=== PATIENT | female | born 1940 | race Caucasian/White ===

== ENCOUNTER 2019-07-13 07:47 | Observation (INO) ==
--- NOTE | 2019-06-25 15:17 | Anesthesiology Consultation ---
Date of Service June 25, 2019 Assessment & Plan (1) Encounter for pre-operative examination: Chart Review Chart Review: Pending: Refer to Additional Notes / Consult section (surgeon ordered cardio clearance 06/28/19) and Patient NOT seen in Pre Admission Testing Awaiting surgeon ordered cardio clearance 06/28/19 History Surgery Operation Date: 06/30/19 13:10 Proposed Procedures p Open Repair Ventral Hernia Possible Mesh - Tino Hein MD Height/Weight Height: 5 ft Weight: 70.307 kg Allergies Allergy/AdvReac Type Severity Reaction Status Date / Time celecoxib AdvReac Intermediate GI SYMPTOMS Verified 06/25/19 13:07 hydrocodone AdvReac Unknown STOMACH Verified 06/25/19 13:07 IRRITATION Medications Home Medications Medication Instructions Recorded Confirmed Last Taken atorvastatin 40 mg PO QAM 06/25/19 06/25/19 Unknown carbidopa-levodopa 1 tab PO TID 06/25/19 06/25/19 Unknown clopidogrel 75 mg PO QAM 06/25/19 06/25/19 Unknown levothyroxine 125 mcg PO QAM 06/25/19 06/25/19 Unknown lisinopril 5 mg PO QAM 06/25/19 06/25/19 Unknown metoprolol succinate 25 mg PO QAM 06/25/19 06/25/19 Unknown pantoprazole 40 mg PO QAM 06/25/19 06/25/19 Unknown Past Medical History Medical History (Updated 06/25/19 @ 15:38 by Luisa Motley PA-C) Anxiety CAD (coronary artery disease) 08/2007= PCI of RCA and LCx with FABIOLA; 04/2008= PCI of mid RCA with 2 FABIOLA ; 2008 PCI of pLAD; 2012- FABIOLA to mid RCA GERD (gastroesophageal reflux disease) Hyperlipidemia Hypertension Hypothyroidism Parkinson disease Prediabetes Per records Past Family History Family History (Updated 06/25/19 @ 13:23 by Tatianna Vidales RN) Mother Diabetes Past Surgical History Surgical History (Updated 06/25/19 @ 15:34 by Luisa Motley PA-C) History of ankle surgery LEFT History of arthroplasty of right knee x 2 per records History of cardiac cath 08/2007, 04/2008, 2008, 2012 History of cholecystectomy Per records History of colonoscopy History of herniorrhaphy Per records History of hysterectomy History of thumb surgery Per records- right thumb Hx of angioplasty FOLLOWS [place] Social History Smoking Status: Never smoker Do You Dip or Chew Tobacco: No Hx Alcohol Use: No Hx Substance Use: No substance use type: does not use Testing Laboratory Results 06/24/2019 WBC: 5.44 H/H: 13.2/41.2 PLATELETS: 238 SODIUM: 141 POTASSIUM: 3.9 CHLORIDE: 102 CO2: 26 BUN: 20 CREATININE: 1.1 GLUCOSE: 139 Electrocardiogram Date: 12/29/18 Findings: + NSR @ (68) Chest X-Ray Date: 12/16/18 Findings: + NAD Echocardiogram Date: 05/14/18 EF: 55 to 59% LV Function: normal RWMA: + none Other Findings: + LVH (Concentric/borderline) Left atrium moderately enlarged. Grade 1 diastolic dysfunction. Mild aortic sclerosis is present. Aortic stenosis is absent. Proximal ascending thoracic aorta is mildly enlarged with diameter 4 cm. Stress Test Date: 01/02/15 Type: DSE Resting EF: 55-59% Resting LV Function: normal Resting RWMA: + none Stress ECHO negative for inducible ischemia. Stress EKG response normal. MPHR 99%. Mild MR. Mild AV sclerosis. Grade I diastolic dysfunction. Mild cLVH. Cardiac Catheterization Date: 03/26/13 Mid RCA 90%. FABIOLA to mid RCA successful. (per cardio 03/2019 cardio note- LM had no disease; 70% to D1, mild disease to pLAD, non dominant LCx with existing stent 60% lesion, dominant RCA with 90% lesion- s/p PCI with FABIOLA)
[~2019-07-13 07:47] MED LIST: CEFAZOLIN 2000MG 2,000 MG/15 ML SYR IV SCH; LR 15ML/HR IV SCH
[2019-07-13] MEDS ORDERED: CEFAZOLIN 2000MG 2,000 MG/15 ML SYR IV ONE (09:16)
--- NOTE | 2019-07-13 09:16 | History & Physical Bridge Note ---
Date of Service July 13, 2019 History & Physical Bridge Note I have examined the patient, reviewed the History & Physical and in the interval since the performance of the History & Physical I have noted the following changes of clinical significance: no changes noted
[2019-07-13] MEDS ORDERED: LABETALOL HCL IV 5 MG/ML 20ML IV PRN (09:58)
[2019-07-13] MEDS ORDERED: ATROPINE SULFATE 0.1 MG/ML 10ML SYR IV PRN (09:58)
[2019-07-13] MEDS ORDERED: ONDANSETRON INJ 2 MG/ML 2 ML VIAL IV PRN (09:58)
[2019-07-13] MEDS ORDERED: PROMETHAZINE HCL 6.25 MG in SODIUM CHLORIDE 0.9% 50 ML IV PRN (09:58)
[2019-07-13] MEDS ORDERED: MIDAZOLAM HCL 1 MG/ML 2ML VIAL ONE (10:02)
[2019-07-13] MEDS ORDERED: LIDOCAINE HCL 2% 2 ML VIAL/AMP(20MG/ML) INFIL ONE (10:02)
[2019-07-13] MEDS ORDERED: fentaNYL citrate 100 MCG/2 ML VIAL ONE (10:02)
[2019-07-13] MEDS ORDERED: ONDANSETRON INJ 2 MG/ML 2 ML VIAL ONE (10:02)
[2019-07-13] MEDS ORDERED: NEOSTIGMINE METHYLSULFATE 5 MG/5 ML SYR ONE (10:02)
[2019-07-13] MEDS ORDERED: ePHEDrine sulfate 50 MG/ML AMP ONE (10:02)
[2019-07-13] MEDS ORDERED: GLYCOPYRROLATE 0.2 MG/ML VIAL ONE (10:02)
[2019-07-13] MEDS ORDERED: PHENYLEPHRINE HCL 10 MG/ML VIAL ONE (10:02)
[2019-07-13] MEDS ORDERED: SUCCINYLCHOLINE CHLORIDE 20 MG/ML 10 ML VIAL ONE (10:02)
[2019-07-13] MEDS ORDERED: PROPOFOL IV EMULSION 10 MG/ML 20 ML VIAL IV ONE (10:02)
[2019-07-13] MEDS ORDERED: DEXAMETHASONE SOD INJ 4 MG/ML VIAL ONE (10:02)
[2019-07-13] MEDS ORDERED: BUPIVACAINE 0.5 % 5 MG/1 ML MPF 30ML VIAL ONE (10:29)
[2019-07-13] MEDS ORDERED: BACITRACIN OINT 15 GM TUBE ONE (10:30)
[2019-07-13] MEDS ORDERED: LIDOCAINE HCL 1% 20 ML VIAL ONE (10:30)
[2019-07-13] MEDS ORDERED: HydrALAZINE HCL 20 MG/ML VIAL ONE (11:48)
[2019-07-13] MEDS ORDERED: LARYING-O-JET KIT (LTA) ONE (11:48)
--- NOTE | 2019-07-13 11:56 | Post Operative Brief Note ---
Immediate Post Op Note v1 Date of Surgery July 13, 2019 Pre & Post Diagnosis Operation Date: 07/01/19 09:30 <No data on this case meets the specified criteria> Operation Date: 07/13/19 09:30 Pre-Op Diagnosis: Ventral Hernia without Obstruction or Gangrene Post-Op Diagnosis: Ventral Hernia without Obstruction or Gangrene I identified the patient and participated in the time-out.: Yes Procedure Operation Date: 07/01/19 09:30 <No data on this case meets the specified criteria> Operation Date: 07/13/19 09:30 Actual Procedures p Open Ventral Hernia Repair, lysis of adhesion(Not Applicable) - Tino Hein MD Surgeon Tino Hein MD [employer] Supervisor DIPIKA Claros Estimated Blood Loss 10 Findings Consistent with Post-Op Diagnosis 3 small ventral hernia, size about 1x1cm each Fluids 1000ml Specimens none Anesthesia Type General Complications none Disposition Accompanied Patient To Recovery: Yes Disposition: Recovery Room Overlapping Procedure I was immediately available: during the entire case.
[2019-07-13] MEDS ORDERED: MoRPHine SULFATE 2 MG/ML CARP IV PRN (12:16)
[2019-07-13] MEDS: fentaNYL citrate 100 MCG/2 ML VIAL IV PRN ×4 (12:17→12:32)
--- NOTE | 2019-07-13 12:42 | Anesthesiology Progress Note ---
Date of Service July 13, 2019 Anesthesia Post Procedure Vital Signs Vital Signs: Temp Pulse Pulse Resp BP BP Pulse Ox 07/13/19 12:30 69 16 155/68 H 94 07/13/19 12:20 69 16 147/58 H 99 07/13/19 12:10 36.2 C L 70 18 151/71 H 100 07/13/19 08:23 36.6 C 67 18 179/84 H 96 Pain Intensity Abdomen: Pain Intensity: 6 Transfer of Care Handoff Completed per policy Notes Mental Status: alert / awake / arousable Patient Amnestic to Procedure: Yes Nausea / Vomiting: adequately controlled Pain: adequately controlled Airway Patency, RR, SpO2: stable & adequate BP & HR: stable & adequate Hydration State: stable & adequate Anesthetic Complications: no major complications apparent
[2019-07-13] MEDS ORDERED: CARBIDOPA/LEVODOPA 50/200MG EXT REL TAB PO SCH ×2 (14:00→21:00)
[2019-07-13] MEDS ORDERED: CARBIDOPA/LEVODOPA 25/100MG TAB PO SCH ×3 (14:00→16:00)
--- NOTE | 2019-07-13 14:32 | Hospitalist Consultation ---
Date of Consultation July 13, 2019 Assessment & Plan (1) Status post repair of ventral hernia: -POD#[address] her[address] repair per Dr. Hein -Management as per general surgery (2) CAD (coronary artery disease): -Appears stable, no reports of chest pain -Resume aspirin and Plavix tomorrow per general surgery, continue statin and beta-paul -Plavix has been on hold 4 days preoperatively (3) Parkinson disease: -Continue carbidopa/levodopa, rasagiline (4) Anxiety: -Continue sertraline (5) Hypothyroid: -Continue levothyroxine (6) DVT prophylaxis: -SCDs as per general surgery Thank you for this consultation. We will follow the patient with you during their hospital stay. You can reach a member of the [facility] Hospitalist Team 02/12 via pager @ [phone]. Supervising Physician Co-Signing Physician Notes Attending addendum The patient was seen and examined in medical floor She is a status post repair of ventral hernia with history of significant CAD with multiple stent placement Denies any other symptoms except abdominal discomfort and pain On examination Lying in bed comfortably Hemodynamically stable with blood pressure on the upper side of systolic 172 Chest-clear to auscultate bilaterally Heart-S1-S2, regular Abdomen-not examined Extremities-trace edema bilaterally DENTAL INTERN-alert, awake and oriented x3 Labs before surgery reviewed Has significant CAD with multiple stent placement in the past-remains stable and free of symptoms Status post ventral hernia repair, POD #0; management as per surgery Agree with assessment and plan as outlined above by Mary Sutherland History of Present Illness Reason for Consultation: Postop medical management Requesting Physician: Dr. Hein Attending Physician: Dr. Sutherland History of Present Illness 78-year-old female who is status post ventral hernia repair today by Dr. Hein. Postoperatively, the patient is reporting some nausea however otherwise is doing well. She has not had any vomiting. Pain is well controlled. Denies chest pain shortness of breath. No lightheadedness or dizziness. She has voided since surgery. Allergies Allergy/AdvReac Type Severity Reaction Status Date / Time celecoxib AdvReac Intermediate GI SYMPTOMS Verified 07/13/19 08:20 hydrocodone AdvReac Unknown STOMACH Verified 07/13/19 08:20 IRRITATION Home Medications Home Medications Medication Instructions Recorded Confirmed Type atorvastatin 40 mg PO QAM 06/25/19 07/13/19 History carbidopa-levodopa 1 tab PO PM 06/25/19 07/13/19 History clopidogrel 75 mg PO QAM 06/25/19 07/13/19 History levothyroxine 125 mcg PO QAM 06/25/19 07/13/19 History lisinopril 5 mg PO QAM 06/25/19 07/13/19 History metoprolol succinate 37.5 mg PO QAM 06/25/19 07/13/19 History pantoprazole 40 mg PO QAM 06/25/19 07/13/19 History aspirin 81 mg PO DAILY 07/13/19 07/13/19 History carbidopa-levodopa 1.5 tab PO TID 07/13/19 07/13/19 History multivitamin 1 cap PO DAILY 07/13/19 07/13/19 History rasagiline 1 mg PO DAILY 07/13/19 07/13/19 History sertraline 50 mg PO DAILY 07/13/19 07/13/19 History Patient History Medical History Anxiety CAD (coronary artery disease) Status post August 2007 PCI of both the RCA and LCX with FABIOLA Status post April 2008 PCI of the mid RCA with 2 FABIOLA Status post May 2008 PCI of the proximal LAD Status post March 2013 PCI of the RCA with a FABIOLA GERD (gastroesophageal reflux disease) Hyperlipidemia Hypertension Hypothyroidism Parkinson disease Prediabetes Per records Surgical History History of ankle surgery LEFT History of arthroplasty of right knee x 2 per records History of cardiac cath 08/2007, 04/2008, 2008, 2012 History of cholecystectomy Per records History of colonoscopy History of herniorrhaphy Per records History of hysterectomy History of thumb surgery Per records- right thumb Hx of angioplasty FOLLOWS [place] Family History Mother Diabetes Social History Preferred Language: Albanian Communication Ability: Effective Certified Social Workers In Health Care Required: No Beliefs That Will Affect Care: None Current Living Situation: Spouse Other Information That Helps Us Care for You: No Feels Safe at Home: Yes Safety Concerns: Feels Safe At This Time Smoking Status: Never smoker Do You Dip or Chew Tobacco: No ; Second Hand Exposure: No ; Tobacco Cessation Education Requested by Patient: No Hx Alcohol Use: No Hx Substance Use: No Review of Systems Review of Systems: ROS per HPI, all other systems reviewed and negative Physical Exam Constitutional: WD/WN, vitals as above Eyes: PERRL, conjunctivae normal, anicteric sclerae ENMT: external ear and nose normal, oropharynx normal Respiratory: normal respiratory effort, lungs clear to auscultation Cardiovascular: Rate/Rhythm: regular rate and regular rhythm Vessels: normal peripheral pulses Extremities: no edema Gastrointestinal (Abdomen): Inspection/Auscultation: normal bowel sounds and + abdominal surgical incision (Midline dressing dry and intact) Percussion/Palpation: + abdomen tender (Mild incisional tenderness noted) and abdomen soft; no hepatosplenomegaly Musculoskeletal: no cyanosis or clubbing, extremities motor strength 5/5 Skin: no rashes, warm and dry Neurologic: PERRL, EOMI, accommodation nl, no face palsy, no dysarthria Psychiatric: A+Ox3, euthymic affect Results & Data ([facility]) Vital Signs (Past 12 Hours) Vital Signs Temp Pulse Pulse Resp BP BP Pulse Ox 07/13/19 13:25 72 16 167/81 H 97 07/13/19 13:00 36.5 C 76 18 167/71 H 96 07/13/19 12:45 36.7 C 74 16 170/81 H 96 07/13/19 12:30 69 16 155/68 H 94 07/13/19 12:20 69 16 147/58 H 99 07/13/19 12:10 36.2 C L 70 18 151/71 H 100 07/13/19 08:23 36.6 C 67 18 179/84 H 96
[2019-07-13] MEDS: LACTATED RINGER'S 1,000 ML IV SCH ×2 (15:41→23:07)
[2019-07-13] MEDS: TRAMADOL HCL 50 MG TABLET PO PRN (17:27)
[2019-07-13] MEDS: ONDANSETRON INJ 2 MG/ML 2 ML VIAL IV PRN (17:28)
[2019-07-13] MEDS ORDERED: CLOPIDOGREL BISULFATE 75 MG TAB PO SCH ×2 (18:00)
[2019-07-13] MEDS ORDERED: CEFAZOLIN 1000MG 1,000 MG/7.5 ML SYR IV ONE (18:30)
[2019-07-13] MEDS ORDERED: ATORVASTATIN 40 MG TAB PO SCH (21:00)
--- NOTE | 2019-07-13 23:55 | Operative Report ---
DATE OF OPERATION: 07/13/2019 PREOPERATIVE DIAGNOSIS: Ventral hernia. POSTOPERATIVE DIAGNOSIS: Ventral hernia. OPERATION: Open repair of ventral hernia. SURGEON: Tino Hein MD LEAD DESIGNER: Cyn Cronin PA-C. ANESTHESIA: General. ESTIMATED BLOOD LOSS: About 20 mL. FINDINGS: Small ventral hernia, size about 1 x 1 cm each. COMPLICATIONS: None. INDICATIONS FOR THE PROCEDURE: This is an 78-year-old female who presented with symptomatic ventral hernia. The patient required to do the open repair of ventral hernia, possible with mesh. I did talk to the patient about the benefit, the risk, alternate procedure. I indicated the risks may include but not limited such as bleeding, infection, hernia recurrence, injury to bowel, patient understands. She signed informed consent and I answered all questions. DETAILS OF PROCEDURE: We brought the patient to the OR, put the patient in the supine position. The patient received SCD on bilateral legs to prevent DVT. Also, patient received 2 grams Ancef IV for prophylactic antibiotic. The patient received general anesthesia without difficulty. The abdomen was appropriately draped in routine sterile fashion. After timeout, I made about 8 cm incision on the hernia sac on the left side of the abdomen and the dissection of the subcutaneous layer, found the patient had 3 small hernias. Once we opened the fascia, we completely reduced all 3 hernia, the incision on the fascial layer and based on the 3 hernias are small, about 1 x 1 cm each, I decided to use 0 PDS to close the fascia in continuous running and also based on the patient's age and the chance of hernia recurrence is low, so once we closed the fascia with continuous running with 0 PDS, the abdomen in fascial layer was closed nicely with no tension. Then, I also used #1 Ethibond, closed the fascia, interruptedly. Hemostat is obtained. Then, I closed the subcutaneous layer by using 2-0 Vicryl continuous running, closed skin by using staple. Then, we put the dressing on. The patient tolerated the procedure well. All instrument, needle and sponge count were correct x2 at the end of the case. The patient transferred to recovery room in stable condition and based on the patient's age and also patient had significant nausea and vomiting for the last 2 weeks, we decided to admit the patient to hospital overnight. The patient and patient's family member all agreed to admit to the hospital overnight. I attest to the content of the Intraoperative Record and any orders documented therein. Any exceptions are noted below. DEVENDRA
[2019-07-14] MEDS: ONDANSETRON INJ 2 MG/ML 2 ML VIAL IV PRN (03:36)
[2019-07-14] MEDS: TRAMADOL HCL 50 MG TABLET PO PRN (05:42)
[2019-07-14] MEDS ORDERED: LEVOTHYROXINE SODIUM 125 MCG TABLET PO SCH ×2 (06:30)
[2019-07-14] MEDS ORDERED: CARBIDOPA/LEVODOPA 25/100MG TAB PO SCH (07:30)
[2019-07-14 07:52] LABS: Eosinophils # (auto) 0.02 K/uL (0-0.5); Eosinophils % (auto) 0.2 %; Hematocrit (blood only) 37.3 % (37-47); Hemoglobin 12.1 g/dL (12.0-16.0); Immature Granulocytes # (auto) 0.01 K/uL (0.00-0.02); Immature Granulocytes % (auto) 0.1 %; Lymphocytes # (auto) 1.33 K/uL (1.2-3.4); Lymphocytes % (auto) 14.3 %; Mean Corpuscular Hemoglobin 28.7 pg (25-34); Mean Corpuscular Hgb Conc 32.4 g/dL (32-36); Mean Corpuscular Volume 88.6 fL (80-100); Monocytes # (auto) 1.12 K/uL (0.11-0.59); Monocytes % (auto) 12.1 %; Neutrophils % (auto) 73.3 %; Platelet Count 209 K/uL (130-400); RDW Coefficient of Variation 14.5 % (11.5-14.5); Red Blood Count 4.21 M/uL (4.2-5.4); White Blood Count 9.28 K/uL (4.8-10.8)
[2019-07-14 08:22] LABS: Alanine Aminotransferase < 6 U/L (12-78); Albumin Level 3.1 gm/dl (3.4-5.0); Aspartate Aminotransferase 16 U/L (15-37); BUN Creatinine Ratio 16.5 (10-20); Blood Urea Nitrogen 14 mg/dl (7-18); Calcium 9.3 mg/dl (8.5-10.1); Carbon Dioxide 30 mmol/L (21-32); Chloride 102 mmol/L (98-107); Creatinine Clr Calc Pharmacy 47.4 ml/min; Est GFR (African American) 78.3; Est GFR (Non-African American) 67.6; Glucose 108 mg/dl (70-99); Potassium 3.7 mmol/L (3.5-5.1); Sodium 136 mmol/L (136-145)
[2019-07-14 08:25] LABS: Alkaline Phosphatase 67 U/L (45-117); Bilirubin,Total 1.1 mg/dl (0.2-1); Globulin 3.1 gm/dl (2.5-4.0); Total Protein 6.2 gm/dl (6.4-8.2)
[2019-07-14] MEDS ORDERED: METOPROLOL SUCC 25MG EXT REL TAB PO SCH ×4 (09:00)
[2019-07-14] MEDS ORDERED: NON-FORMULARY PATIENT'S OWN MED PO SCH (09:00)
[2019-07-14] MEDS ORDERED: SERTRALINE HCL 50 MG TABLET PO SCH (09:00)
[2019-07-14] MEDS ORDERED: MULTIVITAMIN TAB PO SCH (09:00)
[2019-07-14] MEDS ORDERED: CLOPIDOGREL BISULFATE 75 MG TAB PO SCH (09:00)
[2019-07-14] MEDS ORDERED: PANTOprazole 40 MG TAB PO SCH ×2 (09:00)
[2019-07-14] MEDS ORDERED: ASPIRIN 81 MG ECTAB PO SCH (09:00)
[2019-07-14] MEDS ORDERED: lisinopriL 5 MG TAB PO SCH ×2 (09:00)
[2019-07-14] MEDS ORDERED: ATORVASTATIN 40 MG TAB PO SCH ×2 (09:00)
--- NOTE | 2019-07-14 09:14 | Hospitalist Progress Note ---
Date of Service July 14, 2019 Assessment & Plan (1) Status post repair of ventral hernia: Ventral Hernia without Obstruction or Gangrene -s/p ventral hernia repair per Dr. Hein on 07/13/2019 -general surgery service discharging the patient on 07/14/2019 -patient advised to follow the general surgery discharge instructions -hospitalist medicine to sign off (2) CAD (coronary artery disease): -no reports of chest pain -Resume aspirin and Plavix, continue statin and beta-paul (3) Parkinson disease: -Continue carbidopa/levodopa, rasagiline (4) Anxiety: -Continue sertraline (5) Hypothyroid: -Continue levothyroxine (6) DVT prophylaxis: -SCDs while inpatient Hospitalist service arranged for primary care doctor appointment Friday July 19, 2019 at 12:45 PM at [facility] Address: [address] [place] [address] [place] [address] Artis Admission and Anticipated Discharge Date Admission Date: July 13, 2019 Subjective Patient seen and examined. well appearing. no acute pain. no vomiting. breathing on room air. no shortness of breath. no chest pain. she is eager to go home today Review of Systems Review of Systems: All systems reviewed & are unremarkable except as noted in HPI & below Physical Exam Constitutional: WD/WN, vitals as above Eyes: PERRL, conjunctivae normal, anicteric sclerae EOM intact bilaterally ENMT: external ear and nose normal, oropharynx normal Neck: trachea midline, no thyromegaly Respiratory: normal respiratory effort, lungs clear to auscultation Cardiovascular: Rate/Rhythm: regular rate and regular rhythm Gastrointestinal (Abdomen): abdomen is soft, there is dressing over the abdomen Musculoskeletal: Head/Neck/Chest: normocephalic and head atraumatic Neurologic: PERRL, EOMI, accommodation nl, no face palsy, no dysarthria CN's II-XI intact bilaterally Psychiatric: A+Ox3, euthymic affect Results & Data ([facility]) Vital Signs (Past 12 Hours) Vital Signs Temp Pulse Pulse Resp BP BP Pulse Ox 07/14/19 06:58 36.8 C 67 16 148/81 H 95 07/14/19 03:53 36.9 C 73 18 134/79 94 03/03/20 23:00 36.7 C 73 16 129/72 95
--- NOTE | 2019-07-14 11:33 | Discharge Summary ---
ADMITTING DIAGNOSIS: Ventral hernia. DISCHARGE DIAGNOSIS: hernia. OPERATION: Open repair of ventral hernia. SURGEON: Tino Hein MD DETAILS OF DISCHARGE SUMMARY: This is an 78-year-old female who had a ventral hernia repair on 07/13/2019. The patient tolerated the procedure well; however, based on the patient's age and also patient had nausea and vomiting for last week. The patient will be required to stay in the hospital overnight after procedure. The patient stayed in the hospital overnight. The patient feels much better. No nausea, no vomiting and no fever and patient tolerates a regular diet. PHYSICAL EXAMINATION: VITAL SIGNS: Temperature is 36.8, respiratory rate is 16, heart rate is 67, blood pressure 148/81, O2 saturation 95% on room air. GENERAL: The patient is alert, awake, oriented x3. HEENT: Within normal limitation. NEUROLOGIC: Intact. NECK: No JVD. CHEST: Bilateral lung sounds clear. HEART: Normal S1, S2. No murmur. ABDOMEN: Soft, no distention. Incision intact. Mild tenderness on the incision site. No redness, no drainage. Bowel sounds positive. EXTREMITIES: No edema. PLAN: The patient wanted to go home. We discharged the patient home today. I gave the patient postop care instruction. The patient understands. The patient can take Tylenol 650 mg p.o. q. 6 hours p.r.n. for pain for 3 days. The patient understands.
== END 2019-07-14 11:00 | disposition home health service (06) ==
LOC: ASU 07:47 → 3N 07:47

== ENCOUNTER 2019-08-14 09:58 | Inpatient (IN) ==
--- NOTE | 2019-08-14 10:25 | Emergency Department Note ---
Impression & Plan Syncope, Elevated troponin, Nausea, Hypertension ED Provider Note NAME: KESHA CALLES AGE: 78 SEX: F : 1940 ARRIVES VIA: Walk-In INFORMANT: Patient ED PROVIDER(S): Serjio Fraire DO CHIEF COMPLAINT: Syncope and nausea HPI: Patient is an 78-year-old female who presents the ER following a syncopal episode that occurred this morning around 1 AM. She notes she was trying to go to the bathroom. She notes she has passed out 2 days ago as well. Yesterday she fell while trying to get a remote. She denies any chest pain or shortness of breath. Patient denies any belly pain but admits to some nausea. Nausea has been present since the surgery. She also admits to some intermittent dry heaving. This has all been present since her hernia repair on July 12. This was performed by Dr. Hein. No other exacerbating or remitting factors. She notes that from the fall yesterday she did hurt her foot. Complains of minimal amount of pain over the mid arch of her right foot. This is persistent and worse with walking. ROS: See above HPI for pertinent positives & negatives. A total of 10 systems reviewed and were otherwise negative. PAST MEDICAL HISTORY:See Below PAST SURGICAL HISTORY:See Below FAMILY HISTORY:See Below SOCIAL HISTORY:See Below HOME MEDICATIONS:See Below ALLERGIES:See Below VITALS:See Below PHYSICAL EXAMINATION: GENERAL: alert, chronically ill appearing, well nourished, no distress, non- toxic HEAD: normal cephalic, atraumatic EYE EXAM: normal conjunctiva, PERRL and EOM's grossly intact OROPHARYNX: no exudate, no erythema, lips, buccal mucosa, and tongue normal and mucous membranes are moist NECK: supple, no nuchal rigidity, no adenopathy, non-tender CHEST: stable to compression anteriorly and posteriorly LUNGS: clear to auscultation. Normal chest wall mechanics HEART: no murmurs, S1 normal and S2 normal ABDOMEN: abdomen soft, non-tender, normo-active bowel sounds, no masses, no rebound or guarding. PELVIS: stable to compression anteriorly and posteriorly BACK: Back is symmetrical on inspection and there is no deformity, no midline tenderness, no CVA tenderness. UPPER EXTREMITIES: full active and passive range of motion of all joints without tenderness to palpation LOWER EXTREMITIES: full active and passive range of motion of all joints without tenderness to palpation with exception of the arch of the right foot. There is bruising dorsal surface of right toe. NEURO EXAM: Normal sensorium, cranial nerves II-XII intact, normal speech, no weakness of arms, no weakness of legs. No drift. [id number] intact. GCS: 15. MEDICAL DECISION MAKING: Patient is an 78-year-old female who presents the ER following a mechanical fall yesterday who had a syncopal episode this morning at 1 AM while she was trying to go to the bathroom. Upon review of her chart recent diagnosis of subdural and subarachnoid hemorrhage was transferred to [facility] [place] in mid July. She notes that since then she has been feeling consistently pretty weak and has been unsteady on her feet. She has been nauseated and had an upset stomach since early July when her hernia repair was performed. IV was established blood work was obtained showed no significant leukocytosis or anemia. BMP with LFTs and adrienne irubin was unremarkable. Troponin was detectable at 0.083. EKG consistent with old. She denied any chest pain or shortness of breath. UA was contaminated with multiple epithelial cells although did have some nitrates. Did hold on treatment and defer to hospitalist as she is asymptomatic. EKG was not significantly changed from previous. Patient was updated at bedside and admitted to the hospitalist for further work-up of her syncopal episodes associated with weakness, ambulatory dysfunction and elevated troponin. Did consider PE although she has no chest pain or shortness of breath. She is not tachycardic or hypoxic. Do favor this is less likely. Triage Nursing notes reviewed. Prior medical records reviewed Vital Signs: reviewed and remarkable for hypertension Differential diagnosis: Differential diagnoses include major intracranial, cervical, spinal, thoracic, abdominal, pelvic and neurologic injury. Fracture, contusion, sprain, strain, laceration, abrasions included as well. ER treatment provided: See below Diagnostics interpreted by me: ECG: Sinus rhythm rate of 65 Left axis T WI in the inferior leads Normal QTC No PVCs Cardiac Monitoring: Sinus rhythm rate of 70 Laboratory studies: As stated above and show below. Imaging studies: Portable AP upright 1 view of the chest shows no focal infiltrate. 2 views of the abdomen shows no obstruction CT of the head and cervical spine showed no acute fractures or bleeds Consultation(s): Discussed with Porfirio De Santiago from [facility] hospitalist team. ED COURSE: Procedures: none Critical Care: None Past Med/Surg History Social History Preferred Language: Nepali Communication Ability: Effective Sizing Sprayer Required: No Beliefs That Will Affect Care: None marital status: Current Living Situation: Spouse Feels Safe at Home: Yes Smoking Status: Never smoker Second Hand Exposure: No ; Hx Alcohol Use: No Hx Substance Use: No Allergies Allergies Allergy/AdvReac Type Severity Reaction Status Date / Time celecoxib AdvReac Intermediate GI SYMPTOMS Verified 07/23/19 12:22 hydrocodone AdvReac Unknown STOMACH Verified 07/23/19 12:22 IRRITATION Home Meds Home Medications Medication Instructions Recorded Confirmed atorvastatin 40 mg PO QAM 06/25/19 08/14/19 carbidopa-levodopa 1 tab PO PM 06/25/19 08/14/19 clopidogrel 75 mg PO QAM 06/25/19 08/14/19 levothyroxine 125 mcg PO QAM 06/25/19 08/14/19 lisinopril 5 mg PO QAM 06/25/19 08/14/19 metoprolol succinate 37.5 mg PO QAM 06/25/19 08/14/19 pantoprazole 40 mg PO QAM 06/25/19 08/14/19 aspirin 81 mg PO DAILY 07/13/19 08/14/19 carbidopa-levodopa 1.5 tab PO TID 07/13/19 08/14/19 multivitamin 1 cap PO DAILY 07/13/19 08/14/19 rasagiline 1 mg PO DAILY 07/13/19 08/14/19 sertraline 50 mg PO DAILY 07/13/19 08/14/19 vitamins A,C,E-mcru-orodjk 0 tab PO DAILY 07/23/19 08/14/19 [PreserVision AREDS] fluconazole 200 mg PO DAILY 08/14/19 08/14/19 ranitidine HCl 150 mg PO DAILY 08/14/19 08/14/19 Results & Data (ED) Vital Signs Vital Signs - 24 hr 08/14/19 10:02 08/14/19 11:19 08/14/19 12:39 Temperature 36.5 C Temperature Source Oral Pulse Rate 71 Pulse Rate [Apical] 72 62 Pulse Rhythm Regular Pulse Rhythm [Apical] Regular Regular Pulse Strength Normal Respiratory Rate 18 18 18 Respiratory Effort / Characteristics Non-Labored Non-Labored Spontaneous Non-Labored Spontaneous Respiratory Depth Normal Normal Normal Respiratory Pattern Regular Regular Regular Blood Pressure 167/84 H Blood Pressure [Left Arm] 190/97 H 197/98 H Blood Pressure Mean 111 Blood Pressure Mean [Left Arm] 128 131 Blood Pressure Position Sitting Pulse Oximetry 99 100 98 Oxygen Delivery Method Room Air Room Air Room Air Sepsis Recent Fever Within 48 Hours No Sepsis Action Taken by Nursing No Action Required 08/14/19 12:47 Temperature Temperature Source Pulse Rate Pulse Rate [Apical] 65 Pulse Rhythm Pulse Rhythm [Apical] Pulse Strength Respiratory Rate 17 Respiratory Effort / Characteristics Respiratory Depth Respiratory Pattern Blood Pressure Blood Pressure [Left Arm] 152/100 H Blood Pressure Mean Blood Pressure Mean [Left Arm] 117 Blood Pressure Position Pulse Oximetry 97 Oxygen Delivery Method Room Air Sepsis Recent Fever Within 48 Hours Sepsis Action Taken by Nursing Laboratory Data Result diagrams: 08/14/19 10:40 08/14/19 10:40 Lab Results 08/14/19 08/14/19 08/14/19 Range/Units 10:40 10:40 11:15 WBC 8.03 (4.8-10.8) K/uL RBC 4.21 (4.2-5.4) M/uL Hgb 12.3 (12.0-16.0) g/dL Hct 37.2 (37-47) % MCV 88.4 (80-100) fL MCH 29.2 (25-34) pg MCHC 33.1 (32-36) g/dL RDW Std Deviation 50.2 H (36.4-46.3) fL RDW Coeff of Ananya 15.5 H (11.5-14.5) % Plt Count 259 (130-400) K/uL MPV 9.5 (7.4-10.4) fL Immature Gran % (Auto) 0.1 % Neut % (Auto) 76.4 % Lymph % (Auto) 13.4 % Ballard % (Auto) 9.7 % Eos % (Auto) 0.4 % Baso % (Auto) 0.0 % Immature Gran # (Auto) 0.01 (0.00-0.02) K/uL Neut # (Auto) 6.13 (1.4-6.5) K/uL Lymph # (Auto) 1.08 L (1.2-3.4) K/uL Ballard # (Auto) 0.78 H (0.11-0.59) K/uL Eos # (Auto) 0.03 (0-0.5) K/uL Baso # (Auto) 0.00 (0-0.2) K/uL Sodium 134 L (136-145) mmol/L Potassium 3.8 (3.5-5.1) mmol/L Chloride 101 (98-107) mmol/L Carbon Dioxide 28 (21-32) mmol/L Anion Gap 6.0 (3-11) BUN 15 (7-18) mg/dl Creatinine 1.06 (0.6-1.2) mg/dl Est Cr Clr Drug Dosing Not Reportable Est GFR ( Amer) 57.4 Est GFR (Non-Af Amer) 49.6 BUN/Creatinine Ratio 13.9 (10-20) Glucose 108 H (70-99) mg/dl Calcium 9.0 (8.5-10.1) mg/dl Magnesium 1.8 (1.8-2.4) mg/dl Total Bilirubin 0.9 (0.2-1) mg/dl AST 22 (15-37) U/L ALT 13 (12-78) U/L Alkaline Phosphatase 86 (45-117) U/L Troponin I 0.083 H* (0-0.045) ng/ml Total Protein 7.1 (6.4-8.2) gm/dl Albumin 3.7 (3.4-5.0) gm/dl Globulin 3.4 (2.5-4.0) gm/dl Albumin/Globulin Ratio 1.1 (0.9-2) TSH 0.320 (0.300-4.500) uIu/ml Urine Color Yellow Urine Appearance Clear (Clear) Urine pH 5.5 (4.5-7.5) Ur Specific [place] 1.008 (1.000-1.030) Urine Protein Negative (Negative) Urine Glucose (UA) Negative (Negative) Urine Ketones Negative (Negative) Urine Blood Negative (Negative) Urine Nitrite Positive A (Negative) Urine Bilirubin Negative (Negative) Urine Urobilinogen Negative (Negative) Ur Leukocyte Esterase 1+ H (Negative) Urine WBC (Auto) 10-30 H (0-5) /hpf Urine RBC (Auto) 0-4 (0-4) /hpf U Hyaline Cast (Auto) 1-5 (0-5) /lpf U Epithel Cells (Auto) >30 H (0-5) /lpf Urine Bacteria (Auto) 4+ H (Negative) Administered Medications Discontinued Medications Sodium Chloride (Nss) 500 mls @ 999 mls/hr IV .Q31M JESUS Stop: 08/14/19 11:00 Last Infusion: 08/14/19 11:29 Dose: 0 mls/hr Documented by: [id number] Admin: 08/14/19 10:41 Dose: 999 mls/hr Documented by: [id number] Lisinopril (Zestril) 5 mg PO NOW ONE Stop: 08/14/19 12:48 Last Admin: 08/14/19 13:03 Dose: 5 mg Documented by: [id number] Metoprolol Succinate (Toprol Xl) 37.5 mg PO NOW STA Stop: 08/14/19 12:48 Last Admin: 08/14/19 13:03 Dose: 37.5 mg Documented by: [id number] Discharge Plan Visit Data Chief Complaint: Nausea Stated Complaint: FALLS, FEELS SICK TO STOMACH ED Provider: Serjio Fraire Discharge Problem: Syncope, Elevated troponin, Nausea, Hypertension Forms Stand Alone Forms: My [facility] Prescriptions Prescriptions: No Action atorvastatin 40 mg Tablet 40 mg PO QAM RF: 0 carbidopa-levodopa 50-200 mg Tablet Extended Release 1 tab PO PM RF: 0 clopidogrel 75 mg Tablet 75 mg PO QAM RF: 0 pantoprazole 40 mg Tablet,Delayed Release (Dr/Ec) 40 mg PO QAM RF: 0 levothyroxine 125 mcg Tablet 125 mcg PO QAM RF: 0 lisinopril 5 mg Tablet 5 mg PO QAM RF: 0 metoprolol succinate 25 mg Tablet Extended Release 24 Hr 37.5 mg PO QAM RF: 0 multivitamin Capsule 1 cap PO DAILY RF: 0 sertraline 50 mg Tablet 50 mg PO DAILY RF: 0 carbidopa-levodopa 25-100 mg Tablet 1.5 tab PO TID RF: 0 rasagiline 1 mg tablet 1 mg PO DAILY RF: 0 aspirin 81 mg Tablet,Delayed Release (Dr/Ec) 81 mg PO DAILY RF: 0 PreserVision AREDS [id number] [id number] Tablet 0 tab PO DAILY RF: 0 fluconazole 100 mg tablet 200 mg PO DAILY RF: 0 ranitidine HCl 150 mg tablet 150 mg PO DAILY RF: 0 Discharge Problem: Syncope Qualifiers: Syncope type: unspecified Qualified Code(s): R55 - Syncope and collapse Hypertension Qualifiers: Hypertension type: unspecified Qualified Code(s): I10 - Essential (primary) hypertension
[2019-08-14] MEDS ORDERED: SODIUM CHLORIDE 0.9% 500 ML IV SCH (10:30)
[2019-08-14 10:47] LABS: Eosinophils # (auto) 0.03 K/uL (0-0.5); Eosinophils % (auto) 0.4 %; Hematocrit (blood only) 37.2 % (37-47); Hemoglobin 12.3 g/dL (12.0-16.0); Immature Granulocytes # (auto) 0.01 K/uL (0.00-0.02); Immature Granulocytes % (auto) 0.1 %; Lymphocytes # (auto) 1.08 K/uL (1.2-3.4); Lymphocytes % (auto) 13.4 %; Mean Corpuscular Hemoglobin 29.2 pg (25-34); Mean Corpuscular Hgb Conc 33.1 g/dL (32-36); Mean Corpuscular Volume 88.4 fL (80-100); Mean Platelet Volume 9.5 fL (7.4-10.4); Monocytes # (auto) 0.78 K/uL (0.11-0.59); Monocytes % (auto) 9.7 %; Neutrophils # (auto) 6.13 K/uL (1.4-6.5); Neutrophils % (auto) 76.4 %; Platelet Count 259 K/uL (130-400); RDW Coefficient of Variation 15.5 % (11.5-14.5); RDW Standard Deviation 50.2 fL (36.4-46.3); Red Blood Count 4.21 M/uL (4.2-5.4); White Blood Count 8.03 K/uL (4.8-10.8)
[2019-08-14 11:04] LABS: Alanine Aminotransferase 13 U/L (12-78); Albumin Level 3.7 gm/dl (3.4-5.0); Aspartate Aminotransferase 22 U/L (15-37); BUN Creatinine Ratio 13.9 (10-20); Blood Urea Nitrogen 15 mg/dl (7-18); Carbon Dioxide 28 mmol/L (21-32); Chloride 101 mmol/L (98-107); Est GFR (African American) 57.4; Est GFR (Non-African American) 49.6; Glucose 108 mg/dl (70-99); Magnesium 1.8 mg/dl (1.8-2.4); Potassium 3.8 mmol/L (3.5-5.1); Sodium 134 mmol/L (136-145)
--- NOTE | 2019-08-14 11:08 | CT Scan Report ---
CT head/brain wo con CLINICAL HISTORY: 78 years-old Female presenting with fall. TECHNIQUE: Multidetector CT imaging of the head was performed without the use of intravenous contrast . IV contrast: None. One or more dose lowering techniques were used consistent with the principles of ALARA (as low as reasonably achievable), including automatic exposure control, mA or kV adjustment t o individual patient size, and/or use of iterative reconstruction. COMPARISON: 07/23/2019. CT DOSE (mGy.cm): The estimated cumulative dose is 943.72 mGy.cm. FINDINGS: Appeals Referee topogram: The patient is edentulous. Proportional ventricular and sulcal prominence, likely age-related parenchymal volume loss. No hemorr sha. Periventricular and subcortical white matter hypoattenuation, nonspecific but likely indicative of chronic small vessel ischemic change. No acute territorial infarct. No mass effect or midline cristofer ft. No extra-axial fluid collection. Chronic changes of the right maxillary sinus. Calvarium intact. IMPRESSION: 1. Chronic small vessel ischemic change. No acute intracranial abnormality. ACT 112: Negative or not required by law. Electronically signed by: Ghulam Santoyo M.D. 08/14/2019 11:07 AM
--- NOTE | 2019-08-14 11:12 | CT Scan Report ---
CT cervical spine wo con CLINICAL HISTORY: 78 years-old Female presenting with fall. TECHNIQUE: Multidetector CT of the cervical spine was performed without the use of intravenous contra st. IV contrast: None. One or more dose lowering techniques were used consistent with the principles of ALARA (as low as reasonably achievable), including automatic exposure control, mA or kV adjustment to individual patient size, and/or use of iterative reconstruction. COMPARISON: 07/23/2019. CT DOSE (mGy.cm): The estimated cumulative dose is 943.72. FINDINGS: Financial Services Counselor topogram: Unremarkable. Normal cervical lordosis. Vertebral bodies maintain normal height and alignment. Intervertebral disc height loss to a moderate degree at C6-7, where there is the greatest degree of degenerative change w ith a disc osteophyte complex. Mild posterior spondylitic spurring. Evaluation of the soft tissues of the spinal does not demonstrate further effacement. Degenerative changes at the atlantodental articu lation. Mild facet arthropathy and uncovertebral hypertrophy result in varying degrees of osseous len ral foraminal narrowing. No acute fracture or subluxation. Visualized portion of the skull base intact. Paraspinal soft tissue s within normal limits. IMPRESSION: 1. No acute osseous injury of the cervical spine. 2. Multilevel degenerative changes. ACT 112: Negative or not required by law. Electronically signed by: Ghulam Santoyo M.D. 08/14/2019 11:11 AM
--- NOTE | 2019-08-14 11:14 | XRay Report ---
XR chest 1V portable CLINICAL HISTORY: 78 years-old Female presenting with weakness. TECHNIQUE: Portable upright AP view of the chest was obtained. COMPARISON: 07/23/2019. FINDINGS: Atherosclerosis of the aortic arch. Cardiac silhouette mildly enlarged. No focal opacity. No large ef fusion or pneumothorax. Degenerative changes of the thoracic spine. Upper abdomen normal. IMPRESSION: 1. Mild cardiomegaly. No other convincing evidence of acute cardiopulmonary disease. ACT 112: Negative or not required by law. Electronically signed by: Ghulam Satnoyo M.D. 08/14/2019 11:13 AM
[2019-08-14 11:25] LABS: Albumin Globulin Ratio 1.1 (0.9-2); Alkaline Phosphatase 86 U/L (45-117); Bilirubin,Total 0.9 mg/dl (0.2-1); Globulin 3.4 gm/dl (2.5-4.0); Total Protein 7.1 gm/dl (6.4-8.2); Troponin I 0.083 ng/ml (0-0.045)
[2019-08-14 11:31] LABS: Appearance Urine Clear (Clear); Bacteria Urine Automated 4+ (Negative); Bilirubin Urine Negative (Negative); Blood Urine Negative (Negative); Color Urine Yellow; Epithelial Cell Urine Auto >30 /lpf (0-5); Glucose Urine UA Negative (Negative); Ketones Urine Negative (Negative); Leukocyte Esterase Urine 1+ (Negative); Nitrite Urine Positive (Negative); Protein Urine Negative (Negative); RBC Urine Automated 0-4 /hpf (0-4); Specific Gravity Urine 1.008 (1.000-1.030); Urobilinogen Urine Negative (Negative); pH Urine 5.5 (4.5-7.5)
--- NOTE | 2019-08-14 12:17 | XRay Report ---
XR abdomen min 2V CLINICAL HISTORY: 78 years-old Female presenting with ? sbo already shot ccxr. TECHNIQUE: Single supine view of the abdomen was obtained. COMPARISON: CT from 07/23/2019 and chest x-ray performed earlier today.. FINDINGS: Mild stool burden throughout normal caliber colon. Nonobstructive bowel gas pattern. No gross pneumop eritoneum. Allowing for bowel gas and stool, no calcifications to suggest nephrolithiasis. Few pelvic phlebolith s. Atherosclerotic calcification. Degenerative changes of the spine. Mild levocurvature of the lumbar spine. Lung bases clear. IMPRESSION: 1. No acute intra-abdominal pathology. ACT 112: Negative or not required by law. Electronically signed by: Ghulam Santoyo M.D. 08/14/2019 12:15 PM
[2019-08-14] MEDS ORDERED: lisinopriL 5 MG TAB PO ONE (12:47)
[2019-08-14] MEDS ORDERED: METOPROLOL SUCC 25MG EXT REL TAB PO STA (12:47)
[2019-08-14] MEDS ORDERED: cefTRIAXone SODIUM 2,000 MG/70 ML BAG IV STA (12:56)
[2019-08-14 13:27] LABS: Estimated Average Glucose 123 mg/dl; Hemoglobin A1C 5.9 % (4.5-5.6)
[2019-08-14 13:37] LABS: D Dimer 3930 ug/L FEU (0-500)
--- NOTE | 2019-08-14 14:01 | History & Physical Report ---
Date of Service August 14, 2019 Assessment & Plan (1) Syncope: Patient reports multiple falls at home for the last 3 to 4 weeks She feels as though she had a mechanical fall and her states that she tripped over something. There is no significant loss of consciousness This time CT scan of the head is negative EKG with no telltale's Echocardiogram is ordered Monitor on telemetry PT/OT (2) Elevated troponin: We will check 2 more sets of cardiac isos EKG in the morning Echocardiogram nonurgently No indication to involve cardiology at this time. (3) Candidiasis of mouth: Patient on fluconazole as an outpatient We will place the patient on nystatin swish and swallow Continue to monitor (4) Nausea: CT abdomen pelvis is negative Antiemetic per Dr. Salinas No vomiting Follow expectantly (5) Parkinson disease: Follows with Dr. Rere Yanes from [facility] Patient is to continue outpatient management Continue levodopa carbidopa while inpatient Fall precaution PT/OT (6) CAD (coronary artery disease): Patient denies any chest pain or tightness Last intervention per patient report is 2012 Continue home meds including lisinopril and metoprolol Monitor on telemetry (7) Hypertension: Hypertensive urgency in the emergency department Patient was given her home medications and systolic pressure dropped down to 152 Continue home meds Follow cardiac work-up Monitor on telemetry (8) Dyslipidemia: Continue atorvastatin (9) Hypothyroid: Patient's TSH was low last month. Currently receiving levothyroxine 125 mcg daily Check a free T4 (10) DVT prophylaxis: Continue aspirin and Plavix for now Check a lower extremity Doppler secondary to asymmetrical edema in the left calf with associated pain with palpation Please refer to Dr. Salinas's addendum for further recommendations. Admission and Anticipated Discharge Date Admission Date: 08/14/2019 Anticipated date of discharge: 08/16/19 History of Present Illness Primary Care Provider: Raisa Martin MD Attending: Dr. Salinas This is an 78-year-old female that lives at home with her . She has a past medical history including Parkinson's disease, coronary artery disease, history of angioplasty, multiple falls, hypothyroidism, dyslipidemia, hypertension, anxiety. The patient states that she has had multiple falls in the last several weeks. This morning she was doing well with no particular ill feelings when she fell forward hyperextending the toes on both feet and falling onto her knees. She s tates that her witnessed the fall. There was no loss of consciousness but patient did feel foggy. She denies any head injury or long bone injury or pain. The patient states that she has also had some nausea and dry heaves but no vomiting. She has had no fever or chills. She denies any shortness of breath. She has no significant cough or sputum production. She is a non- smoker. She has no other acute complaints. The patient did have a open hernia repair at [facility] at the beginning of July with Dr. Hein. Since that time, the patient has reported nausea. She has no dysphasia. She has bowel movements every 1 to 2 days. Her most recent bowel movement was yesterday which was mixed between formed and soft. She denies any blood in her stool. She has no evidence of peptic ulcer disease. She denies any chest pain. She does report some left calf pain and left calf swelling which is unusual for her. She denies any history of deep vein thrombosis. However, she has had superficial vein thrombosis on the left leg in the past. Patient has no history of malignancy. Most recent coronary intervention was in 2012 with PCI with stenting. The patient followed with Haley Garcia PA-C with [facility] cardiology. The patient has never been on warfarin or other anticoagulants but is chronically on Plavix 75 mg p.o. daily. Due to the patient's many falls, she has seen Dr. Martin in the outpatient office. Lisinopril was recently decreased. Patient is unaware of any other acute medication changes. The patient has no interaction with sick contacts as of late. She has no travel. She has had no visitors from endemic areas or with COVID-19 symptoms or positive testing. The patient has never been a smoker. The patient states that she uses a cane when out in public and a walker at home. She self reports multiple falls over the last 4 weeks. Allergies Allergy/AdvReac Type Severity Reaction Status Date / Time celecoxib AdvReac Intermediate GI SYMPTOMS Verified 07/23/19 12:22 hydrocodone AdvReac Unknown STOMACH Verified 07/23/19 12:22 IRRITATION Home Medications Home Medications Medication Instructions Recorded Confirmed Type atorvastatin 40 mg PO QAM 06/25/19 08/14/19 History carbidopa-levodopa 1 tab PO PM 06/25/19 08/14/19 History clopidogrel 75 mg PO QAM 06/25/19 08/14/19 History levothyroxine 125 mcg PO QAM 06/25/19 08/14/19 History lisinopril 5 mg PO QAM 06/25/19 08/14/19 History metoprolol succinate 37.5 mg PO QAM 06/25/19 08/14/19 History pantoprazole 40 mg PO QAM 06/25/19 08/14/19 History aspirin 81 mg PO DAILY 07/13/19 08/14/19 History carbidopa-levodopa 1.5 tab PO TID 07/13/19 08/14/19 History multivitamin 1 cap PO DAILY 07/13/19 08/14/19 History rasagiline 1 mg PO DAILY 07/13/19 08/14/19 History sertraline 50 mg PO DAILY 07/13/19 08/14/19 History vitamins A,C,Z-euwh-lakisu 0 tab PO DAILY 07/23/19 08/14/19 History [PreserVision AREDS] fluconazole 200 mg PO DAILY 08/14/19 08/14/19 History ranitidine HCl 150 mg PO DAILY 08/14/19 08/14/19 History Past Med/Surg History Medical History Anxiety CAD (coronary artery disease) Status post August 2007 PCI of both the RCA and LCX with FABIOLA Status post April 2008 PCI of the mid RCA with 2 FABIOLA Status post May 2008 PCI of the proximal LAD Status post March 2013 PCI of the RCA with a FABIOLA GERD (gastroesophageal reflux disease) Hyperlipidemia Hypertension (Acute) Hypothyroidism Parkinson disease Prediabetes Per records Surgical History History of ankle surgery LEFT History of arthroplasty of right knee x 2 per records History of cardiac cath 08/2007, 04/2008, 2008, 2012 History of cholecystectomy Per records History of colonoscopy History of herniorrhaphy Per records History of hysterectomy History of thumb surgery Per records- right thumb Hx of angioplasty FOLLOWS [place] Family History Mother Diabetes Social History Preferred Language: Malian Communication Ability: Effective Jukebox Routeman Required: No Beliefs That Will Affect Care: None marital status: Current Living Situation: Spouse Feels Safe at Home: Yes Smoking Status: Never smoker Second Hand Exposure: No ; Hx Alcohol Use: No Hx Substance Use: No Review of Systems Review of Systems: All systems reviewed & are unremarkable except as noted in HPI & below Physical Exam Physical Exam: GENERAL : No acute distress. Pleasant. No garbled speech. No shortness of breath with full sentences. EYES: No icterus, gaze conjugate. Pupils are equal NOSE: No evidence of epistaxis MOUTH: No lesions. There is evidence of candidiasis on the tongue and posterior oropharynx. NECK: Supple. No carotid bruits LUNGS: CTA B/L, no wheezes, rales or rhonchi HEART: Regular, rate controlled ABDOMEN: Soft, NT, ND, BS Present. Healing surgical scar with no open areas or induration. EXTREMITIES: Left LE edema, pedal pulses intact and equal bilaterally. There is bruising on the dorsal surface of right and left great toes. There is also some evidence of ecchymosis on the dorsal surface of the right foot. Patient is able to move her toes foot and ankle without difficulty other than a minimal amount of pain. NEURO: A&OX3 Results & Data Results & Data ([facility]) Vital Signs (Past 12 Hours) Vital Signs Temp Pulse Pulse Resp BP BP Pulse Ox 08/14/19 12:47 65 17 152/100 H 97 08/14/19 12:39 62 18 197/98 H 98 08/14/19 11:19 72 18 190/97 H 100 08/14/19 10:02 36.5 C 71 18 167/84 H 99 Laboratory Results 08/14/19 10:40 08/14/19 10:40 Magnesium: 1.[address] head/brain wo con CLINICAL HISTORY: 78 years-old Female presenting with fall. TECHNIQUE: Multidetector CT imaging of the head was performed without the use of intravenous contrast. IV contrast: None. One or more dose lowering techniques were used consistent with the principles of ALARA (as low as reasonably achievable), including automatic exposure control, mA or kV adjustment to individual patient size, and/or use of iterative reconstruction. COMPARISON: 07/23/2019. CT DOSE (mGy.cm): The estimated cumulative dose is 943.72 mGy.cm. FINDINGS: Butcher Assistant topogram: The patient is edentulous. Proportional ventricular and sulcal prominence, likely age-related parenchymal volume loss. No hemorrhage. Periventricular and subcortical white matter hypoattenuation, nonspecific but likely indicative of chronic small vessel ischemic change. No acute territorial infarct. No mass effect or midline shift. No extra-axial fluid collection. Chronic changes of the right maxillary sinus. Calvarium intact. IMPRESSION: 1. Chronic small vessel ischemic change. No acute intracranial abnormality. ACT 112: Negative or not required by law. Electronically signed by: Ghulam Snatoyo M.D. 08/14/2019 11:[address] cervical spine wo con CLINICAL HISTORY: 78 years-old Female presenting with fall. TECHNIQUE: Multidetector CT of the cervical spine was performed without the use of intravenous contrast. IV contrast: None. One or more dose lowering techniques were used consistent with the principles of ALARA (as low as reasonably achievable), including automatic exposure control, mA or kV adjustment to individual patient size, and/or use of iterative reconstruction. COMPARISON: 07/23/2019. CT DOSE (mGy.cm): The estimated cumulative dose is 943.72. FINDINGS: Butcher Assistant topogram: Unremarkable. Normal cervical lordosis. Vertebral bodies maintain normal height and alignment. Intervertebral disc height loss to a moderate degree at C6-7, where there is the greatest degree of degenerative change with a disc osteophyte complex. Mild posterior spondylitic spurring. Evaluation of the soft tissues of the spinal does not demonstrate further effacement. Degenerative changes at the at lantodental articulation. Mild facet arthropathy and uncovertebral hypertrophy result in varying degrees of osseous neural foraminal narrowing. No acute fracture or subluxation. Visualized portion of the skull base intact. Paraspinal soft tissues within normal limits. IMPRESSION: 1. No acute osseous injury of the cervical spine. 2. Multilevel degenerative changes. ACT 112: Negative or not required by law. Electronically signed by: Ghulam Santoyo M.D. 08/14/2019 11:11 AM XR abdomen min 2V CLINICAL HISTORY: 78 years-old Female presenting with ? sbo already shot ccxr. TECHNIQUE: Single supine view of the abdomen was obtained. COMPARISON: CT from 07/23/2019 and chest x-ray performed earlier today.. FINDINGS: Mild stool burden throughout normal caliber colon. Nonobstructive bowel gas pattern. No gross pneumoperitoneum. Allowing for bowel gas and stool, no calcifications to suggest nephrolithiasis. Few pelvic phleboliths. Atherosclerotic calcification. Degenerative changes of the spine. Mild levocurvature of the lumbar spine. Lung bases clear. IMPRESSION: 1. No acute intra-abdominal pathology. ACT 112: Negative or not required by law. Electronically signed by: Ghulam Santoyo M.D. 08/14/2019 12:15 PM Code Status & VTE Plan Code Status Per discussion with the patient, she desires to be a full resuscitation. VTE Prophylaxis Plan VTE Prophylaxis will be ordered: Yes Critical Care Time Critical Care Time: No Prolonged Care Time Prolonged Care Time: No Critical Care Time Critical Care Time: No Supervising Physician Co-Signing Physician Notes Attending addendum: Patient seen and examined, care coordinated with Porfirio de santiago PA-C This is a 78-year-old female with past medical history of Parkinson's disease coronary artery disease, hypertension dyslipidemia Presented to ER with complaint of weakness/syncope, Had symptoms of nausea, poor p.o. intake for past several days, no abdominal pain no diarrhea,no blood in stool Does not have any complaint of shortness of breath/chest pressure, cough no dyspnea on exertion Physical examination: Brief/focus General: Elderly female/pleasant, no apparent distress HEENT: Sclera anicteric, pupils equal reactive to light Lungs: Clear to auscultate Heart: Regular S1-S2 Abdomen: Soft nontender Neuro: No focal deficit Assessment and plan: Syncope: Possible secondary to dehydration/poor p.o. intake, patient reports of feeling dizzy and lightheaded while standing up Ordered for IV fluids, check orthostatic vitals Fall precaution Monitor in medical telemetry Mild elevation of troponin Patient denies of any complaint of shortness of breath, chest discomfort or chest pressure Remote history of coronary artery disease Ordered for serial cardiac markers to be checked Resting echo ordered watch supervisor History of Parkinson's disease: Gait disturbance, patient reports of falling in multiple incidences in the last several months Order for PT OT evaluation Continue Sinemet CODE STATUS: Full code DVT prophylaxis: Subcu heparin Please refer to further documentation by Porfirio de santiago PA-C for discussion of other chronic issues Hedy Salinas MD (1) Syncope Syncope type: unspecified Qualified Code(s): R55 - Syncope and collapse
--- NOTE | 2019-08-14 14:23 | XRay Report ---
XR foot RT min 3V routine CLINICAL HISTORY: 78 years-old Female presenting with r mid foot pain, fall a few days ago with bruis ing over the toes. TECHNIQUE: Frontal, oblique, and lateral views of the right foot were obtained. COMPARISON: None. FINDINGS: Severe osteopenia. This limits evaluation for nondisplaced fracture. An avulsion fracture fragment ve rsus osteophytosis may be present at the inferior pole of the medial malleolus. No other convincing e vidence of fracture. Enthesophyte at the origin of the plantar fascia atherosclerosis. IMPRESSION: Possible avulsion fracture fragments versus osteophytosis at the inferomedial malleolus. If this were to represent a fracture, this is age indeterminate and could be chronic. No evidence of fracture wit hin the foot allowing for the severity of osteopenia. ACT 112: Negative or not required by law. Electronically signed by: Ghulam Santoyo M.D. 08/14/2019 2:22 PM
--- NOTE | 2019-08-14 14:32 | Ultrasound Report ---
US venous doppler LE CLINICAL HISTORY: 78 years-old Female presenting with leg swelling and pain. TECHNIQUE: Real-time grayscale and color and spectral Doppler ultrasound imaging of the veins of the bilateral lower extremities was performed. Compression and augmentation were also utilized. COMPARISON: 03/22/2013. FINDINGS: RIGHT: Common femoral vein: Patent. Greater saphenous vein (superficial): Patent. Deep femoral vein: Patent. Femoral vein: Patent. Popliteal vein: Patent. Calf veins: Patent. LEFT: Common femoral vein: Patent. Greater saphenous vein (superficial): Patent. Deep femoral vein: Patent. Femoral vein: Patent. Popliteal vein: Patent. Calf veins: Patent. Other: None. IMPRESSION: No evidence of deep venous thrombosis. ACT 112: Negative or not required by law. Electronically signed by: Ghulam Santoyo M.D. 08/14/2019 2:31 PM
[2019-08-14] MEDS ORDERED: NITROGLYCERIN SL 0.4 MG/TAB TAB SL PRN (14:47)
[2019-08-14] MEDS ORDERED: ALUMINUM/MAGNESIUM SUSP 30 ML UDC PO PRN (14:47)
[2019-08-14] MEDS ORDERED: SODIUM CHLORIDE 0.9% 1000ML 1,000 ML IV SCH (14:47)
[2019-08-14] MEDS ORDERED: MAGNESIUM HYDROXIDE SUSP 30 ML UDC PO PRN (14:47)
[2019-08-14] MEDS ORDERED: ONDANSETRON INJ 2 MG/ML 2 ML VIAL IV PRN (14:47)
[2019-08-14] MEDS ORDERED: POLYETHYLENE (MIRALAX) 17 GM PACK PO PRN (14:47)
[2019-08-14] MEDS ORDERED: PATIENT'S HEIGHT AND/OR WEIGHT NEEDED SCH (15:15)
[2019-08-14] MEDS ORDERED: HydrALAZINE HCL 20 MG/ML VIAL IV PRN (15:26)
[2019-08-14] MEDS: ACETAMINOPHEN 325 MG TAB PO PRN (15:55)
[2019-08-14 17:34] LABS: Creatine Kinase MB 3.5 ng/ml (0.5-3.6); Troponin I 0.128 ng/ml (0-0.045)
[2019-08-14] MEDS ORDERED: CYCLOBENZAPRINE HCL 10 MG TAB PO PRN (19:05)
--- NOTE | 2019-08-14 19:16 | Hospitalist Progress Note ---
Date of Service August 14, 2019 Assessment & Plan Admission and Anticipated Discharge Date Admission Date: August 14, 2019 Anticipated date of discharge: 08/16/19 Subjective ATTENDING NOTE : mild troponin bump noted : 0.08-> 0.28 admitted with syncope /nausea D dimer was elevated lower ext Doppler negative for DVT /will check CTA angiogram of chest for PE had Hypertensive urgency on admission SBP > 180 ( pt did not take any of her AM BP meds ) Home antihypertensives : Toprol XL 37.5 and Lisinopril 5 mg X1 dose given in ER improvement of BP noted pt remains asymptomatic : no hypoxia , tachycardia no complain of chest pain or SOB pt has multiple risk factors for ACS ( acute coronary syndrome ) hx of significant CAD with multiple PTCA in past last cardiac cath in 2014 in [place] had FABIOLA stent placed on RCA HTN/Hyperlipidemia /Type 2 DM 3rd set t Troponin ordered for 2300 ordered 4th troponin at 5 am Cardiology eval requested NPO past midnight till cardiac eval in am ECHO on 05/2019 : normal LV function with diastolic dysfunction .no wall motion abnormality repeat TTE ordered night time concrete precast [facility] Hospitalist updated Hedy Salinas MD Results & Data Results & Data ([facility]) Vital Signs (Past 12 Hours) Vital Signs Temp Pulse Pulse Resp BP BP BP 08/14/19 19:09 36.8 C 67 16 126/66 08/14/19 16:56 158/70 H 08/14/19 15:10 36.7 C 63 20 181/77 H 08/14/19 15:00 58 L 08/14/19 14:47 36.6 C 58 L 16 178/83 H 08/14/19 14:01 71 18 181/89 H 08/14/19 12:47 65 17 152/100 H 08/14/19 12:39 62 18 197/98 H 08/14/19 11:19 72 18 190/97 H 08/14/19 10:02 36.5 C 71 18 167/84 H Pulse Ox 08/14/19 19:09 97 08/14/19 16:56 08/14/19 15:10 97 08/14/19 15:00 08/14/19 14:47 98 08/14/19 14:01 97 08/14/19 12:47 97 08/14/19 12:39 98 08/14/19 11:19 100 08/14/19 10:02 99
[2019-08-14] MEDS ORDERED: DEXTROSE 50% 50 ML SYRINGE IV PRN (19:26)
[2019-08-14] MEDS ORDERED: GLUCOSE 10 TABS/TUBE PO PRN (19:26)
[2019-08-14] MEDS ORDERED: CARBOHYDRATES FOR HYPOGLYCEMIA PO PRN (19:26)
[2019-08-14] MEDS ORDERED: GLUCAGON FOR INJ 1 MG VIAL SQ PRN (19:26)
[2019-08-14] MEDS ORDERED: GLUCOSE 40% GEL 15 GM TUBE PO PRN (19:26)
[2019-08-14] MEDS ORDERED: OPTIRAY 320 125ml IV PRN (19:52)
--- NOTE | 2019-08-14 20:05 | CT Scan Report ---
CT angio chest PE protocol CLINICAL HISTORY: 78 years-old Female presenting with atypical chest pain, weakness. TECHNIQUE: Multidetector CT angiography of the chest was performed after administration of intravenou s contrast. 3-D volumetric and/or maximum intensity projection (MIP) images were subsequently reconst ructed for review. IV contrast: 119 mL of Optiray 320. One or more dose lowering techniques were used consistent with the principles of ALARA (as low as reasonably achievable), including automatic expos ure control, mA or kV adjustment to individual patient size, and/or use of iterative reconstruction. COMPARISON: Chest x-ray performed earlier today and CTA chest from 03/22/2013. CT DOSE (mGy.cm): The estimated cumulative dose is 259.67 mGy.cm. FINDINGS: Desk Attendant topogram: Unremarkable. Pulmonary vasculature: The study is suboptimal for the assessment of the pulmonary vascular tree secondary to respiratory mo tion artifact. This mildly degrades evaluation of the lung bases. No filling defect within the pulmon meena arteries to suggest embolus. Main pulmonary artery enlarged measuring 3.3 cm in diameter. No flat tening of the interventricular septum. No intracardiac filling defect. No reflux of contrast into the hepatic veins. Remaining chest: Soft tissues: Normal thyroid and thoracic inlet. No axillary, supraclavicular, mediastinal, or hilar lymphadenopathy. Few small right infrahilar lymph nodes along the bronchovascular bundle. Atheroscler osis of the aorta. Multichamber enlargement of the heart. Coronary artery and aortic valve calcificat ion. No pericardial or pleural effusion. Small sliding-type hiatal hernia. Lungs and airways: No pneumothorax. Central airways patent. Pulmonary arteries enlarged relative to a djacent bronchi. No interlobular septal thickening. Mosaic attenuation mostly in the lung bases may b e due to the phase of respiration. Minimal dependent changes likely atelectasis. No other focal nodul e or infiltrate. Musculoskeletal: Degenerative changes of the spine. Subacute to chronic fracture of the anterior righ t sixth rib at the costochondral articulation. No acute osseous injury. IMPRESSION: 1. No evidence of pulmonary embolus. 2. Findings suggest pulmonary artery hypertension. 3. No focal infiltrate to suggest pneumonia. 4. Right infrahilar lymph nodes suspected along the bronchovascular bundle. Less likely this could r epresent parenchymal lung nodules. 5. Subacute anterior right sixth rib fracture. ACT 112: Negative or not required by law. Electronically signed by: Ghulam Santoyo M.D. 08/14/2019 8:04 PM
[2019-08-14] MEDS: INSULIN ASPART 100 UNITS/ML 3 ML PEN SC SCH (21:22)
[2019-08-14] MEDS: CARBIDOPA/LEVODOPA 25/100MG TAB PO SCH ×2 (21:25→21:31)
[2019-08-14] MEDS: CLOPIDOGREL BISULFATE 75 MG TAB PO SCH (21:25)
[2019-08-14] MEDS: HEPARIN SOD 5,000 UNIT/0.5 ML VIAL SQ SCH (21:26)
[2019-08-14] MEDS: CARBIDOPA/LEVODOPA 50/200MG EXT REL TAB PO SCH (21:26)
[2019-08-14] MEDS: NYSTATIN SUSP 500,000 U/5 ML UDC PO SCH ×3 (21:26→21:30)
[2019-08-14] MEDS: LEVOTHYROXINE SODIUM 125 MCG TABLET PO SCH (21:26)
[2019-08-14 23:02] LABS: Creatine Kinase MB 2.8 ng/ml (0.5-3.6); Troponin I 0.16 ng/ml (0-0.045)
[2019-08-15] MEDS: HEPARIN SOD 5,000 UNIT/0.5 ML VIAL SQ SCH ×3 (04:48→20:51)
[2019-08-15] MEDS: LEVOTHYROXINE SODIUM 125 MCG TABLET PO SCH (05:59)
[2019-08-15 07:00] LABS: Hematocrit (blood only) 37.2 % (37-47); Hemoglobin 12.3 g/dL (12.0-16.0); Mean Corpuscular Hemoglobin 28.9 pg (25-34); Mean Corpuscular Hgb Conc 33.1 g/dL (32-36); Mean Corpuscular Volume 87.5 fL (80-100); Mean Platelet Volume 9.5 fL (7.4-10.4); Platelet Count 234 K/uL (130-400); RDW Standard Deviation 51.3 fL (36.4-46.3); Red Blood Count 4.25 M/uL (4.2-5.4); White Blood Count 6.16 K/uL (4.8-10.8)
[2019-08-15 07:33] LABS: BUN Creatinine Ratio 15.3 (10-20); Calcium 8.8 mg/dl (8.5-10.1); Creatinine Clr Calc Pharmacy 46.2 ml/min; Est GFR (African American) 78.3; Est GFR (Non-African American) 67.6; Potassium 3.9 mmol/L (3.5-5.1)
[2019-08-15 07:42] LABS: Troponin I 0.142 ng/ml (0-0.045)
[2019-08-15] MEDS: NYSTATIN SUSP 500,000 U/5 ML UDC PO SCH ×4 (08:17→20:57)
[2019-08-15] MEDS: METOPROLOL SUCC 25MG EXT REL TAB PO SCH (08:17)
[2019-08-15] MEDS: ATORVASTATIN 40 MG TAB PO SCH (08:17)
[2019-08-15] MEDS: SERTRALINE HCL 50 MG TABLET PO SCH (08:18)
[2019-08-15] MEDS: PANTOprazole 40 MG TAB PO SCH (08:18)
[2019-08-15] MEDS: CARBIDOPA/LEVODOPA 25/100MG TAB PO SCH ×3 (08:18→20:55)
[2019-08-15] MEDS: CLOPIDOGREL BISULFATE 75 MG TAB PO SCH (08:18)
[2019-08-15] MEDS: CEROVITE ADV FORMULA TAB PO SCH (08:18)
[2019-08-15] MEDS: lisinopriL 5 MG TAB PO SCH (08:18)
[2019-08-15] MEDS: MULTIVITAMIN TAB PO SCH (08:18)
[2019-08-15] MEDS: INSULIN ASPART 100 UNITS/ML 3 ML PEN SC SCH ×4 (08:19→20:49)
[2019-08-15] MEDS ORDERED: ASPIRIN 81 MG ECTAB PO SCH (09:00)
--- NOTE | 2019-08-15 10:01 | Electrocardiogram Report ---
Test Reason : Blood Pressure : / mmHG Vent. Rate : 065 BPM Atrial Rate : 065 BPM P-R Int : 190 ms QRS Dur : 084 ms QT Int : 438 ms P-R-T Axes : -05 -30 -16 degrees QTc Int : 455 ms Normal sinus rhythm Left axis deviation Minimal voltage criteria for LVH, may be normal variant Nonspecific ST and T wave abnormality Abnormal ECG When compared with ECG of 23-JUL-2019 11:53, No significant change was found Confirmed by Kalyan Flannery ([id number]) on 08/15/2019 10:01:19 AM Referred By: REFERRED SELF Confirmed By:Kalyan Flannery
--- NOTE | 2019-08-15 10:09 | Electrocardiogram Report ---
Test Reason : Blood Pressure : / mmHG Vent. Rate : 066 BPM Atrial Rate : 066 BPM P-R Int : 138 ms QRS Dur : 080 ms QT Int : 468 ms P-R-T Axes : 086 -17 -31 degrees QTc Int : 490 ms Poor data quality, interpretation may be adversely affected Normal sinus rhythm Voltage criteria for left ventricular hypertrophy Poor R wave progression, consider anterior MD vs. lead placement vs. LVH Nonspecific T wave abnormality Abnormal ECG When compared with ECG of 14-AUG-2019 10:27, (unconfirmed) Nonspecific T wave abnormality, worse in Anterolateral leads Confirmed by Kalyan Flannery ([id number]) on 08/15/2019 10:08:43 AM Referred By: REFERRED SELF Confirmed By:Kalyan Flannery
[2019-08-15] MEDS ORDERED: SODIUM CHLORIDE 0.9% 1000ML 250 ML IV ONE (11:31)
--- NOTE | 2019-08-15 12:09 | Hospitalist Progress Note ---
Date of Service August 15, 2019 Assessment & Plan (1) Orthostatic hypotension: possibly due to dehydration orthostatic BP check shows significant drop of BP : Lying 161/84/Sitting : 91/57/ standing 71/42 -pt was symptomatic -felt dizzy and lightheaded while standing ordered for NSS 250 ml IV bolus , repeat orthostatic vitals no arrhythmia noted in tele UTI : possible cause of dehydration : UTI -urine culture : gram negative bacilli , on IV rocephin Syncope : possible due to above , dehydration causing orthostatic hypotension -leading to sympotm pt admitted with syncope , no recurrence of symptom since admission no evidence of ACS serial cardiac markers had minimal elevation later plateaued\ CTA of chest negative for PE ECHO : shows no wall motion abnormality , normal EF with diastolic dysfunction HTN : noted to be hypotensive on standing hold AUTUMN ( hx of CHF with diastolic dysfunction HFpEF -presents with dehydration ) cont beta paul with holding parameters (2) CAD (coronary artery disease): CAD (coronary artery disease) with multiple PTCA procedure Status post August 2007 PCI of both the RCA and LCX with FABIOLA Status post April 2008 PCI of the mid RCA with 2 FABIOLA Status post May 2008 PCI of the proximal LAD Status post March 2013 PCI of the RCA with a FABIOLA cont on ASA /Plavix Beta paul no angina symptom ECHO no wall motion abnormality TYPE 2 DM : insulin SSI Admission and Anticipated Discharge Date Admission Date: August 14, 2019 Anticipated date of discharge: 08/16/19 Subjective pt sitting on chair , has been OOB /walked in room , no complain of chest pain or PHILLIPS no cough , no fever or chills feeling fine Review of Systems Review of Systems: All systems reviewed & are unremarkable except as noted in HPI & below Respiratory: no cough, no dyspnea, no dyspnea on exertion and no wheezing Cardiovascular: no chest pain, no dyspnea, no orthopnea, no palpitations, no lightheadedness, no syncope and no edema Gastrointestinal: no abdominal pain, no nausea and no vomiting Genitourinary: + urinary frequency and + urinary urgency; no dysuria Physical Exam Constitutional: WD/WN, vitals as above no acute distress Eyes: PERRL, conjunctivae normal, anicteric sclerae ENMT: external ear and nose normal, oropharynx normal Neck: trachea midline, no thyromegaly Respiratory: normal respiratory effort, lungs clear to auscultation Cardiovascular: RRR, no murmur, no edema Gastrointestinal (Abdomen): Inspection/Auscultation: normal bowel sounds Percussion/Palpation: abdomen soft; abdomen nontender Musculoskeletal: no cyanosis or clubbing, extremities motor strength 5/5 Skin: no rashes, warm and dry Neurologic: PERRL, EOMI, accommodation nl, no face palsy, no dysarthria Psychiatric: A+Ox3, euthymic affect Results & Data Results & Data ([facility]) Vital Signs (Past 12 Hours) Vital Signs Temp Pulse Pulse Resp BP Pulse Ox 08/15/19 11:31 36.3 C L 66 18 91/57 L 96 08/15/19 07:36 37.2 C 76 18 161/84 H 93 08/15/19 07:13 74 08/15/19 06:24 62 08/15/19 03:49 36.8 C 69 16 155/74 H 94
[2019-08-15] MEDS: SODIUM CHLORIDE 0.9% 1000ML 1,000 ML IV SCH (12:31)
[2019-08-15] MEDS ORDERED: cefTRIAXone SODIUM 2,000 MG in DEXTROSE 5% 50 ML IV SCH (14:00)
--- NOTE | 2019-08-15 14:19 | Cardiology Consultation ---
Date of Consultation August 15, 2019 Assessment & Plan (1) Syncope: Per the patient's description this does not appear to be a syncopal event rather a traumatic fall. I do believe that orthostatic hypotension is played a significant role in this but I do not believe this represents an arrhythmogenic event. She will be continued to be monitored on telemetry overnight (2) Orthostatic hypotension: Significantly orthostatic on examination. We will give 1 L of normal saline at this time and follow her volume status clinically. I agree with holding her antihypertensives until BP stabilizes (3) Elevated troponin: Chronically elevated I do not see any signs of active ischemia at this time. Echocardiogram with no new wall motion abnormalities Patient asymptomatic. No further cardiac testing or intervention is necessary at this time (4) CAD (coronary artery disease): Aspirin and Plavix to be held as per neurosurgery's recommendations At this point given the age of her stents I do not see any benefit to restarting her Plavix. However, her aspirin should be restarted once feasible given her history of multiple PCI's (5) Subdural hematoma, post-traumatic: Aspirin and Plavix to be held. Patient was scheduled to see neurology on 08/16/2019 for clearance to resume antiplatelets Would consider inpatient neurology evaluation. History of Present Illness Reason for Consultation: elevated troponin Requesting Physician: Dr. Salinas Attending Physician: Hedy Salinas MD History of Present Illness It was my pleasure to see Mrs. Serrano in consultation today August 15, 2019. She is a very pleasant 78-year-old woman who presented to [facility] on 08/14/2019 after a fall at home. The patient has been at home recovering from recent hernia repair as well as recent subdural/subarachnoid hemorrhage status post fall with head trauma. She states that on the day of presentation she arose from a seated position started feeling a little foggy but then started walking and had a mechanical fall that was witnessed by her . She states that she did not lose conscious this time. She denies experiencing any chest pain, shortness of breath, palpitations, dizziness or syncope. She has been rather nauseated lately and has not been eating or drinking much. Upon presentation to the emergency department she was found to be significantly hypertensive and she came back positive for urinary tract infection. Overnight she was found to be significantly orthostatic and her lisinopril has been on hold. Currently she states that she feels well at rest Her most recent presentation to [facility] was on July 22 when she had another fall. This episode occurred when the patient arose from being seated on the toilet and subsequently fell forward hitting her head on the sink. She was transferred from [facility] to [facility] for head trauma and she was found to have a small subdural hematoma as well as a small arachnoid hemorrhage. Her aspirin and Plavix were held at that time until cleared to resume by neurosurgery. Cardiac problem list as per Dr. Ulloa's most recent outpatient note: Cardiac Problem List: 1. ASCVD 1. Status postApril 2007 PCI of both the RCA and LCX with FABIOLA 2. Status postDecember 2007 PCI of the mid RCA with 2 FABIOLA 3. Status postJanuary 2008 PCI of the proximal LAD 4. Status postNovember 2012 PCI of the RCA with a FABIOLA 2. Hypertension 3. Dyslipidemia Allergies Allergy/AdvReac Type Severity Reaction Status Date / Time celecoxib AdvReac Intermediate GI SYMPTOMS Verified 07/23/19 12:22 hydrocodone AdvReac Unknown STOMACH Verified 07/23/19 12:22 IRRITATION Home Medications Home Medications Medication Instructions Recorded Confirmed Type atorvastatin 40 mg PO QAM 06/25/19 08/14/19 History carbidopa-levodopa 1 tab PO PM 06/25/19 08/14/19 History clopidogrel 75 mg PO QAM 06/25/19 08/14/19 History levothyroxine 125 mcg PO QAM 06/25/19 08/14/19 History lisinopril 5 mg PO QAM 06/25/19 08/14/19 History metoprolol succinate 37.5 mg PO QAM 06/25/19 08/14/19 History pantoprazole 40 mg PO QAM 06/25/19 08/14/19 History aspirin 81 mg PO DAILY 07/13/19 08/14/19 History carbidopa-levodopa 1.5 tab PO TID 07/13/19 08/14/19 History multivitamin 1 cap PO DAILY 07/13/19 08/14/19 History rasagiline 1 mg PO DAILY 07/13/19 08/14/19 History sertraline 50 mg PO DAILY 07/13/19 08/14/19 History vitamins A,C,A-vgwz-tkgnbh 0 tab PO DAILY 07/23/19 08/14/19 History [PreserVision AREDS] fluconazole 200 mg PO DAILY 08/14/19 08/14/19 History ranitidine HCl 150 mg PO DAILY 08/14/19 08/14/19 History Patient History Medical History Anxiety CAD (coronary artery disease) Status post August 2007 PCI of both the RCA and LCX with FABIOLA Status post April 2008 PCI of the mid RCA with 2 FABIOLA Status post May 2008 PCI of the proximal LAD Status post March 2013 PCI of the RCA with a FABIOLA GERD (gastroesophageal reflux disease) Hyperlipidemia Hypertension (Acute) Hypothyroidism Parkinson disease Prediabetes Per records Surgical History History of ankle surgery LEFT History of arthroplasty of right knee x 2 per records History of cardiac cath 08/2007, 04/2008, 2008, 2012 History of cholecystectomy Per records History of colonoscopy History of herniorrhaphy Per records History of hysterectomy History of thumb surgery Per records- right thumb Hx of angioplasty [place] Family History Mother Diabetes Social History Preferred Language: Malay Communication Ability: Effective 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 No acute distress. HEENT: Normocephalic, atraumatic. Pupils equal, round and reactive to light and accommodation. Extraocular muscles are intact. Anicteric sclera. Moist mucous membranes. Neck: No JVD. No bruit. Cardiovascular: Regular. Positive S-4. Normal S-1 and S-2. No S-3. 3/6 mid to late systolic ejection murmur, greatest at the right sternal border, second intercostal space with radiation to the bilateral carotids. No rubs. Pulmonary: Clear to auscultation bilaterally. No rales, rhonchi, or wheezing. Abdomen: Bowel sounds x 4, soft. No rebound, guarding or tenderness. No organomegaly. Extremities: No clubbing, cyanosis or edema. +2 pedal pulses bilaterally. Skin: Warm and dry. Results & Data ([facility]) Vital Signs (Past 12 Hours) Vital Signs Temp Pulse Pulse Resp BP Pulse Ox 08/15/19 11:31 36.3 C L 66 18 91/57 L 96 08/15/19 07:36 37.2 C 76 18 161/84 H 93 08/15/19 07:13 74 08/15/19 06:24 62 08/15/19 03:49 36.8 C 69 16 155/74 H 94 (1) Syncope Syncope type: unspecified Qualified Code(s): R55 - Syncope and collapse
[2019-08-15] MEDS: CARBIDOPA/LEVODOPA 50/200MG EXT REL TAB PO SCH (20:55)
[2019-08-16] MEDS: SODIUM CHLORIDE 0.9% 1000ML 1,000 ML IV SCH ×2 (01:00→13:32)
[2019-08-16] MEDS: LEVOTHYROXINE SODIUM 125 MCG TABLET PO SCH (05:58)
[2019-08-16] MEDS: HEPARIN SOD 5,000 UNIT/0.5 ML VIAL SQ SCH ×3 (05:58→20:43)
[2019-08-16] MEDS: NYSTATIN SUSP 500,000 U/5 ML UDC PO SCH ×4 (07:59→20:43)
[2019-08-16] MEDS: MULTIVITAMIN TAB PO SCH (08:00)
[2019-08-16] MEDS: METOPROLOL SUCC 25MG EXT REL TAB PO SCH (08:00)
[2019-08-16] MEDS: PANTOprazole 40 MG TAB PO SCH (08:00)
[2019-08-16] MEDS: CEROVITE ADV FORMULA TAB PO SCH (08:00)
[2019-08-16] MEDS: SERTRALINE HCL 50 MG TABLET PO SCH (08:01)
[2019-08-16] MEDS: ATORVASTATIN 40 MG TAB PO SCH (08:01)
[2019-08-16] MEDS: CARBIDOPA/LEVODOPA 25/100MG TAB PO SCH ×3 (08:01→20:41)
[2019-08-16] MEDS: INSULIN ASPART 100 UNITS/ML 3 ML PEN SC SCH ×4 (09:43→20:46)
[2019-08-16] MEDS: cephALEXin 500 MG CAP PO SCH ×2 (10:34→20:42)
--- NOTE | 2019-08-16 13:59 | Cardiology Progress Note ---
Date of Service August 16, 2019 Assessment & Plan (1) Syncope: Per the patient's description this does not appear to be a syncopal event rather a traumatic fall. I do believe that orthostatic hypotension is played a significant role in this but I do not believe this represents an arrhythmogenic event. No arrhythmias on telemetry monitoring. No further cardiac testing or intervention is necessary at this time. Okay to DC telemetry or to home from a cardiac standpoint. (2) Orthostatic hypotension: Improved with IV fluids. We will restart outpatient antihypertensives and discontinue fluids now (3) Elevated troponin: Chronically elevated I do not see any signs of active ischemia at this time. Echocardiogram with no new wall motion abnormalities Patient asymptomatic. No further cardiac testing or intervention is necessary at this time (4) CAD (coronary artery disease): Aspirin and Plavix to be held as per neurosurgery's recommendations At this point given the age of her stents I do not see any benefit to restarting her Plavix. However, her aspirin should be restarted once feasible given her history of multiple PCI's (5) Subdural hematoma, post-traumatic: Aspirin and Plavix to be held. Patient was scheduled to see neurology on 08/16/2019 for clearance to resume antiplatelets Would consider inpatient neurology evaluation. Subjective Patient seen and examined out of bed in chair. States that she feels well in the orthostatic lightheadedness is improving. Overall strength improving as well and denies any chest pain, shortness of breath, palpitations, dizziness or syncope. Telemetry reviewed: Normal sinus rhythm without arrhythmia or significant ectopy . Review of Systems Review of Systems: All systems reviewed & are unremarkable except as noted in HPI & below Physical Exam Physical Exam: General: Awake, alert and oriented x 3. No acute distress. HEENT: Normocephalic, atraumatic. Pupils equal, round and reactive to light and accommodation. Extraocular muscles are intact. Anicteric sclera. Moist mucous membranes. Neck: No JVD. No bruit. Cardiovascular: Regular. Positive S-4. Normal S-1 and S-2. No S-3. No murmurs or rubs. Pulmonary: Clear to auscultation B/L. No rales, rhonchi or wheezing Abdomen: Bowel sounds x 4, soft. No rebound, guarding or tenderness. No organomegaly. Extremities: No clubbing, cyanosis or edema. +2 pedal pulses bilaterally. Skin: Warm and dry. Results & Data Vital Signs (Past 12 Hours) Vital Signs Temp Pulse Resp BP Pulse Ox 08/16/19 10:43 36.4 C L 61 16 154/73 H 97 08/16/19 07:07 36.5 C 75 19 167/73 H 95 08/16/19 04:38 36.7 C 70 18 149/72 H 96 (1) Syncope Syncope type: unspecified Qualified Code(s): R55 - Syncope and collapse
[2019-08-16] MEDS: ACETAMINOPHEN 325 MG TAB PO PRN (16:12)
--- NOTE | 2019-08-16 16:53 | Hospitalist Progress Note ---
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;s diseae ordered for Midodrine bilateral daniel stocking UTI : possible cause of dehydration : UTI -urine culture : Kelbsiella changed to PO ABx Keflex Syncope : , no recurrence of symptom since admission no evidence of ACS serial cardiac markers had minimal elevation later plateaued\ CTA of chest negative for PE ECHO : shows no wall motion abnormality , normal EF with diastolic dysfunction HTN : home antihypertensives resumed (2) CAD (coronary artery disease): CAD (coronary artery disease) with multiple PTCA procedure Status post August 2007 PCI of both the RCA and LCX with FABIOLA Status post April 2008 PCI of the mid RCA with 2 FABIOLA Status post May 2008 PCI of the proximal LAD Status post March 2013 PCI of the RCA with a FABIOLA cont on ASA /Plavix Beta paul no angina symptom ECHO no wall motion abnormality TYPE 2 DM : insulin SSI DISPOSITION : appreciate input from PT/OT recommends rehab pt is willing for referral to [facility] Admission and Anticipated Discharge Date Admission Date: August 14, 2019 Anticipated date of discharge: 08/16/19 Subjective pt reports of no complain no syncope or lightheadeness no arrythmia still having significant drop in BP while standing Physical Exam Constitutional: WD/WN, vitals as above no acute distress Eyes: PERRL, conjunctivae normal, anicteric sclerae ENMT: external ear and nose normal, oropharynx normal Neck: trachea midline, no thyromegaly Respiratory: normal respiratory effort, lungs clear to auscultation Cardiovascular: RRR, no murmur, no edema Gastrointestinal (Abdomen): Inspection/Auscultation: normal bowel sounds Percussion/Palpation: abdomen soft; abdomen nontender Musculoskeletal: no cyanosis or clubbing, extremities motor strength 5/5 Skin: no rashes, warm and dry Neurologic: PERRL, EOMI, accommodation nl, no face palsy, no dysarthria Psychiatric: A+Ox3, euthymic affect Results & Data Results & Data ([facility]) Vital Signs (Past 12 Hours) Vital Signs Temp Pulse Resp BP BP Pulse Ox 08/16/19 15:34 36.5 C 60 18 136/73 95 08/16/19 10:43 36.4 C L 61 16 154/73 H 97 08/16/19 07:07 36.5 C 75 19 167/73 H 95
[2019-08-16] MEDS: MIDODRINE HCL 2.5 MG TAB PO SCH (18:15)
[2019-08-16] MEDS: CARBIDOPA/LEVODOPA 50/200MG EXT REL TAB PO SCH (20:42)
[2019-08-17] MEDS: HEPARIN SOD 5,000 UNIT/0.5 ML VIAL SQ SCH ×3 (05:27→20:48)
[2019-08-17] MEDS: LEVOTHYROXINE SODIUM 125 MCG TABLET PO SCH (06:24)
[2019-08-17] MEDS: cephALEXin 500 MG CAP PO SCH ×2 (08:10→20:50)
[2019-08-17] MEDS: MIDODRINE HCL 2.5 MG TAB PO SCH ×2 (08:10→11:59)
[2019-08-17] MEDS: CARBIDOPA/LEVODOPA 25/100MG TAB PO SCH ×3 (08:11→20:50)
[2019-08-17] MEDS: PANTOprazole 40 MG TAB PO SCH (08:11)
[2019-08-17] MEDS: MULTIVITAMIN TAB PO SCH (08:11)
[2019-08-17] MEDS: CEROVITE ADV FORMULA TAB PO SCH (08:11)
[2019-08-17] MEDS: ATORVASTATIN 40 MG TAB PO SCH (08:11)
[2019-08-17] MEDS: NYSTATIN SUSP 500,000 U/5 ML UDC PO SCH ×4 (08:11→20:50)
[2019-08-17] MEDS: METOPROLOL SUCC 25MG EXT REL TAB PO SCH (08:12)
[2019-08-17] MEDS: SERTRALINE HCL 50 MG TABLET PO SCH (08:12)
[2019-08-17] MEDS: lisinopriL 5 MG TAB PO SCH (08:12)
[2019-08-17] MEDS: INSULIN ASPART 100 UNITS/ML 3 ML PEN SC SCH ×4 (09:40→20:49)
[2019-08-17] MEDS ORDERED: lisinopriL 20 MG TAB PO STA (13:39)
--- NOTE | 2019-08-17 15:58 | Cardiology Progress Note ---
Date of Service August 17, 2019 Assessment & Plan (1) Syncope: Per the patient's description this does not appear to be a syncopal event rather a traumatic fall. I do believe that orthostatic hypotension is played a significant role in this but I do not believe this represents an arrhythmogenic event. No arrhythmias on telemetry monitoring. No further cardiac testing or intervention is necessary at this time. Okay to DC telemetry or to home from a cardiac standpoint. (2) Orthostatic hypotension: Improved with IV fluids. Precautions reviewed in order to avoid further episodes in the future including: Adequate hydration, [place] salt intake as well as compression stockings Midodrine was started last p.m., however, patient is now significantly hypertensive and it will be discontinued (3) Elevated troponin: Chronically elevated I do not see any signs of active ischemia at this time. Echocardiogram with no new wall motion abnormalities Patient asymptomatic. No further cardiac testing or intervention is necessary at this time (4) CAD (coronary artery disease): Aspirin and Plavix to be held as per neurosurgery's recommendations At this point given the age of her stents I do not see any benefit to restarting her Plavix. However, her aspirin should be restarted once feasible given her history of multiple PCI's (5) Subdural hematoma, post-traumatic: Aspirin and Plavix to be held. Patient was scheduled to see neurology on 08/16/2019 for clearance to resume antiplatelets Would consider inpatient neurology evaluation. Subjective , Only slight lightheadedness upon standing. Patient seen and examined out of bed in chair. States that she feels well in the orthostatic lightheadedness is improving, only slight lightheadedness with standing. Overall strength improving as well and denies any chest pain, shortness of breath, palpitations, dizziness or syncope. Telemetry reviewed: Normal sinus rhythm without arrhythmia or significant ectopy. Review of Systems Review of Systems: All systems reviewed & are unremarkable except as noted in HPI & below Physical Exam Physical Exam: General: Awake, alert and oriented x 3. No acute distress. HEENT: Normocephalic, atraumatic. Pupils equal, round and reactive to light and accommodation. Extraocular muscles are intact. Anicteric sclera. Moist mucous membranes. Neck: No JVD. No bruit. Cardiovascular: Regular. Positive S-4. Normal S-1 and S-2. No S-3. No murmurs or rubs. Pulmonary: Clear to auscultation B/L. No rales, rhonchi or wheezing Abdomen: Bowel sounds x 4, soft. No rebound, guarding or tenderness. No organomegaly. Extremities: No clubbing, cyanosis or edema. +2 pedal pulses bilaterally. Skin: Warm and dry. Results & Data Vital Signs (Past 12 Hours) Vital Signs Temp Pulse Pulse Resp BP BP Pulse Ox 08/17/19 15:31 63 08/17/19 15:05 36.2 C L 66 18 172/74 H 98 08/17/19 14:26 36.3 C L 65 20 178/81 H 95 08/17/19 11:54 54 L 08/17/19 11:51 36.5 C 66 18 185/83 H 97 08/17/19 08:00 36.6 C 63 18 175/78 H 96 08/17/19 03:57 36.6 C 68 19 124/60 95 (1) Syncope Syncope type: unspecified Qualified Code(s): R55 - Syncope and collapse
--- NOTE | 2019-08-17 20:25 | Hospitalist Progress Note ---
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;s diseae midorine on hold due to SBP > 160 bilateral charbel stocking UTI : possible cause of dehydration : UTI -urine culture : Kelbsiella changed to PO ABx Keflex Syncope : , no recurrence of symptom since admission no evidence of ACS serial cardiac markers had minimal elevation later plateaued\ CTA of chest negative for PE ECHO : shows no wall motion abnormality , normal EF with diastolic dysfunction HTN : home antihypertensives resumed (2) CAD (coronary artery disease): CAD (coronary artery disease) with multiple PTCA procedure Status post August 2007 PCI of both the RCA and LCX with FABIOLA Status post April 2008 PCI of the mid RCA with 2 FABIOLA Status post May 2008 PCI of the proximal LAD Status post March 2013 PCI of the RCA with a FABIOLA cont on ASA /Plavix Beta paul no angina symptom ECHO no wall motion abnormality TYPE 2 DM : insulin SSI DISPOSITION : appreciate input from PT/OT may need rehab d/w pt reluctant to go to SNF wants to return home with home health ( already established with [facility] nursing ) active with [facility] at home wants to return home with home health if possible called pt's yesterday , left a message for update Admission and Anticipated Discharge Date Admission Date: August 14, 2019 Anticipated date of discharge: 08/16/19 Subjective pt reports of no complain no syncope or lightheadeness no arrythmia pt is ordered bilat Charbel Hose PO midodrine D/morales by cardiology as resting /basline SBP > 160 Physical Exam Constitutional: WD/WN, vitals as above no acute distress Eyes: PERRL, conjunctivae normal, anicteric sclerae ENMT: external ear and nose normal, oropharynx normal Neck: trachea midline, no thyromegaly Respiratory: normal respiratory effort, lungs clear to auscultation Cardiovascular: RRR, no murmur, no edema Gastrointestinal (Abdomen): Inspection/Auscultation: normal bowel sounds Percussion/Palpation: abdomen soft; abdomen nontender Musculoskeletal: no cyanosis or clubbing, extremities motor strength 5/5 Skin: no rashes, warm and dry Neurologic: PERRL, EOMI, accommodation nl, no face palsy, no dysarthria Psychiatric: A+Ox3, euthymic affect Results & Data Results & Data ([facility]) Vital Signs (Past 12 Hours) Vital Signs Temp Pulse Pulse Resp BP BP Pulse Ox 08/17/19 19:25 36.5 C 67 19 161/88 H 97 08/17/19 15:31 63 08/17/19 15:05 36.2 C L 66 18 172/74 H 98 08/17/19 14:26 36.3 C L 65 20 178/81 H 95 08/17/19 11:54 54 L 08/17/19 11:51 36.5 C 66 18 185/83 H 97
[2019-08-17] MEDS: CARBIDOPA/LEVODOPA 50/200MG EXT REL TAB PO SCH (20:51)
[2019-08-18] MEDS: LEVOTHYROXINE SODIUM 125 MCG TABLET PO SCH (05:55)
[2019-08-18] MEDS: HEPARIN SOD 5,000 UNIT/0.5 ML VIAL SQ SCH ×2 (05:56→12:37)
[2019-08-18] MEDS: PANTOprazole 40 MG TAB PO SCH (08:13)
[2019-08-18] MEDS: MULTIVITAMIN TAB PO SCH (08:13)
[2019-08-18] MEDS: METOPROLOL SUCC 25MG EXT REL TAB PO SCH (08:13)
[2019-08-18] MEDS: SERTRALINE HCL 50 MG TABLET PO SCH (08:14)
[2019-08-18] MEDS: CARBIDOPA/LEVODOPA 25/100MG TAB PO SCH ×2 (08:14→12:37)
[2019-08-18] MEDS: CEROVITE ADV FORMULA TAB PO SCH (08:14)
[2019-08-18] MEDS: ATORVASTATIN 40 MG TAB PO SCH (08:14)
[2019-08-18] MEDS: NYSTATIN SUSP 500,000 U/5 ML UDC PO SCH ×2 (08:15→12:37)
[2019-08-18] MEDS: cephALEXin 500 MG CAP PO SCH (08:15)
[2019-08-18] MEDS: INSULIN ASPART 100 UNITS/ML 3 ML PEN SC SCH ×2 (08:15→12:37)
[2019-08-18] MEDS: lisinopriL 5 MG TAB PO SCH (08:16)
--- NOTE | 2019-08-18 13:02 | Cardiology Progress Note ---
Date of Service August 18, 2019 Assessment & Plan (1) Syncope: Per the patient's description this does not appear to be a syncopal event rather a traumatic fall. I do believe that orthostatic hypotension is played a significant role in this but I do not believe this represents an arrhythmogenic event. No arrhythmias on telemetry monitoring. No further cardiac testing or intervention is necessary at this time. Okay to DC telemetry or to home from a cardiac standpoint. (2) Orthostatic hypotension: Improved with IV fluids. I believe there is also a significant component of autonomic insufficiency given her history of Parkinson's disease along with its treatment. Precautions reviewed in order to avoid further episodes in the future including: Adequate hydration, [place] salt intake as well as compression stockings Will allow BP to run on the higher side of normal but lifestyle changes as above will likely be the most significant factors in improving her symptoms. I have no doubt that this will recur in the future but again lifestyle changes have been strongly stressed. Okay to DC to home or rehab from a cardiac standpoint (3) Elevated troponin: Chronically elevated I do not see any signs of active ischemia at this time. Echocardiogram with no new wall motion abnormalities Patient asymptomatic. No further cardiac testing or intervention is necessary at this time (4) CAD (coronary artery disease): Aspirin and Plavix to be held as per neurosurgery's recommendations At this point given the age of her stents I do not see any benefit to restarting her Plavix. However, her aspirin should be restarted once feasible given her history of multiple PCI's (5) Subdural hematoma, post-traumatic: Aspirin and Plavix to be held. Patient was scheduled to see neurology on 08/16/2019 for clearance to resume antiplatelets Would consider inpatient neurology evaluation. Subjective Patient seen and examined states that she is feeling okay. Still gets lightheaded upon standing somewhat but not nearly as severe as previously. Compression stockings have been placed. She denies any chest pain, shortness of breath, palpitations, dizziness or syncope. Telemetry reviewed: Normal sinus rhythm without arrhythmia or significant ectopy. Review of Systems Review of Systems: All systems reviewed & are unremarkable except as noted in HPI & below Physical Exam Physical Exam: General: Awake, alert and oriented x 3. No acute distress. Resting tremor is now present. HEENT: Normocephalic, atraumatic. Pupils equal, round and reactive to light and accommodation. Extraocular muscles are intact. Anicteric sclera. Moist mucous membranes. Neck: No JVD. No bruit. Cardiovascular: Regular. Positive S-4. Normal S-1 and S-2. No S-3. No murmurs or rubs. Pulmonary: Clear to auscultation B/L. No rales, rhonchi or wheezing Abdomen: Bowel sounds x 4, soft. No rebound, guarding or tenderness. No organomegaly. Extremities: No clubbing, cyanosis or edema. +2 pedal pulses bilaterally. Skin: Warm and dry. Results & Data Vital Signs (Past 12 Hours) Vital Signs Temp Pulse Pulse Resp BP Pulse Ox 08/18/19 11:42 36.5 C 70 20 98 08/18/19 10:57 75 138/74 08/18/19 07:33 65 08/18/19 07:02 36.8 C 69 19 163/80 H 92 08/18/19 04:03 36.6 C 63 19 145/73 H 94 (1) Syncope Syncope type: unspecified Qualified Code(s): R55 - Syncope and collapse
--- NOTE | 2019-08-18 15:24 | Hospitalist Progress Note ---
Date of Service August 18, 2019 Assessment & Plan (1) Status post fall: Admission and Anticipated Discharge Date Admission Date: (1) s/p Fall, likely secondary to Orthostatic hypotension, likely contributed by dehydration, concern disease pt continues to have orthostatic BP change ~20 mmm Hg from sitting to standing position but Dizziness improved tolerating PT/OT well no evidence of ACS serial cardiac markers had minimal elevation later plateaued\ CTA of chest negative for PE ECHO : shows no wall motion abnormality , normal EF with diastolic dysfunction Account Information Clerk consult NO arrhythmias noted on court recording monitor Further cardiac testing recommended Patient was given IV fluids Given trial of midodrine but blood pressure was elevated Also, Bilateral daniel stockings provided per Account Information Clerk: Precautions reviewed in order to avoid further episodes in the future including: Adequate hydration, [place] salt intake as well as compression stockings Will allow BP to run on the higher side of normal but lifestyle changes as above will likely be the most significant factors in improving her symptoms. Continue to monitor blood pressure daily Fall precautions (2) UTI possible cause of dehydration : UTI -urine culture : Radha Completed 4-day course of ceftriaxone and Keflex (3) Recent Subdural Hematoma, Subarachnoid Hemorrhage Admitted to [facility] for above Given 2 days of Keppra after discharge Was supposed to follow-up with [facility] neurosurgery August 16, [address] head done at the ER August 14, 2019: No hemorrhage Discussed with [facility] neurosurgeon Dr. Ramos to restart aspirin Restart aspirin 81 mg p.o. daily for CAD (4) HTN home antihypertensives resumed- Metoprolol and Lisinopril (5) CAD (coronary artery disease): with multiple PTCA procedure Status post August 2007 PCI of both the RCA and LCX with FABIOLA Status post April 2008 PCI of the mid RCA with 2 FABIOLA Status post May 2008 PCI of the proximal LAD Status post March 2013 PCI of the RCA with a FABIOLA no angina symptom ECHO no wall motion abnormality Account Information Clerk consulted, recommend to resume aspirin and DC Plavix (6) prediabetes A1c 5.9 DISPOSITION : d/c to SNF ff up with primary care physician 1 week after being discharged from assisted facility Follow-up with [facility] neurosurgery 1 week after being discharged from assisted facility Follow-up with [facility] neurologist as scheduled Anticipated date of discharge: 08/16/19 Subjective Follow-up for fall, orthostasis Seen sitting up in bedside chair, comfortable, awake, alert, oriented, not in distress States that she feels improved overall Walking to the bathroom with minimal dizziness, and resolves easily Denies feeling lightheaded or going to pass out No headache, problems with vision, nausea vomiting, focal neurologic symptom No chest pain, shortness of breath, palpitations No abdominal pain, no problems with urination Does report constipation, positive flatus No other symptoms States she is ready like to be discharged today Review of Systems Review of Systems: All systems reviewed & are unremarkable except as noted in HPI & below Physical Exam Physical Exam: General- oriented x 3, not in distress, speaks in sentences with no effort or accessory muscle use Head- atraumatic Eyes- PERRL, EOMI, anicteric ENT- oropharynx clear Neck- supple, no JVD, no adenopathy, no thyromegaly; carotids +2/2, no bruits appreciated Lungs- clear to auscultation bilaterally, no rales/wheezes Heart- normal rate, regular rhythm; no murmur, no gallop, no rub appreciated Abdomen- normal bowel sounds, nondistended, soft, nontender, no masses or hepatosplenomegaly Extremities- no pretibial edema, no calf tenderness; peripheral pulses intact Neuro- alert, oriented x 3; CN 2-12 grossly intact; motor 5/5 bilaterally;sensation 100% on all extremities; no other gross focal neurologic deficits Positive mild tremors upper arms Skin- warm & dry Results & Data Results & Data ([facility]) Vital Signs (Past 12 Hours) Vital Signs Temp Pulse Pulse Resp BP Pulse Ox 08/18/19 11:42 36.5 C 70 20 98 08/18/19 10:57 75 138/74 08/18/19 07:33 65 08/18/19 07:02 36.8 C 69 19 163/80 H 92 08/18/19 04:03 36.6 C 63 19 145/73 H 94 Laboratory Results Laboratory Results - last 24 hr 08/17/19 08/17/19 08/18/19 16:21 20:23 07:30 POC Glucose 83 100 H 91 08/18/19 11:52 POC Glucose 109 H
--- NOTE | 2019-08-18 16:37 | Discharge Summary ---
Date of Service August 18, 2019 Admission HPI Per Admitting Provider Attending: Dr. Salinas This is an 78-year-old female that lives at home with her . She has a past medical history including Parkinson's disease, coronary artery disease, history of angioplasty, multiple falls, hypothyroidism, dyslipidemia, hypertension, anxiety. The patient states that she has had multiple falls in the last several weeks. This morning she was doing well with no particular ill feelings when she fell forward hyperextending the toes on both feet and falling onto her knees. She states that her witnessed the fall. There was no loss of consciousness but patient did feel foggy. She denies any head injury or long bone injury or pain. The patient states that she has also had some nausea and dry heaves but no vomiting. She has had no fever or chills. She denies any shortness of breath. She has no significant cough or sputum production. She is a non- smoker. She has no other acute complaints. The patient did have a open hernia repair at [facility] at the beginning of July with Dr. Hein. Since that time, the patient has reported nausea. She has no dysphasia. She has bowel movements every 1 to 2 days. Her most recent bowel movement was yesterday which was mixed between formed and soft. She denies any blood in her stool. She has no evidence of peptic ulcer disease. She denies any chest pain. She does report some left calf pain and left calf swelling which is unusual for her. She denies any history of deep vein thrombosis. However, she has had superficial vein thrombosis on the left leg in the past. Patient has no history of malignancy. Most recent coronary intervention was in 2012 with PCI with stenting. The patient followed with Murali Garcia PA-C with [facility] cardiology. The patient has never been on warfarin or other anticoagulants but is chronically on Plavix 75 mg p.o. daily. Due to the patient's many falls, she has seen Dr. Martin in the outpatient office. Lisinopril was recently decreased. Patient is unaware of any other acute medication changes. The patient has no interaction with sick contacts as of late. She has no travel. She has had no visitors from endemic areas or with COVID-19 symptoms or positive testing. The patient has never been a smoker. The patient states that she uses a cane when out in public and a walker at home. She self reports multiple falls over the last 4 weeks. Admission Exam Per Admitting Provider GENERAL : No acute distress. Pleasant. No garbled speech. No shortness of breath with full sentences. EYES: No icterus, gaze conjugate. Pupils are equal NOSE: No evidence of epistaxis MOUTH: No lesions. There is evidence of candidiasis on the tongue and posterior oropharynx. NECK: Supple. No carotid bruits LUNGS: CTA B/L, no wheezes, rales or rhonchi HEART: Regular, rate controlled ABDOMEN: Soft, NT, ND, BS Present. Healing surgical scar with no open areas or induration. EXTREMITIES: Left LE edema, pedal pulses intact and equal bilaterally. There is bruising on the dorsal surface of right and left great toes. There is also some evidence of ecchymosis on the dorsal surface of the right foot. Patient is able to move her toes foot and ankle without difficulty other than a minimal amount of pain. NEURO: A&OX3 Principal Diagnosis Status post fall, likely secondary to orthostatic hypotension, in the setting of UTI, dehydration, Parkinson disease Discharge Exam General- oriented x 3, not in distress, speaks in sentences with no effort or accessory muscle use Head- atraumatic Eyes- PERRL, EOMI, anicteric ENT- oropharynx clear Neck- supple, no JVD, no adenopathy, no thyromegaly; carotids +2/2, no bruits appreciated Lungs- clear to auscultation bilaterally, no rales/wheezes Heart- normal rate, regular rhythm; no murmur, no gallop, no rub appreciated Abdomen- normal bowel sounds, nondistended, soft, nontender, no masses or hepatosplenomegaly Extremities- no pretibial edema, no calf tenderness; peripheral pulses intact Neuro- alert, oriented x 3; CN 2-12 grossly intact; motor 5/5 bilaterally;sensation 100% on all extremities; no other gross focal neurologic deficits Positive mild tremors upper arms Skin- warm & dry Discharge Data Allergies Allergy/AdvReac Type Severity Reaction Status Date / Time celecoxib AdvReac Intermediate GI SYMPTOMS Verified 07/23/19 12:22 hydrocodone AdvReac Unknown STOMACH Verified 07/23/19 12:22 IRRITATION Consultations 08/14/19 12:24 ED Decision to Admit Stat 08/14/19 14:47 Consult Case Management - Discharge Planning Routine 08/14/19 19:06 Consult Cardiology Routine 08/18/19 13:41 Consult Neurology Routine Ordered Studies 08/14/19 10:25 CT cervical spine wo con Stat 1. No acute osseous injury of the cervical spine. 2. Multilevel degenerative changes. CT head/brain wo con Stat 1. Chronic small vessel ischemic change. No acute intracranial abnormality. 08/14/19 12:51 US venous doppler LE BI Stat No evidence of deep venous thrombosis. 08/14/19 19:07 CT angio chest PE protocol Stat CT angio chest PE protocol CLINICAL HISTORY: 78 years-old Female presenting with atypical chest pain, weakness. TECHNIQUE: Multidetector CT angiography of the chest was performed after administration of intravenous contrast. 3-D volumetric and/or maximum intensity projection (MIP) images were subsequently reconstructed for review. IV contrast: 119 mL of Optiray 320. One or more dose lowering techniques were used consistent with the principles of ALARA (as low as reasonably achievable), including automatic exposure control, mA or kV adjustment to individual patient size, and/or use of iterative reconstruction. COMPARISON: Chest x-ray performed earlier today and CTA chest from 03/22/2013. CT DOSE (mGy.cm): The estimated cumulative dose is 259.67 mGy.cm. FINDINGS: Mine Environmental Engineer topogram: Unremarkable. Pulmonary vasculature: The study is suboptimal for the assessment of the pulmonary vascular tree secondary to respiratory motion artifact. This mildly degrades evaluation of the lung bases. No filling defect within the pulmonary arteries to suggest embolus. Main pulmonary artery enlarged measuring 3.3 cm in diameter. No flattening of the interventricular septum. No intracardiac filling defect. No reflux of contrast into the hepatic veins. Remaining chest: Soft tissues: Normal thyroid and thoracic inlet. No axillary, supraclavicular, mediastinal, or hilar lymphadenopathy. Few small right infrahilar lymph nodes along the bronchovascular bundle. Atherosclerosis of the aorta. Multichamber enlargement of the heart. Coronary artery and aortic valve calcification. No pericardial or pleural effusion. Small sliding-type hiatal hernia. Lungs and airways: No pneumothorax. Central airways patent. Pulmonary arteries enlarged relative to adjacent bronchi. No interlobular septal thickening. Mosaic attenuation mostly in the lung bases may be due to the phase of respiration. Minimal dependent changes likely atelectasis. No other focal nodule or infiltrate. Musculoskeletal: Degenerative changes of the spine. Subacute to chronic fracture of the anterior right sixth rib at the costochondral articulation. No acute osseous injury. IMPRESSION: 1. No evidence of pulmonary embolus. 2. Findings suggest pulmonary artery hypertension. 3. No focal infiltrate to suggest pneumonia. 4. Right infrahilar lymph nodes suspected along the bronchovascular bundle. Less likely this could represent parenchymal lung nodules. 5. Subacute anterior right sixth rib fracture. Hospital Course (1) Status post fall: (1) s/p Fall, likely secondary to Orthostatic hypotension, likely contributed by dehydration, concern disease pt continues to have orthostatic BP change ~20 mmm Hg from sitting to standing position but Dizziness improved tolerating PT/OT well no evidence of ACS serial cardiac markers had minimal elevation later plateaued\ CTA of chest negative for PE ECHO : shows no wall motion abnormality , normal EF with diastolic dysfunction Deputy County Attorney consult NO arrhythmias noted on ekg monitor tech Further cardiac testing recommended Patient was given IV fluids Given trial of midodrine but blood pressure was elevated Also, Bilateral daniel stockings provided per Deputy County Attorney: Precautions reviewed in order to avoid further episodes in the future including: Adequate hydration, [place] salt intake as well as compression stockings Will allow BP to run on the higher side of normal but lifestyle changes as above will likely be the most significant factors in improving her symptoms. Continue to monitor blood pressure daily Fall precautions (2) UTI possible cause of dehydration : UTI -urine culture : Radha Completed 4-day course of ceftriaxone and Keflex (3) Recent Subdural Hematoma, Subarachnoid Hemorrhage Admitted to [facility] for above Given 2 days of Keppra after discharge per protocol Was supposed to follow-up with [facility] neurosurgery August 16, [address] head done at the ER August 14, 2019: No hemorrhage Discussed with [facility] neurosurgeon Dr. Ramos to restart aspirin Restart aspirin 81 mg p.o. daily for CAD (4) HTN home antihypertensives resumed- Metoprolol and Lisinopril (5) CAD (coronary artery disease): with multiple PTCA procedure Status post August 2007 PCI of both the RCA and LCX with FABIOLA Status post April 2008 PCI of the mid RCA with 2 FABIOLA Status post May 2008 PCI of the proximal LAD Status post March 2013 PCI of the RCA with a FABIOLA no angina symptom ECHO no wall motion abnormality Deputy County Attorney consulted, recommend to resume aspirin and DC Plavix (6) prediabetes A1c 5.9 (7) Abnormal CT chest: Right infrahilar lymph nodes suspected along the bronchovascular bundle. Less likely this could represent parenchymal lung nodules. - please refer to full report as noted above (8) Constipation - start Senokot S daily DISPOSITION : d/c to SNF ff up with primary care physician 1 week after being discharged from long-term [facility] Follow-up with [facility] neurosurgery within 1 week. Follow-up with [facility] neurologist as scheduled Anticipated date of discharge: 08/16/19 Total Time Total Time Spent Total Time Spent (In Minutes): 60 minutes Discharge Plan Discharge Items Patient Disposition: Transfer Custodial [facility] Reason For Visit: FALL/SYNCOPE Discharge Diagnosis: Status post fall, secondary to orthostatic hypotension, in the setting of UTI, dehydration, Parkinson disease Activity: As commented below Activity Comment: Resume activity gradually as tolerated, always with assistance, continue PT and OT, fall precautions Lifting: Wait until after follow-up appointment Driving/Machine Use: No driving until reevaluated and allowed by primary care physician and neurologist Non-emergency contact: Primary Care Provider Call non-emergency contact if: you have any medication questions, your symptoms worsen and you have a fever Follow-up/Referrals: Raisa Martin MD [Primary Care Provider] - Rere Yanes MD [Physician] - Diet: Carb Consistent or DM2 and Heart Healthy Addtl Attending Provider Instructions: Liberalize salt intake. Always maintain well treated. Continue compression stockings. Do not get up from laying or sitting position too quickly. No driving until reevaluated and allowed by primary care physician and neurologist. Please refer to accompanying discharge summary for full details. Follow-up with primary care physician within 1 week after discharge from long-term facility. Follow-up with [facility] neurosurgery within 1 week. Follow-up with [facility] neurologist as scheduled. Pending Studies at Discharge: No Stand-Alone Forms: [employer], Smoking Cessation Medications and DC Order Prescriptions: New nystatin 100,000 unit/mL Suspension 5 ml PO QID 5 Days Qty: 100 RF: 0 sennosides-docusate sodium [Senokot-S] 8.6-50 mg tablet 1 tabcap PO DAILY Qty: 30 RF: 0 Continued atorvastatin 40 mg Tablet 40 mg PO QAM RF: 0 carbidopa-levodopa 50-200 mg Tablet Extended Release 1 tab PO PM RF: 0 pantoprazole 40 mg Tablet,Delayed Release (Dr/Ec) 40 mg PO QAM RF: 0 levothyroxine 125 mcg Tablet 125 mcg PO QAM RF: 0 lisinopril 5 mg Tablet 5 mg PO QAM RF: 0 metoprolol succinate 25 mg Tablet Extended Release 24 Hr 37.5 mg PO QAM RF: 0 multivitamin Capsule 1 cap PO DAILY RF: 0 sertraline 50 mg Tablet 50 mg PO DAILY RF: 0 carbidopa-levodopa 25-100 mg Tablet 1.5 tab PO TID RF: 0 rasagiline 1 mg tablet 1 mg PO DAILY RF: 0 aspirin 81 mg Tablet,Delayed Release (Dr/Ec) 81 mg PO DAILY RF: 0 PreserVision AREDS [id number] Tablet 0 tab PO DAILY RF: 0 ranitidine HCl 150 mg tablet 150 mg PO DAILY RF: 0 Discontinued clopidogrel 75 mg Tablet 75 mg PO QAM RF: 0 fluconazole 100 mg tablet 200 mg PO DAILY RF: 0 Discharge Orders: Discharge Order (Routine); Ordered 08/18/19 Ordered By: David Rico Admission Data Admit Date/Time: 08/14/19 13:07 Attending Provider: David Rico Admit Provider: Hedy Salinas Primary Care Provider: Raisa Martin Other Providers: Hedy Salinas ; Vin Saleh ; Jacoby Baldwin ; Eugene Ferro ; Cyrus Coles ; BonillaJony murray ; Murali Garcia ; Luisa Hartmann ; Rere Melendez ; Jett Ken ; Grace Matthews ; Rere Yanes
== END 2019-08-18 18:07 | DRG 57 ==
LOC: ED 09:58 → SUATTDRO 13:07 → 2W 13:07

== ENCOUNTER 2020-08-16 09:59 | Inpatient (IN) ==
[2020-08-16] MEDS ORDERED: SODIUM CHLORIDE 0.9% 1000ML 500 ML IV ONE (10:28)
[2020-08-16] MEDS ORDERED: ONDANSETRON INJ 2 MG/ML 2 ML VIAL IV STA (10:28)
--- NOTE | 2020-08-16 10:33 | Emergency Department Note ---
Impression & Plan SOB (shortness of breath), Elevated troponin, Nausea, History of coronary artery disease ED Provider Note NAME: KESHA CALLES AGE: 79 SEX: F : 1940 ARRIVES VIA: Ambulance INFORMANT: [Patient][ems] ED PROVIDER(S): [Porfirio Boggs MD] CHIEF COMPLAINT: Short of breath HISTORY OF PRESENT ILLNESS: The patient is an 79-year-old female who presents with shortness of breath for several weeks, mostly noted at nighttime. In the last day or so it has worsened. She has also had dry heaving and some vomiting since yesterday. She has no chest pain or abdominal pain. There has been no fever or real increased cough. She has had no Covid exposures, she is not vaccinated against Covid. Patient does have a history of gastroparesis as well as Parkinson's. She states that she is taking all her medications as prescribed. She has nausea medication she believes at home but could not find it to use for the vomiting. Of note, she does have a cardiac history, no real lung history. REVIEW OF SYSTEMS: See HPI for pertinent positives and negatives. A total of ten systems were reviewed and were otherwise negative. PMHx/PSHx: See Below SOCIAL HISTORY: See Below. PHYSICAL EXAM: GENERAL: Patient is in no acute distress. HEENT: No acute trauma, normocephalic atraumatic, mucous membranes moist, no nasal congestion, no scleral icterus. NECK: No stridor, no adenopathy, no meningismus, trachea is midline. LUNGS: Clear to auscultation bilaterally, no wheeze, no rhonchi, breath sounds equal. HEART: Without murmurs gallops or rubs, regular rate and rhythm. ABDOMEN: Soft, mildly tender to the epigastric area, bowel sounds positive, no hernias, no peritonitis. EXTREMITIES: No cyanosis or edema, full range of motion of all the joints without pain or difficulty, no signs for acute trauma. NEUROLOGIC: Oriented x 3, no acute motor or sensory deficits, no focal weakness. SKIN: No rash, no jaundice, no diaphoresis. DIFFERENTIAL DIAGNOSIS: Reactive airway disease, pneumonia, pneumothorax, COPD, COVID-19, influenza, CHF, infection, cardiac ischemia, pulmonary embolism, bronchitis, musculoskeletal, gastrointestinal, as well as other pathologies. EMERGENCY DEPARTMENT COURSE/PROCEDURES: ECG: Indication was shortness of breath. The ECG shows a normal sinus rhythm with a rate of 63. There is no ST elevation, no PVCs. The QTc is 458. LVH is present. Continuous Cardiac Monitoring: An order was placed for continuous cardiac monitoring. The monitor shows a rate of 81 with normal sinus rhythm. MEDICAL DECISION MAKING: There is no leukocytosis or concerning anemia. No coagulopathy. D-dimer is elevated at around 1400. Potassium slightly low at 3.2. No kidney failure. No concerning liver enzyme elevation. Covid and influenza testing returned negative. Chest film did not show any obvious pneumonia or CHF. Chest CT does not show PE, no pneumonia. ECG shows a sinus rhythm, no acute ischemia. Cardiac enzyme testing x1 is elevated consistent with possible cardiac injury or strain. KUB showed some constipation, no bowel obstruction. The patient presents with some shortness of breath, nausea. She has a known coronary artery history. She does have an elevated troponin on testing today. Patient received a 500 cc saline bolus. She received IV hydralazine for her elevated blood pressure. She received IV Zofran for nausea. She was ordered for a dose of oral potassium. Given her circumstances, given the troponin elevation, I do think a hospital stay is warranted. I am worried about cardiac ischemia as a cause of her dyspnea. I spoke to the patient and family. I spoke with case management. The on-call hospitalist was consulted. Past Med/Surg History Medical History Anxiety CAD (coronary artery disease) Status post August 2007 PCI of both the RCA and LCX with FABIOLA Status post April 2008 PCI of the mid RCA with 2 FABIOLA Status post May 2008 PCI of the proximal LAD Status post March 2013 PCI of the RCA with a FABIOLA GERD (gastroesophageal reflux disease) Hyperlipidemia Hypertension Hypothyroidism Parkinson disease Prediabetes Per records Surgical History History of ankle surgery LEFT History of appendectomy History of arthroplasty of right knee x 2 per records History of cardiac cath 08/2007, 04/2008, 2008, 2012 History of cholecystectomy Per records History of colonoscopy History of herniorrhaphy Per records History of hysterectomy History of thumb surgery Per records- right thumb Hx of angioplasty [place] Family History Mother Diabetes Brother Myocardial infarction Social History Smoking Status: Never smoker Second Hand Exposure: No; Do You Dip or Chew Tobacco: No; Tobacco Cessation Education Requested by Patient: No Hx Alcohol Use: No Hx Substance Use: No Preferred Language: Frisian Communication Ability: Effective 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 Beliefs That Will Affect Care: None marital status: Current Living Situation: Spouse Feels Safe at Home: Yes Safety Concerns: Feels Safe At This Time Assistive Devices: Denture - Upper, Denture - Lower and Glasses Allergies Allergies Allergy/AdvReac Type Severity Reaction Status Date / Time celecoxib AdvReac Intermediate GI SYMPTOMS Verified 08/16/20 11:26 hydrocodone AdvReac Unknown STOMACH Verified 08/16/20 11:26 IRRITATION Home Meds Home Medications Medication Instructions Recorded Confirmed atorvastatin 40 mg PO HS 06/25/19 08/16/20 carbidopa-levodopa 1 tab PO BID 06/25/19 08/16/20 pantoprazole 40 mg PO QAM 06/25/19 08/16/20 carbidopa-levodopa 1.5 tab PO QID 07/13/19 08/16/20 rasagiline 1 mg PO QAM 07/13/19 08/16/20 melatonin 5 mg PO HS PRN 01/07/20 08/16/20 vit C-vit [id number] 1 cap PO QAM 01/07/20 08/16/20 [Ocuvite] acetaminophen [Tylenol] 650 mg PO Q4 PRN 08/16/20 08/16/20 cetirizine [Zyrtec] 10 mg PO DAILY 08/16/20 08/16/20 clotrimazole 10 mg PO .5 TIMES A DAY 08/16/20 08/16/20 levothyroxine 112 mcg PO DAILY 08/16/20 08/16/20 midodrine 2.5 mg PO TID 08/16/20 08/16/20 potassium chloride 20 meq PO DAILY 08/16/20 08/16/20 sertraline 100 mg PO DAILY 08/16/20 08/16/20 sucralfate 1 g PO QID 08/16/20 08/16/20 Results & Data (ED) Vital Signs Vital Signs - 24 hr 08/16/20 10:11 08/16/20 10:12 08/16/20 10:29 Temperature 36.9 C Temperature Source Oral Pulse Rate 64 64 Pulse Rate from SpO2 Sensor Respiratory Rate 21 17 Respiratory Effort / Characteristics Non-Labored Spontaneous Respiratory Depth Normal Blood Pressure 213/94 H 213/94 H Blood Pressure Mean 133 133 Blood Pressure Position Lying Pulse Oximetry 94 94 Oxygen Delivery Method Room Air Room Air Sepsis Recent Fever Within 48 Hours No Sepsis New/Unexplained Change in Mental Status No Sepsis Action Taken by Nursing No Action Required 08/16/20 10:30 08/16/20 11:00 08/16/20 11:30 Temperature Temperature Source Pulse Rate 66 67 65 Pulse Rate from SpO2 Sensor 66 65 Respiratory Rate 22 18 15 Respiratory Effort / Characteristics Respiratory Depth Blood Pressure 185/97 H 181/94 H 188/101 H Blood Pressure Mean 126 123 130 Blood Pressure Position Pulse Oximetry 97 98 Oxygen Delivery Method Sepsis Recent Fever Within 48 Hours Sepsis New/Unexplained Change in Mental Status Sepsis Action Taken by Nursing 08/16/20 12:00 08/16/20 12:30 Temperature Temperature Source Pulse Rate 66 66 Pulse Rate from SpO2 Sensor 66 66 Respiratory Rate 19 16 Respiratory Effort / Characteristics Respiratory Depth Blood Pressure 176/91 H 178/87 H Blood Pressure Mean 119 117 Blood Pressure Position Pulse Oximetry 98 93 Oxygen Delivery Method Sepsis Recent Fever Within 48 Hours Sepsis New/Unexplained Change in Mental Status Sepsis Action Taken by [facility]way Medications Current Medication List: was personally reviewed by me Laboratory Data Attestation: I reviewed the patient's lab results. Result diagrams: 08/16/20 10:30 08/16/20 10:30 Lab Results 08/16/20 08/16/20 08/16/20 Range/Units 10:30 10:30 10:30 WBC 6.10 (4.8-10.8) K/uL RBC 4.55 (4.2-5.4) M/uL Hgb 13.5 (12.0-16.0) g/dL Hct 39.7 (37-47) % MCV 87.3 (80-100) fL MCH 29.7 (25-34) pg MCHC 34.0 (32-36) g/dL RDW Std Deviation 46.0 (36.4-46.3) fL RDW Coeff of Ananya 14.3 (11.5-14.5) % Plt Count 304 (130-400) K/uL MPV 9.4 (7.4-10.4) fL Immature Gran % (Auto) 0.2 % Neut % (Auto) 71.1 % Lymph % (Auto) 20.3 % Tripp % (Auto) 7.7 % Eos % (Auto) 0.5 % Baso % (Auto) 0.2 % Neut # (Auto) 4.34 (1.4-6.5) K/uL Lymph # (Auto) 1.24 (1.2-3.4) K/uL Tripp # (Auto) 0.47 (0.11-0.59) K/uL Eos # (Auto) 0.03 (0-0.5) K/uL Baso # (Auto) 0.01 (0-0.2) K/uL Immature Gran # (Auto) 0.01 (0.00-0.02) K/uL PT 10.5 (9.0-12.0) Seconds INR 1.0 (0.9-1.1) APTT 24.5 (21.0-31.0) Seconds PTT Ratio 0.9 D-Dimer 1450 H* (0-500) ug/L FEU Sodium 135 L (136-145) mmol/L Potassium 3.2 L (3.5-5.1) mmol/L Chloride 98 (98-107) mmol/L Carbon Dioxide 31 (21-32) mmol/L Anion Gap 5.0 (3-11) BUN 19 H (7-18) mg/dl Creatinine 0.92 (0.6-1.2) mg/dl Est Cr Clr Drug Dosing 40.5 ml/min Est GFR ( Amer) 67.7 Est GFR (Non-Af Amer) 58.4 BUN/Creatinine Ratio 21.0 H (10-20) Glucose 106 H (70-99) mg/dl Calcium 9.6 (8.5-10.1) mg/dl Magnesium 2.2 (1.8-2.4) mg/dl Total Bilirubin 0.9 (0.2-1) mg/dl AST 17 (15-37) U/L ALT 10 L (12-78) U/L Alkaline Phosphatase 75 (45-117) U/L Troponin I 0.065 H* (0-0.045) ng/ml NT-Pro-B Natriuret Pep (0-1800) pg/ml Total Protein 7.3 (6.4-8.2) gm/dl Albumin 4.3 (3.4-5.0) gm/dl Globulin 3.0 (2.5-4.0) gm/dl Albumin/Globulin Ratio 1.4 (0.9-2) COVID-19 Eval Order SARS-CoV-2 (PCR) (Negative) Influenza Type A (PCR) (Neg) Influenza Type B (PCR) (Neg) RSV (RT-PCR) (Neg) 08/16/20 08/16/20 08/16/20 Range/Units 10:30 10:33 10:33 WBC (4.8-10.8) K/uL RBC (4.2-5.4) M/uL Hgb (12.0-16.0) g/dL Hct (37-47) % MCV (80-100) fL MCH (25-34) pg MCHC (32-36) g/dL RDW Std Deviation (36.4-46.3) fL RDW Coeff of Ananya (11.5-14.5) % Plt Count (130-400) K/uL MPV (7.4-10.4) fL Immature Gran % (Auto) % Neut % (Auto) % Lymph % (Auto) % Tripp % (Auto) % Eos % (Auto) % Baso % (Auto) % Neut # (Auto) (1.4-6.5) K/uL Lymph # (Auto) (1.2-3.4) K/uL Tripp # (Auto) (0.11-0.59) K/uL Eos # (Auto) (0-0.5) K/uL Baso # (Auto) (0-0.2) K/uL Immature Gran # (Auto) (0.00-0.02) K/uL PT (9.0-12.0) Seconds INR (0.9-1.1) APTT (21.0-31.0) Seconds PTT Ratio D-Dimer (0-500) ug/L FEU Sodium (136-145) mmol/L Potassium (3.5-5.1) mmol/L Chloride (98-107) mmol/L Carbon Dioxide (21-32) mmol/L Anion Gap (3-11) BUN (7-18) mg/dl Creatinine (0.6-1.2) mg/dl Est Cr Clr Drug Dosing ml/min Est GFR ( Amer) Est GFR (Non-Af Amer) BUN/Creatinine Ratio (10-20) Glucose (70-99) mg/dl Calcium (8.5-10.1) mg/dl Magnesium (1.8-2.4) mg/dl Total Bilirubin (0.2-1) mg/dl AST (15-37) U/L ALT (12-78) U/L Alkaline Phosphatase (45-117) U/L Troponin I (0-0.045) ng/ml NT-Pro-B Natriuret Pep 1486 (0-1800) pg/ml Total Protein (6.4-8.2) gm/dl Albumin (3.4-5.0) gm/dl Globulin (2.5-4.0) gm/dl Albumin/Globulin Ratio (0.9-2) COVID-19 Eval Order CovFluRsv at [facility] SARS-CoV-2 (PCR) NEGATIVE (Negative) Influenza Type A (PCR) Negative (Neg) Influenza Type B (PCR) Negative (Neg) RSV (RT-PCR) Negative (Neg) Administered Medications Heparin Sodium (Porcine) (Heparin Sod 5,000 Unit/0.5 Ml Vial) 5,000 units SQ Q8 [facility] Stop: 09/15/20 13:59 Last Admin: 08/16/20 15:40 Dose: Not Given Documented by: [id number] Non-Formulary Medication (Rasagiline) 1 mg PO QAM [facility] Stop: 09/15/20 13:44 Last Admin: 08/16/20 14:09 Dose: Not Given Documented by: [id number] Pantoprazole Sodium (Pantoprazole 40 Mg Tab) 40 mg PO QAM [facility] Stop: 09/15/20 13:44 Last Admin: 08/16/20 14:17 Dose: 40 mg Documented by: [id number] Discontinued Medications Carbidopa/Levodopa (Carbidopa/Levodopa 25/100mg Tab) 1.5 tab PO NOW [facility] Stop: 08/16/20 13:24 Last Admin: 08/16/20 14:17 Dose: 1.5 tab Documented by: [id number] Hydralazine HCl (Hydralazine Hcl 20 Mg/Ml Vial) 5 mg IV NOW STA Stop: 08/16/20 12:34 Last Admin: 08/16/20 13:01 Dose: 5 mg Documented by: [id number] Sodium Chloride (Nss 1000ml) 500 mls @ 999 mls/hr IV .Q31M ONE Stop: 08/16/20 10:58 Last Infusion: 08/16/20 12:46 Dose: 0 mls/hr Documented by: [id number] Admin: 08/16/20 12:07 Dose: 999 mls/hr Documented by: [id number] Ioversol (Optiray 320 125ml) 119 ml IV ONCE ONE Stop: 08/16/20 11:42 Last Admin: 08/16/20 11:41 Dose: 119 ml Documented by: [id number] Labetalol HCl (Labetalol Hcl Iv 5 Mg/Ml 20ml) 5 mg IV NOW STA Stop: 08/16/20 16:13 Last Admin: 08/16/20 17:32 Dose: 5 mg Documented by: [id number] Cosigned by: [id number] Ondansetron HCl (Ondansetron Inj 2 Mg/Ml 2 Ml Vial) 4 mg IV NOW STA Stop: 08/16/20 10:29 Last Admin: 08/16/20 12:07 Dose: 4 mg Documented by: [id number] Potassium Chloride (Potassium Chloride Crtab 20 Meq Tabcr) 40 meq PO NOW STA Stop: 08/16/20 12:48 Last Admin: 08/16/20 13:01 Dose: 20 meq Documented by: [id number] Potassium Chloride (Potassium Chloride Crtab 20 Meq Tabcr) 20 meq PO NOW STA Stop: 08/16/20 13:09 Last Admin: 08/16/20 14:17 Dose: Not Given Documented by: [id number] Potassium Chloride (Potassium Chloride 10 Meq Tabcr) Confirm Administered Dose 20 meq PO .STK-MED ONE Stop: 08/16/20 14:14 Last Admin: 08/16/20 14:17 Dose: 20 meq Documented by: [id number] Imaging Data Radiologist's Impression: KUB X-Ray 08/16/20 10:28 XR chest 1V portable, XR KUB/Abdomen 1 view HISTORY: 79 years-old Female SOB acute shortness of breath with nausea and vomiting COMPARISON: Chest radiograph 01/07/2020, CT abdomen and pelvis 07/23/2019 TECHNIQUE: AP view the chest with KUB radiograph FINDINGS: CHEST: Cardiac silhouette is enlarged. No pneumothorax, pleural effusion, airspace consolidation or overt pulmonary edema. 2.0 cm nodular opacity projects over the right lung base. Degenerative changes of the shoulders and spine. KUB: Moderate fecal retention. Vascular calcifications. Nonobstructive bowel gas pattern. No definite urolith. The glottis of the pelvis. Degenerative changes of the spine, pelvis and hips. IMPRESSION: 1. No acute processes of the chest. 2. 2.0 cm nodular opacity of the right lung base is likely secondary to summation density. This could be correlated with follow-up PA and lateral views of the chest. 3. Nonobstructive bowel gas pattern. 4. Moderate fecal retention. ACT 112: Negative or not required by law. The above report was generated using voice recognition software. It may contain grammatical, syntax or spelling errors. Electronically signed by: Stewart Grullon M.D. 08/16/2020 11:03 AM Chest X-Ray 08/16/20 10:29 XR chest 1V portable, XR KUB/Abdomen 1 view HISTORY: 79 years-old Female SOB acute shortness of breath with nausea and vomiting COMPARISON: Chest radiograph 01/07/2020, CT abdomen and pelvis 07/23/2019 TECHNIQUE: AP view the chest with KUB radiograph FINDINGS: CHEST: Cardiac silhouette is enlarged. No pneumothorax, pleural effusion, airspace consolidation or overt pulmonary edema. 2.0 cm nodular opacity projects over the right lung base. Degenerative changes of the shoulders and spine. KUB: Moderate fecal retention. Vascular calcifications. Nonobstructive bowel gas pattern. No definite urolith. The glottis of the pelvis. Degenerative changes of the spine, pelvis and hips. IMPRESSION: 1. No acute processes of the chest. 2. 2.0 cm nodular opacity of the right lung base is likely secondary to summation density. This could be correlated with follow-up PA and lateral views of the chest. 3. Nonobstructive bowel gas pattern. 4. Moderate fecal retention. ACT 112: Negative or not required by law. The above report was generated using voice recognition software. It may contain grammatical, syntax or spelling errors. Electronically signed by: Stewart Grullon M.D. 08/16/2020 11:03 AM Chest CTA 08/16/20 11:08 CT ANGIOGRAPHY OF THE CHEST, PULMONARY EMBOLUS PROTOCOL CLINICAL HISTORY: Shortness of breath. Evaluate for pulmonary embolus. COMPARISON STUDY: Chest CT August 14, 2019. Chest radiograph performed earlier today. TECHNIQUE: Following IV administration of 119 mL of Optiray-320, helical axial images of the chest were obtained utilizing the pulmonary embolus protocol. Maximal intensity projections and sagittal and coronal reformats were viewed on an independent 3D workstation. IV contrast was administered without complication. Automated exposure control was utilized for the study. A dose lowering technique was utilized adhering to the principles of ALARA. CT DOSE: 252.86 mGy.cm FINDINGS: No pulmonary emboli are identified. There is mild dilatation of the central pulmonary arteries. Moderate cardiomegaly is noted. The ascending aorta is ectatic. Extensive coronary artery calcification is present. There is no pericardial effusion. No pneumothorax or pleural effusion is noted. Ground glass opacities reflect atelectasis. There is no consolidation to suggest pneumonia. There are no suspicious pulmonary nodules. No suspicious lesion or acute fractures identified within visualized portions of the bony thorax. There is a small hiatal hernia. IMPRESSION: 1. No pulmonary emboli identified. 2. No acute process within the chest. 3. Moderate cardiomegaly and extensive coronary artery calcification. ACT 112: Negative or not required by law. Electronically signed by: Gabriel Irving M.D. 08/16/2020 12:02 PM Discharge Plan Visit Data Chief Complaint: Shortness of Breath/Dyspnea ED Provider: Porfirio Boggs Discharge Problem: SOB (shortness of breath), Elevated troponin, Nausea, History of coronary artery disease Patient Disposition: Admitted As Inpatient Condition: Fair Discharge Instructions Interventions: ED Discharge Assessment Last Done: 08/16/20 15:40
[2020-08-16 10:44] LABS: Basophils # (auto) 0.01 K/uL (0-0.2); Basophils % (auto) 0.2 %; Eosinophils # (auto) 0.03 K/uL (0-0.5); Eosinophils % (auto) 0.5 %; Hematocrit (blood only) 39.7 % (37-47); Hemoglobin 13.5 g/dL (12.0-16.0); Immature Granulocytes # (auto) 0.01 K/uL (0.00-0.02); Immature Granulocytes % (auto) 0.2 %; Lymphocytes # (auto) 1.24 K/uL (1.2-3.4); Lymphocytes % (auto) 20.3 %; Mean Corpuscular Hemoglobin 29.7 pg (25-34); Mean Corpuscular Volume 87.3 fL (80-100); Mean Platelet Volume 9.4 fL (7.4-10.4); Monocytes # (auto) 0.47 K/uL (0.11-0.59); Monocytes % (auto) 7.7 %; Neutrophils # (auto) 4.34 K/uL (1.4-6.5); Neutrophils % (auto) 71.1 %; Platelet Count 304 K/uL (130-400); RDW Coefficient of Variation 14.3 % (11.5-14.5); Red Blood Count 4.55 M/uL (4.2-5.4)
[2020-08-16 11:02] LABS: Partial Thromboplastin Ratio 0.9; Partial Thromboplastin Time 24.5 Seconds (21.0-31.0); Prothrombin Time 10.5 Seconds (9.0-12.0)
[2020-08-16 11:04] LABS: D Dimer 1450 ug/L FEU (0-500)
--- NOTE | 2020-08-16 11:04 | XRay Report ---
XR chest 1V portable, XR KUB/Abdomen 1 view HISTORY: 79 years-old Female SOB acute shortness of breath with nausea and vomiting COMPARISON: Chest radiograph 01/07/2020, CT abdomen and pelvis 07/23/2019 TECHNIQUE: AP view the chest with KUB radiograph FINDINGS: CHEST: Cardiac silhouette is enlarged. No pneumothorax, pleural effusion, airspace consolidation or overt pu lmonary edema. 2.0 cm nodular opacity projects over the right lung base. Degenerative changes of the shoulders and spine. KUB: Moderate fecal retention. Vascular calcifications. Nonobstructive bowel gas pattern. No definite uro lith. The glottis of the pelvis. Degenerative changes of the spine, pelvis and hips. IMPRESSION: 1. No acute processes of the chest. 2. 2.0 cm nodular opacity of the right lung base is likely secondary to summation density. This could be correlated with follow-up PA and lateral views of the chest. 3. Nonobstructive bowel gas pattern. 4. Moderate fecal retention. ACT 112: Negative or not required by law. The above report was generated using voice recognition software. It may contain grammatical, syntax o r spelling errors. Electronically signed by: Stewart Grullon M.D. 08/16/2020 11:03 AM
[2020-08-16 11:07] LABS: Albumin Level 4.3 gm/dl (3.4-5.0); Calcium 9.6 mg/dl (8.5-10.1); Creatinine Clr Calc Pharmacy 40.5 ml/min; Est GFR (African American) 67.7; Est GFR (Non-African American) 58.4; Magnesium 2.2 mg/dl (1.8-2.4); Potassium 3.2 mmol/L (3.5-5.1)
[2020-08-16 11:15] LABS: Albumin Globulin Ratio 1.4 (0.9-2); Bilirubin,Total 0.9 mg/dl (0.2-1); Total Protein 7.3 gm/dl (6.4-8.2); Troponin I 0.065 ng/ml (0-0.045)
[2020-08-16] MEDS ORDERED: OPTIRAY 320 125ml IV ONE (11:41)
[2020-08-16 11:51] LABS: Influenza A virus by PCR Negative (Neg); Influenza B virus by PCR Negative (Neg); RSV by PCR Negative (Neg); SARS CoV2 RNA(COVID-19) InHosp NEGATIVE (Negative)
--- NOTE | 2020-08-16 12:03 | CT Scan Report ---
CT ANGIOGRAPHY OF THE CHEST, PULMONARY EMBOLUS PROTOCOL CLINICAL HISTORY: Shortness of breath. Evaluate for pulmonary embolus. COMPARISON STUDY: Chest CT August 14, 2019. Chest radiograph performed earlier today. TECHNIQUE: Following IV administration of 119 mL of Optiray-320, helical axial images of the chest we re obtained utilizing the pulmonary embolus protocol. Maximal intensity projections and sagittal and coronal reformats were viewed on an independent 3D workstation. IV contrast was administered withou t complication. Automated exposure control was utilized for the study. A dose lowering technique wa s utilized adhering to the principles of ALARA. CT DOSE: 252.86 mGy.cm FINDINGS: No pulmonary emboli are identified. There is mild dilatation of the central pulmonary sandeep petrona. Moderate cardiomegaly is noted. The ascending aorta is ectatic. Extensive coronary artery calci fication is present. There is no pericardial effusion. No pneumothorax or pleural effusion is noted. Ground glass opacities reflect atelectasis. There is no consolidation to suggest pneumonia. There are no suspicious pulmonary nodules. No suspicious lesion or acute fractures identified within visualize d portions of the bony thorax. There is a small hiatal hernia. IMPRESSION: 1. No pulmonary emboli identified. 2. No acute process within the chest. 3. Moderate cardiomegaly and extensive coronary artery calcification. ACT 112: Negative or not required by law. Electronically signed by: Gabriel Irving M.D. 08/16/2020 12:02 PM
[2020-08-16] MEDS ORDERED: hydrALAZINE HCL 20 MG/ML VIAL IV STA (12:33)
[2020-08-16] MEDS ORDERED: POTASSIUM CHLORIDE CRTAB 20 MEQ TABCR PO STA ×2 (12:47→13:08)
[2020-08-16] MEDS ORDERED: NITROGLYCERIN SL 0.4 MG/TAB TAB SL PRN (12:50)
[2020-08-16] MEDS ORDERED: ACETAMINOPHEN 325 MG TAB PO PRN (12:50)
[2020-08-16] MEDS ORDERED: ONDANSETRON INJ 2 MG/ML 2 ML VIAL IV PRN (12:50)
[2020-08-16] MEDS ORDERED: CARBIDOPA/LEVODOPA 25/100MG TAB PO STA (13:23)
[2020-08-16] MEDS ORDERED: CLOTRIMAZOLE 10 MG TROCHE BUCCAL SCH (13:45)
--- NOTE | 2020-08-16 13:46 | History & Physical Report ---
Date of Service August 16, 2020 Assessment & Plan (1) Shortness of breath: (2) Elevated troponin: This is a 79-year-old female who has significant past medical history of CAD, HTN, HLD, prediabetes, hypothyroidism, Parkinson's disease, autonomic dysfunction secondary to Parkinson's disease, GERD, vitamin D deficiency, depression, CKD stage III, history of SDH who presents to ED with daughter at bedside secondary to shortness of breath that presented with worsening this morning. Admit to PCU consult cardiology cycle troponin, ecg repeat echo probnp 1486, appears euvolemic, slightly dry CXR/Chest CTA unremarkable r/o ACS, possibly in setting of hypertensive urgency control BP Hypokalemia give 40meq kcl x 1 now follow bmp takes daily kcl Constipation add senna S daily KUB demonstrates mod fecal retention miralax daily (3) CAD (coronary artery disease): hx of stents to RCA, LCX and Prox LAD, last 2012 Had echocardiogram 07/27/2020 which revealed EF 35%, left atrium severely enlarged, diastolic dysfunction grade 1, AV mildly calcified but no sclerosis, no pulmonary hypertension Continue atorvastatin Cardiac med secondary to orthostatic hypotension Initial troponin elevated, work-up as above (4) Hypertension: pt with hx of HTN and CAD but off cardiac meds 2/2 to orthostatic hypotension and falls in setting of autnomic dysfunction with Parkinson On midodrine pt significantly hypertensive in ED, may be exacerbated by tremors/situation received 5mg IV hydralazine hold midodrine monitor (5) Dyslipidemia: continue statin (6) Parkinson disease: continue sinemet and rasagiline (7) Hypothyroid: continue levothyroxine (8) DVT prophylaxis: SQ Heparin Dispo: PCU; case management consulted, pt follows [facility] @ home PCP: Mario DNR/DNI Pt was seen and examined in collaboration with Dr. Hansen, please see addendum History of Present Illness Chief Complaint: Shortness of breath x1 day. Primary Care Provider: Raisa Martin MD This is a 79-year-old female who has significant past medical history of CAD, HTN, HLD, prediabetes, hypothyroidism, Parkinson's disease, autonomic dysfunction secondary to Parkinson's disease, GERD, vitamin D deficiency, depression, CKD stage III, history of SDH who presents to ED with daughter at bedside secondary to shortness of breath that presented with worsening this morning. Patient has longstanding history of shortness of breath that is associated with increasing tremors in evening hours of the day. She woke up this morning at approximately 3:30 AM when lying flat on 1 pillow with shortness of breath. She sat up on edge of bed for approximately 30 minutes and symptoms improved so she laid back down. She woke up again at 6 AM feeling short of breath and urged to call EMS. When shortness of breath came on she denied any associated diaphoresis, chest pain or nausea. She has chronic lightheadedness and dizziness associated with position change secondary to Parkinson's disease and autonomic dysfunction. This causes her to be hypoten sive and therefore she falls. She did have recent fall in which she suffered an ankle injury and has been followed by Ortho. Was diagnosed with ankle strain. She came in ED today due to concern for shortness of breath present in the morning which was new for her. She admits to having nausea and dry heaves yesterday. She has been having difficulty moving bowels. She denies any recent fever, chills, sweats, syncope, chest pain, shortness of breath at rest, palpitations, nausea, abdominal pain, change in bowel or urinary habits. Her daughter is at bedside and feels that she is not herself today and that her eyes are more, "droopy." She is also wondering if this is not secondary to anxiety. Typically patient has orthostatic hypotension and all of her blood pressure medications have been stopped. She is currently taking midodrine 3 times a day. Today in ED blood pressure significantly elevated with systolic blood pressure greater than 200. She also had elevation of troponin at 0.065, but EKG revealed normal sinus rhythm without ST or T wave changes. Her CBC was unremarkable. CMP revealed sodium 135, K3.2, BUN 19, creatinine 1.92 glucose 106, proBNP 1486. Her D-dimer was elevated which prompted CTA of chest. This was negative for acute PE and acute process. She does have moderate cardiomegaly and extensive coronary artery calcification. KUB revealed nonobstructive bowel gas pattern, 2.0 cm nodular opacity at right lung base likely summation density, moderate fecal retention. In ED she did receive 500 mL IVF as well as 5 mg IV hydralazine. Allergies Allergy/AdvReac Type Severity Reaction Status Date / Time celecoxib AdvReac Intermediate GI SYMPTOMS Verified 08/16/20 11:26 hydrocodone AdvReac Unknown STOMACH Verified 08/16/20 11:26 IRRITATION Home Medications Medication Instructions Recorded Confirmed Type atorvastatin 40 mg PO HS 06/25/19 08/16/20 History carbidopa-levodopa 1 tab PO BID 06/25/19 08/16/20 History pantoprazole 40 mg PO QAM 06/25/19 08/16/20 History carbidopa-levodopa 1.5 tab PO QID 07/13/19 08/16/20 History rasagiline 1 mg PO QAM 07/13/19 08/16/20 History melatonin 5 mg PO HS PRN 01/07/20 08/16/20 History vit C-vit Q-[id number]-ytr-om-3 1 cap PO QAM 01/07/20 08/16/20 History acetaminophen [Tylenol] 650 mg PO Q4 PRN 08/16/20 08/16/20 History cetirizine [Zyrtec] 10 mg PO DAILY 08/16/20 08/16/20 History clotrimazole 10 mg PO .5 TIMES A DAY 08/16/20 08/16/20 History levothyroxine 112 mcg PO DAILY 08/16/20 08/16/20 History midodrine 2.5 mg PO TID 08/16/20 08/16/20 History potassium chloride 20 meq PO DAILY 08/16/20 08/16/20 History sertraline 100 mg PO DAILY 08/16/20 08/16/20 History sucralfate 1 g PO QID 08/16/20 08/16/20 History furosemide 20 mg PO QAM 30 Days #30 tab 08/19/20 Rx Past Med/Surg History Medical History Anxiety CAD (coronary artery disease) Status post August 2007 PCI of both the RCA and LCX with FABIOLA Status post April 2008 PCI of the mid RCA with 2 FABIOLA Status post May 2008 PCI of the proximal LAD Status post March 2013 PCI of the RCA with a FABIOLA GERD (gastroesophageal reflux disease) Hyperlipidemia Hypertension Hypothyroidism Parkinson disease Prediabetes Per records Surgical History History of ankle surgery LEFT History of appendectomy History of arthroplasty of right knee x 2 per records History of cardiac cath 08/2007, 04/2008, 2009, 2013 History of cholecystectomy Per records History of colonoscopy History of herniorrhaphy Per records History of hysterectomy History of thumb surgery Per records- right thumb Hx of angioplasty FOLLOWS [place] Family History Mother Diabetes Brother Myocardial infarction Social History Smoking Status: Never smoker Second Hand Exposure: No; Do You Dip or Chew Tobacco: No; Tobacco Cessation Education Requested by Patient: No Hx Alcohol Use: No Hx Substance Use: No Preferred Language: Wolof Communication Ability: Effective Fish Cake Maker Required: No Beliefs That Will Affect Care: None marital status: Current Living Situation: Spouse Feels Safe at Home: Yes Safety Concerns: Feels Safe At This Time Assistive Devices: Denture - Upper, Denture - Lower and Glasses Review of Systems Review of Systems: All systems reviewed & are unremarkable except as noted in HPI & below Physical Exam Physical Exam: Constitutional: WD/WN, elderly, female, vitals as above, NAD, sitting up in bed, pleasant, conversing easily, comfortable lying tremor to bilateral upper extremities Head: Normocephalic, Atraumatic Eyes: PERRL, conjunctivae normal, anicteric sclerae ENMT: external ear and nose normal, oropharynx normal Neck: trachea midline, no thyromegaly normal visual inspection Respiratory: normal respiratory effort, lungs clear to auscultation, no wheeze, rales, rhonchi. Normal insp/exp effort, no accessory muscle use Cardiovascular: RRR, no murmur, no edema Vessels: no JVD or carotid bruit Chest: normal inspection of chest Abdomen: normal bowel sounds, soft, nontender, no hepatosplenomegaly Musculoskeletal: no cyanosis or clubbing, extremities motor strength 5/5, ecchymoses to right ankle secondary to recent fall, decreased range of motion to right ankle Skin: no rashes, warm and dry normal turgor Neurologic: PERRL, EOMI, accommodation nl, no face palsy, no dysarthria CN's II-XI intact bilaterally and moves all extremities Psychiatric: A+Ox3, euthymic affect Lymphatic: no cervical or axillary lymphadenopathy : deferred Results & Data Results & Data ([facility]) Vital Signs (Past 12 Hours) Vital Signs Temp Pulse Resp BP Pulse Ox 08/16/20 12:30 66 16 178/87 H 93 08/16/20 12:00 66 19 176/91 H 98 08/16/20 11:30 65 15 188/101 H 98 08/16/20 11:00 67 18 181/94 H 97 08/16/20 10:30 66 22 185/97 H 08/16/20 10:29 94 08/16/20 10:12 64 17 213/94 H 08/16/20 10:11 36.9 C 64 21 213/94 H 94 Diagnostic Findings KUB X-Ray 08/16/20 10:28 XR chest 1V portable, XR KUB/Abdomen 1 view HISTORY: 79 years-old Female SOB acute shortness of breath with nausea and vomiting COMPARISON: Chest radiograph 01/07/2020, CT abdomen and pelvis 07/23/2019 TECHNIQUE: AP view the chest with KUB radiograph FINDINGS: CHEST: Cardiac silhouette is enlarged. No pneumothorax, pleural effusion, airspace consolidation or overt pulmonary edema. 2.0 cm nodular opacity projects over the right lung base. Degenerative changes of the shoulders and spine. KUB: Moderate fecal retention. Vascular calcifications. Nonobstructive bowel gas pattern. No definite urolith. The glottis of the pelvis. Degenerative changes of the spine, pelvis and hips. IMPRESSION: 1. No acute processes of the chest. 2. 2.0 cm nodular opacity of the right lung base is likely secondary to summation density. This could be correlated with follow-up PA and lateral views of the chest. 3. Nonobstructive bowel gas pattern. 4. Moderate fecal retention. ACT 112: Negative or not required by law. The above report was generated using voice recognition software. It may contain grammatical, syntax or spelling errors. Electronically signed by: Stewart Grullon M.D. 08/16/2020 11:03 AM Chest X-Ray 08/16/20 10:29 XR chest 1V portable, XR KUB/Abdomen 1 view HISTORY: 79 years-old Female SOB acute shortness of breath with nausea and v omiting COMPARISON: Chest radiograph 01/07/2020, CT abdomen and pelvis 07/23/2019 TECHNIQUE: AP view the chest with KUB radiograph FINDINGS: CHEST: Cardiac silhouette is enlarged. No pneumothorax, pleural effusion, airspace consolidation or overt pulmonary edema. 2.0 cm nodular opacity projects over the right lung base. Degenerative changes of the shoulders and spine. KUB: Moderate fecal retention. Vascular calcifications. Nonobstructive bowel gas pattern. No definite urolith. The glottis of the pelvis. Degenerative changes of the spine, pelvis and hips. IMPRESSION: 1. No acute processes of the chest. 2. 2.0 cm nodular opacity of the right lung base is likely secondary to summation density. This could be correlated with follow-up PA and lateral views of the chest. 3. Nonobstructive bowel gas pattern. 4. Moderate fecal retention. ACT 112: Negative or not required by law. The above report was generated using voice recognition software. It may contain grammatical, syntax or spelling errors. Electronically signed by: Stewart Grullon M.D. 08/16/2020 11:03 AM Chest CTA 08/16/20 11:08 CT ANGIOGRAPHY OF THE CHEST, PULMONARY EMBOLUS PROTOCOL CLINICAL HISTORY: Shortness of breath. Evaluate for pulmonary embolus. COMPARISON STUDY: Chest CT August 14, 2019. Chest radiograph performed earlier today. TECHNIQUE: Following IV administration of 119 mL of Optiray-320, helical axial images of the chest were obtained utilizing the pulmonary embolus protocol. Maximal intensity projections and sagittal and coronal reformats were viewed on an independent 3D workstation. IV contrast was administered without complication. Automated exposure control was utilized for the study. A dose lowering technique was utilized adhering to the principles of ALARA. CT DOSE: 252.86 mGy.cm FINDINGS: No pulmonary emboli are identified. There is mild dilatation of the central pulmonary arteries. Moderate cardiomegaly is noted. The ascending aorta is ectatic. Extensive coronary artery calcification is present. There is no pericardial effusion. No pneumothorax or pleural effusion is noted. Ground glass opacities reflect atelectasis. There is no consolidation to suggest pneumonia. There are no suspicious pulmonary nodules. No suspicious lesion or acute fractures identified within visualized portions of the bony thorax. There is a small hiatal hernia. IMPRESSION: 1. No pulmonary emboli identified. 2. No acute process within the chest. 3. Moderate cardiomegaly and extensive coronary artery calcification. ACT 112: Negative or not required by law. Electronically signed by: Gabriel Irving M.D. 08/16/2020 12:02 PM Medications Administered Discontinued Medications Hydralazine HCl (Hydralazine Hcl 20 Mg/Ml Vial) 5 mg IV NOW STA Stop: 08/16/20 12:34 Last Admin: 08/16/20 13:01 Dose: 5 mg Documented by: [id number] Sodium Chloride (Nss 1000ml) 500 mls @ 999 mls/hr IV .Q31M ONE Stop: 08/16/20 10:58 Last Infusion: 08/16/20 12:46 Dose: 0 mls/hr Documented by: [id number] Admin: 08/16/20 12:07 Dose: 999 mls/hr Documented by: [id number] Ioversol (Optiray 320 125ml) 119 ml IV ONCE ONE Stop: 08/16/20 11:42 Last Admin: 08/16/20 11:41 Dose: 119 ml Documented by: [id number] Ondansetron HCl (Ondansetron Inj 2 Mg/Ml 2 Ml Vial) 4 mg IV NOW STA Stop: 08/16/20 10:29 Last Admin: 08/16/20 12:07 Dose: 4 mg Documented by: [id number] Potassium Chloride (Potassium Chloride Crtab 20 Meq Tabcr) 40 meq PO NOW STA Stop: 08/16/20 12:48 Last Admin: 08/16/20 13:01 Dose: 20 meq Documented by: [id number] ECG Rate (beats per minute): 63 Rhythm: normal sinus COVID-19 Results Results COVID-19 Adm Lab Results: RBC 4.40 M/uL (4.2-5.4) 08/17/20 WBC 7.20 K/uL (4.8-10.8) 08/17/20 Hgb 12.7 g/dL (12.0-16.0) 08/17/20 Hct 39.1 % (37-47) 08/17/20 Plt Count 276 K/uL (130-400) 08/17/20 Neutrophils (%) (Auto) 71.1 % 08/16/20 Lymphocytes (%) (Auto) 20.3 % 08/16/20 Monocytes # (Auto) 0.47 K/uL (0.11-0.59) 08/16/20 Eosinophils # (Auto) 0.03 K/uL (0-0.5) 08/16/20 Immature Granulocyte % (Auto) 0.2 % 08/16/20 Neutrophils # (Auto) 4.34 K/uL (1.4-6.5) 08/16/20 Lymphocytes # (Auto) 1.24 K/uL (1.2-3.4) 08/16/20 Monocytes # (Auto) 0.47 K/uL (0.11-0.59) 08/16/20 Eosinophils # (Auto) 0.03 K/uL (0-0.5) 08/16/20 Basophils # (Auto) 0.01 K/uL (0-0.2) 08/16/20 Immature Granulocyte # (Auto) 0.01 K/uL (0.00-0.02) 08/16/20 Na 136 mmol/L (136-145) 08/19/20 K 4.3 mmol/L (3.5-5.1) 08/19/20 Cl 100 mmol/L (98-107) 08/19/20 CO2 33 mmol/L (21-32) H 08/19/20 Anion Gap 3.0 (3-11) 08/19/20 BUN 24 mg/dl (7-18) H 08/19/20 Creatinine 1.18 mg/dl (0.6-1.2) 08/19/20 BUN/Creatinine Ratio 20.4 (10-20) H 08/19/20 Glucose Level 111 mg/dl (70-99) H 08/19/20 Ca 9.3 mg/dl (8.5-10.1) 08/19/20 Total Bilirubin 0.9 mg/dl (0.2-1) 08/16/20 AST/SGOT 17 U/L (15-37) 08/16/20 ALT/SGPT 10 U/L (12-78) L 08/16/20 Alkaline Phosphatase 75 U/L (45-117) 08/16/20 Total Protein 7.3 gm/dl (6.4-8.2) 08/16/20 Albumin 4.3 gm/dl (3.4-5.0) 08/16/20 Globulin 3.0 gm/dl (2.5-4.0) 08/16/20 Albumin/Globulin Ratio 1.4 (0.9-2) 08/16/20 Troponin I 0.078 ng/ml (0-0.045) H* 08/17/20 AL-Lrv-N-Type Natriuretic Pep 1486 pg/ml (0-1800) 08/16/20 D-Dimer 1450 ug/L FEU (0-500) H* 08/16/20 PTT 24.5 Seconds (21.0-31.0) 08/16/20 INR 1.0 (0.9-1.1) 08/16/20 Triglycerides Level 127 mg/dl (0-150) 08/17/20 COVID-19 PCR NEGATIVE (Negative) 08/16/20 Influenza Virus Type A (PCR) Negative (Neg) 08/16/20 Influenza Virus Type B (PCR) Negative (Neg) 08/16/20 Chest X-Ray 08/16/20 Code Status & VTE Plan Code Status DNR VTE Prophylaxis Plan VTE Prophylaxis will be ordered: Yes Supervising Physician Co-Signing Physician Notes Pt was seen and examined. Agreed with Saloni exam, assessment and plan. 79-year-old female with significant past medical history of CAD, HTN, HLD, pr ediabetes, hypothyroidism, Parkinson's disease, autonomic dysfunction secondary to Parkinson's disease, GERD, vitamin D deficiency, depression, CKD stage III, history of SDH who presents to ED for SOB. Daughter at bedside is helping with the history. Pt said that this morning she woke up around 3:30 am with SOB while lying flat on a pillow. She said that SOB improved after sitting on the edge of the bed for a few minutes, then she went to lie down. She said that again she became SOB and asked her to bring her t the hospital for eval. Pt said that she developed SOB with exertion but seems to get worst lately. She denies any recent fever, chills, sweats, syncope, chest pain, palpitations, nausea, abdominal pain, change in bowel or urinary habits. Her daughter is at bedside and feels that she is not herself today and that her eyes are more, "droopy." BP elevated today in the ER with systolic above 200's Lab on admission with elevation of troponin at 0.065, K3.2, BUN 19, creatinine 1.92, proBNP 1486 and elevated D-dimer.CTA chest showed no evidence of PE. KUB showed nonobstructive bowel gas pattern, 2.0 cm nodular opacity at right lung base likely summation density, moderate fecal retention. Received IV hydralazine 5mg and gentle IVF in the ER. Will trend troponin, will get an echo. Potassium replaced. Will consult cardiology. Will consider to try a low dose IV lasix s bozena pt seems to be her symptoms are related to CHF. Will monitor BMP closely. Continue monitor closely in telemetry. MD Tyrone
[2020-08-16] MEDS ORDERED: POTASSIUM CHLORIDE 10 MEQ TABCR PO ONE (14:13)
[2020-08-16] MEDS: PANTOprazole 40 MG TAB PO SCH (14:17)
[2020-08-16] MEDS: HEPARIN SOD 5,000 UNIT/0.5 ML VIAL SQ SCH ×2 (15:40→22:12)
--- NOTE | 2020-08-16 16:04 | Electrocardiogram Report ---
Test Reason : Blood Pressure : / mmHG Vent. Rate : 063 BPM Atrial Rate : 063 BPM P-R Int : 152 ms QRS Dur : 094 ms QT Int : 448 ms P-R-T Axes : -27 -32 015 degrees QTc Int : 458 ms Normal sinus rhythm Left axis deviation Minimal voltage criteria for LVH, may be normal variant Abnormal ECG When compared with ECG of 26-JUL-2020 16:41, No significant change was found Confirmed by Ezio Catalan ([id number]) on 08/16/2020 4:04:01 PM Referred By: REFERRED SELF Confirmed By:Ezio Catalan
[2020-08-16] MEDS ORDERED: LABETALOL HCL IV 5 MG/ML 20ML IV STA (16:12)
[2020-08-16] MEDS ORDERED: ALUMINUM/MAGNESIUM SUSP 30 ML UDC PO PRN (16:25)
[2020-08-16] MEDS ORDERED: MAGNESIUM HYDROXIDE SUSP 30 ML UDC PO PRN (16:25)
[2020-08-16] MEDS ORDERED: MELATONIN 3 MG TAB PO PRN (16:38)
[2020-08-16] MEDS: POLYETHYLENE (MIRALAX) 17 GM PACK PO SCH (18:10)
[2020-08-16] MEDS: SUCRALFATE 1 GM TAB PO SCH ×2 (18:51→22:11)
[2020-08-16] MEDS: DOCUSATE SODIUM/SENNA 50/8.6MG TAB PO SCH (18:51)
[2020-08-16] MEDS: CARBIDOPA/LEVODOPA 25/100MG TAB PO SCH ×2 (18:51→22:10)
[2020-08-16] MEDS: ATORVASTATIN 40 MG TAB PO SCH (22:11)
[2020-08-16] MEDS: CARBIDOPA/LEVODOPA 50/200MG EXT REL TAB PO SCH (22:28)
[2020-08-17] MEDS: HEPARIN SOD 5,000 UNIT/0.5 ML VIAL SQ SCH ×4 (04:51→19:46)
[2020-08-17 05:51] LABS: Hematocrit (blood only) 39.1 % (37-47); Hemoglobin 12.7 g/dL (12.0-16.0); Mean Corpuscular Hemoglobin 28.9 pg (25-34); Mean Corpuscular Hgb Conc 32.5 g/dL (32-36); Mean Corpuscular Volume 88.9 fL (80-100); Mean Platelet Volume 9.7 fL (7.4-10.4); Platelet Count 276 K/uL (130-400); RDW Coefficient of Variation 14.6 % (11.5-14.5); RDW Standard Deviation 47.9 fL (36.4-46.3)
[2020-08-17 06:25] LABS: Estimated Average Glucose 128 mg/dl; Hemoglobin A1C 6.1 % (4.5-5.6)
[2020-08-17 06:35] LABS: Calcium 8.8 mg/dl (8.5-10.1); Creatinine Clr Calc Pharmacy 41.6 ml/min; Est GFR (African American) 69.5; Magnesium 2.1 mg/dl (1.8-2.4); Troponin I 0.112 ng/ml (0-0.045)
[2020-08-17] MEDS: LEVOTHYROXINE SODIUM 112 MCG TABLET PO SCH (06:46)
[2020-08-17] MEDS: CARBIDOPA/LEVODOPA 25/100MG TAB PO SCH ×4 (08:09→20:37)
[2020-08-17] MEDS: CEROVITE ADV FORMULA TAB PO SCH (08:10)
[2020-08-17] MEDS: SUCRALFATE 1 GM TAB PO SCH ×4 (08:10→20:37)
[2020-08-17] MEDS: SERTRALINE HCL 100 MG TABLET PO SCH (08:11)
[2020-08-17] MEDS: POLYETHYLENE (MIRALAX) 17 GM PACK PO SCH (08:12)
[2020-08-17] MEDS: POTASSIUM CHLORIDE CRTAB 20 MEQ TABCR PO SCH (08:12)
[2020-08-17] MEDS: DOCUSATE SODIUM/SENNA 50/8.6MG TAB PO SCH (08:13)
[2020-08-17] MEDS: CARBIDOPA/LEVODOPA 50/200MG EXT REL TAB PO SCH ×2 (08:13→20:38)
[2020-08-17] MEDS: PANTOprazole 40 MG TAB PO SCH (09:25)
[2020-08-17] MEDS: CETIRIZINE HCL 10 MG TABLET PO SCH (09:25)
[2020-08-17] MEDS ORDERED: FUROSEMIDE 20 MG in SYRINGE 0 ML IV ONE ×2 (15:00→17:51)
--- NOTE | 2020-08-17 15:16 | Electrocardiogram Report ---
Test Reason : Blood Pressure : / mmHG Vent. Rate : 072 BPM Atrial Rate : 072 BPM P-R Int : 194 ms QRS Dur : 090 ms QT Int : 414 ms P-R-T Axes : - degrees QTc Int : 453 ms Sinus rhythm with marked sinus arrhythmia Left axis deviation Moderate voltage criteria for LVH, may be normal variant Abnormal ECG When compared with ECG of 16-AUG-2020 10:44, No significant change was found Confirmed by Ezio Catalan ([id number]) on 08/17/2020 3:16:22 PM Referred By: REFERRED SELF Confirmed By:Ezio Catalan
--- NOTE | 2020-08-17 17:45 | Cardiology Consultation ---
Date of Consultation August 17, 2020 Assessment & Plan (1) SOB (shortness of breath): (2) Elevated troponin: EKG 08/16 reveals sinus rhythm at 63 bpm without significant repolarization changes. Repeat study today is relatively unchanged. Troponin I mildly elevated, most recent measurement of 0.078, this is relatively similar to past measurements has obtained when she was hospitalized in July [address] of the chest revealed no pulmonary embolism, no interstitial edema. Noted finding of diffuse coronary artery calcification. I think the question is whether or not her recent complaint of dyspnea is an anginal equivalent. I had most recently seen her as an outpatient in June 2019 at which time she described stable cardiac signs and symptoms with no subjective dyspnea. Per review of her outpatient record, she has recently complained of dyspnea, and an outpatient echocardiogram was performed last month. Of note, she has Parkinson's disease, and has had recent issues with apparent symptoms concerning for orthostatic hypotension and therefore midodrine was initiated in June,, with noted elevated supine blood pressures here in the hospital. Her echocardiogram this admission revealed moderate concentric left ventricular hypertrophy, with no left ventricular regional wall motion abnormalities, and normal LVEF of 55%. Moderate left atrial dilatation noted, along with grade 1 diastolic dysfunction. As noted she has a chronic, mild, flat elevation in her troponin. Undoubtedly, she has underlying coronary heart disease based on her past interventional history. Would recommend a trial of diuretic therapy for blood pressure control, and treatment of diastolic dysfunction. She had previously been on furosemide 20 mg on an as-needed basis dating back to 2015 but it was discontinued then. Continue to hold midodrine while in the hospital. Blood pressures are running moderately elevated, most recent measurement 167/79. Will start furosemide . History of Present Illness Attending Physician: Tiffanie Hansen MD History of Present Illness Jo Serrano is an 79 year old female seen in cardiology consultation per the request of Saloni Shanks PA-C [facility] of shortness of breath and mild elevation in troponin. Patient presents with progressive dyspnea. Cardiac Problem List: 1.ASCVD 1.Status postApril 2007 PCI of both the RCA and LCX with FABIOLA 2.Status postDecember 2007 PCI of the mid RCA with 2 FABIOLA 3.Status postJanuary 2008 PCI of the proximal LAD 4.Status postNovember 2012 PCI of the RCA with a FABIOLA 2.Hypertension 3.Dyslipidemia Allergies Allergy/AdvReac Type Severity Reaction Status Date / Time celecoxib AdvReac Intermediate GI SYMPTOMS Verified 08/16/20 11:26 hydrocodone AdvReac Unknown STOMACH Verified 08/16/20 11:26 IRRITATION Home Medications Medication Instructions Recorded Confirmed Type atorvastatin 40 mg PO HS 06/25/19 08/16/20 History carbidopa-levodopa 1 tab PO BID 06/25/19 08/16/20 History pantoprazole 40 mg PO QAM 06/25/19 08/16/20 History carbidopa-levodopa 1.5 tab PO QID 07/13/19 08/16/20 History rasagiline 1 mg PO QAM 07/13/19 08/16/20 History melatonin 5 mg PO HS PRN 01/07/20 08/16/20 History vit C-vit [id number] 1 cap PO QAM 01/07/20 08/16/20 History [Ocuvite] acetaminophen [Tylenol] 650 mg PO Q4 PRN 08/16/20 08/16/20 History cetirizine [Zyrtec] 10 mg PO DAILY 08/16/20 08/16/20 History clotrimazole 10 mg PO .5 TIMES A DAY 08/16/20 08/16/20 History levothyroxine 112 mcg PO DAILY 08/16/20 08/16/20 History midodrine 2.5 mg PO TID 08/16/20 08/16/20 History potassium chloride 20 meq PO DAILY 08/16/20 08/16/20 History sertraline 100 mg PO DAILY 08/16/20 08/16/20 History sucralfate 1 g PO QID 08/16/20 08/16/20 History Patient History Medical History Anxiety CAD (coronary artery disease) Status post August 2007 PCI of both the RCA and LCX with FABIOLA Status post April 2008 PCI of the mid RCA with 2 FABIOLA Status post May 2008 PCI of the proximal LAD Status post March 2013 PCI of the RCA with a FABIOLA GERD (gastroesophageal reflux disease) Hyperlipidemia Hypertension Hypothyroidism Parkinson disease Prediabetes Per records Surgical History History of ankle surgery LEFT History of appendectomy History of arthroplasty of right knee x 2 per records History of cardiac cath 08/2007, 04/2008, 2008, 2012 History of cholecystectomy Per records History of colonoscopy History of herniorrhaphy Per records History of hysterectomy History of thumb surgery Per records- right thumb Hx of angioplasty [place] Family History Mother Diabetes Brother Myocardial infarction Social History Smoking Status: Never smoker Second Hand Exposure: No; Do You Dip or Chew Tobacco: No; Tobacco Cessation Education Requested by Patient: No Hx Alcohol Use: No Hx Substance Use: No Preferred Language: Divehi Communication Ability: Effective 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 Beliefs That Will Affect Care: None marital status: Current Living Situation: Spouse Feels Safe at Home: Yes Safety Concerns: Feels Safe At This Time Assistive Devices: Denture - Upper, Denture - Lower and Glasses Review of Systems Review of Systems: All systems reviewed & are unremarkable except as noted in HPI & below Physical Exam Physical Exam: Temp Pulse Resp BP Pulse Ox 36.7 C 74 18 167/79 H 96 08/17/20 16:34 08/17/20 16:34 08/17/20 16:34 08/17/20 16:34 08/17/20 16:34 Constitutional: WD/WN, vitals as above Respiratory: Mildly decreased breath sounds the bases Cardiovascular: RRR, no murmur, no edema Gastrointestinal (Abdomen): normal bowel sounds, soft, nontender, no hepatosplenomegaly Neurologic: Tremor consistent with history of Parkinson's Results & Data ([facility]) Vital Signs (Past 12 Hours) Vital Signs Temp Pulse Pulse Resp BP Pulse Ox 08/17/20 16:34 36.7 C 74 18 167/79 H 96 08/17/20 15:46 74 08/17/20 10:53 36.5 C 86 18 116/69 95 08/17/20 10:10 71 08/17/20 07:35 36.6 C 67 17 168/87 H 94 Laboratory Results Cardiac Enzymes 08/16/20 08/17/20 08/17/20 Range/Units 21:38 04:53 10:13 Troponin I 0.091 H* 0.112 H* 0.078 H* (0-0.045) ng/ml Lipids 08/17/20 Range/Units 04:53 Triglycerides 127 (0-150) mg/dl Cholesterol 135 (0-200) mg/dl HDL Cholesterol 56 mg/dl Cholesterol/HDL Ratio 2 CBC 08/17/20 Range/Units 04:53 WBC 7.20 (4.8-10.8) K/uL RBC 4.40 (4.2-5.4) M/uL Hgb 12.7 (12.0-16.0) g/dL Hct 39.1 (37-47) % Plt Count 276 (130-400) K/uL Comprehensive Metabolic Panel 08/17/20 Range/Units 04:53 Sodium 138 (136-145) mmol/L Potassium 4.0 D (3.5-5.1) mmol/L Chloride 104 (98-107) mmol/L Carbon Dioxide 32 (21-32) mmol/L BUN 16 (7-18) mg/dl Creatinine 0.90 (0.6-1.2) mg/dl Glucose 94 (70-99) mg/dl Calcium 8.8 (8.5-10.1) mg/dl Intake and Output 08/17/20 08/17/20 08/17/20 06:59 14:59 22:59 Intake Total 200 / 700 Balance 200 / 700 Intake: Oral 200 / 200 Other: # Unmeasured Voids 1 Weight 61.2 kg Weight Measurement Method Standing Scale
--- NOTE | 2020-08-17 18:49 | Hospitalist Progress Note ---
Date of Service August 17, 2020 Assessment & Plan (1) Shortness of breath: Present on admission with SOB on exertion COVID 19 negative CXR showed no acute processes of the chest. 2.0 cm nodular opacity of the right lung base is likely secondary to summation density. CTA chest showed no pulmonary emboli identified. No acute process within the chest. ECHO showed moderate concentric left ventricular hypertrophy. Left ventricular wall motion is normal. Left atrial is moderately dilated. ejection fraction 55% cardiology on board that recommended to treat for diastolic dysfunction Will do a trial of lasix Monitor BMP while on Lasix (2) Elevated troponin: Troponin on admission elevated, than peak to 0.1, now trending down to 0.078 EKG showed no acute ischemic changes Cardiology on board denies any chest pain Continue monitor closely Hypokalemia K on admission 3.2 K 4 today Continue monitor electrolytes while on Lasix Constipation KUB demonstrates mod fecal retention Continue miralax daily (3) CAD (coronary artery disease): hx of stents to RCA, LCX and Prox LAD, last 2012 Had echocardiogram 07/27/2020 which revealed EF 35%, left atrium severely enlarged, diastolic dysfunction grade 1, AV mildly calcified but no sclerosis, no pulmonary hypertension Continue atorvastatin (4) Hypertension: pt with hx of HTN and CAD but off cardiac meds 2/2 to orthostatic hypotension and falls in setting of autonomic dysfunction with Parkinson Continue to hold mildodrine BP improves Continue Lasix for now Continue monitor BP (5) Dyslipidemia: continue statin (6) Parkinson disease: continue sinemet and rasagiline (7) Hypothyroid: continue levothyroxine (8) DVT prophylaxis: SQ Heparin DNR/DNI Admission and Anticipated Discharge Date Admission Date: August 16, 2020 Subjective Pt was seen and examined for follow up of SOB Lying in bed with no distress Pt said that her breathing is ok as long as she does not exert herself Pt said that she feels ok for now Denies any chest pain, palpitation, dizziness and SOB Review of Systems Review of Systems: All systems reviewed & are unremarkable except as noted in Subjective Physical Exam Physical Exam: General- No acute distress Head- atraumatic Eyes- PERRL, EOMI, ENT- oropharynx clear Neck- supple, no JVD Lungs- clear to auscultation Heart- regular rhythm; no murmur Abdomen- normal bowel sounds, soft, nontender Extremities- no calf tenderness Neuro- alert, oriented, +tremors +PERRL, EOMI Skin- warm & dry Results & Data Results & Data ([facility]) Vital Signs (Past 12 Hours) Vital Signs Temp Pulse Pulse Resp BP Pulse Ox 08/17/20 16:34 36.7 C 74 18 167/79 H 96 08/17/20 15:46 74 08/17/20 10:53 36.5 C 86 18 116/69 95 08/17/20 10:10 71 08/17/20 07:35 36.6 C 67 17 168/87 H 94
[2020-08-17] MEDS: ATORVASTATIN 40 MG TAB PO SCH (20:38)
[2020-08-18] MEDS: HEPARIN SOD 5,000 UNIT/0.5 ML VIAL SQ SCH ×4 (04:10→23:35)
[2020-08-18] MEDS: LEVOTHYROXINE SODIUM 112 MCG TABLET PO SCH (04:10)
[2020-08-18] MEDS ORDERED: COUGH DROP (SUGAR FREE) LOZ 24 LOZ/1 BOX BUCCAL ONE (05:48)
[2020-08-18 07:29] LABS: BUN Creatinine Ratio 18.3 (10-20); Calcium 9.5 mg/dl (8.5-10.1); Creatinine Clr Calc Pharmacy 33.3 ml/min; Est GFR (African American) 55.8; Est GFR (Non-African American) 48.1; Potassium 4.4 mmol/L (3.5-5.1)
[2020-08-18] MEDS ORDERED: FUROSEMIDE 20 MG in SYRINGE 0 ML IV SCH (09:00)
[2020-08-18] MEDS: SERTRALINE HCL 100 MG TABLET PO SCH (09:29)
[2020-08-18] MEDS: CEROVITE ADV FORMULA TAB PO SCH (09:30)
[2020-08-18] MEDS: PANTOprazole 40 MG TAB PO SCH (09:30)
[2020-08-18] MEDS: POTASSIUM CHLORIDE CRTAB 20 MEQ TABCR PO SCH (09:30)
[2020-08-18] MEDS: SUCRALFATE 1 GM TAB PO SCH ×4 (09:30→20:47)
[2020-08-18] MEDS: CETIRIZINE HCL 10 MG TABLET PO SCH (09:30)
[2020-08-18] MEDS: CARBIDOPA/LEVODOPA 50/200MG EXT REL TAB PO SCH ×2 (09:31→20:47)
[2020-08-18] MEDS: POLYETHYLENE (MIRALAX) 17 GM PACK PO SCH (09:31)
[2020-08-18] MEDS: CARBIDOPA/LEVODOPA 25/100MG TAB PO SCH ×4 (09:32→20:47)
[2020-08-18] MEDS: DOCUSATE SODIUM/SENNA 50/8.6MG TAB PO SCH (09:33)
--- NOTE | 2020-08-18 15:12 | Cardiology Progress Note ---
Date of Service August 18, 2020 Assessment & Plan (1) SOB (shortness of breath): (2) Elevated troponin: (3) Diastolic dysfunction: (4) Parkinson disease: Suspect underlying autonomic dysfunction related to her Parkinson's. She is off of midodrine. Blood pressures are stable while supine. Mild, flat, troponin elevation, in the setting of known chronic coronary heart disease, but not convinced that her dyspnea is an anginal equivalent, and recommend diuretic diastolic dysfunction. Her intake and output measurements are inaccurate overnight. Transition to oral furosemide. DVT prophylaxis: Continue subcutaneous heparin. Admission and Anticipated Discharge Date Admission Date: August 18, 2020 Subjective Patient seen in follow-up. Notes shortness of breath recently. No acute symptoms. Telemetry reveals sinus rhythm in the range of 70 to 80 bpm. Physical Exam Physical Exam: Temp Pulse Resp BP Pulse Ox 36.6 C 72 19 135/79 97 08/18/20 12:17 08/18/20 12:17 08/18/20 12:17 08/18/20 12:17 08/18/20 12:17 Constitutional: WD/WN, vitals as above Respiratory: normal respiratory effort, lungs clear to auscultation Cardiovascular: RRR, no murmur, no edema Gastrointestinal (Abdomen): normal bowel sounds, soft, nontender, no hepatosplenomegaly Neurologic: PERRL, EOMI, accommodation nl, no face palsy, no dysarthria Results & Data ([facility]) Vital Signs (Past 12 Hours) Vital Signs Temp Pulse Pulse Resp BP BP Pulse Ox 08/18/20 12:17 36.6 C 72 19 135/79 97 08/18/20 11:23 78 08/18/20 07:50 36.6 C 73 18 161/85 H 94 08/18/20 05:45 80 142/84 H 94 08/18/20 04:04 105 H 87/59 L 08/18/20 04:00 37.0 C 91 H 18 107/72 94 Laboratory Results Comprehensive Metabolic Panel 08/18/20 Range/Units 06:48 Sodium 135 L (136-145) mmol/L Potassium 4.4 (3.5-5.1) mmol/L Chloride 100 (98-107) mmol/L Carbon Dioxide 31 (21-32) mmol/L BUN 20 H (7-18) mg/dl Creatinine 1.08 (0.6-1.2) mg/dl Glucose 112 H (70-99) mg/dl Calcium 9.5 (8.5-10.1) mg/dl Intake and Output 08/18/20 08/18/20 08/18/20 06:59 14:59 22:59 Intake Total 240 / 240 490 / 490 Balance 240 / 240 490 / 490 Intake: Oral 240 / 240 490 / 490 Other: # Unmeasured Voids 2 3 Weight 61 kg Weight Measurement Method Standing Scale
--- NOTE | 2020-08-18 17:24 | Hospitalist Progress Note ---
Date of Service August 18, 2020 Assessment & Plan (1) Shortness of breath: Present on admission with SOB on exertion COVID 19 negative CXR showed no acute processes of the chest. 2.0 cm nodular opacity of the right lung base is likely secondary to summation density. CTA chest showed no pulmonary emboli identified. No acute process within the chest. ECHO showed moderate concentric left ventricular hypertrophy. Left ventricular wall motion is normal. Left atrial is moderately dilated. ejection fraction 55% cardiology on board that recommended to treat for diastolic dysfunction IV lasix was transition to PO lasix 20mg daily Continue monitor BMP (2) Elevated troponin: Troponin on admission elevated, than peak to 0.1, now trending down to 0.078 EKG showed no acute ischemic changes Cardiology on board denies any chest pain Continue monitor closely Hypokalemia K on admission 3.2 K 4 today Continue monitor electrolytes while on Lasix Constipation KUB demonstrates mod fecal retention Continue miralax daily (3) CAD (coronary artery disease): hx of stents to RCA, LCX and Prox LAD, last 2012 Had echocardiogram 07/27/2020 which revealed EF 35%, left atrium severely enlarged, diastolic dysfunction grade 1, AV mildly calcified but no sclerosis, no pulmonary hypertension Continue atorvastatin (4) Hypertension: pt with hx of HTN and CAD but off cardiac meds 2/2 to orthostatic hypotension and falls in setting of autonomic dysfunction with Parkinson Continue to hold mildodrine BP improves Continue Lasix for now Continue monitor BP (5) Dyslipidemia: continue statin (6) Parkinson disease: continue sinemet and rasagiline (7) Hypothyroid: continue levothyroxine (8) DVT prophylaxis: SQ Heparin DNR/DNI Admission and Anticipated Discharge Date Admission Date: August 18, 2020 Subjective Pt was seen and examined for follow up of SOB Lying in bed with no distress. Pt said that this morning that she had post nasal drip. She said that she feels much better Called the daughter Kacie and her to provide with updates, no one answered (I called also yesterday ) left a brief VM for her to call back Denies any chest pain, palpitation, dizziness and SOB Review of Systems Review of Systems: All systems reviewed & are unremarkable except as noted in Subjective Physical Exam Physical Exam: General- No acute distress Head- atraumatic Eyes- PERRL, EOMI, ENT- oropharynx clear Neck- supple, no JVD Lungs- clear to auscultation Heart- regular rhythm; no murmur Abdomen- normal bowel sounds, soft, nontender Extremities- no calf tenderness Neuro- alert, oriented, +tremors +PERRL, EOMI Skin- warm & dry Results & Data Results & Data ([facility]) Vital Signs (Past 12 Hours) Vital Signs Temp Pulse Pulse Resp BP BP Pulse Ox 08/18/20 15:46 36.9 C 76 17 155/85 H 98 08/18/20 12:17 36.6 C 72 19 135/79 97 08/18/20 11:23 78 08/18/20 07:50 36.6 C 73 18 161/85 H 94 08/18/20 05:45 80 142/84 H 94
[2020-08-18] MEDS: ATORVASTATIN 40 MG TAB PO SCH (20:47)
[2020-08-19] MEDS: LEVOTHYROXINE SODIUM 112 MCG TABLET PO SCH (05:49)
[2020-08-19 07:30] LABS: BUN Creatinine Ratio 20.4 (10-20); Calcium 9.3 mg/dl (8.5-10.1); Creatinine Clr Calc Pharmacy 30.6 ml/min; Est GFR (African American) 50.1; Est GFR (Non-African American) 43.2; Potassium 4.3 mmol/L (3.5-5.1)
[2020-08-19] MEDS: SUCRALFATE 1 GM TAB PO SCH ×2 (08:22→13:54)
[2020-08-19] MEDS: CARBIDOPA/LEVODOPA 25/100MG TAB PO SCH ×2 (08:22→13:54)
[2020-08-19] MEDS: CETIRIZINE HCL 10 MG TABLET PO SCH (08:23)
[2020-08-19] MEDS: POTASSIUM CHLORIDE CRTAB 20 MEQ TABCR PO SCH (08:23)
[2020-08-19] MEDS: DOCUSATE SODIUM/SENNA 50/8.6MG TAB PO SCH (08:23)
[2020-08-19] MEDS: PANTOprazole 40 MG TAB PO SCH (08:23)
[2020-08-19] MEDS: POLYETHYLENE (MIRALAX) 17 GM PACK PO SCH (08:23)
[2020-08-19] MEDS: SERTRALINE HCL 100 MG TABLET PO SCH (08:23)
[2020-08-19] MEDS: CEROVITE ADV FORMULA TAB PO SCH (08:23)
[2020-08-19] MEDS: CARBIDOPA/LEVODOPA 50/200MG EXT REL TAB PO SCH (08:24)
[2020-08-19] MEDS ORDERED: FUROSEMIDE 20 MG TAB PO SCH (09:00)
[2020-08-19] MEDS: HEPARIN SOD 5,000 UNIT/0.5 ML VIAL SQ SCH (13:55)
--- NOTE | 2020-08-19 14:13 | Discharge Summary ---
Date of Service August 19, 2020 Admission HPI Per Admitting Provider Chief Complaint: Shortness of breath x1 day. This is a 79-year-old female who has significant past medical history of CAD, HTN, HLD, prediabetes, hypothyroidism, Parkinson's disease, autonomic dysfunction secondary to Parkinson's disease, GERD, vitamin D deficiency, depression, CKD stage III, history of SDH who presents to ED with daughter at bedside secondary to shortness of breath that presented with worsening this morning. Patient has longstanding history of shortness of breath that is associated with increasing tremors in evening hours of the day. She woke up this morning at approximately 3:30 AM when lying flat on 1 pillow with shortness of breath. She sat up on edge of bed for approximately 30 minutes and symptoms improved so she laid back down. She woke up again at 6 AM feeling short of breath and urged to call EMS. When shortness of breath came on she denied any associated diaphoresis, chest pain or nausea. She has chronic lightheadedness and dizziness associated with position change secondary to Parkinson's disease and autonomic dysfunction. This causes her to be hypotensive and therefore she falls. She did have recent fall in which she suffered an ankle injury and has been followed by Ortho. Was diagnosed with ankle strain. She came in ED today due to concern for shortness of breath present in the morning which was new for her. She admits to having nausea and dry heaves yesterday. She has been having difficulty moving bowels. She denies any recent fever, chills, sweats, syncope, chest pain, shortness of breath at rest, palpitations, nausea, abdominal pain, change in bowel or urinary habits. Her daughter is at bedside and feels that she is not herself today and that her eyes are more, "droopy." She is also wondering if this is not secondary to anxiety. Typically patient has orthostatic hypotension and all of her blood pressure medications have been stopped. She is currently taking midodrine 3 times a day. Today in ED blood pressure significantly elevated with systolic blood pressure greater than 200. She also had elevation of troponin at 0.065, but EKG revealed normal sinus rhythm without ST or T wave changes. Her CBC was unremarkable. CMP revealed sodium 135, K3.2, BUN 19, creatinine 1.92 glucose 106, proBNP 1486. Her D-dimer was elevated which prompted CTA of chest. This was negative for acute PE and acute process. She does have moderate cardiomegaly and extensive coronary artery calcification. KUB revealed nonobstructive bowel gas pattern, 2.0 cm nodular opacity at right lung base likely summation density, moderate fecal retention. In ED she did receive 500 mL IVF as well as 5 mg IV hydralazine. Admission Exam Per Admitting Provider Constitutional: WD/WN, elderly, female, vitals as above, NAD, sitting up in bed, pleasant, conversing easily, comfortable lying tremor to bilateral upper extremities Head: Normocephalic, Atraumatic Eyes: PERRL, conjunctivae normal, anicteric sclerae ENMT: external ear and nose normal, oropharynx normal Neck: trachea midline, no thyromegaly normal visual inspection Respiratory: normal respiratory effort, lungs clear to auscultation, no wheeze, rales, rhonchi. Normal insp/exp effort, no accessory muscle use Cardiovascular: RRR, no murmur, no edema Vessels: no JVD or carotid bruit Chest: normal inspection of chest Abdomen: normal bowel sounds, soft, nontender, no hepatosplenomegaly Musculoskeletal: no cyanosis or clubbing, extremities motor strength 5/5, ecchymoses to right ankle secondary to recent fall, decreased range of motion to right ankle Skin: no rashes, warm and dry normal turgor Neurologic: PERRL, EOMI, accommodation nl, no face palsy, no dysarthria CN's II-XI intact bilaterally and moves all extremities Psychiatric: A+Ox3, euthymic affect Lymphatic: no cervical or axillary lymphadenopathy : deferred Principal Diagnosis Shortness of breath: Elevated troponin: Hypokalemia Constipation CAD (coronary artery disease): Hypertension: Dyslipidemia: Parkinson disease: Hypothyroidism Discharge Exam General- No acute distress Head- atraumatic Eyes- PERRL, EOMI, ENT- oropharynx clear Neck- supple, no JVD Lungs- clear to auscultation Heart- regular rhythm; no murmur Abdomen- normal bowel sounds, soft, nontender Extremities- no calf tenderness Neuro- alert, oriented, +tremors +PERRL, EOMI Skin- warm & dry Discharge Data Allergies Allergy/AdvReac Type Severity Reaction Status Date / Time celecoxib AdvReac Intermediate GI SYMPTOMS Verified 08/16/20 11:26 hydrocodone AdvReac Unknown STOMACH Verified 08/16/20 11:26 IRRITATION Consultations 08/16/20 12:35 ED Decision to Admit Stat 08/16/20 13:37 Consult Cardiology Routine Ordered Studies 08/16/20 11:08 CT angio chest PE protocol Stat CT ANGIOGRAPHY OF THE CHEST, PULMONARY EMBOLUS PROTOCOL CLINICAL HISTORY: Shortness of breath. Evaluate for pulmonary embolus. COMPARISON STUDY: Chest CT August 14, 2019. Chest radiograph performed earlier today. TECHNIQUE: Following IV administration of 119 mL of Optiray-320, helical axial images of the chest were obtained utilizing the pulmonary embolus protocol. Maximal intensity projections and sagittal and coronal reformats were viewed on an independent 3D workstation. IV contrast was administered without complication. Automated exposure control was utilized for the study. A dose lowering technique was utilized adhering to the principles of ALARA. CT DOSE: 252.86 mGy.cm FINDINGS: No pulmonary emboli are identified. There is mild dilatation of the central pulmonary arteries. Moderate cardiomegaly is noted. The ascending aorta is ectatic. Extensive coronary artery calcification is present. There is no pericardial effusion. No pneumothorax or pleural effusion is noted. Ground glass opacities reflect atelectasis. There is no consolidation to suggest pneumonia. There are no suspicious pulmonary nodules. No suspicious lesion or acute fractures identified within visualized portions of the bony thorax. There is a small hiatal hernia. IMPRESSION: 1. No pulmonary emboli identified. 2. No acute process within the chest. 3. Moderate cardiomegaly and extensive coronary artery calcification. ACT 112: Negative or not required by law. Electronically signed by: Gabriel Irving M.D. 08/16/2020 12:02 PM Dictated: 08/16/20 1155Transcribed: 08/16/20 1155 XR chest 1V portable, XR KUB/Abdomen 1 view HISTORY: 79 years-old Female SOB acute shortness of breath with nausea and vomiting COMPARISON: Chest radiograph 01/07/2020, CT abdomen and pelvis 07/23/2019 TECHNIQUE: AP view the chest with KUB radiograph FINDINGS: CHEST: Cardiac silhouette is enlarged. No pneumothorax, pleural effusion, airspace consolidation or overt pulmonary edema. 2.0 cm nodular opacity projects over the right lung base. Degenerative changes of the shoulders and spine. KUB: Moderate fecal retention. Vascular calcifications. Nonobstructive bowel gas pattern. No definite urolith. The glottis of the pelvis. Degenerative changes of the spine, pelvis and hips. IMPRESSION: 1. No acute processes of the chest. 2. 2.0 cm nodular opacity of the right lung base is likely secondary to summation density. This could be correlated with follow-up PA and lateral views of the chest. 3. Nonobstructive bowel gas pattern. 4. Moderate fecal retention. ACT 112: Negative or not required by law. The above report was generated using voice recognition software. It may contain grammatical, syntax or spelling errors. Electronically signed by: Stewart Grullon M.D. 08/16/2020 11:03 AM Dictated: 08/16/20 1059Transcribed: 08/16/20 105 XR chest 1V portable, XR KUB/Abdomen 1 view HISTORY: 79 years-old Female SOB acute shortness of breath with nausea and vomiting COMPARISON: Chest radiograph 01/07/2020, CT abdomen and pelvis 07/23/2019 TECHNIQUE: AP view the chest with KUB radiograph FINDINGS: CHEST: Cardiac silhouette is enlarged. No pneumothorax, pleural effusion, airspace consolidation or overt pulmonary edema. 2.0 cm nodular opacity projects over the right lung base. Degenerative changes of the shoulders and spine. KUB: Moderate fecal retention. Vascular calcifications. Nonobstructive bowel gas pattern. No definite urolith. The glottis of the pelvis. Degenerative changes of the spine, pelvis and hips. IMPRESSION: 1. No acute processes of the chest. 2. 2.0 cm nodular opacity of the right lung base is likely secondary to summa tion density. This could be correlated with follow-up PA and lateral views of the chest. 3. Nonobstructive bowel gas pattern. 4. Moderate fecal retention. ACT 112: Negative or not required by law. The above report was generated using voice recognition software. It may contain grammatical, syntax or spelling errors. Electronically signed by: Stewart Grullon M.D. 08/16/2020 11:03 AM Dictated: 08/16/20 105Transcribed: 08/16/20 105 Hospital Course (1) Shortness of breath: Present on admission with SOB on exertion COVID 19 negative CXR showed no acute processes of the chest. 2.0 cm nodular opacity of the right lung base is likely secondary to summation density. CTA chest showed no pulmonary emboli identified. No acute process within the chest. ECHO showed moderate concentric left ventricular hypertrophy. Left ventricular wall motion is normal. Left atrial is moderately dilated. ejection fraction 55% cardiology on board that recommended to treat for diastolic dysfunction IV lasix was transition to PO lasix 20mg daily Continue monitor BMP (2) Elevated troponin: Troponin on admission elevated, than peak to 0.1, now trending down to 0.078 EKG showed no acute ischemic changes Cardiology on board denies any chest pain Continue monitor closely Hypokalemia K on admission 3.2 K 4 today Continue monitor electrolytes while on Lasix Constipation KUB demonstrates mod fecal retention Continue miralax daily (3) CAD (coronary artery disease): hx of stents to RCA, LCX and Prox LAD, last 2012 Had echocardiogram 07/27/2020 which revealed EF 35%, left atrium severely enlarged, diastolic dysfunction grade 1, AV mildly calcified but no sclerosis, no pulmonary hypertension Continue atorvastatin (4) Hypertension: pt with hx of HTN and CAD but off cardiac meds 2/2 to orthostatic hypotension and falls in setting of autonomic dysfunction with Parkinson Continue to hold mildodrine BP improves Continue Lasix for now Continue monitor BP (5) Dyslipidemia: continue statin (6) Parkinson disease: continue sinemet and rasagiline (7) Hypothyroid: continue levothyroxine (8) DVT prophylaxis: SQ Heparin DNR/DNI Total Time Total Time Spent Total Time Spent (In Minutes): 35 minutes Total Time Includes: Examination of the Patient, Discharge Planning, Medication Reconciliation, Communication With Other Providers and Other Discharge Plan Discharge Items Patient Disposition: Home - Home Health Services Reason For Visit: SOB, ELEVATED TROPONIN Discharge Diagnosis: Shortness of breath: Elevated troponin: Hypokalemia Constipation CAD (coronary artery disease): Hypertension: Dyslipidemia: Parkinson disease: HypothyroidISM Condition on Discharge: Fair Activity: Resume your previous activity Non-emergency contact: Primary Care Provider Call non-emergency contact if: you have any medication questions Follow-up/Referrals: Raisa Martin MD [Primary Care Provider] - Diet: Heart Healthy Addtl Attending Provider Instructions: Follow up with your primary care provider Dr. Rae (Dr. Martin's colleague) on 08/25 @ 11:50 AM Continue physical and occupational therapy Check BMP in 1 week to monitor your electrolytes and renal function Continue monitor your blood pressure Hold Midodrine for now, but if your blood pressure start to run low your physician will instruct you to resume it Fall precaution (Please remember to get up slowly when sitting or supine to decrease the risk of falling due to dizziness ) Use your walker to ambulate Seek medical attention if your shortness reoccurs Pending Studies at Discharge: No Stand-Alone Forms: [facility], Smoking Cessation Medications and DC Order Prescriptions: New furosemide 20 mg Tablet 20 mg PO QAM 30 Days Qty: 30 RF: 0 Continued atorvastatin 40 mg Tablet 40 mg PO HS RF: 0 carbidopa-levodopa 50-200 mg Tablet Extended Release 1 tab PO BID RF: 0 pantoprazole 40 mg Tablet,Delayed Release (Dr/Ec) 40 mg PO QAM RF: 0 carbidopa-levodopa 25-100 mg Tablet 1.5 tab PO QID RF: 0 rasagiline 1 mg tablet 1 mg PO QAM RF: 0 melatonin 5 mg Tablet 5 mg PO HS PRN (Reason: Sleep) RF: 0 vit C-vit I-gzdatr-pio-om-3 [id number] cu-lnje-ja-mg Capsule 1 cap PO QAM RF: 0 clotrimazole 10 mg romario 10 mg PO .5 TIMES A DAY RF: 0 acetaminophen [Tylenol] 325 mg Tablet 650 mg PO Q4 PRN (Reason: Fever Or Pain) RF: 0 cetirizine [Zyrtec] 10 mg Tablet 10 mg PO DAILY RF: 0 sucralfate 1 gram tablet 1 g PO QID RF: 0 sertraline 100 mg tablet 100 mg PO DAILY RF: 0 potassium chloride 20 mEq tablet,ER particles/crystals 20 meq PO DAILY RF: 0 levothyroxine 112 mcg tablet 112 mcg PO DAILY RF: 0 midodrine 2.5 mg Tablet 2.5 mg PO TID RF: 0 Discharge Orders: Discharge Order (Routine); Ordered 08/19/20 Ordered By: Tiffanie Anguiano/Other Patient Handouts: Prediabetes, Hypotension Dc, Understanding Orthostatic Hypotension, Furosemide tablets, A1C Admission Data Admit Date/Time: 08/16/20 12:50 Attending Provider: Tiffanie Hansen Admit Provider: Tiffanie Hansen Primary Care Provider: Raisa Martin Other Providers: Tiffanie Hansen ; Jacoby Baldwin Other Interventions: Discharge Summary Assessment (RN) Last Done: 08/19/20 14:42
--- NOTE | 2020-08-23 12:37 | Coding Query ---
CODING QUERY To promote full compliance with coding requirements relating to patient care, provider participation is requested in all cases of marine habitat resource specialist uncertainty. Please assist us with the question(s) below: Coding Question(s): 1. Please specify below, the most likely etiology of the Shortness Of Breath that was treated during this admission. ( x ) most likely etiology is Diastolic Dysfunction, Unspecified ( ) most likely etiology is Diastolic Dysfunction, Specified - Please Specify ( ) most likely etiology is Other: Please Specify ( ) most likely etiology is Unknown 2. There is documentation of Parkinson's Disease and documentation of orthostatic hypotension and falls in setting of autonomic dysfunction with Parkinson. Please specify below. ( ) This is Parkinsonism with neurogenic orthostatic hypotension ( ) The Orthostatic Hypotension is not due to Parkinson's with neurogenic orthostatic hypotension ( ) Other: Please Specify Physician's Response(s): Thank you Ольга Roldan Principal Diagnosis: "that condition established after study, to be chiefly responsible for occasioning the admission of the patient to the hospital for care." Co-Existing Principal Diagnosis: "when two or more diagnoses equally meet the criteria for principal diagnosis as determined by the circumstances of admission, diagnostic work up, and/or therapy provided, and the Alphabetic Index, Tabular List, or another coding guideline does not provide sequencing direction, any one of the diagnoses may be sequenced first." "When the physician has documented what appears to be a current diagnosis in the body of the record, but has not included the diagnosis in the final diagnostic statement, the physician should be asked whether the diagnosis should be added." ([facility] 2 QTR90. p3-4) DEVENDRA
--- NOTE | 2020-09-05 07:49 | Coding Query ---
CODING QUERY To promote full compliance with coding requirements relating to patient care, provider participation is requested in all cases of debt recovery officer uncertainty. Please assist us with the question(s) below: Coding Question(s): This query was included with previous query and had not been answered. There is documentation of Parkinson's Disease and documentation of orthostatic hypotension and falls in setting of autonomic dysfunction with Parkinson. Please specify below. ( ) This is Parkinsonism with neurogenic orthostatic hypotension (x ) The Orthostatic Hypotension is not due to Parkinson's with neurogenic orthostatic hypotension ( ) Other: Please Specify Physician's Response(s): Thank you Ольга Roldan Principal Diagnosis: "that condition established after study, to be chiefly responsible for occasioning the admission of the patient to the hospital for care." Co-Existing Principal Diagnosis: "when two or more diagnoses equally meet the criteria for principal diagnosis as determined by the circumstances of admission, diagnostic work up, and/or therapy provided, and the Alphabetic Index, Tabular List, or another coding guideline does not provide sequencing direction, any one of the diagnoses may be sequenced first." "When the physician has documented what appears to be a current diagnosis in the body of the record, but has not included the diagnosis in the final diagnostic statement, the physician should be asked whether the diagnosis should be added." ([facility] 2 QTR90. p3-4) DEVENDRA
--- NOTE | 2020-09-05 07:58 | Coding Query ---
CONGESTIVE HEART FAILURE To Promote full compliance with coding requirements relating to patient care, physician participation is requested in all cases of bistro attendant uncertainty. Please assist us with the following questions. A diagnosis of Congestive Heart Failure is documented in the patient's medical record on the H&P. To accurately code this diagnosis and to compare patient severity, we ask that you specify the type of heart failure by placing an X within the parenthesis (x). SYSTOLIC HEART FAILURE ( ) Acute ( ) Chronic ( ) Acute on Chronic ( ) Rheumatic ( ) Unknown DIASTOLIC HEART FAILURE ( ) Acute (x ) Chronic ( ) Acute on Chronic ( ) Rheumatic ( ) Unknown COMBINED SYSTOLIC AND DIASTOLIC HEART FAILURE ( ) Acute ( ) Chronic ( ) Acute on Chronic ( ) Rheumatic ( ) Unknown Thank you Ольга RAMSAY
== END 2020-08-19 15:20 | disposition home health service (06) | DRG 292 ==
LOC: ED 09:59 → 2S 09:59

== ENCOUNTER 2020-09-26 11:55 | Inpatient (IN) ==
[2020-09-26] MEDS ORDERED: ONDANSETRON INJ 2 MG/ML 2 ML VIAL IV STA (12:48)
[2020-09-26] MEDS ORDERED: fentaNYL citrate 100 MCG/2 ML VIAL IV STA (12:48)
[2020-09-26] MEDS ORDERED: SODIUM CHLORIDE 0.9% 1000ML 1,000 ML IV SCH (13:00)
--- NOTE | 2020-09-26 13:25 | CT Scan Report ---
CT SCAN OF THE BRAIN WITHOUT IV CONTRAST CLINICAL HISTORY: Fall. Head injury. COMPARISON STUDY: CT of the brain dated 07/26/2020. TECHNIQUE: Unenhanced axial CT scan of the brain is performed from the vertex to the skull base. A do se lowering technique was utilized adhering to the principles of ALARA. FINDINGS: Brain parenchyma: There are age-related involutional changes noting moderate to advanced confluent s ubcortical and periventricular microangiopathic change. There is no hemorrhage, mass effect, or evide nce of acute territorial ischemia by CT criteria. Ruggiero-white matter differentiation is preserved. No extra-axial fluid collection is seen. Ventricles, sulci, cisterns: Prominent secondary to involutional change. Intracranial vasculature: There is atherosclerotic calcification of the cavernous carotid and vertebr al arteries. Calvarium: The skeletal structures are osteopenic. No depressed calvarial fracture is identified. Sinuses and mastoids: The visualized paranasal sinuses are clear. The mastoid air cells are well pneu matized. Orbits: The bony orbits are grossly intact. There are bilateral ocular lens implants. IMPRESSION: There is no hemorrhage, mass effect, or evidence of acute territorial ischemia by CT césar cohen. ACT 112: Negative or not required by law. Electronically signed by: Porfirio Thomas M.D. 09/26/2020 1:23 PM
--- NOTE | 2020-09-26 13:28 | CT Scan Report ---
CT SCAN OF THE CERVICAL SPINE CLINICAL HISTORY: Falls. Head injury. COMPARISON STUDY: CT of the cervical spine dated 07/26/2020. TECHNIQUE: CT scan of the cervical spine is performed from the skull base to the upper thoracic spine . Images are reviewed in the axial, sagittal, and coronal planes. IV contrast was not administered fo r this examination. A dose lowering technique was utilized adhering to the principles of ALARA. CT DOSE: 957.00 mGy.cm FINDINGS: Skeletal structures: The skeletal structures are osteopenic. There is no evidence of fracture or subl uxation involving the cervical spine. Vertebral body height and alignment are maintained. Small anter ior osteophytes are seen throughout. The odontoid process and lateral masses are intact. The atlantoa xial articulation is preserved noting productive degenerative change. The spinous processes appear in tact. There is mild to moderate multilevel cervical spondylosis. Uncovertebral and facet arthropathy contribute to neural foraminal narrowing at several levels. There are minimal chronic superior endpla te compression deformities of T1, T2, and T3. Intervertebral discs: There is moderate to advanced disc space narrowing at C6-C7. Only minimal disc space narrowing is seen at the remaining cervical levels. Central canal: A posterior disc osteophyte complex at C6-C7 may contribute to mild acquired compromis e of the central canal. Soft tissues: The prevertebral and paraspinous soft tissues are within normal limits. There is athero sclerotic calcification of the carotid bulbs. There are numerous calcified tonsilliths. Calvarium: The visualized calvarium at the skull base appears intact. Brain parenchyma: Partially visualized brain parenchyma at the skull base is within normal limits not ing age-related involutional change. Sinuses and mastoids: There is trace mucosal thickening within the sphenoid sinuses. Thickening and s clerosis of the sinus allen indicates chronicity. The mastoid air cells are well pneumatized. Lung apices: Clear as visualized. IMPRESSION: 1. There is no evidence of fracture or subluxation involving the cervical spine. 2. Osteopenia and spondylotic change as above. ACT 112: Negative or not required by law. Electronically signed by: Porfirio Thomas M.D. 09/26/2020 1:27 PM
--- NOTE | 2020-09-26 13:38 | XRay Report ---
XR pelvis 1-2V routine CLINICAL HISTORY: fall, sacral pain COMPARISON: CT of the abdomen and pelvis and pelvis radiograph July 23, 2019. FINDINGS: Sacroiliac joints and symphysis pubis are intact. There is no acute fracture within the pe lvis or hips. Moderate vascular calcification is noted. There is mild osteoarthritis of both hips. IMPRESSION: No acute fracture within the pelvis or hips. ACT 112: Negative or not required by law. Electronically signed by: Gabriel Irving M.D. 09/26/2020 1:36 PM
--- NOTE | 2020-09-26 13:41 | XRay Report ---
XR chest 1V portable CLINICAL HISTORY: weakness COMPARISON STUDY: Chest radiograph and chest CT August 16, 2020. FINDINGS: Patient is rotated. Cardiomegaly and mild dilatation of the ascending aorta are better depi cted on recent chest CT. There is no evidence for pulmonary edema or pneumonia. No pneumothorax or pl eural effusion is noted. Slight asymmetric interstitial thickening within the right lung is noted. IMPRESSION: 1. Cardiomegaly. Rotated study. 2. Slight asymmetric interstitial thickening within the right lung, a nonspecific finding. ACT 112: Negative or not required by law. Electronically signed by: Gabriel Irving M.D. 09/26/2020 1:39 PM
[2020-09-26] MEDS ORDERED: HYDROCODONE/ACETAMOPHEN 5/325MG TAB PO STA (14:24)
[2020-09-26 14:44] LABS: Appearance Urine Clear (Clear); Bilirubin Urine Negative (Negative); Blood Urine Trace-intact (Negative); Color Urine Yellow; Glucose Urine UA Negative (Negative); Ketones Urine Trace (Negative); Leukocyte Esterase Urine Negative (Negative); Nitrite Urine Negative (Negative); Protein Urine Trace (Negative); Urobilinogen Urine Negative (Negative)
[2020-09-26 14:54] LABS: Bacteria Urine Negative (Negative); Epithelial Cell Urine 0-5 /lpf (0-5); WBC Urine 0-5 /hpf (0-5)
--- NOTE | 2020-09-26 14:59 | XRay Report ---
LEFT KNEE 2 VIEWS CLINICAL HISTORY: Left knee injury. FINDINGS: AP and crosstable lateral views of the left knee are obtained. No prior studies are availab le for comparison at the time of dictation. The skeletal structures are osteopenic. No fracture is se en. There is advanced degenerative narrowing in the medial and patellofemoral compartments. Mild narr owing is seen in the lateral compartment. There are small marginal osteophytes and degenerative beaki ng of the tibial spine. A moderate joint effusion is noted. Soft tissue edema is seen around the knee . There is atherosclerotic calcification of the popliteal artery. IMPRESSION: 1. Soft tissue swelling and joint effusion with no fracture identified. 2. Osteopenia and degenerative change as above. Electronically signed by: Porfirio Thomas M.D. 09/26/2020 2:57 PM
[2020-09-26] MEDS ORDERED: ACETAMINOPHEN 1,000 MG/100 ML VIAL IV STA (15:28)
[2020-09-26 15:29] LABS: Alanine Aminotransferase 18 U/L (12-78); Aspartate Aminotransferase 23 U/L (15-37); BUN Creatinine Ratio 23.5 (10-20); Basophils # (auto) 0.01 K/uL (0-0.2); Basophils % (auto) 0.1 %; Blood Urea Nitrogen 20 mg/dl (7-18); Calcium 9.2 mg/dl (8.5-10.1); Carbon Dioxide 29 mmol/L (21-32); Chloride 101 mmol/L (98-107); Eosinophils # (auto) 0.03 K/uL (0-0.5); Eosinophils % (auto) 0.2 %; Est GFR (African American) 76.6 ml/min; Est GFR (Non-African American) 66.1 ml/min; Glucose 109 mg/dl (70-99); Hematocrit (blood only) 42.6 % (37-47); Hemoglobin 14.1 g/dL (12.0-16.0); Immature Granulocytes # (auto) 0.04 K/uL (0.00-0.02); Immature Granulocytes % (auto) 0.3 %; Lymphocytes # (auto) 0.92 K/uL (1.2-3.4); Lymphocytes % (auto) 6.7 %; Magnesium 1.8 mg/dl (1.8-2.4); Mean Corpuscular Hemoglobin 29.4 pg (25-34); Mean Corpuscular Hgb Conc 33.1 g/dL (32-36); Mean Corpuscular Volume 88.9 fL (80-100); Mean Platelet Volume 10.2 fL (7.4-10.4); Monocytes # (auto) 1.22 K/uL (0.11-0.59); Monocytes % (auto) 8.9 %; Neutrophils # (auto) 11.53 K/uL (1.4-6.5); Neutrophils % (auto) 83.8 %; Platelet Count 262 K/uL (130-400); Potassium 3.5 mmol/L (3.5-5.1); RDW Standard Deviation 48.4 fL (36.4-46.3); Red Blood Count 4.79 M/uL (4.2-5.4); Sodium 138 mmol/L (136-145); White Blood Count 13.75 K/uL (4.8-10.8)
[2020-09-26 15:41] LABS: Albumin Globulin Ratio 1.2 (0.9-2); Alkaline Phosphatase 93 U/L (45-117); Globulin 3.2 gm/dl (2.5-4.0); Thyroid Stimulating Hormone 0.551 uIu/ml (0.300-4.500); Total Protein 7.2 gm/dl (6.4-8.2); Troponin I 0.119 ng/ml (0-0.045)
[2020-09-26] MEDS ORDERED: CARBIDOPA/LEVODOPA 50/200MG EXT REL TAB PO STA (15:47)
[2020-09-26] MEDS ORDERED: CARBIDOPA/LEVODOPA 25/100MG TAB ODT PO STA (15:48)
[2020-09-26] MEDS ORDERED: LORazepam 1 MG/2 ML VIAL IV STA (15:49)
--- NOTE | 2020-09-26 16:06 | History & Physical Report ---
Date of Service September 26, 2020 Assessment & Plan (1) Neck pain: - Admit to med surg for obs - PT/OT - Pain control, ice/heat alternating - CT cervical spine negative - MRI c-spine done to r/o fracture that may be missed on CT due to multiple falls - this is negative. (2) Fall: - PT/OT consults for possible discharge to SNF for PT/OT, unsure if the pt would be able to participate in 3hrs of PT/OT daily at [facility] - Fall precautions - Likely due to autonomic dysfunction associated with Parkinsons - Monitor BP, noted to have dropped with dose of fentanyl in the ER 95/67 - now elevated. - Discussed care with neurology- Dr. Wright via tigertext and possible consult - pt had seen Dr. Stevens on 09/18/20 and was working to adjust Sinemet dosing with concern that she was over medicated. Pt questioned diagnosis of neurogenic orthostatic hypotension. She is noted to have autonomic dysfunction in association with Parkinsons and this is being addressed with medication adjustments. Was taken off midodrine in August by Cardiology, and appears was discharged on lasix 20 mg PO daily, and sometime after this medication was discontinued. For now, no need for inpatient neuro consult due to chronic issues. Dr. Wright plans to get outpatient visit scheduled when he is in the office tomorrow. (3) Parkinson disease: - Hx of such - cont carbidopa/levodopa short and long acting - missed meds this morning. Continue rasgiline mesylate 1 mg daily. - As above (4) Elevated troponin: -History of such, elevated at 0.119, trend x 2 more sets -Follows with cardiology as outpatient - no longer on lasix, appears euvolemic. BP elevated at 170/88, had dropped after being given dose of fentanyl in the ER to 95/67 -Denies chest pain (5) CAD (coronary artery disease): - hx of stents to RCA, LCX and Prox LAD, last 2012 - Echo 07/27/2020 which revealed EF 35%, left atrium severely enlarged, diastolic dysfunction grade 1, AV mildly calcified but no sclerosis, no pulmonary hypertension. - Repeat ECHO 08/16/20 showed moderate concentric LVH, left ventricular wall motion normal, EF =55%, left atrium moderately dilated, mild mitral regurg, Doppler findings do not suggest pulmonary hypertension, grade 1 diastolic dysfunction. - Continue atorvastatin (6) Hypertension: - pt with hx of HTN and CAD - monitor for orthostatic hypotension and falls in setting of autonomic dysfunction with Parkinson - Off midodrine, lasix and potassium supplements CARDIOVASCULAR SURGICAL TECH (7) Leukocytosis: - Noted WNC elevated at 13 K - does not appear to have obvious infectious source. Negative UA, Home health aid noted foul smelling urine so will follow UCx. Check Procal. CXR reviewed showing R lung nodular opacity but this is known from last admission. CT chest pending. No respiratory symptoms. On room air with 98% O2 sats. (8) Dyslipidemia: - Cont atorvastatin 40 mg HS (9) Hyperglycemia: - Glucose elevated at 110 on admission with nothing eaten today. A1C from August was 6.1. Recheck A1C with am labs. - Consider [employer] to meet with pt regarding new onset DM II if A1C is elevated. - HH diet for now (10) Hypothyroid: - Cont levothyroxine 112 mcg daily - TSH 0.551 (11) CKD (chronic kidney disease), stage III: - BUN and Cr stable. Appears baseline around 1.2, currently Cr. 0.83, likely since she's been off lasix. Monitor volume status as above. (12) Anxiety: - Cont zoloft 100 mg daily (13) DVT prophylaxis: - teds, heparin subq CODE: Conditional: no intubation/ventilation. Ok with chest compressions/IV medication. Discussed with pt and her daughter Kacie. Dispo: From home, likely to remain in the hospital x 1-2 days. CM to assist with discharge planning for possible SNF vs acute rehab. History of Present Illness Primary Care Provider: Raisa Martin MD This is a 79 yo F with PMHx of CAD, HTN, HLD, prediabetes, hypothyroidism, Parkinson's disease, autonomic dysfunction secondary to Parkinson's disease, GERD, vitamin D deficiency, depression, CKD stage III,and history of SDH. Pt was recently admitted from 08/16-08/19 for episode of shortness of breath. Daughter Kacie is present at bedside and helps support the history. Pt reports that she has been falling nearly daily, sometimes several times per day. It is worse whenever she goes from a sitting to standing position quickly and reports that she must stand there for 5 minutes before she starts walking. She does use a walker at baseline. Her last fall was 2 days ago, and that she was well thro ugh yesterday. This morning when she woke up she had significant neck pain, which is worse whenever she looks from side to side, minimal pain whenever she looks up or looks down. The patient has home health nurses who are in her home daily for various periods of time. Her also has Parkinson's disease and requires extra help. This morning when home health nurses noticed how much pain she was having they referred her to the ER. She did not take any of her medications today due to pain and transfer to ER. The patient met with Dr. Stevens, neurology, via telemedicine on 09/18/20 for Parkinsons and repeated falls. She is no longer on lasix or midodrine. They were managing her medications for Parkinsons and he wondered if she was on too much Sinemet. Patient and daughter are concerned that she may have neurogenic orthostatic hypotension and wish to see a neurologist who will further look into this. Patient also would prefer to see a local neurologist versus travel to [place] for appointments in the future. CT of the head, C-spine pelvis and L knee were all imaged and are negative for acute fracture. Due to timing of day the patient was unable to be placed at [facility] without physical or occupational therapy evaluations. She will be admitted under observation for PT/OT consults. Troponin was mildly elevated at 0.119, but is chronically elevated and no complaints of chest pain. Allergies Allergy/AdvReac Type Severity Reaction Status Date / Time celecoxib AdvReac Intermediate GI SYMPTOMS Verified 09/26/20 14:28 hydrocodone AdvReac Unknown STOMACH Verified 09/26/20 14:28 IRRITATION Home Medications Medication Instructions Recorded Confirmed Type atorvastatin 40 mg PO HS 06/25/19 09/26/20 History carbidopa-levodopa 1 tab PO HS 06/25/19 09/26/20 History carbidopa-levodopa 1 tab PO QID 07/13/19 09/26/20 History rasagiline [Azilect] 1 mg PO QAM 07/13/19 09/26/20 History melatonin 5 mg PO HS 01/07/20 09/26/20 History cetirizine [Zyrtec] 10 mg PO QAM 08/16/20 09/26/20 History clotrimazole 10 mg PO 5XD 08/16/20 09/26/20 History sertraline 100 mg PO QAM 08/16/20 09/26/20 History sucralfate 1 g PO QID 08/16/20 09/26/20 History acetaminophen [Tylenol Extra 500 mg PO Q6H PRN 09/26/20 09/26/20 History Strength] aspirin [Aspir-81] 81 mg PO QAM 09/26/20 09/26/20 History carbidopa-levodopa 1 tab PO DAILY 09/26/20 09/26/20 History cholecalciferol (vitamin D3) 25 mcg PO QAM 09/26/20 09/26/20 History [Vitamin D3] pantoprazole 20 mg PO DAILYBB 09/26/20 09/26/20 History vit A,C and Z-iebiid-ptggwkue 1 tab PO QAM 09/26/20 09/26/20 History [Ocuvite with Lutein] Past Med/Surg History Medical History Anxiety CAD (coronary artery disease) Status post August 2007 PCI of both the RCA and LCX with FABIOLA Status post April 2008 PCI of the mid RCA with 2 FABILOA Status post May 2008 PCI of the proximal LAD Status post March 2013 PCI of the RCA with a FABIOLA GERD (gastroesophageal reflux disease) Hyperlipidemia Hypertension Hypothyroidism Parkinson disease Prediabetes Per records Surgical History History of ankle surgery LEFT History of appendectomy History of arthroplasty of right knee x 2 per records History of cardiac cath 08/2007, 04/2008, 2008, 2012 History of cholecystectomy Per records History of colonoscopy History of herniorrhaphy Per records History of hysterectomy History of thumb surgery Per records- right thumb Hx of angioplasty FO[place]OWS [place] Family History Mother Diabetes Brother Myocardial infarction Social History Smoking Status: Unknown if ever smoked Second Hand Exposure: No; Hx Alcohol Use: No Hx Substance Use: No Preferred Language: Macedonian Communication Ability: Effective Service Car Operator Required: No Beliefs That Will Affect Care: None marital status: Current Living Situation: Spouse Other Information That Helps Us Care for You: No Feels Safe at Home: Yes Safety Concerns: Feels Safe At This Time Assistive Devices: Denture - Upper, Denture - Lower, Glasses, Walker and Wheelchair Review of Systems Review of Systems: Constitutional: No fever, sweats or chills Eyes: No diplopia, no worsening or blurred vision ENT: normal hearing, no trouble swallowing Neck: Pain as per HPI. Respiratory: No cough, sputum, dyspnea at rest or on exertion Cardiovascular: No chest pain, tightness or palpitations Abdomen: No pain, nausea, vomiting, diarrhea or constipation Musculoskeletal: No joint pain, calf pain, swelling Neurologic: + falls, +dizziness, +uses walker at baseline, + balance problems. Psychiatric: No anxiety or depression Skin: No rash or itch Physical Exam Physical Exam: General: awake, alert, no apparent distress, tremor with fine movements Head: Normocephalic, +Left forehead and superior orbit ecchymosis s/p fall. ENT: PERRL, EOMI, no pharyngeal exudate, mucous membranes moist Chest: Clear to auscultation but diminished slightly at bases, on room air, no adventitious breath sounds Cardiac: Regular rate and rhythm, no murmur, no JVD, normal peripheral pulses, good capillary refill Abdominal: NABS x 4 quadrants, soft, nondistended, nontender to palpation, no rebound or guarding Extremities: Normal inspection, no peripheral edema or erythema, calfs nontender to palpation Psych: Normal mood and affect Neuro: AAO x 3, strength intact bilaterally and rated 5/5 in upper extremities, 3/5 in lower extremities bilaterally, limited movement with neck rotation from right to left and most pain, limited neck flexion and extension with minimal pain, + tremor in hands with fine movements, no motor deficits, speech is clear, no peripheral sensory deficits, gait not assessed. Results & Data Results & Data ([facility]) Vital Signs (Past 12 Hours) Vital Signs Temp Pulse Pulse Resp BP BP Pulse Ox 09/26/20 14:30 69 16 170/88 H 95 09/26/20 11:59 36.7 C 67 18 175/92 H 96 Laboratory Results Laboratory Results - last 24 hr 09/26/20 09/26/20 09/26/20 14:25 14:51 14:51 WBC 13.75 H RBC 4.79 Hgb 14.1 Hct 42.6 MCV 88.9 MCH 29.4 MCHC 33.1 RDW Std Deviation 48.4 H RDW Coeff of Ananya 15.0 H Plt Count 262 MPV 10.2 Immature Gran % (Auto) 0.3 Neut % (Auto) 83.8 Lymph % (Auto) 6.7 Pennington % (Auto) 8.9 Eos % (Auto) 0.2 Baso % (Auto) 0.1 Neut # (Auto) 11.53 H Lymph # (Auto) 0.92 L Pennington # (Auto) 1.22 H Eos # (Auto) 0.03 Baso # (Auto) 0.01 Immature Gran # (Auto) 0.04 H Sodium 138 Potassium 3.5 Chloride 101 Carbon Dioxide 29 Anion Gap 8.0 BUN 20 H Creatinine 0.83 Est Cr Clr Drug Dosing Not Reportable Est GFR ( Amer) 76.6 Est GFR (Non-Af Amer) 66.1 BUN/Creatinine Ratio 23.5 H Glucose 109 H Lactate Calcium 9.2 Magnesium 1.8 Total Bilirubin 1.0 AST 23 ALT 18 Alkaline Phosphatase 93 Troponin I 0.119 H* Total Protein 7.2 Albumin 4.0 Globulin 3.2 Albumin/Globulin Ratio 1.2 TSH 0.551 Urine Color Yellow Urine Appearance Clear Urine pH 6.0 Ur Specific Leighton 1.020 Urine Protein Trace H Urine Glucose (UA) Negative Urine Ketones Trace H Urine Blood Trace-intact H Urine Nitrite Negative Urine Bilirubin Negative Urine Urobilinogen Negative Ur Leukocyte Esterase Negative Urine RBC 5-10 H Urine WBC 0-5 Ur Epithelial Cells 0-5 Urine Bacteria Negative 09/26/20 14:51 WBC RBC Hgb Hct MCV MCH MCHC RDW Std Deviation RDW Coeff of Ananya Plt Count MPV Immature Gran % (Auto) Neut % (Auto) Lymph % (Auto) Pennington % (Auto) Eos % (Auto) Baso % (Auto) Neut # (Auto) Lymph # (Auto) Pennington # (Auto) Eos # (Auto) Baso # (Auto) Immature Gran # (Auto) Sodium Potassium Chloride Carbon Dioxide Anion Gap BUN Creatinine Est Cr Clr Drug Dosing Est GFR ( Amer) Est GFR (Non-Af Amer) BUN/Creatinine Ratio Glucose Lactate 1.6 Calcium Magnesium Total Bilirubin AST ALT Alkaline Phosphatase Troponin I Total Protein Albumin Globulin Albumin/Globulin Ratio TSH Urine Color Urine Appearance Urine pH Ur Specific Leighton Urine Protein Urine Glucose (UA) Urine Ketones Urine Blood Urine Nitrite Urine Bilirubin Urine Urobilinogen Ur Leukocyte Esterase Urine RBC Urine WBC Ur Epithelial Cells Urine Bacteria Diagnostic Findings Chest X-Ray 09/26/20 12:48 XR chest 1V portable CLINICAL HISTORY: weakness COMPARISON STUDY: Chest radiograph and chest CT August 16, 2020. FINDINGS: Patient is rotated. Cardiomegaly and mild dilatation of the ascending aorta are better depicted on recent chest CT. There is no evidence for pulmonary edema or pneumonia. No pneumothorax or pleural effusion is noted. Slight asymmetric interstitial thickening within the right lung is noted. IMPRESSION: 1. Cardiomegaly. Rotated study. 2. Slight asymmetric interstitial thickening within the right lung, a nonspecific finding. ACT 112: Negative or not required by law. Electronically signed by: Gabriel Irving M.D. 09/26/2020 1:[address] 09/26/20 12:48 CT SCAN OF THE BRAIN WITHOUT IV CONTRAST CLINICAL HISTORY: Fall. Head injury. COMPARISON STUDY: CT of the brain dated 07/26/2020. TECHNIQUE: Unenhanced axial CT scan of the brain is performed from the vertex to the skull base. A dose lowering technique was utilized adhering to the principles of ALARA. FINDINGS: Brain parenchyma: There are age-related involutional changes noting moderate to advanced confluent subcortical and periventricular microangiopathic change. There is no hemorrhage, mass effect, or evidence of acute territorial ischemia by CT criteria. Ruggiero-white matter differentiation is preserved. No extra-axial fluid collection is seen. Ventricles, sulci, cisterns: Prominent secondary to involutional change. Intracranial vasculature: There is atherosclerotic calcification of the cavernous carotid and vertebral arteries. Calvarium: The skeletal structures are osteopenic. No depressed calvarial fracture is identified. Sinuses and mastoids: The visualized paranasal sinuses are clear. The mastoid air cells are well pneumatized. Orbits: The bony orbits are grossly intact. There are bilateral ocular lens implants. IMPRESSION: There is no hemorrhage, mass effect, or evidence of acute territorial ischemia by CT criteria. ACT 112: Negative or not required by law. Electronically signed by: Porfirio Thomas M.D. 09/26/2020 1:[address] 09/26/20 12:50 CT SCAN OF THE CERVICAL SPINE CLINICAL HISTORY: Falls. Head injury. COMPARISON STUDY: CT of the cervical spine dated 07/26/2020. TECHNIQUE: CT scan of the cervical spine is performed from the skull base to the upper thoracic spine. Images are reviewed in the axial, sagittal, and coronal planes. IV contrast was not administered for this examination. A dose lowering technique was utilized adhering to the principles of ALARA. CT DOSE: 957.00 mGy.cm FINDINGS: Skeletal structures: The skeletal structures are osteopenic. There is no evidence of fracture or subluxation involving the cervical spine. Vertebral body height and alignment are maintained. Small anterior osteophytes are seen throughout. The odontoid process and lateral masses are intact. The atlantoaxial articulation is preserved noting productive degenerative change. The spinous processes appear intact. There is mild to moderate multilevel cervical spondy losis. Uncovertebral and facet arthropathy contribute to neural foraminal narrowing at several levels. There are minimal chronic superior endplate compression deformities of T1, T2, and T3. Intervertebral discs: There is moderate to advanced disc space narrowing at C6- C7. Only minimal disc space narrowing is seen at the remaining cervical levels. Central canal: A posterior disc osteophyte complex at C6-C7 may contribute to mild acquired compromise of the central canal. Soft tissues: The prevertebral and paraspinous soft tissues are within normal limits. There is atherosclerotic calcification of the carotid bulbs. There are numerous calcified tonsilliths. Calvarium: The visualized calvarium at the skull base appears intact. Brain parenchyma: Partially visualized brain parenchyma at the skull base is within normal limits noting age-related involutional change. Sinuses and mastoids: There is trace mucosal thickening within the sphenoid sinuses. Thickening and sclerosis of the sinus allen indicates chronicity. The mastoid air cells are well pneumatized. Lung apices: Clear as visualized. IMPRESSION: 1. There is no evidence of fracture or subluxation involving the cervical spine. 2. Osteopenia and spondylotic change as above. ACT 112: Negative or not required by law. Electronically signed by: Porfirio Thomas M.D. 09/26/2020 1:27 PM Pelvis X-Ray 09/26/20 12:50 XR pelvis 1-2V routine CLINICAL HISTORY: fall, sacral pain COMPARISON: CT of the abdomen and pelvis and pelvis radiograph July 23, 2019. FINDINGS: Sacroiliac joints and symphysis pubis are intact. There is no acute fracture within the pelvis or hips. Moderate vascular calcification is noted. There is mild osteoarthritis of both hips. IMPRESSION: No acute fracture within the pelvis or hips. ACT 112: Negative or not required by law. Electronically signed by: Gabriel Irving M.D. 09/26/2020 1:36 PM Knee X-Ray 09/26/20 14:24 LEFT KNEE 2 VIEWS CLINICAL HISTORY: Left knee injury. FINDINGS: AP and crosstable lateral views of the left knee are obtained. No prior studies are available for comparison at the time of dictation. The skeletal structures are osteopenic. No fracture is seen. There is advanced degenerative narrowing in the medial and patellofemoral compartments. Mild narrowing is seen in the lateral compartment. There are small marginal osteophytes and degenerative beaking of the tibial spine. A moderate joint effusion is noted. Soft tissue edema is seen around the knee. There is athero sclerotic calcification of the popliteal artery. IMPRESSION: 1. Soft tissue swelling and joint effusion with no fracture identified. 2. Osteopenia and degenerative change as above. Electronically signed by: Porfirio Thomas M.D. 09/26/2020 2:57 PM ECG Additional Comments: 26-SEP-2020 13:09:48 [facility]-EDSTAT ROUTINE RETRIEVAL Poor data quality, interpretation may be adversely affected Accelerated Junctional rhythm Nonspecific ST and T wave abnormality Abnormal ECG When compared with ECG of 17-AUG-2020 05:28, Junctional rhythm has replaced Sinus rhythm T wave inversion now evident in Lateral leads 25mm/s 10mm/mV 150Hz 9.0.9 12SL 241 HD SALVADOR: 12 Unconfirmed Vent. rate 68 BPM SD interval * ms QRS duration 90 ms QT/QTc 422/448 ms Supervising Physician Co-Signing Physician Notes Pt seen and examined by me, care coordinated with Karissa Rodriguez PA-C, pls refer to her note above for further detail. Pt is an 79 y/o F with hx of CAD and Parkinson's and other med. problems who has frequent falls. Most recently hurt her neck and so presented to the ED. Initial imaging unrevealing. Mildly elevated troponin noted, pt denies having any hx of chest pain, shortness of breath. Currently she is laying in bed in NAD, her daughter is at the bedside and helps provide the hx. Pt is awake and answers questions appropriately. Has flat affect. Lungs sounds are CTAB w/o any wheezing, rhonchi, crackles. Heart sounds regular. Abdomen is soft, nontender, nondistended. Pt is moving extremities, seems to have LE weakness. + tremor in hand w/ fine movement. Skin is warm and dry. Reviewed consult notes from cardiology and outpt neurology. Reviewed current labs and imaging. Pt's WBC is slightly elevated, CXR not completely clear. Will obtain chest CT to r/o any underlying process. UA negative but home health concerned about it, will await cultures. Trop mildly elevated w/o any other associated symptoms, seems chronic, will repeat troponin, and will monitor on tele, repeat EKG as current one is a poor quality. Discuss w/ cardiology if further concern arise. Contacted neurology - recommend outpt follow up which will be arranged tomorrow. Rohan Still MD (1) Fall Encounter type: initial encounter Qualified Code(s): W19.XXXA - Unspecified fall, initial encounter
[2020-09-26] MEDS ORDERED: POTASSIUM CHLORIDE CRTAB 20 MEQ TABCR PO STA (16:51)
--- NOTE | 2020-09-26 17:08 | Electrocardiogram Report ---
Test Reason : Blood Pressure : / mmHG Vent. Rate : 068 BPM Atrial Rate : 312 BPM P-R Int : 000 ms QRS Dur : 090 ms QT Int : 422 ms P-R-T Axes : 000 -20 -68 degrees QTc Int : 448 ms Poor data quality, interpretation may be adversely affected Normal sinus rhythm Nonspecific ST and T wave abnormality Abnormal ECG When compared with ECG of 17-AUG-2020 05:28, T wave inversion now evident in Lateral leads Confirmed by Wei Clark ([id number]) on 09/26/2020 5:08:35 PM Referred By: Confirmed By:Jose Clark
--- NOTE | 2020-09-26 17:10 | Magnetic Resonance Report ---
MRI OF THE CERVICAL SPINE WITHOUT IV CONTRAST CLINICAL HISTORY: Fall. Neck pain. COMPARISON STUDY: CT of the cervical spine dated 09/26/2020. TECHNIQUE: MRI of the cervical spine is performed utilizing various T1 and T2-weighted sequences in t he axial and sagittal planes. IV contrast was not administered for this examination. FINDINGS: Cervical spine: Vertebral body height and alignment are maintained throughout the cervical spine. The re is mild hyperlordosis. The atlantodental articulation is preserved. The spinous processes appear i ntact. No destructive bony lesion is seen. Small anterior osteophytes are seen in the lower cervical region. There are mild chronic superior endplate compression deformities of T1, T2, and T3. Intervertebral discs: Degenerative disc desiccation and loss of height is seen throughout the cervica l spine. Loss of height is moderate at C6-C7. Spinal cord: The cervical spinal cord is normal in morphology and signal intensity. C2-C3: A posterior disc osteophyte complex minimally effaces the ventral subarachnoid space. Uncovert ebral and facet arthropathy contribute to mild right neural foraminal stenosis. C3-C4: A posterior disc osteophyte complex abuts the ventral cord. Uncovertebral and facet arthropath y cause moderate to severe right and mild left neural foraminal stenosis. C4-C5: A posterior disc osteophyte complex minimally effaces the ventral cord. Uncovertebral and face t arthropathy cause mild left and minimal right neural foraminal stenosis. C5-C6: A posterior disc osteophyte complex minimally effaces the ventral cord. Mild facet arthropathy is of no consequence. The neural foramina appear clear. C6-C7: A posterior disc osteophyte complex abuts the ventral cord. Uncovertebral and facet arthropath y cause mild left and minimal right neural foraminal stenosis. C7-T1: Unremarkable. Soft tissues: The prevertebral and paraspinous soft tissues are normal as visualized. Brain parenchyma: The cerebellar tonsils are normal in configuration. A chronic lacunar infarct is qu estioned in the christopher. IMPRESSION: 1. No acute abnormality is identified involving the cervical spine. 2. Spondylotic change as above. See discussion for detailed level by level analysis. 3. The cervical spinal cord is normal in morphology and signal intensity. Dictated: 09/26/2020 4:49 PM Transcribed: 09/26/2020 5:03 PM Madhavi [id number] Veronica Electronically signed by: Porfirio Thomas M.D. 09/26/2020 5:09 PM
--- NOTE | 2020-09-26 19:06 | CT Scan Report ---
CT SCAN OF THE CHEST WITHOUT IV CONTRAST CLINICAL HISTORY: [place]. COMPARISON STUDY: Chest x-ray dated 09/26/2020. Chest CT scans dated 08/16/2020 and 03/22/2013. TECHNIQUE: CT scan of the thorax was performed from the thoracic inlet to the upper abdomen. Images are reviewed in the axial, sagittal, and coronal planes. IV contrast was not administered for this ex amination as per the referring clinician. A dose lowering technique was utilized adhering to the elizabeth meredith of [place]. The examination is degraded by motion artifact, as well as by streak artifact from the arms which could not be elevated above the chest. CT DOSE: 312.31 mGycm FINDINGS: Thyroid: Imaged portions of the thyroid gland are normal in size and attenuation. Thoracic aorta: The thoracic aorta is normal in caliber and demonstrates standard 3-vessel arch anato my. Heart: The heart is enlarged noting trace pericardial effusion. The coronary arteries are densely grace cified. Lungs and pleural spaces: Evaluation of the lung parenchyma is modestly degraded by motion artifact. There is no airspace consolidation, pleural effusion, or pneumothorax. The trachea and central airway s are clear. Foci of scarring/atelectasis are present throughout both lungs. Mediastinum: There is no mediastinal hematoma or lymphadenopathy. Debris is noted within the upper es ophagus. Kaitlin: Not well assessed without IV contrast. Axillae: There is no axillary lymphadenopathy. Upper abdomen: The gallbladder is surgically absent. There is a 3 mm nonobstructing right renal calcu rochelle. Partially visualized upper abdominal viscera is otherwise within normal limits. Skeletal structures: The skeletal structures are osteopenic. The bony thorax appears intact. No lytic or blastic bony lesions are seen. Degenerative change and hyperkyphosis is noted in the thoracic spi ne. Minimal chronic compression deformities in the upper thoracic region are unchanged. Degenerative change is again seen in the shoulders, with bursal fluid on the right. IMPRESSION: 1. Streak and motion compromised examination. 2. There is no airspace consolidation, pleural effusion, or pneumothorax. 3. The bony thorax appears intact. 4. Debris is noted in the upper esophagus. Note that this may place the patient at risk for aspiratio n. 5. Cardiomegaly with advanced coronary artery calcification. 6. Additional findings as above. ACT 112: Negative or not required by law. Electronically signed by: Porfirio Thomas M.D. 09/26/2020 7:04 PM
--- NOTE | 2020-09-26 21:07 | Emergency Department Note ---
History of Present Illness General Chief complaint: Neck Injury/Pain Time Seen by Provider: 09/26/20 12:48 Source: patient, family (Daughter) and RN notes reviewed Mode of arrival: EMS Limitations: altered mental status (? memory impairment) History of Present Illness Provider complaint: Multiple falls, closed head injury, neck pain, unable to get out of bed Maximum Pain Intensity: 4 This patient is an 79-year-old female who presents to the emergency department today by EMS after the health nurse discovered her this morning unable to get out of bed. Patient had multiple falls over the last 4 days at home. According to her, she fell and her was able to help her up. She does not believe that she lost consciousness but has sustained a neck injury that has caused significant pain. This morning the patient was unable to move her head. Patient does have a history of Parkinson's disease and states she normally takes her medications, but this morning was unable to. She denies any headache, vomiting, chest pain or abdominal pain. She does complain of some low back/sacral pain. Home Medications Medication Instructions Recorded Confirmed Type atorvastatin 40 mg PO HS 06/25/19 09/26/20 History carbidopa-levodopa 1 tab PO HS 06/25/19 09/26/20 History carbidopa-levodopa 1 tab PO QID 07/13/19 09/26/20 History rasagiline [Azilect] 1 mg PO QAM 07/13/19 09/26/20 History melatonin 5 mg PO HS 01/07/20 09/26/20 History cetirizine [Zyrtec] 10 mg PO QAM 08/16/20 09/26/20 History clotrimazole 10 mg PO 5XD 08/16/20 09/26/20 History sertraline 100 mg PO QAM 08/16/20 09/26/20 History sucralfate 1 g PO QID 08/16/20 09/26/20 History acetaminophen [Tylenol Extra 500 mg PO Q6H PRN 09/26/20 09/26/20 History Strength] aspirin [Aspir-81] 81 mg PO QAM 09/26/20 09/26/20 History carbidopa-levodopa 1 tab PO DAILY 09/26/20 09/26/20 History cholecalciferol (vitamin D3) 25 mcg PO QAM 09/26/20 09/26/20 History [Vitamin D3] pantoprazole 20 mg PO DAILYBB 09/26/20 09/26/20 History vit A,C and S-[id number]-[id number] 1 tab PO QAM 09/26/20 09/26/20 History [Ocuvite with Lutein] Allergies Allergy/AdvReac Type Severity Reaction Status Date / Time celecoxib AdvReac Intermediate GI SYMPTOMS Verified 09/26/20 14:28 hydrocodone AdvReac Unknown STOMACH Verified 09/26/20 14:28 IRRITATION Past Med/Surg History Medical History Anxiety CAD (coronary artery disease) Status post August 2007 PCI of both the RCA and LCX with FABIOLA Status post April 2008 PCI of the mid RCA with 2 FABIOLA Status post May 2008 PCI of the proximal LAD Status post March 2013 PCI of the RCA with a FABIOLA GERD (gastroesophageal reflux disease) Hyperlipidemia Hypertension Hypothyroidism Parkinson disease Prediabetes Per records Surgical History History of ankle surgery LEFT History of appendectomy History of arthroplasty of right knee x 2 per records History of cardiac cath 08/2007, 04/2008, 2008, 2012 History of cholecystectomy Per records History of colonoscopy History of herniorrhaphy Per records History of hysterectomy History of thumb surgery Per records- right thumb Hx of angioplasty FOLLOWS [place] Family History Mother Diabetes Brother Myocardial infarction Social History Smoking Status: Never smoker Second Hand Exposure: No; Hx Alcohol Use: No Hx Substance Use: No Preferred Language: Urdu Communication Ability: Effective [employer] Required: No Beliefs That Will Affect Care: None marital status: Current Living Situation: Spouse Feels Safe at Home: Yes Assistive Devices: Denture - Upper, Denture - Lower and Glasses Review of Systems See HPI for pertinent positives & negatives. and A total of 10 systems reviewed and were otherwise negative Physical Exam Vital Signs Vital Signs - 24 hr 09/26/20 11:59 09/26/20 14:30 09/26/20 18:00 Temperature 36.7 C Temperature Source Oral Pulse Rate 67 Pulse Rate [Finger] 69 94 H Pulse Rate from SpO2 Sensor Pulse Rhythm [Finger] Regular Pulse Strength [Finger] Normal Respiratory Rate 18 16 20 Respiratory Effort / Characteristics Non-Labored Spontaneous Respiratory Depth Normal Respiratory Pattern Regular Blood Pressure 175/92 H Blood Pressure [Right Arm] 170/88 H 133/62 Blood Pressure Mean 119 Blood Pressure Mean [Right Arm] 115 85 Pulse Oximetry 96 95 98 Oxygen Delivery Method Room Air Room Air Room Air Sepsis Recent Fever Within 48 Hours No Sepsis New/Unexplained Change in Mental Status No Sepsis Action Taken by Nursing No Action Required 09/26/20 19:18 09/26/20 19:21 09/26/20 19:30 Temperature Temperature Source Pulse Rate 85 86 87 Pulse Rate [Finger] Pulse Rate from SpO2 Sensor 86 88 84 Pulse Rhythm [Finger] Pulse Strength [Finger] Respiratory Rate 26 H 25 H 28 H Respiratory Effort / Characteristics Respiratory Depth Respiratory Pattern Blood Pressure 126/73 130/80 Blood Pressure [Right Arm] Blood Pressure Mean 90 96 Blood Pressure Mean [Right Arm] Pulse Oximetry 97 97 93 Oxygen Delivery Method Sepsis Recent Fever Within 48 Hours Sepsis New/Unexplained Change in Mental Status Sepsis Action Taken by Nursing 09/26/20 19:31 09/26/20 20:00 09/26/20 20:01 Temperature Temperature Source Pulse Rate 84 83 83 Pulse Rate [Finger] Pulse Rate from SpO2 Sensor 84 84 81 Pulse Rhythm [Finger] Pulse Strength [Finger] Respiratory Rate 27 H 25 H 26 H Respiratory Effort / Characteristics Respiratory Depth Respiratory Pattern Blood Pressure 126/72 Blood Pressure [Right Arm] Blood Pressure Mean 90 Blood Pressure Mean [Right Arm] Pulse Oximetry 94 94 94 Oxygen Delivery Method Sepsis Recent Fever Within 48 Hours Sepsis New/Unexplained Change in Mental Status Sepsis Action Taken by Nursing Vital signs reviewed. General: Elderly 79-year-old female, in no significant distress. HEENT: No scleral icterus, PERRLA, neck supple. Ecchymosis to the left forehead that appears to be healing Cardiovascular: Regular rate and rhythm, no extra sounds. Pulmonary: Clear to auscultation bilaterally, normal work of breathing. Abdomen: Soft, nontender, nondistended, positive bowel sounds. Musculoskeletal: Atraumatic, no peripheral edema.tender to palpation over the distal cervical spine, no step-off or deformity appreciated. Nontender to palpation over the thoracic and lumbar spine. Nontender to pelvic rocking. Neurologic: Patient awake alert and oriented x 3 Skin: Warm, dry, no rash Course Administered Medications Discontinued Medications Hydrocodone Bitart/Acetaminophen (Hydrocodone/Acetamophen 5/325mg Tab) 1 tab PO NOW STA Stop: 09/26/20 14:25 Last Admin: 09/26/20 15:52 Dose: Not Given Documented by: [id number] Carbidopa/Levodopa (Carbidopa/Levodopa 50/200mg Ext Rel Tab) 1 tab PO NOW STA Stop: 09/26/20 15:48 Last Admin: 09/26/20 16:58 Dose: Not Given Documented by: [id number] Carbidopa/Levodopa (Carbidopa/Levodopa 25/100mg Tab Odt) 1.5 tab PO NOW STA Stop: 09/26/20 15:49 Last Admin: 09/26/20 16:51 Dose: 1.5 tab Documented by: [id number] Fentanyl Citrate (Fentanyl Citrate 100 Mcg/2 Ml Vial) 25 mcg IV NOW STA Stop: 09/26/20 12:49 Last Admin: 09/26/20 13:06 Dose: 25 mcg Documented by: [id number] Sodium Chloride (Nss 1000ml) 1,000 mls @ 125 mls/hr IV .Q8H JESUS Stop: 09/26/20 20:59 Last Admin: 09/26/20 13:07 Dose: 125 mls/hr Documented by: [id number] Acetaminophen (Ofirmev) 1,000 mg in 100 mls @ 400 mls/hr IV NOW STA Stop: 09/26/20 15:42 Last Infusion: 09/26/20 15:57 Dose: 0 mls/hr Documented by: [id number] Admin: 09/26/20 15:37 Dose: 400 mls/hr Documented by: [id number] Lorazepam (Ativan) 1 mg in 2 mls @ 2 mls/min IV PRN STA Stop: 09/26/20 15:50 Last Admin: 09/26/20 16:58 Dose: Not Given Documented by: [id number] Ondansetron HCl (Ondansetron Inj 2 Mg/Ml 2 Ml Vial) 4 mg IV NOW STA Stop: 09/26/20 12:49 Last Admin: 09/26/20 13:06 Dose: 4 mg Documented by: [id number] Potassium Chloride (Potassium Chloride Crtab 20 Meq Tabcr) 40 meq PO NOW STA Stop: 09/26/20 16:52 Last Admin: 09/26/20 17:36 Dose: 40 meq Documented by: [id number] Medical Decision Making Differential Diagnosis Infection, dehydration, metabolic abnormality, hypo/hyperglycemia, electrolyte disturbance, anemia, hypoxia, cardiac sources, intracerebral event, toxicologic, neurologic, as well as other pathologies. Medical Records Attestation: I reviewed the patient's medical records. Home Medications Current Medication List: was personally reviewed by me Laboratory Data Attestation: I reviewed the patient's lab results. Result diagrams: 09/26/20 14:51 09/26/20 14:51 Lab Results 09/26/20 09/26/20 09/26/20 Range/Units 14:25 14:51 14:51 WBC 13.75 H (4.8-10.8) K/uL RBC 4.79 (4.2-5.4) M/uL Hgb 14.1 (12.0-16.0) g/dL Hct 42.6 (37-47) % MCV 88.9 (80-100) fL MCH 29.4 (25-34) pg MCHC 33.1 (32-36) g/dL RDW Std Deviation 48.4 H (36.4-46.3) fL RDW Coeff of Ananya 15.0 H (11.5-14.5) % Plt Count 262 (130-400) K/uL MPV 10.2 (7.4-10.4) fL Immature Gran % (Auto) 0.3 % Neut % (Auto) 83.8 % Lymph % (Auto) 6.7 % Whiteside % (Auto) 8.9 % Eos % (Auto) 0.2 % Baso % (Auto) 0.1 % Neut # (Auto) 11.53 H (1.4-6.5) K/uL Lymph # (Auto) 0.92 L (1.2-3.4) K/uL Whiteside # (Auto) 1.22 H (0.11-0.59) K/uL Eos # (Auto) 0.03 (0-0.5) K/uL Baso # (Auto) 0.01 (0-0.2) K/uL Immature Gran # (Auto) 0.04 H (0.00-0.02) K/uL Sodium 138 (136-145) mmol/L Potassium 3.5 (3.5-5.1) mmol/L Chloride 101 (98-107) mmol/L Carbon Dioxide 29 (21-32) mmol/L Anion Gap 8.0 (3-11) BUN 20 H (7-18) mg/dl Creatinine 0.83 (0.6-1.2) mg/dl Est Cr Clr Drug Dosing Not Reportable Est GFR ( Amer) 76.6 ml/min Est GFR (Non-Af Amer) 66.1 ml/min BUN/Creatinine Ratio 23.5 H (10-20) Glucose 109 H (70-99) mg/dl Lactate (0.4-2.0) mmol/L Calcium 9.2 (8.5-10.1) mg/dl Phosphorus (2.5-4.9) mg/dl Magnesium 1.8 (1.8-2.4) mg/dl Total Bilirubin 1.0 (0.2-1) mg/dl AST 23 (15-37) U/L ALT 18 (12-78) U/L Alkaline Phosphatase 93 (45-117) U/L Troponin I 0.119 H* (0-0.045) ng/ml Total Protein 7.2 (6.4-8.2) gm/dl Albumin 4.0 (3.4-5.0) gm/dl Globulin 3.2 (2.5-4.0) gm/dl Albumin/Globulin Ratio 1.2 (0.9-2) Procalcitonin (0-0.5) ng/ml TSH 0.551 (0.300-4.500) uIu/ml Urine Color Yellow Urine Appearance Clear (Clear) Urine pH 6.0 (4.5-7.5) Ur Specific [place] 1.020 (1.000-1.030) Urine Protein Trace H (Negative) Urine Glucose (UA) Negative (Negative) Urine Ketones Trace H (Negative) Urine Blood Trace-intact H (Negative) Urine Nitrite Negative (Negative) Urine Bilirubin Negative (Negative) Urine Urobilinogen Negative (Negative) Ur Leukocyte Esterase Negative (Negative) Urine RBC 5-10 H (0-4) /hpf Urine WBC 0-5 (0-5) /hpf Ur Epithelial Cells 0-5 (0-5) /lpf Urine Bacteria Negative (Negative) COVID-19 Eval Order SARS-CoV-2 (PCR) (Negative) 0509/26/20 09/26/20 Range/Units 14:51 14:51 15:41 WBC (4.8-10.8) K/uL RBC (4.2-5.4) M/uL Hgb (12.0-16.0) g/dL Hct (37-47) % MCV (80-100) fL MCH (25-34) pg MCHC (32-36) g/dL RDW Std Deviation (36.4-46.3) fL RDW Coeff of Ananya (11.5-14.5) % Plt Count (130-400) K/uL MPV (7.4-10.4) fL Immature Gran % (Auto) % Neut % (Auto) % Lymph % (Auto) % Whiteside % (Auto) % Eos % (Auto) % Baso % (Auto) % Neut # (Auto) (1.4-6.5) K/uL Lymph # (Auto) (1.2-3.4) K/uL Whiteside # (Auto) (0.11-0.59) K/uL Eos # (Auto) (0-0.5) K/uL Baso # (Auto) (0-0.2) K/uL Immature Gran # (Auto) (0.00-0.02) K/uL Sodium (136-145) mmol/L Potassium (3.5-5.1) mmol/L Chloride (98-107) mmol/L Carbon Dioxide (21-32) mmol/L Anion Gap (3-11) BUN (7-18) mg/dl Creatinine (0.6-1.2) mg/dl Est Cr Clr Drug Dosing Est GFR ( Amer) ml/min Est GFR (Non-Af Amer) ml/min BUN/Creatinine Ratio (10-20) Glucose (70-99) mg/dl Lactate 1.6 (0.4-2.0) mmol/L Calcium (8.5-10.1) mg/dl Phosphorus 2.7 (2.5-4.9) mg/dl Magnesium (1.8-2.4) mg/dl Total Bilirubin (0.2-1) mg/dl AST (15-37) U/L ALT (12-78) U/L Alkaline Phosphatase (45-117) U/L Troponin I (0-0.045) ng/ml Total Protein (6.4-8.2) gm/dl Albumin (3.4-5.0) gm/dl Globulin (2.5-4.0) gm/dl Albumin/Globulin Ratio (0.9-2) Procalcitonin (0-0.5) ng/ml TSH (0.300-4.500) uIu/ml Urine Color Urine Appearance (Clear) Urine pH (4.5-7.5) Ur Specific [place] (1.000-1.030) Urine Protein (Negative) Urine Glucose (UA) (Negative) Urine Ketones (Negative) Urine Blood (Negative) Urine Nitrite (Negative) Urine Bilirubin (Negative) Urine Urobilinogen (Negative) Ur Leukocyte Esterase (Negative) Urine RBC (0-4) /hpf Urine WBC (0-5) /hpf Ur Epithelial Cells (0-5) /lpf Urine Bacteria (Negative) COVID-19 Eval Order Covid19 at [facility] SARS-CoV-2 (PCR) (Negative) 09/26/20 09/26/20 Range/Units 15:41 17:16 WBC (4.8-10.8) K/uL RBC (4.2-5.4) M/uL Hgb (12.0-16.0) g/dL Hct (37-47) % MCV (80-100) fL MCH (25-34) pg MCHC (32-36) g/dL RDW Std Deviation (36.4-46.3) fL RDW Coeff of Ananya (11.5-14.5) % Plt Count (130-400) K/uL MPV (7.4-10.4) fL Immature Gran % (Auto) % Neut % (Auto) % Lymph % (Auto) % Whiteside % (Auto) % Eos % (Auto) % Baso % (Auto) % Neut # (Auto) (1.4-6.5) K/uL Lymph # (Auto) (1.2-3.4) K/uL Whiteside # (Auto) (0.11-0.59) K/uL Eos # (Auto) (0-0.5) K/uL Baso # (Auto) (0-0.2) K/uL Immature Gran # (Auto) (0.00-0.02) K/uL Sodium (136-145) mmol/L Potassium (3.5-5.1) mmol/L Chloride (98-107) mmol/L Carbon Dioxide (21-32) mmol/L Anion Gap (3-11) BUN (7-18) mg/dl Creatinine (0.6-1.2) mg/dl Est Cr Clr Drug Dosing Est GFR ( Amer) ml/min Est GFR (Non-Af Amer) ml/min BUN/Creatinine Ratio (10-20) Glucose (70-99) mg/dl Lactate (0.4-2.0) mmol/L Calcium (8.5-10.1) mg/dl Phosphorus (2.5-4.9) mg/dl Magnesium (1.8-2.4) mg/dl Total Bilirubin (0.2-1) mg/dl AST (15-37) U/L ALT (12-78) U/L Alkaline Phosphatase (45-117) U/L Troponin I (0-0.045) ng/ml Total Protein (6.4-8.2) gm/dl Albumin (3.4-5.0) gm/dl Globulin (2.5-4.0) gm/dl Albumin/Globulin Ratio (0.9-2) Procalcitonin < 0.05 (0-0.5) ng/ml TSH (0.300-4.500) uIu/ml Urine Color Urine Appearance (Clear) Urine pH (4.5-7.5) Ur Specific [place] (1.000-1.030) Urine Protein (Negative) Urine Glucose (UA) (Negative) Urine Ketones (Negative) Urine Blood (Negative) Urine Nitrite (Negative) Urine Bilirubin (Negative) Urine Urobilinogen (Negative) Ur Leukocyte Esterase (Negative) Urine RBC (0-4) /hpf Urine WBC (0-5) /hpf Ur Epithelial Cells (0-5) /lpf Urine Bacteria (Negative) COVID-19 Eval Order SARS-CoV-2 (PCR) NEGATIVE (Negative) Imaging Data Radiologist's Impression: Chest X-Ray 09/26/20 12:48 XR chest 1V portable CLINICAL HISTORY: weakness COMPARISON STUDY: Chest radiograph and chest CT August 16, 2020. FINDINGS: Patient is rotated. Cardiomegaly and mild dilatation of the ascending aorta are better depicted on recent chest CT. There is no evidence for pulmonary edema or pneumonia. No pneumothorax or pleural effusion is noted. Slight asymmetric interstitial thickening within the right lung is noted. IMPRESSION: 1. Cardiomegaly. Rotated study. 2. Slight asymmetric interstitial thickening within the right lung, a nonspecif ic finding. ACT 112: Negative or not required by law. Electronically signed by: Gabriel Irving M.D. 09/26/2020 1:[address] 09/26/20 12:48 CT SCAN OF THE BRAIN WITHOUT IV CONTRAST CLINICAL HISTORY: Fall. Head injury. COMPARISON STUDY: CT of the brain dated 07/26/2020. TECHNIQUE: Unenhanced axial CT scan of the brain is performed from the vertex to the skull base. A dose lowering technique was utilized adhering to the principles of ALARA. FINDINGS: Brain parenchyma: There are age-related involutional changes noting moderate to advanced confluent subcortical and periventricular microangiopathic change. There is no hemorrhage, mass effect, or evidence of acute territorial ischemia by CT criteria. Ruggiero-white matter differentiation is preserved. No extra-axial fluid collection is seen. Ventricles, sulci, cisterns: Prominent secondary to involutional change. Intracranial vasculature: There is atherosclerotic calcification of the cavernous carotid and vertebral arteries. Calvarium: The skeletal structures are osteopenic. No depressed calvarial fracture is identified. Sinuses and mastoids: The visualized paranasal sinuses are clear. The mastoid air cells are well pneumatized. Orbits: The bony orbits are grossly intact. There are bilateral ocular lens implants. IMPRESSION: There is no hemorrhage, mass effect, or evidence of acute territorial ischemia by CT criteria. ACT 112: Negative or not required by law. Electronically signed by: Porfirio Thomas M.D. 09/26/2020 1:[address] 09/26/20 12:50 CT SCAN OF THE CERVICAL SPINE CLINICAL HISTORY: Falls. Head injury. COMPARISON STUDY: CT of the cervical spine dated 07/26/2020. TECHNIQUE: CT scan of the cervical spine is performed from the skull base to the upper thoracic spine. Images are reviewed in the axial, sagittal, and coronal planes. IV contrast was not administered for this examination. A dose lowering technique was utilized adhering to the principles of ALARA. CT DOSE: 957.00 mGy.cm FINDINGS: Skeletal structures: The skeletal structures are osteopenic. There is no evidence of fracture or subluxation involving the cervical spine. Vertebral body height and alignment are maintained. Small anterior osteophytes are seen throughout. The odontoid process and lateral masses are intact. The atlantoaxial articulation is preserved noting productive degenerative change. The spinous processes appear intact. There is mild to moderate multilevel cervical spondylosis. Uncovertebral and facet arthropathy contribute to neural foraminal narrowing at several levels. There are minimal chronic superior endplate compression deformities of T1, T2, and T3. Intervertebral discs: There is moderate to advanced disc space narrowing at C6- C7. Only minimal disc space narrowing is seen at the remaining cervical levels. Central canal: A posterior disc osteophyte complex at C6-C7 may contribute to mild acquired compromise of the central canal. Soft tissues: The prevertebral and paraspinous soft tissues are within normal limits. There is atherosclerotic calcification of the carotid bulbs. There are numerous calcified tonsilliths. Calvarium: The visualized calvarium at the skull base appears intact. Brain parenchyma: Partially visualized brain parenchyma at the skull base is within normal limits noting age-related involutional change. Sinuses and mastoids: There is trace mucosal thickening within the sphenoid sinuses. Thickening and sclerosis of the sinus allen indicates chronicity. The mastoid air cells are well pneumatized. Lung apices: Clear as visualized. IMPRESSION: 1. There is no evidence of fracture or subluxation involving the cervical spine. 2. Osteopenia and spondylotic change as above. ACT 112: Negative or not required by law. Electronically signed by: Porfirio Thomas M.D. 09/26/2020 1:27 PM Pelvis X-Ray 09/26/20 12:50 XR pelvis 1-2V routine CLINICAL HISTORY: fall, sacral pain COMPARISON: CT of the abdomen and pelvis and pelvis radiograph July 23, 2019. FINDINGS: Sacroiliac joints and symphysis pubis are intact. There is no acute fracture within the pelvis or hips. Moderate vascular calcification is noted. There is mild osteoarthritis of both hips. IMPRESSION: No acute fracture within the pelvis or hips. ACT 112: Negative or not required by law. Electronically signed by: Gabriel Irving M.D. 09/26/2020 1:36 PM Knee X-Ray 09/26/20 14:24 LEFT KNEE 2 VIEWS CLINICAL HISTORY: Left knee injury. FINDINGS: AP and crosstable lateral views of the left knee are obtained. No prior studies are available for comparison at the time of dictation. The skeletal structures are osteopenic. No fracture is seen. There is advanced degenerative narrowing in the medial and patellofemoral compartments. Mild narrowing is seen in the lateral compartment. There are small marginal osteophytes and degenerative beaking of the tibial spine. A moderate joint effusion is noted. Soft tissue edema is seen around the knee. There is atherosclerotic calcification of the popliteal artery. IMPRESSION: 1. Soft tissue swelling and joint effusion with no fracture identified. 2. Osteopenia and degenerative change as above. Electronically signed by: Porfirio Thomas M.D. 09/26/2020 2:57 PM Cervical Spine MRI 09/26/20 15:29 MRI OF THE CERVICAL SPINE WITHOUT IV CONTRAST CLINICAL HISTORY: Fall. Neck pain. COMPARISON STUDY: CT of the cervical spine dated 09/26/2020. TECHNIQUE: MRI of the cervical spine is performed utilizing various T1 and T2- weighted sequences in the axial and sagittal planes. IV contrast was not administered for this examination. FINDINGS: Cervical spine: Vertebral body height and alignment are maintained throughout the cervical spine. There is mild hyperlordosis. The atlantodental articulation is preserved. The spinous processes appear intact. No destructive bony lesion is seen. Small anterior osteophytes are seen in the lower cervical region. There are mild chronic superior endplate compression deformities of T1, T2, and T3. Intervertebral discs: Degenerative disc desiccation and loss of height is seen throughout the cervical spine. Loss of height is moderate at C6-C7. Spinal cord: The cervical spinal cord is normal in morphology and signal intensity. C2-C3: A posterior disc osteophyte complex minimally effaces the ventral subarachnoid space. Uncovertebral and facet arthropathy contribute to mild right neural foraminal stenosis. C3-C4: A posterior disc osteophyte complex abuts the ventral cord. Uncovertebral and facet arthropathy cause moderate to severe right and mild left neural foraminal stenosis. C4-C5: A posterior disc osteophyte complex minimally effaces the ventral cord. Uncovertebral and facet arthropathy cause mild left and minimal right neural foraminal stenosis. C5-C6: A posterior disc osteophyte complex minimally effaces the ventral cord. Mild facet arthropathy is of no consequence. The neural foramina appear clear. C6-C7: A posterior disc osteophyte complex abuts the ventral cord. Uncovertebral and facet arthropathy cause mild left and minimal right neural foraminal stenosis. C7-T1: Unremarkable. Soft tissues: The prevertebral and paraspinous soft tissues are normal as visualized. Brain parenchyma: The cerebellar tonsils are normal in configuration. A chronic lacunar infarct is questioned in the christopher. IMPRESSION: 1. No acute abnormality is identified involving the cervical spine. 2. Spondylotic change as above. See discussion for detailed level by level analysis. 3. The cervical spinal cord is normal in morphology and signal intensity. Dictated: 09/26/2020 4:49 PM Transcribed: 09/26/2020 5:03 PM Madhavi [id number] [id number] Electronically signed by: Porfirio Thomas M.D. 09/26/2020 5:[address] 09/26/20 16:57 CT SCAN OF THE CHEST WITHOUT IV CONTRAST CLINICAL HISTORY: Falls. COMPARISON STUDY: Chest x-ray dated 09/26/2020. Chest CT scans dated 08/16/2020 and 03/22/2013. TECHNIQUE: CT scan of the thorax was performed from the thoracic inlet to the upper abdomen. Images are reviewed in the axial, sagittal, and coronal planes. IV contrast was not administered for this examination as per the referring clinician. A dose lowering technique was utilized adhering to the principles of ALARA. The examination is degraded by motion artifact, as well as by streak artifact from the arms which could not be elevated above the chest. CT DOSE: 312.31 mGycm FINDINGS: Thyroid: Imaged portions of the thyroid gland are normal in size and attenuation. Thoracic aorta: The thoracic aorta is normal in caliber and demonstrates standard 3-vessel arch anatomy. Heart: The heart is enlarged noting trace pericardial effusion. The coronary arteries are densely calcified. Lungs and pleural spaces: Evaluation of the lung parenchyma is modestly degraded by motion artifact. There is no airspace consolidation, pleural effusion, or pneumothorax. The trachea and central airways are clear. Foci of scarring/atelectasis are present throughout both lungs. Mediastinum: There is no mediastinal hematoma or lymphadenopathy. Debris is noted within the upper esophagus. Kaitlin: Not well assessed without IV contrast. Axillae: There is no axillary lymphadenopathy. Upper abdomen: The gallbladder is surgically absent. There is a 3 mm nonobstructing right renal calculus. Partially visualized upper abdominal viscera is otherwise within normal limits. Skeletal structures: The skeletal structures are osteopenic. The bony thorax appears intact. No lytic or blastic bony lesions are seen. Degenerative change and hyperkyphosis is noted in the thoracic spine. Minimal chronic compression deformities in the upper thoracic region are unchanged. Degenerative change is again seen in the shoulders, with bursal fluid on the right. IMPRESSION: 1. Streak and motion compromised examination. 2. There is no airspace consolidation, pleural effusion, or pneumothorax. 3. The bony thorax appears intact. 4. Debris is noted in the upper esophagus. Note that this may place the patient at risk for aspiration. 5. Cardiomegaly with advanced coronary artery calcification. 6. Additional findings as above. ACT 112: Negative or not required by law. Electronically signed by: Porfirio Thomas M.D. 09/26/2020 7:04 PM ECG Data Attestation: I personally reviewed and interpreted this ECG as follows: Indication: + weakness Rate (beats per minute): 68 Rhythm: + normal sinus ECG Intervals/blocks: + Normal QT ECG ST segments: + Nonspecific ST abnormalities ECG Findings: + Other (For quality baseline for interpretation); no PACs and no PVCs Blood Pressure Blood Pressure Findings: Normal blood pressure Blood Pressure Disposition: did not require urgent referral Head Trauma GCS Score: 15 MDM Narrative This patient was evaluated and appeared to be in some discomfort but no distres s. IV access was obtained and laboratory work was drawn. An order for cardiac monitoring was placed and the patient is noted to be in a normal sinus rhythm and any 5 bpm. She was gently hydrated with normal saline solution. CT imaging of the head and neck was performed and is negative for acute intracranial hemorrhage and cervical spine injury. Patient did receive IV fentanyl 25 mcg and 4 mg of IV Zofran. X-ray of the pelvis was obtained and is negative for acute fracture. Nursing staff attempted to stand the patient at the bedside but was unsuccessful. [place] was ordered however not administered as the patient did not tolerate the fentanyl well. IV Tylenol was ordered. An x-ray of the left knee was ordered and is negative for acute fracture however an effusion is present. Patient's laboratory work is reassuring. Urinalysis is negative and will be sent for culture. Patient was given her carbidopa/levodopa both extended release and immediate release. Given her continued discomfort despite negative C-spine CT, and MRI of the C-spine was ordered and the case was discussed with the hospitalist service. Patient will likely require inpatient rehabilitation services however according to case management she will work require PT/OT evaluation and hospitalization. Patient and daughter were informed of the findings and plan and agree. Impression & Plan CHI (closed head injury), Parkinson's disease, Frequent falls, Acute cervical myofascial strain, Ambulatory dysfunction Discharge Plan Visit Data Chief Complaint: Neck Injury/Pain ED Provider: Radha Blackwood Discharge Problem: CHI (closed head injury), Parkinson's disease, Frequent falls, Acute cervical myofascial strain, Ambulatory dysfunction Patient Disposition: Admitted As Inpatient Forms Stand Alone Forms: [facility] Prescriptions Prescriptions: No Action atorvastatin 40 mg Tablet 40 mg PO HS RF: 0 carbidopa-levodopa 50-200 mg Tablet Extended Release 1 tab PO HS RF: 0 carbidopa-levodopa 25-100 mg Tablet 1 tab PO QID RF: 0 rasagiline [Azilect] 1 mg tablet 1 mg PO QAM RF: 0 melatonin 5 mg Tablet 5 mg PO HS RF: 0 clotrimazole 10 mg romario 10 mg PO 5XD RF: 0 cetirizine [Zyrtec] 10 mg Tablet 10 mg PO QAM RF: 0 sucralfate 1 gram tablet 1 g PO QID RF: 0 sertraline 100 mg tablet 100 mg PO QAM RF: 0 aspirin [Aspir-81] 81 mg Tablet,Delayed Release (Dr/Ec) 81 mg PO QAM RF: 0 acetaminophen [Tylenol Extra Strength] 500 mg Tablet 500 mg PO Q6H PRN (Reason: Pain) RF: 0 pantoprazole 20 mg tablet,delayed release (DR/EC) 20 mg PO DAILYBB RF: 0 cholecalciferol (vitamin D3) [Vitamin D3] 25 mcg (1,000 unit) Capsule 25 mcg PO QAM RF: 0 Ocuvite with Lutein 1,000 unit-200 mg-60 unit-2 mg Tablet 1 tab PO QAM RF: 0 carbidopa-levodopa 25-100 mg tablet extended release 1 tab PO DAILY RF: 0 Referrals Referrals: Raisa Martin MD [Primary Care Provider] - Discharge Problem: CHI (closed head injury) Qualifiers: Encounter type: initial encounter Qualified Code(s): S09.90XA - Unspecified injury of head, initial encounter Acute cervical myofascial strain Qualifiers: Encounter type: initial encounter Qualified Code(s): S16.1XXA - Strain of musc le, fascia and tendon at neck level, initial encounter
[2020-09-26] MEDS ORDERED: ACETAMINOPHEN HOME PACK 500 MG TABLET PO PRN (21:21)
[2020-09-26] MEDS ORDERED: ONDANSETRON INJ 2 MG/ML 2 ML VIAL IV PRN (21:21)
[2020-09-26] MEDS ORDERED: ACETAMINOPHEN 325 MG TAB PO PRN (21:21)
[2020-09-26] MEDS: MELATONIN 3 MG TAB PO SCH (23:09)
[2020-09-26] MEDS: SUCRALFATE 1 GM TAB PO SCH (23:10)
[2020-09-26] MEDS: CLOTRIMAZOLE 10 MG TROCHE BUCCAL SCH (23:11)
[2020-09-26] MEDS: ATORVASTATIN 40 MG TAB PO SCH (23:11)
[2020-09-26] MEDS: HEPARIN SOD 5,000 UNIT/0.5 ML VIAL SQ SCH (23:13)
[2020-09-26] MEDS ORDERED: CARBIDOPA/LEVODOPA 25/100MG TAB PO PRN (23:19)
[2020-09-26] MEDS ORDERED: CARBIDOPA/LEVODOPA 50/200MG EXT REL TAB PO SCH (23:30)
[2020-09-27] MEDS: CLOTRIMAZOLE 10 MG TROCHE BUCCAL SCH ×5 (06:14→19:21)
[2020-09-27] MEDS: PANTOprazole 40 MG TAB PO SCH (06:14)
[2020-09-27 06:52] LABS: Hematocrit (blood only) 37.8 % (37-47); Hemoglobin 12.3 g/dL (12.0-16.0); Mean Corpuscular Hemoglobin 28.5 pg (25-34); Mean Corpuscular Hgb Conc 32.5 g/dL (32-36); Mean Corpuscular Volume 87.5 fL (80-100); Mean Platelet Volume 9.8 fL (7.4-10.4); Platelet Count 232 K/uL (130-400); RDW Standard Deviation 48.2 fL (36.4-46.3); Red Blood Count 4.32 M/uL (4.2-5.4); White Blood Count 7.75 K/uL (4.8-10.8)
[2020-09-27 07:14] LABS: Albumin Level 3.3 gm/dl (3.4-5.0); BUN Creatinine Ratio 24.1 (10-20); Calcium 8.7 mg/dl (8.5-10.1); Creatinine Clr Calc Pharmacy 42.1 ml/min; Est GFR (African American) 76.6 ml/min; Est GFR (Non-African American) 66.1 ml/min; Potassium 3.9 mmol/L (3.5-5.1)
[2020-09-27 07:21] LABS: Albumin Globulin Ratio 1.1 (0.9-2); Phosphorus 2.7 mg/dl (2.5-4.9); Total Protein 6.3 gm/dl (6.4-8.2); Troponin I 0.199 ng/ml (0-0.045)
[2020-09-27 07:47] LABS: Estimated Average Glucose 131 mg/dl; Hemoglobin A1C 6.2 % (4.5-5.6)
[2020-09-27] MEDS: ASPIRIN 81 MG ECTAB PO SCH (08:51)
[2020-09-27] MEDS: SUCRALFATE 1 GM TAB PO SCH (08:51)
[2020-09-27] MEDS: CEROVITE ADV FORMULA TAB PO SCH (08:51)
[2020-09-27] MEDS: CARBIDOPA/LEVODOPA 25/100MG TAB PO SCH ×4 (08:51→16:01)
[2020-09-27] MEDS: HEPARIN SOD 5,000 UNIT/0.5 ML VIAL SQ SCH ×3 (08:52→20:22)
[2020-09-27] MEDS: CHOLECALCIFEROL 1,000 UNITS 25 MCG TAB PO SCH (08:52)
[2020-09-27] MEDS: CETIRIZINE HCL 10 MG TABLET PO SCH (08:52)
[2020-09-27] MEDS: SERTRALINE HCL 100 MG TABLET PO SCH (08:52)
[2020-09-27] MEDS ORDERED: CARBIDOPA/LEVODOPA 25/100MG EXT REL TAB PO SCH (09:00)
--- NOTE | 2020-09-27 10:43 | Cardiology Consultation ---
Date of Consultation September 27, 2020 Assessment & Plan (1) Abnormal EKG: Patient is an 79-year-old female with complex issues as outlined who presents after repeat fall possible orthostatic mediated. EKG concerning for possible lateral infarct but likely represents lead reversal Troponins chronically elevated No evidence suggest acute coronary syndrome historically or by exam Recommendations: Repeat EKG Consider restarting midodrine (2) Parkinson's disease: (3) Frequent falls: (4) Elevated troponin: (5) CAD (coronary artery disease): History of Present Illness Reason for Consultation: Abnormal EKG, orthostatic hypotension with falls Requesting Physician: Dr. Juarez Attending Physician: Suzanne Juarez, DO History of Present Illness Patient is an 79-year-old female with complex history which includes 1. Parkinsonism with marked dysmetria, orthostatic hypotension with multiple falls 2. Hypertension 3. Chronic ischemic heart disease without angina status post multiple coronary inventions, RCA and left circumflex 2007, mid RCA April 2008, RCA March 2013 4. Dyslipidemia 5. Chronic troponin elevation 6. Preserved systolic function Patient once again presents this admission noting recent multiple falls. No chest pains or shortness of breath did suffer neck and head injury overnight. Notes lightheadedness and dizziness with standing. No fevers chills unexplained infections. No bleeding difficulties. No orthopnea or worsening peripheral edema. Appetite fair with ongoing weight loss down 40 pounds over the past years time Currently without cardiac complaint Historically had midodrine discontinued due to labile hypertension recently EKG this morning with concerns regarding lateral infarct likely lead reversal, chronic troponin elevation Allergies Allergy/AdvReac Type Severity Reaction Status Date / Time celecoxib AdvReac Intermediate GI SYMPTOMS Verified 09/26/20 14:28 hydrocodone AdvReac Unknown STOMACH Verified 09/26/20 14:28 IRRITATION Home Medications Medication Instructions Recorded Confirmed Type atorvastatin 40 mg PO HS 06/25/19 09/26/20 History carbidopa-levodopa 1 tab PO HS 06/25/19 09/26/20 History carbidopa-levodopa 1 tab PO QID 07/13/19 09/26/20 History rasagiline [Azilect] 1 mg PO QAM 07/13/19 09/26/20 History melatonin 5 mg PO HS 01/07/20 09/26/20 History cetirizine [Zyrtec] 10 mg PO QAM 08/16/20 09/26/20 History clotrimazole 10 mg PO 5XD 08/16/20 09/26/20 History sertraline 100 mg PO QAM 08/16/20 09/26/20 History sucralfate 1 g PO QID 08/16/20 09/26/20 History acetaminophen [Tylenol Extra 500 mg PO Q6H PRN 09/26/20 09/26/20 History Strength] aspirin [Aspir-81] 81 mg PO QAM 09/26/20 09/26/20 History carbidopa-levodopa 1 tab PO DAILY 09/26/20 09/26/20 History cholecalciferol (vitamin D3) 25 mcg PO QAM 09/26/20 09/26/20 History [Vitamin D3] pantoprazole 20 mg PO DAILYBB 09/26/20 09/26/20 History vit A,C and A-qbhboq-skrhljvk 1 tab PO QAM 09/26/20 09/26/20 History [Ocuvite with Lutein] Patient History Medical History Anxiety CAD (coronary artery disease) Status post August 2007 PCI of both the RCA and LCX with FABIOLA Status post April 2008 PCI of the mid RCA with 2 FABIOLA Status post May 2008 PCI of the proximal LAD Status post March 2013 PCI of the RCA with a FABIOLA GERD (gastroesophageal reflux disease) Hyperlipidemia Hypertension Hypothyroidism Parkinson disease Prediabetes Per records Surgical History History of ankle surgery LEFT History of appendectomy History of arthroplasty of right knee x 2 per records History of cardiac cath 08/2007, 04/2008, 2008, 2012 History of cholecystectomy Per records History of colonoscopy History of herniorrhaphy Per records History of hysterectomy History of thumb surgery Per records- right thumb Hx of angioplasty FOLLOWS [place] Family History Mother Diabetes Brother Myocardial infarction Social History Smoking Status: Unknown if ever smoked Second Hand Exposure: No; Hx Alcohol Use: No Hx Substance Use: No Preferred Language: [place]ian Communication Ability: Effective [employer] Architect Required: No Beliefs That Will Affect Care: None marital status: Current Living Situation: Spouse Other Information That Helps Us Care for You: No Feels Safe at Home: Yes Safety Concerns: Feels Safe At This Time Assistive Devices: Oxygen - at Night and Walker Review of Systems Review of Systems: All systems reviewed & are unremarkable except as noted in HPI & below Physical Exam Constitutional: + frail appearing Eyes: PERRL, conjunctivae normal, anicteric sclerae ENMT: external ear and nose normal, oropharynx normal Neck: trachea midline, no thyromegaly Respiratory: normal respiratory effort, lungs clear to auscultation Cardiovascular: Rate/Rhythm: regular rate and regular rhythm Heart Sounds: no murmur Vessels: no JVD Extremities: no edema Chest (Breasts): Chest: normal inspection of chest Gastrointestinal (Abdomen): normal bowel sounds, soft, nontender, no hepatosplenomegaly Skin: no rashes, warm and dry Neurologic: Motor/Sensory: + tremor Results & Data ([facility]) Vital Signs (Past 12 Hours) Vital Signs Temp Pulse Resp BP Pulse Ox 09/27/20 08:13 36.4 C L 88 18 112/72 99 09/27/20 04:14 36.5 C 78 17 138/77 100 09/26/20 23:12 36.6 C 82 17 119/68 95 Laboratory Results Laboratory Results - last 24 hr 09/26/20 09/26/20 09/26/20 14:25 14:51 14:51 WBC 13.75 H RBC 4.79 Hgb 14.1 Hct 42.6 MCV 88.9 MCH 29.4 MCHC 33.1 RDW Std Deviation 48.4 H RDW Coeff of Ananya 15.0 H Plt Count 262 MPV 10.2 Immature Gran % (Auto) 0.3 Neut % (Auto) 83.8 Lymph % (Auto) 6.7 [place] % (Auto) 8.9 Eos % (Auto) 0.2 Baso % (Auto) 0.1 Neut # (Auto) 11.53 H Lymph # (Auto) 0.92 L [place] # (Auto) 1.22 H Eos # (Auto) 0.03 Baso # (Auto) 0.01 Immature Gran # (Auto) 0.04 H Sodium 138 Potassium 3.5 Chloride 101 Carbon Dioxide 29 Anion Gap 8.0 BUN 20 H Creatinine 0.83 Est Cr Clr Drug Dosing Not Reportable Est GFR ( Amer) 76.6 Est GFR (Non-Af Amer) 66.1 BUN/Creatinine Ratio 23.5 H Glucose 109 H Estimat Average Glucose Hemoglobin A1c Lactate Calcium 9.2 Phosphorus Magnesium 1.8 Total Bilirubin 1.0 AST 23 ALT 18 Alkaline Phosphatase 93 Troponin I 0.119 H* Total Protein 7.2 Albumin 4.0 Globulin 3.2 Albumin/Globulin Ratio 1.2 Procalcitonin TSH 0.551 Urine Color Yellow Urine Appearance Clear Urine pH 6.0 Ur Specific [place] 1.020 Urine Protein Trace H Urine Glucose (UA) Negative Urine Ketones Trace H Urine Blood Trace-intact H Urine Nitrite Negative Urine Bilirubin Negative Urine Urobilinogen Negative Ur Leukocyte Esterase Negative Urine RBC 5-10 H Urine WBC 0-5 Ur Epithelial Cells 0-5 Urine Bacteria Negative COVID-19 Eval Order SARS-CoV-2 (PCR) 09/26/20 09/26/20 09/26/20 14:51 14:51 15:41 WBC RBC Hgb Hct MCV MCH MCHC RDW Std Deviation RDW Coeff of Ananya Plt Count MPV Immature Gran % (Auto) Neut % (Auto) Lymph % (Auto) [place] % (Auto) Eos % (Auto) Baso % (Auto) Neut # (Auto) Lymph # (Auto) [place] # (Auto) Eos # (Auto) Baso # (Auto) Immature Gran # (Auto) Sodium Potassium Chloride Carbon Dioxide Anion Gap BUN Creatinine Est Cr Clr Drug Dosing Est GFR ( Amer) Est GFR (Non-Af Amer) BUN/Creatinine Ratio Glucose Estimat Average Glucose Hemoglobin A1c Lactate 1.6 Calcium Phosphorus 2.7 Magnesium Total Bilirubin AST ALT Alkaline Phosphatase Troponin I Total Protein Albumin Globulin Albumin/Globulin Ratio Procalcitonin TSH Urine Color Urine Appearance Urine pH Ur Specific [place] Urine Protein Urine Glucose (UA) Urine Ketones Urine Blood Urine Nitrite Urine Bilirubin Urine Urobilinogen Ur Leukocyte Esterase Urine RBC Urine WBC Ur Epithelial Cells Urine Bacteria COVID-19 Eval Order Covid19 at [facility] SARS-CoV-2 (PCR) 09/26/20 09/26/20 09/26/20 15:41 17:16 21:33 WBC RBC Hgb Hct MCV MCH MCHC RDW Std Deviation RDW Coeff of Ananya Plt Count MPV Immature Gran % (Auto) Neut % (Auto) Lymph % (Auto) [place] % (Auto) Eos % (Auto) Baso % (Auto) Neut # (Auto) Lymph # (Auto) [place] # (Auto) Eos # (Auto) Baso # (Auto) Immature Gran # (Auto) Sodium Potassium Chloride Carbon Dioxide Anion Gap BUN Creatinine Est Cr Clr Drug Dosing Est GFR ( Amer) Est GFR (Non-Af Amer) BUN/Creatinine Ratio Glucose Estimat Average Glucose Hemoglobin A1c Lactate Calcium Phosphorus Magnesium Total Bilirubin AST ALT Alkaline Phosphatase Troponin I 0.194 H* Total Protein Albumin Globulin Albumin/Globulin Ratio Procalcitonin < 0.05 TSH Urine Color Urine Appearance Urine pH Ur Specific [place] Urine Protein Urine Glucose (UA) Urine Ketones Urine Blood Urine Nitrite Urine Bilirubin Urine Urobilinogen Ur Leukocyte Esterase Urine RBC Urine WBC Ur Epithelial Cells Urine Bacteria COVID-19 Eval Order SARS-CoV-2 (PCR) NEGATIVE 09/27/20 09/27/20 09/27/20 06:34 06:34 06:34 WBC 7.75 RBC 4.32 Hgb 12.3 Hct 37.8 MCV 87.5 MCH 28.5 MCHC 32.5 RDW Std Deviation 48.2 H RDW Coeff of Ananya 15.0 H Plt Count 232 MPV 9.8 Immature Gran % (Auto) Neut % (Auto) Lymph % (Auto) [place] % (Auto) Eos % (Auto) Baso % (Auto) Neut # (Auto) Lymph # (Auto) [place] # (Auto) Eos # (Auto) Baso # (Auto) Immature Gran # (Auto) Sodium 142 Potassium 3.9 Chloride 107 Carbon Dioxide 31 Anion Gap 4.0 BUN 20 H Creatinine 0.83 Est Cr Clr Drug Dosing 42.1 Est GFR ( Amer) 76.6 Est GFR (Non-Af Amer) 66.1 BUN/Creatinine Ratio 24.1 H Glucose 114 H Estimat Average Glucose Hemoglobin A1c Lactate Calcium 8.7 Phosphorus 2.7 Magnesium 2.0 Total Bilirubin 1.0 AST 18 ALT 7 L Alkaline Phosphatase 79 Troponin I 0.199 H* Cancelled Total Protein 6.3 L Albumin 3.3 L Globulin 3.0 Albumin/Globulin Ratio 1.1 Procalcitonin TSH Urine Color Urine Appearance Urine pH Ur Specific [place] Urine Protein Urine Glucose (UA) Urine Ketones Urine Blood Urine Nitrite Urine Bilirubin Urine Urobilinogen Ur Leukocyte Esterase Urine RBC Urine WBC Ur Epithelial Cells Urine Bacteria COVID-19 Eval Order SARS-CoV-2 (PCR) 09/27/20 06:34 WBC RBC Hgb Hct MCV MCH MCHC RDW Std Deviation RDW Coeff of Ananya Plt Count MPV Immature Gran % (Auto) Neut % (Auto) Lymph % (Auto) [place] % (Auto) Eos % (Auto) Baso % (Auto) Neut # (Auto) Lymph # (Auto) [place] # (Auto) Eos # (Auto) Baso # (Auto) Immature Gran # (Auto) Sodium Potassium Chloride Carbon Dioxide Anion Gap BUN Creatinine Est Cr Clr Drug Dosing Est GFR ( Amer) Est GFR (Non-Af Amer) BUN/Creatinine Ratio Glucose Estimat Average Glucose 131 Hemoglobin A1c 6.2 H Lactate Calcium Phosphorus Magnesium Total Bilirubin AST ALT Alkaline Phosphatase Troponin I Total Protein Albumin Globulin Albumin/Globulin Ratio Procalcitonin TSH Urine Color Urine Appearance Urine pH Ur Specific [place] Urine Protein Urine Glucose (UA) Urine Ketones Urine Blood Urine Nitrite Urine Bilirubin Urine Urobilinogen Ur Leukocyte Esterase Urine RBC Urine WBC Ur Epithelial Cells Urine Bacteria COVID-19 Eval Order SARS-CoV-2 (PCR)
--- NOTE | 2020-09-27 11:17 | Hospitalist Progress Note ---
Date of Service September 27, 2020 Assessment & Plan (1) Parkinson's disease: She continues on Sinemet 6 pills daily per her home regimen. Reports having been tried on rasigiline as outpatient but this made her sick and she stopped it. (This is currently ordered but has not been given to her as it is nonformulary. Will hold until I can verify she is taking this with her daughter.) She states she is overall better from a PD standpoint. Multiple issues for this hospitalization linked closely with this diagnosis. (2) Cervical (neck) region somatic dysfunction: Uncertain if this is an acquired cervical dystonia (torticollis) related to trauma vs parkinson-related dystonia. Supportive care. Appreciate Neurology thoughts. (3) Ambulatory dysfunction: Related to Parkinson's, vertigo-PT/OT (4) Vertigo: Significant, occurring with any head turning which is difficult for her. Contributing to her frequent falls. Needs to be better controlled with additional workup as directed by Neurology prior to any rehab efforts for these to be successful. Appreciate Neuro recommendations. (5) Frequent falls: Autonomic dysfunction and significant tremors related to Parkinsons disease present. Also, patient with worsening vertigo for two months now contributing to her falls. Significant cervical ROM restriction with pain as above. PT/OT and additional therapies as noted. (6) Elevated troponin: has h/o elevated troponin in the past, trended overnight without accelerated rise. No EKG concerns for acute ischemia (noted limb lead reversal on first EKG this morning). Cardiology consulted. No further workup at this time. Will check CK as non-traumatic rhabdo a possible contributor. (7) CAD (coronary artery disease): chronic, stable. Known disease with stent placement in 2012, h/o ICM with improved EF over time with medications. Cont current medical therapy. (8) Leukocytosis: resolved, doesn't appears to have been related to infection. (9) Hyperglycemia: resolved, no evidence of DMII. A1C 6.2 (10) Hypothyroid: chronic, stable, cont home dose levothyroxine (11) CKD (chronic kidney disease), stage III: at baseline. (12) Anxiety: - Cont zoloft 100 mg daily per home regimen. (13) CHI (closed head injury): Multiple recent falls at home. CT head on admission reveals no hemorrhage, mass effect, or evidence of acute territorial ischemia by CT criter ia. (14) DVT prophylaxis: Heparin CODE: Conditional: no intubation/ventilation. Ok with chest compressions/IV medication. Dispo: presented from home, however, considering transition through rehab program as transition back to home at discharge. PT/OT to evaluate. Currently, vertigo too debilitating for her to move too much. Will attempt to get this mo re under control prior to discharge. Suzanne Juarez DO [facility] Hospitalist Admission and Anticipated Discharge Date Admission Date: September 26, 2020 Subjective The patient is an 79-year-old female with known history of Parkinson's disease who presented to the ER after the home health nurse discovered she was unable to get out of bed. She had multiple falls over the last 4 days, which she reports are secondary to vertigo and lightheadedness. She denies any loss of consc iousness but has sustained multiple head injuries. She also has significant pain in her neck that is acute and she is unable to move her head. Multiple imaging modalities performed on her C-spine including an MRI, CT which were negative for fracture. Multiple osteophyte complexes are seen but normal cervical spinal cord morphology and signal intensity present. CT of the chest reveals no airspace consolidation, pleural effusion or pneumothorax. Foci of scarring/atelectasis is present throughout both lungs. She is notably on oxygen this morning but no history of oxygen supplementation at home. She notably had fentanyl in the ER, and this was thought to be placed out of precaution. She was also admitted with an elevated troponin which did not increase significantly overnight and she remained chest pain-free. She admits to occasional shortness of breath with exertion, but history is questionable as this only occurs at night? Cardiology was consulted with the history of CAD. No further work-up for elevated troponin recommended at this time. On initial EKG she had T wave inversions in the lateral leads. A repeat EKG performed the following morning revealed Q waves in 1 and aVL, however limb lead reversal was present. On repeat EKG no Q waves are present. The patient reports her biggest concern is her vertigo which is now been present for a couple of months. She is not sure what is triggering this. She has had medication changes including discontinuation of Lasix and midodrine and a decrease in her Sinemet. She is still reporting pain in her neck this morning. Review of Systems Review of Systems: All systems reviewed & are unremarkable except as noted in Subjective Physical Exam Physical Exam: CONSTITUTIONAL: WNWD, vitals as above, generally well- appearing, EYES: EOMI bilaterally, pupils are round and equal to light, normal conjunctivae, no scleral icterus HEAD: green-yellow area of ecchymosis approx 5-7cm in diameter on left forehead, small area of dried blood with TTP in posteroparietal skull on right ENT: external ear and nose normal, oropharynx clear, no TM abnormality NECK: trachea midline, no lymphadenopathy, strap muscles tight, ropey, tender to palpation. Restricted ROM of cervical spine. Min head motion triggers verti go per patient. RESPIRATORY: clear to auscultation bilaterally, no crackles, rales or wheezes, normal respiratory effort CARDIOVASCULAR: regular rate and rhythm, S1 and 2 heard without murmurs, gallops or rubs, no JVD, no peripheral edema CHEST: inspection of chest was normal GASTROINTESTINAL: normal bowel sounds, soft, nontender, nondistended, no guarding. MUSCULOSKELETAL: strength 5/5 throughout, head is normocephalic and atraumatic SKIN: warm and dry NEUROLOGIC: Total body tremors, Unable to elicit patellar DTR 2/2 who body tremor, CN 2-12 grossly intact, no sensory deficit, normal cognition, normal speech PSYCHIATRIC: alert cooperative and oriented Results & Data Results & Data ([facility]) Vital Signs (Past 12 Hours) Vital Signs Temp Pulse Resp BP Pulse Ox 09/27/20 08:13 36.4 C L 88 18 112/72 99 09/27/20 04:14 36.5 C 78 17 138/77 100 Laboratory Results Short CBC 09/26/20 09/27/20 Range/Units 14:51 06:34 WBC 13.75 H 7.75 (4.8-10.8) K/uL Hgb 14.1 12.3 (12.0-16.0) g/dL Hct 42.6 37.8 (37-47) % Plt Count 262 232 (130-400) K/uL BMP 09/26/20 09/27/20 14:51 06:34 Sodium 138 142 Potassium 3.5 3.9 Chloride 101 107 Carbon Dioxide 29 31 BUN 20 H 20 H Creatinine 0.83 0.83 Glucose 109 H 114 H Calcium 9.2 8.7 Cardiac Enzymes 09/26/20 09/26/2009/27/21 Range/Units 14:51 21:33 06:34 Troponin I 0.119 H* 0.194 H* 0.199 H* (0-0.045) ng/ml 09/27/20 Range/Units 06:34 Troponin I Cancelled (0-0.045) ng/ml Liver Function 09/26/20 09/27/20 Range/Units 14:51 06:34 Total Bilirubin 1.0 1.0 (0.2-1) mg/dl AST 23 18 (15-37) U/L ALT 18 7 L (12-78) U/L Alkaline Phosphatase 93 79 (45-117) U/L Albumin 4.0 3.3 L (3.4-5.0) gm/dl Urine 09/26/20 Range/Units 14:25 Urine Color Yellow Urine Appearance Clear (Clear) Urine pH 6.0 (4.5-7.5) Ur Specific [place] 1.020 (1.000-1.030) Urine Protein Trace H (Negative) Urine Glucose (UA) Negative (Negative) Medications Administered Current Inpatient Medications Acetaminophen (Acetaminophen 325 Mg Tab) 650 mg PO Q4H PRN PRN Reason: Moderate Pain Stop: 10/26/20 21:20 Aspirin (Aspirin 81 Mg Ectab) 81 mg PO QAM [facility] Stop: 10/27/20 08:59 Last Admin: 09/27/20 08:51 Dose: 81 mg Documented by: Atorvastatin Calcium (Atorvastatin 40 Mg Tab) 40 mg PO HS [facility] Stop: 10/26/20 21:20 Last Admin: 09/26/20 23:11 Dose: 40 mg Documented by: Carbidopa/Levodopa (Carbidopa/Levodopa 25/100mg Ext Rel Tab) 1 tab PO DAILY JESUS Stop: 10/27/20 08:59 Last Admin: 09/27/20 08:51 Dose: 1 tab Documented by: Carbidopa/Levodopa (Carbidopa/Levodopa 50/200mg Ext Rel Tab) 1 tab PO HS JESUS Stop: 10/26/20 23:29 Last Admin: 09/26/20 23:59 Dose: 1 tab Documented by: Carbidopa/Levodopa (Carbidopa/Levodopa 25/100mg Tab) 1 tab PO QID JESUS Stop: 10/26/20 23:29 Last Admin: 09/27/20 08:51 Dose: 1 tab Documented by: Carbidopa/Levodopa (Carbidopa/Levodopa 25/100mg Tab) 0.5 - 1 tab PO BID PRN PRN Reason: Parkinson's symptoms Stop: 10/26/20 23:18 Cetirizine HCl (Cetirizine Hcl 10 Mg Tablet) 10 mg PO QAM [facility] Stop: 10/27/20 08:59 Last Admin: 09/27/20 08:52 Dose: 10 mg Documented by: Clotrimazole (Clotrimazole 10 Mg Teena) 10 mg BUCCAL [id number] [facility] Stop: 10/06/20 21:20 Last Admin: 09/27/20 08:51 Dose: 10 mg Documented by: Heparin Sodium (Porcine) (Heparin Sod 5,000 Unit/0.5 Ml Vial) 5,000 units SQ Q12 [facility] Stop: 10/26/20 20:59 Last Admin: 09/27/20 08:52 Dose: 5,000 units Documented by: Melatonin (Melatonin 3 Mg Tab) 4.5 mg PO HS [facility] Stop: 10/26/20 21:20 Last Admin: 09/26/20 23:09 Dose: 4.5 mg Documented by: Miscellaneous (Rasagiline [Azilect]: Order Awaiting Action) 1 ea N/A QS [facility] Stop: 10/27/20 07:59 Last Admin: 09/27/20 07:00 Dose: Not Given Documented by: Multivitamins/Minerals (Cerovite Adv Formula Tab) 1 tab PO QAM [facility] Stop: 10/27/20 08:59 Last Admin: 09/27/20 08:51 Dose: 1 tab Documented by: Ondansetron HCl (Ondansetron Inj 2 Mg/Ml 2 Ml Vial) 4 mg IV Q4H PRN PRN Reason: Nausea And Vomiting Stop: 10/26/20 21:20 Pantoprazole Sodium (Pantoprazole 40 Mg Tab) 40 mg PO DAILYBB [facility] Stop: 10/27/20 06:29 Last Admin: 09/27/20 06:14 Dose: 40 mg Documented by: Sertraline HCl (Sertraline Hcl 100 Mg Tablet) 100 mg PO QAM [facility] Stop: 10/27/20 08:59 Last Admin: 09/27/20 08:52 Dose: 100 mg Documented by: Sucralfate (Sucralfate 1 Gm Tab) 1 gm PO QID [facility] Stop: 10/26/20 21:20 Last Admin: 09/27/20 08:51 Dose: 1 gm Documented by: Vitamin D (Cholecalciferol 1,000 Units 25 Mcg Tab) 1,000 units PO QAM [facility] Stop: 10/27/20 08:59 Last Admin: 09/27/20 08:52 Dose: 1,000 units Documented by: (1) CHI (closed head injury) Encounter type: initial encounter Qualified Code(s): S09.90XA - Unspecified injury of head, initial encounter
--- NOTE | 2020-09-27 12:53 | Electrocardiogram Report ---
Test Reason : Blood Pressure : / mmHG Vent. Rate : 086 BPM Atrial Rate : 086 BPM P-R Int : 204 ms QRS Dur : 088 ms QT Int : 388 ms P-R-T Axes : 072 205 238 degrees QTc Int : 464 ms limb lead reversal Normal sinus rhythm Lateral infarct , age undetermined Abnormal ECG When compared with ECG of 26-SEP-2020 13:09, QRS axis Shifted left Lateral infarct is now Present Confirmed by Wei Clark ([id number]) on 09/27/2020 12:53:18 PM Referred By: REFERRED SELF Confirmed By:Jose Clark
--- NOTE | 2020-09-27 12:54 | Electrocardiogram Report ---
Test Reason : Blood Pressure : / mmHG Vent. Rate : 085 BPM Atrial Rate : 085 BPM P-R Int : 190 ms QRS Dur : 088 ms QT Int : 392 ms P-R-T Axes : 054 -22 -16 degrees QTc Int : 466 ms Normal sinus rhythm with sinus arrhythmia Nonspecific T wave abnormality Abnormal ECG When compared with ECG of 27-SEP-2020 07:46, (unconfirmed) QRS axis Shifted right Confirmed by Wei Clark ([id number]) on 09/27/2020 12:54:03 PM Referred By: REFERRED SELF Confirmed By:Jose Clark
--- NOTE | 2020-09-27 16:07 | Communication Note ---
Date of Service: September 27, 2020 Jo is 79 years old has 13 years of Parkinson's disease and has reached a point where she has a lot of dyskinesias freezing episodes now frequent falls probably some orthostatic hypotension, and fortunately has remained relatively cognitively intact She is known to Dr. Lester Velazquez PA-C and I have seen her on several occasions and on the last visit we elected to have her assessed by our movement disorders team in [place] and she has been seen by them some of her medications have been adjusted but she is not felt to be a candidate for deep brain stimulation which is one of the reasons we sent her there She is on extended release Sinemet in the morning and then takes 1-1/2 of the regular Sinemet 3 times a day and extended release Sinemet at night Her rasagiline has been stopped Amantadine was ineffective She continues to take periodic small doses of Sinemet during the day She also takes some melatonin for elements of REM behavior disorder I have been asked to see her during this hospital stay which was precipitated by a fall with neck pain and now the development of head position change vertigo and the latter may have been present before. She continues to have frequent falls would be a candidate for rehabilitation and has at times disabling episodes of dyskinesia although she really does not complain much about these and is bothered more by the rigidity and bradykinesia which is typical of most Parkinson patients after this long of disease duration Major issues are now cervicalgia which is not localized to 1 spot is more diffuse but limits her range of motion and is associated with nothing significant on imaging either plain films or MRI, the vertigo which on exam today is induced by slight head rotation to either side and is a brief duration and meets criteria for at least benign positional vertigo to some degree. The last issue is of course the disabling dyskinesias which are not clearly related to disease duration dopamine therapy and heightened dopamine receptor sensitivity Other medical problems are as outlined below and include elevated troponin history of coronary disease shortness of breath subdural hematomas in the remote past requiring treatment, ventral hernia repair, coronary angioplasty, dyslipidemia, hypothyroidism, hypertension, chronic anxiety and of course of Parkinson's with the Parkinson complications of orthostatic hypotension REM behavior disorder the dopa dyskinesias and now the frequent falls Medications at home include Tylenol aspirin atorvastatin knee carbidopa L-dopa combinations as outlined above with extended release at the beginning the end of the day and 3 times daily 1-1/2 of the 25/100 mg tablets and as needed half tablets refreezing episodes, melatonin, cholecalciferol, Zyrtec, pantoprazole, sertraline circulate vitamin A. Her list continues to include rasagiline but she tells me this was stopped although when I reviewed the notes from our [facility] it was very hard to tell what plans they had Exam reveals blood pressure 151/76 pulse 65 respirations 18 temperature is 36 O2 sats are 99 she is alert cooperative oriented in 3 spheres but has almost continuous dyskinetic movements of her lower extremities some of her arms and some of her neck and is holding her neck because of the pain. Her voice has a slightly diminished volume there is some mild dyskinesias of the face eye movements are normal facial motor and strength is normal facial sensation is normal and I really do not see any rigidity or cogwheeling and note no typical parkinsonian tremor. Reflexes very difficult to elicit strength testing is grossly intact I will see any atrophy fasciculations and sensory examination reveals some loss of vibratory sense distally My suggestions at this point would be the following: Continue the twice daily extended release in the morning and evening, cut the 3 times a day Sinemet from one half of the 25/100 tablets to 1, continue to use as needed half tablets but sparingly, stop the rasagiline if it has been continued here in the hospital, have pain management assess her neck for possible injections to see if we can get ahead of this pain not using excessively sedating medications or muscle relaxants and have physical therapy assess her for possible vestibular therapy and Bobbi maneuver. Unfortunately this would not be limited by her neck pain and the vertigo is probably a relatively minor issue at this time Yoandy Wright MD
[2020-09-27] MEDS: ATORVASTATIN 40 MG TAB PO SCH (20:22)
[2020-09-27] MEDS: MELATONIN 3 MG TAB PO SCH (22:18)
[2020-09-27] MEDS: CARBIDOPA/LEVODOPA 50/200MG EXT REL TAB PO SCH (22:18)
[2020-09-28] MEDS: CARBIDOPA/LEVODOPA 25/100MG EXT REL TAB PO SCH (06:32)
[2020-09-28] MEDS: PANTOprazole 40 MG TAB PO SCH (06:32)
[2020-09-28] MEDS: CLOTRIMAZOLE 10 MG TROCHE BUCCAL SCH ×5 (08:32→20:18)
[2020-09-28] MEDS: HEPARIN SOD 5,000 UNIT/0.5 ML VIAL SQ SCH ×2 (08:33→21:21)
[2020-09-28] MEDS: CEROVITE ADV FORMULA TAB PO SCH (08:33)
[2020-09-28] MEDS: CETIRIZINE HCL 10 MG TABLET PO SCH (08:33)
[2020-09-28] MEDS: ASPIRIN 81 MG ECTAB PO SCH (08:33)
[2020-09-28] MEDS: CHOLECALCIFEROL 1,000 UNITS 25 MCG TAB PO SCH (08:33)
[2020-09-28] MEDS: SERTRALINE HCL 100 MG TABLET PO SCH (08:34)
[2020-09-28] MEDS: CARBIDOPA/LEVODOPA 25/100MG TAB PO SCH ×3 (11:07→17:40)
--- NOTE | 2020-09-28 15:45 | Communication Note ---
Date of Service: September 28, 2020 Jo looks significantly better today in terms of her dyskinetic movements in her neck dystonia which is virtually gone as is her neck pain. The vertigo is also better and it sounds as though she had some physical therapy yesterday and perhaps this was enough to help things. Her Parkinson's is now manifested by the pill-rolling tremor of the arms which is always been a major issue with her and are zeal to try to treat this with increasing amounts of Sinemet has been a dismal failure and resulted probably an increasing dyskinesias, orthostasis and other dopamine related side effects She is apparently going off to rehabilitation tomorrow and I would simply recommend we continue the current 25/100 extended release tablet in the morning followed by 3 of the 25/100 short acting Sinemet spread evenly throughout the day until bedtime when she takes a 50/200 CR tablet I went over this with Dr. Juarez yesterday the medications have been written and I am going to try to set her up for future appointment with Rere Velazquez or Rere Yanes who have seen her in the past that she is no longer interested in pursuing evaluation at [facility] and apparently is not felt to be a candidate for deep brain stimulation We may end up having do other form of logic manipulations in the future but for now she looks better and I would prefer her to be a little undertreated and overtreated as at this point her disease she is going to be very sensitive to even slight increases in the amount of dopamine Yoandy Wright MD
[2020-09-28] MEDS: MELATONIN 3 MG TAB PO SCH (21:20)
[2020-09-28] MEDS: ATORVASTATIN 40 MG TAB PO SCH (21:21)
[2020-09-28] MEDS: CARBIDOPA/LEVODOPA 50/200MG EXT REL TAB PO SCH (21:22)
--- NOTE | 2020-09-28 22:47 | Hospitalist Progress Note ---
Date of Service September 28, 2020 Assessment & Plan (1) Parkinson's disease: Decreased in Sinemet dose per neurology today and off Carafate. Patient is overall improved and feeling better. Rehab as a transition back home. Follow-up with neuro as outpatient. 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 Improved today. Supportive care. Continue PT and OT. (3) Neurogenic orthostatic hypotension: Likely related to Parkinson's disease. She was on midodrine previously but was taken off due to hypertension. Advised to stay hydrated and wear compression stockings when able. Continue PT training and efforts to stabilize prior to walking when changing position. (4) Ambulatory dysfunction: Rehab as a transition home. (5) Vertigo: Improved today. Contributing to her frequent falls. Requested PT to perform Bobbi maneuver, which was attempted however patient was not feeling up for it today and could not undergo this therapy. (6) Frequent falls: Autonomic dysfunction and significant tremors related to Parkinsons disease present. Also, patient with worsening vertigo for two months now contributing to her falls. (7) Elevated troponin: has h/o elevated troponin in the past, trended overnight without accelerated rise. No EKG concerns for acute ischemia (noted limb lead reversal on first EKG this morning). Cardiology consulted. No further workup at this time. CK was normal. (8) CAD (coronary artery disease): chronic, stable. Known disease with stent placement in 2012, h/o ICM with improved EF over time with medications. Cont current medical therapy. (9) Leukocytosis: resolved, doesn't appears to have been related to infection. (10) Hyperglycemia: resolved, no evidence of DMII. A1C 6.2 (11) Hypothyroid: chronic, stable, cont home dose levothyroxine (12) CKD (chronic kidney disease), stage III: at baseline. (13) Anxiety: - Cont zoloft 100 mg daily per home regimen. (14) CHI (closed head injury): Multiple recent falls at home. CT head on admission reveals no hemorrhage, mass effect, or evidence of acute territorial ischemia by CT criteria. (15) DVT prophylaxis: Heparin CODE: Conditional: no intubation/ventilation. Ok with chest compressions/IV medication. Dispo: She is medically stable for discharge to rehab when authorization and bed available. Suzanne Juarez DO [facility] Hospitalist Admission and Anticipated Discharge Date Admission Date: September 27, 2020 Subjective 79 yo F with recurrent falls and multiple issues related to advanced Parkinson's disease. She is improved today overall. Vertigo has lessened. PT attempted Bobbi today but wasn't feeling up for it. She was up in the chair and is able to demonstrate increased range of motion of her neck with decreased pain. She is tolerating p.o. Her dyskinesias have decreased since adjusting Sinemet dosage. I discussed the assessment and plan with her daughter who was also at bedside. I advised the patient and her daughter about Carafate and other methods of controlling acid reflux as needed. Review of Systems Review of Systems: All systems reviewed & are unremarkable except as noted in Subjective Physical Exam Physical Exam: CONSTITUTIONAL: WNWD, vitals as above, generally well- appearing, EYES: normal conjunctivae, no scleral icterus ENT: external ear and nose normal, oropharynx clear, no TM abnormality NECK: trachea midline, no lymphadenopathy, strap muscles more relaxed today but still taught, ropey, tender to palpation. Restricted ROM of cervical spine but improved since yesterday. RESPIRATORY: clear to auscultation bilaterally, no crackles, rales or wheezes, normal respiratory effort CARDIOVASCULAR: regular rate and rhythm, S1 and 2 heard without murmurs, gallops or rubs, no JVD, no peripheral edema CHEST: inspection of chest was normal GASTROINTESTINAL: normal bowel sounds, soft, nontender, nondistended, no guarding. MUSCULOSKELETAL: strength 5/5 throughout, head is normocephalic and atraumatic SKIN: warm and dry NEUROLOGIC: generalized dyskinesias still present but improved today, CN 2-12 grossly intact, no sensory deficit, normal cognition, normal speech PSYCHIATRIC: alert cooperative and oriented Results & Data Results & Data ([facility]) Vital Signs (Past 12 Hours) Vital Signs Temp Pulse Resp BP Pulse Ox 09/28/20 11:59 36.7 C 85 18 112/52 L 91 Medications Administered Current Inpatient Medications Acetaminophen (Acetaminophen 325 Mg Tab) 650 mg PO Q4H PRN PRN Reason: Moderate Pain Stop: 10/26/20 21:20 Last Admin: 09/27/20 12:30 Dose: 650 mg Documented by: Aspirin (Aspirin 81 Mg Ectab) 81 mg PO QAM [facility] Stop: 10/27/20 08:59 Last Admin: 09/28/20 08:33 Dose: 81 mg Documented by: Atorvastatin Calcium (Atorvastatin 40 Mg Tab) 40 mg PO HS [facility] Stop: 10/26/20 21:20 Last Admin: 09/28/20 21:21 Dose: 40 mg Documented by: Carbidopa/Levodopa (Carbidopa/Levodopa 25/100mg Ext Rel Tab) 1 tab PO DAILY@0600 [facility] Stop: 10/28/20 05:59 Last Admin: 09/28/20 06:32 Dose: 1 tab Documented by: Carbidopa/Levodopa (Carbidopa/Levodopa 50/200mg Ext Rel Tab) 1 tab PO DAILY@2200 [facility] Stop: 10/27/20 21:59 Last Admin: 09/28/20 21:22 Dose: 1 tab Documented by: Carbidopa/Levodopa (Carbidopa/Levodopa 25/100mg Tab) 1 tab PO TID@1000,1400,1800 [facility] Stop: 10/28/20 09:59 Last Admin: 09/28/20 17:40 Dose: 1 tab Documented by: Cetirizine HCl (Cetirizine Hcl 10 Mg Tablet) 10 mg PO QAM [facility] Stop: 10/27/20 08:59 Last Admin: 09/28/20 08:33 Dose: 10 mg Documented by: Clotrimazole (Clotrimazole 10 Mg Teena) 10 mg BUCCAL [id number] [facility] Stop: 10/06/20 21:20 Last Admin: 09/28/20 20:18 Dose: Not Given Documented by: Heparin Sodium (Porcine) (Heparin Sod 5,000 Unit/0.5 Ml Vial) 5,000 units SQ Q12 [facility] Stop: 10/26/20 20:59 Last Admin: 09/28/20 21:21 Dose: Not Given Documented by: Melatonin (Melatonin 3 Mg Tab) 4.5 mg PO HS [facility] Stop: 10/26/20 21:20 Last Admin: 09/28/20 21:20 Dose: 4.5 mg Documented by: Miscellaneous (Rasagiline [Azilect]: Order Awaiting Action) 1 ea N/A QS [facility] Stop: 10/27/20 07:59 Last Admin: 09/27/20 07:00 Dose: Not Given Documented by: Multivitamins/Minerals (Cerovite Adv Formula Tab) 1 tab PO [facility] Stop: 10/27/20 08:59 Last Admin: 09/28/20 08:33 Dose: 1 tab Documented by: Ondansetron HCl (Ondansetron Inj 2 Mg/Ml 2 Ml Vial) 4 mg IV Q4H PRN PRN Reason: Nausea And Vomiting Stop: 10/26/20 21:20 Pantoprazole Sodium ([facility]op[facility]ole 40 Mg Tab) [facility] Stop: 10/27/20 06:29 Last Admin: 09/28/20 06:32 Dose: 40 mg Documented by: Sertraline HCl (Sertraline Hcl 100 Mg Tablet) 100 mg PO [facility] Stop: 10/27/20 08:59 Last Admin: 09/28/20 08:34 Dose: 100 mg Documented by: Vitamin D (Cholecalciferol 1,000 Units 25 Mcg Tab) 1,000 units PO [facility] Stop: 10/27/20 08:59 Last Admin: 09/28/20 08:33 Dose: 1,000 units Documented by: (1) CHI (closed head injury) Encounter type: initial encounter Qualified Code(s): S09.90XA - Unspecified injury of head, initial encounter
[2020-09-29] MEDS: PANTOprazole 40 MG TAB PO SCH (05:57)
[2020-09-29] MEDS: CARBIDOPA/LEVODOPA 25/100MG EXT REL TAB PO SCH (05:58)
[2020-09-29] MEDS: CEROVITE ADV FORMULA TAB PO SCH (08:34)
[2020-09-29] MEDS: CETIRIZINE HCL 10 MG TABLET PO SCH (08:34)
[2020-09-29] MEDS: CLOTRIMAZOLE 10 MG TROCHE BUCCAL SCH ×3 (08:34→14:52)
[2020-09-29] MEDS: CHOLECALCIFEROL 1,000 UNITS 25 MCG TAB PO SCH (08:35)
[2020-09-29] MEDS: SERTRALINE HCL 100 MG TABLET PO SCH (08:35)
[2020-09-29] MEDS: ASPIRIN 81 MG ECTAB PO SCH (08:35)
[2020-09-29] MEDS: HEPARIN SOD 5,000 UNIT/0.5 ML VIAL SQ SCH (08:36)
[2020-09-29] MEDS: CARBIDOPA/LEVODOPA 25/100MG TAB PO SCH (10:39)
[2020-09-29] MEDS ORDERED: MIDODRINE HCL 2.5 MG TAB PO SCH (13:00)
--- NOTE | 2020-09-29 13:03 | Discharge Summary ---
Date of Service September 29, 2020 Admission HPI Per Admitting Provider This is a 79 yo F with PMHx of CAD, HTN, HLD, prediabetes, hypothyroidism, Parkinson's disease, autonomic dysfunction secondary to Parkinson's disease, GERD, vitamin D deficiency, depression, CKD stage III,and history of SDH. Pt was recently admitted from 08/16-08/19 for episode of shortness of breath. Daughter Kacie is present at bedside and helps support the history. Pt reports that she has been falling nearly daily, sometimes several times per day. It is worse whenever she goes from a sitting to standing position quickly and reports that she must stand there for 5 minutes before she starts walking. She does use a walker at baseline. Her last fall was 2 days ago, and that she was well through yesterday. This morning when she woke up she had significant neck pain, which is worse whenever she looks from side to side, minimal pain whenever she looks up or looks down. The patient has home health nurses who are in her home daily for various periods of time. Her also has Parkinson's disease and requires extra help. This morning when home health nurses noticed how much pain she was having they referred her to the ER. She did not take any of her medications today due to pain and transfer to ER. The patient met with Dr. Stevens, neurology, via telemedicine on 09/18/20 for Parkinsons and repeated falls. She is no longer on lasix or midodrine. They were managing her medications for Parkinsons and he wondered if she was on too much Sinemet. Patient and daughter are concerned that she may have neurogenic orthostatic hypotension and wish to see a neurologist who will further look into this. Patient also would prefer to see a local neurologist versus travel to [place] for appointments in the future. CT of the head, C-spine pelvis and L knee were all imaged and are negative for a cute fracture. Due to timing of day the patient was unable to be placed [facility] without physical or occupational therapy evaluations. She will be admitted under observation for PT/OT consults. Troponin was mildly elevated at 0.119, but is chronically elevated and no complaints of chest pain. Admission Exam Per Admitting Provider General: awake, alert, no apparent distress, tremor with fine movements Head: Normocephalic, +Left forehead and superior orbit ecchymosis s/p fall. ENT: PERRL, EOMI, no pharyngeal exudate, mucous membranes moist Chest: Clear to auscultation but diminished slightly at bases, on room air, no adventitious breath sounds Cardiac: Regular rate and rhythm, no murmur, no JVD, normal peripheral pulses, good capillary refill Abdominal: NABS x 4 quadrants, soft, nondistended, nontender to palpation, no rebound or guarding Extremities: Normal inspection, no peripheral edema or erythema, calfs nontender to palpation Psych: Normal mood and affect Neuro: AAO x 3, strength intact bilaterally and rated 5/5 in upper extremities, 3/5 in lower extremities bilaterally, limited movement with neck rotation from right to left and most pain, limited neck flexion and extension with minimal pain, + tremor in hands with fine movements, no motor deficits, speech is clear, no peripheral sensory deficits, gait not assessed. Principal Diagnosis Parkinsons Disease Cervical region somatic dysfunction Neurogenic orthostatic hypotension Ambulatory dysfunction Vertigo Frequent falls Elevated troponin Discharge Exam CONSTITUTIONAL: WNWD, vitals as above, generally well-appearing, EYES: normal conjunctivae, no scleral icterus ENT: external ear and nose normal, oropharynx clear, no TM abnormality NECK: trachea midline, no lymphadenopathy, strap muscles more relaxed today but still taught, ropey, tender to palpation. Restricted ROM of cervical spine but improved since yesterday. RESPIRATORY: clear to auscultation bilaterally, no crackles, rales or wheezes, normal respiratory effort CARDIOVASCULAR: regular rate and rhythm, S1 and 2 heard without murmurs, gallops or rubs, no JVD, no peripheral edema CHEST: inspection of chest was normal GASTROINTESTINAL: normal bowel sounds, soft, nontender, nondistended, no guarding. MUSCULOSKELETAL: strength 5/5 throughout, head is normocephalic and atraumatic SKIN: warm and dry NEUROLOGIC: generalized dyskinesias still present but improved today, CN 2-12 grossly intact, no sensory deficit, normal cognition, normal speech PSYCHIATRIC: alert cooperative and oriented Discharge Data Allergies Allergy/AdvReac Type Severity Reaction Status Date / Time celecoxib AdvReac Intermediate GI SYMPTOMS Verified 09/26/20 14:28 hydrocodone AdvReac Unknown STOMACH Verified 09/26/20 14:28 IRRITATION Consultations 09/26/20 15:58 ED Decision to Admit Stat 09/27/20 07:39 Consult Cardiology Routine 09/27/20 11:16 Consult Neurology Routine Ordered Studies Laboratory Results WBC 7.75 K/uL (4.8-10.8) 09/27/20 06:34 RBC 4.32 M/uL (4.2-5.4) 09/27/20 06:34 Hgb 12.3 g/dL (12.0-16.0) 09/27/20 06:34 Hct 37.8 % (37-47) 09/27/20 06:34 MCV 87.5 fL (80-100) 09/27/20 06:34 MCH 28.5 pg (25-34) 09/27/20 06:34 MCHC 32.5 g/dL (32-36) 09/27/20 06:34 RDW Std Deviation 48.2 fL (36.4-46.3) H 09/27/20 06:34 RDW Coeff of Ananya 15.0 % (11.5-14.5) H 09/27/20 06:34 Plt Count 232 K/uL (130-400) 09/27/20 06:34 MPV 9.8 fL (7.4-10.4) 09/27/20 06:34 Immature Gran % (Auto) 0.3 % 09/26/20 14:51 Neut % (Auto) 83.8 % 09/26/20 14:51 Lymph % (Auto) 6.7 % 09/26/20 14:51 [place] % (Auto) 8.9 % 09/26/20 14:51 Eos % (Auto) 0.2 % 09/26/20 14:51 Baso % (Auto) 0.1 % 09/26/20 14:51 Neut # (Auto) 11.53 K/uL (1.4-6.5) H 09/26/20 14:51 Lymph # (Auto) 0.92 K/uL (1.2-3.4) L 09/26/20 14:51 [place] # (Auto) 1.22 K/uL (0.11-0.59) H 09/26/20 14:51 Eos # (Auto) 0.03 K/uL (0-0.5) 09/26/20 14:51 Baso # (Auto) 0.01 K/uL (0-0.2) 09/26/20 14:51 Immature Gran # (Auto) 0.04 K/uL (0.00-0.02) H 09/26/20 14:51 Sodium 142 mmol/L (136-145) 09/27/20 06:34 Potassium 3.9 mmol/L (3.5-5.1) 09/27/20 06:34 Chloride 107 mmol/L (98-107) 09/27/20 06:34 Carbon Dioxide 31 mmol/L (21-32) 09/27/20 06:34 Anion Gap 4.0 (3-11) 09/27/20 06:34 BUN 20 mg/dl (7-18) H 09/27/20 06:34 Creatinine 0.83 mg/dl (0.6-1.2) 09/27/20 06:34 Est Cr Clr Drug Dosing 42.1 ml/min 09/27/20 06:34 Est GFR ( Amer) 76.6 ml/min 09/27/20 06:34 Est GFR (Non-Af Amer) 66.1 ml/min 09/27/20 06:34 BUN/Creatinine Ratio 24.1 (10-20) H 09/27/20 06:34 Glucose 114 mg/dl (70-99) H 09/27/20 06:34 Estimat Average Glucose 131 mg/dl 09/27/20 06:34 Hemoglobin A1c 6.2 % (4.5-5.6) H 09/27/20 06:34 Lactate 1.6 mmol/L (0.4-2.0) 09/26/20 14:51 Calcium 8.7 mg/dl (8.5-10.1) 09/27/20 06:34 Phosphorus 2.7 mg/dl (2.5-4.9) 09/27/20 06:34 Magnesium 2.0 mg/dl (1.8-2.4) 09/27/20 06:34 Total Bilirubin 1.0 mg/dl (0.2-1) 09/27/20 06:34 AST 18 U/L (15-37) 09/27/20 06:34 ALT 7 U/L (12-78) L 09/27/20 06:34 Alkaline Phosphatase 79 U/L (45-117) 09/27/20 06:34 Total Creatine Kinase 102 U/L (26-192) 09/27/20 06:34 Troponin I 0.199 ng/ml (0-0.045) H* 09/27/20 06:34 Troponin I Cancelled 09/27/20 06:34 Total Protein 6.3 gm/dl (6.4-8.2) L 09/27/20 06:34 Albumin 3.3 gm/dl (3.4-5.0) L 09/27/20 06:34 Globulin 3.0 gm/dl (2.5-4.0) 09/27/20 06:34 Albumin/Globulin Ratio 1.1 (0.9-2) 09/27/20 06:34 Procalcitonin < 0.05 ng/ml (0-0.5) 09/26/20 17:16 TSH 0.551 uIu/ml (0.300-4.500) 09/26/20 14:51 Urine Color Yellow 09/26/20 14:25 Urine Appearance Clear (Clear) 09/26/20 14:25 Urine pH 6.0 (4.5-7.5) 09/26/20 14:25 Ur Specific [place] 1.020 (1.000-1.030) 09/26/20 14:25 Urine Protein Trace (Negative) H 09/26/20 14:25 Urine Glucose (UA) Negative (Negative) 09/26/20 14:25 Urine Ketones Trace (Negative) H 09/26/20 14:25 Urine Blood Trace-intact (Negative) H 09/26/20 14:25 Urine Nitrite Negative (Negative) 09/26/20 14:25 Urine Bilirubin Negative (Negative) 09/26/20 14:25 Urine Urobilinogen Negative (Negative) 09/26/20 14:25 Ur Leukocyte Esterase Negative (Negative) 09/26/20 14:25 Urine RBC 5-10 /hpf (0-4) H 09/26/20 14:25 Urine WBC 0-5 /hpf (0-5) 09/26/20 14:25 Ur Epithelial Cells 0-5 /lpf (0-5) 09/26/20 14:25 Urine Bacteria Negative (Negative) 09/26/20 14:25 COVID-19 Eval Order Covid19 at [facility] 09/26/20 15:41 SARS-CoV-2 (PCR) NEGATIVE (Negative) 09/26/20 15:41 Impressions Chest X-Ray 09/26/20 12:48 XR chest 1V portable CLINICAL HISTORY: weakness COMPARISON STUDY: Chest radiograph and chest CT August 16, 2020. FINDINGS: Patient is rotated. Cardiomegaly and mild dilatation of the ascending aorta are better depicted on recent chest CT. There is no evidence for pulmonary edema or pneumonia. No pneumothorax or pleural effusion is noted. Slight asymmetric interstitial thickening within the right lung is noted. IMPRESSION: 1. Cardiomegaly. Rotated study. 2. Slight asymmetric interstitial thickening within the right lung, a nonspecific finding. ACT 112: Negative or not required by law. Electronically signed by: Gabriel Irving M.D. 09/26/2020 1:[address] 09/26/20 12:48 CT SCAN OF THE BRAIN WITHOUT IV CONTRAST CLINICAL HISTORY: Fall. Head injury. COMPARISON STUDY: CT of the brain dated 07/26/2020. TECHNIQUE: Unenhanced axial CT scan of the brain is performed from the vertex to the skull base. A dose lowering technique was utilized adhering to the principles of ALARA. FINDINGS: Brain parenchyma: There are age-related involutional changes noting moderate to advanced confluent subcortical and periventricular microangiopathic change. There is no hemorrhage, mass effect, or evidence of acute territorial ischemia by CT criteria. Ruggiero-white matter differentiation is preserved. No extra-axial fluid collection is seen. Ventricles, sulci, cisterns: Prominent secondary to involutional change. Intracranial vasculature: There is atherosclerotic calcification of the cavernous carotid and vertebral arteries. Calvarium: The skeletal structures are osteopenic. No depressed calvarial fracture is identified. Sinuses and mastoids: The visualized paranasal sinuses are clear. The mastoid air cells are well pneumatized. Orbits: The bony orbits are grossly intact. There are bilateral ocular lens implants. IMPRESSION: There is no hemorrhage, mass effect, or evidence of acute territorial ischemia by CT criteria. ACT 112: Negative or not required by law. Electronically signed by: Porfirio Thomas M.D. 09/26/2020 1:[address] 09/26/20 12:50 CT SCAN OF THE CERVICAL SPINE CLINICAL HISTORY: Falls. Head injury. COMPARISON STUDY: CT of the cervical spine dated 07/26/2020. TECHNIQUE: CT scan of the cervical spine is performed from the skull base to the upper thoracic spine. Images are reviewed in the axial, sagittal, and coronal planes. IV contrast was not administered for this examination. A dose lowering technique was utilized adhering to the principles of ALARA. CT DOSE: 957.00 mGy.cm FINDINGS: Skeletal structures: The skeletal structures are osteopenic. There is no evidence of fracture or subluxation involving the cervical spine. Vertebral body height and alignment are maintained. Small anterior osteophytes are seen throughout. The odontoid process and lateral masses are intact. The atlantoaxial articulation is preserved noting productive degenerative change. The spinous processes appear intact. There is mild to moderate multilevel cervical spondylosis. Uncovertebral and facet arthropathy contribute to neural foraminal narrowing at several levels. There are minimal chronic superior endplate compression deformities of T1, T2, and T3. Intervertebral discs: There is moderate to advanced disc space narrowing at C6-C7. Only minimal disc space narrowing is seen at the remaining cervical levels. Central canal: A posterior disc osteophyte complex at C6-C7 may contribute to mild acquired compromise of the central canal. Soft tissues: The prevertebral and paraspinous soft tissues are within normal limits. There is atherosclerotic calcification of the carotid bulbs. There are numerous calcified tonsilliths. Calvarium: The visualized calvarium at the skull base appears intact. Brain parenchyma: Partially visualized brain parenchyma at the skull base is within normal limits noting age-related involutional change. Sinuses and mastoids: There is trace mucosal thickening within the sphenoid sinuses. Thickening and sclerosis of the sinus allen indicates chronicity. The mastoid air cells are well pneumatized. Lung apices: Clear as visualized. IMPRESSION: 1. There is no evidence of fracture or subluxation involving the cervical spine. 2. Osteopenia and spondylotic change as above. ACT 112: Negative or not required by law. Electronically signed by: Porfirio Thomas M.D. 09/26/2020 1:27 PM Pelvis X-Ray 09/26/20 12:50 XR pelvis 1-2V routine CLINICAL HISTORY: fall, sacral pain COMPARISON: CT of the abdomen and pelvis and pelvis radiograph July 23, 2019. FINDINGS: Sacroiliac joints and symphysis pubis are intact. There is no acute fracture within the pelvis or hips. Moderate vascular calcification is noted. There is mild osteoarthritis of both hips. IMPRESSION: No acute fracture within the pelvis or hips. ACT 112: Negative or not required by law. Electronically signed by: Gabriel Irving M.D. 09/26/2020 1:36 PM Knee X-Ray 09/26/20 14:24 LEFT KNEE 2 VIEWS CLINICAL HISTORY: Left knee injury. FINDINGS: AP and crosstable lateral views of the left knee are obtained. No prior studies are available for comparison at the time of dictation. The skeletal structures are osteopenic. No fracture is seen. There is advanced degenerative narrowing in the medial and patellofemoral compartments. Mild narrowing is seen in the lateral compartment. There are small marginal osteophytes and degenerative beaking of the tibial spine. A moderate joint effusion is noted. Soft tissue edema is seen around the knee. There is atherosclerotic calcification of the popliteal artery. IMPRESSION: 1. Soft tissue swelling and joint effusion with no fracture identified. 2. Osteopenia and degenerative change as above. Electronically signed by: Porfirio Thomas M.D. 09/26/2020 2:57 PM Cervical Spine MRI 09/26/20 15:29 MRI OF THE CERVICAL SPINE WITHOUT IV CONTRAST CLINICAL HISTORY: Fall. Neck pain. COMPARISON STUDY: CT of the cervical spine dated 09/26/2020. TECHNIQUE: MRI of the cervical spine is performed utilizing various T1 and T2- weighted sequences in the axial and sagittal planes. IV contrast was not administered for this examination. FINDINGS: Cervical spine: Vertebral body height and alignment are maintained throughout the cervical spine. There is mild hyperlordosis. The atlantodental articulation is preserved. The spinous processes appear intact. No destructive bony lesion is seen. Small anterior osteophytes are seen in the lower cervical region. There are mild chronic superior endplate compression deformities of T1, T2, and T3. Intervertebral discs: Degenerative disc desiccation and loss of height is seen throughout the cervical spine. Loss of height is moderate at C6-C7. Spinal cord: The cervical spinal cord is normal in morphology and signal intensity. C2-C3: A posterior disc osteophyte complex minimally effaces the ventral subarachnoid space. Uncovertebral and facet arthropathy contribute to mild right neural foraminal stenosis. C3-C4: A posterior disc osteophyte complex abuts the ventral cord. Uncovertebral and facet arthropathy cause moderate to severe right and mild left neural foraminal stenosis. C4-C5: A posterior disc osteophyte complex minimally effaces the ventral cord. Uncovertebral and facet arthropathy cause mild left and minimal right neural foraminal stenosis. C5-C6: A posterior disc osteophyte complex minimally effaces the ventral cord. Mild facet arthropathy is of no consequence. The neural foramina appear clear. C6-C7: A posterior disc osteophyte complex abuts the ventral cord. Uncovertebral and facet arthropathy cause mild left and minimal right neural foraminal stenosis. C7-T1: Unremarkable. Soft tissues: The prevertebral and paraspinous soft tissues are normal as visualized. Brain parenchyma: The cerebellar tonsils are normal in configuration. A chronic lacunar infarct is questioned in the christopher. IMPRESSION: 1. No acute abnormality is identified involving the cervical spine. 2. Spondylotic change as above. See discussion for detailed level by level analysis. 3. The cervical spinal cord is normal in morphology and signal intensity. Dictated: 09/26/2020 4:49 PM Transcribed: 09/26/2020 5:03 PM Madhavi [id number] [email or web address] Electronically signed by: Porfirio Thomas M.D. 09/26/2020 5:[address] 09/26/20 16:57 CT SCAN OF THE CHEST WITHOUT IV CONTRAST CLINICAL HISTORY: Falls. COMPARISON STUDY: Chest x-ray dated 09/26/2020. Chest CT scans dated 08/16/2020 and 03/22/2013. TECHNIQUE: CT scan of the thorax was performed from the thoracic inlet to the upper abdomen. Images are reviewed in the axial, sagittal, and coronal planes. IV contrast was not administered for this examination as per the referring clinician. A dose lowering technique was utilized adhering to the principles of ALARA. The examination is degraded by motion artifact, as well as by streak artifact from the arms which could not be elevated above the chest. CT DOSE: 312.31 mGycm FINDINGS: Thyroid: Imaged portions of the thyroid gland are normal in size and attenuation. Thoracic aorta: The thoracic aorta is normal in caliber and demonstrates standard 3-vessel arch anatomy. Heart: The heart is enlarged noting trace pericardial effusion. The coronary arteries are densely calcified. Lungs and pleural spaces: Evaluation of the lung parenchyma is modestly degraded by motion artifact. There is no airspace consolidation, pleural effusion, or pneumothorax. The trachea and central airways are clear. Foci of scarring/atelectasis are present throughout both lungs. Mediastinum: There is no mediastinal hematoma or lymphadenopathy. Debris is noted within the upper esophagus. Kaitlin: Not well assessed without IV contrast. Axillae: There is no axillary lymphadenopathy. Upper abdomen: The gallbladder is surgically absent. There is a 3 mm nonobstructing right renal calculus. Partially visualized upper abdominal viscera is otherwise within normal limits. Skeletal structures: The skeletal structures are osteopenic. The bony thorax appears intact. No lytic or blastic bony lesions are seen. Degenerative change and hyperkyphosis is noted in the thoracic spine. Minimal chronic compression deformities in the upper thoracic region are unchanged. Degenerative change is again seen in the shoulders, with bursal fluid on the right. IMPRESSION: 1. Streak and motion compromised examination. 2. There is no airspace consolidation, pleural effusion, or pneumothorax. 3. The bony thorax appears intact. 4. Debris is noted in the upper esophagus. Note that this may place the patient at risk for aspiration. 5. Cardiomegaly with advanced coronary artery calcification. 6. Additional findings as above. ACT 112: Negative or not required by law. Electronically signed by: Porfirio Thomas M.D. 09/26/2020 7:04 PM Hospital Course (1) Parkinson's disease: (2) Cervical (neck) region somatic dysfunction: (3) Neurogenic orthostatic hypotension: (4) Ambulatory dysfunction: (5) Vertigo: (6) Frequent falls: (7) Elevated troponin: (8) Leukocytosis: (9) CHI (closed head injury): The patient is an 79-year-old female with Parkinson's disease who presented to the ER with neck pain and inability to ambulate. She was admitted to the hospitalist service and PT and OT were consulted. She had multiple falls over the 4 days prior to arrival secondary to vertigo and lightheadedness. She denies any loss of consciousness but sustained multiple head injuries. Imaging was unrevealing for sequelae of trauma. Early in admission she was unable to move her head secondary to significant restriction in cervical muscle range of motion due to neck pain and cervical dystonia thought related to a combination of Parkinson's disease, recent falls, and severe dyskinesias with compensation to keep her head centered. Multiple imaging modalities performed on her C-spine included an MRI and CT which were negative for fracture. Multiple osteophyte complexes were seen but normal cervical spinal cord morphology and signal intensity dysplasia. A CT of the chest revealed no airspace consolidation pleural effusion or pneumothorax. Neurology was consulted and reduced her Sinemet. She had stopped rasigiline secondary to side effects at home and amantadine was ineffective previously. Carafate was stopped. The following day her dyskinesias calmed down significantly and over the next couple of days her neck discomfort and cervical range of motion improved, as well as her vertigo symptoms, without the use of muscle relaxers. An elevated troponin on admission prompted a cardiology consultation and there was no concern for ACS. No further cardiac workup was recommended in the hospital. Of note she did have neurogenic orthostatic hypotension thought secondary to Parkinson's which was inhibiting her ability to work with therapy on day of discharge. As she was transitioning to rehab, this was treated by starting a low dose midodrine twice daily. Compression stockings were also placed on her and recommended in addition to ad vice to stay hydrated. She had previously stopped the midodrine a few months back because of elevated blood pressures. However, on this day her BP was 99/57 lying, 78/46 HR 122 standing and she was symptomatic becoming too weak too stand with symptoms resolving once she sat. It was hopeful that the midodrine would help her ability to overcome this somewhat without raising her blood pressure, but this will need to be monitored. At time of discharge she was mentating at baseline and tolerating PO. She was transferred to rehab in stable condition with a resolution of her initial presenting symptoms. Total Time Total Time Spent Total Time Spent (In Minutes): 60 Total Time Includes: Examination of the Patient, Discharge Planning, Medication Reconciliation and Communication With Other Providers Discharge Plan Discharge Items Patient Disposition: Transfer [facility] Fac Reason For Visit: NECK PAIN Discharge Diagnosis: Parkinsons Disease Cervical region somatic dysfunction Neurogenic orthostatic hypotension Ambulatory dysfunction Vertigo Frequent falls Elevated troponin Condition on Discharge: Good Activity: Resume your previous activity Non-emergency contact: Primary Care Provider and Neurologist Call non-emergency contact if: you have any medication questions, your symptoms worsen and your pain is not controlled Follow-up/Referrals: Raisa Martin MD [Primary Care Provider] - Diet: Heart Healthy Addtl Attending Provider Instructions: Please take all medications as instructed in the discharge list below. Your new Sinemet regimen is: 25/100mg CR every AM, 50/200 CR every PM with three evenly spaced doses of 25/100 in between. While in the hospital this was timed at: 0600 (Sinemet CR 25/100mg) 1000, 1400, 1800 (Sinemet 25/100mg) 2200 (Sinemet CR 50/200mg) Your carafate was stopped. You experienced significant symptoms with changing position consistent with orthostatic hypotension. As you don't remember if this was helpful for you from a symptom standpoint, it would be reasonable to restart another trial given your low blood pressure in the 90s systolic this morning. Your regimen is 2.5mg twice daily. As a result your blood pressure should be monitored closely. It is recommended that you follow up with your primary care provider in one week to ensure you are still doing well after discharge and review the effects of your new medication changes with you. It was a pleasure taking care of you! Please call if you have any questions or problems. You can reach a [facility] hospitalist on duty at [facility] 24 hours a day by calling [phone]. Take care of yourself. Suzanne Juarez, DO [facility] Pending Studies at Discharge: No Stand-Alone Forms: My [facility] Skilled Items Patient informed of condition?: Yes DNR: No Discharge Level of Care: Skilled Communicable Disease: No Discharge Prognosis: Stable Lines: None Urinary Catheter: No Medications and DC Order Prescriptions: New midodrine 2.5 mg Tablet 2.5 mg PO BID Qty: 20 RF: 0 carbidopa-levodopa [Sinemet] 25-100 mg Tablet 1 tab PO TID@1000,1400,1800 Qty: 60 RF: 0 pantoprazole 40 mg Tablet,Delayed Release (Dr/Ec) 40 mg PO DAILYBB Qty: 30 RF: 0 Continued atorvastatin 40 mg Tablet 40 mg PO HS RF: 0 melatonin 5 mg Tablet 5 mg PO HS RF: 0 cetirizine [Zyrtec] 10 mg Tablet 10 mg PO QAM RF: 0 sertraline 100 mg tablet 100 mg PO QAM RF: 0 aspirin 81 mg Tablet,Delayed Release (Dr/Ec) 81 mg PO QAM RF: 0 acetaminophen [Tylenol Extra Strength] 500 mg Tablet 500 mg PO Q6H PRN (Reason: Pain) RF: 0 cholecalciferol (vitamin D3) [Vitamin D3] 25 mcg (1,000 unit) Capsule 25 mcg PO QAM RF: 0 Ocuvite with Lutein 1,000 unit-200 mg-60 unit-2 mg Tablet 1 tab PO QAM RF: 0 Changed carbidopa-levodopa 25-100 mg tablet extended release 1 tab PO DAILY@0600 Qty: 0 RF: 0 carbidopa-levodopa 50-200 mg Tablet Extended Release 1 tab PO DAILY@2200 Qty: 0 RF: 0 Discontinued carbidopa-levodopa 25-100 mg Tablet 1 tab PO QID RF: 0 rasagiline [Azilect] 1 mg tablet 1 mg PO QAM RF: 0 clotrimazole 10 mg romario 10 mg PO 5XD RF: 0 sucralfate 1 gram tablet 1 g PO QID RF: 0 pantoprazole 20 mg tablet,delayed release (DR/EC) 20 mg PO DAILYBB RF: 0 Discharge Orders: Discharge Order (Routine); Ordered 09/29/20 Ordered By: Suzanne Anguiano/Other Patient Handouts: Prediabetes, A1C Admission Data Admit Date/Time: 09/27/20 11:19 Attending Provider: Suzanne Juarez Admit Provider: Hieu Still Primary Care Provider: Raisa Martin Other Providers: Hieu Still ; Cyrus Coles ; Yoandy Wright ; Grace Matthews Other Interventions: Discharge Summary Assessment (RN) Last Done: 09/29/20 14:47
== END 2020-09-29 15:30 | DRG 57 ==
LOC: ED 11:55 → 2N 11:55 → SUATTDRO 17:30 → 2N 21:12

== ENCOUNTER 2020-12-31 19:56 | Inpatient (IN) ==
[2020-12-31] MEDS ORDERED: CARBIDOPA/LEVODOPA 25/100MG TAB ODT PO STA (20:19)
[2020-12-31 20:38] LABS: Basophils # (auto) 0.01 K/uL (0-0.2); Basophils % (auto) 0.2 %; Eosinophils # (auto) 0.08 K/uL (0-0.5); Eosinophils % (auto) 1.3 %; Hematocrit (blood only) 34.4 % (37-47); Hemoglobin 10.9 g/dL (12.0-16.0); Immature Granulocytes # (auto) 0.01 K/uL (0.00-0.02); Immature Granulocytes % (auto) 0.2 %; Lymphocytes # (auto) 2.12 K/uL (1.2-3.4); Lymphocytes % (auto) 34.8 %; Mean Corpuscular Hemoglobin 28.5 pg (25-34); Mean Corpuscular Hgb Conc 31.7 g/dL (32-36); Mean Corpuscular Volume 89.8 fL (80-100); Mean Platelet Volume 9.6 fL (7.4-10.4); Monocytes # (auto) 0.83 K/uL (0.11-0.59); Monocytes % (auto) 13.6 %; Neutrophils # (auto) 3.05 K/uL (1.4-6.5); Neutrophils % (auto) 49.9 %; Platelet Count 213 K/uL (130-400); RDW Coefficient of Variation 15.7 % (11.5-14.5); RDW Standard Deviation 51.6 fL (36.4-46.3); Red Blood Count 3.83 M/uL (4.2-5.4)
[2020-12-31 20:49] LABS: Partial Thromboplastin Ratio 0.8; Partial Thromboplastin Time 21.9 Seconds (21.0-31.0)
[2020-12-31 20:56] LABS: Alanine Aminotransferase 11 U/L (12-78); Albumin Level 3.7 gm/dl (3.4-5.0); Aspartate Aminotransferase 10 U/L (15-37); BUN Creatinine Ratio 19.6 (10-20); Blood Urea Nitrogen 20 mg/dl (7-18); Calcium 8.5 mg/dl (8.5-10.1); Carbon Dioxide 27 mmol/L (21-32); Chloride 107 mmol/L (98-107); Est GFR (African American) 57.9 ml/min; Glucose 99 mg/dl (70-99); Lipase 117 U/L (73-393); Potassium 4.2 mmol/L (3.5-5.1); Sodium 141 mmol/L (136-145)
[2020-12-31 21:01] LABS: Albumin Globulin Ratio 1.5 (0.9-2); Alkaline Phosphatase 62 U/L (45-117); Bilirubin,Total 0.5 mg/dl (0.2-1); Globulin 2.6 gm/dl (2.5-4.0); Total Protein 6.3 gm/dl (6.4-8.2); Troponin I < 0.015 ng/ml (0-0.045)
--- NOTE | 2020-12-31 22:03 | Emergency Department Note ---
Impression & Plan Chest pain, SOB (shortness of breath) ED Provider Note INFORMANT: Patient ED PROVIDER(S): Yoandy Hanson MD CHIEF COMPLAINT: Chest pain PLAN: Disposition: Admitted Condition: Good Outpatient prescription management: none Referral: None MEDICAL DECISION MAKING: Patient presented because of chest pain. Her ECG was nonischemic. Chest x-ray was unremarkable. The patient's laboratory studies revealed no significant abnormalities. Troponin was negative. The patient was given her evening dose of carbidopa levodopa. Further management will be necessary in the hospital given her cardiac history. Consultation was made with the [facility]ist service. Patient was evaluated in the ER for further management. Triage Nursing notes reviewed and agree them. Vital Signs: reviewed and remarkable for no significant abnormalities Differential diagnosis: Cardiac ischemia, aortic dissection, pulmonary embolism, pneumothorax, pneumonia, pericarditis, myocarditis, esophageal rupture, GERD, cholecystitis, pancreatitis, musculoskeletal, as well as other pathologies. Diagnostics interpreted by me: ECG: Rate: 74 Rhythm: Sinus rhythm with poor baseline data [place]: left axis deviation QRS:Normal ST segements:No elevation or depression Other:No PACs or PVCs Cardiac Monitoring:Cardiac monitoring ordered by me: The patient was placed on continuous cardiac monitoring and observed. It revealed a normal sinus rhythm at 89 beats per minute without ectopy or evidence of dysrhythmia. Imaging studies: Chest x-ray. Findings: A chest x-ray was performed and revealed no pneumothorax, effusion, infiltrate, pulmonary edema, free air under the diaphragm. Mild dilation of the aorta which appears to be similar to prior. Impression: No acute disease. HPI: The patient is a 80 year old female who presents to the Emergency Room with complaints of chest pain. This started this morning, is located anteriorly and is occasionally radiates to her back. The patient also notes the following as sociated symptoms, some shortness of breath at times. The patient has noted having on and off chest pains for quite some time. She does have a cardiac history. She notes multiple stents. The patient states that this pain today felt different. She has not had shortness of breath with it as well. She has taken no medication for relieving factors. Current pain is rated as 2/10. Pt denies LOC, headache, fevers, chills, diaphoresis, visual changes, neck pain, nausea, vomiting, abdominal pain, back pain, melena, hematochezia, urinary symptoms, numbness, weakness, lymphadenopathy, rash, or other complaints. ROS: See above HPI for pertinent positives & negatives. A total of 10 systems reviewed and were otherwise negative. PAST MEDICAL HISTORY:See Below , CAD, Parkinson's PAST SURGICAL HISTORY:See Below, FAMILY HISTORY:See Below SOCIAL HISTORY:See Below, HOME MEDICATIONS:See Below ALLERGIES:See Below VITALS:See Below PHYSICAL EXAMINATION: GENERAL: Awake, alert, well-appearing, in no distress HENT: Normocephalic, atraumatic. Oropharynx unremarkable. EYES: Normal conjunctiva. Sclera non-icteric. NECK: Inspection normal. Non-tender. Supple. No nuchal rigidity. FROM. No masses. RESPIRATORY: Clear to auscultation. No wheezes. No rales. Normal respiratory effort. CARDIAC: Normal rate. Normal rhythm. No murmurs. No rubs. Extremities warm and well perfused. Pulses equal. No JVD. GI: Soft, non-distended. No tenderness to palpation. No rebound or guarding. No masses. RECTAL: Deferred. MUSCULOSKELETAL: Atraumatic. Chest examination reveals no tenderness. The back is symmetrical on inspection without obvious abnormality. There is no CVA tenderness to palpation. No joint edema. LOWER EXTREMITIES: Calves are equal size bilaterally and non-tender. No edema. No discoloration. NEURO: Normal sensorium. No sensory or motor deficits noted. Resting tremor noted. SKIN: No rash or jaundice noted. Yoandy Hanson MD Past Med/Surg History Medical History Anxiety CAD (coronary artery disease) Status post August 2007 PCI of both the RCA and LCX with FABIOLA Status post April 2008 PCI of the mid RCA with 2 FABIOLA Status post May 2008 PCI of the proximal LAD Status post March 2013 PCI of the RCA with a FABIOLA GERD (gastroesophageal reflux disease) Hyperlipidemia Hypertension Hypothyroidism Parkinson disease Prediabetes Per records Surgical History History of ankle surgery LEFT History of appendectomy History of arthroplasty of right knee x 2 per records History of cardiac cath 08/2007, 04/2008, 2008, 2012 History of cholecystectomy Per records History of colonoscopy History of herniorrhaphy Per records History of hysterectomy History of thumb surgery Per records- right thumb Hx of angioplasty [place] Family History Mother Diabetes Brother Myocardial infarction Social History Smoking Status: Never smoker Second Hand Exposure: No; Hx Alcohol Use: No Hx Substance Use: No Preferred Language: Ukrainian Communication Ability: Effective Telecom Assistant Required: No Beliefs That Will Affect Care: None marital status: Current Living Situation: Spouse Feels Safe at Home: Yes Assistive Devices: Oxygen - at Night and Walker Allergies Allergies Allergy/AdvReac Type Severity Reaction Status Date / Time celecoxib AdvReac Intermediate GI SYMPTOMS Verified 12/31/20 20:20 hydrocodone AdvReac Unknown STOMACH Verified 12/31/20 20:20 IRRITATION Home Meds Home Medications Medication Instructions Recorded Confirmed atorvastatin 40 mg tablet 40 mg PO HS 06/25/19 12/31/20 melatonin 5 mg tablet 5 mg PO HS 01/07/20 12/31/20 cetirizine 10 mg tablet (Zyrtec) 10 mg PO QAM 08/16/20 12/31/20 sertraline 100 mg tablet 100 mg PO QAM 08/16/20 12/31/20 aspirin 81 mg tablet,delayed 81 mg PO QAM 09/26/20 12/31/20 release cholecalciferol (vitamin D3) 25 25 mcg PO QAM 09/26/20 12/31/20 mcg (1,000 unit) capsule (Vitamin D3) vit A 1,000 unit-C 200 mg-E 60 1 tab PO QAM 09/26/20 12/31/20 unit-lutein 2 mg and minerals tablet (Ocuvite with Lutein) carbidopa 25 mg-levodopa 100 mg 1 tab PO TID 12/31/20 12/31/20 tablet (Sinemet) levothyroxine 112 mcg tablet 112 mcg PO QAM 12/31/20 12/31/20 sennosides 8.6 mg-docusate sodium 2 tab PO HS 12/31/20 12/31/20 50 mg tablet (Stool Softener-Laxative) Previous Rx's Medication Instructions Recorded carbidopa ER 50 mg-levodopa 200 mg 1 tab PO DAILY@2200 #0 tab 09/29/20 tablet,extended release midodrine 2.5 mg tablet 2.5 mg PO BID #20 tab 09/29/20 pantoprazole 40 mg tablet,delayed 40 mg PO DAILYBB #30 tab 09/29/20 release Results & Data (ED) Vital Signs Vital Signs - 24 hr 12/31/20 20:06 Temperature 36.5 C Temperature Source Oral Pulse Rate 89 Pulse Rhythm Regular Pulse Strength Normal Respiratory Rate 18 Respiratory Effort / Characteristics Non-Labored Spontaneous Respiratory Depth Normal Blood Pressure 130/86 Blood Pressure Mean 100 Pulse Oximetry 98 Oxygen Delivery Method Nasal Cannula Oxygen Flow Rate 3 Sepsis Recent Fever Within 48 Hours No Sepsis New/Unexplained Change in Mental Status No Sepsis Action Taken by Nursing No Action Required Laboratory Data Result diagrams: 12/31/20 20:25 12/31/20 20:25 Lab Results 12/31/20 12/31/20 12/31/20 Range/Units 20:25 20:25 20:25 WBC 6.10 (4.8-10.8) K/uL RBC 3.83 L (4.2-5.4) M/uL Hgb 10.9 L (12.0-16.0) g/dL Hct 34.4 L (37-47) % MCV 89.8 (80-100) fL MCH 28.5 (25-34) pg MCHC 31.7 L (32-36) g/dL RDW Std Deviation 51.6 H (36.4-46.3) fL RDW Coeff of Ananya 15.7 H (11.5-14.5) % Plt Count 213 (130-400) K/uL MPV 9.6 (7.4-10.4) fL Immature Gran % (Auto) 0.2 % Neut % (Auto) 49.9 % Lymph % (Auto) 34.8 % [place] % (Auto) 13.6 % Eos % (Auto) 1.3 % Baso % (Auto) 0.2 % Neut # (Auto) 3.05 (1.4-6.5) K/uL Lymph # (Auto) 2.12 (1.2-3.4) K/uL [place] # (Auto) 0.83 H (0.11-0.59) K/uL Eos # (Auto) 0.08 (0-0.5) K/uL Baso # (Auto) 0.01 (0-0.2) K/uL Immature Gran # (Auto) 0.01 (0.00-0.02) K/uL APTT 21.9 (21.0-31.0) Seconds PTT Ratio 0.8 Sodium 141 (136-145) mmol/L Potassium 4.2 (3.5-5.1) mmol/L Chloride 107 (98-107) mmol/L Carbon Dioxide 27 (21-32) mmol/L Anion Gap 8.0 (3-11) BUN 20 H (7-18) mg/dl Creatinine 1.04 (0.6-1.2) mg/dl Est Cr Clr Drug Dosing Not Reportable Est GFR ( Amer) 57.9 ml/min Est GFR (Non-Af Amer) 50.0 ml/min BUN/Creatinine Ratio 19.6 (10-20) Glucose 99 (70-99) mg/dl Calcium 8.5 (8.5-10.1) mg/dl Total Bilirubin 0.5 (0.2-1) mg/dl AST 10 L (15-37) U/L ALT 11 L (12-78) U/L Alkaline Phosphatase 62 (45-117) U/L Troponin I < 0.015 (0-0.045) ng/ml Total Protein 6.3 L (6.4-8.2) gm/dl Albumin 3.7 (3.4-5.0) gm/dl Globulin 2.6 (2.5-4.0) gm/dl Albumin/Globulin Ratio 1.5 (0.9-2) Lipase 117 (73-393) U/L COVID-19 Eval Order 12/31/20 Range/Units 21:00 WBC (4.8-10.8) K/uL RBC (4.2-5.4) M/uL Hgb (12.0-16.0) g/dL Hct (37-47) % MCV (80-100) fL MCH (25-34) pg MCHC (32-36) g/dL RDW Std Deviation (36.4-46.3) fL RDW Coeff of Ananya (11.5-14.5) % Plt Count (130-400) K/uL MPV (7.4-10.4) fL Immature Gran % (Auto) % Neut % (Auto) % Lymph % (Auto) % [place] % (Auto) % Eos % (Auto) % Baso % (Auto) % Neut # (Auto) (1.4-6.5) K/uL Lymph # (Auto) (1.2-3.4) K/uL [place] # (Auto) (0.11-0.59) K/uL Eos # (Auto) (0-0.5) K/uL Baso # (Auto) (0-0.2) K/uL Immature Gran # (Auto) (0.00-0.02) K/uL APTT (21.0-31.0) Seconds PTT Ratio Sodium (136-145) mmol/L Potassium (3.5-5.1) mmol/L Chloride (98-107) mmol/L Carbon Dioxide (21-32) mmol/L Anion Gap (3-11) BUN (7-18) mg/dl Creatinine (0.6-1.2) mg/dl Est Cr Clr Drug Dosing Est GFR ( Amer) ml/min Est GFR (Non-Af Amer) ml/min BUN/Creatinine Ratio (10-20) Glucose (70-99) mg/dl Calcium (8.5-10.1) mg/dl Total Bilirubin (0.2-1) mg/dl AST (15-37) U/L ALT (12-78) U/L Alkaline Phosphatase (45-117) U/L Troponin I (0-0.045) ng/ml Total Protein (6.4-8.2) gm/dl Albumin (3.4-5.0) gm/dl Globulin (2.5-4.0) gm/dl Albumin/Globulin Ratio (0.9-2) Lipase (73-393) U/L COVID-19 Eval Order Covid19 at [facility] Administered Medications Discontinued Medications Carbidopa/Levodopa (Carbidopa/Levodopa 25/100mg Tab Odt) 1 tab PO NOW STA Stop: 12/31/20 20:20 Last Admin: 12/31/20 20:57 Dose: 1 tab Documented by: [id number] Discharge Plan Visit Data Chief Complaint: Chest Pain Stated Complaint: CHEST PAIN/ SHORT OF BREATH ED Provider: Yoandy Hanson Discharge Problem: Chest pain, SOB (shortness of breath) Forms Stand Alone Forms: My [facility] Prescriptions Prescriptions: No Action atorvastatin 40 mg Tablet 40 mg PO HS RF: 0 melatonin 5 mg Tablet 5 mg PO HS RF: 0 cetirizine [Zyrtec] 10 mg Tablet 10 mg PO QAM RF: 0 sertraline 100 mg tablet 100 mg PO QAM RF: 0 sennosides-docusate sodium [Stool Softener-Laxative] 8.6-50 mg tablet 2 tab PO HS RF: 0 levothyroxine 112 mcg tablet 112 mcg PO QAM RF: 0 carbidopa-levodopa [Sinemet] 25-100 mg tablet 1 tab PO TID RF: 0 aspirin 81 mg Tablet,Delayed Release (Dr/Ec) 81 mg PO QAM RF: 0 cholecalciferol (vitamin D3) [Vitamin D3] 25 mcg (1,000 unit) Capsule 25 mcg PO QAM RF: 0 Ocuvite with Lutein 1,000 unit-200 mg-60 unit-2 mg Tablet 1 tab PO QAM RF: 0 midodrine 2.5 mg Tablet 2.5 mg PO BID Qty: 20 RF: 0 pantoprazole 40 mg Tablet,Delayed Release (Dr/Ec) 40 mg PO DAILYBB Qty: 30 RF: 0 carbidopa-levodopa 50-200 mg Tablet Extended Release 1 tab PO DAILY@2200 Qty: 0 RF: 0 Referrals Referrals: Raisa Martin MD [Primary Care Provider] -
--- NOTE | 2021-01-01 02:02 | History and Physical Report ---
DATE OF ADMISSION: 12/31/2020. CHIEF COMPLAINT: Chest pain. HISTORY OF PRESENT ILLNESS: An 80-year-old female with past medical history significant for hyperlipidemia, prediabetes, hypothyroidism, history of CAD, status post stents, hypertension, varicose veins of leg, history of orthostatic hypotension, vitamin D deficiency, GERD, degenerative disk disease, Parkinson disease, macular degeneration, motor fluctuations due to the medication use in Parkinson disease, low back pain, dyskinesia, akathisia, history of panic attacks, depression, history of fall, history of subdural hemorrhage, who lives at home, presents with chest pain. The patient says at 7:00 p.m., she was sitting on the chair when she noticed chest pain in the middle of the chest, radiating to the shoulder, about 5/10 in severity, dull, aching pain. She still has some mild discomfort. Denies any sweating, no shortness of breath, no cough. Denies any headache. No blurred vision, no earache, no runny nose, no sore throat. She has shaking of the hands. She took her carbidopa, but still the shaking has not gotten better. Denies any abdominal pain. No diarrhea, no constipation, no blood in stools or black stools. She is somewhat constipated, but denies any blood in the stools or black stools. No hematuria, no burning micturition. No rash. No swelling in the legs. Currently, resting comfortably and hemodynamically stable. ALLERGIES: CELECOXIB, HYDROCODONE. PAST MEDICAL HISTORY: As mentioned above. PAST SURGICAL HISTORY: Colonoscopy, CAD status post stent, EGD, injection of the lumbar spine, two arthroscopies of the right knee, thumb surgery, umbilical hernia, appendectomy, cataract surgery, repair of incisional hernia, sacroiliac joint injection, total hysterectomy. MEDICATIONS: The patient is on aspirin 81 mg p.o. a.m., atorvastatin 40 mg p.o. at bedtime, carbidopa/levodopa 1 tablet at 10:00 p.m., carbidopa/levodopa 1 tablet p.o. t.i.d., Zyrtec 10 mg p.o. a.m., vitamin D 25 mcg p.o. a.m., levothyroxine 112 mcg p.o. a.m., melatonin 5 mg p.o. at bedtime, midodrine 2.5 mg p.o. b.i.d., Ocuvite with Lutein 1 tablet p.o. a.m., Protonix 40 mg p.o. daily, Senokot S 2 tablets at bedtime, Zoloft 100 mg p.o. a.m. FAMILY HISTORY: Significant for brother has lung cancer, diabetes, heart disorder, [place]; sister has diabetes; father has heart disorder; mother has heart disorder. SOCIAL HISTORY: , no smoking, no alcohol, no drug use. REVIEW OF SYSTEMS: As per HPI. Rest of the review of systems is negative. PHYSICAL EXAMINATION: GENERAL: The patient is old and frail, not in acute distress. VITAL SIGNS: Temperature 36.5, pulse 89, respiratory rate 18, blood pressure 130/86, oxygen 98% on 3 liters. HEENT: Pupils equal, round and reactive to light. Oral mucosa moist. NECK: No JVD, no neck masses. CARDIOVASCULAR: S1 and S2 heard. Regular rate and rhythm. No murmur, no gallop. RESPIRATORY SYSTEM: Normal AP diameter. No accessory muscle use. No wheezing, no crackles. ABDOMEN: Soft, bowel sounds present, nontender, no distention. CENTRAL NERVOUS SYSTEM: Tremors in the hands. Alert and oriented. Speech is clear. No facial droop. Moves extremities. EXTREMITIES: No edema, no erythema. LABORATORY DATA: WBC 6.1, hemoglobin 10.9, hematocrit 34.4, platelets 213, APTT 21.9, PTT 0.8. Sodium 141, potassium 4.2, chloride 107, bicarbonate 27, BUN 20, creatinine 1.04, serum glucose 99, calcium 8.5, total bilirubin 0.5, AST 10, ALT 11, alkaline phosphatase 62. Troponin I less than 0.015. Lipase 117. SARS-CoV-2 PCR negative. IMAGING DATA: Chest x-ray, no acute findings. EKG: Poor quality at the rate of 74. Nonspecific ST changes. ASSESSMENT AND PLAN: This is an 80-year-old female who presents with chest pain. 1. Chest pain: History of coronary artery disease status post stent, on aspirin, statin, . troponins negative. Follow serial enzymes. Will repeat EKG in the a.m. Echocardiogram in the a.m. Will keep her n.p.o. and consult cardiology in the a.m. for further recommendations. 2. History of Parkinson's: Continue her home carbidopa/levodopa. 3. Hypothyroidism: Continue Synthroid. 4. History of orthostatic hypotension: Continue midodrine. 5. History of gastroesophageal reflux disease: Continue Protonix. 6. Constipation: Continue home stool softeners. 7. Prediabetes: Will follow HbA1c levels. 8. History of panic attacks and depression: Continue her sertraline. 9. History of fall and subdural hemorrhage: Fall precautions. 10. Deep venous thrombosis prophylaxis: Sequential compression devices for now. DISPOSITION: Observation in med tele. PT/OT prior to discharge. Social service to help with discharge planning. Level 1 full code. Job ID: [id number] MTDD
[2021-01-01] MEDS ORDERED: NITROGLYCERIN SL 0.4 MG/TAB TAB SL PRN (03:57)
[2021-01-01] MEDS ORDERED: ONDANSETRON INJ 2 MG/ML 2 ML VIAL IV PRN (03:57)
[2021-01-01] MEDS ORDERED: POLYETHYLENE (MIRALAX) 17 GM PACK PO PRN (03:57)
[2021-01-01] MEDS: LEVOTHYROXINE SODIUM 112 MCG TABLET PO SCH (05:57)
[2021-01-01] MEDS: PANTOprazole 40 MG TAB PO SCH (05:57)
[2021-01-01 06:05] LABS: Eosinophils # (auto) 0.09 K/uL (0-0.5); Eosinophils % (auto) 1.3 %; Hematocrit (blood only) 37.6 % (37-47); Hemoglobin 11.8 g/dL (12.0-16.0); Immature Granulocytes # (auto) 0.01 K/uL (0.00-0.02); Immature Granulocytes % (auto) 0.1 %; Lymphocytes # (auto) 1.93 K/uL (1.2-3.4); Lymphocytes % (auto) 26.9 %; Mean Corpuscular Hgb Conc 31.4 g/dL (32-36); Mean Corpuscular Volume 89.3 fL (80-100); Mean Platelet Volume 9.3 fL (7.4-10.4); Monocytes # (auto) 0.74 K/uL (0.11-0.59); Monocytes % (auto) 10.3 %; Neutrophils % (auto) 61.4 %; Platelet Count 211 K/uL (130-400); RDW Coefficient of Variation 15.7 % (11.5-14.5); RDW Standard Deviation 50.9 fL (36.4-46.3); Red Blood Count 4.21 M/uL (4.2-5.4); White Blood Count 7.17 K/uL (4.8-10.8)
--- NOTE | 2021-01-01 06:41 | XRay Report ---
XR chest 1V portable CLINICAL HISTORY: Chest Pain COMPARISON STUDY: Chest radiograph and chest CT September 26, 2020. FINDINGS: Lung volumes are normal. Lungs are clear. There is no pneumothorax or pleural effusion. Car diomediastinal silhouette is stable. Mediastinal contours are normal. There is no evidence for pulmon meena edema. IMPRESSION: No acute cardiopulmonary findings. No change in appearance of the chest. ACT 112: Negative or not required by law. Electronically signed by: Gabriel Irving M.D. 01/01/2021 6:39 AM
[2021-01-01 06:54] LABS: BUN Creatinine Ratio 18.7 (10-20); Blood Urea Nitrogen 16 mg/dl (7-18); Calcium 8.8 mg/dl (8.5-10.1); Carbon Dioxide 30 mmol/L (21-32); Chloride 108 mmol/L (98-107); Est GFR (African American) 70.9 ml/min; Est GFR (Non-African American) 61.2 ml/min; Glucose 93 mg/dl (70-99); Magnesium 2.1 mg/dl (1.8-2.4); Potassium 3.7 mmol/L (3.5-5.1); Sodium 143 mmol/L (136-145)
[2021-01-01 07:00] LABS: Ferritin 58.6 ng/ml (8-388); Iron 42 mcg/dl (35-150); Total Iron Binding Capacity 259 mcg/dl (250-450); Troponin I < 0.015 ng/ml (0-0.045)
[2021-01-01] MEDS: SERTRALINE HCL 100 MG TABLET PO SCH (07:57)
[2021-01-01] MEDS: CETIRIZINE HCL 10 MG TABLET PO SCH (07:57)
[2021-01-01] MEDS: ASPIRIN 81 MG ECTAB PO SCH (07:57)
[2021-01-01] MEDS: CARBIDOPA/LEVODOPA 25/100MG TAB PO SCH ×3 (07:59→21:07)
[2021-01-01] MEDS: CHOLECALCIFEROL 1,000 UNITS 25 MCG TAB PO SCH (07:59)
[2021-01-01] MEDS: CEROVITE ADV FORMULA TAB PO SCH (07:59)
[2021-01-01] MEDS ORDERED: MIDODRINE HCL 2.5 MG TAB PO SCH (09:00)
--- NOTE | 2021-01-01 11:10 | Cardiology Consultation ---
Date of Consultation January 01, 2021 Assessment & Plan (1) Acute heart failure with reduced ejection fraction and diastolic dysfunction: (2) Chest pain: (3) CAD (coronary artery disease): (4) Neurogenic orthostatic hypotension: (5) Parkinson's disease: Complex 80-year-old female present to the emergency department with 2 episodes of chest discomfort dissimilar from prior angina. Echocardiogram revealing reduced LV systolic function, moderate mitral regurgitation, grade 3 diastolic dysfunction, and evidence of patent foramen ovale with [id number] shunting. Dyspnea and orthopnea consistent with acute decompensated heart failure. Recommend furosemide 20 mg twice daily. Evidence-based heart failure therapy limited by chronic orthostatic hypotension related to Parkinson disease. Patient would benefit from afterload reduction. Midodrine will be placed on hold currently. Plan addition of low-dose AUTUMN inhibitor and/or beta-paul pending clinical course. Repeat NT proBNP and cardiac enzymes. Monitor telemetry during hospitalization. Assess daily weight, fluid balance, electrolytes, and GFR. History of Present Illness Reason for Consultation: chest pain Requesting Physician: Dr. Pitts Attending Physician: Hieu Still MD History of Present Illness Complex 80-year-old female presents to the emergency department with chest discomfort, and shortness of breath. Patient describes a discomfort on the left side of her chest radiating to the left axilla. Discomfort to similar from prior angina. Reports an anginal equivalent of left arm pain in the past leading to multiple PCI's dating back to 2007. Notes breathlessness and shortness of breath at rest. Symptoms exacerbated by lying supine. Denies paroxysmal nocturnal dyspnea. Notes intermittent edema of her left ankle. No weight gain noted. Chronic abdominal bloating unchanged. Last episode of chest discomfort occurred last evening at approximately 7 PM. Her cardiac enzymes are undetectable. Review of bedside 2D transthoracic echocardiogram reveals moderate to severe LV systolic dysfunction with an estimated ejection fraction of 30-35%. This is a decline when compared to prior studies. There is also evidence of mild pulmonary hypertension, diastolic dysfunction, and moderate mitral regurgitation. Small patent foramen ovale appreciated by color Doppler interrogation with a small left to right interatrial shunt. Currently, patient resting comfortably. Requesting discharge if possible. Cardiac problem list as noted below. Cardiac Problem List: 1. ASCVD 2. Status postApril 2007 PCI of both the RCA and LCX with FABIOLA 3. Status postDecember 2007 PCI of the mid RCA with 2 FABIOLA 4. Status postMay 2008 PCI of the proximal LAD 5. Status postNove2012 PCI of the RCA with a FABIOLA 6. Hypertension 7. Dyslipidemia Allergies Allergy/AdvReac Type Severity Reaction Status Date / Time celecoxib AdvReac Intermediate GI SYMPTOMS Verified 12/31/20 20:20 hydrocodone AdvReac Unknown STOMACH Verified 12/31/20 20:20 IRRITATION Home Medications Medication Instructions Recorded Confirmed Type atorvastatin 40 mg tablet 40 mg PO HS 06/25/19 12/31/20 History melatonin 5 mg tablet 5 mg PO HS 01/07/20 12/31/20 History cetirizine 10 mg tablet (Zyrtec) 10 mg PO QAM 08/16/20 12/31/20 History sertraline 100 mg tablet 100 mg PO QAM 08/16/20 12/31/20 History aspirin 81 mg tablet,delayed 81 mg PO QAM 09/26/20 12/31/20 History release cholecalciferol (vitamin D3) 25 25 mcg PO QAM 09/26/20 12/31/20 History mcg (1,000 unit) capsule (Vitamin D3) vit A 1,000 unit-C 200 mg-E 60 1 tab PO QAM 09/26/20 12/31/20 History unit-lutein 2 mg and minerals tablet (Ocuvite with Lutein) carbidopa ER 50 mg-levodopa 200 mg 1 tab PO DAILY@2200 #0 tab 09/29/20 12/31/20 Rx tablet,extended release midodrine 2.5 mg tablet 2.5 mg PO BID #20 tab 09/29/20 12/31/20 Rx pantoprazole 40 mg tablet,delayed 40 mg PO DAILYBB #30 tab 09/29/20 12/31/20 Rx release carbidopa 25 mg-levodopa 100 mg 1 tab PO TID 12/31/20 12/31/20 History tablet (Sinemet) levothyroxine 112 mcg tablet 112 mcg PO QAM 12/31/20 12/31/20 History sennosides 8.6 mg-docusate sodium 2 tab PO HS 12/31/20 12/31/20 History 50 mg tablet (Stool Softener-Laxative) Patient History Medical History Anxiety CAD (coronary artery disease) Status post August 2007 PCI of both the RCA and LCX with FABIOLA Status post April 2008 PCI of the mid RCA with 2 FABIOLA Status post May 2008 PCI of the proximal LAD Status post March 2013 PCI of the RCA with a FABIOLA GERD (gastroesophageal reflux disease) Hyperlipidemia Hypertension Hypothyroidism Parkinson disease Prediabetes Per records Surgical History History of ankle surgery LEFT History of appendectomy History of arthroplasty of right knee x 2 per records History of cardiac cath 08/2007, 04/2008, 2008, 2012 History of cholecystectomy Per records History of colonoscopy History of herniorrhaphy Per records History of hysterectomy History of thumb surgery Per records- right thumb Hx of angioplasty [place] Family History Mother Diabetes Brother Myocardial infarction Social History Smoking Status: Never smoker Second Hand Exposure: No; Hx Alcohol Use: No Hx Substance Use: No Preferred Language: Spanish Communication Ability: Effective Rock Splitter Required: No Beliefs That Will Affect Care: None marital status: Current Living Situation: Spouse Other Information That Helps Us Care for You: No Feels Safe at Home: Yes Safety Concerns: Feels Safe At This Time Assistive Devices: Glasses and Walker Review of Systems Review of Systems: All systems reviewed & are unremarkable except as noted in Subjective Physical Exam Constitutional: well developed, well nourished and average body habitus; no acute distress Respiratory: normal respiratory effort; no respiratory distress, no labored breathing and no retractions Auscultation: + rales (Right base); no rhonchi and no wheezes Cardiovascular: Rate/Rhythm: regular rate and regular rhythm Heart Sounds: normal S1 and normal S2; no murmur and no cardiac rub Vessels: + JVD and radial pulses present; no carotid bruit Gastrointestinal (Abdomen): Inspection/Auscultation: abdomen normal to inspection and normal bowel sounds; abdomen not distended Percussion/Palpation: abdomen soft; abdomen nontender, no guarding and abdomen not rigid Neurologic: CN's II-XI intact bilaterally and moves all extremities; no focal motor deficits Motor/Sensory: + tremor Psychiatric: A+Ox3, euthymic affect Results & Data ([place]) Vital Signs (Past 12 Hours) Vital Signs Temp Pulse Pulse Resp BP Pulse Ox Pulse Ox 01/01/21 04:04 74 94 94 01/01/21 03:53 36.7 C 73 18 155/85 H 94 01/01/21 00:04 74 16 144/90 H 94
[2021-01-01 11:50] LABS: Troponin I 0.027 ng/ml (0-0.045)
[2021-01-01] MEDS: FUROSEMIDE 20 MG in SYRINGE 0 ML IV SCH ×2 (12:02→21:16)
[2021-01-01] MEDS: DOCUSATE SODIUM/SENNA 50/8.6MG TAB PO SCH (21:07)
[2021-01-01] MEDS: ATORVASTATIN 40 MG TAB PO SCH (21:07)
[2021-01-01] MEDS: MELATONIN 3 MG TAB PO SCH (21:07)
[2021-01-01] MEDS: ACETAMINOPHEN 325 MG TAB PO PRN (21:09)
[2021-01-01] MEDS: CARBIDOPA/LEVODOPA 50/200MG EXT REL TAB PO SCH (21:09)
[2021-01-02] MEDS: LEVOTHYROXINE SODIUM 112 MCG TABLET PO SCH (05:40)
[2021-01-02] MEDS: PANTOprazole 40 MG TAB PO SCH (05:40)
[2021-01-02] MEDS: ASPIRIN 81 MG ECTAB PO SCH (08:25)
[2021-01-02 08:27] LABS: Hematocrit (blood only) 41.8 % (37-47); Hemoglobin 13.6 g/dL (12.0-16.0); Mean Corpuscular Hgb Conc 32.5 g/dL (32-36); Mean Corpuscular Volume 89.1 fL (80-100); Mean Platelet Volume 9.6 fL (7.4-10.4); Platelet Count 234 K/uL (130-400); RDW Coefficient of Variation 15.7 % (11.5-14.5); Red Blood Count 4.69 M/uL (4.2-5.4); White Blood Count 7.16 K/uL (4.8-10.8)
[2021-01-02] MEDS: CETIRIZINE HCL 10 MG TABLET PO SCH (08:29)
[2021-01-02] MEDS: SERTRALINE HCL 100 MG TABLET PO SCH (08:29)
[2021-01-02] MEDS: CEROVITE ADV FORMULA TAB PO SCH (08:29)
[2021-01-02] MEDS: CARBIDOPA/LEVODOPA 25/100MG TAB PO SCH ×3 (08:29→20:12)
[2021-01-02] MEDS: CHOLECALCIFEROL 1,000 UNITS 25 MCG TAB PO SCH (08:31)
[2021-01-02] MEDS: FUROSEMIDE 20 MG in SYRINGE 0 ML IV SCH ×2 (08:34→20:13)
[2021-01-02 08:56] LABS: BUN Creatinine Ratio 21.3 (10-20); Calcium 9.4 mg/dl (8.5-10.1); Creatinine Clr Calc Pharmacy 33.2 ml/min; Est GFR (African American) 56.6 ml/min; Est GFR (Non-African American) 48.9 ml/min; Magnesium 2.1 mg/dl (1.8-2.4)
[2021-01-02 08:57] LABS: Phosphorus 4.4 mg/dl (2.5-4.9)
--- NOTE | 2021-01-02 10:01 | Cardiology Progress Note ---
Date of Service January 02, 2021 Assessment & Plan (1) Acute heart failure with reduced ejection fraction and diastolic dysf unction: (2) CAD (coronary artery disease): (3) Neurogenic orthostatic hypotension: (4) Parkinson's disease: Plan: Fluid balance improved with IV diuretic therapy. Renal function remains stable. Recommend continuing IV furosemide 40 mg twice daily. Monitor daily weight, fluid balance, and GFR. Midodrine placed on hold 01/01/2021. Afterload reduction recommended, however, patient with a longstanding history of orthostatic hypotension related to Parkinson's disease. Blood pressure remains stable without evidence of hypotension since admission. Continue to monitor off midodrine. Consider addition of low-dose AUTUMN inhibitor or beta paul pending clinical course. Chest discomfort on admission has resolved. Cardiac enzymes are not significantly elevated, although, carries history of chronically elevated troponin. Recommend continue conservative medical management. No indication for IV heparin currently. . Admission and Anticipated Discharge Date Admission Date: January 01, 2021 Subjective Patient seen and examined at the bedside. Requesting discharge. Denies recurrent chest discomfort overnight. Shortness of breath subjectively improved. Fluid balance negative approximately 775 cc. Electrolytes and renal function stable. No orthopnea or PND. Continues to report issues with "mucus in my throat". Coughing in the a.m. No fever or chills. No palpitations, lower extremity edema, or weight gain. Telemetry reveals sinus rhythm with heart rate ranging from 60-70 bpm. No dysrhythmias recorded. Review of Systems Review of Systems: All systems reviewed & are unremarkable except as noted in Subjective Physical Exam Constitutional: well developed, well nourished and average body habitus; no acute distress Respiratory: normal respiratory effort; no respiratory distress, no labored breathing and no retractions Auscultation: + rales (Right base); no rhonchi and no wheezes Cardiovascular: Rate/Rhythm: regular rate and regular rhythm Heart Sounds: normal S1 and normal S2; no murmur and no cardiac rub Vessels: + JVD and radial pulses present; no carotid bruit Gastrointestinal (Abdomen): Inspection/Auscultation: abdomen normal to inspection and normal bowel sounds; abdomen not distended Percu ssion/Palpation: abdomen soft; abdomen nontender, no guarding and abdomen not rigid Neurologic: CN's II-XI intact bilaterally and moves all extremities; no focal motor deficits Motor/Sensory: + tremor Psychiatric: A+Ox3, euthymic affect Results & Data ([facility]) Vital Signs (Past 12 Hours) Vital Signs Temp Pulse Pulse Resp BP Pulse Ox 01/02/21 08:00 36.6 C 66 18 142/63 H 96 01/02/21 07:46 62 01/02/21 03:00 36.8 C 65 20 133/85 98 01/02/21 00:00 37.0 C 63 16 145/86 H 96 01/01/21 23:03 70
[2021-01-02] MEDS: ACETAMINOPHEN 325 MG TAB PO PRN ×2 (15:52→20:14)
[2021-01-02] MEDS: DOCUSATE SODIUM/SENNA 50/8.6MG TAB PO SCH (20:11)
[2021-01-02] MEDS: MELATONIN 3 MG TAB PO SCH (20:12)
[2021-01-02] MEDS: ATORVASTATIN 40 MG TAB PO SCH (20:14)
[2021-01-02] MEDS: CARBIDOPA/LEVODOPA 50/200MG EXT REL TAB PO SCH (21:31)
[2021-01-03] MEDS: PANTOprazole 40 MG TAB PO SCH (05:18)
[2021-01-03] MEDS: LEVOTHYROXINE SODIUM 112 MCG TABLET PO SCH (05:19)
[2021-01-03 06:53] LABS: BUN Creatinine Ratio 22.4 (10-20); Calcium 8.8 mg/dl (8.5-10.1); Creatinine Clr Calc Pharmacy 27.9 ml/min; Est GFR (African American) 45.9 ml/min; Est GFR (Non-African American) 39.6 ml/min; Phosphorus 4.8 mg/dl (2.5-4.9); Potassium 3.5 mmol/L (3.5-5.1)
[2021-01-03] MEDS: ASPIRIN 81 MG ECTAB PO SCH (08:10)
[2021-01-03] MEDS: SERTRALINE HCL 100 MG TABLET PO SCH (08:10)
[2021-01-03] MEDS: CARBIDOPA/LEVODOPA 25/100MG TAB PO SCH ×3 (08:10→17:20)
[2021-01-03] MEDS: FUROSEMIDE 20 MG in SYRINGE 0 ML IV SCH (08:10)
[2021-01-03] MEDS: CEROVITE ADV FORMULA TAB PO SCH (08:10)
[2021-01-03] MEDS: CHOLECALCIFEROL 1,000 UNITS 25 MCG TAB PO SCH (08:11)
[2021-01-03] MEDS: CETIRIZINE HCL 10 MG TABLET PO SCH (08:11)
--- NOTE | 2021-01-03 09:02 | Electrocardiogram Report ---
Test Reason : Blood Pressure : / mmHG Vent. Rate : 063 BPM Atrial Rate : 063 BPM P-R Int : 206 ms QRS Dur : 092 ms QT Int : 440 ms P-R-T Axes : 006 -35 207 degrees QTc Int : 450 ms Normal sinus rhythm with sinus arrhythmia Left axis deviation Left ventricular hypertrophy with repolarization abnormality Abnormal ECG When compared with ECG of 01-JAN-2021 05:31, (unconfirmed) T wave inversion now evident in Anterolateral leads Confirmed by Ezio Catalan ([id number]) on 01/03/2021 9:02:35 AM Referred By: REFERRED SELF Confirmed By:Ezio Catalan
--- NOTE | 2021-01-03 09:37 | Electrocardiogram Report ---
Test Reason : Blood Pressure : / mmHG Vent. Rate : 078 BPM Atrial Rate : 078 BPM P-R Int : 194 ms QRS Dur : 094 ms QT Int : 402 ms P-R-T Axes : 036 -28 187 degrees QTc Int : 458 ms Poor data quality, interpretation may be adversely affected Normal sinus rhythm with sinus arrhythmia Minimal voltage criteria for LVH, may be normal variant T wave abnormality, consider lateral ischemia Abnormal ECG When compared with ECG of 02-JAN-2021 05:37, T wave inversion less evident in Anterior leads Confirmed by Ezio Catalan ([id number]) on 01/03/2021 9:37:22 AM Referred By: REFERRED SELF Confirmed By:Ezio Catalan
--- NOTE | 2021-01-03 10:01 | Cardiology Progress Note ---
Date of Service January 03, 2021 Assessment & Plan (1) Acute heart failure with reduced ejection fraction and diastolic dysf unction: (2) CAD (coronary artery disease): (3) Neurogenic orthostatic hypotension: (4) Parkinson's disease: Plan: A.m. labs demonstrating elevated BUN and creatinine. Respiratory status improved with IV diuretic therapy. Recommend holding IV Lasix today. Repeat BMP in a.m. Recommend continuing IV furosemide 40 mg twice daily. Monitor daily weight, fluid balance. Midodrine placed on hold 01/01/2021. Cautiously add low-dose metoprolol, 12.5 mg every 12 hours. Chest discomfort on admission has resolved. Cardiac enzymes are not significantly elevated, although, carries history of chronically elevated troponin. Recommend continue conservative medical management. No indication for IV heparin. Admission and Anticipated Discharge Date Admission Date: January 01, 2021 Subjective Patient seen and examined at the bedside. Fluid balance -625 cc over the past 24 hours. Subjectively, shortness of breath improved. No recurrent chest discomfort since admission. BUN and creatinine trending upward. Patient denies orthopnea, PND, or lower extremity edema. Tolerating diet and medications. Requesting discharge. Review of Systems Review of Systems: All systems reviewed & are unremarkable except as noted in Subjective Physical Exam Constitutional: well developed, well nourished and average body habitus; no acute distress Respiratory: normal respiratory effort; no respiratory distress, no labored breathing and no retractions Auscultation: no rales, no rhonchi and no wheezes Cardiovascular: Rate/Rhythm: regular rate and regular rhythm Heart Sounds: normal S1 and normal S2; no murmur and no cardiac rub Vessels: radial pulses present; no JVD and no carotid bruit Gastrointestinal (Abdomen): Inspection/Auscultation: abdomen normal to inspection and normal bowel sounds; abdomen not distended Percussion/Palpati on: abdomen soft; abdomen nontender, no guarding and abdomen not rigid Neurologic: CN's II-XI intact bilaterally and moves all extremities; no focal motor deficits Motor/Sensory: + tremor Psychiatric: A+Ox3, euthymic affect Results & Data ([facility]) Vital Signs (Past 12 Hours) Vital Signs Temp Pulse Pulse Resp BP BP Pulse Ox 01/03/21 08:38 36.6 C 76 21 123/71 92 01/03/21 03:00 36.4 C L 65 20 132/84 94 01/02/21 23:46 68 01/02/21 23:19 37.0 C 65 18 150/61 H 93 01/02/21 23:11 Pulse Ox 01/03/21 08:38 01/03/21 03:00 01/02/21 23:46 01/02/21 23:19 01/02/21 23:11 93
--- NOTE | 2021-01-03 10:16 | Electrocardiogram Report ---
Test Reason : Blood Pressure : / mmHG Vent. Rate : 070 BPM Atrial Rate : 070 BPM P-R Int : 184 ms QRS Dur : 086 ms QT Int : 412 ms P-R-T Axes : 093 -33 046 degrees QTc Int : 444 ms Poor data quality, interpretation may be adversely affected Normal sinus rhythm with sinus arrhythmia Left axis deviation Pulmonary disease pattern Abnormal ECG When compared with ECG of 27-SEP-2020 08:25, No significant change Confirmed by Ezio Catalan ([id number]) on 01/03/2021 10:15:31 AM Referred By: REFERRED SELF Confirmed By:Ezio Catalan
[2021-01-03] MEDS: METOPROLOL TARTRATE 25 MG TAB PO SCH ×2 (11:07→21:11)
[2021-01-03] MEDS: ACETAMINOPHEN 325 MG TAB PO PRN ×2 (12:58→21:12)
[2021-01-03] MEDS ORDERED: COUGH DROP (SUGAR FREE) LOZ 24 LOZ/1 BOX BUCCAL PRN (14:13)
[2021-01-03] MEDS ORDERED: guaiFENesin SUGAR FREE 100 MG/5 ML UDC PO PRN (14:13)
--- NOTE | 2021-01-03 15:39 | Electrocardiogram Report ---
Test Reason : Blood Pressure : / mmHG Vent. Rate : 074 BPM Atrial Rate : 074 BPM P-R Int : 186 ms QRS Dur : 090 ms QT Int : 426 ms P-R-T Axes : 084 -44 025 degrees QTc Int : 472 ms Poor data quality, interpretation may be adversely affected Normal sinus rhythm with sinus arrhythmia Left axis deviation Nonspecific T wave abnormality Prolonged QT Abnormal ECG When compared with ECG of 31-DEC-2020 20:13, (unconfirmed) No significant change Confirmed by Ezio Catalan ([id number]) on 01/03/2021 3:39:29 PM Referred By: REFERRED SELF Confirmed By:Ezio Catalan
--- NOTE | 2021-01-03 18:35 | Hospitalist Progress Note ---
Date of Service January 03, 2021 Assessment & Plan (1) Chest pain: Plan: Present on admission with chest pain Troponin x3 negative Cardiology on board recommended conservative management Continue aspirin, statin and metoprolol Currently denies any chest pain Continue monitor closely Acute heart failure with reduced ejection fraction and diastolic dysfunction Chest x-ray showed no evidence of pulmonary edema Elevated proBNP 4898 Started on IV Lasix 40 mg twice daily and transition to oral today Creatinine slightly bumped to 1.29 Consider addition of low-dose AUTUMN inhibition in outpatient setting. Continue monitor BMP while on Lasix Clinically improved significantly History of Parkinson's: +resting tremor on exam Continue her home carbidopa/levodopa. Hypothyroidism: Continue Synthroid. History of orthostatic hypotension: midodrine was discontinued History of fall and subdural hemorrhage: Stable Continue fall precautions. DVT prophylaxis: on SCD Disposition Possible discharge in a.m. Admission and Anticipated Discharge Date Admission Date: January 01, 2021 Subjective Patient was seen and examined for follow-up of shortness of breath lying in bed with no acute distress Patient said that her breathing continues to improve She said that she is coughing less denies any chest pain, palpitation, dizziness, shortness of breath. Physical Exam Physical Exam: General- No acute distress Head- atraumatic Eyes- PERRL, EOMI, ENT- oropharynx clear Neck- supple, no JVD Lungs- clear to auscultation Heart- regular rhythm; no murmur Abdomen- normal bowel sounds, soft, nontender Extremities- no calf tenderness Neuro- alert, oriented x 3; PERRL, EOMI; no facial palsy; no dysarthria, positive resting tremor Skin- warm & dry Results & Data Results & Data ([facility]) Vital Signs (Past 12 Hours) Vital Signs Temp Pulse Pulse Resp BP BP Pulse Ox 01/03/21 18:18 36.6 C 78 19 85/55 L 95 01/03/21 16:00 70 01/03/21 11:40 36.4 C L 68 18 112/68 92 01/03/21 08:38 36.6 C 76 21 123/71 92 01/03/21 08:00 65
[2021-01-03] MEDS: ATORVASTATIN 40 MG TAB PO SCH (21:10)
[2021-01-03] MEDS: DOCUSATE SODIUM/SENNA 50/8.6MG TAB PO SCH (21:10)
[2021-01-03] MEDS: MELATONIN 3 MG TAB PO SCH (21:11)
[2021-01-03] MEDS: CARBIDOPA/LEVODOPA 50/200MG EXT REL TAB PO SCH (21:12)
[2021-01-04] MEDS: LEVOTHYROXINE SODIUM 112 MCG TABLET PO SCH (05:53)
[2021-01-04] MEDS: PANTOprazole 40 MG TAB PO SCH (05:53)
[2021-01-04] MEDS: CARBIDOPA/LEVODOPA 25/100MG TAB PO SCH ×4 (05:54→16:55)
[2021-01-04] MEDS: ASPIRIN 81 MG ECTAB PO SCH (08:50)
[2021-01-04] MEDS: CEROVITE ADV FORMULA TAB PO SCH (08:50)
[2021-01-04] MEDS: SERTRALINE HCL 100 MG TABLET PO SCH (08:50)
[2021-01-04] MEDS: CETIRIZINE HCL 10 MG TABLET PO SCH (08:51)
[2021-01-04] MEDS: CHOLECALCIFEROL 1,000 UNITS 25 MCG TAB PO SCH (08:51)
[2021-01-04] MEDS: METOPROLOL TARTRATE 25 MG TAB PO SCH ×2 (08:51→20:42)
[2021-01-04 09:25] LABS: BUN Creatinine Ratio 25.9 (10-20); Calcium 8.7 mg/dl (8.5-10.1); Creatinine Clr Calc Pharmacy 27.8 ml/min; Est GFR (African American) 44.7 ml/min; Est GFR (Non-African American) 38.5 ml/min; Potassium 3.7 mmol/L (3.5-5.1)
--- NOTE | 2021-01-04 12:13 | Cardiology Progress Note ---
Date of Service January 04, 2021 Assessment & Plan (1) Acute heart failure with reduced ejection fraction and diastolic dysf unction: (2) CAD (coronary artery disease): (3) Neurogenic orthostatic hypotension: (4) Parkinson's disease: Plan: Hold intravenous Lasix. Repeat basic metabolic panel in the a.m. with consideration for oral loop diuretic therapy. Midodrine discontinued. Continue low-dose metoprolol tartrate 12.5 mg twice daily. Consider addition of low-dose AUTUMN inhibition in outpatient setting. Chest discomfort on admission has resolved. Cardiac enzymes are not significantly elevated, although, carries history of chronically elevated troponin. Recommend continue conservative medical management. PT evaluation regarding gait instability. Discharge in 24-48 hours. Admission and Anticipated Discharge Date Admission Date: January 01, 2021 Subjective Patient seen and examined the bedside. Feeling better from a cardiovascular perspective. No chest discomfort, shortness of breath, orthopnea, or PND. Tolerating low-dose metoprolol tartrate, 12.5 mg twice daily. Parkinson's medications adjusted due to rigidity and immobility reported yesterday 01/03/2021. Fluid balance -1.2 L. Lasix on hold. Serum creatinine unchanged from yesterday. Nursing staff reports gait instability related to tremor. Patient requesting discharge. Review of Systems Review of Systems: All systems reviewed & are unremarkable except as noted in Subjective Physical Exam Constitutional: well developed, well nourished and average body habitus; no acute distress Respiratory: normal respiratory effort; no respiratory distress, no labored breathing and no retractions Auscultation: no rales, no rhonchi and no wheezes Cardiovascular: Rate/Rhythm: regular rate and regular rhythm Heart Sounds: normal S1 and normal S2; no murmur and no cardiac rub Vessels: radial pulses present; no JVD and no carotid bruit Gastrointestinal (Abdomen): Inspection/Auscultation: abdomen normal to inspection and normal bowel sounds; abdomen not distended Percussion/Palpation: abdomen soft; abdomen nontender, no guarding and abdomen not rigid Neurologic: CN's II-XI intact bilaterally and moves all extremities; no focal motor deficits Motor/Sensory: + tremor Psychiatric: A+Ox3, euthymic affect Results & Data ([facility]) Vital Signs (Past 12 Hours) Vital Signs Temp Pulse Pulse Resp BP Pulse Ox 01/04/21 11:50 36.8 C 65 20 108/61 96 01/04/21 08:00 65 01/04/21 07:36 36.7 C 61 18 116/67 97 01/04/21 04:50 36.4 C L 56 L 16 101/56 L 96 01/04/21 00:41 69
--- NOTE | 2021-01-04 17:05 | Hospitalist Progress Note ---
Date of Service January 04, 2021 Assessment & Plan (1) Chest pain: Plan: Present on admission with chest pain Troponin x3 negative Cardiology on board recommended conservative management Continue aspirin, statin and metoprolol Currently denies any chest pain Continue monitor closely Acute heart failure with reduced ejection fraction and diastolic dysfunction Chest x-ray showed no evidence of pulmonary edema Elevated proBNP 4898 Started on IV Lasix 40 mg twice daily and transition to oral today Creatinine slightly bumped to 1.29 Consider addition of low-dose AUTUMN inhibition in outpatient setting. Continue monitor BMP while on Lasix Clinically improved significantly History of Parkinson's: +resting tremor on exam Continue her home carbidopa/levodopa. Hypothyroidism: Continue Synthroid. History of orthostatic hypotension: midodrine was discontinued History of fall and subdural hemorrhage: Stable Continue fall precautions. DVT prophylaxis: on SCD Disposition Possible discharge in a.m. Admission and Anticipated Discharge Date Admission Date: January 01, 2021 Subjective Patient was seen and examined for follow-up of shortness of breath lying in bed with no acute distress Patient said that she is feeling better She is very anxious to go home denies any chest pain, palpitation, dizziness, shortness of breath. Physical Exam Physical Exam: General- No acute distress Head- atraumatic Eyes- PERRL, EOMI, ENT- oropharynx clear Neck- supple, no JVD Lungs- clear to auscultation Heart- regular rhythm; no murmur Abdomen- normal bowel sounds, soft, nontender Extremities- no calf tenderness Neuro- alert, oriented x 3; PERRL, EOMI; no facial palsy; no dysarthria, +resting tremor Skin- warm & dry Results & Data Results & Data ([facility]) Vital Signs (Past 12 Hours) Vital Signs Temp Pulse Pulse Resp BP Pulse Ox 01/04/21 16:00 37.3 C 54 L 71 20 129/80 97 01/04/21 11:50 36.8 C 65 20 108/61 96 01/04/21 08:00 65 01/04/21 07:36 36.7 C 61 18 116/67 97
[2021-01-04] MEDS: MELATONIN 3 MG TAB PO SCH (20:40)
[2021-01-04] MEDS: DOCUSATE SODIUM/SENNA 50/8.6MG TAB PO SCH (20:40)
[2021-01-04] MEDS: ATORVASTATIN 40 MG TAB PO SCH (20:42)
[2021-01-04] MEDS: ACETAMINOPHEN 325 MG TAB PO PRN (20:43)
[2021-01-04] MEDS: CARBIDOPA/LEVODOPA 50/200MG EXT REL TAB PO SCH (21:11)
[2021-01-05] MEDS: LEVOTHYROXINE SODIUM 112 MCG TABLET PO SCH (06:10)
[2021-01-05] MEDS: PANTOprazole 40 MG TAB PO SCH (06:10)
[2021-01-05 07:41] LABS: BUN Creatinine Ratio 28.8 (10-20); Calcium 8.7 mg/dl (8.5-10.1); Creatinine Clr Calc Pharmacy 27.6 ml/min; Est GFR (African American) 43.8 ml/min; Est GFR (Non-African American) 37.8 ml/min; Potassium 4.2 mmol/L (3.5-5.1)
[2021-01-05] MEDS: CEROVITE ADV FORMULA TAB PO SCH (07:55)
[2021-01-05] MEDS: METOPROLOL TARTRATE 25 MG TAB PO SCH (07:55)
[2021-01-05] MEDS: CARBIDOPA/LEVODOPA 25/100MG TAB PO SCH ×2 (07:55→13:21)
[2021-01-05] MEDS: CHOLECALCIFEROL 1,000 UNITS 25 MCG TAB PO SCH (07:56)
[2021-01-05] MEDS: SERTRALINE HCL 100 MG TABLET PO SCH (07:56)
[2021-01-05] MEDS: ASPIRIN 81 MG ECTAB PO SCH (07:56)
[2021-01-05] MEDS: CETIRIZINE HCL 10 MG TABLET PO SCH (07:56)
--- NOTE | 2021-01-05 08:48 | Hospitalist Progress Note ---
Date of Service January 05, 2021 Assessment & Plan (1) Chest pain: Plan: Present on admission with chest pain Troponin x3 negative Cardiology on board recommended conservative management Continue aspirin, statin Metoprolol tartrate changed to Toprol 25mg daily Currently denies any chest pain Continue monitor closely Acute heart failure with reduced ejection fraction and diastolic dysfunction Chest x-ray showed no evidence of pulmonary edema Elevated proBNP 4898 Started on IV Lasix 40 mg twice daily and transition to oral today Creatinine slightly bumped to 1.3 Case discussed with cardiology dr. Coles that recommended to discharge on Lasix 20mg daily Consider addition of low-dose AUTUMN inhibition in outpatient setting. Check BMP on Friday or Friday Follow up with cardiology next week Ok from cardiology standpoint to discharge home today History of Parkinson's: +resting tremor on exam Continue her home carbidopa/levodopa. Hypothyroidism: Continue Synthroid. Chronic kidney disease, stage 3 History of orthostatic hypotension: midodrine was discontinued History of fall and subdural hemorrhage: Stable Continue fall precautions. DVT prophylaxis: on SCD Disposition discharge home today Admission and Anticipated Discharge Date Admission Date: January 01, 2021 Subjective Pt was seen and examined for follow up of SOB Lying in bed with no distress Pt said that she feels fine She would like to go home today Denies any chest pain, palpitation, dizziness and SOB Physical Exam Physical Exam: General- No acute distress Head- atraumatic Eyes- PERRL, EOMI, ENT- oropharynx clear Neck- supple, no JVD Lungs- clear to auscultation Heart- regular rhythm; no murmur Abdomen- normal bowel sounds, soft, nontender Extremities- no calf tenderness Neuro- alert, oriented x 3; PERRL, EOMI; no facial palsy; no dysarthria, +resting tremor Skin- warm & dry Results & Data Results & Data ([facility]) Vital Signs (Past 12 Hours) Vital Signs Temp Pulse Pulse Pulse Resp BP BP 01/05/21 07:54 36.6 C 62 16 121/73 01/05/21 03:55 36.5 C 64 18 128/70 01/05/21 00:00 68 01/04/21 23:22 36.5 C 65 16 124/63 Pulse Ox 01/05/21 07:54 95 01/05/21 03:55 95 01/05/21 00:00 01/04/21 23:22 95
--- NOTE | 2021-01-05 10:30 | Cardiology Progress Note ---
Date of Service January 05, 2021 Assessment & Plan (1) Acute heart failure with reduced ejection fraction and diastolic dysf unction: (2) CAD (coronary artery disease): (3) Neurogenic orthostatic hypotension: (4) Parkinson's disease: Plan: Transition patient to oral furosemide 20 mg daily. Repeat basic metabolic panel in the outpatient setting on Friday or Friday. Midodrine discontinued and should not be restarted at discharge. Metoprolol tartrate will be discontinued in favor of Toprol-XL 25 mg daily (evidence-based heart failure therapy). Consider addition of low-dose AUTUMN inhibitor in the outpatient setting pending review of repeat basic metabolic panel and clinical status. Close outpatient heart failure clinic follow-up in 1 week. Admission and Anticipated Discharge Date Admission Date: January 01, 2021 Subjective Patient seen and examined at the bedside. Slept well overnight. No orthopnea or PND. Telemetry reveals sinus rhythm and sinus bradycardia with heart rate ranging from 50-65 bpm. No lightheadedness, dizziness, syncope, or near syncope. Tremor improved with adjustment of Sinemet. No recurrent chest pain over the past 72 hours. Tolerating low-dose beta-paul therapy. Serum creatinine remains stable at approximately 1.3. Review of Systems Review of Systems: All systems reviewed & are unremarkable except as noted in Subjective Physical Exam Constitutional: well developed, well nourished and average body habitus; no acute distress Respiratory: normal respiratory effort; no respiratory distress, no labored breathing and no retractions Auscultation: no rales, no rhonchi and no wheezes Cardiovascular: Rate/Rhythm: regular rate and regular rhythm Heart Sounds: normal S1 and normal S2; no murmur and no cardiac rub Vessels: radial pulses present; no JVD and no carotid bruit Gastrointestinal (Abdomen): Inspection/Auscultation: abdomen normal to inspection and normal bowel sounds; abdomen not distended Perc ussion/Palpation: abdomen soft; abdomen nontender, no guarding and abdomen not rigid Neurologic: CN's II-XI intact bilaterally and moves all extremities; no focal motor deficits Motor/Sensory: + tremor Psychiatric: A+Ox3, euthymic affect Results & Data ([facility]) Vital Signs (Past 12 Hours) Vital Signs Temp Pulse Pulse Pulse Resp BP BP 01/05/21 07:54 36.6 C 62 16 121/73 01/05/21 03:55 36.5 C 64 18 128/70 01/05/21 00:00 68 01/04/21 23:22 36.5 C 65 16 124/63 Pulse Ox 01/05/21 07:54 95 01/05/21 03:55 95 01/05/21 00:00 01/04/21 23:22 95
--- NOTE | 2021-01-05 13:35 | Discharge Summary ---
Date of Service January 05, 2021 Admission HPI Per Admitting Provider CHIEF COMPLAINT: Chest pain. HISTORY OF PRESENT ILLNESS: An 80-year-old female with past medical history significant for hyperlipidemia, prediabetes, hypothyroidism, history of CAD, status post stents, hypertension, varicose veins of leg, history of orthostatic hypotension, vitamin D deficiency, GERD, degenerative disk disease, Parkinson disease, macular degeneration, motor fluctuations due to the medication use in Parkinson disease, low back pain, dyskinesia, akathisia, history of panic attacks, depression, history of fall, history of subdural hemorrhage, who lives at home, presents with chest pain. The patient says at 7:00 p.m., she was sitting on the chair when she noticed chest pain in the middle of the chest, radiating to the shoulder, about 5/10 in severity, dull, aching pain. She still has some mild discomfort. Denies any sweating, no shortness of breath, no cough. Denies any headache. No blurred vision, no earache, no runny nose, no sore throat. She has shaking of the hands. She took her carbidopa, but still the shaking has not gotten better. Denies any abdominal pain. No diarrhea, no constipation, no blood in stools or black stools. She is somewhat constipated, but denies any blood in the stools or black stools. No hematuria, no burning micturition. No rash. No swelling in the legs. Currently, resting comfortably and hemodynamically stable. Admission Exam Per Admitting Provider GENERAL: The patient is old and frail, not in acute distress. VITAL SIGNS: Temperature 36.5, pulse 89, respiratory rate 18, blood pressure 130/86, oxygen 98% on 3 liters. HEENT: Pupils equal, round and reactive to light. Oral mucosa moist. NECK: No JVD, no neck masses. CARDIOVASCULAR: S1 and S2 heard. Regular rate and rhythm. No murmur, no gallop. RESPIRATORY SYSTEM: Normal AP diameter. No accessory muscle use. No wheezing, no crackles. ABDOMEN: Soft, bowel sounds present, nontender, no distention. CENTRAL NERVOUS SYSTEM: Tremors in the hands. Alert and oriented. Speech is clear. No facial droop. Moves extremities. EXTREMITIES: No edema, no erythema. Principal Diagnosis Chest pain: Acute heart failure with reduced ejection fraction and diastolic dysfunction History of Parkinson's: Hypothyroidism: Chronic kidney disease, stage 3 Discharge Exam General- No acute distress Head- atraumatic Eyes- PERRL, EOMI, ENT- oropharynx clear Neck- supple, no JVD Lungs- clear to auscultation Heart- regular rhythm; no murmur Abdomen- normal bowel sounds, soft, nontender Extremities- no calf tenderness Neuro- alert, oriented x 3; PERRL, EOMI; no facial palsy; no dysarthria, +resting tremor Skin- warm & dry Discharge Data Allergies Allergy/AdvReac Type Severity Reaction Status Date / Time celecoxib AdvReac Intermediate GI SYMPTOMS Verified 12/31/20 20:20 hydrocodone AdvReac Unknown STOMACH Verified 12/31/20 20:20 IRRITATION Consultations 01/01/21 08:00 Consult Cardiology Routine Ordered Studies XR chest 1V portable CLINICAL HISTORY: Chest Pain COMPARISON STUDY: Chest radiograph and chest CT September 26, 2020. FINDINGS: Lung volumes are normal. Lungs are clear. There is no pneumothorax or pleural effusion. Cardiomediastinal silhouette is stable. Mediastinal contours are normal. There is no evidence for pulmonary edema. IMPRESSION: No acute cardiopulmonary findings. No change in appearance of the chest. ACT 112: Negative or not required by law. Electronically signed by: Gabriel Irving M.D. 01/01/2021 6:39 AM Dictated: 01/01/21637Transcribed: 01/01/21637 Hospital Course (1) Chest pain: Present on admission with chest pain Troponin x3 negative Cardiology on board recommended conservative management Continue aspirin, statin Metoprolol tartrate changed to Toprol 25mg daily Currently denies any chest pain Continue monitor closely Acute heart failure with reduced ejection fraction and diastolic dysfunction Chest x-ray showed no evidence of pulmonary edema Elevated proBNP 4898 Started on IV Lasix 40 mg twice daily and transition to oral today Creatinine slightly bumped to 1.3 Case discussed with cardiology dr. Coles that recommended to discharge on Lasix 20mg daily Consider addition of low-dose AUTUMN inhibition in outpatient setting. Check BMP on Friday or Friday Follow up with cardiology next week Ok from cardiology standpoint to discharge home today History of Parkinson's: +resting tremor on exam Continue her home carbidopa/levodopa. Hypothyroidism: Continue Synthroid. Chronic kidney disease, stage 3 History of orthostatic hypotension: midodrine was discontinued History of fall and subdural hemorrhage: Stable Continue fall precautions. DVT prophylaxis: on SCD Disposition discharge home today Total Time Total Time Spent Total Time Spent (In Minutes): 35 mintues Discharge Plan Discharge Items Patient Disposition: Home - Home Health Services Reason For Visit: CHEST PAIN Discharge Diagnosis: Chest pain: Acute heart failure with reduced ejection fraction and diastolic dysfunction History of Parkinson's: Hypothyroidism: Chronic kidney disease, stage 3 Activity: Resume your previous activity Non-emergency contact: Primary Care Provider and Bike Designer Call non-emergency contact if: you have any medication questions Follow-up/Referrals: Raisa Martin MD [Primary Care Provider] - (Date & Time 01/12/2021 11:20 Dutch Conti [facility] ) Diet: Heart Healthy Addtl Attending Provider Instructions: Follow up with primary care provider Dr. Conti ( Dr. Martin's colleague) on 01/12/2021 at 11:20 AM at the [facility] Follow up with cardiology next week at the [facility] ( office will call you for the appointment) Check BMP on Friday or Friday to monitor your electrolytes and renal function Continue lasix 20mg daily Midodrine discontinued New medication: Lasix 20mg daily and Metoprolol (Toprol) 25mg daily Fall precaution Seek medical attention if your symptoms reoccur CHF Discharge Instructions Call your Primary Care doctor if any of the following symptoms or problems start or get worse: Shortness of breath or difficulty breathing Wake up at night short of breath Chest pain Cough Swelling of your hands, feet, or legs More fatigued or tired with your normal activity Palpitations - sudden fast heart beats WEIGHT Weigh yourself every morning after using the bathroom. Use the same scale. Wear the same amount of clothing. Write your weight down on a chart. Call your Primary Care doctor if you gain more than 2-3 pounds in 1-2 days. MEDICATIONS Use this discharge instruction sheet for medication instructions. Take your medications at the time your doctor ordered. Do not skip a dose of your medicines. If you miss a dose of medicine, take it as soon as possible, but DO NOT DOUBLE A DOSE. Read your medicine information when you get home. Know all of the side effects of your medicine. If in doubt, ask your pharmacist Call your Primary Care doctor's office if you have any side effects. Be sure all of your doctors know what medicine and herbs you take (including cold, flu, and herbal medicine). Take the following with you to your follow-up doctor appointments: Weight Chart Medication List List of questions Do not drink excessive alcohol, beer or wine. Pending Studies at Discharge: No Stand-Alone Forms: My [facility], Smoking Cessation Medications and DC Order Prescriptions: New metoprolol succinate 25 mg Tablet Extended Release 24 Hr 25 mg PO QAM 30 Days Qty: 30 RF: 0 furosemide [Lasix] 20 mg tablet 20 mg PO DAILY Qty: 30 RF: 0 Continued atorvastatin 40 mg Tablet 40 mg PO HS RF: 0 melatonin 5 mg Tablet 5 mg PO HS RF: 0 cetirizine [Zyrtec] 10 mg Tablet 10 mg PO QAM RF: 0 sertraline 100 mg tablet 100 mg PO QAM RF: 0 sennosides-docusate sodium [Stool Softener-Laxative] 8.6-50 mg tablet 2 tab PO HS RF: 0 levothyroxine 112 mcg tablet 112 mcg PO QAM RF: 0 carbidopa-levodopa [Sinemet] 25-100 mg tablet 1 tab PO TID RF: 0 aspirin 81 mg Tablet,Delayed Release (Dr/Ec) 81 mg PO QAM RF: 0 cholecalciferol (vitamin D3) [Vitamin D3] 25 mcg (1,000 unit) Capsule 25 mcg PO QAM RF: 0 Ocuvite with Lutein 1,000 unit-200 mg-60 unit-2 mg Tablet 1 tab PO QAM RF: 0 pantoprazole 40 mg Tablet,Delayed Release (Dr/Ec) 40 mg PO DAILYBB Qty: 30 RF: 0 carbidopa-levodopa 50-200 mg Tablet Extended Release 1 tab PO DAILY@2200 Qty: 0 RF: 0 Discontinued midodrine 2.5 mg Tablet 2.5 mg PO BID Qty: 20 RF: 0 Discharge Orders: Discharge Order (Routine); Ordered 01/05/21 Ordered By: Tiffanie Hansen Admission Data Admit Date/Time: 01/01/21 19:49 Attending Provider: Tiffanie Hansen Admit Provider: Hieu Still Primary Care Provider: Raisa Martin Other Providers: Vin Saleh ; Jacoby Baldwin ; Eugene Ferro ; Cyrus Mccallum ; Jony Crystal ; Murali Garcia ; Luisa Plummer ; Rere Melendez ; Britany Miller ; Jett Ken ; Hieu Still. Other Interventions: Discharge Summary Assessment (RN) Last Done: 01/05/21 13:48
[2021-01-06] MEDS ORDERED: METOPROLOL SUCC 25MG EXT REL TAB PO SCH (09:00)
--- NOTE | 2021-01-09 13:14 | Hospitalist Progress Note ---
Date of Service January 01, 2021 Assessment & Plan (1) Chest pain: (2) Acute heart failure with reduced ejection fraction and diastolic dysfunction: Plan: This is an 80-year-old female who presents with chest pain, secondary to acute CHF exacerbation. 1. Chest pain: History of coronary artery disease status post stent, on aspirin, statin, . troponins negative. repeat EKG in the a.m. Echocardiogram ordered. Cardiology consulted for further recommendations - treating for acute exacerbation of CHF Cont. IV lasix, assess fluid status daily 2. History of Parkinson's: Continue her home carbidopa/levodopa. 3. Hypothyroidism: Continue Synthroid. 4. History of orthostatic hypotension: Hold midodrine for now. 5. History of gastroesophageal reflux disease: Continue Protonix. 6. Constipation: Continue home stool softeners. 7. Prediabetes: Will follow HbA1c levels. 8. History of panic attacks and depression: Continue her sertraline. 9. History of fall and subdural hemorrhage: Fall precautions. 10. Deep venous thrombosis prophylaxis: Sequential compression devices for now. DISPOSITION: med tele. PT/OT prior to discharge. Code: full code. Admission and Anticipated Discharge Date Admission Date: January 01, 2021 Subjective Pt seen in follow up of chest pain, acute CHF She is sitting up in bed in NAD, says she is having difficulty laying flat No fever, chills She is awake, alert and oriented and answering most questions appropriately Review of Systems Review of Systems: All systems reviewed & are unremarkable except as noted in Subjective Physical Exam Physical Exam: GENERAL: elderly frail F, not in acute distress. HEENT: NC/AT, Pupils equal, round and reactive to light. Oral mucosa moist. NECK: No JVD, no neck masses. CARDIOVASCULAR: S1 and S2 heard. Regular rate and rhythm. No murmur, no gallop. RESPIRATORY: Normal AP diameter. No accessory muscle use. No wheezing, + mild bibasilary crackles. ABDOMEN: Soft, bowel sounds present, nontender, no distention. NEURO: Tremors in the hands. Alert and oriented. Speech is clear. No facial droop. Moves extremities. EXTREMITIES: No edema, no erythema.
--- NOTE | 2021-01-09 13:27 | Hospitalist Progress Note ---
Date of Service January 02, 2021 (late entry) Assessment & Plan (1) Chest pain: (2) Acute heart failure with reduced ejection fraction and diastolic dysfunction: Plan: This is an 80-year-old female who presents with chest pain, secondary to acute CHF exacerbation. 1. Chest pain: History of coronary artery disease status post stent, on aspirin, statin, . troponins negative. repeat EKG in the a.m. Echocardiogram ordered. Cardiology consulted for further recommendations - treating for acute exacerbation of CHF proBNP elevated on admission Cont. IV lasix, assess fluid status daily, monitor BMP 2. History of Parkinson's: Continue her home carbidopa/levodopa. 3. Hypothyroidism: Continue Synthroid. 4. History of orthostatic hypotension: Hold midodrine for now. 5. History of gastroesophageal reflux disease: Continue Protonix. 6. Constipation: Continue home stool softeners. 7. Prediabetes: Will follow HbA1c levels. 8. History of panic attacks and depression: Continue her sertraline. 9. History of fall and subdural hemorrhage: Fall precautions. 10. Deep venous thrombosis prophylaxis: Sequential compression devices for now. DISPOSITION: med tele. PT/OT prior to discharge. Code: full code. Admission and Anticipated Discharge Date Admission Date: January 01, 2021 Subjective Pt seen in follow up of chest pain, acute CHF She is sitting up in bed in NAD No fever, chills, breathing seems improved and chest pain resolved She is awake, alert and oriented and answering most questions appropriately present at the bedside and updated Review of Systems Review of Systems: All systems reviewed & are unremarkable except as noted in Subjective Physical Exam Physical Exam: GENERAL: elderly frail F, not in acute distress. HEENT: NC/AT, Pupils equal, round and reactive to light. Oral mucosa moist. NECK: No JVD, no neck masses. CARDIOVASCULAR: S1 and S2 heard. Regular rate and rhythm. No murmur, no gallop. RESPIRATORY: Normal AP diameter. No accessory muscle use. No wheezing, + mild bibasilary crackles. ABDOMEN: Soft, bowel sounds present, nontender, no distention. NEURO: Tremors in the hands. Alert and oriented. Speech is clear. No facial droop. Moves extremities. EXTREMITIES: No edema, no erythema.
== END 2021-01-05 14:05 | disposition home health service (06) | DRG 291 ==
LOC: ED 19:56 → EDINP 19:56 → 2S 01-01 03:48 → SUATTDRO 01-01 19:49

== ENCOUNTER 2021-08-14 08:58 | Inpatient (IN) ==
--- NOTE | 2021-08-14 09:17 | Emergency Department Note ---
History of Present Illness General Chief complaint: Shortness of Breath/Dyspnea Stated complaint: SOB Time Seen by Provider: 08/14/21 09:01 Source: patient Mode of arrival: ambulatory Limitations: no limitations History of Present Illness Provider complaint: shortness of breath Onset (ago): week(s) Exacerbated By: + movement and + other Associated symptoms: + cough, + loss of appetite, + malaise, + nausea/vomiting and + shortness of breath; no fever/chills or no headaches Treatments prior to arrival: other This is an 80-year-old female presents emergency department complaining of shortness of breath. Patient states she is has ongoing shortness of breath over the last several weeks however was worse this morning. She states last week she did have a "stomach flu" as does her at home. She states she has chronic abdominal pain due to gastroparesis, however that was worse last week also. She states she did have nausea, decreased oral intake, and vomiting. She denies fevers or chills. Denies any prior history of tobacco abuse. She denies any history of asthma or COPD. States she does not wear home oxygen or need to use any inhalers. Patient states she did take her Parkinson's medication this morning, no other of her usual medications. Pt seen during a time of high acuity and national emergency pandemic while wearing PPE. Home Medications Medication Instructions Recorded Confirmed Type atorvastatin 40 mg tablet 40 mg PO HS 06/25/19 08/14/21 History melatonin 5 mg tablet 5 mg PO HS 01/07/20 08/14/21 History cetirizine 10 mg tablet (Zyrtec) 10 mg PO QAM 08/16/20 08/14/21 History sertraline 100 mg tablet 100 mg PO QAM 08/16/20 08/14/21 History aspirin 81 mg tablet,delayed 81 mg PO QAM 09/26/20 08/14/21 History release cholecalciferol (vitamin D3) 25 25 mcg PO QAM 09/26/20 08/14/21 History mcg (1,000 unit) capsule (Vitamin D3) vit A 300 mcg-C 200 mg-E 27 1 tab PO QAM 09/26/20 08/14/21 History mg-lutein 2 mg and minerals tablet (Ocuvite with Lutein) carbidopa 25 mg-levodopa 100 mg 1.5 tab PO QID 12/31/20 08/14/21 History tablet (Sinemet) levothyroxine 112 mcg tablet 112 mcg PO QAM 12/31/20 08/14/21 History sennosides 8.6 mg-docusate sodium 2 tab PO QAM 12/31/20 08/14/21 History 50 mg tablet (Stool Softener-Laxative) carbidopa ER 50 mg-levodopa 200 mg 1 tab PO HS 06/08/21 08/14/21 History tablet,extended release cyanocobalamin (vitamin B-12) 1,000 mcg PO QPM 06/08/21 08/14/21 History 1,000 mcg tablet (Vitamin B-12) ferrous sulfate 325 mg (65 mg 325 mg PO DAILY 06/08/21 08/14/21 History iron) tablet (iron) furosemide 20 mg tablet (Lasix) 20 mg PO QAM 06/08/21 08/14/21 History lisinopril 5 mg tablet 5 mg PO QAM 06/08/21 08/14/21 History metoprolol succinate 25 mg 25 mg PO QAM 06/08/21 08/14/21 History tablet,extended release 24 hr pantoprazole 40 mg tablet,delayed 40 mg PO QAM 06/08/21 08/14/21 History release albuterol sulfate 90 mcg/actuation 2 puff INHALATION QID 08/14/21 08/14/21 History aerosol inhaler Allergies Allergy/AdvReac Type Severity Reaction Status Date / Time celecoxib AdvReac Intermediate GI SYMPTOMS Verified 08/14/21 10:36 aspirin AdvReac Mild Gastrointestinal Verified 08/14/21 10:36 Upset with 325mg dose. hydrocodone AdvReac Unknown STOMACH Verified 08/14/21 10:36 IRRITATION Past Med/Surg History Medical History Anxiety CAD (coronary artery disease) Status post August 2007 PCI of both the RCA and LCX with FABIOLA Status post April 2008 PCI of the mid RCA with 2 FABIOLA Status post May 2008 PCI of the proximal LAD Status post March 2013 PCI of the RCA with a FABIOLA 7 stents total. Chronic back pain Chronic kidney disease stage 3 - monitors Dysphagia Esophageal spasm Gastroparesis GERD (gastroesophageal reflux disease) Hyperlipidemia Hypertension Hypothyroidism Parkinson disease Prediabetes Per records Surgical History History of ankle surgery LEFT History of appendectomy History of cardiac cath 08/2007, 04/2008, 2008, 2012 History of cholecystectomy Per records History of colonoscopy History of heart artery stent x7 total History of herniorrhaphy Per records History of hysterectomy History of thumb surgery Per records- right thumb Hx of angioplasty FOLLOWS [place] S/P left knee arthroscopy S/P right knee arthroscopy x2 Family History Mother Diabetes Brother Myocardial infarction Other No family history of adverse response to anesthesia Social History Smoking Status: Never smoker Second Hand Exposure: No; Hx Alcohol Use: No Hx Substance Use: No Preferred Language: Spanish Communication Ability: Effective Bedspread Folder Required: No Beliefs That Will Affect Care: None marital status: Current Living Situation: Spouse Other Information That Helps Us Care for You: No Feels Safe at Home: Yes Safety Concerns: Feels Safe At This Time Assistive Devices: Cane and Walker Assistive Devices Comment: transport chair Review of Systems A total of 10 systems reviewed and were otherwise negative All systems reviewed & are unremarkable except as noted in HPI & below Physical Exam Vital Signs Vital Signs - 24 hr 08/14/21 09:04 08/14/21 09:08 08/14/21 09:21 Temperature 36.8 C Temperature Source Temporal Artery Scan Pulse Rate 157 H 78 Pulse Rate from SpO2 Sensor Respiratory Rate 26 H 18 Blood Pressure 154/98 H Blood Pressure Mean 116 Pulse Oximetry 98 100 Oxygen Delivery Method Room Air Room Air Sepsis Recent Fever Within 48 Hours No Sepsis New/Unexplained Change in Mental Status No Sepsis Action Taken by Nursing No Action Required 08/14/21 10:41 08/14/21 11:17 08/14/21 11:31 Temperature Temperature Source Pulse Rate 62 62 62 Pulse Rate from SpO2 Sensor Respiratory Rate 20 18 20 Blood Pressure 143/80 H 152/83 H 169/75 H Blood Pressure Mean 101 106 106 Pulse Oximetry 100 100 99 Oxygen Delivery Method Sepsis Recent Fever Within 48 Hours Sepsis New/Unexplained Change in Mental Status Sepsis Action Taken by Nursing 08/14/21 12:31 08/14/21 13:00 08/14/21 13:56 Temperature Temperature Source Pulse Rate 69 62 61 Pulse Rate from SpO2 Sensor Respiratory Rate 20 20 20 Blood Pressure 167/92 H 167/78 H 167/81 H Blood Pressure Mean 117 107 109 Pulse Oximetry 100 99 100 Oxygen Delivery Method Sepsis Recent Fever Within 48 Hours Sepsis New/Unexplained Change in Mental Status Sepsis Action Taken by Nursing 08/14/21 14:00 08/14/21 14:30 08/14/21 15:00 Temperature Temperature Source Pulse Rate 64 61 56 L Pulse Rate from SpO2 Sensor 58 L Respiratory Rate 20 18 24 Blood Pressure 167/86 H 162/92 H 162/76 H Blood Pressure Mean 113 115 104 Pulse Oximetry 100 100 100 Oxygen Delivery Method Sepsis Recent Fever Within 48 Hours Sepsis New/Unexplained Change in Mental Status Sepsis Action Taken by Nursing 08/14/21 15:30 08/14/21 15:31 08/14/21 15:40 Temperature Temperature Source Pulse Rate 66 69 Pulse Rate from SpO2 Sensor 66 Respiratory Rate 14 19 Blood Pressure 134/95 Blood Pressure Mean 108 Pulse Oximetry 99 Oxygen Delivery Method Sepsis Recent Fever Within 48 Hours Sepsis New/Unexplained Change in Mental Status Sepsis Action Taken by Nursing 08/14/21 15:50 08/14/21 16:00 08/14/21 16:01 Temperature Temperature Source Pulse Rate 61 62 60 Pulse Rate from SpO2 Sensor Respiratory Rate 23 22 22 Blood Pressure 160/102 H Blood Pressure Mean 121 Pulse Oximetry Oxygen Delivery Method Sepsis Recent Fever Within 48 Hours Sepsis New/Unexplained Change in Mental Status Sepsis Action Taken by Nursing 08/14/21 16:10 08/14/21 16:20 08/14/21 16:30 Temperature Temperature Source Pulse Rate 62 61 66 Pulse Rate from SpO2 Sensor Respiratory Rate 19 20 16 Blood Pressure Blood Pressure Mean Pulse Oximetry Oxygen Delivery Method Sepsis Recent Fever Within 48 Hours Sepsis New/Unexplained Change in Mental Status Sepsis Action Taken by Nursing GENERAL: alert, well appearing, well nourished, no distress, non-toxic EYE EXAM: normal conjunctiva, PERRL and EOM's grossly intact OROPHARYNX: no exudate, no erythema, lips, buccal mucosa, and tongue normal and mucous membranes are moist NECK: supple, no nuchal rigidity, no adenopathy, non-tender LUNGS: Clear to auscultation. Normal chest wall mechanics, no w/r/r, no increased WOB HEART: no murmurs, S1 normal and S2 normal ABDOMEN: abdomen soft, non-tender, normo-active bowel sounds, no masses, no rebound or guarding. BACK: Back is symmetrical on inspection and there is no deformity, no midline tenderness, no CVA tenderness. SKIN: no rashes and no bruising UPPER EXTREMITIES: upper extremities are grossly normal. FROM, nml pulses b/l. LOWER EXTREMITIES: No pitting edema. FROM, nml pulses b/l. NEURO EXAM: Normal sensorium, cranial nerves II-XII grossly intact, normal speech, no gross weakness of arms, no gross weakness of legs. Gross sensation intact. Tremors noted. Course Course 1140: States she is now having worsening abdominal pain and nausea. Patient requesting her usual dose of Sinemet. 1222: Updated on additional results. Patient admits to not taking her furosemide last week when she had a "stomach bug". Administered Medications Al Hydrox/Mg Hydrox/Simethicone (Aluminum/Magnesium Susp 30 Ml Udc) 15 ml PO TID [facility] Stop: 09/14/21 13:59 Last Admin: 08/15/21 13:59 Dose: 15 ml Documented by: [id number] Albuterol (Albuterol Hfa 8 Gm Inhaler) 2 puffs INH QIDR [facility] Stop: 09/14/21 06:59 Last Admin: 08/15/21 14:53 Dose: 2 puffs Documented by: [id number] Admin: 08/15/21 10:59 Dose: 2 puffs Documented by: [id number] Admin: 08/15/21 07:48 Dose: 2 puffs Documented by: [id number] Aspirin (Aspirin 81 Mg Ectab) 81 mg PO QAM [facility] Stop: 09/14/21 08:59 Last Admin: 08/15/21 09:09 Dose: 81 mg Documented by: [id number] Atorvastatin Calcium (Atorvastatin 40 Mg Tab) 40 mg PO [facility] Stop: 09/13/21 20:59 Last Admin: 08/14/21 21:41 Dose: 40 mg Documented by: [id number] Carbidopa/Levodopa (Carbidopa/Levodopa 50/200mg Ext Rel Tab) 1 tab PO [facility] Stop: 09/13/21 20:59 Last Admin: 08/14/21 21:42 Dose: 1 tab Documented by: [id number] Carbidopa/Levodopa (Carbidopa/Levodopa 25/100mg Tab) 1.5 tab PO QID [facility] Stop: 09/13/21 20:34 Last Admin: 08/15/21 16:51 Dose: 1.5 tab Documented by: [id number] Admin: 08/15/21 12:30 Dose: 1.5 tab Documented by: [id number] Admin: 08/15/21 09:10 Dose: 1.5 tab Documented by: [id number] Admin: 08/14/21 22:12 Dose: Not Given Documented by: [id number] Admin: 08/14/21 21:41 Dose: 1.5 tab Documented by: [id number] Cetirizine HCl (Cetirizine Hcl 10 Mg Tablet) 10 mg PO QAM [facility] Stop: 09/14/21 08:59 Last Admin: 08/15/21 09:09 Dose: 10 mg Documented by: [id number] Cyanocobalamin (Cyanocobalamin (B-12) 500 Mcg Tablet) 1,000 mcg PO QPM [facility] Stop: 09/13/21 20:59 Last Admin: 08/14/21 21:42 Dose: 1,000 mcg Documented by: [id number] Ferrous Sulfate (Ferrous Sulfate 325 Mg Tab) 325 mg PO DAILY [facility] Stop: 09/14/21 08:59 Last Admin: 08/15/21 09:09 Dose: 325 mg Documented by: [id number] Levothyroxine Sodium (Levothyroxine Sodium 112 Mcg Tablet) 112 mcg PO QAM [facility] Stop: 09/14/21 08:59 Last Admin: 08/15/21 09:11 Dose: 112 mcg Documented by: [id number] Lisinopril (Lisinopril 5 Mg Tab) 5 mg PO QAM [facility] Stop: 09/14/21 08:59 Last Admin: 08/15/21 09:13 Dose: 5 mg Documented by: [id number] Melatonin (Melatonin 3 Mg Tab) 4.5 mg PO HS [facility] Stop: 09/13/21 20:59 Last Admin: 08/14/21 21:42 Dose: 4.5 mg Documented by: [id number] Metoclopramide HCl (Metoclopramide Hcl Inj 5 Mg/Ml 2 Ml Vial) 10 mg IV Q6H PRN PRN Reason: Nausea Stop: 09/14/21 11:52 Last Admin: 08/15/21 12:21 Dose: 10 mg Documented by: [id number] Multivitamins/Minerals (Cerovite Adv Formula Tab) 1 tab PO QAM [facility] Stop: 09/14/21 08:59 Last Admin: 08/15/21 09:11 Dose: 1 tab Documented by: [id number] Ondansetron HCl (Ondansetron Inj 2 Mg/Ml 2 Ml Vial) 4 mg IV Q8 [facility] Stop: 09/14/21 13:59 Last Admin: 08/15/21 13:58 Dose: 4 mg Documented by: [id number] Polyethylene Glycol (Polyethylene (Miralax) 17 Gm Pack) 17 gm PO DAILY [facility] Stop: 09/14/21 08:59 Last Admin: 08/15/21 09:13 Dose: 17 gm Documented by: [id number] Senna/Docusate Sodium (Docusate Sodium/Senna 50/8.6mg Tab) 2 tab PO QAM [facility] Stop: 09/14/21 08:59 Last Admin: 08/15/21 09:11 Dose: 2 tab Documented by: [id number] Sertraline HCl (Sertraline Hcl 100 Mg Tablet) [facility] [place]: 09/14/21 08:59 Last Admin: 08/15/21 09:11 Dose: 100 mg Documented by: [id number] Vitamin D (Cholecalciferol 1,000 Units 25 Mcg Tab) 1,000 [facility] [place]: 09/14/21 08:59 Last Admin: 08/15/21 09:09 Dose: 1,000 units Documented by: [id number] Discontinued Medications Aspirin (Aspirin 81 Mg Ectab) 81 mg PO NOW [facility] Stop: 08/14/21 15:01 Last Admin: 08/14/21 15:27 Dose: 81 mg Documented by: [id number] Carbidopa/Levodopa (Carbidopa/Levodopa 25/100mg Tab) 1 tab PO BID [facility] Stop: 09/13/21 11:44 Last Admin: 08/14/21 11:56 Dose: 1 tab Documented by: [id number] Carbidopa/Levodopa (Carbidopa/Levodopa 25/100mg Tab) 1 tab PO ONE ONE Stop: 08/14/21 15:31 Last Admin: 08/14/21 15:27 Dose: 1 tab Documented by: [id number] Furosemide (Furosemide 40 Mg/4 Ml Vial) 40 mg IV ONE ONE Stop: 08/14/21 12:07 Last Admin: 08/14/21 12:13 Dose: 40 mg Documented by: [id number] Sodium Chloride (Nss 1000ml) 1,000 mls @ 200 mls/hr IV .Q5H [facility] Stop: 09/13/21 11:59 Last Admin: 08/14/21 12:08 Dose: Not Given Documented by: [id number] Lisinopril (Lisinopril 5 Mg Tab) 5 mg PO NOW [facility] Stop: 08/14/21 15:01 Last Admin: 08/14/21 15:27 Dose: 5 mg Documented by: [id number] Metoprolol Succinate (Metoprolol Succ 25mg Ext Rel Tab) 25 mg PO NOW [facility] Stop: 08/14/21 15:01 Last Admin: 08/14/21 15:27 Dose: 25 mg Documented by: [id number] Metoprolol Succinate (Metoprolol Succ 25mg Ext Rel Tab) 25 mg PO [facility] Stop: 09/14/21 08:59 Last Admin: 08/15/21 09:11 Dose: 25 mg Documented by: [id number] Ondansetron HCl (Ondansetron Inj 2 Mg/Ml 2 Ml Vial) 4 mg IV NOW [facility] Stop: 08/14/21 11:46 Last Admin: 08/14/21 13:32 Dose: Not Given Documented by: [id number] Ondansetron HCl (Ondansetron Inj 2 Mg/Ml 2 Ml Vial) 4 mg IV Q6H PRN PRN Reason: Nausea Stop: 09/13/21 20:34 Last Admin: 08/15/21 09:16 Dose: 4 mg Documented by: [id number] Pantoprazole Sodium (Pantoprazole 40 Mg Tab) 40 mg PO [facility] Stop: 09/14/21 08:59 Last Admin: 08/15/21 09:10 Dose: 40 mg Documented by: [id number] Potassium Chloride (Potassium Chloride Crtab 20 Meq Tabcr) 40 meq PO NOW [facility] Stop: 08/14/21 14:29 Last Admin: 08/14/21 15:27 Dose: 40 meq Documented by: [id number] Medical Decision Making Differential Diagnosis Differential diagnoses includes but is not limited to pneumonia, bronchitis, COPD/Asthma exacerbation, pneumothorax, pulmonary embolism, congestive heart failure, acute coronary syndrome Medical Records Attestation: I reviewed the patient's medical records. Home Medications Current Medication List: was personally reviewed by me Laboratory Data Attestation: I reviewed the patient's lab results. Result diagrams: 08/15/21 05:25 08/15/21 05:25 Lab Results 08/14/21 08/14/21 08/14/21 Range/Units 09:35 09:35 09:35 WBC 4.85 (4.8-10.8) K/uL RBC 4.45 (4.2-5.4) M/uL Hgb 13.1 (12.0-16.0) g/dL Hct 40.0 (37-47) % MCV 89.9 (80-100) fL MCH 29.4 (25-34) pg MCHC 32.8 (32-36) g/dL RDW Std Deviation 48.9 H (36.4-46.3) fL RDW Coeff of Ananya 15.0 H (11.5-14.5) % Plt Count 200 (130-400) K/uL MPV 10.0 (7.4-10.4) fL Immature Gran % (Auto) 0.2 % Neut % (Auto) 68.9 % Lymph % (Auto) 18.8 % Parke % (Auto) 10.9 % Eos % (Auto) 1.2 % Baso % (Auto) 0.0 % Neut # (Auto) 3.34 (1.4-6.5) K/uL Lymph # (Auto) 0.91 L (1.2-3.4) K/uL Parke # (Auto) 0.53 (0.11-0.59) K/uL Eos # (Auto) 0.06 (0-0.5) K/uL Baso # (Auto) 0.00 (0-0.2) K/uL Immature Gran # (Auto) 0.01 (0.00-0.02) K/uL Sodium 139 (136-145) mmol/L Potassium 3.3 L (3.5-5.1) mmol/L Chloride 101 (98-107) mmol/L Carbon Dioxide 31 (21-32) mmol/L Anion Gap 7 (3-11) BUN 16 (6-23) mg/dl Creatinine 0.99 (0.6-1.2) mg/dl Est Cr Clr Drug Dosing 35.8 ml/min Est GFR ( Amer) 61.5 ml/min Est GFR (Non-Af Amer) 53.1 ml/min BUN/Creatinine Ratio 16.2 (10-20) Glucose 95 (70-99(Fasting)) mg/dl Calcium 9.1 (8.5-10.1) mg/dl Magnesium 1.7 (1.7-2.4) mg/dl Total Bilirubin 1.0 (0.2-1.0) mg/dl AST 11 L (13-39) U/L ALT 3 L (7-52) U/L Alkaline Phosphatase 52 (34-104) U/L Troponin I 0.08 H* (0-0.04) ng/ml B-Natriuretic Peptide 470 H (0-100) pg/ml Total Protein 6.4 (6.0-8.3) gm/dl Albumin 4.2 (3.4-5.0) gm/dl Globulin 2.2 L (2.5-4.0) gm/dl Albumin/Globulin Ratio 1.9 (0.9-2) TSH (0.300-4.500) uIu/ml SARS-CoV-2, RNA, NAAT (NEGATIVE) 08/14/21 08/14/21 Range/Units 09:35 13:57 WBC (4.8-10.8) K/uL RBC (4.2-5.4) M/uL Hgb (12.0-16.0) g/dL Hct (37-47) % MCV (80-100) fL MCH (25-34) pg MCHC (32-36) g/dL RDW Std Deviation (36.4-46.3) fL RDW Coeff of Ananya (11.5-14.5) % Plt Count (130-400) K/uL MPV (7.4-10.4) fL Immature Gran % (Auto) % Neut % (Auto) % Lymph % (Auto) % Parke % (Auto) % Eos % (Auto) % Baso % (Auto) % Neut # (Auto) (1.4-6.5) K/uL Lymph # (Auto) (1.2-3.4) K/uL Parke # (Auto) (0.11-0.59) K/uL Eos # (Auto) (0-0.5) K/uL Baso # (Auto) (0-0.2) K/uL Immature Gran # (Auto) (0.00-0.02) K/uL Sodium (136-145) mmol/L Potassium (3.5-5.1) mmol/L Chloride (98-107) mmol/L Carbon Dioxide (21-32) mmol/L Anion Gap (3-11) BUN (6-23) mg/dl Creatinine (0.6-1.2) mg/dl Est Cr Clr Drug Dosing ml/min Est GFR ( Amer) ml/min Est GFR (Non-Af Amer) ml/min BUN/Creatinine Ratio (10-20) Glucose (70-99(Fasting)) mg/dl Calcium (8.5-10.1) mg/dl Magnesium (1.7-2.4) mg/dl Total Bilirubin (0.2-1.0) mg/dl AST (13-39) U/L ALT (7-52) U/L Alkaline Phosphatase (34-104) U/L Troponin I (0-0.04) ng/ml B-Natriuretic Peptide (0-100) pg/ml Total Protein (6.0-8.3) gm/dl Albumin (3.4-5.0) gm/dl Globulin (2.5-4.0) gm/dl Albumin/Globulin Ratio (0.9-2) TSH 0.874 (0.300-4.500) uIu/ml SARS-CoV-2, RNA, NAAT NEGATIVE (NEGATIVE) Imaging Data Radiologist's Impression: Chest X-Ray 08/14/21 09:12 SINGLE VIEW CHEST CLINICAL HISTORY: Dyspnea. FINDINGS: An AP, portable, upright chest radiograph is compared to study dated 12/31/2020 and correlated with chest CT dated 09/26/2020. The heart is enlarged noting atherosclerotic calcification of the thoracic aorta. The pulmonary vasc ulature is noncongested. Chronic interstitial thickening is similar to previous. The lungs and pleural spaces are clear. No pneumothorax is seen. The skeletal structures are osteopenic. The bony thorax is grossly intact. IMPRESSION: Cardiomegaly with no active disease in the chest. ACT 112: Negative or not required by law. Electronically signed by: Porfirio Thomas M.D. 08/14/2021 10:41 AM KUB X-Ray 08/14/21 11:45 KUB HISTORY: Generalized pain. Recent constipation. COMPARISON: [facility] 08/16/2020. FINDINGS: The bowel gas pattern is unremarkable. There are no dilated loops of small bowel to suggest an obstruction. No renal calculi. No ureteral calculi. Calcifications in the deep pelvis likely represent phleboliths. Small amount of well-formed stool seen throughout the colon. No pneumoperitoneum or pneumatosis. Mild levoscoliosis of the lumbar spine. IMPRESSION: 1. No evidence of bowel obstruction. 2. Small amount of well-formed stool seen within the colon. ACT 112: Negative or not required by law. Electronically signed by: Camilo Lr M.D. 08/14/2021 12:54 PM ECG Data Attestation: I personally reviewed and interpreted this ECG as follows: Indication: + SOB/dyspnea Rate (beats per minute): 140 Rhythm: + other ECG Intervals/blocks: + Normal QRS and + Prolonged QT ECG [place]: + Left axis deviation ECG ST segments: + Nonspecific ST abnormalities Additional Comments: Significant artifact noted due to patient's tremor secondary to Parkinson's MDM Narrative This is an 80-year-old female who presents due to concern for shortness of breath. Patient initially describes a recent illness did appear slightly clinically dehydrated. Patient was afebrile and hemodynamically stable. Labs drawn and sent and chest x-ray performed. Patient noted to have elevated BNP and elevated troponin. No acute EKG changes to suggest ACS. Upon additional evaluation, patient admitted to not taking several of her medications last week during an acute illness. Patient with multiple complications secondary to her Parkinson's disease. Patient was initially started on gentle IV fluids here, once the elevated BNP was noted, this was stopped. Patient then given a dose of Lasix. Patient is supposed be taking Lasix daily but states she had not recently. Mild hypokalemia was also noted. I did discuss results with patient and daughter who came to bedside. We discussed need for additional inpatient evaluation and management, they verbalized understanding and were in agreement with plan. Patient was not overtly hypoxic here, had no increased work of breathing. At this time I do not suspect aspiration despite recent illness and history of Parkinson's. An order was placed for continuous cardiac monitoring. The monitor shows a rate of _68_ with _normal sinus__ rhythm. Impression & Plan Dyspnea, Parkinson disease, Elevated troponin, Elevated brain natriuretic peptide (BNP) level Discharge Plan Visit Data Chief Complaint: Shortness of Breath/Dyspnea Stated Complaint: SOB ED Provider: Jeanine Rodriguez Discharge Problem: Dyspnea, Parkinson disease, Elevated troponin, Elevated brain natriuretic peptide (BNP) level Patient Disposition: Admitted As Inpatient Discharge Instructions Interventions: ED Discharge Assessment Last Done: 08/14/21 18:55
[2021-08-14 09:52] LABS: Eosinophils # (auto) 0.06 K/uL (0-0.5); Eosinophils % (auto) 1.2 %; Hemoglobin 13.1 g/dL (12.0-16.0); Immature Granulocytes # (auto) 0.01 K/uL (0.00-0.02); Immature Granulocytes % (auto) 0.2 %; Lymphocytes # (auto) 0.91 K/uL (1.2-3.4); Lymphocytes % (auto) 18.8 %; Mean Corpuscular Hemoglobin 29.4 pg (25-34); Mean Corpuscular Hgb Conc 32.8 g/dL (32-36); Mean Corpuscular Volume 89.9 fL (80-100); Monocytes # (auto) 0.53 K/uL (0.11-0.59); Monocytes % (auto) 10.9 %; Neutrophils # (auto) 3.34 K/uL (1.4-6.5); Neutrophils % (auto) 68.9 %; Platelet Count 200 K/uL (130-400); RDW Standard Deviation 48.9 fL (36.4-46.3); Red Blood Count 4.45 M/uL (4.2-5.4); White Blood Count 4.85 K/uL (4.8-10.8)
--- NOTE | 2021-08-14 10:42 | XRay Report ---
SINGLE VIEW CHEST CLINICAL HISTORY: Dyspnea. FINDINGS: An AP, portable, upright chest radiograph is compared to study dated 12/31/2020 and correlat ed with chest CT dated 09/26/2020. The heart is enlarged noting atherosclerotic calcification of the t horacic aorta. The pulmonary vasculature is noncongested. Chronic interstitial thickening is similar to previous. The lungs and pleural spaces are clear. No pneumothorax is seen. The skeletal structures are osteopenic. The bony thorax is grossly intact. IMPRESSION: Cardiomegaly with no active disease in the chest. ACT 112: Negative or not required by law. Electronically signed by: Porfirio Thomas M.D. 08/14/2021 10:41 AM
[2021-08-14] MEDS ORDERED: CARBIDOPA/LEVODOPA 25/100MG TAB PO SCH (11:45)
[2021-08-14] MEDS ORDERED: ONDANSETRON INJ 2 MG/ML 2 ML VIAL IV STA (11:45)
[2021-08-14 11:47] LABS: Albumin Globulin Ratio 1.9 (0.9-2); Albumin Level 4.2 gm/dl (3.4-5.0); BUN Creatinine Ratio 16.2 (10-20); Calcium 9.1 mg/dl (8.5-10.1); Creatinine Clr Calc Pharmacy 35.8 ml/min; Est GFR (African American) 61.5 ml/min; Est GFR (Non-African American) 53.1 ml/min; Globulin 2.2 gm/dl (2.5-4.0); Magnesium 1.7 mg/dl (1.7-2.4); Potassium 3.3 mmol/L (3.5-5.1); Total Protein 6.4 gm/dl (6.0-8.3)
[2021-08-14 11:52] LABS: Troponin I 0.08 ng/ml (0-0.04)
[2021-08-14] MEDS ORDERED: SODIUM CHLORIDE 0.9% 1000ML 1,000 ML IV SCH (12:00)
[2021-08-14] MEDS ORDERED: FUROSEMIDE 40 MG/4 ML VIAL IV ONE (12:06)
--- NOTE | 2021-08-14 12:55 | XRay Report ---
KUB HISTORY: Generalized pain. Recent constipation. COMPARISON: [facility] 08/16/2020. FINDINGS: The bowel gas pattern is unremarkable. There are no dilated loops of small bowel to suggest an obstruction. No renal calculi. No ureteral calculi. Calcifications in the deep pelvis likely rep resent phleboliths. Small amount of well-formed stool seen throughout the colon. No pneumoperitoneum or pneumatosis. Mild levoscoliosis of the lumbar spine. IMPRESSION: 1. No evidence of bowel obstruction. 2. Small amount of well-formed stool seen within the colon. ACT 112: Negative or not required by law. Electronically signed by: Camilo Lr M.D. 08/14/2021 12:54 PM
--- NOTE | 2021-08-14 14:03 | Electrocardiogram Report ---
Test Reason : Blood Pressure : / mmHG Vent. Rate : 140 BPM Atrial Rate : 250 BPM P-R Int : 000 ms QRS Dur : 082 ms QT Int : 364 ms P-R-T Axes : 000 -47 158 degrees QTc Int : 555 ms Poor data quality, interpretation may be adversely affected Probable Sinus rhythm Left ventricular hypertrophy with repolarization abnormality Abnormal ECG When compared with ECG of 03-JAN-2021 09:09, Artifact precludes comparison Confirmed by Alex Kunz ([id number]) on 08/14/2021 2:03:28 PM Referred By: REFERRED SELF Confirmed By:Alex Kunz
[2021-08-14 14:19] LABS: Appearance Urine Clear (Clear); Bacteria Urine Automated Negative (Negative); Bilirubin Urine Negative (Negative); Blood Urine Negative (Negative); Cast Urine Automated 0 /lpf (0-5); Color Urine Yellow; Epithelial Cell Urine Auto 20-30 /lpf (0-5); Glucose Urine UA Negative (Negative); Ketones Urine Negative (Negative); Leukocyte Esterase Urine 1+ (Negative); Nitrite Urine Negative (Negative); Protein Urine Negative (Negative); RBC Urine Automated 0-4 /hpf (0-4); Specific Gravity Urine 1.006 (1.000-1.030); Urobilinogen Urine Negative (Negative)
--- NOTE | 2021-08-14 14:27 | History & Physical Report ---
Date of Service August 14, 2021 Assessment & Plan (1) Shortness of breath: (2) Elevated troponin: (3) Nausea: (4) History of coronary artery disease: (5) Hypokalemia: Plan: This is an 80-year-old female who has significant past medical history of CAD with history of PCI x7, history of cardiomyopathy with EF 30 to 35% now resolved, diastolic CHF, HTN, HLD, hypothyroidism, Parkinson's disease, prediabetes, GERD, gastroparesis status post EGD and Botox June 2021, macular degeneration, depression, history of SDH, dyskinesia who presents to ED secondary to shortness of breath x1 to 2 days. SOB Known CAD with hx of PCI x 7 Chronic HFpef - hx of cardiomyopathy 12/30 now resolved admit to med tele cycle trop, troponin has been elevated in past, no ecg changes, currently CP free received lasix 40mg IV x 1 in ED, will monitor response for additional dosing in a.m. vs resuming home dose pt does take lasix 20mg daily - will hold for now continue metoprolol and lisinopril obtain echocardiogram - 04/01 revealed improved EF 53%, grade 2 diastolic dysfunction hold on cards eval for now - consider consult if sx worsen or trop bumps further Hypokalemia replete HTN bp elevated in ED, missed meds this a.m. give metoprolol and lisinopril now hold home lasix HLD continue statin Nausea Chronic Gastroparesis Constipation pt with persistent GI sx despite botox family wishing to discuss other options to improve mothers QOL add daily miralax Parkinson disease continue sinemet Depression with anxiety continue zoloft a lot of pts sx may be 2/2 to anxiety DNR/DNI DVT ppx: SCDS, hx of SDH Dispo: med tele, likely d/c tomorrow if sx improve, able to resume home meds and GI weighs on chronic GI sx PCP: [facility]rio Pt was seen and examined in collaboration with Dr. Farmer, please see addendum History of Present Illness Chief Complaint: SOB x 1-2 days. Primary Care Provider: Raisa Martin MD This is an 80-year-old female who has significant past medical history of CAD with history of PCI x7, history of cardiomyopathy with EF 30 to 35% now resolved, diastolic CHF, HTN, HLD, hypothyroidism, Parkinson's disease, prediabetes, GERD, gastroparesis status post EGD and Botox June 2021, macular degeneration, depression, history of SDH, dyskinesia who presents to ED secondary to shortness of breath x1 to 2 days. She admits to being short of breath for the last several months. Over the last 1 to 2 days she notes it being significantly worse. Episodes can occur at rest or with exertion. They also vary in duration from minutes to 1 to 2 hours. This morning she was awoke from her sleep at approximately 4:30 AM and was extremely short of breath. This lasted 1-1/2 hours. She tried cough drops and Tagamet with no relief. Nothing makes symptoms better. It was made worse with walking to and from the bathroom. She also experienced dull substernal chest pressure that was nonradiating and described as, "angina." This lasted for several seconds and resolved without intervention. She also complained of feeling sweaty, but then stated "I always feel sweaty when I wake up at 4 AM." She denies any associated lightheadedness, dizziness or vomiting. She did describe nausea, but has chronic nausea from gastroparesis and feels this was the same. She denies any increased lower extremity swelling or weight gain. She actually admits to weight loss due to difficulty eating with gastroparesis. She did have Botox injection June 2021 without any improvement. She does have chronic constipation her last bowel movement was 2 days ago. She did have a GI bug approximately 1 week ago. Her was also ill. She described it as a stomach cramping and dry heaving for 1 day. She admits to missing a few doses of her Lasix last week. She denies any fever, chills, sweats, lightheadedness, dizziness, syncope, palpitations, cough, hemoptysis, emesis, abdominal pain, dysuria, increased urgency or frequency with urination, melena or hematochezia. Daughter is at bedside who is also concerned regarding her GI symptoms and wishes for her to be evaluated by gastroenterology while here. She feels of her GI symptoms would improve it may alleviate some of her other symptoms. Patient also notes that shortness of breath comes and goes with her anxiety and then gets made worse with increasing tremors. In ED patient remained hemodynamically stable. Her CBC and CMP was generally unremarkable. She did have mild hypokalemia at 3.3. Her troponin was minimally elevated at 0.08 and BNP elevated at 470. Her urinalysis was negative for infection. Her chest x-ray was negative for acute abnormality. Her SARS-CoV-2 was negative. It was felt due to missed doses of Lasix and acute onset shortness of breath she may be suffering from mild decompensation of CHF and received Lasix IV x1 dose. Allergies Allergy/AdvReac Type Severity Reaction Status Date / Time celecoxib AdvReac Intermediate GI SYMPTOMS Verified 08/14/21 10:36 aspirin AdvReac Mild Gastrointestinal Verified 08/14/21 10:36 Upset with 325mg dose. hydrocodone AdvReac Unknown STOMACH Verified 08/14/21 10:36 IRRITATION Home Medications Medication Instructions Recorded Confirmed Type atorvastatin 40 mg tablet 40 mg PO HS 06/25/19 08/14/21 History melatonin 5 mg tablet 5 mg PO HS 01/07/20 08/14/21 History cetirizine 10 mg tablet (Zyrtec) 10 mg PO QAM 08/16/20 08/14/21 History sertraline 100 mg tablet 100 mg PO QAM 08/16/20 08/14/21 History aspirin 81 mg tablet,delayed 81 mg PO QAM 09/26/20 08/14/21 History release cholecalciferol (vitamin D3) 25 25 mcg PO QAM 09/26/20 08/14/21 History mcg (1,000 unit) capsule (Vitamin D3) vit A 300 mcg-C 200 mg-E 27 1 tab PO QAM 09/26/20 08/14/21 History mg-lutein 2 mg and minerals tablet (Ocuvite with Lutein) carbidopa 25 mg-levodopa 100 mg 1.5 tab PO QID 12/31/20 08/14/21 History tablet (Sinemet) levothyroxine 112 mcg tablet 112 mcg PO QAM 12/31/20 08/14/21 History sennosides 8.6 mg-docusate sodium 2 tab PO QAM 12/31/20 08/14/21 History 50 mg tablet (Stool Softener-Laxative) carbidopa ER 50 mg-levodopa 200 mg 1 tab PO HS 06/08/21 08/14/21 History tablet,extended release cyanocobalamin (vitamin B-12) 1,000 mcg PO QPM 06/08/21 08/14/21 History 1,000 mcg tablet (Vitamin B-12) ferrous sulfate 325 mg (65 mg 325 mg PO DAILY 06/08/21 08/14/21 History iron) tablet (iron) furosemide 20 mg tablet (Lasix) 20 mg PO QAM 06/08/21 08/14/21 History lisinopril 5 mg tablet 5 mg PO QAM 06/08/21 08/14/21 History metoprolol succinate 25 mg 25 mg PO QAM 06/08/21 08/14/21 History tablet,extended release 24 hr pantoprazole 40 mg tablet,delayed 40 mg PO QAM 06/08/21 08/14/21 History release albuterol sulfate 90 mcg/actuation 2 puff INHALATION QID 08/14/21 08/14/21 History aerosol inhaler Past Med/Surg History Medical History Anxiety CAD (coronary artery disease) Status post August 2007 PCI of both the RCA and LCX with FABIOLA Status post April 2008 PCI of the mid RCA with 2 FABIOLA Status post May 2008 PCI of the proximal LAD Status post March 2013 PCI of the RCA with a FABIOLA 7 stents total. Chronic back pain Chronic kidney disease stage 3 - monitors Dysphagia Esophageal spasm Gastroparesis GERD (gastroesophageal reflux disease) Hyperlipidemia Hypertension Hypothyroidism Parkinson disease Prediabetes Per records Surgical History History of ankle surgery LEFT History of appendectomy History of cardiac cath 08/2007, 04/2008, 2008, 2012 History of cholecystectomy Per records History of colonoscopy History of heart artery stent x7 total History of herniorrhaphy Per records History of hysterectomy History of thumb surgery Per records- right thumb Hx of angioplasty FOLLOWS [place] S/P left knee arthroscopy S/P right knee arthroscopy x2 Family History Mother Diabetes Brother Myocardial infarction Other No family history of adverse response to anesthesia Social History Smoking Status: Never smoker Second Hand Exposure: No; Hx Alcohol Use: No Hx Substance Use: No Preferred Language: [place] Islander Communication Ability: Effective [employer] Custodian Required: No Beliefs That Will Affect Care: None marital status: Current Living Situation: Spouse Feels Safe at Home: Yes Assistive Devices: Cane, Denture - Upper, Denture - Lower, Glasses and Walker Review of Systems Review of Systems: All systems reviewed & are unremarkable except as noted in HPI & below Physical Exam Physical Exam: Constitutional: WD/WN, elderly, F, tremulous, vitals as above, NAD, sitting up in bed, pleasant, conversing easily Head: Normocephalic, Atraumatic Eyes: PERRL, conjunctivae normal, anicteric sclerae ENMT: external ear and nose normal, oropharynx normal Neck: trachea midline, no thyromegaly normal visual inspection Respiratory: normal respiratory effort, lungs clear to auscultation, no wheeze, rales, rhonchi. Normal insp/exp effort, no accessory muscle use Cardiovascular: RRR, no murmur, no edema Vessels: no JVD or carotid bruit Chest: normal inspection of chest Abdomen: normal bowel sounds, soft, nontender, no hepatosplenomegaly Musculoskeletal: no cyanosis or clubbing, extremities motor strength 5/5 , b/l pill rolling tremors Skin: no rashes, warm and dry normal turgor Neurologic: PERRL, EOMI, accommodation nl, no face palsy, no dysarthria CN's II-XI intact bilaterally and moves all extremities Psychiatric: A+Ox3, euthymic affect Lymphatic: no cervical or axillary lymphadenopathy : deferred Results & Data Results & Data ([facility]) Vital Signs (Past 12 Hours) Vital Signs Temp Pulse Resp BP Pulse Ox 08/14/21 13:56 61 20 167/81 H 100 08/14/21 13:00 62 20 167/78 H 99 08/14/21 12:31 69 20 167/92 H 100 08/14/21 11:31 62 20 169/75 H 99 08/14/21 11:17 62 18 152/83 H 100 08/14/21 10:41 62 20 143/80 H 100 08/14/21 09:21 100 08/14/21 09:08 36.8 C 78 18 154/98 H 98 08/14/21 09:04 157 H 26 H Diagnostic Findings Chest X-Ray 08/14/21 09:12 SINGLE VIEW CHEST CLINICAL HISTORY: Dyspnea. FINDINGS: An AP, portable, upright chest radiograph is compared to study dated 12/31/2020 and correlated with chest CT dated 09/26/2020. The heart is enlarged noting atherosclerotic calcification of the thoracic aorta. The pulmonary vasculature is noncongested. Chronic interstitial thickening is similar to previous. The lungs and pleural spaces are clear. No pneumothorax is seen. The skeletal structures are osteopenic. The bony thorax is grossly intact. IMPRESSION: Cardiomegaly with no active disease in the chest. ACT 112: Negative or not required by law. Electronically signed by: Porfirio Thomas M.D. 08/14/2021 10:41 AM KUB X-Ray 08/14/21 11:45 KUB HISTORY: Generalized pain. Recent constipation. COMPARISON: [facility] 08/16/2020. FINDINGS: The bowel gas pattern is unremarkable. There are no dilated loops of small bowel to suggest an obstruction. No renal calculi. No ureteral calculi. Calcifications in the deep pelvis likely represent phleboliths. Small amount of well-formed stool seen throughout the colon. No pneumoperitoneum or pneumatosis. Mild levoscoliosis of the lumbar spine. IMPRESSION: 1. No evidence of bowel obstruction. 2. Small amount of well-formed stool seen within the colon. ACT 112: Negative or not required by law. Electronically signed by: Camilo Lr M.D. 08/14/2021 12:54 PM Medications Administered Medication List Carbidopa/Levodopa (Carbidopa/Levodopa 25/100mg Tab) 1 tab PO BID [facility] Stop: 09/13/21 11:44 Last Admin: 08/14/21 11:56 Dose: 1 tab Documented by: [id number] Discontinued Medications Furosemide (Furosemide 40 Mg/4 Ml Vial) 40 mg IV ONE ONE Stop: 08/14/21 12:07 Last Admin: 08/14/21 12:13 Dose: 40 mg Documented by: [id number] Sodium Chloride (Nss 1000ml) 1,000 mls @ 200 mls/hr IV .Q5H [facility] Stop: 09/13/21 11:59 Last Admin: 08/14/21 12:08 Dose: Not Given Documented by: [id number] Ondansetron HCl (Ondansetron Inj 2 Mg/Ml 2 Ml Vial) 4 mg IV NOW STA Stop: 08/14/21 11:46 Last Admin: 08/14/21 13:32 Dose: Not Given Documented by: [id number] ECG Additional Comments: difficult to interpret due to tremors but probably sinus rhythm repolarization abnormality COVID-19 Results Results COVID-19 Adm Lab Results: RBC 4.45 M/uL (4.2-5.4) 08/14/21 WBC 4.85 K/uL (4.8-10.8) 08/14/21 Hgb 13.1 g/dL (12.0-16.0) 08/14/21 Hct 40.0 % (37-47) 08/14/21 Plt Count 200 K/uL (130-400) 08/14/21 Neutrophils (%) (Auto) 68.9 % 08/14/21 Lymphocytes (%) (Auto) 18.8 % 08/14/21 Monocytes # (Auto) 0.53 K/uL (0.11-0.59) 08/14/21 Eosinophils # (Auto) 0.06 K/uL (0-0.5) 08/14/21 Immature Granulocyte % (Auto) 0.2 % 08/14/21 Neutrophils # (Auto) 3.34 K/uL (1.4-6.5) 08/14/21 Lymphocytes # (Auto) 0.91 K/uL (1.2-3.4) L 08/14/21 Monocytes # (Auto) 0.53 K/uL (0.11-0.59) 08/14/21 Eosinophils # (Auto) 0.06 K/uL (0-0.5) 08/14/21 Basophils # (Auto) 0.00 K/uL (0-0.2) 08/14/21 Immature Granulocyte # (Auto) 0.01 K/uL (0.00-0.02) 08/14/21 Na 139 mmol/L (136-145) 08/14/21 K 3.3 mmol/L (3.5-5.1) L 08/14/21 Cl 101 mmol/L (98-107) 08/14/21 CO2 31 mmol/L (21-32) 08/14/21 Anion Gap 7 (3-11) 08/14/21 BUN 16 mg/dl (6-23) 08/14/21 Creatinine 0.99 mg/dl (0.6-1.2) 08/14/21 BUN/Creatinine Ratio 16.2 (10-20) 08/14/21 Glucose Level 95 mg/dl (70-99(Fasting)) 08/14/21 Ca 9.1 mg/dl (8.5-10.1) 08/14/21 Total Bilirubin 1.0 mg/dl (0.2-1.0) 08/14/21 AST/SGOT 11 U/L (13-39) L 08/14/21 ALT/SGPT 3 U/L (7-52) L 08/14/21 Alkaline Phosphatase 52 U/L (34-104) 08/14/21 Total Protein 6.4 gm/dl (6.0-8.3) 08/14/21 Albumin 4.2 gm/dl (3.4-5.0) 08/14/21 Globulin 2.2 gm/dl (2.5-4.0) L 08/14/21 Albumin/Globulin Ratio 1.9 (0.9-2) 08/14/21 Troponin I 0.08 ng/ml (0-0.04) H* 08/14/21 SARS-CoV-2, RNA, NAAT NEGATIVE (NEGATIVE) 08/14/21 Chest X-Ray 08/14/21 Code Status & VTE Plan Code Status DNR VTE Prophylaxis Plan VTE Prophylaxis will be ordered: Yes Supervising Physician Co-Signing Physician Notes I have seen and examined the patient at bedside, in presence of her . I have reviewed chart, vitals, labs, imaging and medications. I have discussed the case with Saloni MARY. In Summary, this is a 80-year-old female with parkinsonism, chronic diastolic CHF, hypertension, gastroparesis, anxiety/depression who presented to ED with worsening shortness of breath at home. States her shortness of breath is ongoing for months but acutely worsened yesterday. States she gets short of breath around 8 PM while lying in bed and resolved on its own. No orthopnea. Able to sleep well throughout the night on one pillow. Denies any weight gain. Denies any swelling. Reports compliance to her medication including diuretic. Currently in the ED, she is afebrile, emergency room, saturating well in room air breathing comfortably. Lung sounds clear. Awake alert oriented and answers appropriately. Bilateral hand tremors due to parkinsonism. Abdomen benign. Trace edema in lower extremity. Given dose of IV Lasix in ED. Monitor this point, continue home medicine. Overnight observation. Likely can discharge tomorrow. Rest as per note above.
[2021-08-14] MEDS ORDERED: POTASSIUM CHLORIDE CRTAB 20 MEQ TABCR PO STA (14:28)
[2021-08-14] MEDS ORDERED: ASPIRIN 81 MG ECTAB PO STA (15:00)
[2021-08-14] MEDS ORDERED: lisinopril 5 MG TAB PO STA (15:00)
[2021-08-14] MEDS ORDERED: METOPROLOL SUCC 25MG EXT REL TAB PO STA (15:00)
[2021-08-14] MEDS ORDERED: CARBIDOPA/LEVODOPA 25/100MG TAB PO ONE (15:30)
[2021-08-14] MEDS ORDERED: ONDANSETRON INJ 2 MG/ML 2 ML VIAL IV PRN (20:35)
[2021-08-14] MEDS ORDERED: POLYETHYLENE (MIRALAX) 17 GM PACK PO PRN (20:35)
[2021-08-14] MEDS ORDERED: ALUMINUM/MAGNESIUM SUSP 30 ML UDC PO PRN (20:35)
[2021-08-14] MEDS ORDERED: MAGNESIUM HYDROXIDE SUSP 30 ML UDC PO PRN (20:35)
[2021-08-14] MEDS: ATORVASTATIN 40 MG TAB PO SCH (21:41)
[2021-08-14] MEDS: CARBIDOPA/LEVODOPA 25/100MG TAB PO SCH ×2 (21:41→22:12)
[2021-08-14] MEDS: MELATONIN 3 MG TAB PO SCH (21:42)
[2021-08-14] MEDS: CYANOCOBALAMIN (B-12) 500 MCG TABLET PO SCH (21:42)
[2021-08-14] MEDS: CARBIDOPA/LEVODOPA 50/200MG EXT REL TAB PO SCH (21:42)
[2021-08-15] MEDS ORDERED: COUGH DROP (SUGAR FREE) LOZ 24 LOZ/1 BOX BUCCAL PRN (05:51)
[2021-08-15 06:08] LABS: Hematocrit (blood only) 43.5 % (37-47); Hemoglobin 14.6 g/dL (12.0-16.0); Mean Corpuscular Hemoglobin 29.9 pg (25-34); Mean Corpuscular Hgb Conc 33.6 g/dL (32-36); Mean Platelet Volume 10.6 fL (7.4-10.4); Platelet Count 235 K/uL (130-400); RDW Standard Deviation 48.5 fL (36.4-46.3); Red Blood Count 4.89 M/uL (4.2-5.4); White Blood Count 5.97 K/uL (4.8-10.8)
[2021-08-15 06:24] LABS: BUN Creatinine Ratio 17.5 (10-20); Calcium 9.6 mg/dl (8.5-10.1); Creatinine Clr Calc Pharmacy 35.5 ml/min; Est GFR (Non-African American) 54.4 ml/min; Magnesium 1.7 mg/dl (1.7-2.4); Potassium 3.8 mmol/L (3.5-5.1)
[2021-08-15 06:58] LABS: Estimated Average Glucose 128 mg/dl; Hemoglobin A1C 6.1 % (4.5-5.6)
[2021-08-15] MEDS: ALBUTEROL HFA 8 GM INHALER INH SCH ×4 (07:48→20:16)
[2021-08-15] MEDS ORDERED: PANTOprazole 40 MG TAB PO SCH (09:00)
[2021-08-15] MEDS ORDERED: lisinopril 5 MG TAB PO SCH (09:00)
[2021-08-15] MEDS ORDERED: METOPROLOL SUCC 25MG EXT REL TAB PO SCH (09:00)
[2021-08-15] MEDS: ASPIRIN 81 MG ECTAB PO SCH (09:09)
[2021-08-15] MEDS: CETIRIZINE HCL 10 MG TABLET PO SCH (09:09)
[2021-08-15] MEDS: FERROUS SULFATE 325 MG TAB PO SCH (09:09)
[2021-08-15] MEDS: CHOLECALCIFEROL 1,000 UNITS 25 MCG TAB PO SCH (09:09)
[2021-08-15] MEDS: CARBIDOPA/LEVODOPA 25/100MG TAB PO SCH ×4 (09:10→20:02)
[2021-08-15] MEDS: SERTRALINE HCL 100 MG TABLET PO SCH (09:11)
[2021-08-15] MEDS: CEROVITE ADV FORMULA TAB PO SCH (09:11)
[2021-08-15] MEDS: LEVOTHYROXINE SODIUM 112 MCG TABLET PO SCH (09:11)
[2021-08-15] MEDS: DOCUSATE SODIUM/SENNA 50/8.6MG TAB PO SCH (09:11)
[2021-08-15] MEDS: POLYETHYLENE (MIRALAX) 17 GM PACK PO SCH (09:13)
--- NOTE | 2021-08-15 11:27 | Gastrointestinal Consultation ---
Date of Consultation August 15, 2021 Assessment & Plan (1) Nausea & vomiting: (2) Gastroparesis: Patient is an 80 years old female with history of Parkinson's, gastroparesis evaluated today for persistent nausea and vomiting, heartburn symptoms. Recent EGD w botox injection not helpful. Suspect some of her symptoms may be related to her meds (Carbidopa-Levodopa; Sertraline) - Trial increase Protonix to 40mg BID - Scheduled Maalox TID - Scheduled Zofran TID; consider trial of Emend IV if n/v persist - Daily bowel regimen w Miralax and Senna as dosed - Encourage ambulation - Director Of Clinical Services consult for oral protein supplements; Gastroparesis diet Supervising Physician Co-Signing Physician Notes I have personally seen and examined the patient with BEN Shoemaker. Her note reflects my exam and findings. I agree with her impression and plan. Feeling a little better GI mike. Trevon Roque M.D. History of Present Illness Reason for Consultation: Worsening nausea, gastroparesis Requesting Physician: John Britton MD Attending Physician: Dr. Trevon Roque History of Present Illness Patient is an 80 years old female with history of Parkinson's, gastroparesis seen today for worsening nausea symptoms. Patient had been evaluated in our outpatient GI clinic recently. She has had an EGD with findings of small hiatal hernia, Botox injection by Dr. Diop in June however states that is not helping much with her nausea symptoms. She is still having quite a bit of nausea and vomiting, feels that her epigastric area is bloated, only tolerating small bites of meals. At home she usually takes [place] and simethicone to help with the bloating. She does have quite a bit of heartburn symptoms as well, on Protonix 40 mg daily at home. Her last bowel movement was about 3 days ago. She usually takes some laxatives. KUB today showed small amounts of stool in the bowels no signs of obstruction Allergies Allergy/AdvReac Type Severity Reaction Status Date / Time celecoxib AdvReac Intermediate GI SYMPTOMS Verified 08/14/21 10:36 aspirin AdvReac Mild Gastrointestinal Verified 08/14/21 10:36 Upset with 325mg dose. hydrocodone AdvReac Unknown STOMACH Verified 08/14/21 10:36 IRRITATION Home Medications Medication Instructions Recorded Confirmed Type atorvastatin 40 mg tablet 40 mg PO HS 06/25/19 08/14/21 History melatonin 5 mg tablet 5 mg PO HS 01/07/20 08/14/21 History cetirizine 10 mg tablet (Zyrtec) 10 mg PO QAM 08/16/20 08/14/21 History sertraline 100 mg tablet 100 mg PO QAM 08/16/20 08/14/21 History aspirin 81 mg tablet,delayed 81 mg PO QAM 09/26/20 08/14/21 History release cholecalciferol (vitamin D3) 25 25 mcg PO QAM 09/26/20 08/14/21 History mcg (1,000 unit) capsule (Vitamin D3) vit A 300 mcg-C 200 mg-E 27 1 tab PO QAM 09/26/20 08/14/21 History mg-lutein 2 mg and minerals tablet (Ocuvite with Lutein) carbidopa 25 mg-levodopa 100 mg 1.5 tab PO QID 12/31/20 08/14/21 History tablet (Sinemet) levothyroxine 112 mcg tablet 112 mcg PO QA 12/31/20 08/14/21 History sennosides 8.6 mg-docusate sodium 2 tab PO QAM 12/31/20 08/14/21 History 50 mg tablet (Stool Softener-Laxative) carbidopa ER 50 mg-levodopa 200 mg 1 tab PO HS 06/08/21 08/14/21 History tablet,extended release cyanocobalamin (vitamin B-12) 1,000 mcg PO QPM 06/08/21 08/14/21 History 1,000 mcg tablet (Vitamin B-12) ferrous sulfate 325 mg (65 mg 325 mg PO DAILY 06/08/21 08/14/21 History iron) tablet (iron) furosemide 20 mg tablet (Lasix) 20 mg PO QAM 06/08/21 08/14/21 History lisinopril 5 mg tablet 5 mg PO QA 06/08/21 08/14/21 History metoprolol succinate 25 mg 25 mg PO QAM 06/08/21 08/14/21 History tablet,extended release 24 hr pantoprazole 40 mg tablet,delayed 40 mg PO QAM 06/08/21 08/14/21 History release albuterol sulfate 90 mcg/actuation 2 puff INHALATION QID 08/14/21 08/14/21 History aerosol inhaler Patient History Medical History Anxiety CAD (coronary artery disease) Status post August 2007 PCI of both the RCA and LCX with FABIOLA Status post April 2008 PCI of the mid RCA with 2 FABIOLA Status post May 2008 PCI of the proximal LAD Status post March 2013 PCI of the RCA with a FABIOLA 7 stents total. Chronic back pain Chronic kidney disease stage 3 - monitors Dysphagia Esophageal spasm Gastroparesis GERD (gastroesophageal reflux disease) Hyperlipidemia Hypertension Hypothyroidism Parkinson disease Prediabetes Per records Surgical History History of ankle surgery LEFT History of appendectomy History of cardiac cath 08/2007, 04/2008, 2008, 2012 History of cholecystectomy Per records History of colonoscopy History of heart artery stent x7 total History of herniorrhaphy Per records History of hysterectomy History of thumb surgery Per records- right thumb Hx of angioplasty FOLLOWS [place] S/P left knee arthroscopy S/P right knee arthroscopy x2 Family History Mother Diabetes Brother Myocardial infarction Other No family history of adverse response to anesthesia Social History Smoking Status: Never smoker Second Hand Exposure: No; Hx Alcohol Use: No Hx Substance Use: No Preferred Language: Malian Communication Ability: Effective Hospital Superintendent Required: No Beliefs That Will Affect Care: None marital status: Current Living Situation: Spouse Other Information That Helps Us Care for You: No Feels Safe at Home: Yes Safety Concerns: Feels Safe At This Time Assistive Devices: Cane and Walker Assistive Devices Comment: transport chair Review of Systems Review of Systems: All systems reviewed & are unremarkable except as noted in HPI & below Physical Exam Constitutional: WD/WN, vitals as above well groomed, cooperative and comfortable Eyes: PERRL, conjunctivae normal, anicteric sclerae ENMT: external ear and nose normal, oropharynx normal Respiratory: normal respiratory effort, lungs clear to auscultation Cardiovascular: RRR, no murmur, no edema Gastrointestinal (Abdomen): normal bowel sounds, soft, nontender, no hepatosplenomegaly Skin: no rashes, warm and dry Neurologic: Motor/Sensory: + tremor Psychiatric: A+Ox3, euthymic affect Lymphatic: no lymphedema Results & Data ([facility]) Vital Signs (Past 12 Hours) Vital Signs Temp Pulse Pulse Resp BP BP Pulse Ox 08/15/21 11:00 69 20 97 08/15/21 07:48 71 22 96 08/15/21 07:10 59 L 08/15/21 07:01 36.4 C L 66 18 153/79 H 96 08/15/21 02:07 36.4 C L 64 18 155/88 H 93 08/14/21 23:50 56 L
--- NOTE | 2021-08-15 11:51 | Hospitalist Progress Note ---
Date of Service August 15, 2021 Assessment & Plan (1) Shortness of breath: (2) Elevated troponin: (3) Nausea: (4) History of coronary artery disease: (5) Hypokalemia: Plan: This is an 80-year-old female who has significant past medical history of CAD with history of PCI x7, history of cardiomyopathy with EF 30 to 35% now resolved, diastolic CHF, HTN, HLD, hypothyroidism, Parkinson's disease, prediabetes, GERD, gastroparesis status post EGD and Botox June 2021, macular degeneration, depression, history of SDH, dyskinesia who presents to ED secondary to shortness of breath x1 to 2 days and nausea/abdominal discomfort Syncope Known CAD with hx of PCI x 7 Chronic HFpef - hx of cardiomyopathy 12/30 now resolved Trop mildly elevated but trend is flat TTE pending Episode of syncope and reported bradycardia while working with PT today. EKG after the event shows sinus rhythm. Will ask for Cardiology evaluation Intractable Nausea/vomiting -Chronic gastroparesis -Recent botox injection but with no improvement -Appreciate GI input- place on zofran TID, consider Emend if no improvement -add Reglan PRN Hypokalemia replete PRN HTN continue metoprolol and lisinopril with hold parameters hold home lasix HLD continue statin Parkinson disease continue sinemet Depression with anxiety continue zoloft DNR/DNI DVT ppx: SCDS, hx of SDH Dispo: med tele, from home PCP: Mario Admission and Anticipated Discharge Date Admission Date: August 14, 2021 Subjective Patient evaluated twice today. In morning, reports feeling "sick" to her stomach which has been a chronic issue Later while working with physical therapy, felt light headed and dizzy and had a 15-30 sec LOC. Reportedly during this time HR was noted in the 30s. A rapid response was called. I arrived shortly later. Patient feels woozy but denies feeling SOB or chest pain. Still with ongoing nausea Physical Exam Physical Exam: appears thin, frail, stated age, appears nauseous Respiratory: breathing comfortably on room air, no accessory muscle use, no wheezing Cardiovascular: regular rate and rhythm, no audible murmurs Gastrointestinal (Abdomen): soft, non tender Musculoskeletal: No edema, thin extremities Results & Data Results & Data ([facility]) Vital Signs (Past 12 Hours) Vital Signs Temp Pulse Pulse Resp BP BP Pulse Ox 08/15/21 11:26 36.3 C L 68 20 95/58 L 95 08/15/21 11:00 69 20 97 08/15/21 07:48 71 22 96 08/15/21 07:10 59 L 08/15/21 07:01 36.4 C L 66 18 153/79 H 96 08/15/21 02:07 36.4 C L 64 18 155/88 H 93 08/14/21 23:50 56 L Laboratory Results Short CBC 08/15/21 Range/Units 05:25 WBC 5.97 (4.8-10.8) K/uL Hgb 14.6 (12.0-16.0) g/dL Hct 43.5 (37-47) % Plt Count 235 (130-400) K/uL BMP 08/15/21 05:25 Sodium 138 Potassium 3.8 Chloride 99 Carbon Dioxide 30 BUN 17 Creatinine 0.97 Glucose 85 Calcium 9.6 Cardiac Enzymes 08/14/21 08/14/21 08/14/21 Range/Units 09:35 15:59 21:08 Troponin I 0.08 H* 0.08 H* 0.09 H* (0-0.04) ng/ml Urine 08/14/21 Range/Units Unknown Urine Color Yellow Urine Appearance Clear (Clear) Urine pH 7.0 (4.5-7.5) Ur Specific [place] 1.006 (1.000-1.030) Urine Protein Negative (Negative) Urine Glucose (UA) Negative (Negative) Medications Administered Current Inpatient Medications Acetaminophen (Acetaminophen 325 Mg Tab) 650 mg PO Q4H PRN PRN Reason: Pain or Fever Stop: 09/13/21 20:34 Al Hydrox/Mg Hydrox/Simethicone (Aluminum/Magnesium Susp 30 Ml Udc) 15 ml PO TID [facility] Stop: 09/14/21 13:59 Albuterol (Albuterol Hfa 8 Gm Inhaler) 2 puffs INH QIDR JESUS Stop: 09/14/21 06:59 Last Admin: 08/15/21 10:59 Dose: 2 puffs Documented by: Aspirin (Aspirin 81 Mg Ectab) 81 mg PO QAM [facility] Stop: 09/14/21 08:59 Last Admin: 08/15/21 09:09 Dose: 81 mg Documented by: Atorvastatin Calcium (Atorvastatin 40 Mg Tab) 40 mg PO HS [facility] Stop: 09/13/21 20:59 Last Admin: 08/14/21 21:41 Dose: 40 mg Documented by: Carbidopa/Levodopa (Carbidopa/Levodopa 50/200mg Ext Rel Tab) 1 tab PO [facility] Stop: 09/13/21 20:59 Last Admin: 08/14/21 21:42 Dose: 1 tab Documented by: Carbidopa/Levodopa (Carbidopa/Levodopa 25/100mg Tab) 1.5 tab PO QID [facility] Stop: 09/13/21 20:34 Last Admin: 08/15/21 09:10 Dose: 1.5 tab Documented by: Cetirizine HCl (Cetirizine Hcl 10 Mg Tablet) 10 mg PO QAM [facility] Stop: 09/14/21 08:59 Last Admin: 08/15/21 09:09 Dose: 10 mg Documented by: Cyanocobalamin (Cyanocobalamin (B-12) 500 Mcg Tablet) 1,000 mcg PO QPM [facility] Stop: 09/13/21 20:59 Last Admin: 08/14/21 21:42 Dose: 1,000 mcg Documented by: Ferrous Sulfate (Ferrous Sulfate 325 Mg Tab) 325 mg PO DAILY [facility] Stop: 09/14/21 08:59 Last Admin: 08/15/21 09:09 Dose: 325 mg Documented by: Levothyroxine Sodium (Levothyroxine Sodium 112 Mcg Tablet) 112 mcg PO QAM [facility] Stop: 09/14/21 08:59 Last Admin: 08/15/21 09:11 Dose: 112 mcg Documented by: Lisinopril (L[facility]opril 5 Mg Tab) [facility] Stop: 09/14/21 08:59 Last Admin: 08/15/21 09:13 Dose: 5 mg Documented by: Magnesium Hydroxide (Magnesium Hydroxide Susp 30 Ml Udc) 30 ml PO Q12H PRN PRN Reason: Constipation Stop: 09/13/21 20:34 Melatonin (Melatonin 3 Mg Tab) 4.5 mg PO [facility] Stop: 09/13/21 20:59 Last Admin: 08/14/21 21:42 Dose: 4.5 mg Documented by: Menthol (Cough Drop (Sugar Free) Jeremiah 24 Jeremiah/1 Box) 1 jeremiah BUCCAL PRN PRN PRN Reason: Sore Throat Stop: 09/14/21 05:50 Metoprolol Succinate (Metoprolol Succ 25mg Ext Rel Tab) 25 mg [facility] Stop: 09/14/21 08:59 Last Admin: 08/15/21 09:11 Dose: 25 mg Documented by: Multivitamins/Minerals (Cerovite Adv Formula Tab) 1 tab PO QAM [facility] Stop: 09/14/21 08:59 Last Admin: 08/15/21 09:11 Dose: 1 tab Documented by: Ondansetron HCl (Ondansetron Inj 2 Mg/Ml 2 Ml Vial) 4 mg IV Q8 [facility] Stop: 09/14/21 13:59 Pantoprazole Sodium (Pantoprazole 40 Mg Tab) 40 mg PO BID [facility] Stop: 09/14/21 20:59 Polyethylene Glycol (Polyethylene (Miralax) 17 Gm Pack) 17 gm PO DAILY PRN PRN Reason: Constipation Stop: 09/13/21 20:34 Polyethylene Glycol (Polyethylene (Miralax) 17 Gm Pack) 17 gm PO DAILY [facility] Stop: 09/14/21 08:59 Last Admin: 08/15/21 09:13 Dose: 17 gm Documented by: Senna/Docusate Sodium (Docusate Sodium/Senna 50/8.6mg Tab) 2 tab [facility] Stop: 09/14/21 08:59 Last Admin: 08/15/21 09:11 Dose: 2 tab Documented by: Sertraline HCl (Sertraline Hcl 100 Mg Tablet) 100 mg [facility] Stop: 09/14/21 08:59 Last Admin: 08/15/21 09:11 Dose: 100 mg Documented by: Vitamin D (Cholecalciferol 1,000 Units 25 Mcg Tab) 1,000 units PO QAM [facility] Stop: 09/14/21 08:59 Last Admin: 08/15/21 09:09 Dose: 1,000 units Documented by:
[2021-08-15] MEDS ORDERED: METOCLOPRAMIDE HCL INJ 5 MG/ML 2 ML VIAL IV PRN (11:53)
[2021-08-15] MEDS: ONDANSETRON INJ 2 MG/ML 2 ML VIAL IV SCH ×2 (13:58→21:24)
[2021-08-15] MEDS: ALUMINUM/MAGNESIUM SUSP 30 ML UDC PO SCH ×2 (13:59→20:11)
--- NOTE | 2021-08-15 14:52 | Cardiology Consultation ---
Date of Consultation August 15, 2021 Assessment & Plan (1) Syncope: (2) Gastroparesis: (3) Nausea & vomiting: (4) Parkinson's disease: (5) Orthostatic hypotension: (6) Neurogenic orthostatic hypotension: Patient is an 80-year-old female well-known to cardiovascular service. She carries a history as outlined above longstanding ischemic heart disease, cardiomyopathy in past systolic and diastolic heart failure all managed conservatively after long discussions and mutual decision making. She presents now with symptoms of dyspnea as well as recent episodes of abdominal cramping and possible gastroenteritis. Issues with gastroparesis of been well outlined. She did receive a dose of IV furosemide on presentation. This morning with ambulation suffered an orthostatic syncopal event. Review of telemetry reveals transient sinus bradycardia but no pauses or conduction changes. EKGs do not reflect acute ischemia. Echocardiogram is actually improved in comparison to prior study Plan: Continue conservative therapy. Given resting bradycardia and orthostasis will reduce metoprolol succinate dosing. Exam does not suggest congestive failure at this time would not give additional diuretic, will continue to hold lisinopril but likely resume at lower dosing possible the addition of low-dose nitrates Caution with any increase in activity given documented orthostasis History of Present Illness Reason for Consultation: Bradycardia Requesting Physician: Dr. Britton Attending Physician: John Britton MD History of Present Illness Patient is an 80-year-old female with ongoing issues with 1. Parkinsonism with marked dysmetria, orthostatic hypotension with multiple falls, gastroparesis 2. Hypertension with diastolic dysfunction 3. Chronic ischemic heart disease Status postApril 2007 PCI of both the RCA and LCX with FABIOLA Status postDecember 2007 PCI of the mid RCA with 2 FABIOLA Status postJanuary 2008 PCI of the proximal LAD Status postNovember 2012 PCI of the RCA with a FABIOLA Cardiac catheterization on 03/25/2013 which demonstrated the following: No evidence of LM disease. 70% lesion in the D1. Mild disease in a medium sized proximal LAD. Nondominant LCX with an existing Dominant RCA with a 90% 10 mm long culprit lesion in the mid portion of the vessel s/p PCI with a Xience Expedition Everolimus Eluting coronary stent. 4. Ischemic cardiomyopathy with mild left ventricular dysfunction 5. Dyslipidemia 6. Chronic troponin elevation Patient referred after admission with symptoms of nocturnal dyspnea abdominal pain and cramping following GI illness present in patient and family. No acute findings revealed although this morning while patient walking with physical therapy noted transient bradycardia and orthostatic syncope Patient very sedentary at home due to past orthostasis and falls, gait instability in association with parkinsonism She denies fevers or chills notes recent gastroenteritis. Notes no bleeding difficulties. Has not used any sublingual nitroglycerin recently. Has been aware of episodes awakening approximately 4:00 in the morning feeling short of breath. No acute weight loss or gain. No bleeding difficulties. Has been taking medications as prescribed but does have difficulty with larger pills Patient at admission received single dose of IV furosemide for elevated BNP Allergies Allergy/AdvReac Type Severity Reaction Status Date / Time celecoxib AdvReac Intermediate GI SYMPTOMS Verified 08/14/21 10:36 aspirin AdvReac Mild Gastrointestinal Verified 08/14/21 10:36 Upset with 325mg dose. hydrocodone AdvReac Unknown STOMACH Verified 08/14/21 10:36 IRRITATION Home Medications Medication Instructions Recorded Confirmed Type atorvastatin 40 mg tablet 40 mg PO HS 06/25/19 08/14/21 History melatonin 5 mg tablet 5 mg PO HS 01/07/20 08/14/21 History cetirizine 10 mg tablet (Zyrtec) 10 mg PO QA 08/16/20 08/14/21 History sertraline 100 mg tablet 100 mg PO QA 08/16/20 08/14/21 History aspirin 81 mg tablet,delayed 81 mg PO QAM 09/26/20 08/14/21 History release cholecalciferol (vitamin D3) 25 25 mcg PO QAM 09/26/20 08/14/21 History mcg (1,000 unit) capsule (Vitamin D3) vit A 300 mcg-C 200 mg-E 27 1 tab PO QAM 09/26/20 08/14/21 History mg-lutein 2 mg and minerals tablet (Ocuvite with Lutein) carbidopa 25 mg-levodopa 100 mg 1.5 tab PO QID 12/31/20 08/14/21 History tablet (Sinemet) levothyroxine 112 mcg tablet 112 mcg PO QAM 12/31/20 08/14/21 History sennosides 8.6 mg-docusate sodium 2 tab PO QAM 12/31/20 08/14/21 History 50 mg tablet (Stool Softener-Laxative) carbidopa ER 50 mg-levodopa 200 mg 1 tab PO HS 06/08/21 08/14/21 History tablet,extended release cyanocobalamin (vitamin B-12) 1,000 mcg PO QPM 06/08/21 08/14/21 History 1,000 mcg tablet (Vitamin B-12) ferrous sulfate 325 mg (65 mg 325 mg PO DAILY 06/08/21 08/14/21 History iron) tablet (iron) furosemide 20 mg tablet (Lasix) 20 mg PO QAM 06/08/21 08/14/21 History lisinopril 5 mg tablet 5 mg PO QAM 06/08/21 08/14/21 History metoprolol succinate 25 mg 25 mg PO QAM 06/08/21 08/14/21 History tablet,extended release 24 hr pantoprazole 40 mg tablet,delayed 40 mg PO QAM 06/08/21 08/14/21 History release albuterol sulfate 90 mcg/actuation 2 puff INHALATION QID 08/14/21 08/14/21 History aerosol inhaler Patient History Medical History Anxiety CAD (coronary artery disease) Status post August 2007 PCI of both the RCA and LCX with FABIOLA Status post April 2008 PCI of the mid RCA with 2 FABIOLA Status post May 2008 PCI of the proximal LAD Status post March 2013 PCI of the RCA with a FABIOLA 7 stents total. Chronic back pain Chronic kidney disease stage 3 - monitors Dysphagia Esophageal spasm Gastroparesis GERD (gastroesophageal reflux disease) Hyperlipidemia Hypertension Hypothyroidism Parkinson disease Prediabetes Per records Surgical History History of ankle surgery LEFT History of appendectomy History of cardiac cath 08/2007, 04/2008, 2008, 2012 History of cholecystectomy Per records History of colonoscopy History of heart artery stent x7 total History of herniorrhaphy Per records History of hysterectomy History of thumb surgery Per records- right thumb Hx of angioplasty FOLLOWS [place] S/P left knee arthroscopy S/P right knee arthroscopy x2 Family History Mother Diabetes Brother Myocardial infarction Other No family history of adverse response to anesthesia Social History Smoking Status: Never smoker Second Hand Exposure: No; Hx Alcohol Use: No Hx Substance Use: No Preferred Language: [place]an Communication Ability: Effective Vocational Nursing Instructor Required: No Beliefs That Will Affect Care: None marital status: Current Living Situation: Spouse Other Information That Helps Us Care for You: No Feels Safe at Home: Yes Safety Concerns: Feels Safe At This Time Assistive Devices: Cane and Walker Assistive Devices Comment: transport chair Review of Systems Review of Systems: All systems reviewed & are unremarkable except as noted in HPI & below Physical Exam Constitutional: + thin; no acute distress Eyes: PERRL, conjunctivae normal, anicteric sclerae ENMT: external ear and nose normal, oropharynx normal Neck: trachea midline, no thyromegaly Respiratory: normal respiratory effort, lungs clear to auscultation Cardiovascular: Rate/Rhythm: regular rate and regular rhythm Gastrointestinal (Abdomen): normal bowel sounds, soft, nontender, no hepatosplenomegaly Musculoskeletal: Head/Neck/Chest: + head abnormal to inspection and normocephalic Neurologic: Motor/Sensory: + tremor Results & Data ([facility]) Vital Signs (Past 12 Hours) Vital Signs Temp Pulse Pulse Resp BP BP Pulse Ox 08/15/21 14:39 36.2 C L 70 18 150/77 H 96 08/15/21 13:51 08/15/21 11:26 36.3 C L 68 20 95/58 L 95 08/15/21 11:00 69 20 97 08/15/21 07:48 71 22 96 08/15/21 07:10 59 L 08/15/21 07:01 36.4 C L 66 18 153/79 H 96 Pulse Ox 08/15/21 14:39 08/15/21 13:51 94 08/15/21 11:26 08/15/21 11:00 08/15/21 07:48 08/15/21 07:10 08/15/21 07:01 Laboratory Results Laboratory Results - last 24 hr 08/14/21 08/14/21 08/15/21 15:59 21:08 05:25 WBC 5.97 RBC 4.89 Hgb 14.6 Hct 43.5 MCV 89.0 MCH 29.9 MCHC 33.6 RDW Std Deviation 48.5 H RDW Coeff of Ananya 15.0 H Plt Count 235 MPV 10.6 H Sodium Potassium Chloride Carbon Dioxide Anion Gap BUN Creatinine Est Cr Clr Drug Dosing Est GFR ( Amer) Est GFR (Non-Af Amer) BUN/Creatinine Ratio Glucose POC Glucose Estimat Average Glucose Hemoglobin A1c Calcium Magnesium Troponin I 0.08 H* 0.09 H* 08/15/21 08/15/21 08/15/21 05:25 05:25 11:31 WBC RBC Hgb Hct MCV MCH MCHC RDW Std Deviation RDW Coeff of Ananya Plt Count MPV Sodium 138 Potassium 3.8 Chloride 99 Carbon Dioxide 30 Anion Gap 9 BUN 17 Creatinine 0.97 Est Cr Clr Drug Dosing 35.5 Est GFR ( Amer) 63.0 Est GFR (Non-Af Amer) 54.4 BUN/Creatinine Ratio 17.5 Glucose 85 POC Glucose 109 H Estimat Average Glucose 128 Hemoglobin A1c 6.1 H Calcium 9.6 Magnesium 1.7 Troponin I (1) Syncope Syncope type: unspecified Qualified Code(s): R55 - Syncope and collapse
[2021-08-15] MEDS: CARBIDOPA/LEVODOPA 50/200MG EXT REL TAB PO SCH (20:02)
[2021-08-15] MEDS: ATORVASTATIN 40 MG TAB PO SCH (20:02)
[2021-08-15] MEDS: CYANOCOBALAMIN (B-12) 500 MCG TABLET PO SCH (20:03)
[2021-08-15] MEDS: MELATONIN 3 MG TAB PO SCH (20:03)
[2021-08-15] MEDS: PANTOprazole 40 MG TAB PO SCH (20:04)
[2021-08-15] MEDS: ACETAMINOPHEN 325 MG TAB PO PRN (21:30)
[2021-08-16] MEDS: ONDANSETRON INJ 2 MG/ML 2 ML VIAL IV SCH (05:58)
--- NOTE | 2021-08-16 06:58 | Electrocardiogram Report ---
Test Reason : Blood Pressure : / mmHG Vent. Rate : 059 BPM Atrial Rate : 059 BPM P-R Int : 196 ms QRS Dur : 092 ms QT Int : 446 ms P-R-T Axes : -06 -34 158 degrees QTc Int : 441 ms Sinus bradycardia with Premature atrial complexes in a pattern of bigeminy Left axis deviation Left ventricular hypertrophy with repolarization abnormality Abnormal ECG When compared with ECG of 14-AUG-2021 09:06, Premature atrial complexes are now Present No significant change Confirmed by Ezio Catalan ([id number]) on 08/16/2021 6:58:00 AM Referred By: REFERRED SELF Confirmed By:Ezio Catalan
--- NOTE | 2021-08-16 07:11 | Electrocardiogram Report ---
Test Reason : Blood Pressure : / mmHG Vent. Rate : 073 BPM Atrial Rate : 073 BPM P-R Int : 174 ms QRS Dur : 092 ms QT Int : 432 ms P-R-T Axes : 076 -29 116 degrees QTc Int : 475 ms Normal sinus rhythm with sinus arrhythmia Minimal voltage criteria for LVH, may be normal variant Possible Anteroseptal infarct , age undetermined Abnormal ECG When compared with ECG of 15-AUG-2021 05:43, (unconfirmed) Premature atrial complexes are no longer Present T wave inversion less evident in Lateral leads Confirmed by Ezio Catalan ([id number]) on 08/16/2021 7:11:17 AM Referred By: REFERRED SELF Confirmed By:Ezio Catalan
[2021-08-16] MEDS: ALBUTEROL HFA 8 GM INHALER INH SCH ×4 (07:17→19:19)
[2021-08-16 07:28] LABS: Hematocrit (blood only) 41.3 % (37-47); Hemoglobin 14.2 g/dL (12.0-16.0); Mean Corpuscular Hemoglobin 30.6 pg (25-34); Mean Corpuscular Hgb Conc 34.4 g/dL (32-36); Mean Platelet Volume 10.5 fL (7.4-10.4); Platelet Count 209 K/uL (130-400); RDW Coefficient of Variation 15.3 % (11.5-14.5); RDW Standard Deviation 49.9 fL (36.4-46.3); Red Blood Count 4.64 M/uL (4.2-5.4); White Blood Count 7.16 K/uL (4.8-10.8)
[2021-08-16 07:47] LABS: BUN Creatinine Ratio 19.6 (10-20); Calcium 9.4 mg/dl (8.5-10.1); Creatinine Clr Calc Pharmacy 22.2 ml/min; Est GFR (African American) 34.9 ml/min; Est GFR (Non-African American) 30.2 ml/min; Magnesium 1.9 mg/dl (1.7-2.4); Potassium 3.8 mmol/L (3.5-5.1)
[2021-08-16] MEDS: CARBIDOPA/LEVODOPA 25/100MG TAB PO SCH ×4 (07:52→22:58)
[2021-08-16] MEDS: PANTOprazole 40 MG TAB PO SCH ×2 (07:52→22:59)
[2021-08-16] MEDS: ASPIRIN 81 MG ECTAB PO SCH (07:52)
[2021-08-16] MEDS: DOCUSATE SODIUM/SENNA 50/8.6MG TAB PO SCH (07:52)
[2021-08-16] MEDS: CHOLECALCIFEROL 1,000 UNITS 25 MCG TAB PO SCH (07:52)
[2021-08-16] MEDS: SERTRALINE HCL 100 MG TABLET PO SCH (07:53)
[2021-08-16] MEDS: LEVOTHYROXINE SODIUM 112 MCG TABLET PO SCH (07:53)
[2021-08-16] MEDS: CEROVITE ADV FORMULA TAB PO SCH (07:53)
[2021-08-16] MEDS: CETIRIZINE HCL 10 MG TABLET PO SCH (07:53)
[2021-08-16] MEDS: FERROUS SULFATE 325 MG TAB PO SCH (07:53)
[2021-08-16] MEDS: ALUMINUM/MAGNESIUM SUSP 30 ML UDC PO SCH ×3 (07:54→22:59)
[2021-08-16] MEDS: POLYETHYLENE (MIRALAX) 17 GM PACK PO SCH (07:58)
--- NOTE | 2021-08-16 09:25 | Electrocardiogram Report ---
Test Reason : Blood Pressure : / mmHG Vent. Rate : 088 BPM Atrial Rate : 088 BPM P-R Int : 132 ms QRS Dur : 088 ms QT Int : 368 ms P-R-T Axes : 045 076 056 degrees QTc Int : 445 ms Poor data quality, interpretation may be adversely affected Normal sinus rhythm Normal ECG When compared with ECG of 15-AUG-2021 11:45, QRS axis Shifted right Borderline criteria for Anteroseptal infarct are no longer Present T wave inversion no longer evident in Lateral leads Confirmed by Alex Kunz ([id number]) on 08/16/2021 9:24:49 AM Referred By: REFERRED SELF Confirmed By:Alex Kunz
[2021-08-16] MEDS: SODIUM CHLORIDE 0.9% 1000ML 1,000 ML IV SCH (09:35)
--- NOTE | 2021-08-16 10:49 | Gastroenterology Progress Note ---
Date of Service August 16, 2021 Assessment & Plan (1) Nausea & vomiting: (2) Gastroparesis: Plan: Patient is an 80 years old female with history of Parkinson's, gastroparesis evaluated today for persistent nausea and vomiting, heartburn symptoms. Recent EGD w botox injection not helpful. Suspect some of her symptoms may be related to her meds (Carbidopa-Levodopa; Sertraline). She is symptomatically improved, tolerating meals well. - Continue Protonix 40mg BID - Scheduled Maalox TID - Scheduled Zofran TID; consider trial of Emend IV if n/v persist - Daily bowel regimen w Miralax and Senna as dosed - Encourage ambulation - Scaleman consult for oral protein supplements; Gastroparesis diet - GI to sign off; pls recall prn Admission and Anticipated Discharge Date Admission Date: August 14, 2021 Supervising Physician Co-Signing Physician Notes I have personally seen and examined the patient with BEN Shoemaker. Her note reflects my exam and findings. I agree with her impression and plan. Some improvement in GI symptoms. Trevon Roque M.D. Subjective Pt had syncope while working w PT yesterday afternoon, suspected due to orthostatic hypotension and bradycardia (HR in 30s). BP meds held. She reports feeling well today, no abd pain, n/v. Ate 1/2 toast and eggs well. BM yesterday Review of Systems Review of Systems: All systems reviewed & are unremarkable except as noted in HPI & below Physical Exam Constitutional: WD/WN, vitals as above well groomed, cooperative and comfortable Eyes: PERRL, conjunctivae normal, anicteric sclerae ENMT: external ear and nose normal, oropharynx normal Respiratory: normal respiratory effort, lungs clear to auscultation Cardiovascular: RRR, no murmur, no edema Gastrointestinal (Abdomen): normal bowel sounds, soft, nontender, no hepatosplenomegaly Skin: no rashes, warm and dry Neurologic: Motor/Sensory: + tremor Psychiatric: A+Ox3, euthymic affect Lymphatic: no lymphedema Results & Data ([facility]) Vital Signs (Past 12 Hours) Vital Signs Temp Pulse Pulse Resp BP BP Pulse Ox 08/16/21 07:56 36.8 C 56 L 18 149/76 H 97 08/16/21 07:17 54 L 20 94 08/16/21 02:28 36.7 C 62 18 100/63 96 08/15/21 23:13 71 08/15/21 23:07 36.6 C 71 18 119/66 98
[2021-08-16] MEDS: ONDANSETRON 4 MG OD TAB PO SCH ×2 (12:57→22:58)
--- NOTE | 2021-08-16 15:06 | Cardiology Progress Note ---
Date of Service August 16, 2021 Assessment & Plan (1) Syncope: (2) Gastroparesis: (3) Nausea & vomiting: (4) Parkinson's disease: (5) Orthostatic hypotension: (6) Neurogenic orthostatic hypotension: Plan: Patient is an 80-year-old female well-known to cardiovascular service. She carries a history as outlined above longstanding ischemic heart disease, cardiomyopathy in past systolic and diastolic heart failure all managed conservatively after long discussions and mutual decision making. She presents now with symptoms of dyspnea as well as recent episodes of abdominal cramping and possible gastroenteritis. Issues with gastroparesis of been well outlined. She did receive a dose of IV furosemide on presentation. Patient in hospital suffered orthostatic syncopal event without arrhythmia on telemetry in part due to meds, diuresis Plan: Resume metoprolol succinate 12.5 mg/day. Would discontinue lisinopril indefinitely. Gradual increase in activity, no further diuretic Admission and Anticipated Discharge Date Admission Date: August 14, 2021 Subjective No furtherPatient seen and examined, chart, medications, telemetry reviewed No dizziness lightheadedness syncope or near syncope. Currently nauseated after eating lunch. No chest pains or discomfort. Physical Exam Constitutional: + thin; no acute distress Eyes: PERRL, conjunctivae normal, anicteric sclerae ENMT: external ear and nose normal, oropharynx normal Neck: trachea midline, no thyromegaly Respiratory: normal respiratory effort, lungs clear to auscultation Cardiovascular: Rate/Rhythm: regular rate and regular rhythm Gastrointestinal (Abdomen): normal bowel sounds, soft, nontender, no hepatosplenomegaly Musculoskeletal: Head/Neck/Chest: + head abnormal to inspection and normocephalic Neurologic: Motor/Sensory: + tremor Results & Data ([facility]) Vital Signs (Past 12 Hours) Vital Signs Temp Pulse Resp BP BP Pulse Ox 08/16/21 14:36 77 94 08/16/21 11:14 36.4 C L 78 18 106/65 96 08/16/21 11:02 54 L 20 97 08/16/21 07:56 36.8 C 56 L 18 149/76 H 97 08/16/21 07:17 54 L 20 94 Laboratory Results Laboratory Results - last 24 hr 08/16/21 08/16/21 06:55 06:55 WBC 7.16 RBC 4.64 Hgb 14.2 Hct 41.3 MCV 89.0 MCH 30.6 MCHC 34.4 RDW Std Deviation 49.9 H RDW Coeff of Ananya 15.3 H Plt Count 209 MPV 10.5 H Sodium 138 Potassium 3.8 Chloride 101 Carbon Dioxide 29 Anion Gap 8 BUN 31 H Creatinine 1.58 H D Est Cr Clr Drug Dosing 22.2 Est GFR ( Amer) 34.9 Est GFR (Non-Af Amer) 30.2 BUN/Creatinine Ratio 19.6 Glucose 88 Calcium 9.4 Magnesium 1.9 (1) Syncope Syncope type: unspecified Qualified Code(s): R55 - Syncope and collapse
--- NOTE | 2021-08-16 17:25 | Hospitalist Progress Note ---
Date of Service August 16, 2021 Assessment & Plan (1) Shortness of breath: (2) Elevated troponin: (3) Nausea: (4) History of coronary artery disease: (5) Hypokalemia: Plan: This is an 80-year-old female who has significant past medical history of CAD with history of PCI x7, history of cardiomyopathy with EF 30 to 35% now resolved, diastolic CHF, HTN, HLD, hypothyroidism, Parkinson's disease, prediabetes, GERD, gastroparesis status post EGD and Botox June 2021, macular degeneration, depression, history of SDH, dyskinesia who presents to ED secondary to shortness of breath x1 to 2 days and nausea/abdominal discomfort Syncope Known CAD with hx of PCI x 7 Chronic HFpef - hx of cardiomyopathy 12/30 now resolved Trop mildly elevated but trend is flat TTE results noted Syncope in setting of recent diuresis then ambulation, in setting of chronic orthostasis Appreciate Cardiology input, discontinue lisinopril, reduce BB, avoid further diuresis Intractable Nausea/vomiting -Chronic gastroparesis -Recent botox injection but with no improvement -Appreciate GI input- place on zofran TID, consider Emend if no improvement -Reglan PRN -improved Hypokalemia replete PRN Orthostatic hypotension -d/c lisinopril, lasix, reduce BB -consider midodrine if BP remains labile HLD continue statin Parkinson disease continue sinemet Depression with anxiety continue zoloft DNR/DNI DVT ppx: SCDS, hx of SDH Dispo: med tele, from home PCP: Mario Admission and Anticipated Discharge Date Admission Date: August 14, 2021 Subjective Feels better. Nausea/vomiting improved Slightly nauseous after lunch but no vomiting Physical Exam Physical Exam: thin, frail, no acute distress Respiratory: breathing comfortably on room air, no wheezing/rhonchi/rales Cardiovascular: regular rate and rhythm, no murmurs/rubs/gallops Gastrointestinal (Abdomen): soft, non tender Musculoskeletal: No edema Neurologic: Awake, alert, hypophonic Results & Data Results & Data ([facility]) Vital Signs (Past 12 Hours) Vital Signs Temp Pulse Resp BP BP Pulse Ox 08/16/21 15:37 36.7 C 62 18 115/67 95 08/16/21 14:36 77 94 08/16/21 11:14 36.4 C L 78 18 106/65 96 08/16/21 11:02 54 L 20 97 08/16/21 07:56 36.8 C 56 L 18 149/76 H 97 08/16/21 07:17 54 L 20 94 Laboratory Results Short CBC 08/16/21 Range/Units 06:55 WBC 7.16 (4.8-10.8) K/uL Hgb 14.2 (12.0-16.0) g/dL Hct 41.3 (37-47) % Plt Count 209 (130-400) K/uL BMP 08/16/21 06:55 Sodium 138 Potassium 3.8 Chloride 101 Carbon Dioxide 29 BUN 31 H Creatinine 1.58 H D Glucose 88 Calcium 9.4 Medications Administered Current Inpatient Medications Acetaminophen (Acetaminophen 325 Mg Tab) 650 mg PO Q4H PRN PRN Reason: Pain or Fever Stop: 09/13/21 20:34 Last Admin: 08/15/21 21:30 Dose: 325 mg Documented by: Al Hydrox/Mg Hydrox/Simethicone (Aluminum/Magnesium Susp 30 Ml Udc) 15 ml PO TID [facility] Stop: 09/14/21 13:59 Last Admin: 08/16/21 12:57 Dose: 15 ml Documented by: Albuterol (Albuterol Hfa 8 Gm Inhaler) 2 puffs INH QIDR [facility] Stop: 09/14/21 06:59 Last Admin: 08/16/21 14:35 Dose: 2 puffs Documented by: Aspirin (Aspirin 81 Mg Ectab) 81 mg PO QAM [facility] Stop: 09/14/21 08:59 Last Admin: 08/16/21 07:52 Dose: 81 mg Documented by: Atorvastatin Calcium (Atorvastatin 40 Mg Tab) 40 mg PO HS [facility] Stop: 09/13/21 20:59 Last Admin: 08/15/21 20:02 Dose: 40 mg Documented by: Carbidopa/Levodopa (Carbidopa/Levodopa 50/200mg Ext Rel Tab) 1 tab PO HS [facility] Stop: 09/13/21 20:59 Last Admin: 08/15/21 20:02 Dose: 1 tab Documented by: Carbidopa/Levodopa (Carbidopa/Levodopa 25/100mg Tab) 1.5 tab PO QID [facility] Stop: 09/13/21 20:34 Last Admin: 08/16/21 17:18 Dose: 1.5 tab Documented by: Cetirizine HCl (Cetirizine Hcl 10 Mg Tablet) 10 mg PO QAM [facility] Stop: 09/14/21 08:59 Last Admin: 08/16/21 07:53 Dose: 10 mg Documented by: Cyanocobalamin (Cyanocobalamin (B-12) 500 Mcg Tablet) 1,000 mcg PO QPM [facility] Stop: 09/13/21 20:59 Last Admin: 08/15/21 20:03 Dose: 1,000 mcg Documented by: Ferrous Sulfate (Ferrous Sulfate 325 Mg Tab) 325 mg PO DAILY [facility] Stop: 09/14/21 08:59 Last Admin: 08/16/21 07:53 Dose: 325 mg Documented by: Sodium Chloride (Nss 1000ml) 1,000 mls @ 80 mls/hr IV .[id number] [facility] Stop: 08/17/21 08:29 Last Admin: 08/16/21 09:35 Dose: 80 mls/hr Documented by: Levothyroxine Sodium (Levothyroxine Sodium 112 Mcg Tablet) 112 mcg PO [facility] Stop: 09/14/21 08:59 Last Admin: 08/16/21 07:53 Dose: 112 mcg Documented by: Magnesium Hydroxide (Magnesium Hydroxide Susp 30 Ml Udc) 30 ml PO Q12H PRN PRN Reason: Constipation Stop: 09/13/21 20:34 Melatonin (Melatonin 3 Mg Tab) 4.5 mg PO HS [facility] Stop: 09/13/21 20:59 Last Admin: 08/15/21 20:03 Dose: 4.5 mg Documented by: Menthol (Cough Drop (Sugar Free) Jeremiah 24 Jeremiah/1 Box) 1 jeremiah BUCCAL PRN PRN PRN Reason: Sore Throat Stop: 09/14/21 05:50 Metoclopramide HCl (Metoclopramide Hcl Inj 5 Mg/Ml 2 Ml Vial) 10 mg IV Q6H PRN PRN Reason: Nausea Stop: 09/14/21 11:52 Last Admin: 08/15/21 12:21 Dose: 10 mg Documented by: Metoprolol Succinate (Metoprolol Succ 25mg Ext Rel Tab) [facility] [place]: 09/15/21 08:59 Multivitamins/Minerals (Cerovite Adv Formula Tab) [facility] Stop: 09/14/21 08:59 Last Admin: 08/16/21 07:53 Dose: 1 tab Documented by: Ondansetron HCl (Ondansetron 4 Mg Od Tab) 4 mg PO Q8 [facility] Stop: 09/15/21 13:59 Last Admin: 08/16/21 12:57 Dose: 4 mg Documented by: Pantoprazole Sodium (Pantoprazole 40 Mg Tab) 40 mg PO BID [facility] Stop: 09/14/21 20:59 Last Admin: 08/16/21 07:52 Dose: 40 mg Documented by: Polyethylene Glycol (Polyethylene (Miralax) 17 Gm Pack) 17 gm PO DAILY PRN PRN Reason: Constipation Stop: 09/13/21 20:34 Polyethylene Glycol (Polyethylene (Miralax) 17 Gm Pack) 17 gm PO DAILY [facility] Stop: 09/14/21 08:59 Last Admin: 08/16/21 07:58 Dose: Not Given Documented by: Senna/Docusate Sodium (Docusate Sodium/Senna 50/8.6mg Tab) [facility] Stop: 09/14/21 08:59 Last Admin: 08/16/21 07:52 Dose: 2 tab Documented by: Sertraline HCl (Sertraline Hcl 100 Mg Tablet) 100 [facility] Stop: 09/14/21 08:59 Last Admin: 08/16/21 07:53 Dose: 100 mg Documented by: Vitamin D (Cholecalciferol 1,000 Units 25 Mcg Tab) 1,000 units PO QAM [facility] Stop: 09/14/21 08:59 Last Admin: 08/16/21 07:52 Dose: 1,000 units Documented by:
[2021-08-16] MEDS: MELATONIN 3 MG TAB PO SCH (22:57)
[2021-08-16] MEDS: CYANOCOBALAMIN (B-12) 500 MCG TABLET PO SCH (22:57)
[2021-08-16] MEDS: CARBIDOPA/LEVODOPA 50/200MG EXT REL TAB PO SCH (22:58)
[2021-08-16] MEDS: ACETAMINOPHEN 325 MG TAB PO PRN (22:59)
[2021-08-16] MEDS: ATORVASTATIN 40 MG TAB PO SCH (22:59)
[2021-08-17] MEDS: SODIUM CHLORIDE 0.9% 1000ML 1,000 ML IV SCH ×2 (00:32→12:56)
[2021-08-17] MEDS: ONDANSETRON 4 MG OD TAB PO SCH ×3 (05:51→21:24)
[2021-08-17] MEDS: ACETAMINOPHEN 325 MG TAB PO PRN ×3 (05:57→20:33)
[2021-08-17 06:42] LABS: Hematocrit (blood only) 37.2 % (37-47); Hemoglobin 12.3 g/dL (12.0-16.0); Mean Corpuscular Hemoglobin 29.8 pg (25-34); Mean Corpuscular Hgb Conc 33.1 g/dL (32-36); Mean Corpuscular Volume 90.1 fL (80-100); Mean Platelet Volume 10.4 fL (7.4-10.4); Platelet Count 178 K/uL (130-400); RDW Coefficient of Variation 15.6 % (11.5-14.5); Red Blood Count 4.13 M/uL (4.2-5.4); White Blood Count 6.73 K/uL (4.8-10.8)
[2021-08-17] MEDS: ALBUTEROL HFA 8 GM INHALER INH SCH ×4 (07:02→19:33)
[2021-08-17 07:04] LABS: BUN Creatinine Ratio 23.8 (10-20); Calcium 8.7 mg/dl (8.5-10.1); Creatinine Clr Calc Pharmacy 19.6 ml/min; Est GFR (African American) 29.7 ml/min; Est GFR (Non-African American) 25.6 ml/min; Magnesium 1.9 mg/dl (1.7-2.4); Phosphorus 3.2 mg/dl (2.5-4.9)
[2021-08-17] MEDS: METOPROLOL SUCC 25MG EXT REL TAB PO SCH (08:04)
[2021-08-17] MEDS: CEROVITE ADV FORMULA TAB PO SCH (08:09)
[2021-08-17] MEDS: SERTRALINE HCL 100 MG TABLET PO SCH (08:09)
[2021-08-17] MEDS: FERROUS SULFATE 325 MG TAB PO SCH (08:09)
[2021-08-17] MEDS: CARBIDOPA/LEVODOPA 25/100MG TAB PO SCH ×4 (08:09→20:35)
[2021-08-17] MEDS: PANTOprazole 40 MG TAB PO SCH ×2 (08:09→20:37)
[2021-08-17] MEDS: CHOLECALCIFEROL 1,000 UNITS 25 MCG TAB PO SCH (08:10)
[2021-08-17] MEDS: CETIRIZINE HCL 10 MG TABLET PO SCH (08:11)
[2021-08-17] MEDS: LEVOTHYROXINE SODIUM 112 MCG TABLET PO SCH (08:11)
[2021-08-17] MEDS: ASPIRIN 81 MG ECTAB PO SCH (08:11)
[2021-08-17] MEDS: DOCUSATE SODIUM/SENNA 50/8.6MG TAB PO SCH (08:11)
[2021-08-17] MEDS: ALUMINUM/MAGNESIUM SUSP 30 ML UDC PO SCH ×3 (08:12→20:34)
[2021-08-17] MEDS: POLYETHYLENE (MIRALAX) 17 GM PACK PO SCH (08:16)
--- NOTE | 2021-08-17 10:19 | Ultrasound Report ---
RENAL ULTRASOUND CLINICAL HISTORY: Acute kidney injury. COMPARISON STUDY: CT of the abdomen and pelvis July 23, 2019. TECHNIQUE: Sonography of the kidneys and the urinary bladder was performed. FINDINGS: The right kidney measures 8.8 x 3.3 x 4.5 cm and the left measures 9.7 x 4.4 x 5.8 cm. Ther e is increased renal echogenicity. No hydronephrosis is present. Moderate right and mild left renal a trophy is present. Both ureteral jets were identified. There are suspected small left-sided parapelvi c cysts. IMPRESSION: 1. No hydronephrosis. 2. Moderate right and mild left renal atrophy. Increased renal echogenicity consistent with medical r enal disease. ACT 112: Negative or not required by law. Electronically signed by: Gabriel Irving M.D. 08/17/2021 10:17 AM
--- NOTE | 2021-08-17 11:54 | Cardiology Progress Note ---
Date of Service August 17, 2021 Assessment & Plan (1) Syncope: (2) Neurogenic orthostatic hypotension: (3) CAD (coronary artery disease): Plan: Patient seen and examined, chart, medications telemetry reviewed. No further dizziness lightness syncope or near syncope. No arrhythmias on telemetry. Event appears to be precipitated as before multiple issues including chronic known orthostasis, parkinsonism, diuretic usage. Lisinopril discontinued Continue low-dose beta-paul No other changes made patient stable from cardiac standpoint Admission and Anticipated Discharge Date Admission Date: August 14, 2021 Subjective Patient seen and examined, chart, medications, telemetry reviewed patient looks and feels better today. No arrhythmias overnight no further dizziness lightheadedness or syncope. Review of Systems Review of Systems: All systems reviewed & are unremarkable except as noted in Subjective Physical Exam Constitutional: WD/WN, vitals as above no acute distress Eyes: PERRL, conjunctivae normal, anicteric sclerae ENMT: external ear and nose normal, oropharynx normal Neck: trachea midline, no thyromegaly Respiratory: normal respiratory effort, lungs clear to auscultation Cardiovascular: Rate/Rhythm: regular rate and regular rhythm Heart Sounds: normal S1, normal S2 and + murmur (Grade 1/6 systolic murmur, no diet) Vessels: no JVD Extremities: no edema Gastrointestinal (Abdomen): normal bowel sounds, soft, nontender, no hepatosplenomegaly Skin: no rashes, warm and dry Neurologic: Very coarse parkinsonian tremor Results & Data ([facility]) Vital Signs (Past 12 Hours) Vital Signs Temp Pulse Pulse Pulse Resp BP BP 08/17/21 11:08 81 16 08/17/21 10:30 36.6 C 66 17 124/68 08/17/21 07:47 56 L 08/17/21 07:40 36.4 C L 58 L 17 122/64 08/17/21 07:02 78 18 08/17/21 06:53 36.6 C 58 L 18 149/91 H 08/17/21 02:51 36.4 C L 62 18 126/67 Pulse Ox 08/17/21 11:08 96 08/17/21 10:30 97 08/17/21 07:47 08/17/21 07:40 96 08/17/21 07:02 94 08/17/21 06:53 97 08/17/21 02:51 96 Laboratory Results Laboratory Results - last 24 hr 08/17/21 08/17/21 06:18 06:18 WBC 6.73 RBC 4.13 L Hgb 12.3 Hct 37.2 MCV 90.1 MCH 29.8 MCHC 33.1 RDW Std Deviation 51.0 H RDW Coeff of Ananya 15.6 H Plt Count 178 MPV 10.4 Sodium 137 Potassium 4.0 Chloride 103 Carbon Dioxide 31 Anion Gap 3 BUN 43 H Creatinine 1.81 H Est Cr Clr Drug Dosing 19.6 Est GFR ( Amer) 29.7 Est GFR (Non-Af Amer) 25.6 BUN/Creatinine Ratio 23.8 H Glucose 85 Calcium 8.7 Phosphorus 3.2 Magnesium 1.9 (1) Syncope Syncope type: unspecified Qualified Code(s): R55 - Syncope and collapse
--- NOTE | 2021-08-17 12:21 | Hospitalist Progress Note ---
Date of Service August 17, 2021 Assessment & Plan (1) Shortness of breath: (2) Elevated troponin: (3) Nausea: (4) History of coronary artery disease: (5) Hypokalemia: Plan: This is an 80-year-old female who has significant past medical history of CAD with history of PCI x7, history of cardiomyopathy with EF 30 to 35% now resolved, diastolic CHF, HTN, HLD, hypothyroidism, Parkinson's disease, prediabetes, GERD, gastroparesis status post EGD and Botox June 2021, macular degeneration, depression, history of SDH, dyskinesia who presents to ED secondary to shortness of breath x1 to 2 days and nausea/abdominal discomfort Syncope Known CAD with hx of PCI x 7 Chronic HFpef - hx of cardiomyopathy 12/30 now resolved Trop mildly elevated but trend is flat TTE results noted Syncope in setting of recent diuresis then ambulation, in setting of chronic orthostasis Appreciate Cardiology input, discontinue lisinopril, reduce BB, avoid further diuresis Intractable Nausea/vomiting, resolved -Chronic gastroparesis -Recent botox injection but with no improvement -Appreciate GI input- place on zofran TID, consider Emend if no improvement -Reglan PRN -improved BINH on CKD -renal ultraound shows mild-mod cortical thinning bilateral kidneys -check urine lytes -continue NSS at 80cc/hr -Nephrology consulted Hypokalemia replete PRN Orthostatic hypotension -d/c lisinopril, lasix, reduce BB -consider midodrine if BP remains labile HLD continue statin Parkinson disease continue sinemet Depression with anxiety continue zoloft DNR/DNI DVT ppx: SCDS, hx of SDH Dispo: med tele, from home PCP: Mario Hold off on discharge until renal function stabilizes Admission and Anticipated Discharge Date Admission Date: August 14, 2021 Subjective feels well No further nausea/vomiting Denies urinary discomfort or difficulty urinating Physical Exam Physical Exam: appears stated age, no acute distress Respiratory: breathing comfortably on room air, no wheezing/rhonchi/rales Cardiovascular: regular rate and rhythm, no murmurs/rubs/gallops Gastrointestinal (Abdomen): soft, non tender Musculoskeletal: no edema Neurologic: awake, alert, spontaneously moving extremities, resting tremors Results & Data Results & Data ([facility]) Vital Signs (Past 12 Hours) Vital Signs Temp Pulse Pulse Pulse Resp BP BP 08/17/21 11:08 81 16 08/17/21 10:30 36.6 C 66 17 124/68 08/17/21 07:47 56 L 08/17/21 07:40 36.4 C L 58 L 17 122/64 08/17/21 07:02 78 18 08/17/21 06:53 36.6 C 58 L 18 149/91 H 08/17/21 02:51 36.4 C L 62 18 126/67 Pulse Ox 08/17/21 11:08 96 08/17/21 10:30 97 08/17/21 07:47 08/17/21 07:40 96 08/17/21 07:02 94 08/17/21 06:53 97 08/17/21 02:51 96 Laboratory Results Short CBC 08/17/21 Range/Units 06:18 WBC 6.73 (4.8-10.8) K/uL Hgb 12.3 (12.0-16.0) g/dL Hct 37.2 (37-47) % Plt Count 178 (130-400) K/uL BMP 08/17/21 06:18 Sodium 137 Potassium 4.0 Chloride 103 Carbon Dioxide 31 BUN 43 H Creatinine 1.81 H Glucose 85 Calcium 8.7 Medications Administered Current Inpatient Medications Acetaminophen (Acetaminophen 325 Mg Tab) 650 mg PO Q4H PRN PRN Reason: Pain or Fever Stop: 09/13/21 20:34 Last Admin: 08/17/21 05:57 Dose: 650 mg Documented by: Al Hydrox/Mg Hydrox/Simethicone (Aluminum/Magnesium Susp 30 Ml Udc) 15 ml PO TID [facility] Stop: 09/14/21 13:59 Last Admin: 08/17/21 08:12 Dose: 15 ml Documented by: Albuterol (Albuterol Hfa 8 Gm Inhaler) 2 puffs INH QIDR [facility] Stop: 09/14/21 06:59 Last Admin: 08/17/21 11:08 Dose: 2 puffs Documented by: Aspirin (Aspirin 81 Mg Ectab) 81 mg PO QAM [facility] Stop: 09/14/21 08:59 Last Admin: 08/17/21 08:11 Dose: 81 mg Documented by: Atorvastatin Calcium (Atorvastatin 40 Mg Tab) 40 mg PO HS [facility] Stop: 09/13/21 20:59 Last Admin: 08/16/21 22:59 Dose: 40 mg Documented by: Carbidopa/Levodopa (Carbidopa/Levodopa 50/200mg Ext Rel Tab) 1 tab PO HS [facility] Stop: 09/13/21 20:59 Last Admin: 08/16/21 22:58 Dose: 1 tab Documented by: Carbidopa/Levodopa (Carbidopa/Levodopa 25/100mg Tab) 1.5 tab PO QID [facility] Stop: 09/13/21 20:34 Last Admin: 08/17/21 08:09 Dose: 1.5 tab Documented by: Cetirizine HCl (Cetirizine Hcl 10 Mg Tablet) 10 mg PO QAM [facility] Stop: 09/14/21 08:59 Last Admin: 08/17/21 08:11 Dose: 10 mg Documented by: Cyanocobalamin (Cyanocobalamin (B-12) 500 Mcg Tablet) 1,000 mcg PO QPM [facility] Stop: 09/13/21 20:59 Last Admin: 08/16/21 22:57 Dose: 1,000 mcg Documented by: Ferrous Sulfate (Ferrous Sulfate 325 Mg Tab) 325 mg PO DAILY [facility] Stop: 09/14/21 08:59 Last Admin: 08/17/21 08:09 Dose: 325 mg Documented by: Sodium Chloride (Nss 1000ml) 1,000 mls @ 80 mls/hr IV .[id number] [facility] Stop: 08/18/21 08:29 Last Admin: 08/17/21 00:32 Dose: 80 mls/hr Documented by: Levothyroxine Sodium (Levothyroxine Sodium 112 Mcg Tablet) [facility] Stop: 09/14/21 08:59 Last Admin: 08/17/21 08:11 Dose: 112 mcg Documented by: Magnesium Hydroxide (Magnesium Hydroxide Susp 30 Ml Udc) 30 ml PO Q12H PRN PRN Reason: Constipation Stop: 09/13/21 20:34 Melatonin (Melatonin 3 Mg Tab) 4.5 mg PO [facility] Stop: 09/13/21 20:59 Last Admin: 08/16/21 22:57 Dose: 4.5 mg Documented by: Menthol (Cough Drop (Sugar Free) Jeremiah 24 Jeremiah/1 Box) 1 jeremiah BUCCAL PRN PRN PRN Reason: Sore Throat Stop: 09/14/21 05:50 Metoclopramide HCl (Metoclopramide Hcl Inj 5 Mg/Ml 2 Ml Vial) 10 mg IV Q6H PRN PRN Reason: Nausea Stop: 09/14/21 11:52 Last Admin: 08/15/21 12:21 Dose: 10 mg Documented by: Metoprolol Succinate (Metoprolol Succ 25mg Ext Rel Tab) 12.5 mg PO QAM [facility] Stop: 09/15/21 08:59 Last Admin: 08/17/21 08:04 Dose: Not Given Documented by: Multivitamins/Minerals (Cerovite Adv Formula Tab) 1 tab PO QAM [facility] Stop: 09/14/21 08:59 Last Admin: 08/17/21 08:09 Dose: 1 tab Documented by: Ondansetron HCl (Ondansetron 4 Mg Od Tab) 4 mg PO Q8 [facility] Stop: 09/15/21 13:59 Last Admin: 08/17/21 05:51 Dose: 4 mg Documented by: Pantoprazole Sodium (Pantoprazole 40 Mg Tab) 40 mg PO BID [facility] Stop: 09/14/21 20:59 Last Admin: 08/17/21 08:09 Dose: 40 mg Documented by: Polyethylene Glycol (Polyethylene (Miralax) 17 Gm Pack) 17 gm PO DAILY PRN PRN Reason: Constipation Stop: 09/13/21 20:34 Polyethylene Glycol (Polyethylene (Miralax) 17 Gm Pack) 17 gm PO DAILY [facility] Stop: 09/14/21 08:59 Last Admin: 08/17/21 08:16 Dose: Not Given Documented by: Senna/Docusate Sodium (Docusate Sodium/Senna 50/8.6mg Tab) 2 tab PO QAM [facility] Stop: 09/14/21 08:59 Last Admin: 08/17/21 08:11 Dose: 2 tab Documented by: Sertraline HCl (Sertraline Hcl 100 Mg Tablet) 100 mg PO QAM [facility] Stop: 09/14/21 08:59 Last Admin: 08/17/21 08:09 Dose: 100 mg Documented by: Vitamin D (Cholecalciferol 1,000 Units 25 Mcg Tab) 1,000 units PO QAM [facility] Stop: 09/14/21 08:59 Last Admin: 08/17/21 08:10 Dose: 1,000 units Documented by:
--- NOTE | 2021-08-17 14:44 | Consultation Report ---
NEPHROLOGY CONSULTATION NOTE DATE OF SERVICE: 08/17/2021 REASON FOR CONSULTATION: Acute renal failure. HISTORY OF PRESENT ILLNESS: The patient is an 80-year-old female who was admitted 3 days ago when she presented to the hospital because of shortness of breath for a few days. She was felt to be in congestive heart failure and had received some IV Lasix, but then she also developed orthostatic hypotension with syncope, with bradycardia. Her creatinine started to rise after the bradycardic orthostatic episodes. In fact, her creatinine was normal up until 2 days ago when it started rising to 1.58 yesterday and today was 1.81. She is no longer getting Lasix or lisinopril. She appears to be fairly stable at this time with normal vital signs. She is making urine. She is also getting IV fluid at this point at 80 mL per hour. The patient is a poor historian. She also had nausea, vomiting, which was related with gastroparesis and has been seen by gastroenterology. ALLERGIES: ALLERGY LIST WAS REVIEWED IN DETAIL. MEDICATIONS: Home medication list was reviewed in detail and is as per the H and P and the medicine reconciliation list. She was on lisinopril 5 daily and Lasix 20 daily as an outpatient. PAST MEDICAL AND SURGICAL HISTORY: Includes anxiety, coronary artery disease, status post stenting, chronic back pain, chronic kidney disease with a baseline creatinine in the low 1s, dysphagia, esophageal spasm, gastroparesis, hyperlipidemia, hypertension, hypothyroidism, Parkinson's disease, ankle surgery, appendicectomy, cardiac catheterization, cholecystectomy, colonoscopy, coronary artery stenting, hysterectomy, thumb surgery, angioplasty. FAMILY HISTORY: Negative for renal disease or dialysis. SOCIAL HISTORY: She is and lives with her spouse. She has very extensive tremor limiting her functional status. REVIEW OF SYSTEMS: Unable to obtain as she really did not talk to me and was unable to give me any relevant history. PHYSICAL EXAMINATION: GENERAL: Elderly white female who appears to be awake and alert, but not able to test her orientation. She did not really answer any of the questions. She has very extensive tremor, which seems to be affecting her a lot. VITAL SIGNS: Blood pressure 124/68, pulse rate 81, temperature 36.6, and 96% on room air. HEENT: Mucous membrane is moist. NECK: Supple. No jugular venous distention. CHEST: Bilaterally decreased breath sound, very poor inspiratory effort. CARDIOVASCULAR: S1 and S2 regular. Soft systolic murmur heard. ABDOMEN: Soft, nontender. EXTREMITIES: Show no edema. LABORATORY TEST: Creatinine was 0.97 two days ago, then went to 1.58 and this morning was even higher. Urine test did not show any blood or protein. Creatinine this morning is 1.81, sodium 137, potassium 4.0, BUN 43. ASSESSMENT AND PLAN: An 80-year-old female with preexisting cardiac disease, admitted with shortness of breath for which she received some IV diuretics in the beginning, but then she developed orthostatic hypotension with bradycardia and had a syncopal event. After that, she developed acute renal failure for which I have been consulted. Acute renal failure: This is related with the transient hypotension, syncope and bradycardia that happened and the timeline of the creatinine rise corresponds perfectly with that. Unfortunately, at this point, it is hard to tell how much kidney damage was done during that episode. As of now, creatinine is still rising. I expect the creatinine to stabilize in the next day or two. I would not discharge the patient unless we at least see that the creatinine is stable. She does not need to have a normal creatinine to be discharged, but at least it needs to stop rising. No further workup is needed. I will continue IV fluid until tomorrow morning and then stop regardless of the creatinine. I will continue to hold the lisinopril and Lasix for the time being. If the creatinine continues to go up even higher, we can consider doing a renal ultrasound, but it is very low likelihood that she has obstructive uropathy. Thank you very much for the consult. Job ID: [id number] [facility]ENTERJamie
--- NOTE | 2021-08-17 18:05 | Hospitalist Progress Note ---
Date of Service August 17, 2021 Assessment & Plan (1) Shortness of breath: (2) Elevated troponin: (3) Nausea: (4) History of coronary artery disease: (5) Hypokalemia: Plan: This is an 80-year-old female who has significant past medical history of CAD with history of PCI x7, history of cardiomyopathy with EF 30 to 35% now resolved, diastolic CHF, HTN, HLD, hypothyroidism, Parkinson's disease, prediabetes, GERD, gastroparesis status post EGD and Botox June 2021, macular degeneration, depression, history of SDH, dyskinesia who presents to ED secondary to shortness of breath x1 to 2 days and nausea/abdominal discomfort Syncope Known CAD with hx of PCI x 7 Chronic HFpef - hx of cardiomyopathy 12/30 now resolved Trop mildly elevated but trend is flat TTE results noted Syncope in setting of hypotension from recent diuresis then ambulation, in setting of chronic orthostasis Appreciate Cardiology input, discontinue lisinopril, reduce BB, avoid further diuresis Intractable Nausea/vomiting, resolved -Chronic gastroparesis -Recent botox injection but with no improvement -Appreciate GI input- place on zofran TID, consider Emend if no improvement -Reglan PRN -improved BINH on CKD -renal ultraound shows mild-mod cortical thinning bilateral kidneys - urine lytes pnding -continue NSS at 80cc/hr -Nephrology consulted, appreciate input Hypokalemia replete PRN Orthostatic hypotension -d/c lisinopril, lasix, reduce BB -consider midodrine if BP remains labile HLD continue statin Parkinson disease continue sinemet Depression with anxiety continue zoloft DNR/DNI DVT ppx: SCDS, hx of SDH Dispo: med tele, from home PCP: Mario Hold off on discharge until renal function stabilizes Admission and Anticipated Discharge Date Admission Date: August 14, 2021 Subjective Feels better No nausea/vomitting today Remains on IVF Family asking when she can be released Physical Exam Physical Exam: Appears better today, frail and elderly but not nauseous, sitting in chair Respiratory: Breathing comfortably on room air, no wheezing/rhonchi/rales Cardiovascular: regular rate and rhythm, no murmurs/rubs/gallops Gastrointestinal (Abdomen): soft, non tender Musculoskeletal: no edema Neurologic: awake, alert, +resting tremor Results & Data Results & Data ([facility]) Vital Signs (Past 12 Hours) Vital Signs Temp Pulse Pulse Pulse Resp BP BP 08/17/21 15:59 70 08/17/21 15:23 36.6 C 68 18 107/61 08/17/21 15:17 82 19 08/17/21 11:08 81 16 08/17/21 10:30 36.6 C 66 17 124/68 08/17/21 07:47 56 L 08/17/21 07:40 36.4 C L 58 L 17 122/64 08/17/21 07:02 78 18 08/17/21 06:53 36.6 C 58 L 18 149/91 H Pulse Ox 08/17/21 15:59 08/17/21 15:23 95 08/17/21 15:17 91 08/17/21 11:08 96 08/17/21 10:30 97 08/17/21 07:47 08/17/21 07:40 96 08/17/21 07:02 94 08/17/21 06:53 97 Laboratory Results Short CBC 08/17/21 Range/Units 06:18 WBC 6.73 (4.8-10.8) K/uL Hgb 12.3 (12.0-16.0) g/dL Hct 37.2 (37-47) % Plt Count 178 (130-400) K/uL BMP 08/17/21 06:18 Sodium 137 Potassium 4.0 Chloride 103 Carbon Dioxide 31 BUN 43 H Creatinine 1.81 H Glucose 85 Calcium 8.7 Medications Administered Current Inpatient Medications Acetaminophen (Acetaminophen 325 Mg Tab) 650 mg PO Q4H PRN PRN Reason: Pain or Fever Stop: 09/13/21 20:34 Last Admin: 08/17/21 14:06 Dose: 325 mg Documented by: Al Hydrox/Mg Hydrox/Simethicone (Aluminum/Magnesium Susp 30 Ml Udc) 15 ml PO TID [facility] Stop: 09/14/21 13:59 Last Admin: 08/17/21 14:03 Dose: 15 ml Documented by: Albuterol (Albuterol Hfa 8 Gm Inhaler) 2 puffs INH QIDR [facility] Stop: 09/14/21 06:59 Last Admin: 08/17/21 15:15 Dose: 2 puffs Documented by: Aspirin (Aspirin 81 Mg Ectab) 81 mg PO QAM [facility] Stop: 09/14/21 08:59 Last Admin: 08/17/21 08:11 Dose: 81 mg Documented by: Atorvastatin Calcium (Atorvastatin 40 Mg Tab) 40 mg PO HS [facility] Stop: 09/13/21 20:59 Last Admin: 08/16/21 22:59 Dose: 40 mg Documented by: Carbidopa/Levodopa (Carbidopa/Levodopa 50/200mg Ext Rel Tab) 1 tab PO HS [facility] Stop: 09/13/21 20:59 Last Admin: 08/16/21 22:58 Dose: 1 tab Documented by: Carbidopa/Levodopa (Carbidopa/Levodopa 25/100mg Tab) 1.5 tab PO QID [facility] Stop: 09/13/21 20:34 Last Admin: 08/17/21 16:56 Dose: 1.5 tab Documented by: Cetirizine HCl (Cetirizine Hcl 10 Mg Tablet) 10 mg PO QAM [facility] Stop: 09/14/21 08:59 Last Admin: 08/17/21 08:11 Dose: 10 mg Documented by: Cyanocobalamin (Cyanocobalamin (B-12) 500 Mcg Tablet) 1,000 mcg PO QPM [facility] Stop: 09/13/21 20:59 Last Admin: 08/16/21 22:57 Dose: 1,000 mcg Documented by: Ferrous Sulfate (Ferrous Sulfate 325 Mg Tab) 325 mg PO DAILY [facility] Stop: 09/14/21 08:59 Last Admin: 08/17/21 08:09 Dose: 325 mg Documented by: Sodium Chloride (Nss 1000ml) 1,000 mls @ 80 mls/hr IV .[id number] [facility] Stop: 08/18/21 08:29 Last Admin: 08/17/21 12:56 Dose: 80 mls/hr Documented by: Levothyroxine Sodium (Levothyroxine Sodium 112 Mcg Tablet) 112 mcg PO QAM [facility] Stop: 09/14/21 08:59 Last Admin: 08/17/21 08:11 Dose: 112 mcg Documented by: Magnesium Hydroxide (Magnesium Hydroxide Susp 30 Ml Udc) 30 ml PO Q12H PRN PRN Reason: Constipation Stop: 09/13/21 20:34 Melatonin (Melatonin 3 Mg Tab) 4.5 mg PO HS [facility] Stop: 09/13/21 20:59 Last Admin: 08/16/21 22:57 Dose: 4.5 mg Documented by: Menthol (Cough Drop (Sugar Free) Jeremiah 24 Jeremiah/1 Box) 1 jeremiah BUCCAL PRN PRN PRN Reason: Sore Throat Stop: 09/14/21 05:50 Metoclopramide HCl (Metoclopramide Hcl Inj 5 Mg/Ml 2 Ml Vial) 10 mg IV Q6H PRN PRN Reason: Nausea Stop: 09/14/21 11:52 Last Admin: 08/15/21 12:21 Dose: 10 mg Documented by: Metoprolol Succinate (Metoprolol Succ 25mg Ext Rel Tab) 12.5 mg PO QAM [facility] Stop: 09/15/21 08:59 Last Admin: 08/17/21 08:04 Dose: Not Given Documented by: Multivitamins/Minerals (Cerovite Adv Formula Tab) 1 tab PO QAM [facility] Stop: 09/14/21 08:59 Last Admin: 08/17/21 08:09 Dose: 1 tab Documented by: Ondansetron HCl (Ondansetron 4 Mg Od Tab) 4 mg PO Q8 [facility] Stop: 09/15/21 13:59 Last Admin: 08/17/21 14:02 Dose: 4 mg Documented by: Pantoprazole Sodium (Pantoprazole 40 Mg Tab) 40 mg PO BID [facility] Stop: 09/14/21 20:59 Last Admin: 08/17/21 08:09 Dose: 40 mg Documented by: Polyethylene Glycol (Polyethylene (Miralax) 17 Gm Pack) 17 gm PO DAILY PRN PRN Reason: Constipation Stop: 09/13/21 20:34 Polyethylene Glycol (Polyethylene (Miralax) 17 Gm Pack) 17 gm PO DAILY [facility] Stop: 09/14/21 08:59 Last Admin: 08/17/21 08:16 Dose: Not Given Documented by: Senna/Docusate Sodium (Docusate Sodium/Senna 50/8.6mg Tab) 2 tab PO QAM [facility] Stop: 09/14/21 08:59 Last Admin: 08/17/21 08:11 Dose: 2 tab Documented by: Sertraline HCl (Sertraline Hcl 100 Mg Tablet) 100 mg PO QAM [facility] Stop: 09/14/21 08:59 Last Admin: 08/17/21 08:09 Dose: 100 mg Documented by: Vitamin D (Cholecalciferol 1,000 Units 25 Mcg Tab) 1,000 units PO QAM [facility] Stop: 09/14/21 08:59 Last Admin: 08/17/21 08:10 Dose: 1,000 units Documented by:
[2021-08-17 19:36] LABS: Creatinine Urine Random 91.1 mg/dl
[2021-08-17] MEDS: ATORVASTATIN 40 MG TAB PO SCH (20:35)
[2021-08-17] MEDS: MELATONIN 3 MG TAB PO SCH (20:36)
[2021-08-17] MEDS: CYANOCOBALAMIN (B-12) 500 MCG TABLET PO SCH (20:36)
[2021-08-17] MEDS: CARBIDOPA/LEVODOPA 50/200MG EXT REL TAB PO SCH (20:39)
[2021-08-18] MEDS: SODIUM CHLORIDE 0.9% 1000ML 1,000 ML IV SCH (03:27)
[2021-08-18] MEDS: ONDANSETRON 4 MG OD TAB PO SCH ×3 (06:15→21:48)
[2021-08-18 07:06] LABS: Hematocrit (blood only) 34.7 % (37-47); Hemoglobin 11.3 g/dL (12.0-16.0); Mean Corpuscular Hemoglobin 29.4 pg (25-34); Mean Corpuscular Hgb Conc 32.6 g/dL (32-36); Mean Corpuscular Volume 90.4 fL (80-100); Mean Platelet Volume 10.5 fL (7.4-10.4); Platelet Count 167 K/uL (130-400); RDW Coefficient of Variation 15.9 % (11.5-14.5); Red Blood Count 3.84 M/uL (4.2-5.4); White Blood Count 7.02 K/uL (4.8-10.8)
[2021-08-18] MEDS: ALBUTEROL HFA 8 GM INHALER INH SCH ×5 (07:11→19:11)
[2021-08-18] MEDS: METOPROLOL SUCC 25MG EXT REL TAB PO SCH (08:03)
[2021-08-18] MEDS: CHOLECALCIFEROL 1,000 UNITS 25 MCG TAB PO SCH (08:04)
[2021-08-18] MEDS: FERROUS SULFATE 325 MG TAB PO SCH (08:04)
[2021-08-18] MEDS: ASPIRIN 81 MG ECTAB PO SCH (08:04)
[2021-08-18] MEDS: POLYETHYLENE (MIRALAX) 17 GM PACK PO SCH (08:05)
[2021-08-18] MEDS: SERTRALINE HCL 100 MG TABLET PO SCH (08:05)
[2021-08-18] MEDS: DOCUSATE SODIUM/SENNA 50/8.6MG TAB PO SCH (08:05)
[2021-08-18] MEDS: LEVOTHYROXINE SODIUM 112 MCG TABLET PO SCH (08:06)
[2021-08-18] MEDS: CETIRIZINE HCL 10 MG TABLET PO SCH (08:06)
[2021-08-18] MEDS: CEROVITE ADV FORMULA TAB PO SCH (08:06)
[2021-08-18] MEDS: PANTOprazole 40 MG TAB PO SCH ×2 (08:06→21:47)
[2021-08-18 08:07] LABS: BUN Creatinine Ratio 28.2 (10-20); Calcium 8.6 mg/dl (8.5-10.1); Creatinine Clr Calc Pharmacy 30.3 ml/min; Est GFR (African American) 50.3 ml/min; Est GFR (Non-African American) 43.4 ml/min; Potassium 4.5 mmol/L (3.5-5.1)
[2021-08-18] MEDS: CARBIDOPA/LEVODOPA 25/100MG TAB PO SCH ×4 (08:07→21:45)
[2021-08-18] MEDS: ALUMINUM/MAGNESIUM SUSP 30 ML UDC PO SCH ×3 (08:07→21:43)
--- NOTE | 2021-08-18 12:03 | Hospitalist Progress Note ---
Date of Service August 18, 2021 Assessment & Plan (1) Shortness of breath: (2) Elevated troponin: (3) Nausea: (4) History of coronary artery disease: (5) Hypokalemia: Plan: This is an 80-year-old female who has significant past medical history of CAD with history of PCI x7, history of cardiomyopathy with EF 30 to 35% now resolved, diastolic CHF, HTN, HLD, hypothyroidism, Parkinson's disease, prediabetes, GERD, gastroparesis status post EGD and Botox June 2021, macular degeneration, depression, history of SDH, dyskinesia who presents to ED secondary to shortness of breath x1 to 2 days and nausea/abdominal discomfort Syncope Known CAD with hx of PCI x 7 Chronic HFpef - hx of cardiomyopathy 12/30 now resolved Trop mildly elevated but trend is flat TTE results noted Syncope in setting of hypotension from recent diuresis then ambulation, in setting of chronic orthostasis Appreciate Cardiology input, discontinue lisinopril, reduce BB, avoid further diuresis Intractable Nausea/vomiting, resolved -Chronic gastroparesis -Recent botox injection but with no improvement -Appreciate GI input- place on zofran TID, consider Emend if no improvement -Reglan PRN -improved BINH on CKD -renal ultraound shows mild-mod cortical thinning bilateral kidneys - s/p 2 days of NSS at 80 cc/hr -Nephrology consulted, appreciate input -renal function back to baseline Hypokalemia replete PRN Orthostatic hypotension -d/c lisinopril, lasix, reduce BB -consider midodrine if further episodes of hypotension HLD continue statin Parkinson disease continue sinemet Depression with anxiety continue zoloft DNR/DNI DVT ppx: SCDS, hx of SDH Dispo: med tele, from home. Evaluated by PT now recommend SNF. Referral sent to [facility] 08/17 PCP: Mario Pending Placement Admission and Anticipated Discharge Date Admission Date: August 14, 2021 Subjective Patient feels well, denies chest pain, shortness of breath or nausea BP is labile but no episodes of hypotension No further episodes of syncope Physical Exam Physical Exam: Pleasant, comfortable, no acute distress Respiratory: breathing comfortably on roomair, no wheezing/rhonchi/rales Cardiovascular: regular rate and rhythm, no murmurs/rubs Gastrointestinal (Abdomen): soft, non tender Musculoskeletal: no edema Neurologic: +resting tremor Results & Data Results & Data ([facility]) Vital Signs (Past 12 Hours) Vital Signs Temp Pulse Pulse Pulse Resp BP Pulse Ox 08/18/21 11:22 80 19 91 08/18/21 11:11 36.6 C 66 21 116/68 97 08/18/21 07:12 80 19 92 08/18/21 07:09 36.4 C L 69 21 160/90 H 98 08/18/21 07:00 62 08/18/21 03:34 36.6 C 79 18 107/52 L 92 Laboratory Results Short CBC 08/18/21 Range/Units 06:19 WBC 7.02 (4.8-10.8) K/uL Hgb 11.3 L (12.0-16.0) g/dL Hct 34.7 L (37-47) % Plt Count 167 (130-400) K/uL BMP 08/18/21 06:19 Sodium 140 Potassium 4.5 Chloride 108 H Carbon Dioxide 31 BUN 33 H Creatinine 1.17 D Glucose 84 Calcium 8.6 Medications Administered Current Inpatient Medications Acetaminophen (Acetaminophen 325 Mg Tab) 650 mg PO Q4H PRN PRN Reason: Pain or Fever Stop: 09/13/21 20:34 Last Admin: 08/17/21 20:33 Dose: 325 mg Documented by: Al Hydrox/Mg Hydrox/Simethicone (Aluminum/Magnesium Susp 30 Ml Udc) 15 ml PO TID [facility] Stop: 09/14/21 13:59 Last Admin: 08/18/21 08:07 Dose: 15 ml Documented by: Albuterol (Albuterol Hfa 8 Gm Inhaler) 2 puffs INH QIDR [facility] Stop: 09/14/21 06:59 Last Admin: 08/18/21 11:21 Dose: 2 puffs Documented by: Aspirin (Aspirin 81 Mg Ectab) 81 mg PO QAM [facility] Stop: 09/14/21 08:59 Last Admin: 08/18/21 08:04 Dose: 81 mg Documented by: Atorvastatin Calcium (Atorvastatin 40 Mg Tab) 40 mg PO [facility] Stop: 09/13/21 20:59 Last Admin: 08/17/21 20:35 Dose: 40 mg Documented by: Carbidopa/Levodopa (Carbidopa/Levodopa 50/200mg Ext Rel Tab) 1 tab PO [facility] Stop: 09/13/21 20:59 Last Admin: 08/17/21 20:39 Dose: 1 tab Documented by: Carbidopa/Levodopa (Carbidopa/Levodopa 25/100mg Tab) 1.5 tab PO QID [facility] Stop: 09/13/21 20:34 Last Admin: 08/18/21 08:07 Dose: 1.5 tab Documented by: Cetirizine HCl (Cetirizine Hcl 10 Mg Tablet) 10 mg PO QAM [facility] Stop: 09/14/21 08:59 Last Admin: 08/18/21 08:06 Dose: 10 mg Documented by: Cyanocobalamin (Cyanocobalamin (B-12) 500 Mcg Tablet) 1,000 mcg PO QPM [facility] Stop: 09/13/21 20:59 Last Admin: 08/17/21 20:36 Dose: 1,000 mcg Documented by: Ferrous Sulfate (Ferrous Sulfate 325 Mg Tab) 325 mg PO DAILY [facility] Stop: 09/14/21 08:59 Last Admin: 08/18/21 08:04 Dose: 325 mg Documented by: Levothyroxine Sodium (Levothyroxine Sodium 112 Mcg Tablet) 112 mcg PO QAM [facility] Stop: 09/14/21 08:59 Last Admin: 08/18/21 08:06 Dose: 112 mcg Documented by: Magnesium Hydroxide (Magnesium Hydroxide Susp 30 Ml Udc) 30 ml PO Q12H PRN PRN Reason: Constipation Stop: 09/13/21 20:34 Melatonin (Melatonin 3 Mg Tab) 4.5 mg PO HS [facility] Stop: 09/13/21 20:59 Last Admin: 08/17/21 20:36 Dose: 4.5 mg Documented by: Menthol (Cough Drop (Sugar Free) Jeremiah 24 Jeremiah/1 Box) 1 jeremiah BUCCAL PRN PRN PRN Reason: Sore Throat Stop: 09/14/21 05:50 Metoclopramide HCl (Metoclopramide Hcl Inj 5 Mg/Ml 2 Ml Vial) 10 mg IV Q6H PRN PRN Reason: Nausea Stop: 09/14/21 11:52 Last Admin: 08/15/21 12:21 Dose: 10 mg Documented by: Metoprolol Succinate (Metoprolol Succ 25mg Ext Rel Tab) 12.5 mg PO QAM [facility] Stop: 09/15/21 08:59 Last Admin: 08/18/21 08:03 Dose: 12.5 mg Documented by: Multivitamins/Minerals (Cerovite Adv Formula Tab) 1 tab PO QAM [facility] Stop: 09/14/21 08:59 Last Admin: 08/18/21 08:06 Dose: 1 tab Documented by: Ondansetron HCl (Ondansetron 4 Mg Od Tab) 4 mg PO Q8 [facility] Stop: 09/15/21 13:59 Last Admin: 08/18/21 06:15 Dose: 4 mg Documented by: Pantoprazole Sodium (Pantoprazole 40 Mg Tab) 40 mg PO BID [facility] Stop: 09/14/21 20:59 Last Admin: 08/18/21 08:06 Dose: 40 mg Documented by: Polyethylene Glycol (Polyethylene (Miralax) 17 Gm Pack) 17 gm PO DAILY PRN PRN Reason: Constipation Stop: 09/13/21 20:34 Polyethylene Glycol (Polyethylene (Miralax) 17 Gm Pack) 17 gm PO DAILY [facility] Stop: 09/14/21 08:59 Last Admin: 08/18/21 08:05 Dose: 17 gm Documented by: Senna/Docusate Sodium (Docusate Sodium/Senna 50/8.6mg Tab) 2 tab PO QAM [facility] Stop: 09/14/21 08:59 Last Admin: 08/18/21 08:05 Dose: 2 tab Documented by: Sertraline HCl (Sertraline Hcl 100 Mg Tablet) 100 mg PO QAM [facility] Stop: 09/14/21 08:59 Last Admin: 08/18/21 08:05 Dose: 100 mg Documented by: Vitamin D (Cholecalciferol 1,000 Units 25 Mcg Tab) 1,000 units PO QAM [facility] Stop: 09/14/21 08:59 Last Admin: 08/18/21 08:04 Dose: 1,000 units Documented by:
[2021-08-18] MEDS: ACETAMINOPHEN 325 MG TAB PO PRN (21:42)
[2021-08-18] MEDS: ATORVASTATIN 40 MG TAB PO SCH (21:45)
[2021-08-18] MEDS: CYANOCOBALAMIN (B-12) 500 MCG TABLET PO SCH (21:46)
[2021-08-18] MEDS: HEPARIN SOD 5,000 UNIT/0.5 ML VIAL SQ SCH ×2 (21:46→21:58)
[2021-08-18] MEDS: CARBIDOPA/LEVODOPA 50/200MG EXT REL TAB PO SCH (21:46)
[2021-08-18] MEDS: MELATONIN 3 MG TAB PO SCH (21:47)
[2021-08-19] MEDS: ONDANSETRON 4 MG OD TAB PO SCH ×3 (05:55→21:16)
[2021-08-19] MEDS: ALBUTEROL HFA 8 GM INHALER INH SCH ×4 (06:55→20:02)
[2021-08-19 08:10] LABS: BUN Creatinine Ratio 32.3 (10-20); Calcium 8.6 mg/dl (8.5-10.1); Creatinine Clr Calc Pharmacy 37.2 ml/min; Est GFR (African American) 63.8 ml/min; Est GFR (Non-African American) 55.1 ml/min; Potassium 4.7 mmol/L (3.5-5.1)
[2021-08-19] MEDS: DOCUSATE SODIUM/SENNA 50/8.6MG TAB PO SCH (09:10)
[2021-08-19] MEDS: METOPROLOL SUCC 25MG EXT REL TAB PO SCH (09:10)
[2021-08-19] MEDS: CEROVITE ADV FORMULA TAB PO SCH (09:10)
[2021-08-19] MEDS: SERTRALINE HCL 100 MG TABLET PO SCH (09:12)
[2021-08-19] MEDS: CHOLECALCIFEROL 1,000 UNITS 25 MCG TAB PO SCH (09:12)
[2021-08-19] MEDS: FERROUS SULFATE 325 MG TAB PO SCH (09:12)
[2021-08-19] MEDS: ASPIRIN 81 MG ECTAB PO SCH (09:12)
[2021-08-19] MEDS: PANTOprazole 40 MG TAB PO SCH ×2 (09:12→21:16)
[2021-08-19] MEDS: CARBIDOPA/LEVODOPA 25/100MG TAB PO SCH ×4 (09:13→21:05)
[2021-08-19] MEDS: ALUMINUM/MAGNESIUM SUSP 30 ML UDC PO SCH ×3 (09:14→21:07)
[2021-08-19] MEDS: LEVOTHYROXINE SODIUM 112 MCG TABLET PO SCH (09:15)
[2021-08-19] MEDS: POLYETHYLENE (MIRALAX) 17 GM PACK PO SCH (09:18)
[2021-08-19] MEDS: HEPARIN SOD 5,000 UNIT/0.5 ML VIAL SQ SCH ×2 (09:18→21:09)
[2021-08-19] MEDS: CETIRIZINE HCL 10 MG TABLET PO SCH (09:18)
[2021-08-19] MEDS ORDERED: MINERAL OIL ENEMA 133 ML BTL PR ONE (14:25)
[2021-08-19] MEDS ORDERED: CARBIDOPA/LEVODOPA 25/100MG TAB ODT PO PRN (14:25)
[2021-08-19] MEDS: MAGNESIUM HYDROXIDE SUSP 30 ML UDC PO SCH (15:11)
--- NOTE | 2021-08-19 16:15 | Hospitalist Progress Note ---
Date of Service August 19, 2021 Assessment & Plan (1) Shortness of breath: (2) Elevated troponin: (3) Nausea: (4) History of coronary artery disease: (5) Hypokalemia: Plan: This is an 80-year-old female who has significant past medical history of CAD with history of PCI x7, history of cardiomyopathy with EF 30 to 35% now resolved, diastolic CHF, HTN, HLD, hypothyroidism, Parkinson's disease, prediabetes, GERD, gastroparesis status post EGD and Botox June 2021, macular degeneration, depression, history of SDH, dyskinesia who presents to ED secondary to shortness of breath x1 to 2 days and nausea/abdominal discomfort Syncope Known CAD with hx of PCI x 7 Chronic HFpef - hx of cardiomyopathy 12/30 now resolved Trop mildly elevated but trend is flat TTE results noted Syncope in setting of hypotension from recent diuresis then ambulation, in setting of chronic orthostasis Appreciate Cardiology input, discontinue lisinopril, reduce BB, avoid further diuresis Intractable Nausea/vomiting, resolved -Chronic gastroparesis -Recent botox injection but with no improvement -Appreciate GI input- place on zofran TID, consider Emend if no improvement -Reglan PRN -improved BINH on CKD -renal ultraound shows mild-mod cortical thinning bilateral kidneys - s/p 2 days of NSS at 80 cc/hr -Nephrology consulted, appreciate input -renal function back to baseline Hypokalemia replete PRN Orthostatic hypotension -d/c lisinopril, lasix, reduce BB -consider midodrine if further episodes of hypotension HLD continue statin Parkinson disease continue sinemet-- she is on 1.5 tabs QID and extended release QHS, also receives an extra tab PRN for worsening tremors (ordered) Will hold Ferrous sulfate which can affect sinemet absorption Constipation -continue aggressive bowel regimen -mineral oil enema now Depression with anxiety continue zoloft DNR/DNI DVT ppx: SQ heparin Dispo: med tele, from home. Evaluated by PT now recommend SNF. Referral sent to [facility] 08/17 PCP: Mario Pending Placement Admission and Anticipated Discharge Date Admission Date: August 14, 2021 Subjective Feels worsening tremors today At home, she takes an extra Sinemet dose as needed for severe tremors Also with constipation, agreeable for an enema Physical Exam Physical Exam: Sitting in bed, no acute distress but upset that she's having so much tremors Respiratory: breathing comfortably on room air, no wheezing/rhonchi/rales Cardiovascular: regular rate and rhythm, no murmurs/rubs/gallops Gastrointestinal (Abdomen): soft, non tender Musculoskeletal: no edema Neurologic: +pronounced resting tremors Results & Data Results & Data ([facility]) Vital Signs (Past 12 Hours) Vital Signs Temp Pulse Pulse Pulse Pulse Resp BP 08/19/21 16:04 36.8 C 63 18 108/63 08/19/21 15:18 70 08/19/21 14:33 78 18 08/19/21 12:54 36.8 C 63 20 08/19/21 10:30 79 20 08/19/21 07:00 60 08/19/21 06:56 77 18 08/19/21 06:44 36.7 C 58 L 18 137/81 Pulse Ox 08/19/21 16:04 94 08/19/21 15:18 08/19/21 14:33 92 08/19/21 12:54 97 08/19/21 10:30 92 08/19/21 07:00 08/19/21 06:56 93 08/19/21 06:44 96 Laboratory Results BMP 08/19/21 06:45 Sodium 138 Potassium 4.7 Chloride 106 Carbon Dioxide 30 BUN 31 H Creatinine 0.96 Glucose 78 Calcium 8.6 Medications Administered Current Inpatient Medications Acetaminophen (Acetaminophen 325 Mg Tab) 650 mg PO Q4H PRN PRN Reason: Pain or Fever Stop: 09/13/21 20:34 Last Admin: 08/18/21 21:42 Dose: 650 mg Documented by: Al Hydrox/Mg Hydrox/Simethicone (Aluminum/Magnesium Susp 30 Ml Udc) 15 ml PO TID [facility] Stop: 09/14/21 13:59 Last Admin: 08/19/21 13:11 Dose: 15 ml Documented by: Albuterol (Albuterol Hfa 8 Gm Inhaler) 2 puffs INH QIDR [facility] Stop: 09/14/21 06:59 Last Admin: 08/19/21 14:30 Dose: 2 puffs Documented by: Aspirin (Aspirin 81 Mg Ectab) 81 mg PO QAM [facility] Stop: 09/14/21 08:59 Last Admin: 08/19/21 09:12 Dose: 81 mg Documented by: Atorvastatin Calcium (Atorvastatin 40 Mg Tab) 40 mg PO HS [facility] Stop: 09/13/21 20:59 Last Admin: 08/18/21 21:45 Dose: 40 mg Documented by: Carbidopa/Levodopa (Carbidopa/Levodopa 50/200mg Ext Rel Tab) 1 tab PO HS [facility] Stop: 09/13/21 20:59 Last Admin: 08/18/21 21:46 Dose: 1 tab Documented by: Carbidopa/Levodopa (Carbidopa/Levodopa 25/100mg Tab) 1.5 tab PO QID [facility] Stop: 09/13/21 20:34 Last Admin: 08/19/21 13:12 Dose: 1.5 tab Documented by: Carbidopa/Levodopa (Carbidopa/Levodopa 25/100mg Tab Odt) 1 tab PO DAILY PRN PRN Reason: tremor Stop: 09/18/21 14:29 Cetirizine HCl (Cetirizine Hcl 10 Mg Tablet) 10 mg PO QAM [facility] Stop: 09/14/21 08:59 Last Admin: 08/19/21 09:18 Dose: 10 mg Documented by: Cyanocobalamin (Cyanocobalamin (B-12) 500 Mcg Tablet) 1,000 mcg PO QPM [facility] Stop: 09/13/21 20:59 Last Admin: 08/18/21 21:46 Dose: 1,000 mcg Documented by: Ferrous Sulfate (Ferrous Sulfate 325 Mg Tab) 325 mg PO DAILY [facility] Stop: 09/14/21 08:59 Last Admin: 08/19/21 09:12 Dose: 325 mg Documented by: Heparin Sodium (Porcine) (Heparin Sod 5,000 Unit/0.5 Ml Vial) 5,000 units SQ Q12 [facility] Stop: 09/17/21 20:59 Last Admin: 08/19/21 09:18 Dose: Not Given Documented by: Levothyroxine Sodium (Levothyroxine Sodium 112 Mcg Tablet) 112 mcg PO QAM [facility] Stop: 09/14/21 08:59 Last Admin: 08/19/21 09:15 Dose: 112 mcg Documented by: Magnesium Hydroxide (Magnesium Hydroxide Susp 30 Ml Udc) 30 ml PO Q12H [facility] Stop: 09/18/21 14:29 Last Admin: 08/19/21 15:11 Dose: 30 ml Documented by: Melatonin (Melatonin 3 Mg Tab) 4.5 mg PO HS [facility] Stop: 09/13/21 20:59 Last Admin: 08/18/21 21:47 Dose: 4.5 mg Documented by: Menthol (Cough Drop (Sugar Free) Jeremiah 24 Jeremiah/1 Box) 1 jeremiah BUCCAL PRN PRN PRN Reason: Sore Throat Stop: 09/14/21 05:50 Metoclopramide HCl (Metoclopramide Hcl Inj 5 Mg/Ml 2 Ml Vial) 10 mg IV Q6H PRN PRN Reason: Nausea Stop: 09/14/21 11:52 Last Admin: 08/15/21 12:21 Dose: 10 mg Documented by: Metoprolol Succinate (Metoprolol Succ 25mg Ext Rel Tab) 12.5 mg PO QAM [facility] Stop: 09/15/21 08:59 Last Admin: 08/19/21 09:10 Dose: 12.5 mg Documented by: Multivitamins/Minerals (Cerovite Adv Formula Tab) 1 tab PO QAM [facility] Stop: 09/14/21 08:59 Last Admin: 08/19/21 09:10 Dose: 1 tab Documented by: Ondansetron HCl (Ondansetron 4 Mg Od Tab) 4 mg PO Q8 [facility] Stop: 09/15/21 13:59 Last Admin: 08/19/21 15:04 Dose: Not Given Documented by: Pantoprazole Sodium (Pantoprazole 40 Mg Tab) 40 mg PO BID [facility] Stop: 09/14/21 20:59 Last Admin: 08/19/21 09:12 Dose: 40 mg Documented by: Polyethylene Glycol (Polyethylene (Miralax) 17 Gm Pack) 17 gm PO DAILY PRN PRN Reason: Constipation Stop: 09/13/21 20:34 Polyethylene Glycol (Polyethylene (Miralax) 17 Gm Pack) 17 gm PO DAILY [facility] Stop: 09/14/21 08:59 Last Admin: 08/19/21 09:18 Dose: 17 gm Documented by: Senna/Docusate Sodium (Docusate Sodium/Senna 50/8.6mg Tab) 2 tab PO QAM [facility] Stop: 09/14/21 08:59 Last Admin: 08/19/21 09:10 Dose: 2 tab Documented by: Sertraline HCl (Sertraline Hcl 100 Mg Tablet) 100 mg PO QAM [facility] Stop: 09/14/21 08:59 Last Admin: 08/19/21 09:12 Dose: 100 mg Documented by: Vitamin D (Cholecalciferol 1,000 Units 25 Mcg Tab) 1,[address] [facility] Stop: 09/14/21 08:59 Last Admin: 08/19/21 09:12 Dose: 1,000 units Documented by:
[2021-08-19] MEDS: ACETAMINOPHEN 325 MG TAB PO PRN (18:04)
[2021-08-19] MEDS: ATORVASTATIN 40 MG TAB PO SCH (21:04)
[2021-08-19] MEDS: CYANOCOBALAMIN (B-12) 500 MCG TABLET PO SCH (21:09)
[2021-08-19] MEDS: MELATONIN 3 MG TAB PO SCH (21:15)
[2021-08-19] MEDS: CARBIDOPA/LEVODOPA 50/200MG EXT REL TAB PO SCH (21:33)
[2021-08-20] MEDS: MAGNESIUM HYDROXIDE SUSP 30 ML UDC PO SCH ×2 (01:33→13:51)
[2021-08-20] MEDS: ONDANSETRON 4 MG OD TAB PO SCH ×2 (05:01→13:49)
[2021-08-20] MEDS: ALBUTEROL HFA 8 GM INHALER INH SCH ×2 (07:08→11:05)
[2021-08-20] MEDS: POLYETHYLENE (MIRALAX) 17 GM PACK PO SCH (08:03)
[2021-08-20] MEDS: CETIRIZINE HCL 10 MG TABLET PO SCH (08:04)
[2021-08-20] MEDS: CHOLECALCIFEROL 1,000 UNITS 25 MCG TAB PO SCH (08:04)
[2021-08-20] MEDS: ASPIRIN 81 MG ECTAB PO SCH (08:04)
[2021-08-20] MEDS: PANTOprazole 40 MG TAB PO SCH (08:04)
[2021-08-20] MEDS: CEROVITE ADV FORMULA TAB PO SCH (08:04)
[2021-08-20] MEDS: HEPARIN SOD 5,000 UNIT/0.5 ML VIAL SQ SCH (08:04)
[2021-08-20] MEDS: DOCUSATE SODIUM/SENNA 50/8.6MG TAB PO SCH (08:04)
[2021-08-20] MEDS: METOPROLOL SUCC 25MG EXT REL TAB PO SCH (08:05)
[2021-08-20] MEDS: CARBIDOPA/LEVODOPA 25/100MG TAB PO SCH ×2 (08:05→13:49)
[2021-08-20] MEDS: SERTRALINE HCL 100 MG TABLET PO SCH (08:05)
[2021-08-20] MEDS: LEVOTHYROXINE SODIUM 112 MCG TABLET PO SCH (08:06)
[2021-08-20] MEDS: ALUMINUM/MAGNESIUM SUSP 30 ML UDC PO SCH ×2 (08:11→13:48)
--- NOTE | 2021-08-20 13:52 | Discharge Summary ---
Date of Service August 20, 2021 Admission HPI Per Admitting Provider This is an 80-year-old female who has significant past medical history of CAD with history of PCI x7, history of cardiomyopathy with EF 30 to 35% now resolved, diastolic CHF, HTN, HLD, hypothyroidism, Parkinson's disease, prediabetes, GERD, gastroparesis status post EGD and Botox June 2021, macular degeneration, depression, history of SDH, dyskinesia who presents to ED secondary to shortness of breath x1 to 2 days. She admits to being short of breath for the last several months. Over the last 1 to 2 days she notes it being significantly worse. Episodes can occur at rest or with exertion. They also vary in duration from minutes to 1 to 2 hours. This morning she was awoke from her sleep at approximately 4:30 AM and was extremely short of breath. This lasted 1-1/2 hours. She tried cough drops and Tagamet with no relief. Nothing makes symptoms better. It was made worse with walking to and from the bathroom. She also experienced dull substernal chest pressure that was nonradiating and described as, "angina." This lasted for several seconds and resolved without intervention. She also complained of feeling sweaty, but then stated "I always feel sweaty when I wake up at 4 AM." She denies any associated lightheadedness, dizziness or vomiting. She did describe nausea, but has chronic nausea from gastroparesis and feels this was the same. She denies any increased lower extremity swelling or weight gain. She actually admits to weight loss due to difficulty eating with gastroparesis. She did have Botox injection June 2021 without any improvement. She does have chronic constipation her last bowel movement was 2 days ago. She did have a GI bug approximately 1 week ago. Her was also ill. She described it as a stomach cramping and dry heaving for 1 day. She admits to missing a few doses of her Lasix last week. She denies any fever, chills, sweats, lightheadedness, dizziness, syncope, palpitations, cough, hemoptysis, emesis, abdominal pain, dysuria, increased urge ncy or frequency with urination, melena or hematochezia. Daughter is at bedside who is also concerned regarding her GI symptoms and wishes for her to be evaluated by gastroenterology while here. She feels of her GI symptoms would improve it may alleviate some of her other symptoms. Patient also notes that shortness of breath comes and goes with her anxiety and then gets made worse with increasing tremors. In ED patient remained hemodynamically stable. Her CBC and CMP was generally unremarkable. She did have mild hypokalemia at 3.3. Her troponin was minimally elevated at 0.08 and BNP elevated at 470. Her urinalysis was negative for infection. Her chest x-ray was negative for acute abnormality. Her SARS-CoV-2 was negative. It was felt due to missed doses of Lasix and acute onset s hortness of breath she may be suffering from mild decompensation of CHF and received Lasix IV x1 dose. Principal Diagnosis Chronic shortness of breath Orthostatic hypotension, medication induced BINH, resolved Gastroparesis with intractable nausea/vomiting, improved Parkinsons disease Discharge Exam Appears stated age. No acute distress No wheezing/rhonchi/rales Regular rate and rhythm, no murmurs/rubs/gallops Abd- soft, non tender +resting tremors Discharge Data Allergies Allergy/AdvReac Type Severity Reaction Status Date / Time celecoxib AdvReac Intermediate GI SYMPTOMS Verified 08/14/21 10:36 aspirin AdvReac Mild Gastrointestinal Verified 08/14/21 10:36 Upset with 325mg dose. hydrocodone AdvReac Unknown STOMACH Verified 08/14/21 10:36 IRRITATION Consultations 08/14/21 14:14 ED Decision to Admit Stat 08/14/21 15:02 Consult Gastroenterology Routine 08/15/21 11:54 Consult Cardiology Routine 08/17/21 08:05 Consult Nephrology Routine Ordered Studies 08/17/21 08:03 US renal/blad retro comp Urgent Hospital Course (1) Shortness of breath: (2) Elevated troponin: (3) Nausea: (4) History of coronary artery disease: (5) Hypokalemia: This is an 80-year-old female who has significant past medical history of CAD with history of PCI x7, history of cardiomyopathy with EF 30 to 35%, HLD, hypothyroidism, Parkinson's disease, prediabetes, GERD, gastroparesis status post EGD and Botox June 2021, macular degeneration, depression, history of SDH, dyskinesia who presents to ED secondary to chronic shortness of breath which worsened in past 1-2 days and intractable nausea. For her shortness of breath, workup was unrevealing. CXR was negative, she was not hypoxic, however because BNP was mildly elevated, she received lasix 40mg IV. Later, when working with physical therapy, she became hypotensive and syncopized triggering a rapid response. She was evaluated by Cardiology and it was recommended her lisinopril be discontinued, her metoprolol reduced and her lasix discontinued. Patient does have a long standing history of orthostasis and hypotension should be avoided. Patient should follow up with her Mdm Sr within 2 weeks of discharge to see whether her lasix should be resumed (at low dose). Because of her episode of orthostatic hypotension and syncope, she then developed BINH with Cr peaking at 1.8. With IVF, her Cr slowly improved back marcelle n to baseline. Renal ultrasound confirms mild-moderate cortical thinning of her bilateral kidneys. While here, she was also seen by GI for her nausea/vomiting related to her gastroparesis. She was placed on scheduled zofran with improvement of her symptoms. She will need to follow up with GI for further management of her gastroparesis which has been long standing. She was evaluated by PT and felt to be weaker than her baseline and SNF was recommended. She was accepted at [facility]. Of note, she does at times have worsening tremors and takes an additional Sinemet tablet as needed. She was instructed to follow up with her Neurologist to see if her Sinemet doses need to be adjusted. In addition, her Ferrous Sulfate was discontinued since it may cause reduce absorption of Sinemet. D uring these episodes of worsening tremors, she becomes fatigue and anxious which leads her to feel dyspneic however with no hypoxia noted while here. Total Time Total Time Spent Total Time Spent (In Minutes): 40 Discharge Plan Discharge Items Patient Disposition: Transfer Halfway Fac Reason For Visit: SOB Discharge Diagnosis: Chronic shortness of breath Parkinsons Gastoparesis BINH, resolved Orthostatic hypotension, medication induced--resolved Condition on Discharge: Good Activity: Resume your previous activity Non-emergency contact: Primary Care Provider and Neurologist Call non-emergency contact if: you have any medication questions Follow-up/Referrals: Raisa Martin MD [Primary Care Provider] - (Date & Time 08/23/2021 11:20 AM Provider Julia Conti MD Department Family Medicine [facility] Diet: Low Sodium (2gm) Diet Texture: Easy to Chew Addtl Attending Provider Instructions: Patient at times has worsening tremors and requires extra dose of Sinemet. Please not that during these times, she does get anxious and reports dyspnea Avoid hypotension Ferrous sulfate was discontinued due to potentially reducing efficacy of Sinemet. If she needs iron replacement, would need IV infusions Please follow up with Neurology for management of Parkinsons Pending Studies at Discharge: No Stand-Alone Forms: My [facility] Skilled Items Patient informed of condition?: Yes DNR: Yes Discharge Level of Care: Skilled Communicable Disease: No Discharge Prognosis: Stable Lines: None Urinary Catheter: No Medications and DC Order Prescriptions: New polyethylene glycol 3350 [Miralax] 17 gram Powder In Packet 17 g PO DAILY PRN (Reason: constipation) 30 Days Qty: 30 RF: 0 pantoprazole 40 mg Tablet,Delayed Release (Dr/Ec) 40 mg PO BID 30 Days Qty: 60 RF: 1 metoprolol succinate 25 mg Tablet Extended Release 24 Hr 12.5 mg PO QAM 30 Days Qty: 15 RF: 1 ondansetron 4 mg Tablet,Disintegrating 4 mg PO Q8 30 Days Qty: 90 RF: 0 carbidopa-levodopa 25-100 mg Tablet,Disintegrating 1 tab PO DAILY PRN (Reason: Tremors) 30 Days Qty: 30 RF: 1 Continued atorvastatin 40 mg Tablet 40 mg PO HS RF: 0 melatonin 5 mg Tablet 5 mg PO HS RF: 0 cetirizine [Zyrtec] 10 mg Tablet 10 mg PO QAM RF: 0 sertraline 100 mg tablet 100 mg PO QAM RF: 0 sennosides-docusate sodium [Stool Softener-Laxative] 8.6-50 mg tablet 2 tab PO QAM RF: 0 levothyroxine 112 mcg tablet 112 mcg PO QAM RF: 0 carbidopa-levodopa [Sinemet] 25-100 mg tablet 1.5 tab PO QID RF: 0 carbidopa-levodopa 50-200 mg tablet extended release 1 tab PO HS RF: 0 cyanocobalamin (vitamin B-12) [Vitamin B-12] 1,000 mcg Tablet 1,000 mcg PO QPM RF: 0 aspirin 81 mg Tablet,Delayed Release (Dr/Ec) 81 mg PO QAM RF: 0 cholecalciferol (vitamin D3) [Vitamin D3] 25 mcg (1,000 unit) Capsule 25 mcg PO QAM RF: 0 Ocuvite with Lutein 1,000 unit-200 mg-60 unit-2 mg Tablet 1 tab PO QAM RF: 0 albuterol sulfate 90 mcg/actuation Hfa Aerosol Inhaler 2 puff INHALATION QID RF: 0 Discontinued lisinopril 5 mg Tablet 5 mg PO QAM RF: 0 metoprolol succinate 25 mg Tablet Extended Release 24 Hr 25 mg PO QAM RF: 0 pantoprazole 40 mg tablet,delayed release (DR/EC) 40 mg PO QAM RF: 0 furosemide [Lasix] 20 mg tablet 20 mg PO QAM RF: 0 ferrous sulfate [iron] 325 mg (65 mg iron) Tablet 325 mg PO DAILY RF: 0 Discharge Orders: Discharge Order (Routine); Ordered 08/20/21 Ordered By: John Anguiano/Other Patient Handouts: A1C Admission Data Admit Date/Time: 08/14/21 14:19 Attending Provider: John Britton Admit Provider: Elian Farmer Primary Care Provider: Raisa Martin Other Providers: Elian Farmer ; Eugene Ferro ; Trevon Roque ; [facility]
--- NOTE | 2021-08-28 14:54 | Coding Query ---
To promote full compliance with coding requirements relating to patient care, provider participation is requested in all cases of city secretary uncertainty. Please assist us with the question(s) below: Coding Question(s): The diagnosis below was documented in the H&P, (and in the Admission HPI area on the Discharge Summary), then subsequently fell off all further documentation. Please indicate if it is still a possible diagnosis or ruled out. Physician's Response(s): MILD DECOMPENSATION OF CHF ( ) Diagnosed and POA ( ) Diagnosed and not POA ( X ) Ruled out ( ) Other (please specify) MTDD
--- NOTE | 2021-08-28 14:57 | Coding Query ---
CODING QUERY To promote full compliance with coding requirements relating to patient care, provider participation is requested in all cases of card reader uncertainty. Please assist us with the question(s) below: Coding Question(s): Please specify below, in your clinical opinion, to specify the most likely source of the Shortness of Breath. ( ) most likely due to possible mild decompensation of CHF ( X ) most likely due to Other: Please Specify Anxiety ( ) due to Unknown most likely source Physician's Response(s): Thank you Ольга Roldan Principal Diagnosis: "that condition established after study, to be chiefly responsible for occasioning the admission of the patient to the hospital for care." Co-Existing Principal Diagnosis: "when two or more diagnoses equally meet the criteria for principal diagnosis as determined by the circumstances of admission, diagnostic work up, and/or therapy provided, and the Alphabetic Index, Tabular List, or another coding guideline does not provide sequencing direction, any one of the diagnoses may be sequenced first." "When the physician has documented what appears to be a current diagnosis in the body of the record, but has not included the diagnosis in the final diagnostic statement, the physician should be asked whether the diagnosis should be added." (Source Coding Clinic 2 QTR90. p3-4) DEVENDRA
--- NOTE | 2021-08-31 08:03 | Coding Query ---
CODING QUERY To promote full compliance with coding requirements relating to patient care, provider participation is requested in all cases of medical biller/coder uncertainty. Please assist us with the question(s) below: Coding Question(s): Gastroparesis is documented throughout the record with documentation on the ER of + nausea/vomiting and, "She states she has chronic abdominal pain due to gastroparesis, however that was worse last week also. She states she did have nausea, decreased oral intake, and vomiting", and the ER also documents, "Patient with multiple complications secondary to her Parkinson's disease", the H&P document, "She actually admits to weight loss due to difficulty eating with gastroparesis. She did have Botox injection June 2021 without any improvement", and, "Daughter is at bedside who is also concerned regarding her GI symptoms and wishes for her to be evaluated by gastroenterology while here. She feels of her GI symptoms would improve it may alleviate some of her other symptoms", and the Cardiology Consultation on 08/15/21 documents, " Parkinsonism with marked dysmetria, orthostatic hypotension with multiple falls, gastroparesis". Please specify below, in your clinical opinion, regarding the Gastroparesis. ( ) Gastroparesis with underlying disease of Parkinsonism ( ) Gastroparesis completely unrelated to Parkinsonism ( X ) Other: Please Specify Unclear if her gastroparesis is from Parkinsons Physician's Response(s): Thank you Ольга Roldan Principal Diagnosis: "that condition established after study, to be chiefly responsible for occasioning the admission of the patient to the hospital for care." Co-Existing Principal Diagnosis: "when two or more diagnoses equally meet the criteria for principal diagnosis as determined by the circumstances of admission, diagnostic work up, and/or therapy provided, and the Alphabetic Index, Tabular List, or another coding guideline does not provide sequencing direction, any one of the diagnoses may be sequenced first." "When the physician has documented what appears to be a current diagnosis in the body of the record, but has not included the diagnosis in the final diagnostic statement, the physician should be asked whether the diagnosis should be added." (Source Coding Clinic 2 QTR90. p3-4) DEVENDRA
--- NOTE | 2021-08-31 08:05 | Coding Query ---
CODING QUERY To promote full compliance with coding requirements relating to patient care, provider participation is requested in all cases of city superintendent of schools uncertainty. Please assist us with the question(s) below: Coding Question(s): Please specify below, in your clinical opinion, the diagnosis(es) most responsible for occasioning the Inpatient admission. ( X ) Gastroparesis and SOB from Anxiety equally ( ) Gastroparesis ( ) SOB from Anxiety ( ) Other: Please Specify Physician's Response(s): Thank you Ольга Roldan Principal Diagnosis: "that condition established after study, to be chiefly responsible for occasioning the admission of the patient to the hospital for care." Co-Existing Principal Diagnosis: "when two or more diagnoses equally meet the criteria for principal diagnosis as determined by the circumstances of admission, diagnostic work up, and/or therapy provided, and the Alphabetic Index, Tabular List, or another coding guideline does not provide sequencing direction, any one of the diagnoses may be sequenced first." "When the physician has documented what appears to be a current diagnosis in the body of the record, but has not included the diagnosis in the final diagnostic statement, the physician should be asked whether the diagnosis should be added." (Source Coding Clinic 2 QTR90. p3-4) DEVENDRA
== END 2021-08-20 15:26 | DRG 392 ==
LOC: ED 08:58 → 2N 14:19 → SUATTDRO 14:19 → 2N 18:55

== ENCOUNTER 2021-12-04 09:56 | Inpatient (IN) ==
[2021-12-04] MEDS ORDERED: METOPROLOL SUCC 25MG EXT REL TAB PO STA (10:12)
--- NOTE | 2021-12-04 10:19 | Emergency Department Note ---
Impression & Plan SOB (shortness of breath), Elevated troponin, CHF (congestive heart failure) ED Provider Note NAME: KESHA CALLES AGE: 80 SEX: F : 1940 ARRIVES VIA: Ambulance INFORMANT: [Patient] ED PROVIDER(S): [Porfirio Boggs MD] CHIEF COMPLAINT: Short of breath HISTORY OF PRESENT ILLNESS: The patient is an 80-year-old female who presents complaining of shortness of breath for the last for 5 days. Things were quite a bit worse this morning. She feels short of breath with exertion and at rest. She feels very weak. The patient denies chest pain, she denies fever, she denies cough. She complains of some ongoing abdominal pain but this is chronic from an abdominal wall hernia. There has been no vomiting, no diarrhea, no urinary complaints. The patient was in our ED on the , over a week ago. She was diuresed for CHF. She had a mildly elevated high-sensitivity troponin during the visit. She declined hospitalization. Of note, the patient was noted by our nursing staff to be hypertensive, she did not take her BP meds this morning. REVIEW OF SYSTEMS: See HPI for pertinent positives and negatives. A total of ten systems were reviewed and were otherwise negative. PMHx/PSHx: See Below SOCIAL HISTORY: See Below. PHYSICAL EXAM: GENERAL: Patient is in no acute distress. HEENT: No acute trauma, normocephalic atraumatic, mucous membranes moist, no nasal congestion, no scleral icterus. NECK: No stridor, no adenopathy, no meningismus, trachea is midline. LUNGS: No wheezing or respiratory distress, she does seem to have a mildly increased respiratory rate. There are decreased breath sounds at the left base. HEART: Without murmurs gallops or rubs, regular rate and rhythm. ABDOMEN: Soft, nontender, bowel sounds positive, no peritonitis. EXTREMITIES: No cyanosis or edema, full range of motion of all the joints without pain or difficulty, no signs for acute trauma. NEUROLOGIC: Oriented x 3, no acute motor or sensory deficits, no focal weakness. SKIN: No rash, no jaundice, no diaphoresis. Pale. DIFFERENTIAL DIAGNOSIS: Reactive airway disease, pneumonia, COVID-19, pneumothorax, COPD, CHF, infection, cardiac ischemia, pulmonary embolism, bronchitis, musculoskeletal, gastrointestinal, anemia, as well as other pathologies. EMERGENCY DEPARTMENT COURSE/PROCEDURES: ECG: Indication was shortness of breath. The ECG shows a sinus rhythm with a first-degree AV block. The rate is 77. LVH is present. There are some inverted T waves in the lateral leads. There is no ST elevation. QTc is 427. Compared to an ECG from 25 November 2021, I see no significant change. Continuous Cardiac Monitoring: An order was placed for continuous cardiac monitoring. The monitor shows a rate of 79 with sinus rhythm with a first- degree AV block. MEDICAL DECISION MAKING: There is no leukocytosis or concerning anemia. There is a normal platelet count. INR is slightly elevated at 1.2. Potassium mildly low at 3.3. No renal failure. No concerning liver enzyme elevation. Chest x-ray shows some basilar congestion and cardiomegaly. Some mild CHF was suspected. BNP was elevated consistent with CHF and fluid overload. ECG showed a sinus rhythm, no acute ST elevation. Cardiac troponin testing x1 was slightly elevated, the patient reese ies a history of a mild troponin elevation. TSH was high however, the T4 was normal. Urinalysis did not suggest infection. COVID, influenza and RSV test were negative. Chest CT did not show PE, there is no pneumonia, CHF was noted. The patient presents with increasing dyspnea. Her BNP is higher than it was when she was here last. She appears to be even more fluid overloaded than during her last visit. The patient had a Dunn catheter placed. She was given 60 mg of IV Lasix. She received IV potassium. She received her normal dose of oral metoprolol succinate as she had missed this dose this morning. I talked to the patient and her family, I do think a hospital stay is warranted. The patient has agreed. I did speak with case management, the on-call hospitalist was consulted. Past Med/Surg History Medical History Anxiety CAD (coronary artery disease) Status post August 2007 PCI of both the RCA and LCX with FABIOLA Status post April 2008 PCI of the mid RCA with 2 FABIOLA Status post May 2008 PCI of the proximal LAD Status post March 2013 PCI of the RCA with a FABIOLA 7 stents total. Chronic back pain Chronic kidney disease stage 3 - monitors Dysphagia Esophageal spasm Gastroparesis GERD (gastroesophageal reflux disease) HFrEF (heart failure with reduced ejection fraction) Hyperlipidemia Hypertension Hypothyroidism Hypothyroidism Parkinson disease Parkinsons disease Prediabetes Per records Shortness of breath Surgical History History of ankle surgery LEFT History of appendectomy History of cardiac cath 08/2007, 04/2008, 2008, 2012 History of cholecystectomy Per records History of colonoscopy History of heart artery stent x7 total History of herniorrhaphy Per records History of hysterectomy History of thumb surgery Per records- right thumb Hx of angioplasty FOLLOWS [place] S/P left knee arthroscopy S/P right knee arthroscopy x2 Family History Mother Diabetes Brother Myocardial infarction Other No family history of adverse response to anesthesia Social History Smoking Status: Never smoker Second Hand Exposure: No; Hx Alcohol Use: No Hx Substance Use: No Preferred Language: [place]ian Communication Ability: Effective 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 hydrocodone AdvReac Unknown STOMACH Verified 12/04/21 13:41 IRRITATION Home Meds Home Medications Medication Instructions Recorded Confirmed atorvastatin 40 mg tablet 40 mg PO HS 06/25/19 12/04/21 melatonin 5 mg tablet 5 mg PO HS 01/07/20 12/04/21 cetirizine 10 mg tablet (Zyrtec) 10 mg PO QAM 08/16/20 12/04/21 sertraline 100 mg tablet 100 mg PO QAM 08/16/20 12/04/21 aspirin 81 mg tablet,delayed 81 mg PO QAM 09/26/20 12/04/21 release cholecalciferol (vitamin D3) 25 25 mcg PO QAM 09/26/20 12/04/21 mcg (1,000 unit) capsule (Vitamin D3) vit A 300 mcg-C 200 mg-E 27 1 tab PO QAM 09/26/20 12/04/21 mg-lutein 2 mg and minerals tablet (Ocuvite with Lutein) carbidopa 25 mg-levodopa 100 mg 1.5 tab PO QID 12/31/20 12/04/21 tablet (Sinemet) levothyroxine 112 mcg tablet 112 mcg PO QAM 12/31/20 12/04/21 sennosides 8.6 mg-docusate sodium 2 tab PO QAM 12/31/20 12/04/21 50 mg tablet (Stool Softener-Laxative) carbidopa ER 50 mg-levodopa 200 mg 1 tab PO HS 06/08/21 12/04/21 tablet,extended release cyanocobalamin (vitamin B-12) 1,000 mcg PO QPM 06/08/21 12/04/21 1,000 mcg tablet (Vitamin B-12) albuterol sulfate 90 mcg/actuation 2 puff inhalation QID 08/14/21 12/04/21 aerosol inhaler acetaminophen 325 mg tablet 975 mg PO Q4 PRN Fever Or Pain 12/04/21 12/04/21 famotidine 40 mg tablet 40 mg PO DAILY 12/04/21 12/04/21 fludrocortisone 0.1 mg tablet 0.1 mg PO QAM 12/04/21 12/04/21 furosemide 20 mg tablet 20 mg PO DAILY PRN Edema 12/04/21 12/04/21 ondansetron HCl 4 mg tablet 4 mg PO Q6 PRN Nausea 12/04/21 12/04/21 pantoprazole 40 mg tablet,delayed 40 mg PO DAILY 12/04/21 12/04/21 release polyethylene glycol 3350 17 gram 17 g PO DAILY 12/04/21 12/04/21 oral powder packet (Miralax) Previous Rx's Medication Instructions Recorded carbidopa 25 mg-levodopa 100 mg 1 tab PO DAILY PRN Tremors 30 days 08/20/21 disintegrating tablet #30 tabs metoprolol succinate 25 mg 12.5 mg PO QAM 30 days #15 tabs 08/20/21 tablet,extended release 24 hr Results & Data (ED) Vital Signs Vital Signs - 24 hr 12/04/21 09:40 12/04/21 09:40 12/04/21 09:40 Temperature 36.5 C Temperature Source Oral Pulse Rate 78 Pulse Rate [Apical] Pulse Rhythm Regular Pulse Rhythm [Apical] Pulse Strength Normal Respiratory Rate 20 Respiratory Effort / Characteristics Non-Labored Spontaneous Accessory Muscle Use Non-Labored Spontaneous Respiratory Depth Normal Normal Respiratory Pattern Regular Blood Pressure 178/102 H Blood Pressure [Left Arm] Blood Pressure Mean 127 Blood Pressure Mean [Left Arm] Pulse Oximetry 97 98 Oxygen Delivery Method Room Air Room Air Sepsis Recent Fever Within 48 Hours No Sepsis New/Unexplained Change in Mental Status N/A Sepsis Action Taken by Nursing No Action Required 12/04/21 12:34 12/04/21 12:59 Temperature Temperature Source Pulse Rate Pulse Rate [Apical] 76 Pulse Rhythm Pulse Rhythm [Apical] Regular Pulse Strength Respiratory Rate 18 Respiratory Effort / Characteristics Respiratory Depth Normal Respiratory Pattern Blood Pressure Blood Pressure [Left Arm] 162/102 H Blood Pressure Mean Blood Pressure Mean [Left Arm] 122 Pulse Oximetry 96 97 Oxygen Delivery Method Room Air Room Air Sepsis Recent Fever Within 48 Hours Sepsis New/Unexplained Change in Mental Status Sepsis Action Taken by [facility] Medications Current Medication List: was personally reviewed by me Laboratory Data Attestation: I reviewed the patient's lab results. Result diagrams: 12/04/21 10:29 12/04/21 10:29 Lab Results 12/04/21 12/04/21 12/04/21 Range/Units 10:12 10:29 10:29 WBC 6.67 (4.8-10.8) K/ul RBC 4.72 (3.93-5.22) M/uL Hgb 13.0 (12.0-16.0) g/dl Hct 40.3 (34.1-44.9) % MCV 85.4 (80.0-100.0) fL MCH 27.5 (25.0-34.0) pg MCHC 32.3 (32.0-36.0) g/dL RDW Std Deviation 46.4 H (36.4-46.3) fL RDW Coeff of Ananya 14.8 H (11.5-14.5) % Plt Count 233 (130-400) K/uL MPV 11.2 (9.4-12.3) fL Immature Gran % (Auto) 0.1 % Neut % (Auto) 72.6 % Lymph % (Auto) 16.9 % [place] % (Auto) 8.5 % Eos % (Auto) 1.3 % Baso % (Auto) 0.6 % Neut # (Auto) 4.83 (1.4-6.5) K/uL Lymph # (Auto) 1.13 L (1.2-3.4) K/uL [place] # (Auto) 0.57 (0.24-0.82) K/uL Eos # (Auto) 0.09 (0-0.50) K/uL Baso # (Auto) 0.04 (0-0.2) K/uL Immature Gran # (Auto) 0.01 (0.00-0.02) K/uL PT (9.0-12.0) Seconds INR (0.9-1.1) APTT (21.0-31.0) Seconds PTT Ratio Sodium 140 (136-145) mmol/L Potassium 3.3 L (3.5-5.1) mmol/L Chloride 102 (98-107) mmol/L Carbon Dioxide 28 (21-32) mmol/L Anion Gap 10 (3-11) BUN 12 (6-23) mg/dl Creatinine 0.96 (0.6-1.2) mg/dl Est Cr Clr Drug Dosing 32.5 ml/min Est GFR ( Amer) 63.8 ml/min Est GFR (Non-Af Amer) 55.1 ml/min BUN/Creatinine Ratio 12.5 (10-20) Glucose 114 H (70-99(Fasting)) mg/dl Calcium 9.5 (8.5-10.1) mg/dl Magnesium 1.9 (1.7-2.4) mg/dl Total Bilirubin 1.1 H (0.2-1.0) mg/dl AST 10 L (13-39) U/L ALT < 3 L (7-52) U/L Alkaline Phosphatase 54 (34-104) U/L Troponin I High Sens 54.6 H* (0-14) pg/ml B-Natriuretic Peptide (0-100) pg/ml Total Protein 6.6 (6.0-8.3) gm/dl Albumin 4.4 (3.4-5.0) gm/dl Globulin 2.2 L (2.5-4.0) gm/dl Albumin/Globulin Ratio 2.0 (0.9-2) TSH (0.300-4.500) uIu/ml Free T4 (0.61-1.60) ng/dl SARS-CoV-2 (PCR) NEGATIVE (Negative) Influenza Type A (PCR) Negative (Neg) Influenza Type B (PCR) Negative (Neg) RSV (RT-PCR) Negative (Neg) 12/04/21 12/04/21 12/04/21 Range/Units 10:29 10:29 10:29 WBC (4.8-10.8) K/ul RBC (3.93-5.22) M/uL Hgb (12.0-16.0) g/dl Hct (34.1-44.9) % MCV (80.0-100.0) fL MCH (25.0-34.0) pg MCHC (32.0-36.0) g/dL RDW Std Deviation (36.4-46.3) fL RDW Coeff of Ananya (11.5-14.5) % Plt Count (130-400) K/uL MPV (9.4-12.3) fL Immature Gran % (Auto) % Neut % (Auto) % Lymph % (Auto) % [place] % (Auto) % Eos % (Auto) % Baso % (Auto) % Neut # (Auto) (1.4-6.5) K/uL Lymph # (Auto) (1.2-3.4) K/uL [place] # (Auto) (0.24-0.82) K/uL Eos # (Auto) (0-0.50) K/uL Baso # (Auto) (0-0.2) K/uL Immature Gran # (Auto) (0.00-0.02) K/uL PT 12.2 H (9.0-12.0) Seconds INR 1.2 H (0.9-1.1) APTT 22.1 (21.0-31.0) Seconds PTT Ratio 0.8 Sodium (136-145) mmol/L Potassium (3.5-5.1) mmol/L Chloride (98-107) mmol/L Carbon Dioxide (21-32) mmol/L Anion Gap (3-11) BUN (6-23) mg/dl Creatinine (0.6-1.2) mg/dl Est Cr Clr Drug Dosing ml/min Est GFR ( Amer) ml/min Est GFR (Non-Af Amer) ml/min BUN/Creatinine Ratio (10-20) Glucose (70-99(Fasting)) mg/dl Calcium (8.5-10.1) mg/dl Magnesium (1.7-2.4) mg/dl Total Bilirubin (0.2-1.0) mg/dl AST (13-39) U/L ALT (7-52) U/L Alkaline Phosphatase (34-104) U/L Troponin I High Sens (0-14) pg/ml B-Natriuretic Peptide 937 H (0-100) pg/ml Total Protein (6.0-8.3) gm/dl Albumin (3.4-5.0) gm/dl Globulin (2.5-4.0) gm/dl Albumin/Globulin Ratio (0.9-2) TSH 34.873 H (0.300-4.500) uIu/ml Free T4 0.90 (0.61-1.60) ng/dl SARS-CoV-2 (PCR) (Negative) Influenza Type A (PCR) (Neg) Influenza Type B (PCR) (Neg) RSV (RT-PCR) (Neg) Administered Medications Carbidopa/Levodopa (Carbidopa/Levodopa 25/100mg Tab) 1.5 tab PO QID JESUS Stop: 01/03/22 16:59 Last Admin: 12/04/21 16:42 Dose: 1.5 tab Documented By: OLIVIA Pantoprazole Sodium (Pantoprazole 40 Mg Tab) 40 mg PO DAILY JESUS Stop: 01/03/22 15:24 Last Admin: 12/04/21 16:40 Dose: 40 mg Documented By: OLIVIA Sertraline HCl (Sertraline Hcl 100 Mg Tablet) 100 mg PO QAM JESUS Stop: 01/03/22 15:24 Last Admin: 12/04/21 16:41 Dose: 100 mg Documented By: OLIVIA Discontinued Medications Furosemide (Furosemide 40 Mg/4 Ml Vial) 60 mg IV NOW STA Stop: 12/04/21 11:18 Last Admin: 12/04/21 11:55 Dose: 60 mg Documented By: CATHY Potassium Chloride ([place] / Wtr) 10 meq in 100 mls @ 100 mls/hr IV ONE ONE; Protocol Stop: 12/04/21 12:16 Last Infusion: 12/04/21 14:30 Dose: 0 mls/hr Documented By: Admin: 12/04/21 12:31 Dose: 100 mls/hr Documented By: KV Ioversol (Optiray 320 125ml) 120 ml IV ONCE ONE Stop: 12/04/21 12:16 Last Admin: 12/04/21 12:16 Dose: 120 ml Documented By: KSF Metoprolol Succinate (Metoprolol Succ 25mg Ext Rel Tab) 12.5 mg PO NOW STA Stop: 12/04/21 10:13 Last Admin: 12/04/21 11:54 Dose: 12.5 mg Documented By: KV Potassium Chloride (Potassium Chloride 20 Meq/15 Ml Udc) 40 meq PO NOW STA Stop: 12/04/21 15:26 Last Admin: 12/04/21 16:45 Dose: 40 meq Documented By: AKL Imaging Data Radiologist's Impression: Chest X-Ray 12/04/21 10:12 XR chest 1V portable HISTORY: 80 years-old Female Dyspnea acute shortness of breath COMPARISON: 11/25/2021 TECHNIQUE: Portable AP view of the chest FINDINGS: Cardiac silhouette is enlarged. Pulmonary vascular congestion. No pneumothorax. Probable small pleural effusions with mild bibasilar densities. Degenerative changes of the shoulders and spine. IMPRESSION: 1. Cardiomegaly with pulmonary vascular congestion. 2. Probable small pleural effusions with bibasilar bibasilar opacities. ACT 112: Negative or not required by law. The above report was generated using voice recognition software. It may contain grammatical, syntax or spelling errors. Electronically signed by: Lucas Grullon M.D. 12/04/2021 10:47 AM Chest CTA 12/04/21 10:40 CHEST CTA for PULMONARY ARTERIES CT DOSE: 586.38 mGycm HISTORY: Shortness of breath. TECHNIQUE: Multiaxial CT images of the chest were performed following the intravenous administration of contrast to evaluate the pulmonary arteries. Maximal intensity projection images were also obtained. A dose lowering techniq ue was utilized adhering to the principles of ALARA. COMPARISON STUDY: Chest CT 09/26/2020. FINDINGS: There is motion artifact as well as streak artifact from the patient's overlapping arms. This results in nondiagnostic evaluation of the majority of the segmental and subsegmental pulmonary arteries within the lungs. The remaining central pulmonary arteries show no filling defects to suggest a pulmonary embolus. The heart is moderately enlarged. This has progressed in the interval. Small to moderate bilateral pleural effusions. Normal caliber thoracic aorta with mild calcified plaque. Inadequate contrast to assess for an aortic dissection. Severe calcified plaque within the coronary arteries. The visualized liver, spleen, and adrenal glands are unremarkable. There is a small hiatus hernia. No mediastinal or hilar lymphadenopathy. Mild body wall edema. No fractures within the visualized osseous structures. No pneumothorax. The central airways are patent. There is diffuse interlobular septal thickening consistent with pulmonary edema. Patchy and linear bibasilar densities are nonspecific but favor atelectasis. This most pronounced within the medial right lung base. IMPRESSION: 1. No evidence for central pulmonary embolus. 2. Pulmonary edema with cardiomegaly and small to moderate bilateral pleural effusions. 3. Patchy bibasilar densities are nonspecific but favor atelectasis. A pneumonia could also have a similar appearance in the appropriate clinical setting. 4. Small hiatus hernia. ACT 112: Negative or not required by law. Electronically signed by: Camilo Lr M.D. 12/04/2021 12:32 PM Discharge Plan Visit Data Chief Complaint: Shortness of Breath/Dyspnea ED Provider: Porfirio Boggs Discharge Problem: SOB (shortness of breath), Elevated troponin, CHF (congestive heart failure) Patient Disposition: Admitted As Inpatient Condition: Fair Discharge Instructions Interventions: ED Discharge Assessment Last Done: 12/04/21 14:44
[2021-12-04 10:44] LABS: Basophils # (auto) 0.04 K/uL (0-0.2); Basophils % (auto) 0.6 %; Eosinophils # (auto) 0.09 K/uL (0-0.50); Eosinophils % (auto) 1.3 %; Hematocrit (blood only) 40.3 % (34.1-44.9); Immature Granulocytes # (auto) 0.01 K/uL (0.00-0.02); Immature Granulocytes % (auto) 0.1 %; Lymphocytes # (auto) 1.13 K/uL (1.2-3.4); Lymphocytes % (auto) 16.9 %; Mean Corpuscular Hemoglobin 27.5 pg (25.0-34.0); Mean Corpuscular Hgb Conc 32.3 g/dL (32.0-36.0); Mean Corpuscular Volume 85.4 fL (80.0-100.0); Mean Platelet Volume 11.2 fL (9.4-12.3); Monocytes # (auto) 0.57 K/uL (0.24-0.82); Monocytes % (auto) 8.5 %; Neutrophils # (auto) 4.83 K/uL (1.4-6.5); Neutrophils % (auto) 72.6 %; Platelet Count 233 K/uL (130-400); RDW Coefficient of Variation 14.8 % (11.5-14.5); RDW Standard Deviation 46.4 fL (36.4-46.3); Red Blood Count 4.72 M/uL (3.93-5.22); White Blood Count 6.67 K/ul (4.8-10.8)
--- NOTE | 2021-12-04 10:48 | XRay Report ---
XR chest 1V portable HISTORY: 80 years-old Female Dyspnea acute shortness of breath COMPARISON: 11/25/2021 TECHNIQUE: Portable AP view of the chest FINDINGS: Cardiac silhouette is enlarged. Pulmonary vascular congestion. No pneumothorax. Probable small pleura l effusions with mild bibasilar densities. Degenerative changes of the shoulders and spine. IMPRESSION: 1. Cardiomegaly with pulmonary vascular congestion. 2. Probable small pleural effusions with bibasilar bibasilar opacities. ACT 112: Negative or not required by law. The above report was generated using voice recognition software. It may contain grammatical, syntax o r spelling errors. Electronically signed by: Lucas Grullon M.D. 12/04/2021 10:47 AM
[2021-12-04 10:58] LABS: INR 1.2 (0.9-1.1); Partial Thromboplastin Ratio 0.8; Partial Thromboplastin Time 22.1 Seconds (21.0-31.0); Prothrombin Time 12.2 Seconds (9.0-12.0)
[2021-12-04 11:09] LABS: Anion Gap 10 (3-11); BUN Creatinine Ratio 12.5 (10-20); Blood Urea Nitrogen 12 mg/dl (6-23); Calcium 9.5 mg/dl (8.5-10.1); Carbon Dioxide 28 mmol/L (21-32); Chloride 102 mmol/L (98-107); Creatinine Clr Calc Pharmacy 32.5 ml/min; Est GFR (African American) 63.8 ml/min; Est GFR (Non-African American) 55.1 ml/min; Glucose 114 mg/dl (70-99(Fasting)); Potassium 3.3 mmol/L (3.5-5.1); Sodium 140 mmol/L (136-145)
[2021-12-04 11:10] LABS: Alanine Aminotransferase < 3 U/L (7-52); Albumin Level 4.4 gm/dl (3.4-5.0); Alkaline Phosphatase 54 U/L (34-104); Aspartate Aminotransferase 10 U/L (13-39); Bilirubin,Total 1.1 mg/dl (0.2-1.0); Globulin 2.2 gm/dl (2.5-4.0); Magnesium 1.9 mg/dl (1.7-2.4); Total Protein 6.6 gm/dl (6.0-8.3)
[2021-12-04] MEDS ORDERED: POTASSIUM CHLORIDE / WTR 10 MEQ/100 ML PLCT IV ONE (11:17)
[2021-12-04] MEDS ORDERED: FUROSEMIDE 40 MG/4 ML VIAL IV STA (11:17)
[2021-12-04 11:21] LABS: Thyroid Stimulating Hormone 34.873 uIu/ml (0.300-4.500)
[2021-12-04 11:23] LABS: Troponin I High Sensitivity 54.6 pg/ml (0-14)
[2021-12-04 11:26] LABS: Influenza A virus by PCR Negative (Neg); Influenza B virus by PCR Negative (Neg); RSV by PCR Negative (Neg); SARS CoV2 RNA(COVID-19) InHosp NEGATIVE (Negative)
[2021-12-04 11:54] LABS: T4 Free Thyroxine 0.9 ng/dl (0.61-1.60)
[2021-12-04] MEDS ORDERED: OPTIRAY 320 125ml IV ONE (12:15)
--- NOTE | 2021-12-04 12:33 | CT Scan Report ---
CHEST CTA for PULMONARY ARTERIES CT DOSE: 586.38 mGycm HISTORY: Shortness of breath. TECHNIQUE: Multiaxial CT images of the chest were performed following the intravenous administration of contrast to evaluate the pulmonary arteries. Maximal intensity projection images were also obtaine d. A dose lowering technique was utilized adhering to the principles of ALARA. COMPARISON STUDY: Chest CT 09/26/2020. FINDINGS: There is motion artifact as well as streak artifact from the patient's overlapping arms. Th is results in nondiagnostic evaluation of the majority of the segmental and subsegmental pulmonary ar teries within the lungs. The remaining central pulmonary arteries show no filling defects to suggest a pulmonary embolus. The heart is moderately enlarged. This has progressed in the interval. Small to moderate bilateral pleural effusions. Normal caliber thoracic aorta with mild calcified plaque. Inade quate contrast to assess for an aortic dissection. Severe calcified plaque within the coronary arteri es. The visualized liver, spleen, and adrenal glands are unremarkable. There is a small hiatus hernia . No mediastinal or hilar lymphadenopathy. Mild body wall edema. No fractures within the visualized o sseous structures. No pneumothorax. The central airways are patent. There is diffuse interlobular sep adarsh thickening consistent with pulmonary edema. Patchy and linear bibasilar densities are nonspecific but favor atelectasis. This most pronounced within the medial right lung base. IMPRESSION: 1. No evidence for central pulmonary embolus. 2. Pulmonary edema with cardiomegaly and small to moderate bilateral pleural effusions. 3. Patchy bibasilar densities are nonspecific but favor atelectasis. A pneumonia could also have a si milar appearance in the appropriate clinical setting. 4. Small hiatus hernia. ACT 112: Negative or not required by law. Electronically signed by: Camilo Lr M.D. 12/04/2021 12:32 PM
--- NOTE | 2021-12-04 12:52 | History & Physical Report ---
Date of Service December 04, 2021 Assessment & Plan (1) HFrEF (heart failure with reduced ejection fraction): (2) Shortness of breath: (3) Elevated troponin: (4) Gastroparesis: (5) Congestive heart failure: (6) Parkinsons disease: (7) Hypothyroidism: (8) CAD (coronary artery disease): Plan Ms. Serrano is an 80 year old female who presented to the [facility] from home with SOB that has been occurring x5 days. She was recently admitted for HFrEF and was discharged from here on November 25. Heart Failure with reduced EF: Elevated Troponin: CAD: -Last admission Troponin elevated 54; now, 56. Will trend Troponin levels Q6. Troponin was bumped last admission; it is assumed this is related to pulmonary congestion compared with an AMI. -Pt with H/O PCI x 7 stents 2007. (sees Haley West PA-C OPT) -Pt with SOB x5 days. -CXR with small pleural effusions and congestion. -Recent Echo EF: 30-35% from last admission. -Recent ER visit and DC on 11/25 -Received 1 dose of Lasix in ED; -Will order Lasix 20 mg IV BID; reevaluate fluid status while admitted. -K+ 3.3 in ED; K+ rider x1 administered; will order Potassium Elixer (due to dysphagia of large pills) 40mEq once and recheck K+ level at 2100. -I/O checks; recheck BMP/CBC in AM. Parkinsons Disease: -Diagnosed 13 years ago. -Per patient and family she appears to be worsening with her memory and ability to perform IADL's. -She has recently started to use weighted silverware. -Pt and family considering transitioning to a [facility]; no formal process has been started. -Speech Therapy and PT/OT ordered. -bedside swallow to clear for meds/meals; formal ST eval to follow. Gastroparesis: -Follows Mahesh Cyrus with GI and has received Botox injection June 2021 -Due for phone follow up tomorrow 12/05; I did notify provider of her being admitted. Hypothyroidism: -TSH on admission 35.8 -Takes Synthroid 112mcg daily; will increase Synthroid to 125mcg and recc f/u opt for recheck in 6 weeks. Dispo: -DNR/DNI in the event of cardiac or respiratory arrest. -Pt does have an Advanced Directive; not on file. -POA: Daughter, Marleni. -Goal to return home at [place] -Pt does live in a one story home with one step entry with her Martir and their dog, Debra. is relatively independent. Per discussion with pt and daughter Kacie at bedside they have been entertaining the idea of moving to [facility]. Pt does receive services from [employer] [facility], [employer] and does have assistance with in home cleaning and bathing once per week. Case management to follow. History of Present Illness Chief Complaint: shortness of breath Primary Care Provider: Leonora Flower PA-C Ms. Serrano is an 80 year old female who presented to the [facility] from home with SOB that has been occurring x5 days. She was recently admitted for HFrEF and was discharged from here on November 25. She has significant PMH that includes: CAD with history of PCI x7, cardiomyopathy with EF 30 to 35%, diastolic CHF, HTN, HLD, hypothyroidism, Parkinson's disease, prediabetes, GERD, gastroparesis status post EGD and Botox June 2021, macular degeneration, depression, history of SDH and ataxia. She is accompanied by her daughter Kacie who is at her bedside. Both the patient and daughter report that she has been increasingly SOB x multiple months. She does see Haley Garcia as cardiology opt. She reports that she has been having a harder time with her ADL's over the past few months and now her shortness of breath is occurring at rest. She has been treated for gastroparesis by Mahesh Bridges and received a Botox injection with relief in June 2021. She states that she is compliant with her medications; however, has not taken them this morning. Her troponin level was 54 this morning, but her EKG remains unchanged from her last admission and no acute signs of an IA. A CXR revealed no infectious origin of her symptoms; rather a hiatal hernia and also small pleural effusions. In ED patient remained hemodynamically stable and on RA. Her CBC and CMP was generally unremarkable. She did have mild hypokalemia at 3.3 for which she received one K+ rider. Her BNP was more elevated than last admission; [phone]. She has been reluctant to admission more recently; however, was ammenable for admission to the hospital for closer medical monitoring and treatment. To note that she lives in a one story home with her Martir and has been having family discussions regarding transitioning to live at a [facility]. She will be admitted to med/surg telemtery for mild decompensation of CHF. Allergies Allergy/AdvReac Type Severity Reaction Status Date / Time celecoxib AdvReac Intermediate GI SYMPTOMS Verified 12/04/21 13:41 aspirin AdvReac Mild Gastrointestinal Verified 12/04/21 13:41 Upset with 325mg dose. hydrocodone AdvReac Unknown STOMACH Verified 12/04/21 13:41 IRRITATION Home Medications Medication Instructions Recorded Confirmed Type atorvastatin 40 mg tablet 40 mg PO HS 06/25/19 12/04/21 History melatonin 5 mg tablet 5 mg PO HS 01/07/20 12/04/21 History cetirizine 10 mg tablet (Zyrtec) 10 mg PO QAM 08/16/20 12/04/21 History sertraline 100 mg tablet 100 mg PO QAM 08/16/20 12/04/21 History aspirin 81 mg tablet,delayed 81 mg PO QAM 09/26/20 12/04/21 History release cholecalciferol (vitamin D3) 25 25 mcg PO QAM 09/26/20 12/04/21 History mcg (1,000 unit) capsule (Vitamin D3) vit A 300 mcg-C 200 mg-E 27 1 tab PO QAM 09/26/20 12/04/21 History mg-lutein 2 mg and minerals tablet (Ocuvite with Lutein) carbidopa 25 mg-levodopa 100 mg 1.5 tab PO QID 12/31/20 12/04/21 History tablet (Sinemet) levothyroxine 112 mcg tablet 112 mcg PO QAM 12/31/20 12/04/21 History sennosides 8.6 mg-docusate sodium 2 tab PO QAM 12/31/20 12/04/21 History 50 mg tablet (Stool Softener-Laxative) carbidopa ER 50 mg-levodopa 200 mg 1 tab PO HS 06/08/21 12/04/21 History tablet,extended release cyanocobalamin (vitamin B-12) 1,000 mcg PO QPM 06/08/21 12/04/21 History 1,000 mcg tablet (Vitamin B-12) albuterol sulfate 90 mcg/actuation 2 puff inhalation QID 08/14/21 12/04/21 History aerosol inhaler carbidopa 25 mg-levodopa 100 mg 1 tab PO DAILY PRN Tremors 30 days 08/20/21 12/04/21 Rx disintegrating tablet #30 tabs metoprolol succinate 25 mg 12.5 mg PO QAM 30 days #15 tabs 08/20/21 12/04/21 Rx tablet,extended release 24 hr acetaminophen 325 mg tablet 975 mg PO Q4 PRN Fever Or Pain 12/04/21 12/04/21 History famotidine 40 mg tablet 40 mg PO DAILY 12/04/21 12/04/21 History fludrocortisone 0.1 mg tablet 0.1 mg PO QAM 12/04/21 12/04/21 History furosemide 20 mg tablet 20 mg PO DAILY PRN Edema 12/04/21 12/04/21 History ondansetron HCl 4 mg tablet 4 mg PO Q6 PRN Nausea 12/04/21 12/04/21 History pantoprazole 40 mg tablet,delayed 40 mg PO DAILY 12/04/21 12/04/21 History release polyethylene glycol 3350 17 gram 17 g PO DAILY 12/04/21 12/04/21 History oral powder packet (Miralax) Past Med/Surg History Medical History Anxiety CAD (coronary artery disease) Status post August 2007 PCI of both the RCA and LCX with FABIOLA Status post April 2008 PCI of the mid RCA with 2 FABIOLA Status post May 2008 PCI of the proximal LAD Status post March 2013 PCI of the RCA with a FABIOLA 7 stents total. Chronic back pain Chronic kidney disease stage 3 - monitors Dysphagia Esophageal spasm Gastroparesis GERD (gastroesophageal reflux disease) HFrEF (heart failure with reduced ejection fraction) Hyperlipidemia Hypertension Hypothyroidism Hypothyroidism Parkinson disease Parkinsons disease Prediabetes Per records Shortness of breath Surgical History History of ankle surgery LEFT History of appendectomy History of cardiac cath 08/2007, 04/2008, 2008, 2012 History of cholecystectomy Per records History of colonoscopy History of heart artery stent x7 total History of herniorrhaphy Per records History of hysterectomy History of thumb surgery Per records- right thumb Hx of angioplasty FOLLOWS [place] S/P left knee arthroscopy S/P right knee arthroscopy x2 Family History Mother Diabetes Brother Myocardial infarction Other No family history of adverse response to anesthesia Social History Smoking Status: Never smoker Second Hand Exposure: No; Hx Alcohol Use: No Hx Substance Use: No Preferred Language: Sami Communication Ability: Effective Trace Clerk Required: No Beliefs That Will Affect Care: None marital status: Current Living Situation: Spouse Feels Safe at Home: Yes Assistive Devices: Cane, Walker and Other Review of Systems Review of Systems: Neuro: (-) dizziness, falls, trauma. (+) cognitive changes HEENT: (-) blurry or dbl vision. (+) dysphagia CV: (-) chest pain, palpitations, swelling Resp: (+) SOB GI: (-) abdominal pain, N/V/D. (-) appetite changes. : (-) urinary changes Musculoskeletal: (+) worsening gait. (+) tremors Psych: (-) anxiety, depression Physical Exam Constitutional: + frail appearing, cooperative and comfortable ENMT: Mouth: + dry oral mucous membranes Throat: uvula midline Respiratory: + cough (non productive ), able to speak in complete sentences and symmetric chest movement; no labored breathing, does not use accessory muscles and no audible wheezes Auscultation: + diminished lung sounds and + crackles (bases ); no wheezes Cardiovascular: Rate/Rhythm: regular rate and regular rhythm Heart Sounds: normal S1 and normal S2 Extremities: normal capillary refill; no pedal edema Gastrointestinal (Abdomen): Inspection/Auscultation: abdomen normal to inspection and normal bowel sounds Skin: normal turgor and + pallor; no mottling Psychiatric: Orientation: alert and oriented x 3 Affect: euthymic affect Insight: good insight Judgement: good judgement Lymphatic: no cervical or axillary lymphadenopathy Results & Data Results & Data ([facility]) Vital Signs (Past 12 Hours) Vital Signs Temp Pulse Resp BP Pulse Ox O2 Del Method 12/04/21 12:34 96 Room Air 12/04/21 09:40 98 Room Air 12/04/21 09:40 36.5 C 78 20 178/102 H 97 Room Air Laboratory Results Short CBC 12/04/21 Range/Units 10:29 WBC 6.67 (4.8-10.8) K/ul Hgb 13.0 (12.0-16.0) g/dl Hct 40.3 (34.1-44.9) % Plt Count 233 (130-400) K/uL BMP 12/04/21 10:29 Sodium 140 Potassium 3.3 L Chloride 102 Carbon Dioxide 28 BUN 12 Creatinine 0.96 Glucose 114 H Calcium 9.5 Liver Function 12/04/21 Range/Units 10:29 Total Bilirubin 1.1 H (0.2-1.0) mg/dl AST 10 L (13-39) U/L ALT < 3 L (7-52) U/L Alkaline Phosphatase 54 (34-104) U/L Albumin 4.4 (3.4-5.0) gm/dl Diagnostic Findings Chest X-Ray 12/04/21 10:12 XR chest 1V portable HISTORY: 80 years-old Female Dyspnea acute shortness of breath COMPARISON: 11/25/2021 TECHNIQUE: Portable AP view of the chest FINDINGS: Cardiac silhouette is enlarged. Pulmonary vascular congestion. No pneumothorax. Probable small pleural effusions with mild bibasilar densities. Degenerative changes of the shoulders and spine. IMPRESSION: 1. Cardiomegaly with pulmonary vascular congestion. 2. Probable small pleural effusions with bibasilar bibasilar opacities. ACT 112: Negative or not required by law. The above report was generated using voice recognition software. It may contain grammatical, syntax or spelling errors. Electronically signed by: Lucas Grullon M.D. 12/04/2021 10:47 AM Chest CTA 12/04/21 10:40 CHEST CTA for PULMONARY ARTERIES CT DOSE: 586.38 mGycm HISTORY: Shortness of breath. TECHNIQUE: Multiaxial CT images of the chest were performed following the intravenous administration of contrast to evaluate the pulmonary arteries. Maximal intensity projection images were also obtained. A dose lowering technique was utilized adhering to the principles of ALARA. COMPARISON STUDY: Chest CT 09/26/2020. FINDINGS: There is motion artifact as well as streak artifact from the patient's overlapping arms. This results in nondiagnostic evaluation of the majority of the segmental and subsegmental pulmonary arteries within the lungs. The remaining central pulmonary arteries show no filling defects to suggest a pulmonary embolus. The heart is moderately enlarged. This has progressed in the interval. Small to moderate bilateral pleural effusions. Normal caliber thoracic aorta with mild calcified plaque. Inadequate contrast to assess for an aortic dissection. Severe calcified plaque within the coronary arteries. The visualized liver, spleen, and adrenal glands are unremarkable. There is a small hiatus hernia. No mediastinal or hilar lymphadenopathy. Mild body wall edema. No fractures within the visualized osseous structures. No pneumothorax. The central airways are patent. There is diffuse interlobular septal thickening consistent with pulmonary edema. Patchy and linear bibasilar densities are nonspecific but favor atelectasis. This most pronounced within the medial right lung base. IMPRESSION: 1. No evidence for central pulmonary embolus. 2. Pulmonary edema with cardiomegaly and small to moderate bilateral pleural effusions. 3. Patchy bibasilar densities are nonspecific but favor atelectasis. A pneumonia could also have a similar appearance in the appropriate clinical setting. 4. Small hiatus hernia. ACT 112: Negative or not required by law. Electronically signed by: Camilo Lr M.D. 12/04/2021 12:32 PM ECG Additional Comments: 77 BPM Atrial Rate : 077 BPM P-R Int : 212 ms QRS Dur : 096 ms QT Int : 378 ms P-R-T Axes : 073 -46 168 degrees QTc Int : 427 ms Sinus rhythm with 1st degree A-V block Left anterior fascicular block Incomplete right bundle branch block Left ventricular hypertrophy with repolarization abnormality Abnormal ECG When compared with ECG 11/25/21 Incomplete right bundle branch block is now Present Code Status & VTE Plan Code Status DNR/DNI in the event of cardiac or respiratory arrest. Pt does have an Advanced Directive; not on file. POA: Daughter, Marleni. VTE Prophylaxis Plan VTE Prophylaxis will be ordered: Yes Supervising Physician Co-Signing Physician Notes Attending addendum: The patient was seen and examined in emergency room in presence of the daughter She has been complaining of increasing shortness of breath for the last 5 days associated with chest heaviness and also nausea Denies any significant chest pain, no increasing leg swelling Apparently she was in the ER on of this month with persistent cough and inability to clear secretions and was sent home on the same day On examination Anxious with minimal distress due to abdominal discomfort Hemodynamically stable Has been requiring 2 L of oxygen to maintain saturation Chest-minimal bibasilar crackles more on the left than the right Heart-S1-S2, regular with a 2/6 ESM over precordium Abdomensoft, nondistended, mildly tender in the epigastrium Extremities-trace edema bilaterally 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 Generally weak She has resting tremors involving the bilateral hands and upper extremity Her admission labs, EKG and imaging studies reviewed Has congestive changes in the chest x-ray with hiatal hernia, increasing BNP and hypokalemia Received a small dose of Lasix of 20 mg IV in the emergency room and will continue twice daily Her thyroid medications will be increased to 125 mcg She may need a GI evaluation as that was planned as an outpatient Agree with assessment and plan as outlined above by Nathalie Sutherland (1) Congestive heart failure Heart failure chronicity: acute on chronic Heart failure type: systolic Qualified Code(s): I50.23 - Acute on chronic systolic (congestive) heart failure
--- NOTE | 2021-12-04 14:41 | Electrocardiogram Report ---
Test Reason : Blood Pressure : / mmHG Vent. Rate : 077 BPM Atrial Rate : 077 BPM P-R Int : 212 ms QRS Dur : 096 ms QT Int : 378 ms P-R-T Axes : 073 -46 168 degrees QTc Int : 427 ms Sinus rhythm with 1st degree A-V block Left anterior fascicular block Incomplete right bundle branch block Left ventricular hypertrophy with repolarization abnormality Abnormal ECG When compared with ECG of 25-NOV-2021 09:28, Incomplete right bundle branch block is now Present Confirmed by Alex Kunz ([id number]) on 12/04/2021 2:40:53 PM Referred By: REFERRED SELF Confirmed By:Alex Kunz
[2021-12-04] MEDS ORDERED: POTASSIUM CHLORIDE 20 MEQ/15 ML UDC PO STA (15:25)
[2021-12-04] MEDS ORDERED: ACETAMINOPHEN 325 MG TAB PO PRN (15:25)
[2021-12-04] MEDS ORDERED: CARBIDOPA/LEVODOPA 25/100MG TAB ODT PO PRN (15:25)
[2021-12-04] MEDS ORDERED: FUROSEMIDE 20 MG TAB PO PRN (15:25)
[2021-12-04] MEDS ORDERED: ONDANSETRON 4 MG OD TAB PO PRN (15:37)
[2021-12-04 15:52] LABS: Appearance Urine Clear (Clear); Bacteria Urine Automated Negative (Negative); Bilirubin Urine Negative (Negative); Blood Urine Negative (Negative); Cast Urine Automated 0 /lpf (0-5); Color Urine Yellow; Glucose Urine UA Negative (Negative); Ketones Urine Negative (Negative); Leukocyte Esterase Urine Trace (Negative); Nitrite Urine Negative (Negative); Protein Urine Negative (Negative); RBC Urine Automated 0-4 /hpf (0-4); Specific Gravity Urine 1.011 (1.000-1.030); Urobilinogen Urine Negative (Negative); pH Urine 7.5 (4.5-7.5)
[2021-12-04] MEDS: PANTOprazole 40 MG TAB PO SCH (16:40)
[2021-12-04] MEDS: SERTRALINE HCL 100 MG TABLET PO SCH (16:41)
[2021-12-04] MEDS: CARBIDOPA/LEVODOPA 25/100MG TAB PO SCH ×2 (16:42→20:52)
[2021-12-04] MEDS: ALBUTEROL HFA 8 GM INHALER INH SCH ×2 (17:55→20:17)
[2021-12-04] MEDS ORDERED: ALBUTEROL HFA 8 GM INHALER INH PRN (20:18)
[2021-12-04] MEDS: CYANOCOBALAMIN (B-12) 500 MCG TABLET PO SCH (20:52)
[2021-12-04] MEDS: ATORVASTATIN 40 MG TAB PO SCH (20:52)
[2021-12-04] MEDS: CARBIDOPA/LEVODOPA 50/200MG EXT REL TAB PO SCH (20:52)
[2021-12-04] MEDS: MELATONIN 3 MG TAB PO SCH (20:52)
[2021-12-04] MEDS: HEPARIN SOD 5,000 UNIT/0.5 ML VIAL SQ SCH (20:54)
[2021-12-04 23:51] LABS: Troponin I High Sensitivity 88.8 pg/ml (0-14)
[2021-12-05 00:13] LABS: Potassium 3.3 mmol/L (3.5-5.1)
[2021-12-05 05:42] LABS: Hematocrit (blood only) 39.6 % (34.1-44.9); Hemoglobin 12.9 g/dl (12.0-16.0); Mean Corpuscular Hgb Conc 32.6 g/dL (32.0-36.0); Mean Corpuscular Volume 85.9 fL (80.0-100.0); Mean Platelet Volume 10.9 fL (9.4-12.3); Platelet Count 179 K/uL (130-400); RDW Coefficient of Variation 14.8 % (11.5-14.5); RDW Standard Deviation 46.8 fL (36.4-46.3); Red Blood Count 4.61 M/uL (3.93-5.22); White Blood Count 6.73 K/ul (4.8-10.8)
[2021-12-05] MEDS: LEVOTHYROXINE SODIUM 125 MCG TABLET PO SCH (05:52)
[2021-12-05 06:13] LABS: Calcium 8.8 mg/dl (8.5-10.1); Creatinine Clr Calc Pharmacy 34.3 ml/min; Est GFR (African American) 60.8 ml/min; Est GFR (Non-African American) 52.4 ml/min; Potassium 3.5 mmol/L (3.5-5.1)
[2021-12-05] MEDS: CARBIDOPA/LEVODOPA 25/100MG TAB PO SCH ×4 (08:37→21:42)
[2021-12-05] MEDS: DOCUSATE SODIUM/SENNA 50/8.6MG TAB PO SCH (08:37)
[2021-12-05] MEDS: SERTRALINE HCL 100 MG TABLET PO SCH (08:38)
[2021-12-05] MEDS: PANTOprazole 40 MG TAB PO SCH (08:38)
[2021-12-05] MEDS: FLUDROCORTISONE ACETATE 0.1 MG TAB PO SCH (08:38)
[2021-12-05] MEDS: ASPIRIN 81 MG ECTAB PO SCH (08:38)
[2021-12-05] MEDS: CETIRIZINE HCL 10 MG TABLET PO SCH (08:38)
[2021-12-05] MEDS: HEPARIN SOD 5,000 UNIT/0.5 ML VIAL SQ SCH ×4 (08:39→21:43)
[2021-12-05] MEDS: CEROVITE ADV FORMULA TAB PO SCH (08:39)
[2021-12-05] MEDS: METOPROLOL SUCC 25MG EXT REL TAB PO SCH (08:39)
[2021-12-05] MEDS: FAMOTIDINE 40 MG TABLET PO SCH (08:39)
[2021-12-05] MEDS: POLYETHYLENE (MIRALAX) 17 GM PACK PO SCH (08:39)
[2021-12-05] MEDS: CHOLECALCIFEROL 1,000 UNITS 25 MCG TAB PO SCH (08:39)
--- NOTE | 2021-12-05 09:30 | XRay Report ---
XR chest 1V portable HISTORY: shortness of breath COMPARISON: Chest 12/04/2021. FINDINGS: No pneumothorax. The heart remains moderately enlarged. Mild interstitial pulmonary edema, small bilateral pleural fusions, and patchy bibasilar densities have slightly improved. IMPRESSION: Slight improvement in the mild interstitial pulmonary edema and small bilateral pleural effusions. ACT 112: Negative or not required by law. Electronically signed by: Camilo Lr M.D. 12/05/2021 9:29 AM
[2021-12-05] MEDS ORDERED: FUROSEMIDE INJ 20 MG/2 ML VIAL IV ONE (14:14)
[2021-12-05] MEDS ORDERED: POTASSIUM CHLORIDE CRTAB 20 MEQ TABCR PO STA (14:14)
[2021-12-05] MEDS: ATORVASTATIN 40 MG TAB PO SCH (21:42)
[2021-12-05] MEDS: CYANOCOBALAMIN (B-12) 500 MCG TABLET PO SCH (21:43)
[2021-12-05] MEDS: CARBIDOPA/LEVODOPA 50/200MG EXT REL TAB PO SCH (21:43)
[2021-12-05] MEDS: MELATONIN 3 MG TAB PO SCH (21:46)
--- NOTE | 2021-12-05 23:12 | Hospitalist Progress Note ---
Date of Service December 05, 2021 Assessment & Plan (1) HFrEF (heart failure with reduced ejection fraction): (2) Shortness of breath: (3) Elevated troponin: (4) Gastroparesis: (5) Congestive heart failure: (6) Parkinsons disease: (7) Hypothyroidism: (8) CAD (coronary artery disease): Plan Ms. Serrano is an 80 year old female who presented to the [facility] from home with SOB that has been occurring x5 days. She was recently admitted for HFrEF and was discharged from here on November 25. Heart Failure with reduced EF: Elevated Troponin: CAD: Present on admission with worsening shortness of breath CTA chest showed no evidence for central pulmonary embolus. Pulmonary edema with cardiomegaly and small to moderate bilateral pleural effusions. Patchy bibasilar densities are nonspecific but favor atelectasis. Repeat CXR today showed Slight improvement in the mild interstitial pulmonary edema and small bilateral pleural effusions. Troponin peaked to 88 been trending down to 81 Received Lasix 20 mg IV in the ER n. Last Echo EF: 30-35% from last admission. Will give Lasix 20mg IV x1 today Continue monitor closely Parkinsons Disease: Diagnosed 13 years ago. Per patient and family she appears to be worsening with her memory and ability to perform IADL's. She has recently started to use weighted silverware. Pt and family considering transitioning to a [facility]; no formal process has been started. Speech Therapy on board recommended easy to chew diet PT/OT on board Hypokalemia K 3.5 today Continue monitor BMP Gastroparesis: Follows Mahesh Bridges with GI and has received Botox injection June 2021 Continue monitor Hypothyroidism: TSH on admission 34.8 Levothyroxine increased to 125mcg on admission Check TSH in 4 to 6 weeks DVT px on heparin subq CODE status DNR Admission and Anticipated Discharge Date Admission Date: December 04, 2021 Subjective Patient was seen and examined for follow-up of shortness of breath Lying in bed in no acute distress Patient said breathing is much better Patient is on Lasix as needed but not sure if patient was taking it Currently denies any chest pain, palpitation, dizziness, shortness of breath. Review of Systems Review of Systems: All systems reviewed & are unremarkable except as noted in Subjective Physical Exam Physical Exam: General- No acute distress Head- atraumatic Eyes- PERRL, EOMI, ENT- oropharynx clear Neck- supple, no JVD Lungs- clear to auscultation, +diminished BS Heart- regular rhythm; no murmur Abdomen- normal bowel sounds, soft, nontender Extremities- no calf tenderness Neuro- alert, oriented x 3; PERRL, EOMI; no facial palsy; no dysarthria Skin- warm & dry Results & Data Results & [facility] ([facility]) Vital Signs (Past 12 Hours) Vital Signs Temp Pulse Pulse Resp BP Pulse Ox O2 Del Method 12/05/21 18:04 36.5 C 62 16 92/56 L 95 Room Air 12/05/21 16:00 36.6 C 60 18 107/69 93 Room Air 12/05/21 12:07 36.4 C L 52 L 18 114/68 95 12/05/21 11:29 63 (1) Congestive heart failure Heart failure chronicity: acute on chronic Heart failure type: systolic Qualified Code(s): I50.23 - Acute on chronic systolic (congestive) heart failure
[2021-12-06] MEDS: LEVOTHYROXINE SODIUM 125 MCG TABLET PO SCH (06:19)
[2021-12-06] MEDS: CEROVITE ADV FORMULA TAB PO SCH (08:24)
[2021-12-06] MEDS: SERTRALINE HCL 100 MG TABLET PO SCH (08:24)
[2021-12-06] MEDS: FLUDROCORTISONE ACETATE 0.1 MG TAB PO SCH (08:24)
[2021-12-06] MEDS: ASPIRIN 81 MG ECTAB PO SCH (08:24)
[2021-12-06] MEDS: CHOLECALCIFEROL 1,000 UNITS 25 MCG TAB PO SCH (08:24)
[2021-12-06] MEDS: FAMOTIDINE 40 MG TABLET PO SCH (08:24)
[2021-12-06] MEDS: CETIRIZINE HCL 10 MG TABLET PO SCH (08:24)
[2021-12-06] MEDS: CARBIDOPA/LEVODOPA 25/100MG TAB PO SCH ×4 (08:25→20:49)
[2021-12-06] MEDS: METOPROLOL SUCC 25MG EXT REL TAB PO SCH (08:25)
[2021-12-06] MEDS: PANTOprazole 40 MG TAB PO SCH (08:26)
[2021-12-06] MEDS: HEPARIN SOD 5,000 UNIT/0.5 ML VIAL SQ SCH ×3 (08:26→20:51)
[2021-12-06] MEDS: DOCUSATE SODIUM/SENNA 50/8.6MG TAB PO SCH (08:31)
[2021-12-06] MEDS: POLYETHYLENE (MIRALAX) 17 GM PACK PO SCH (08:31)
[2021-12-06 09:35] LABS: BUN Creatinine Ratio 19.7 (10-20); Creatinine Clr Calc Pharmacy 29.4 ml/min; Est GFR (African American) 50.3 ml/min; Est GFR (Non-African American) 43.4 ml/min; Potassium 3.6 mmol/L (3.5-5.1)
[2021-12-06] MEDS ORDERED: POTASSIUM CHLORIDE CRTAB 20 MEQ TABCR PO STA (18:31)
[2021-12-06] MEDS ORDERED: bisacodyL 5 MG TABEC PO ONE (18:45)
[2021-12-06] MEDS ORDERED: FUROSEMIDE 20 MG TAB PO ONE (18:45)
[2021-12-06] MEDS: CARBIDOPA/LEVODOPA 50/200MG EXT REL TAB PO SCH (20:49)
[2021-12-06] MEDS: CYANOCOBALAMIN (B-12) 500 MCG TABLET PO SCH (20:49)
[2021-12-06] MEDS: ATORVASTATIN 40 MG TAB PO SCH (20:51)
[2021-12-06] MEDS: MELATONIN 3 MG TAB PO SCH (20:53)
--- NOTE | 2021-12-06 22:18 | Hospitalist Progress Note ---
Date of Service December 06, 2021 Assessment & Plan (1) HFrEF (heart failure with reduced ejection fraction): (2) Shortness of breath: (3) Elevated troponin: (4) Gastroparesis: (5) Congestive heart failure: (6) Parkinsons disease: (7) Hypothyroidism: (8) CAD (coronary artery disease): Plan Ms. Serrano is an 80 year old female who presented to the [facility] from home with SOB that has been occurring x5 days. She was recently admitted for HFrEF and was discharged from here on November 25. Heart Failure with reduced EF: Elevated Troponin: CAD: Present on admission with worsening shortness of breath CTA chest showed no evidence for central pulmonary embolus. Pulmonary edema with cardiomegaly and small to moderate bilateral pleural effusions. Patchy bibasilar densities are nonspecific but favor atelectasis. Repeat CXR today showed Slight improvement in the mild interstitial pulmonary edema and small bilateral pleural effusions. Troponin peaked to 88 been trending down to 81 Received Lasix 20 mg IV in the ER Last Echo EF: 30-35% from last admission. Lasix 20 mg p.o. x1 given today Discussed with the provider team about 2 start on Lasix 20 mg 3 times a week instead of as needed As per cardiology due to or low BP and Parkinson med, cardiology suggested to continue Lasix as needed We will encourage patient on discharge to take Lasix if develop any sign of shortness of breath or weight gain over 2 pounds in 24 hours Continue monitor closely Parkinsons Disease: Diagnosed 13 years ago. Per patient and family she appears to be worsening with her memory and ability to perform IADL's. She has recently started to use weighted silverware. Pt and family considering transitioning to a [facility]; no formal process has been started. Speech Therapy on board recommended easy to chew diet PT/OT on board Hypokalemia K 3.6 today Potassium replaced Continue monitor BMP Gastroparesis: Follows Mahesh Bridegs with GI and has received Botox injection June 2021 Continue monitor Hypothyroidism: TSH on admission 34.8 Levothyroxine increased to 125mcg on admission Check TSH in 4 to 6 weeks DVT px on heparin subq CODE status DNR Admission and Anticipated Discharge Date Admission Date: December 04, 2021 Subjective Patient was seen and examined for follow-up of shortness of breath Lying in bed in no acute distress Patient said she has not had a bowel movement since admitted I was able to contact her cardiology provider about to start Lasix 20 mg 3 times a week Due to your low BP and the Parkinson's med, cardiology recommended to continue the Lasix as needed Currently denies any chest pain, palpitation, dizziness, shortness of breath. Review of Systems Review of Systems: All systems reviewed & are unremarkable except as noted in Subjective Physical Exam Physical Exam: General- No acute distress Head- atraumatic Eyes- PERRL, EOMI, ENT- oropharynx clear Neck- supple, no JVD Lungs- clear to auscultation, +diminished BS Heart- regular rhythm; no murmur Abdomen- normal bowel sounds, soft, nontender Extremities- no calf tenderness Neuro- alert, oriented x 3; PERRL, EOMI; no facial palsy; no dysarthria Skin- warm & dry Results & Data Results & Data ([facility]) Vital Signs (Past 12 Hours) Vital Signs Temp Pulse Pulse Resp BP Pulse Ox O2 Del Method 12/06/21 19:33 36.4 C L 66 18 109/71 97 Room Air 12/06/21 15:53 36.8 C 64 16 110/74 98 Room Air 12/06/21 15:28 Room Air 12/06/21 15:00 63 12/06/21 11:31 36.5 C 64 16 95/53 L 98 Room Air (1) Congestive heart failure Heart failure chronicity: acute on chronic Heart failure type: systolic Qualified Code(s): I50.23 - Acute on chronic systolic (congestive) heart failure
[2021-12-07] MEDS: LEVOTHYROXINE SODIUM 125 MCG TABLET PO SCH (06:14)
[2021-12-07] MEDS: ASPIRIN 81 MG ECTAB PO SCH (07:53)
[2021-12-07] MEDS: CEROVITE ADV FORMULA TAB PO SCH (07:53)
[2021-12-07] MEDS: FLUDROCORTISONE ACETATE 0.1 MG TAB PO SCH (07:53)
[2021-12-07] MEDS: METOPROLOL SUCC 25MG EXT REL TAB PO SCH (07:53)
[2021-12-07] MEDS: PANTOprazole 40 MG TAB PO SCH (07:53)
[2021-12-07] MEDS: CHOLECALCIFEROL 1,000 UNITS 25 MCG TAB PO SCH (07:53)
[2021-12-07] MEDS: FAMOTIDINE 40 MG TABLET PO SCH (07:53)
[2021-12-07] MEDS: DOCUSATE SODIUM/SENNA 50/8.6MG TAB PO SCH (07:54)
[2021-12-07] MEDS: CETIRIZINE HCL 10 MG TABLET PO SCH (07:54)
[2021-12-07] MEDS: CARBIDOPA/LEVODOPA 25/100MG TAB PO SCH ×2 (07:54→11:07)
[2021-12-07] MEDS: SERTRALINE HCL 100 MG TABLET PO SCH (07:54)
[2021-12-07] MEDS: HEPARIN SOD 5,000 UNIT/0.5 ML VIAL SQ SCH (07:55)
[2021-12-07] MEDS: POLYETHYLENE (MIRALAX) 17 GM PACK PO SCH (08:04)
--- NOTE | 2021-12-07 15:38 | Discharge Summary ---
Date of Service December 07, 2021 Admission HPI Per Admitting Provider Ms. Serrano is an 80 year old female who presented to the [facility] from home with SOB that has been occurring x5 days. She was recently admitted for HFrEF and was discharged from here on November 25. She has significant PMH that includes: CAD with history of PCI x7, cardiomyopathy with EF 30 to 35%, diastolic CHF, HTN, HLD, hypothyroidism, Parkinson's disease, prediabetes, GERD, gastroparesis status post EGD and Botox June 2021, macular degeneration, depression, history of SDH and ataxia. She is accompanied by her daughter Kacie who is at her bedside. Both the patient and daughter report that she has been i ncreasingly SOB x multiple months. She does see Murali Garcia as cardiology opt. She reports that she has been having a harder time with her ADL's over the past few months and now her shortness of breath is occurring at rest. She has been treated for gastroparesis by Mahesh Bridges and received a Botox injection with relief in June 2021. She states that she is compliant with her medications; however, has not taken them this morning. Her troponin level was 54 this morning, but her EKG remains unchanged from her last admission and no acute signs of an NM. A CXR revealed no infectious origin of her symptoms; rather a hiatal hernia and also small pleural effusions. In ED patient remained hemodynamically stable and on RA. Her CBC and CMP was generally unremarkable. She did have mild hypokalemia at 3.3 for which she received one K+ rider. Her BNP was more elevated than last admission; [phone]. She has been reluctant to admission more recently; however, was ammenable for admission to the hospital for closer medical monitoring and treatment. To note that she lives in a one story home with her Martir and has been having family discussions regarding transitioning to live at a [facility]. She will be admitted to med/surg telemtery for mild decompensation of CHF. Admission Exam Per Admitting Provider Constitutional: + frail appearing, cooperative and comfo rtable ENMT: Mouth: + dry oral mucous membranes Throat: uvula midline Respiratory: + cough (non productive ), able to speak in complete sentences and symmetric chest movement; no labored breathing, does not use accessory muscles and no audible wheezes Auscultation: + diminished lung sounds and + crackles (bases ); no wheezes Cardiovascular: Rate/Rhythm: regular rate and regular rhythm Heart Sounds: normal S1 and normal S2 Extremities: normal capillary refill; no pedal edema Gastrointestinal (Abdomen): Inspection/Auscultation: abdomen normal to inspection and normal bowel sounds Skin: normal turgor and + pallor; no mottling Psychiatric: Orientation: alert and oriented x 3 Affect: euthymic affect Insight: good insight Judgement: good judgement Lymphatic: no cervical or axillary lymphadenopathy Principal Diagnosis Acute on chronic systolic (congestive) heart failure Shortness of breath: Elevated troponin: Gastroparesis: Parkinsons disease: Hypothyroidism: CAD (coronary artery disease): Discharge Exam General- No acute distress Head- atraumatic Eyes- PERRL, EOMI, ENT- oropharynx clear Neck- supple, no JVD Lungs- clear to auscultation, +diminished BS Heart- regular rhythm; no murmur Abdomen- normal bowel sounds, soft, nontender Extremities- no calf tenderness Neuro- alert, oriented x 3; PERRL, EOMI; no facial palsy; no dysarthria Skin- warm & dry Discharge Data Allergies Allergy/AdvReac Type Severity Reaction Status Date / Time celecoxib AdvReac Intermediate GI SYMPTOMS Verified 12/04/21 13:41 aspirin AdvReac Mild Gastrointestinal Verified 12/04/21 13:41 Upset with 325mg dose. hydrocodone AdvReac Unknown STOMACH Verified 12/04/21 13:41 IRRITATION Consultations 12/04/21 12:49 ED Decision to Admit Stat Ordered Studies 12/04/21 10:40 CT angio chest PE protocol Stat XR chest 1V portable HISTORY: shortness of breath COMPARISON: Chest 12/04/2021. FINDINGS: No pneumothorax. The heart remains moderately enlarged. Mild interstitial pulmonary edema, small bilateral pleural fusions, and patchy bibasilar densities have slightly improved. IMPRESSION: Slight improvement in the mild interstitial pulmonary edema and small bilateral pleural effusions. ACT 112: Negative or not required by law. Electronically signed by: Camilo Lr M.D. 12/05/2021 9:29 AM Dictated:12/05/21927 Transcribed: 12/05/21927 CHEST CTA for PULMONARY ARTERIES CT DOSE: 586.38 mGycm HISTORY: Shortness of breath. TECHNIQUE: Multiaxial CT images of the chest were performed following the intravenous administration of contrast to evaluate the pulmonary arteries. Maximal intensity projection images were also obtained. A dose lowering technique was utilized adhering to the principles of ALARA. COMPARISON STUDY: Chest CT 09/26/2020. FINDINGS: There is motion artifact as well as streak artifact from the patient's overlapping arms. This results in nondiagnostic evaluation of the majority of the segmental and subsegmental pulmonary arteries within the lungs. The remaining central pulmonary arteries show no filling defects to suggest a pulmonary embolus. The heart is moderately enlarged. This has progressed in the interval. Small to moderate bilateral pleural effusions. Normal caliber thoracic aorta with mild calcified plaque. Inadequate contrast to assess for an aortic dissection. Severe calcified plaque within the coronary arteries. The visualized liver, spleen, and adrenal glands are unremarkable. There is a small hiatus hernia. No mediastinal or hilar lymphadenopathy. Mild body wall edema. No fractures within the visualized osseous structures. No pneumothorax. The central airways are patent. There is diffuse interlobular septal thickening consistent with pulmonary edema. Patchy and linear bibasilar densities are nonspecific but favor atelectasis. This most pronounced within the medial right lung base. IMPRESSION: 1. No evidence for central pulmonary embolus. 2. Pulmonary edema with cardiomegaly and small to moderate bilateral pleural effusions. 3. Patchy bibasilar densities are nonspecific but favor atelectasis. A pneumonia could also have a similar appearance in the appropriate clinical setting. 4. Small hiatus hernia. ACT 112: Negative or not required by law. Electronically signed by: Camilo Lr M.D. 12/04/2021 12:32 PM Dictated:12/04/21 1227 Transcribed: 12/04/21 1227 XR chest 1V portable HISTORY: 80 years-old Female Dyspnea acute shortness of breath COMPARISON: 11/25/2021 TECHNIQUE: Portable AP view of the chest FINDINGS: Cardiac silhouette is enlarged. Pulmonary vascular congestion. No pneumothorax. Probable small pleural effusions with mild bibasilar densities. Degenerative changes of the shoulders and spine. IMPRESSION: 1. Cardiomegaly with pulmonary vascular congestion. 2. Probable small pleural effusions with bibasilar bibasilar opacities. ACT 112: Negative or not required by law. The above report was generated using voice recognition software. It may contain grammatical, syntax or spelling errors. Electronically signed by: Lucas Grlulon M.D. 12/04/2021 10:47 AM Dictated:12/04/211045 Transcribed: 12/04/21 104 Hospital Course (1) HFrEF (heart failure with reduced ejection fraction): (2) Shortness of breath: (3) Elevated troponin: (4) Gastroparesis: (5) Congestive heart failure: (6) Parkinsons disease: (7) Hypothyroidism: (8) CAD (coronary artery disease): Plan Ms. Serrano is an 80 year old female who presented to the [facility] from home with SOB that has been occurring x5 days. She was recently admitted for HFrEF and was discharged from here on November 25. Acute on chronic systolic (congestive) heart failure Heart Failure with reduced EF: Elevated Troponin: CAD: Present on admission with worsening shortness of breath CTA chest showed no evidence for central pulmonary embolus. Pulmonary edema with cardiomegaly and small to moderate bilateral pleural effusions. Patchy bibasilar densities are nonspecific but favor atelectasis. Repeat CXR today showed Slight improvement in the mild interstitial pulmonary edema and small bilateral pleural effusions. Troponin peaked to 88 been trending down to 81 Received Lasix 20 mg IV in the ER Last Echo EF: 30-35% from last admission. Lasix 20 mg p.o. x1 given today Discussed with the provider team about 2 start on Lasix 20 mg 3 times a week instead of as needed As per cardiology due to or low BP and Parkinson med, cardiology suggested to continue Lasix as needed We will encourage patient on discharge to take Lasix if develop any sign of shortness of breath, swelling or weight gain over 2 pounds in 24 hours Continue monitor closely Parkinsons Disease: Diagnosed 13 years ago. Per patient and family she appears to be worsening with her memory and ability to perform IADL's. She has recently started to use weighted silverware. Pt and family considering transitioning to a [facility]; no formal process has been started. Speech Therapy on board recommended easy to chew diet PT/OT on board Hypokalemia K 3.6 today Potassium replaced Continue monitor BMP Gastroparesis: Follows Mahesh Bridges with GI and has received Botox injection June 2021 Continue monitor Hypothyroidism: TSH on admission 34.8 Levothyroxine increased to 125mcg on admission Check TSH in 4 to 6 weeks DVT px on heparin subq CODE status DNR Total Time Total Time Spent Total Time Spent (In Minutes): 35 minutes Discharge Plan Discharge Items Patient Disposition: Home - Home Health Services Reason For Visit: SHORTNESS OF BREATH Discharge Diagnosis: Acute on chronic systolic (congestive) heart failure Shortness of breath: Elevated troponin: Gastroparesis: Parkinsons disease: Hypothyroidism: CAD (coronary artery disease): Condition on Discharge: Fair Activity: Resume your previous activity Non-emergency contact: Primary Care Provider and [employer] Judge Call non-emergency contact if: you have any medication questions Follow-up/Referrals: Leonora Flower PA-C [Primary Care Provider] - (Date & Time 12/14/2021 11:00 AM Provider Raisa Martin MD Department Family Medicine [facility] ) Diet: Heart Healthy Addtl Attending Provider Instructions: Follow up with your primary care provider 12/14/2021 @ 11:00 AM Raisa Martin MD [facility] Follow up with your cardiology Murali Garcia PA-C (please call to schedule for the follow up ) Check TSH in 4 to 6 week to monitor your thyroid function since levothyroxine increased to 125 mcg Continue Lasix as needed if you develop any sign of shortness of breath, swelling or weight gain over 2 pounds in 1-2 day Increase potassium intake in your diet Fall precaution CHF Discharge Instructions Call your Primary Care doctor if any of the following symptoms or problems start or get worse: Shortness of breath or difficulty breathing Wake up at night short of breath Chest pain Cough Swelling of your hands, feet, or legs More fatigued or tired with your normal activity Palpitations - sudden fast heart beats WEIGHT Weigh yourself every morning after using the bathroom. Use the same scale. Wear the same amount of clothing. Write your weight down on a chart. Call your Primary Care doctor if you gain more than 2-3 pounds in 1-2 days. MEDICATIONS Use this discharge instruction sheet for medication instructions. Take your medications at the time your doctor ordered. Do not skip a dose of your medicines. If you miss a dose of medicine, take it as soon as possible, but DO NOT DOUBLE A DOSE. Read your medicine information when you get home. Know all of the side effects of your medicine. If in doubt, ask your pharmacist Call your Primary Care doctor's office if you have any side effects. Be sure all of your doctors know what medicine and herbs you take (including cold, flu, and herbal medicine). Take the following with you to your follow-up doctor appointments: Weight Chart Medication List List of questions Do not drink excessive alcohol, beer or wine. Pending Studies at Discharge: No Stand-Alone Forms: My [facility] [employer], Smoking Cessation Medications and DC Order Prescriptions: New levothyroxine [Synthroid] 125 mcg Tablet 125 mcg PO DAILYBB Qty: 30 0RF Continued atorvastatin 40 mg Tablet 40 mg PO HS melatonin 5 mg Tablet 5 mg PO HS cetirizine [Zyrtec] 10 mg Tablet 10 mg PO QAM sertraline 100 mg tablet 100 mg PO QAM sennosides-docusate sodium [Stool Softener-Laxative] 8.6-50 mg tablet 2 tab PO QAM carbidopa-levodopa [Sinemet] 25-100 mg tablet 1.5 tab PO QID Rx Instructions: take in morning, lunch, evening and night ok to take an extra tablet if needed carbidopa-levodopa 50-200 mg tablet extended release 1 tab PO HS cyanocobalamin (vitamin B-12) [Vitamin B-12] 1,000 mcg Tablet 1,000 mcg PO QPM aspirin 81 mg Tablet,Delayed Release (Dr/Ec) 81 mg PO QAM cholecalciferol (vitamin D3) [Vitamin D3] 25 mcg (1,000 unit) Capsule 25 mcg PO QAM Ocuvite with Lutein 1,000 unit-200 mg-60 unit-2 mg Tablet 1 tab PO QAM albuterol sulfate 90 mcg/actuation Hfa Aerosol Inhaler 2 puff INHALATION QID metoprolol succinate 25 mg Tablet Extended Release 24 Hr 12.5 mg PO QAM 30 Days Qty: 15 1RF carbidopa-levodopa 25-100 mg Tablet,Disintegrating 1 tab PO DAILY PRN (Reason: Tremors) 30 Days Qty: 30 1RF acetaminophen 325 mg tablet 975 mg PO Q4 PRN (Reason: Fever Or Pain) polyethylene glycol 3350 [Miralax] 17 gram Powder In Packet 17 g PO DAILY ondansetron HCl 4 mg tablet 4 mg PO Q6 PRN (Reason: Nausea) famotidine 40 mg tablet 40 mg PO DAILY furosemide 20 mg tablet 20 mg PO DAILY PRN (Reason: Edema) fludrocortisone 0.1 mg tablet 0.1 mg PO QAM Rx Instructions: Patient states she takes 1/2 tab per [facility]. pantoprazole 40 mg tablet,delayed release (DR/EC) 40 mg PO DAILY Discontinued levothyroxine 112 mcg tablet 112 mcg PO QAM Discharge Orders: Discharge Order (Routine); Ordered 12/07/21 Ordered By: Tiffanie Hansen Admission Data Admit Date/Time: 12/04/21 13:55 Attending Provider: Tiffanie Hansen Admit Provider: Chito Sutherland Primary Care Provider: Leonora Flower Other Providers: Chito Sutherland ; Patel Robison [facility]
== END 2021-12-07 16:44 | disposition home health service (06) | DRG 291 ==
LOC: ED 09:56 → EDINP 13:55 → SUATTDRO 13:55 → 2S 18:06 → 2W 12-05 08:25
DX: Z83.3 Family history of diabetes mellitus; I42.9 Cardiomyopathy, unspecified; I50.23 Acute on chronic systolic (congestive) heart failure; F41.9 Anxiety disorder, unspecified; Z79.82 Long term (current) use of aspirin; I11.0 Hypertensive heart disease with heart failure; R79.89 Other specified abnormal findings of blood chemistry; K21.9 Gastro-esophageal reflux disease without esophagitis; E87.6 Hypokalemia; K31.84 Gastroparesis; Z66 Do not resuscitate; G20 Parkinson's disease; Z79.890 Hormone replacement therapy; E03.9 Hypothyroidism, unspecified; I25.10 Atherosclerotic heart disease of native coronary artery without angina pectoris; Z82.49 Family history of ischemic heart disease and other diseases of the circulatory system; Z95.5 Presence of coronary angioplasty implant and graft

== ENCOUNTER 2021-12-09 18:24 | Inpatient (IN) ==
--- NOTE | 2021-12-09 18:51 | Emergency Department Note ---
Impression & Plan Hypoxia, SOB (shortness of breath), CHF (congestive heart failure), Failure of outpatient treatment ED Provider Note NAME: KESHA CALLES AGE: 81 SEX: F : 1940 ARRIVES VIA: Ambulance INFORMANT: [Patient][nursing] ED PROVIDER(S): [Porfirio Boggs MD] CHIEF COMPLAINT: Short of breath HISTORY OF PRESENT ILLNESS: The patient is an 81-year-old female who presents to the ER with shortness of breath that began today. She was discharged from our hospital 2 days ago after being admitted for CHF. She is now on Lasix 3 times a week. The patient states that she slept well last night and did not feel poorly yesterday. Her dyspnea began today. There has been no increased cough. No fever. No abdominal pain or chest pain. The patient states that her medications are put together by the pharmacy, she takes what she is told to take and took her medications today as prescribed. As per nursing staff, the patient's O2 saturation was around 83% on room air. She was placed on 2 L of oxygen with an improvement in her O2 saturation to above 90%. She feels better with the oxygen in place REVIEW OF SYSTEMS: See HPI for pertinent positives and negatives. A total of ten systems were reviewed and were otherwise negative. PMHx/PSHx: See Below SOCIAL HISTORY: See Below. PHYSICAL EXAM: GENERAL: Patient is in no acute distress. HEENT: No acute trauma, normocephalic atraumatic, mucous membranes moist, no nasal congestion, no scleral icterus. NECK: No stridor, no adenopathy, no meningismus, trachea is midline. LUNGS: Scattered crackles bilaterally, no wheezing. There is a somewhat increased respiratory rate. No respiratory distress HEART: Subtle systolic murmur, regular rate and rhythm. ABDOMEN: Soft, nontender, bowel sounds positive, no peritonitis. EXTREMITIES: No cyanosis or edema, full range of motion of all the joints without pain or difficulty, no signs for acute trauma. NEUROLOGIC: Oriented x 3, no acute motor or sensory deficits, no focal weakness. Constant movement of her extremities consistent with her Parkinson's. SKIN: No rash, no jaundice, no diaphoresis. Pale. DIFFERENTIAL DIAGNOSIS: Reactive airway disease, pneumonia, pneumothorax, COPD, CHF, infection, cardiac ischemia, pulmonary embolism, bronchitis, musculoskeletal, gastrointestinal, as well as other pathologies. EMERGENCY DEPARTMENT COURSE/PROCEDURES: ECG: Indication was shortness of breath. The ECG shows what appears to be a sinus rhythm with a first-degree AV block. There is LVH present. The rate is 74. There is some baseline artifact. There is no ST elevation, no PVCs. The QTc is 452. There are inverted T waves in the lateral leads. Compared to an ECG from 04 December 2021, I see no significant change. Continuous Cardiac Monitoring: An order was placed for continuous cardiac monitoring. The monitor shows a rate of 72 with sinus rhythm with a first review block. Critical Care Note: I have personally spent 43 minutes of critical care time in the direct management of this patient. This includes bedside care, interpretation of diagnostic studies, and testing, discussion with consultants, patient, and family members, and other required patient management activities. This 43 minutes is in excess of all separately billable procedures. MEDICAL DECISION MAKING: There is no leukocytosis or concerning anemia. There is a normal platelet count. No coagulopathy. No renal failure or significant electrolyte abnormality. No concerning liver enzyme elevation. ECG showed a sinus rhythm with a first-degree AV block. No obvious concerning ST elevation. Cardiac enzyme testing x1 is slightly elevated. The patient has a history of a chronically elevated troponin. BNP was elevated consistent with CHF and fluid overload. Chest x-ray shows some mild CHF and cardiomegaly. Urinalysis does not show infection. COVID test was negative. On exam, the patient was hypoxic without O2 supplementation. The patient received IV Lasix, 40 mg. The patient presents back to the ED with shortness of breath. She is still in heart failure. She was hypoxic upon arrival. She was just discharged 2 days ago. I do not think the patient is stable for discharge home. I did speak with the patient about her findings, I spoke with the patient's daughter over the phone. I did speak with the skilled nursing case manager. The on-call hospitalist was consulted. Past Med/Surg History Medical History Anxiety CAD (coronary artery disease) Status post August 2007 PCI of both the RCA and LCX with FABIOLA Status post April 2008 PCI of the mid RCA with 2 FABIOLA Status post May 2008 PCI of the proximal LAD Status post March 2013 PCI of the RCA with a FABIOLA 7 stents total. Chronic back pain Chronic kidney disease stage 3 - monitors Dysphagia Esophageal spasm Gastroparesis GERD (gastroesophageal reflux disease) HFrEF (heart failure with reduced ejection fraction) Hyperlipidemia Hypertension Hypothyroidism Hypothyroidism Parkinson disease Parkinsons disease Prediabetes Per records Shortness of breath Surgical History History of ankle surgery LEFT History of appendectomy History of cardiac cath 08/2007, 04/2008, 2008, 2012 History of cholecystectomy Per records History of colonoscopy History of heart artery stent x7 total History of herniorrhaphy Per records History of hysterectomy History of thumb surgery Per records- right thumb Hx of angioplasty FOLLOWS HALEY ROMO PA S/P left knee arthroscopy S/P right knee arthroscopy x2 Family History Mother Diabetes Brother Myocardial infarction Other No family history of adverse response to anesthesia Social History Smoking Status: Never smoker Second Hand Exposure: No; Hx Alcohol Use: No Hx Substance Use: No Preferred Language: Icelandic Communication Ability: Effective Forestry 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 hydrocodone AdvReac Unknown STOMACH Verified 12/04/21 13:41 IRRITATION Home Meds Home Medications Medication Instructions Recorded Confirmed atorvastatin 40 mg tablet 40 mg PO HS 06/25/19 12/04/21 melatonin 5 mg tablet 5 mg PO HS 01/07/20 12/04/21 cetirizine 10 mg tablet (Zyrtec) 10 mg PO QAM 08/16/20 12/04/21 sertraline 100 mg tablet 100 mg PO QAM 08/16/20 12/04/21 aspirin 81 mg tablet,delayed 81 mg PO QAM 09/26/20 12/04/21 release cholecalciferol (vitamin D3) 25 25 mcg PO QAM 09/26/20 12/04/21 mcg (1,000 unit) capsule (Vitamin D3) vit A 300 mcg-C 200 mg-E 27 1 tab PO QAM 09/26/20 12/04/21 mg-lutein 2 mg and minerals tablet (Ocuvite with Lutein) carbidopa 25 mg-levodopa 100 mg 1.5 tab PO QID 12/31/20 12/04/21 tablet (Sinemet) sennosides 8.6 mg-docusate sodium 2 tab PO QAM 12/31/20 12/04/21 50 mg tablet (Stool Softener-Laxative) carbidopa ER 50 mg-levodopa 200 mg 1 tab PO HS 06/08/21 12/04/21 tablet,extended release cyanocobalamin (vitamin B-12) 1,000 mcg PO QPM 06/08/21 12/04/21 1,000 mcg tablet (Vitamin B-12) albuterol sulfate 90 mcg/actuation 2 puff inhalation QID 08/14/21 12/04/21 aerosol inhaler acetaminophen 325 mg tablet 975 mg PO Q4 PRN Fever Or Pain 12/04/21 12/04/21 famotidine 40 mg tablet 40 mg PO DAILY 12/04/21 12/04/21 fludrocortisone 0.1 mg tablet 0.1 mg PO QAM 12/04/21 12/04/21 furosemide 20 mg tablet 20 mg PO DAILY PRN Edema 12/04/21 12/04/21 ondansetron HCl 4 mg tablet 4 mg PO Q6 PRN Nausea 12/04/21 12/04/21 pantoprazole 40 mg tablet,delayed 40 mg PO DAILY 12/04/21 12/04/21 release polyethylene glycol 3350 17 gram 17 g PO DAILY 12/04/21 12/04/21 oral powder packet (Miralax) Previous Rx's Medication Instructions Recorded carbidopa 25 mg-levodopa 100 mg 1 tab PO DAILY PRN Tremors 30 days 08/20/21 disintegrating tablet #30 tabs metoprolol succinate 25 mg 12.5 mg PO QAM 30 days #15 tabs 08/20/21 tablet,extended release 24 hr levothyroxine 125 mcg tablet 125 mcg PO DAILYBB #30 tabs 12/07/21 (Synthroid) Results & Data (ED) Vital Signs Vital Signs - 24 hr 12/09/21 18:30 12/09/21 18:46 12/09/21 18:50 Temperature 37.0 C Temperature Source Oral Pulse Rate 72 Pulse Rate [Left Finger] Respiratory Rate 25 H Respiratory Effort / Characteristics Non-Labored Spontaneous Non-Labored Spontaneous Respiratory Depth Shallow Respiratory Pattern Tachypnea Blood Pressure 123/75 Blood Pressure [Left Arm] Blood Pressure Mean 91 Blood Pressure Mean [Left Arm] Blood Pressure Position Semi-fowlers Blood Pressure Position [Left Arm] Pulse Oximetry 83 L 83 L Oxygen Delivery Method Room Air Room Air Nasal Cannula Oxygen Flow Rate 0 Sepsis Recent Fever Within 48 Hours No Sepsis New/Unexplained Change in Mental Status N/A Sepsis Action Taken by Nursing No Action Required Oxygen Flow Rate - Titration 2 Pulse Oximetry Post Tiitration 100 12/09/21 19:55 12/09/21 22:00 12/09/21 23:29 Temperature Temperature Source Pulse Rate Pulse Rate [Left Finger] 64 72 68 Respiratory Rate 16 20 16 Respiratory Effort / Characteristics Non-Labored Spontaneous Respiratory Depth Normal Respiratory Pattern Blood Pressure Blood Pressure [Left Arm] 112/76 124/79 124/73 Blood Pressure Mean Blood Pressure Mean [Left Arm] 88 94 90 Blood Pressure Position Blood Pressure Position [Left Arm] Sitting Pulse Oximetry 98 98 95 Oxygen Delivery Method Nasal Cannula Nasal Cannula Nasal Cannula Oxygen Flow Rate 2 2 2 Sepsis Recent Fever Within 48 Hours Sepsis New/Unexplained Change in Mental Status Sepsis Action Taken by Nursing Oxygen Flow Rate - Titration Pulse Oximetry Post Tiitration Home Medications Current Medication List: was personally reviewed by me Laboratory Data Attestation: I reviewed the patient's lab results. Result diagrams: 12/09/21 18:49 12/09/21 18:49 Lab Results 12/09/21 12/09/21 12/09/21 Range/Units 18:49 18:49 18:54 WBC 6.14 (4.8-10.8) K/ul RBC 4.35 (3.93-5.22) M/uL Hgb 12.0 (12.0-16.0) g/dl Hct 38.3 (34.1-44.9) % MCV 88.0 (80.0-100.0) fL MCH 27.6 (25.0-34.0) pg MCHC 31.3 L (32.0-36.0) g/dL RDW Std Deviation 48.0 H (36.4-46.3) fL RDW Coeff of Ananya 14.7 H (11.5-14.5) % Plt Count 201 (130-400) K/uL MPV 10.7 (9.4-12.3) fL Immature Gran % (Auto) 0.2 % Neut % (Auto) 62.2 % Lymph % (Auto) 23.1 % Woodson % (Auto) 10.6 % Eos % (Auto) 3.1 % Baso % (Auto) 0.8 % Neut # (Auto) 3.82 (1.4-6.5) K/uL Lymph # (Auto) 1.42 (1.2-3.4) K/uL Woodson # (Auto) 0.65 (0.24-0.82) K/uL Eos # (Auto) 0.19 (0-0.50) K/uL Baso # (Auto) 0.05 (0-0.2) K/uL Immature Gran # (Auto) 0.01 (0.00-0.02) K/uL PT 12.1 H (9.0-12.0) Seconds INR 1.1 (0.9-1.1) APTT 25.7 (21.0-31.0) Seconds PTT Ratio 0.9 Sodium 140 (136-145) mmol/L Potassium 4.3 (3.5-5.1) mmol/L Chloride 106 (98-107) mmol/L Carbon Dioxide 26 (21-32) mmol/L Anion Gap 8 (3-11) BUN 23 (6-23) mg/dl Creatinine 1.03 (0.6-1.2) mg/dl Est Cr Clr Drug Dosing 34.5 ml/min Est GFR ( Amer) 58.2 ml/min Est GFR (Non-Af Amer) 50.2 ml/min BUN/Creatinine Ratio 22.3 H (10-20) Glucose 109 H (70-99(Fasting)) mg/dl Calcium 8.9 (8.5-10.1) mg/dl Magnesium 2.0 (1.7-2.4) mg/dl Total Bilirubin 0.6 (0.2-1.0) mg/dl AST 14 (13-39) U/L ALT < 3 L (7-52) U/L Alkaline Phosphatase 50 (34-104) U/L Troponin I High Sens 37.8 H D (0-14) pg/ml B-Natriuretic Peptide (0-100) pg/ml Total Protein 6.3 (6.0-8.3) gm/dl Albumin 3.9 (3.4-5.0) gm/dl Globulin 2.4 L (2.5-4.0) gm/dl Albumin/Globulin Ratio 1.6 (0.9-2) Urine Color Urine Appearance (Clear) Urine pH (4.5-7.5) Ur Specific Coyle (1.000-1.030) Urine Protein (Negative) Urine Glucose (UA) (Negative) Urine Ketones (Negative) Urine Blood (Negative) Urine Nitrite (Negative) Urine Bilirubin (Negative) Urine Urobilinogen (Negative) Ur Leukocyte Esterase (Negative) Urine WBC (Auto) (0-5) /hpf Urine RBC (Auto) (0-4) /hpf U Hyaline Cast (Auto) (0-5) /lpf U Epithel Cells (Auto) (0-5) /lpf Urine Bacteria (Auto) (Negative) SARS-CoV-2, RNA, NAAT (NEGATIVE) 12/09/21 12/09/21 12/09/21 Range/Units 18:54 19:03 20:54 WBC (4.8-10.8) K/ul RBC (3.93-5.22) M/uL Hgb (12.0-16.0) g/dl Hct (34.1-44.9) % MCV (80.0-100.0) fL MCH (25.0-34.0) pg MCHC (32.0-36.0) g/dL RDW Std Deviation (36.4-46.3) fL RDW Coeff of Ananya (11.5-14.5) % Plt Count (130-400) K/uL MPV (9.4-12.3) fL Immature Gran % (Auto) % Neut % (Auto) % Lymph % (Auto) % Woodson % (Auto) % Eos % (Auto) % Baso % (Auto) % Neut # (Auto) (1.4-6.5) K/uL Lymph # (Auto) (1.2-3.4) K/uL Woodson # (Auto) (0.24-0.82) K/uL Eos # (Auto) (0-0.50) K/uL Baso # (Auto) (0-0.2) K/uL Immature Gran # (Auto) (0.00-0.02) K/uL PT (9.0-12.0) Seconds INR (0.9-1.1) APTT (21.0-31.0) Seconds PTT Ratio Sodium (136-145) mmol/L Potassium (3.5-5.1) mmol/L Chloride (98-107) mmol/L Carbon Dioxide (21-32) mmol/L Anion Gap (3-11) BUN (6-23) mg/dl Creatinine (0.6-1.2) mg/dl Est Cr Clr Drug Dosing ml/min Est GFR ( Amer) ml/min Est GFR (Non-Af Amer) ml/min BUN/Creatinine Ratio (10-20) Glucose (70-99(Fasting)) mg/dl Calcium (8.5-10.1) mg/dl Magnesium (1.7-2.4) mg/dl Total Bilirubin (0.2-1.0) mg/dl AST (13-39) U/L ALT (7-52) U/L Alkaline Phosphatase (34-104) U/L Troponin I High Sens (0-14) pg/ml B-Natriuretic Peptide 668 H (0-100) pg/ml Total Protein (6.0-8.3) gm/dl Albumin (3.4-5.0) gm/dl Globulin (2.5-4.0) gm/dl Albumin/Globulin Ratio (0.9-2) Urine Color Yellow Urine Appearance Clear (Clear) Urine pH 7.5 (4.5-7.5) Ur Specific Coyle 1.009 (1.000-1.030) Urine Protein Negative (Negative) Urine Glucose (UA) Negative (Negative) Urine Ketones Negative (Negative) Urine Blood Negative (Negative) Urine Nitrite Negative (Negative) Urine Bilirubin Negative (Negative) Urine Urobilinogen Negative (Negative) Ur Leukocyte Esterase Trace H (Negative) Urine WBC (Auto) 1-5 (0-5) /hpf Urine RBC (Auto) 0-4 (0-4) /hpf U Hyaline Cast (Auto) 0 (0-5) /lpf U Epithel Cells (Auto) 0-5 (0-5) /lpf Urine Bacteria (Auto) Negative (Negative) SARS-CoV-2, RNA, NAAT NEGATIVE (NEGATIVE) Administered Medications Discontinued Medications Furosemide (Furosemide 40 Mg/4 Ml Vial) 40 mg IV ONE ONE Stop: 12/09/21 19:19 Last Admin: 12/09/21 19:54 Dose: 40 mg Documented By: ALMITA Imaging Data Radiologist's Impression: Chest X-Ray 12/09/21 18:48 XR chest 1V portable CLINICAL HISTORY: Dyspnea COMPARISON STUDY: Chest CT December 04, 2021. Chest radiograph December 05, 2021. FINDINGS: No pneumothorax. Small bilateral pleural effusions are again noted. Left basilar opacity is improved. Persistent mild pulmonary edema. Cardiomegaly is unchanged. IMPRESSION: 1. Persistent pulmonary edema and small bilateral pleural effusions. 2. Interval improvement in left basilar opacity. 3. Cardiomegaly. ACT 112: Negative or not required by law. Electronically signed by: Gabriel Irving M.D. 12/09/2021 7:19 PM Discharge Plan Visit Data Chief Complaint: Respiratory Problems ED Provider: Porfirio Boggs Prescriptions Prescriptions: No Action atorvastatin 40 mg Tablet 40 mg PO HS melatonin 5 mg Tablet 5 mg PO HS cetirizine [Zyrtec] 10 mg Tablet 10 mg PO QAM sertraline 100 mg tablet 100 mg PO QAM sennosides-docusate sodium [Stool Softener-Laxative] 8.6-50 mg tablet 2 tab PO QAM carbidopa-levodopa [Sinemet] 25-100 mg tablet 1.5 tab PO QID Rx Instructions: take in morning, lunch, evening and night ok to take an extra tablet if needed carbidopa-levodopa 50-200 mg tablet extended release 1 tab PO HS cyanocobalamin (vitamin B-12) [Vitamin B-12] 1,000 mcg Tablet 1,000 mcg PO QPM aspirin 81 mg Tablet,Delayed Release (Dr/Ec) 81 mg PO QAM cholecalciferol (vitamin D3) [Vitamin D3] 25 mcg (1,000 unit) Capsule 25 mcg PO QAM Ocuvite with Lutein 1,000 unit-200 mg-60 unit-2 mg Tablet 1 tab PO QAM albuterol sulfate 90 mcg/actuation Hfa Aerosol Inhaler 2 puff INHALATION QID metoprolol succinate 25 mg Tablet Extended Release 24 Hr 12.5 mg PO QAM 30 Days Qty: 15 1RF carbidopa-levodopa 25-100 mg Tablet,Disintegrating 1 tab PO DAILY PRN (Reason: Tremors) 30 Days Qty: 30 1RF acetaminophen 325 mg tablet 975 mg PO Q4 PRN (Reason: Fever Or Pain) polyethylene glycol 3350 [Miralax] 17 gram Powder In Packet 17 g PO DAILY ondansetron HCl 4 mg tablet 4 mg PO Q6 PRN (Reason: Nausea) famotidine 40 mg tablet 40 mg PO DAILY furosemide 20 mg tablet 20 mg PO DAILY PRN (Reason: Edema) fludrocortisone 0.1 mg tablet 0.1 mg PO QAM Rx Instructions: Patient states she takes 1/2 tab per sangita. pantoprazole 40 mg tablet,delayed release (DR/EC) 40 mg PO DAILY levothyroxine [Synthroid] 125 mcg Tablet 125 mcg PO DAILYBB Qty: 30 0RF
[2021-12-09 18:59] LABS: Basophils # (auto) 0.05 K/uL (0-0.2); Basophils % (auto) 0.8 %; Eosinophils # (auto) 0.19 K/uL (0-0.50); Eosinophils % (auto) 3.1 %; Hematocrit (blood only) 38.3 % (34.1-44.9); Immature Granulocytes # (auto) 0.01 K/uL (0.00-0.02); Immature Granulocytes % (auto) 0.2 %; Lymphocytes # (auto) 1.42 K/uL (1.2-3.4); Lymphocytes % (auto) 23.1 %; Mean Corpuscular Hemoglobin 27.6 pg (25.0-34.0); Mean Corpuscular Hgb Conc 31.3 g/dL (32.0-36.0); Mean Platelet Volume 10.7 fL (9.4-12.3); Monocytes # (auto) 0.65 K/uL (0.24-0.82); Monocytes % (auto) 10.6 %; Neutrophils # (auto) 3.82 K/uL (1.4-6.5); Neutrophils % (auto) 62.2 %; Platelet Count 201 K/uL (130-400); RDW Coefficient of Variation 14.7 % (11.5-14.5); Red Blood Count 4.35 M/uL (3.93-5.22); White Blood Count 6.14 K/ul (4.8-10.8)
[2021-12-09] MEDS ORDERED: FUROSEMIDE 40 MG/4 ML VIAL IV ONE (19:18)
--- NOTE | 2021-12-09 19:21 | XRay Report ---
XR chest 1V portable CLINICAL HISTORY: Dyspnea COMPARISON STUDY: Chest CT December 04, 2021. Chest radiograph December 05, 2021. FINDINGS: No pneumothorax. Small bilateral pleural effusions are again noted. Left basilar opacity is improved. Persistent mild pulmonary edema. Cardiomegaly is unchanged. IMPRESSION: 1. Persistent pulmonary edema and small bilateral pleural effusions. 2. Interval improvement in left basilar opacity. 3. Cardiomegaly. ACT 112: Negative or not required by law. Electronically signed by: Gabriel Irving M.D. 12/09/2021 7:19 PM
[2021-12-09 19:23] LABS: Anion Gap 8 (3-11); BUN Creatinine Ratio 22.3 (10-20); Blood Urea Nitrogen 23 mg/dl (6-23); Calcium 8.9 mg/dl (8.5-10.1); Carbon Dioxide 26 mmol/L (21-32); Chloride 106 mmol/L (98-107); Creatinine Clr Calc Pharmacy 34.5 ml/min; Est GFR (African American) 58.2 ml/min; Est GFR (Non-African American) 50.2 ml/min; Glucose 109 mg/dl (70-99(Fasting)); Potassium 4.3 mmol/L (3.5-5.1); Sodium 140 mmol/L (136-145)
[2021-12-09 19:24] LABS: Alanine Aminotransferase < 3 U/L (7-52); Albumin Globulin Ratio 1.6 (0.9-2); Albumin Level 3.9 gm/dl (3.4-5.0); Alkaline Phosphatase 50 U/L (34-104); Aspartate Aminotransferase 14 U/L (13-39); Bilirubin,Total 0.6 mg/dl (0.2-1.0); Globulin 2.4 gm/dl (2.5-4.0); Total Protein 6.3 gm/dl (6.0-8.3)
[2021-12-09 19:25] LABS: Troponin I High Sensitivity 37.8 pg/ml (0-14)
[2021-12-09 19:27] LABS: INR 1.1 (0.9-1.1); Partial Thromboplastin Ratio 0.9; Partial Thromboplastin Time 25.7 Seconds (21.0-31.0); Prothrombin Time 12.1 Seconds (9.0-12.0)
[2021-12-09 21:11] LABS: Appearance Urine Clear (Clear); Bacteria Urine Automated Negative (Negative); Bilirubin Urine Negative (Negative); Blood Urine Negative (Negative); Cast Urine Automated 0 /lpf (0-5); Color Urine Yellow; Epithelial Cell Urine Auto 0-5 /lpf (0-5); Glucose Urine UA Negative (Negative); Ketones Urine Negative (Negative); Leukocyte Esterase Urine Trace (Negative); Nitrite Urine Negative (Negative); Protein Urine Negative (Negative); RBC Urine Automated 0-4 /hpf (0-4); Specific Gravity Urine 1.009 (1.000-1.030); Urobilinogen Urine Negative (Negative); pH Urine 7.5 (4.5-7.5)
--- NOTE | 2021-12-09 23:23 | History & Physical Report ---
Date of Service December 09, 2021 Assessment & Plan (1) Acute hypoxemic respiratory failure: Plan: Secondary to persistent heart failure Recent confinement few days ago hx chronic systolic heart failure (EF 40%, TTE 2021) ? Fludrocortisone Rx started by neurologist to prevent levodopa induced hypotension as precipitant Troponin elevation secondary to illness hx CAD status post stent hypertension, BP stable hyperlipidemia, on statin Rx Parkinson's disease, stable on current regimen hypothyroidism, elevated TSH during recent confinement, maintenance levothyroxine increased following recent discharge history traumatic subdural hematoma/SAH Prediabetes, hemoglobin A1c of 6.10 August 2021 Possible functional disability PCU Supplemental O2 Diuretic Rx Strict I/Os, daily weights, CHF education, fluid restriction Stop fludrocortisone Favor in initiating low-dose Midodrine over fludrocortisone for orthostatic hypotension given less potential for fluid retention with former medication (Of note, patient previously on Midodrine. Medication discontinued by cardi ologist following December 2020 confinement for CHF.) Follow troponin, TTE if with progression PT OT eval DVT prophylaxis. Lovenox subcu DNR Patient requests for daughter to be updated of plan of care. Ms. Kacie Serrano, contact #[phone]. Text document was generated using [employer] voice recognition software. It may contain grammatical or spelling errors. Kindly contact undersigned for clarification of any documentation item in question. History of Present Illness Chief Complaint: Shortness of breath Primary Care Provider: Raisa Martin MD History obtained from patient and records. Medical history significant for chronic systolic heart failure (EF 40%, TTE 2021), CAD status post stent, PFO, hypertension, hyperlipidemia, COPD as per records, Parkinson's disease, hypothyroidism, prediabetes, GERD, gastroparesis, history subdural hematoma, orthostatic hypotension on Fludrocortisone. Patient seen by [facility] neurologist on follow-up visit 2 months ago. For Parkinson's disease and essential tremors. Patient switched to slow release carbidopa/levodopa. Fludrocortisone initiated to prevent orthostatic hypotension from levodopa. Last confinement December 04 to 2021 for decompensated heart failure. Patient still short of breath following discharge. Worse with exertion. No chest pain, no cough symptoms. Patient tries to be compliant with home medications. Patient thinks she may not be able to take care of herself at home where she resides with her . Worsening shortness of breath today. O2 sats noted to be 80s on room air. Patient brought to the ER for evaluation. IV Lasix administered for CHF. 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 hydrocodone AdvReac Unknown STOMACH Verified 12/04/21 13:41 IRRITATION Home Medications Medication Instructions Recorded Confirmed Type atorvastatin 40 mg tablet 40 mg PO HS 06/25/19 12/04/21 History melatonin 5 mg tablet 5 mg PO HS 01/07/20 12/04/21 History cetirizine 10 mg tablet (Zyrtec) 10 mg PO QAM 08/16/20 12/04/21 History sertraline 100 mg tablet 100 mg PO QAM 08/16/20 12/04/21 History aspirin 81 mg tablet,delayed 81 mg PO QAM 09/26/20 12/04/21 History release cholecalciferol (vitamin D3) 25 25 mcg PO QAM 09/26/20 12/04/21 History mcg (1,000 unit) capsule (Vitamin D3) vit A 300 mcg-C 200 mg-E 27 1 tab PO QAM 09/26/20 12/04/21 History mg-lutein 2 mg and minerals tablet (Ocuvite with Lutein) carbidopa 25 mg-levodopa 100 mg 1.5 tab PO QID 12/31/20 12/04/21 History tablet (Sinemet) sennosides 8.6 mg-docusate sodium 2 tab PO QAM 12/31/20 12/04/21 History 50 mg tablet (Stool Softener-Laxative) carbidopa ER 50 mg-levodopa 200 mg 1 tab PO HS 06/08/21 12/04/21 History tablet,extended release cyanocobalamin (vitamin B-12) 1,000 mcg PO QPM 06/08/21 12/04/21 History 1,000 mcg tablet (Vitamin B-12) albuterol sulfate 90 mcg/actuation 2 puff inhalation QID 08/14/21 12/04/21 History aerosol inhaler carbidopa 25 mg-levodopa 100 mg 1 tab PO DAILY PRN Tremors 30 days 08/20/21 12/04/21 Rx disintegrating tablet #30 tabs metoprolol succinate 25 mg 12.5 mg PO QAM 30 days #15 tabs 08/20/21 12/04/21 Rx tablet,extended release 24 hr acetaminophen 325 mg tablet 975 mg PO Q4 PRN Fever Or Pain 12/04/21 12/04/21 History famotidine 40 mg tablet 40 mg PO DAILY 12/04/21 12/04/21 History fludrocortisone 0.1 mg tablet 0.1 mg PO QAM 12/04/21 12/04/21 History furosemide 20 mg tablet 20 mg PO DAILY PRN Edema 12/04/21 12/04/21 History ondansetron HCl 4 mg tablet 4 mg PO Q6 PRN Nausea 12/04/21 12/04/21 History pantoprazole 40 mg tablet,delayed 40 mg PO DAILY 12/04/21 12/04/21 History release polyethylene glycol 3350 17 gram 17 g PO DAILY 12/04/21 12/04/21 History oral powder packet (Miralax) levothyroxine 125 mcg tablet 125 mcg PO DAILYBB #30 tabs 12/07/21 Rx (Synthroid) Past Med/Surg History Medical History Anxiety CAD (coronary artery disease) Status post August 2007 PCI of both the RCA and LCX with FABIOLA Status post April 2008 PCI of the mid RCA with 2 FABIOLA Status post May 2008 PCI of the proximal LAD Status post March 2013 PCI of the RCA with a FABIOLA 7 stents total. Chronic back pain Chronic kidney disease stage 3 - monitors Dysphagia Esophageal spasm Gastroparesis GERD (gastroesophageal reflux disease) HFrEF (heart failure with reduced ejection fraction) Hyperlipidemia Hypertension Hypothyroidism Hypothyroidism Parkinson disease Parkinsons disease Prediabetes Per records Shortness of breath Surgical History History of ankle surgery LEFT History of appendectomy History of cardiac cath 08/2007, 04/2008, 2008, 2012 History of cholecystectomy Per records History of colonoscopy History of heart artery stent x7 total History of herniorrhaphy Per records History of hysterectomy History of thumb surgery Per records- right thumb Hx of angioplasty FOLLOWS [place] S/P left knee arthroscopy S/P right knee arthroscopy x2 Family History Mother Diabetes Brother Myocardial infarction Other No family history of adverse response to anesthesia Social History Smoking Status: Never smoker Second Hand Exposure: No; Hx Alcohol Use: No Hx Substance Use: No Preferred Language: Serbian Communication Ability: Effective 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 Beliefs That Will Affect Care: None marital status: Current Living Situation: Spouse How many Children do You have: 4 Other Information That Helps Us Care for You: No Feels Safe at Home: Yes Safety Concerns: Feels Safe At This Time Assistive Devices: Denture - Upper, Denture - Lower, Glasses, Oxygen - Continuous and Walker Review of Systems Review of Systems: As per HPI, all other systems reviewed and negative Physical Exam Physical Exam: GENERAL: Slightly uncomfortable, no respiratory distress SKIN: normal color, warm HEENT: [place] palpebral conjunctivae, no ptosis, moist buccal mucosa, nasal cannula in place NECK : Supple, no tenderness CHEST : Decreased breath sounds, no tenderness HEART : RRR, systolic murmur ABDOMEN: Some distention, nontender EXTREMITIES : Minimal LE swelling, no LE tenderness, no other conspicuous deformities noted NEUROLOGIC : Coherent, no facial asymmetry, tremulous, gait and stance not assessed Results & Data Results & Data ([facility]) Vital Signs (Past 12 Hours) Vital Signs Temp Pulse Pulse Resp BP BP Pulse Ox 12/09/21 22:00 72 20 124/79 98 12/09/21 19:55 64 16 112/76 98 12/09/21 18:46 83 L 12/09/21 18:30 37.0 C 72 25 H 123/75 83 L O2 Del Method O2 Flow Rate 12/09/21 22:00 Nasal Cannula 2 12/09/21 19:55 Nasal Cannula 2 12/09/21 18:46 Room Air, Nasal Cannula 0 12/09/21 18:30 Room Air Laboratory Results Laboratory Results WBC 6.14 K/ul (4.8-10.8) 12/09/21 18:49 RBC 4.35 M/uL (3.93-5.22) 12/09/21 18:49 Hgb 12.0 g/dl (12.0-16.0) 12/09/21 18:49 Hct 38.3 % (34.1-44.9) 12/09/21 18:49 MCV 88.0 fL (80.0-100.0) 12/09/21 18:49 MCH 27.6 pg (25.0-34.0) 12/09/21 18:49 MCHC 31.3 g/dL (32.0-36.0) L 12/09/21 18:49 RDW Std Deviation 48.0 fL (36.4-46.3) H 12/09/21 18:49 RDW Coeff of Ananya 14.7 % (11.5-14.5) H 12/09/21 18:49 Plt Count 201 K/uL (130-400) 12/09/21 18:49 MPV 10.7 fL (9.4-12.3) 12/09/21 18:49 Immature Gran % (Auto) 0.2 % 12/09/21 18:49 Neut % (Auto) 62.2 % 12/09/21 18:49 Lymph % (Auto) 23.1 % 12/09/21 18:49 [place] % (Auto) 10.6 % 12/09/21 18:49 Eos % (Auto) 3.1 % 12/09/21 18:49 Baso % (Auto) 0.8 % 12/09/21 18:49 Neut # (Auto) 3.82 K/uL (1.4-6.5) 12/09/21 18:49 Lymph # (Auto) 1.42 K/uL (1.2-3.4) 12/09/21 18:49 [place] # (Auto) 0.65 K/uL (0.24-0.82) 12/09/21 18:49 Eos # (Auto) 0.19 K/uL (0-0.50) 12/09/21 18:49 Baso # (Auto) 0.05 K/uL (0-0.2) 12/09/21 18:49 Immature Gran # (Auto) 0.01 K/uL (0.00-0.02) 12/09/21 18:49 PT 12.1 Seconds (9.0-12.0) H 12/09/21 18:54 INR 1.1 (0.9-1.1) 12/09/21 18:54 APTT 25.7 Seconds (21.0-31.0) 12/09/21 18:54 PTT Ratio 0.9 12/09/21 18:54 Sodium 140 mmol/L (136-145) 12/09/21 18:49 Potassium 4.3 mmol/L (3.5-5.1) 12/09/21 18:49 Chloride 106 mmol/L (98-107) 12/09/21 18:49 Carbon Dioxide 26 mmol/L (21-32) 12/09/21 18:49 Anion Gap 8 (3-11) 12/09/21 18:49 BUN 23 mg/dl (6-23) 12/09/21 18:49 Creatinine 1.03 mg/dl (0.6-1.2) 12/09/21 18:49 Est Cr Clr Drug Dosing 34.5 ml/min 12/09/21 18:49 Est GFR ( Amer) 58.2 ml/min 12/09/21 18:49 Est GFR (Non-Af Amer) 50.2 ml/min 12/09/21 18:49 BUN/Creatinine Ratio 22.3 (10-20) H 12/09/21 18:49 Glucose 109 mg/dl (70-99(Fasting)) H 12/09/21 18:49 Calcium 8.9 mg/dl (8.5-10.1) 12/09/21 18:49 Magnesium 2.0 mg/dl (1.7-2.4) 12/09/21 18:49 Total Bilirubin 0.6 mg/dl (0.2-1.0) 12/09/21 18:49 AST 14 U/L (13-39) 12/09/21 18:49 ALT < 3 U/L (7-52) L 12/09/21 18:49 Alkaline Phosphatase 50 U/L (34-104) 12/09/21 18:49 Troponin I High Sens 37.8 pg/ml (0-14) H D 12/09/21 18:49 B-Natriuretic Peptide 668 pg/ml (0-100) H 12/09/21 18:54 Total Protein 6.3 gm/dl (6.0-8.3) 12/09/21 18:49 Albumin 3.9 gm/dl (3.4-5.0) 12/09/21 18:49 Globulin 2.4 gm/dl (2.5-4.0) L 12/09/21 18:49 Albumin/Globulin Ratio 1.6 (0.9-2) 12/09/21 18:49 Urine Color Yellow 12/09/21 20:54 Urine Appearance Clear (Clear) 12/09/21 20:54 Urine pH 7.5 (4.5-7.5) 12/09/21 20:54 Ur Specific [place] 1.009 (1.000-1.030) 12/09/21 20:54 Urine Protein Negative (Negative) 12/09/21 20:54 Urine Glucose (UA) Negative (Negative) 12/09/21 20:54 Urine Ketones Negative (Negative) 12/09/21 20:54 Urine Blood Negative (Negative) 12/09/21 20:54 Urine Nitrite Negative (Negative) 12/09/21 20:54 Urine Bilirubin Negative (Negative) 12/09/21 20:54 Urine Urobilinogen Negative (Negative) 12/09/21 20:54 Ur Leukocyte Esterase Trace (Negative) H 12/09/21 20:54 Urine WBC (Auto) 1-5 /hpf (0-5) 12/09/21 20:54 Urine RBC (Auto) 0-4 /hpf (0-4) 12/09/21 20:54 U Hyaline Cast (Auto) 0 /lpf (0-5) 12/09/21 20:54 U Epithel Cells (Auto) 0-5 /lpf (0-5) 12/09/21 20:54 Urine Bacteria (Auto) Negative (Negative) 12/09/21 20:54 SARS-CoV-2, RNA, NAAT NEGATIVE (NEGATIVE) 12/09/21 19:03 Impressions Chest X-Ray 12/09/21 18:48 XR chest 1V portable CLINICAL HISTORY: Dyspnea COMPARISON STUDY: Chest CT December 04, 2021. Chest radiograph December 05, 2021. FINDINGS: No pneumothorax. Small bilateral pleural effusions are again noted. Left basilar opacity is improved. Persistent mild pulmonary edema. Cardiomegaly is unchanged. IMPRESSION: 1. Persistent pulmonary edema and small bilateral pleural effusions. 2. Interval improvement in left basilar opacity. 3. Cardiomegaly. ACT 112: Negative or not required by law. Electronically signed by: Gabriel Irving M.D. 12/09/2021 7:19 PM Diagnostic Findings EKG as per my interpretation :Rate 75, NSR, LAD, LAFB, LVH, diffuse T wave abno rmalities
[2021-12-10] MEDS ORDERED: ACETAMINOPHEN 325 MG TAB PO PRN (00:25)
[2021-12-10] MEDS ORDERED: NITROGLYCERIN SL 0.4 MG/TAB TAB SL PRN (00:25)
[2021-12-10] MEDS ORDERED: CARBIDOPA/LEVODOPA 25/100MG TAB ODT PO PRN (00:25)
[2021-12-10] MEDS ORDERED: MELATONIN 3 MG TAB PO PRN (00:40)
[2021-12-10 05:39] LABS: Basophils # (auto) 0.06 K/uL (0-0.2); Basophils % (auto) 0.9 %; Eosinophils # (auto) 0.24 K/uL (0-0.50); Eosinophils % (auto) 3.6 %; Hematocrit (blood only) 34.5 % (34.1-44.9); Immature Granulocytes # (auto) 0.01 K/uL (0.00-0.02); Immature Granulocytes % (auto) 0.2 %; Lymphocytes # (auto) 1.59 K/uL (1.2-3.4); Lymphocytes % (auto) 24.2 %; Mean Corpuscular Hemoglobin 28.1 pg (25.0-34.0); Mean Corpuscular Hgb Conc 31.9 g/dL (32.0-36.0); Mean Platelet Volume 10.3 fL (9.4-12.3); Monocytes # (auto) 0.73 K/uL (0.24-0.82); Monocytes % (auto) 11.1 %; Neutrophils # (auto) 3.95 K/uL (1.4-6.5); Platelet Count 184 K/uL (130-400); RDW Coefficient of Variation 14.7 % (11.5-14.5); RDW Standard Deviation 47.2 fL (36.4-46.3); Red Blood Count 3.92 M/uL (3.93-5.22); White Blood Count 6.58 K/ul (4.8-10.8)
[2021-12-10 06:05] LABS: Partial Thromboplastin Time 26.4 Seconds (21.0-31.0)
[2021-12-10 06:09] LABS: Troponin I High Sensitivity 42.9 pg/ml (0-14)
[2021-12-10] MEDS: LEVOTHYROXINE SODIUM 125 MCG TABLET PO SCH (06:24)
[2021-12-10 06:26] LABS: BUN Creatinine Ratio 24.4 (10-20); Calcium 8.5 mg/dl (8.5-10.1); Creatinine Clr Calc Pharmacy 38.1 ml/min; Est GFR (African American) 68.5 ml/min; Est GFR (Non-African American) 59.1 ml/min; Potassium 3.6 mmol/L (3.5-5.1)
[2021-12-10] MEDS: FAMOTIDINE 40 MG TABLET PO SCH (08:28)
[2021-12-10] MEDS: DOCUSATE SODIUM/SENNA 50/8.6MG TAB PO SCH (08:28)
[2021-12-10] MEDS: CEROVITE ADV FORMULA TAB PO SCH (08:28)
[2021-12-10] MEDS: METOPROLOL SUCC 25MG EXT REL TAB PO SCH (08:30)
[2021-12-10] MEDS: SERTRALINE HCL 100 MG TABLET PO SCH (08:30)
[2021-12-10] MEDS: PANTOprazole 40 MG TAB PO SCH (08:32)
[2021-12-10] MEDS: CARBIDOPA/LEVODOPA 25/100MG TAB PO SCH ×4 (08:32→20:20)
[2021-12-10] MEDS: CETIRIZINE HCL 10 MG TABLET PO SCH (08:32)
[2021-12-10] MEDS: POLYETHYLENE (MIRALAX) 17 GM PACK PO SCH (08:32)
[2021-12-10] MEDS: ASPIRIN 81 MG ECTAB PO SCH (08:32)
[2021-12-10] MEDS: MIDODRINE HCL 2.5 MG TAB PO SCH ×2 (08:33→16:14)
[2021-12-10] MEDS: FUROSEMIDE 40 MG/4 ML VIAL IV SCH ×2 (08:33→16:14)
[2021-12-10] MEDS: ENOXAPARIN INJ 40 MG/0.4 ML SYR SQ SCH (08:34)
--- NOTE | 2021-12-10 09:26 | Cardiology Consultation ---
Date of Consultation December 10, 2021 Assessment & Plan (1) Acute on chronic systolic HF (heart failure): (2) Hypoxia: (3) Parkinsons disease: (4) HFrEF (heart failure with reduced ejection fraction): (5) Hypokalemia: Plan This is patient's second admission in the last 10 days for CHF exacerbation Florinef likely contributing factor. Agree with discontinuation on admission. Trial of low dose midodrine initiated. BP currently controlled. Symptoms improved with IV diuresis overnight and today. Continue furosemide 40 mg IV BID today. Supplement potassium. Daily weight with standing scale. Patient does not believe she was taking furosemide at home since last discharge. SHe uses pill packs, and likely was not added. Consider furosemide 20 mg daily on discharge. Case discussed with Dr. Crystal. Supervising Physician Co-Signing Physician Notes I reviewed the medical record and discussed the case with Elian. I have seen and examined the patient. This is an elderly woman with a history of Parkinson's disease and was started on Florinef because of orthostatic hypotension. I believe this caused fluid retention and is not a good medication for this patient. If there is a need for treatment of her orthostasis, then I would recommend something like midodrine. History of Present Illness Reason for Consultation: CHF Requesting Physician: Dr. Hansen Attending Physician: Dr. Crystal History of Present Illness Patient is a 81 year old female, known to [facility], followed intermittently by Maria Luisa Garcia PA-C. History includes: Cardiac Problem List: 1. ASCVD 1. Status postApril 2007 PCI of both the RCA and LCX with FABIOLA 2. Status postDecember 2007 PCI of the mid RCA with 2 FABIOLA 3. Status postJanuary 2008 PCI of the proximal LAD 4. Status postNovember 2012 PCI of the RCA with a FABIOLA 5. Cardiac catheterization on 03/25/2013 which demonstrated the following: No evidence of LM disease. 70% lesion in the D1. Mild disease in a medium sized proximal LAD. Nondominant LCX with an existing stent with a 60% lesion. Dominant RCA with a 90% 10 mm long culprit lesion in the mid portion of the vessel s/p PCI with a Xience Expedition Everolimus Eluting coronary stent. 2. Moderately reduced LV systolic function, ejection fraction 30 to 35%, most recent echo at 40% 3. Mitral regurgitation 4. Diastolic dysfunction 5. PFO with small [id number] right interatrial shunt 6. Hypertension 7. Dyslipidemia Patient admitted for HFrEF last week with volume overload. Was taking furosemide PRN at home. Had recently been started on Florinef by neurology due to orthostatic hypotension related to her Parkinsons. Upon discharge, she was prescribed furosemide 20 mg 3 times per week. Patient admits she is unsure if she received medication from her pharmacy and may not have been taking. She was admitted several days after discharge with similar complaints including worsening SOB, hypoxia and orthopnea, with cough/congestion, consistent with CHF exacerbation. She received several doses of IV lasix since yesterday in the ER. Oxygen levels improving with diuresis. HS troponin improved from last admission with only mild elevation. EKG was poor tracing on admission, but appeared NSR without acute changes. No chest pain reported. At time of consult, patient resting in bed comfortably. Off supplemental O2. She reports ongoing cough/congestion, but improved. No chest pain. No edema. No orthopnea. Allergies Allergy/AdvReac Type Severity Reaction Status Date / Time celecoxib AdvReac Intermediate GI SYMPTOMS Verified 12/04/21 13:41 aspirin AdvReac Mild Gastrointestinal Verified 12/04/21 13:41 Upset with 325mg dose. hydrocodone AdvReac Unknown STOMACH Verified 12/04/21 13:41 IRRITATION Home Medications Medication Instructions Recorded Confirmed Type atorvastatin 40 mg tablet 40 mg PO HS 06/25/19 12/04/21 History melatonin 5 mg tablet 5 mg PO HS 01/07/20 12/04/21 History cetirizine 10 mg tablet (Zyrtec) 10 mg PO QAM 08/16/20 12/04/21 History sertraline 100 mg tablet 100 mg PO QAM 08/16/20 12/04/21 History aspirin 81 mg tablet,delayed 81 mg PO QAM 09/26/20 12/04/21 History release cholecalciferol (vitamin D3) 25 25 mcg PO QAM 09/26/20 12/04/21 History mcg (1,000 unit) capsule (Vitamin D3) vit A 300 mcg-C 200 mg-E 27 1 tab PO QAM 09/26/20 12/04/21 History mg-lutein 2 mg and minerals tablet (Ocuvite with Lutein) carbidopa 25 mg-levodopa 100 mg 1.5 tab PO QID 12/31/20 12/04/21 History tablet (Sinemet) sennosides 8.6 mg-docusate sodium 2 tab PO QAM 12/31/20 12/04/21 History 50 mg tablet (Stool Softener-Laxative) carbidopa ER 50 mg-levodopa 200 mg 1 tab PO HS 06/08/21 12/04/21 History tablet,extended release cyanocobalamin (vitamin B-12) 1,000 mcg PO QPM 06/08/21 12/04/21 History 1,000 mcg tablet (Vitamin B-12) albuterol sulfate 90 mcg/actuation 2 puff inhalation QID 08/14/21 12/04/21 History aerosol inhaler carbidopa 25 mg-levodopa 100 mg 1 tab PO DAILY PRN Tremors 30 days 08/20/21 12/04/21 Rx disintegrating tablet #30 tabs metoprolol succinate 25 mg 12.5 mg PO QAM 30 days #15 tabs 08/20/21 12/04/21 Rx tablet,extended release 24 hr acetaminophen 325 mg tablet 975 mg PO Q4 PRN Fever Or Pain 12/04/21 12/04/21 History famotidine 40 mg tablet 40 mg PO DAILY 12/04/21 12/04/21 History fludrocortisone 0.1 mg tablet 0.1 mg PO QAM 12/04/21 12/04/21 History furosemide 20 mg tablet 20 mg PO DAILY PRN Edema 12/04/21 12/04/21 History ondansetron HCl 4 mg tablet 4 mg PO Q6 PRN Nausea 12/04/21 12/04/21 History pantoprazole 40 mg tablet,delayed 40 mg PO DAILY 12/04/21 12/04/21 History release polyethylene glycol 3350 17 gram 17 g PO DAILY 12/04/21 12/04/21 History oral powder packet (Miralax) levothyroxine 125 mcg tablet 125 mcg PO DAILYBB #30 tabs 12/07/21 Rx (Synthroid) Patient History Medical History Anxiety CAD (coronary artery disease) Status post August 2007 PCI of both the RCA and LCX with FABIOLA Status post April 2008 PCI of the mid RCA with 2 FABIOLA Status post May 2008 PCI of the proximal LAD Status post March 2013 PCI of the RCA with a FABIOLA 7 stents total. Chronic back pain Chronic kidney disease stage 3 - monitors Dysphagia Esophageal spasm Gastroparesis GERD (gastroesophageal reflux disease) HFrEF (heart failure with reduced ejection fraction) Hyperlipidemia Hypertension Hypothyroidism Hypothyroidism Parkinson disease Parkinsons disease Prediabetes Per records Shortness of breath Surgical History History of ankle surgery LEFT History of appendectomy History of cardiac cath 08/2007, 04/2008, 2008, 2012 History of cholecystectomy Per records History of colonoscopy History of heart artery stent x7 total History of herniorrhaphy Per records History of hysterectomy History of thumb surgery Per records- right thumb Hx of angioplasty FOLLOWS [place] S/P left knee arthroscopy S/P right knee arthroscopy x2 Family History Mother Diabetes Brother Myocardial infarction Other No family history of adverse response to anesthesia Social History Smoking Status: Never smoker Second Hand Exposure: No; Hx Alcohol Use: No Hx Substance Use: No Preferred Language: Bangladeshi Communication Ability: Effective [place] Hand Required: No Beliefs That Will Affect Care: None marital status: Current Living Situation: Spouse How many Children do You have: 4 Other Information That Helps Us Care for You: No Feels Safe at Home: Yes Safety Concerns: Feels Safe At This Time Assistive Devices: Denture - Upper, Denture - Lower, Glasses, Oxygen - Continuous and Walker Review of Systems Review of Systems: All systems reviewed & are unremarkable except as noted in HPI & below Physical Exam Constitutional: WD/WN, vitals as above Respiratory: no respiratory distress and no labored breathing Auscultation: + crackles (faint bibasilar) Cardiovascular: Rate/Rhythm: regular rate and regular rhythm Heart Sounds: + murmur (II/ systolic murmur) Vessels: no JVD Extremities: no edema Gastrointestinal (Abdomen): normal bowel sounds, soft, nontender, no hepatosplenomegaly Neurologic: PERRL, EOMI, accommodation nl, no face palsy, no dysarthria Motor/Sensory: + tremor Psychiatric: A+Ox3, euthymic affect Results & Data ([facility]) Vital Signs (Past 12 Hours) Vital Signs Temp Pulse Pulse Resp BP Pulse Ox O2 Del Method 12/10/21 08:25 66 144/76 H 12/10/21 07:00 60 12/10/21 06:50 36.8 C 59 L 17 120/67 100 Room Air 12/10/21 04:22 36.5 C 63 17 120/74 100 Nasal Cannula 12/10/21 00:25 Nasal Cannula 12/10/21 00:25 36.4 C L 69 16 138/83 99 Nasal Cannula 12/09/21 23:29 68 16 124/73 95 Nasal Cannula 12/09/21 22:00 72 20 124/79 98 Nasal Cannula O2 Flow Rate 12/10/21 08:25 12/10/21 07:00 12/10/21 06:50 12/10/21 04:22 2 12/10/21 00:25 2 12/10/21 00:25 2 12/09/21 23:29 2 12/09/21 22:00 2 Laboratory Results Cardiac Enzymes 12/09/21 12/09/21 12/10/21 Range/Units 18:49 18:54 00:30 AST 14 (13-39) U/L Troponin I High Sens 37.8 H D 47.7 H (0-14) pg/ml B-Natriuretic Peptide 668 H (0-100) pg/ml 12/10/21 Range/Units 05:18 AST (13-39) U/L Troponin I High Sens 42.9 H (0-14) pg/ml B-Natriuretic Peptide (0-100) pg/ml Coagulation 12/09/21 12/09/21 12/10/21 Range/Units 18:54 18:54 05:18 PT 12.1 H (9.0-12.0) Seconds APTT 25.7 26.4 (21.0-31.0) Seconds B-Natriuretic Peptide 668 H (0-100) pg/ml CBC 12/09/21 12/10/21 Range/Units 18:49 05:18 WBC 6.14 6.58 (4.8-10.8) K/ul RBC 4.35 3.92 L (3.93-5.22) M/uL Hgb 12.0 11.0 L (12.0-16.0) g/dl Hct 38.3 34.5 (34.1-44.9) % Plt Count 201 184 (130-400) K/uL Neut # (Auto) 3.82 3.95 (1.4-6.5) K/uL Lymph # (Auto) 1.42 1.59 (1.2-3.4) K/uL [place] # (Auto) 0.65 0.73 (0.24-0.82) K/uL Eos # (Auto) 0.19 0.24 (0-0.50) K/uL Baso # (Auto) 0.05 0.06 (0-0.2) K/uL Comprehensive Metabolic Panel 12/09/21 12/10/21 Range/Units 18:49 05:18 Sodium 140 140 (136-145) mmol/L Potassium 4.3 3.6 (3.5-5.1) mmol/L Chloride 106 104 (98-107) mmol/L Carbon Dioxide 26 28 (21-32) mmol/L BUN 23 22 (6-23) mg/dl Creatinine 1.03 0.90 (0.6-1.2) mg/dl Glucose 109 H 90 (70-99(Fasting)) mg/dl Calcium 8.9 8.5 (8.5-10.1) mg/dl AST 14 (13-39) U/L ALT < 3 L (7-52) U/L Alkaline Phosphatase 50 (34-104) U/L Total Protein 6.3 (6.0-8.3) gm/dl Albumin 3.9 (3.4-5.0) gm/dl Intake and Output 12/09/21 12/10/21 12/10/21 22:59 06:59 14:59 Intake Total 200 / 200 Output Total 1400 / 1700 300 / 1700 Balance -1400 / -1500 -100 / -1500 Intake: Oral 200 / 200 Output: Urine 1400 / 1700 300 / 1700 Other: Weight 63.7 kg 59.3 kg Weight Measurement Method Standing Scale Diagnostic Findings Telemetry reviewed: NSR in the 60-70 bpm range. No arrhythmias EKG reviewed: NSR with baseline artifact. Likely LVH Laboratory Results WBC 6.58 K/ul (4.8-10.8) 12/10/21 05:18 RBC 3.92 M/uL (3.93-5.22) L 08/01/22 05:18 Hgb 11.0 g/dl (12.0-16.0) L 12/10/21 05:18 Hct 34.5 % (34.1-44.9) 12/10/21 05:18 MCV 88.0 fL (80.0-100.0) 12/10/21 05:18 MCH 28.1 pg (25.0-34.0) 12/10/21 05:18 MCHC 31.9 g/dL (32.0-36.0) L 12/10/21 05:18 RDW Std Deviation 47.2 fL (36.4-46.3) H 12/10/21 05:18 RDW Coeff of Ananya 14.7 % (11.5-14.5) H 12/10/21 05:18 Plt Count 184 K/uL (130-400) 12/10/21 05:18 MPV 10.3 fL (9.4-12.3) 12/10/21 05:18 Immature Gran % (Auto) 0.2 % 12/10/21 05:18 Neut % (Auto) 60.0 % 12/10/21 05:18 Lymph % (Auto) 24.2 % 12/10/21 05:18 [place] % (Auto) 11.1 % 12/10/21 05:18 Eos % (Auto) 3.6 % 12/10/21 05:18 Baso % (Auto) 0.9 % 12/10/21 05:18 Neut # (Auto) 3.95 K/uL (1.4-6.5) 12/10/21 05:18 Lymph # (Auto) 1.59 K/uL (1.2-3.4) 12/10/21 05:18 [place] # (Auto) 0.73 K/uL (0.24-0.82) 12/10/21 05:18 Eos # (Auto) 0.24 K/uL (0-0.50) 12/10/21 05:18 Baso # (Auto) 0.06 K/uL (0-0.2) 12/10/21 05:18 Immature Gran # (Auto) 0.01 K/uL (0.00-0.02) 12/10/21 05:18 PT 12.1 Seconds (9.0-12.0) H 12/09/21 18:54 INR 1.1 (0.9-1.1) 12/09/21 18:54 APTT 26.4 Seconds (21.0-31.0) 12/10/21 05:18 PTT Ratio 1.0 12/10/21 05:18 Sodium 140 mmol/L (136-145) 12/10/21 05:18 Potassium 3.6 mmol/L (3.5-5.1) 12/10/21 05:18 Chloride 104 mmol/L (98-107) 12/10/21 05:18 Carbon Dioxide 28 mmol/L (21-32) 12/10/21 05:18 Anion Gap 8 (3-11) 12/10/21 05:18 BUN 22 mg/dl (6-23) 12/10/21 05:18 Creatinine 0.90 mg/dl (0.6-1.2) 12/10/21 05:18 Est Cr Clr Drug Dosing 38.1 ml/min 12/10/21 05:18 Est GFR ( Amer) 68.5 ml/min 12/10/21 05:18 Est GFR (Non-Af Amer) 59.1 ml/min 12/10/21 05:18 BUN/Creatinine Ratio 24.4 (10-20) H 12/10/21 05:18 Glucose 90 mg/dl (70-99(Fasting)) 12/10/21 05:18 Calcium 8.5 mg/dl (8.5-10.1) 12/10/21 05:18 Magnesium 2.0 mg/dl (1.7-2.4) 12/09/21 18:49 Total Bilirubin 0.6 mg/dl (0.2-1.0) 12/09/21 18:49 AST 14 U/L (13-39) 12/09/21 18:49 ALT < 3 U/L (7-52) L 12/09/21 18:49 Alkaline Phosphatase 50 U/L (34-104) 12/09/21 18:49 Troponin I High Sens 42.9 pg/ml (0-14) H 12/10/21 05:18 B-Natriuretic Peptide 668 pg/ml (0-100) H 12/09/21 18:54 Total Protein 6.3 gm/dl (6.0-8.3) 12/09/21 18:49 Albumin 3.9 gm/dl (3.4-5.0) 12/09/21 18:49 Globulin 2.4 gm/dl (2.5-4.0) L 12/09/21 18:49 Albumin/Globulin Ratio 1.6 (0.9-2) 12/09/21 18:49 Urine Color Yellow 12/09/21 20:54 Urine Appearance Clear (Clear) 12/09/21 20:54 Urine pH 7.5 (4.5-7.5) 12/09/21 20:54 Ur Specific [place] 1.009 (1.000-1.030) 12/09/21 20:54 Urine Protein Negative (Negative) 12/09/21 20:54 Urine Glucose (UA) Negative (Negative) 12/09/21 20:54 Urine Ketones Negative (Negative) 12/09/21 20:54 Urine Blood Negative (Negative) 12/09/21 20:54 Urine Nitrite Negative (Negative) 12/09/21 20:54 Urine Bilirubin Negative (Negative) 12/09/21 20:54 Urine Urobilinogen Negative (Negative) 12/09/21 20:54 Ur Leukocyte Esterase Trace (Negative) H 12/09/21 20:54 Urine WBC (Auto) 1-5 /hpf (0-5) 12/09/21 20:54 Urine RBC (Auto) 0-4 /hpf (0-4) 12/09/21 20:54 U Hyaline Cast (Auto) 0 /lpf (0-5) 12/09/21 20:54 U Epithel Cells (Auto) 0-5 /lpf (0-5) 12/09/21 20:54 Urine Bacteria (Auto) Negative (Negative) 12/09/21 20:54 SARS-CoV-2, RNA, NAAT NEGATIVE (NEGATIVE) 12/09/21 19:03 Impressions Chest X-Ray 12/09/21 18:48 XR chest 1V portable CLINICAL HISTORY: Dyspnea COMPARISON STUDY: Chest CT December 04, 2021. Chest radiograph December 05, 2021. FINDINGS: No pneumothorax. Small bilateral pleural effusions are again noted. Left basilar opacity is improved. Persistent mild pulmonary edema. Cardiomegaly is unchanged. IMPRESSION: 1. Persistent pulmonary edema and small bilateral pleural effusions. 2. Interval improvement in left basilar opacity. 3. Cardiomegaly. ACT 112: Negative or not required by law. Electronically signed by: Gabriel Irving M.D. 12/09/2021 7:19 PM Medications Administered Current Inpatient Medications Acetaminophen (Acetaminophen 325 Mg Tab) 650 mg PO Q4H PRN PRN Reason: Pain or Fever Stop: 01/09/22 00:24 Aspirin (Aspirin 81 Mg Ectab) 81 mg PO QAM [facility] Stop: 01/09/22 08:59 Last Admin: 12/10/21 08:32 Dose: 81 mg Atorvastatin Calcium (Atorvastatin 40 Mg Tab) 40 mg PO HS JESUS Stop: 01/09/22 20:59 Carbidopa/Levodopa (Carbidopa/Levodopa 25/100mg Tab) 1.5 tab PO QID [facility] Stop: 01/09/22 08:59 Last Admin: 12/10/21 08:32 Dose: 1.5 tab Carbidopa/Levodopa (Carbidopa/Levodopa 50/200mg Ext Rel Tab) 1 tab PO HS JESUS Stop: 01/09/22 20:59 Carbidopa/Levodopa (Carbidopa/Levodopa 25/100mg Tab Odt) 1 tab PO DAILY PRN PRN Reason: Tremors Stop: 01/09/22 00:24 Cetirizine HCl (Cetirizine Hcl 10 Mg Tablet) 10 mg PO QAM [facility] Stop: 01/09/22 08:59 Last Admin: 12/10/21 08:32 Dose: 10 mg Cyanocobalamin (Cyanocobalamin (B-12) 500 Mcg Tablet) 1,000 mcg PO QPM [facility]ESUS Stop: 01/09/22 20:59 Enoxaparin Sodium (Enoxaparin Inj 40 Mg/0.4 Ml Syr) 40 mg SQ QAM [facility] Stop: 01/09/22 08:59 Last Admin: 12/10/21 08:34 Dose: Not Given Famotidine (Famotidine 40 Mg Tablet) 40 mg PO DAILY [facility]US Stop: 01/09/22 08:59 Last Admin: 12/10/21 08:28 Dose: 40 mg Furosemide (Furosemide 40 Mg/4 Ml Vial) 40 mg IV BID17 JESUS Stop: 12/10/21 17:01 Last Admin: 12/10/21 08:33 Dose: 40 mg Levothyroxine Sodium (Levothyroxine Sodium 125 Mcg Tablet) 125 mcg PO DAILYBB [facility] Stop: 01/09/22 06:29 Last Admin: 12/10/21 06:24 Dose: 125 mcg Melatonin (Melatonin 3 Mg Tab) 6 mg PO HSZ PRN PRN Reason: Sleep Stop: 01/09/22 00:39 Metoprolol Succinate (Metoprolol Succ 25mg Ext Rel Tab) 12.5 mg PO QAM [facility] Stop: 01/09/22 08:59 Last Admin: 12/10/21 08:30 Dose: 12.5 mg Midodrine (Midodrine Hcl 2.5 Mg Tab) 2.5 mg PO BID17 [facility] Stop: 01/09/22 08:59 Last Admin: 12/10/21 08:33 Dose: Not Given Multivitamins/Minerals (Cerovite Adv Formula Tab) 1 tab PO QAM [facility] Stop: 01/09/22 08:59 Last Admin: 12/10/21 08:28 Dose: 1 tab Nitroglycerin (Nitroglycerin Sl 0.4 Mg/Tab Tab) 0.4 mg SL UD PRN PRN Reason: Chest Pain Stop: 01/09/22 00:24 Pantoprazole Sodium (Pantoprazole 40 Mg Tab) 40 mg PO DAILY [facility]ESUS Stop: 01/09/22 08:59 Last Admin: 12/10/21 08:32 Dose: 40 mg Polyethylene Glycol (Polyethylene (Miralax) 17 Gm Pack) 17 gm PO DAILY [facility] Stop: 01/09/22 08:59 Last Admin: 12/10/21 08:32 Dose: 17 gm Potassium Chloride (Potassium Chloride Crtab 20 Meq Tabcr) 20 meq PO QAM [facility] Stop: 01/09/22 10:29 Senna/Docusate Sodium (Docusate Sodium/Senna 50/8.6mg Tab) 2 tab PO QAM [facility] Stop: 01/09/22 08:59 Last Admin: 12/10/21 08:28 Dose: 2 tab Sertraline HCl (Sertraline Hcl 100 Mg Tablet) 100 mg PO QAM [facility] Stop: 01/09/22 08:59 Last Admin: 12/10/21 08:30 Dose: 100 mg
[2021-12-10] MEDS: POTASSIUM CHLORIDE CRTAB 20 MEQ TABCR PO SCH (12:05)
--- NOTE | 2021-12-10 12:17 | Electrocardiogram Report ---
Test Reason : Blood Pressure : / mmHG Vent. Rate : 074 BPM Atrial Rate : 074 BPM P-R Int : 208 ms QRS Dur : 094 ms QT Int : 408 ms P-R-T Axes : 025 -40 177 degrees QTc Int : 452 ms Sinus rhythm with 1st degree AV block Left axis deviation Moderate voltage criteria for LVH, may be normal variant Abnormal ECG When compared with ECG of 04-DEC-2021 10:07, Incomplete right bundle branch block is no longer Present Nonspecific T wave abnormality, worse in Anterior leads Confirmed by Wei Clark ([id number]) on 12/10/2021 12:17:16 PM Referred By: REFERRED SELF Confirmed By:Jose Clark
[2021-12-10] MEDS: CARBIDOPA/LEVODOPA 50/200MG EXT REL TAB PO SCH (20:20)
[2021-12-10] MEDS: CYANOCOBALAMIN (B-12) 500 MCG TABLET PO SCH (20:20)
[2021-12-10] MEDS: ATORVASTATIN 40 MG TAB PO SCH (20:20)
--- NOTE | 2021-12-10 21:18 | Hospitalist Progress Note ---
Date of Service December 10, 2021 Assessment & Plan (1) Acute hypoxemic respiratory failure: Plan: Acute on chronic systolic heart failure (EF 40%, TTE 2021) Elevated Troponin: Present on admission with worsening shortness of breath CXR on admission showed Persistent pulmonary edema and small bilateral pleural effusions. Troponin peaked to 47.7, then trending down to 42.9 Received Lasix 40 mg IV in the ER LastEcho EF: 30-35% from last admission. She was starting for Lasix 40mg IV x2 dose Cardiology on board As per cardiology due to or orthostatic hypertension from Parkinson med, it is challenging to schedule for lasix Florinef likely contributing factor. will discontinue. Trial of low dose midodrine initiated. Plan to discharge on lasix 20mg daily Monitor BMP while on Lasix Clinically improves Elevated troponin Mostly demand ischemia due to acute CHF Troponin peaked to 47.7, then trending down to Denies any chest pain Continue aspirin, statin and metoprolol Parkinsons Disease: Diagnosed 13 years ago. Per patient and family she appears to be worsening with her memory and ability to perform IADL's. Fludrocortisone Rx started by neurologist to prevent levodopa induced hypotension as precipitant Plan d/c florinef and starting on Midodrine 2.5 BID Orthostatic Hypotension Related to Parkinson medication Florinef discontinued Midodrine 2.5 mg BID started Continue monitor BP Hypokalemia K 3.6 today Potassium replaced Continue monitor BMP Gastroparesis: Follows Mahesh Bridges with GI and has received Botox injection June 2021 Continue monitor Hypothyroidism: TSH on admission 34.8 Levothyroxine increased to 125mcg on admission Check TSH in 4 to 6 weeks DVT px on Lovenox CODE status DNR Ms. Kacie Serrano, contact #[phone]. Admission and Anticipated Discharge Date Admission Date: December 09, 2021 Subjective Pt was seen and examined for follow up of SOB Lying in bed with no acute distress Pt said that she feels better now Denies any chest pain, palpitation, dizziness and SOB Review of Systems Review of Systems: All systems reviewed & are unremarkable except as noted in Subjective Physical Exam Physical Exam: General- No acute distress Head- atraumatic Eyes- PERRL, EOMI, ENT- oropharynx clear Neck- supple, no JVD Lungs- clear to auscultation, +diminished BS Heart- regular rhythm; no murmur Abdomen- normal bowel sounds, soft, nontender Extremities- no calf tenderness Neuro- alert, oriented x 3; PERRL, EOMI; no facial palsy; no dysarthria Skin- warm & dry Results & Data Results & Data ([facility]) Vital Signs (Past 12 Hours) Vital Signs Temp Pulse Pulse Resp BP Pulse Ox O2 Del Method 12/10/21 20:19 36.3 C L 67 16 121/70 95 Room Air 12/10/21 16:14 65 110/76 12/10/21 16:00 36.6 C 62 19 97/57 L 97 Room Air 12/10/21 15:00 68 12/10/21 11:31 36.6 C 81 20 115/67 95 Room Air
[2021-12-11] MEDS: LEVOTHYROXINE SODIUM 125 MCG TABLET PO SCH (05:36)
[2021-12-11] MEDS: CARBIDOPA/LEVODOPA 25/100MG TAB PO SCH ×4 (08:15→19:59)
[2021-12-11] MEDS: PANTOprazole 40 MG TAB PO SCH (08:15)
[2021-12-11] MEDS: CETIRIZINE HCL 10 MG TABLET PO SCH (08:16)
[2021-12-11] MEDS: CEROVITE ADV FORMULA TAB PO SCH (08:16)
[2021-12-11] MEDS: DOCUSATE SODIUM/SENNA 50/8.6MG TAB PO SCH (08:16)
[2021-12-11] MEDS: FAMOTIDINE 40 MG TABLET PO SCH (08:16)
[2021-12-11] MEDS: METOPROLOL SUCC 25MG EXT REL TAB PO SCH (08:16)
[2021-12-11] MEDS: ASPIRIN 81 MG ECTAB PO SCH (08:16)
[2021-12-11] MEDS: POTASSIUM CHLORIDE CRTAB 20 MEQ TABCR PO SCH (08:16)
[2021-12-11] MEDS: MIDODRINE HCL 2.5 MG TAB PO SCH ×2 (08:16→17:29)
[2021-12-11] MEDS: ENOXAPARIN INJ 40 MG/0.4 ML SYR SQ SCH ×2 (08:17→08:28)
[2021-12-11] MEDS: POLYETHYLENE (MIRALAX) 17 GM PACK PO SCH (08:17)
[2021-12-11] MEDS: SERTRALINE HCL 100 MG TABLET PO SCH (08:17)
--- NOTE | 2021-12-11 08:49 | Cardiology Progress Note ---
Date of Service December 11, 2021 Assessment & Plan (1) Acute on chronic systolic HF (heart failure): (2) Hypoxia: (3) Parkinsons disease: (4) HFrEF (heart failure with reduced ejection fraction): (5) Hypokalemia: Plan This is patient's second admission in the last 10 days for CHF exacerbation Florinef likely contributing factor. Agree with discontinuation. Trial of low dose midodrine initiated. BP currently controlled. Symptoms improved with IV diuresis over the last few days. Currently appears euvolemic and at baseline. Mild rise in creatinine. Hold diuretics today. Discharge on oral furosemide 20 mg with low dose midodrine. Will arrange cardiology follow up in [place] or [facility] within 2-4 weeks Stable from cardiac perspective for discharge. Case to be discussed with Dr. Crystal. Admission and Anticipated Discharge Date Admission Date: December 09, 2021 Supervising Physician Co-Signing Physician Notes I have seen and examined the patient. I reviewed the medical record and discussed the case with Ms. Plummer. I agree the patient is clinically ready to be discharged for outpatient follow-up. Subjective Patient resting comfortably out of bed. SOB improved. Denies chest pain. Anxious for discharge. No fever, cough, chills. No dizziness. BP controlled. Review of Systems Review of Systems: All systems reviewed & are unremarkable except as noted in HPI & below Physical Exam Constitutional: WD/WN, vitals as above Respiratory: no respiratory distress and no labored breathing Auscultation: lungs clear to auscultation bilaterally Cardiovascular: Rate/Rhythm: regular rate and regular rhythm Heart Sounds: + murmur (II/ systolic murmur) Vessels: no JVD Extremities: no edema Gastrointestinal (Abdomen): normal bowel sounds, soft, nontender, no hepatosplenomegaly Neurologic: PERRL, EOMI, accommodation nl, no face palsy, no dysarthria Motor/Sensory: + tremor Psychiatric: A+Ox3, euthymic affect Results & Data ([facility]) Vital Signs (Past 12 Hours) Vital Signs Temp Pulse Pulse Resp BP Pulse Ox O2 Del Method 12/11/21 07:47 36.6 C 65 20 116/71 96 Room Air 12/11/21 02:59 36.7 C 62 18 116/68 97 Room Air 12/10/21 23:35 36.5 C 68 16 111/72 92 Room Air 12/10/21 23:10 62 12/10/21 20:45 Room Air Laboratory Results Comprehensive Metabolic Panel 12/11/21 Range/Units 09:13 Sodium 140 (136-145) mmol/L Potassium 3.6 (3.5-5.1) mmol/L Chloride 102 (98-107) mmol/L Carbon Dioxide 30 (21-32) mmol/L BUN 29 H (6-23) mg/dl Creatinine 1.33 H D (0.6-1.2) mg/dl Glucose 141 H (70-99(Fasting)) mg/dl Calcium 9.3 (8.5-10.1) mg/dl Intake and Output 12/10/21 12/11/21 12/11/21 22:59 06:59 14:59 Intake Total 5 Output Total Balance 99 / Intake: Oral 5 Output: # Bowel Movements 1 / 2 Other: Other Intake Source nothing overnight # Unmeasured Voids 1 Weight 57.5 kg Weight Measurement Method Standing Scale Diagnostic Findings Telemetry reviewed: NSR in the 60's. Medications Administered Current Inpatient Medications Acetaminophen (Acetaminophen 325 Mg Tab) 650 mg PO Q4H PRN PRN Reason: Pain or Fever Stop: 01/09/22 00:24 Aspirin (Aspirin 81 Mg Ectab) 81 mg PO QAM [facility] Stop: 01/09/22 08:59 Last Admin: 12/11/21 08:16 Dose: 81 mg Atorvastatin Calcium (Atorvastatin 40 Mg Tab) 40 mg PO [facility] Stop: 01/09/22 20:59 Last Admin: 12/10/21 20:20 Dose: 40 mg Carbidopa/Levodopa (Carbidopa/Levodopa 25/100mg Tab) 1.5 tab PO QID [facility] Stop: 01/09/22 08:59 Last Admin: 12/11/21 08:15 Dose: 1.5 tab Carbidopa/Levodopa (Carbidopa/Levodopa 50/200mg Ext Rel Tab) 1 tab PO HS [facility] Stop: 01/09/22 20:59 Last Admin: 12/10/21 20:20 Dose: 1 tab Carbidopa/Levodopa (Carbidopa/Levodopa 25/100mg Tab Odt) 1 tab PO DAILY PRN PRN Reason: Tremors Stop: 01/09/22 00:24 Cetirizine HCl (Cetirizine Hcl 10 Mg Tablet) 10 mg PO QAM [facility] Stop: 01/09/22 08:59 Last Admin: 12/11/21 08:16 Dose: 10 mg Cyanocobalamin (Cyanocobalamin (B-12) 500 Mcg Tablet) 1,000 mcg PO QPM [facility] Stop: 01/09/22 20:59 Last Admin: 12/10/21 20:20 Dose: 1,000 mcg Enoxaparin Sodium (Enoxaparin Inj 40 Mg/0.4 Ml Syr) 40 mg SQ QAM [facility] Stop: 01/09/22 08:59 Last Admin: 12/11/21 08:28 Dose: Not Given Famotidine (Famotidine 40 Mg Tablet) 40 mg PO DAILY [facility] Stop: 01/09/22 08:59 Last Admin: 12/11/21 08:16 Dose: 40 mg Levothyroxine Sodium (Levothyroxine Sodium 125 Mcg Tablet) 125 mcg PO DAILYBB [facility] Stop: 01/09/22 06:29 Last Admin: 12/11/21 05:36 Dose: 125 mcg Melatonin (Melatonin 3 Mg Tab) 6 mg PO HSZ PRN PRN Reason: Sleep Stop: 01/09/22 00:39 Metoprolol Succinate (Metoprolol Succ 25mg Ext Rel Tab) 12.5 mg PO QAM [facility] Stop: 01/09/22 08:59 Last Admin: 12/11/21 08:16 Dose: 12.5 mg Midodrine (Midodrine Hcl 2.5 Mg Tab) 2.5 mg PO [id number] [facility] Stop: 01/09/22 08:59 Last Admin: 12/11/21 08:16 Dose: 2.5 mg Multivitamins/Minerals (Cerovite Adv Formula Tab) 1 tab PO QAM [facility] Stop: 01/09/22 08:59 Last Admin: 12/11/21 08:16 Dose: 1 tab Nitroglycerin (Nitroglycerin Sl 0.4 Mg/Tab Tab) 0.4 mg SL UD PRN PRN Reason: Chest Pain Stop: 01/09/22 00:24 Pantoprazole Sodium (Pantoprazole 40 Mg Tab) 40 mg PO DAILY [facility] Stop: 01/09/22 08:59 Last Admin: 12/11/21 08:15 Dose: 40 mg Polyethylene Glycol (Polyethylene (Miralax) 17 Gm Pack) 17 gm PO DAILY [facility] Stop: 01/09/22 08:59 Last Admin: 12/11/21 08:17 Dose: 17 gm Potassium Chloride (Potassium Chloride Crtab 20 Meq Tabcr) 20 meq PO QAM [facility] Stop: 01/09/22 10:29 Last Admin: 12/11/21 08:16 Dose: 20 meq Senna/Docusate Sodium (Docusate Sodium/Senna 50/8.6mg Tab) 2 tab PO QAM [facility] Stop: 01/09/22 08:59 Last Admin: 12/11/21 08:16 Dose: 2 tab Sertraline HCl (Sertraline Hcl 100 Mg Tablet) 100 mg PO QAM [facility] Stop: 01/09/22 08:59 Last Admin: 12/11/21 08:17 Dose: 100 mg
[2021-12-11 10:11] LABS: BUN Creatinine Ratio 21.8 (10-20); Calcium 9.3 mg/dl (8.5-10.1); Creatinine Clr Calc Pharmacy 25.4 ml/min; Est GFR (African American) 42.7 ml/min; Est GFR (Non-African American) 36.9 ml/min; Potassium 3.6 mmol/L (3.5-5.1)
[2021-12-11] MEDS: CARBIDOPA/LEVODOPA 50/200MG EXT REL TAB PO SCH (19:59)
[2021-12-11] MEDS: CYANOCOBALAMIN (B-12) 500 MCG TABLET PO SCH (19:59)
[2021-12-11] MEDS: ATORVASTATIN 40 MG TAB PO SCH (19:59)
[2021-12-11] MEDS ORDERED: diphenhydrAMINE Capsule 25 MG CAP PO ONE (22:03)
--- NOTE | 2021-12-11 23:46 | Hospitalist Progress Note ---
Date of Service December 11, 2021 Assessment & Plan (1) Acute hypoxemic respiratory failure: Plan: Acute on chronic systolic heart failure (EF 40%, TTE 2021) Elevated Troponin: Present on admission with worsening shortness of breath CXR on admission showed Persistent pulmonary edema and small bilateral pleural effusions. Troponin peaked to 47.7, then trending down to 42.9 Received Lasix 40 mg IV in the ER LastEcho EF: 30-35% from last admission. She was starting for Lasix 40mg IV, received 2 doses Cardiology on board As per cardiology due to or orthostatic hypertension from Parkinson med, it is challenging to schedule for lasix Florinef likely contributing factor, discontinued Continue low dose midodrine to help with BP Creatinine 1.3 today. No lasix given today Will discharge on lasix 20mg daily, starting tomorrow Ok from cardiology standpoint to discharge Check BMP i 5 to 7 days after discharge Clinically improves Elevated troponin Mostly demand ischemia due to acute CHF Troponin peaked to 47.7, then trending down to Denies any chest pain Continue aspirin, statin and metoprolol Parkinsons Disease: Diagnosed 13 years ago. Per patient and family she appears to be worsening with her memory and ability to perform IADL's. Fludrocortisone Rx started by neurologist to prevent levodopa induced hy potension as precipitant Plan d/c florinef and starting on Midodrine 2.5 BID Orthostatic Hypotension Related to Parkinson medication Florinef discontinued Continue Midodrine 2.5 mg BID Continue monitor BP stable Hypokalemia K 3.6 today Potassium replaced Continue monitor BMP Gastroparesis: Follows Mahesh Cyrus with GI and has received Botox injection June 2021 Continue monitor Hypothyroidism: TSH on admission 34.8 Levothyroxine increased to 125mcg on admission Check TSH in 4 to 6 weeks DVT px on Lovenox CODE status DNR Disposition Waiting for bed on to discharge to [facility] Ms. Kacie Serrano, contact #[phone]. Admission and Anticipated Discharge Date Admission Date: December 09, 2021 Subjective Pt was seen and examined for follow up of SOB Lying in bed with no acute distress Pt said that she feels fine would like patient to go to [facility] on discharge Call daughter Kacie over the phone to provide with update; unfortunately no one answered Pt is waiting for bed on to discharge to [facility] Denies any chest pain, palpitation, dizziness and SOB Review of Systems Review of Systems: All systems reviewed & are unremarkable except as noted in Subjective Physical Exam Physical Exam: General- No acute distress Head- atraumatic Eyes- PERRL, EOMI, ENT- oropharynx clear Neck- supple, no JVD Lungs- clear to auscultation, +diminished BS Heart- regular rhythm; no murmur Abdomen- normal bowel sounds, soft, nontender Extremities- no calf tenderness Neuro- alert, oriented x 3; PERRL, EOMI; no facial palsy; no dysarthria Skin- warm & dry Results & Data Results & Data ([facility]) Vital Signs (Past 12 Hours) Vital Signs Temp Pulse Pulse Resp BP Pulse Ox O2 Del Method 12/11/21 19:50 36.7 C 67 20 103/54 L 98 Room Air 12/11/21 16:36 67 12/11/21 15:24 36.7 C 67 18 107/67 98 Room Air 12/11/21 11:55 37.3 C 73 19 111/65 98 Room Air
[2021-12-12] MEDS: LEVOTHYROXINE SODIUM 125 MCG TABLET PO SCH (05:16)
--- NOTE | 2021-12-12 08:16 | Hospitalist Progress Note ---
Date of Service December 12, 2021 Assessment & Plan (1) Acute hypoxemic respiratory failure: Plan: Acute on chronic systolic heart failure (EF 40%, TTE 2021) Elevated Troponin: Present on admission with worsening shortness of breath CXR on admission showed Persistent pulmonary edema and small bilateral pleural effusions. Troponin peaked to 47.7, then trending down to 42.9 Received Lasix 40 mg IV in the ER LastEcho EF: 30-35% from last admission. She was starting for Lasix 40mg IV, received 2 doses Cardiology consulted As per cardiology due to or orthostatic hypotension from Parkinson med, it is challenging to schedule for lasix Florinef likely contributing factor, discontinued - discussed w/ pt's neurologist - ok to stop Continue low dose midodrine to help with BP Creatinine 1.39 today. No lasix given today Will discharge on lasix 20mg 3x/week, starting tomorrow Ok from cardiology standpoint to discharge Check BMP i 5 to 7 days after discharge Clinically improved Elevated troponin Mostly demand ischemia due to acute CHF Troponin peaked to 47.7, then trending down to Denies any chest pain Continue aspirin, statin and metoprolol Parkinsons Disease: Diagnosed 13 years ago. Per patient and family she appears to be worsening with her memory and ability to perform IADL's. Fludrocortisone Rx started by neurologist to prevent levodopa induced hypotension as precipitant d/c florinef and starting on Midodrine 2.5 BID Orthostatic Hypotension Related to Parkinson medication Florinef discontinued Continue Midodrine 2.5 mg BID Continue monitor BP stable Hypokalemia K 4.1 today Potassium replaced Continue monitor BMP Gastroparesis: Follows Mahesh Bridges with GI and has received Botox injection June 2021 Continue monitor Hypothyroidism: TSH on admission 34.8 Levothyroxine increased to 125mcg on admission Check TSH in 4 to 6 weeks DVT px on Lovenox CODE status DNR Disposition Waiting for bed on to discharge to [facility] Ms. Kacie Serrano, contact #[phone]. Admission and Anticipated Discharge Date Admission Date: December 09, 2021 Subjective Pt was seen and examined for follow up of SOB Sitting up in chair in no acute distress Pt says that she feels fine would like patient to go to [facility] on discharge Overnight she had some more tremors, now resolved Pt is waiting for bed on to discharge to [facility] Denies any chest pain, palpitation, dizziness or SOB Review of Systems Review of Systems: All systems reviewed & are unremarkable except as noted in Subjective Physical Exam Physical Exam: General- No acute distress Head- atraumatic Eyes- PERRL, EOMI, ENT- oropharynx clear Neck- supple, no JVD Lungs- clear to auscultation, +diminished BS at bases Heart- regular rhythm; no murmur Abdomen- normal bowel sounds, soft, nontender Extremities- no calf tenderness Neuro- alert, oriented x 3; PERRL, EOMI; no facial palsy; no dysarthria, moves extremities, no tremor on exam Skin- warm & dry Results & Data Results & Data ([facility]) Vital Signs (Past 12 Hours) Vital Signs Temp Pulse Pulse Resp BP Pulse Ox O2 Del Method 12/12/21 07:34 61 12/12/21 04:27 36.5 C 58 L 18 108/70 96 Room Air 12/11/21 23:00 69 12/11/21 23:40 36.9 C 63 16 91/59 L 96 Room Air Laboratory Results 12/12/21 Range/Units 08:42 Sodium 138 (136-145) mmol/L Potassium 4.1 (3.5-5.1) mmol/L Chloride 101 (98-107) mmol/L Carbon Dioxide 30 (21-32) mmol/L Anion Gap 7 (3-11) BUN 35 H (6-23) mg/dl Creatinine 1.39 H (0.6-1.2) mg/dl Est Cr Clr Drug Dosing 24.6 ml/min Est GFR ( Amer) 40.5 ml/min Est GFR (Non-Af Amer) 35.0 ml/min BUN/Creatinine Ratio 25.2 H (10-20) Glucose 108 H (70-99(Fasting)) mg/dl Calcium 9.3 (8.5-10.1) mg/dl Medications Administered Current Inpatient Medications Acetaminophen (Acetaminophen 325 Mg Tab) 650 mg PO Q4H PRN PRN Reason: Pain or Fever Stop: 01/09/22 00:24 Last Admin: 12/11/21 20:04 Dose: 325 mg Aspirin (Aspirin 81 Mg Ectab) [address] [facility]: 01/09/22 08:59 Last Admin: 12/11/21 08:16 Dose: 81 mg Atorvastatin Calcium (Atorvastatin 40 Mg Tab) 40 mg PO HS [facility] Stop: 01/09/22 20:59 Last Admin: 12/11/21 19:59 Dose: 40 mg Carbidopa/Levodopa (Carbidopa/Levodopa 25/100mg Tab) 1.5 tab PO QID [facility] Stop: 01/09/22 08:59 Last Admin: 12/11/21 19:59 Dose: 1.5 tab Carbidopa/Levodopa (Carbidopa/Levodopa 50/200mg Ext Rel Tab) 1 tab PO HS [facility] Stop: 01/09/22 20:59 Last Admin: 12/11/21 19:59 Dose: 1 tab Carbidopa/Levodopa (Carbidopa/Levodopa 25/100mg Tab Odt) 1 tab PO DAILY PRN PRN Reason: Tremors Stop: 01/09/22 00:24 Last Admin: 12/11/21 17:48 Dose: 1 tab Cetirizine HCl (Cetirizine Hcl 10 Mg Tablet) 10 mg PO QAM [facility] Stop: 01/09/22 08:59 Last Admin: 12/11/21 08:16 Dose: 10 mg Cyanocobalamin (Cyanocobalamin (B-12) 500 Mcg Tablet) 1,000 mcg PO QPM [facility] Stop: 01/09/22 20:59 Last Admin: 12/11/21 19:59 Dose: 1,000 mcg Enoxaparin Sodium (Enoxaparin Inj 40 Mg/0.4 Ml Syr) 40 mg SQ QAM [facility] Stop: 01/09/22 08:59 Last Admin: 12/11/21 08:28 Dose: Not Given Famotidine (Famotidine 40 Mg Tablet) 40 mg PO DAILY [facility] Stop: 01/09/22 08:59 Last Admin: 12/11/21 08:16 Dose: 40 mg Levothyroxine Sodium (Levothyroxine Sodium 125 Mcg Tablet) 125 mcg PO DAILYBB [facility] Stop: 01/09/22 06:29 Last Admin: 12/12/21 05:16 Dose: 125 mcg Melatonin (Melatonin 3 Mg Tab) 6 mg PO HSZ PRN PRN Reason: Sleep Stop: 01/09/22 00:39 Metoprolol Succinate (Metoprolol Succ 25mg Ext Rel Tab) 12.5 mg PO QAM [facility] Stop: 01/09/22 08:59 Last Admin: 12/11/21 08:16 Dose: 12.5 mg Midodrine (Midodrine Hcl 2.5 Mg Tab) 2.5 mg PO BID17 [facility] Stop: 01/09/22 08:59 Last Admin: 12/11/21 17:29 Dose: 2.5 mg Multivitamins/Minerals (Cerovite Adv Formula Tab) 1 tab PO QAM [facility] Stop: 01/09/22 08:59 Last Admin: 12/11/21 08:16 Dose: 1 tab Nitroglycerin (Nitroglycerin Sl 0.4 Mg/Tab Tab) 0.4 mg SL UD PRN PRN Reason: Chest Pain Stop: 01/09/22 00:24 Pantoprazole Sodium (Pantoprazole 40 Mg Tab) 40 mg PO DAILY [facility] Stop: 01/09/22 08:59 Last Admin: 12/11/21 08:15 Dose: 40 mg Polyethylene Glycol (Polyethylene (Miralax) 17 Gm Pack) 17 gm PO DAILY [facility] Stop: 01/09/22 08:59 Last Admin: 12/11/21 08:17 Dose: 17 gm Potassium Chloride (Potassium Chloride Crtab 20 Meq Tabcr) 20 meq PO QAM [facility] Stop: 01/09/22 10:29 Last Admin: 12/11/21 08:16 Dose: 20 meq Senna/Docusate Sodium (Docusate Sodium/Senna 50/8.6mg Tab) 2 tab PO QAM [facility] Stop: 01/09/22 08:59 Last Admin: 12/11/21 08:16 Dose: 2 tab Sertraline HCl (Sertraline Hcl 100 Mg Tablet) 100 mg PO QAM [facility] Stop: 01/09/22 08:59 Last Admin: 12/11/21 08:17 Dose: 100 mg
[2021-12-12] MEDS: CARBIDOPA/LEVODOPA 25/100MG TAB PO SCH ×4 (08:39→20:26)
[2021-12-12] MEDS: SERTRALINE HCL 100 MG TABLET PO SCH (08:40)
[2021-12-12] MEDS: POTASSIUM CHLORIDE CRTAB 20 MEQ TABCR PO SCH (08:40)
[2021-12-12] MEDS: METOPROLOL SUCC 25MG EXT REL TAB PO SCH (08:40)
[2021-12-12] MEDS: POLYETHYLENE (MIRALAX) 17 GM PACK PO SCH (08:40)
[2021-12-12] MEDS: MIDODRINE HCL 2.5 MG TAB PO SCH ×2 (08:40→17:12)
[2021-12-12] MEDS: DOCUSATE SODIUM/SENNA 50/8.6MG TAB PO SCH (08:40)
[2021-12-12] MEDS: CEROVITE ADV FORMULA TAB PO SCH (08:40)
[2021-12-12] MEDS: PANTOprazole 40 MG TAB PO SCH (08:40)
[2021-12-12] MEDS: FAMOTIDINE 40 MG TABLET PO SCH (08:41)
[2021-12-12] MEDS: ASPIRIN 81 MG ECTAB PO SCH (08:41)
[2021-12-12] MEDS: CETIRIZINE HCL 10 MG TABLET PO SCH (08:41)
[2021-12-12] MEDS: ENOXAPARIN INJ 40 MG/0.4 ML SYR SQ SCH (08:45)
[2021-12-12 09:49] LABS: BUN Creatinine Ratio 25.2 (10-20); Calcium 9.3 mg/dl (8.5-10.1); Creatinine Clr Calc Pharmacy 24.6 ml/min; Est GFR (African American) 40.5 ml/min; Potassium 4.1 mmol/L (3.5-5.1)
[2021-12-12] MEDS ORDERED: FUROSEMIDE 20 MG TAB PO ONE (19:28)
[2021-12-12] MEDS: ATORVASTATIN 40 MG TAB PO SCH (20:27)
[2021-12-12] MEDS: CYANOCOBALAMIN (B-12) 500 MCG TABLET PO SCH (20:27)
[2021-12-12] MEDS: CARBIDOPA/LEVODOPA 50/200MG EXT REL TAB PO SCH (22:20)
[2021-12-13] MEDS: LEVOTHYROXINE SODIUM 125 MCG TABLET PO SCH (05:39)
[2021-12-13 07:23] LABS: BUN Creatinine Ratio 32.5 (10-20); Calcium 9.1 mg/dl (8.5-10.1); Creatinine Clr Calc Pharmacy 30.3 ml/min; Est GFR (African American) 51.5 ml/min; Est GFR (Non-African American) 44.4 ml/min; Magnesium 2.3 mg/dl (1.7-2.4); Potassium 4.6 mmol/L (3.5-5.1)
[2021-12-13] MEDS: POLYETHYLENE (MIRALAX) 17 GM PACK PO SCH (08:51)
[2021-12-13] MEDS: SERTRALINE HCL 100 MG TABLET PO SCH (08:53)
[2021-12-13] MEDS: CEROVITE ADV FORMULA TAB PO SCH (08:53)
[2021-12-13] MEDS: POTASSIUM CHLORIDE CRTAB 20 MEQ TABCR PO SCH (08:53)
[2021-12-13] MEDS: PANTOprazole 40 MG TAB PO SCH (08:53)
[2021-12-13] MEDS: METOPROLOL SUCC 25MG EXT REL TAB PO SCH (08:54)
[2021-12-13] MEDS: MIDODRINE HCL 2.5 MG TAB PO SCH (08:54)
[2021-12-13] MEDS: ASPIRIN 81 MG ECTAB PO SCH (08:54)
[2021-12-13] MEDS: DOCUSATE SODIUM/SENNA 50/8.6MG TAB PO SCH (08:54)
[2021-12-13] MEDS: CETIRIZINE HCL 10 MG TABLET PO SCH (08:55)
[2021-12-13] MEDS: CARBIDOPA/LEVODOPA 25/100MG TAB PO SCH ×2 (08:55→12:53)
[2021-12-13] MEDS: FAMOTIDINE 40 MG TABLET PO SCH (08:55)
[2021-12-13] MEDS: ENOXAPARIN INJ 40 MG/0.4 ML SYR SQ SCH (08:56)
--- NOTE | 2021-12-13 10:33 | Hospitalist Progress Note ---
Date of Service December 13, 2021 Assessment & Plan (1) Acute hypoxemic respiratory failure: Plan: Acute on chronic systolic heart failure (EF 40%, TTE 2021) Elevated Troponin: Present on admission with worsening shortness of breath CXR on admission showed Persistent pulmonary edema and small bilateral pleural effusions. Troponin peaked to 47.7, then trending down to 42.9 Received Lasix 40 mg IV in the ER LastEcho EF: 30-35% from last admission. She was starting for Lasix 40mg IV, received 2 doses Cardiology consulted As per cardiology due to or orthostatic hypotension from Parkinson med, it is challenging to schedule for lasix Florinef likely contributing factor, discontinued - discussed w/ pt's neurologist - ok to stop Continue low dose midodrine to help with BP Creatinine 1.39 today. No lasix given today Will discharge on lasix 20 mg 3x/week - continue for 1 week and then re-assess if pt still needs lasix Ok from cardiology standpoint to discharge Check BMP 5 to 7 days after discharge Clinically improved Elevated troponin Mostly demand ischemia due to acute CHF Troponin peaked to 47.7, then trending down to Denies any chest pain Continue aspirin, statin and metoprolol Parkinsons Disease: Diagnosed 13 years ago. Per patient and family she appears to be worsening with her memory and ability to perform IADL's. Fludrocortisone Rx started by neurologist to prevent levodopa induced hypotension as precipitant d/c florinef and starting on Midodrine 2.5 BID Orthostatic Hypotension Related to Parkinson medication Florinef discontinued Continue Midodrine 2.5 mg BID Continue monitor BP stable Hypokalemia resolved Continue monitor BMP Gastroparesis: Follows Mahesh Bridges with GI and has received Botox injection June 2021 Continue monitor Hypothyroidism: TSH on admission 34.8 Levothyroxine increased to 125mcg on admission Check TSH in 4 to 6 weeks DVT px on Lovenox CODE status DNR Disposition Waiting for bed on to discharge to [facility] Ms. Kacie Serrano, contact #[phone]. Admission and Anticipated Discharge Date Admission Date: December 09, 2021 Subjective Pt was seen and examined for follow up of SOB Sitting up in chair in no acute distress Pt says that she feels well Now breathing comfortably on RA Overnight she had some more tremors, now resolved Denies any chest pain, shortness of breath, palpitation, dizziness Plan to DC to [facility] Review of Systems Review of Systems: All systems reviewed & are unremarkable except as noted in Subjective Physical Exam Physical Exam: General- No acute distress Head- atraumatic Eyes- PERRL, EOMI, ENT- oropharynx clear Neck- supple, no JVD Lungs- clear to auscultation, +diminished BS at bases Heart- regular rhythm; no murmur Abdomen- normal bowel sounds, soft, nontender Extremities- no calf tenderness Neuro- alert, oriented x 3; PERRL, EOMI; no facial palsy; no dysarthria, moves extremities, no tremor on exam Skin- warm & dry Results & Data Results & Data ([facility]) Vital Signs (Past 12 Hours) Vital Signs Temp Pulse Pulse Resp BP Pulse Ox O2 Del Method 12/13/21 08:20 36.5 C 66 14 110/60 97 Room Air 12/13/21 08:00 63 12/13/21 03:39 37.0 C 63 18 118/73 96 Room Air 12/12/21 23:00 63 12/12/21 23:03 36.7 C 64 14 124/77 99 Room Air Laboratory Results 12/13/21 Range/Units 06:00 Sodium 138 (136-145) mmol/L Potassium 4.6 (3.5-5.1) mmol/L Chloride 102 (98-107) mmol/L Carbon Dioxide 30 (21-32) mmol/L Anion Gap 6 (3-11) BUN 37 H (6-23) mg/dl Creatinine 1.14 (0.6-1.2) mg/dl Est Cr Clr Drug Dosing 30.3 ml/min Est GFR ( Amer) 51.5 ml/min Est GFR (Non-Af Amer) 44.4 ml/min BUN/Creatinine Ratio 32.5 H (10-20) Glucose 87 (70-99(Fasting)) mg/dl Calcium 9.1 (8.5-10.1) mg/dl Magnesium 2.3 (1.7-2.4) mg/dl Medications Administered Current Inpatient Medications Acetaminophen (Acetaminophen 325 Mg Tab) 650 mg PO Q4H PRN PRN Reason: Pain or Fever Stop: 01/09/22 00:24 Last Admin: 12/11/21 20:04 Dose: 325 mg Aspirin (Aspirin 81 Mg Ectab) 81 mg PO QAM [facility] Stop: 01/09/22 08:59 Last Admin: 12/13/21 08:54 Dose: 81 mg Atorvastatin Calcium (Atorvastatin 40 Mg Tab) 40 mg PO HS [facility] Stop: 01/09/22 20:59 Last Admin: 12/12/21 20:27 Dose: 40 mg Carbidopa/Levodopa (Carbidopa/Levodopa 25/100mg Tab) 1.5 tab PO QID [facility] Stop: 01/09/22 08:59 Last Admin: 12/13/21 08:55 Dose: 1.5 tab Carbidopa/Levodopa (Carbidopa/Levodopa 50/200mg Ext Rel Tab) 1 tab PO HS [facility] Stop: 01/09/22 20:59 Last Admin: 12/12/21 22:20 Dose: 1 tab Carbidopa/Levodopa (Carbidopa/Levodopa 25/100mg Tab Odt) 1 tab PO DAILY PRN PRN Reason: Tremors Stop: 01/09/22 00:24 Last Admin: 12/11/21 17:48 Dose: 1 tab Cetirizine HCl (Cetirizine Hcl 10 Mg Tablet) 10 mg PO QAM [facility] Stop: 01/09/22 08:59 Last Admin: 12/13/21 08:55 Dose: 10 mg Cyanocobalamin (Cyanocobalamin (B-12) 500 Mcg Tablet) 1,000 mcg PO QPM [facility] Stop: 01/09/22 20:59 Last Admin: 12/12/21 20:27 Dose: 1,000 mcg Enoxaparin Sodium (Enoxaparin Inj 40 Mg/0.4 Ml Syr) 40 mg SQ QAM [facility] Stop: 01/09/22 08:59 Last Admin: 12/13/21 08:56 Dose: Not Given Famotidine (Famotidine 40 Mg Tablet) 40 mg PO DAILY [facility] Stop: 01/09/22 08:59 Last Admin: 12/13/21 08:55 Dose: 40 mg Levothyroxine Sodium (Levothyroxine Sodium 125 Mcg Tablet) 125 mcg PO DAILYBB [facility] Stop: 01/09/22 06:29 Last Admin: 12/13/21 05:39 Dose: 125 mcg Melatonin (Melatonin 3 Mg Tab) 6 mg PO HSZ PRN PRN Reason: Sleep Stop: 01/09/22 00:39 Metoprolol Succinate (Metoprolol Succ 25mg Ext Rel Tab) 12.5 mg PO QAM [facility] Stop: 01/09/22 08:59 Last Admin: 12/13/21 08:54 Dose: 12.5 mg Midodrine (Midodrine Hcl 2.5 Mg Tab) 2.5 mg PO [id number] [facility] Stop: 01/09/22 08:59 Last Admin: 12/13/21 08:54 Dose: 2.5 mg Multivitamins/Minerals (Cerovite Adv Formula Tab) 1 tab PO QAM [facility] Stop: 01/09/22 08:59 Last Admin: 12/13/21 08:53 Dose: 1 tab Nitroglycerin (Nitroglycerin Sl 0.4 Mg/Tab Tab) 0.4 mg SL UD PRN PRN Reason: Chest Pain Stop: 01/09/22 00:24 Pantoprazole Sodium (Pantoprazole 40 Mg Tab) 40 mg PO DAILY [facility] Stop: 01/09/22 08:59 Last Admin: 12/13/21 08:53 Dose: 40 mg Polyethylene Glycol (Polyethylene (Miralax) 17 Gm Pack) 17 gm PO DAILY [facility] Stop: 01/09/22 08:59 Last Admin: 12/13/21 08:51 Dose: 17 gm Potassium Chloride (Potassium Chloride Crtab 20 Meq Tabcr) 20 meq PO QAM [facility] Stop: 01/09/22 10:29 Last Admin: 12/13/21 08:53 Dose: 20 meq Senna/Docusate Sodium (Docusate Sodium/Senna 50/8.6mg Tab) 2 tab PO QAM [facility] Stop: 01/09/22 08:59 Last Admin: 12/13/21 08:54 Dose: 2 tab Sertraline HCl (Sertraline Hcl 100 Mg Tablet) 100 mg PO QAM [facility] Stop: 01/09/22 08:59 Last Admin: 12/13/21 08:53 Dose: 100 mg
--- NOTE | 2021-12-13 10:52 | Discharge Summary ---
Date of Service December 13, 2021 Admission HPI Per Admitting Provider History obtained from patient and records. Medical history significant for chronic systolic heart failure (EF 40%, TTE 2021), CAD status post stent, PFO, hypertension, hyperlipidemia, COPD as per records, Parkinson's disease, hypothyroidism, prediabetes, GERD, gastroparesis, history subdural hematoma, orthostatic hypotension on Fludrocortisone. Patient seen by [facility] [place]ist on follow-up visit 2 months ago. For Parkinson's disease and essential tremors. Patient switched to slow release carbidopa/levodopa. Fludrocortisone initiated to prevent orthostatic hypotension from levodopa. Last confinement December 04 to 2021 for decompensated heart failure. Patient still short of breath following discharge. Worse with exertion. No chest pain, no cough symptoms. Patient tries to be compliant with home medications. Patient thinks she may not be able to take care of herself at home where she resides with her . Worsening shortness of breath today. O2 sats noted to be 80s on room air. Patient brought to the ER for evaluation. IV Lasix administered for CHF. 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, lives with Admission Exam Per Admitting Provider GENERAL: Slightly uncomfortable, no respiratory distress SKIN: normal color, warm HEENT: [place] palpebral conjunctivae, no ptosis, moist buccal mucosa, nasal cannula in place NECK : Supple, no tenderness CHEST : Decreased breath sounds, no tenderness HEART : RRR, systolic murmur ABDOMEN: Some distention, nontender EXTREMITIES : Minimal LE swelling, no LE tenderness, no other conspicuous deformities noted NEUROLOGIC : Coherent, no facial asymmetry, tremulous, gait and stance not assessed Principal Diagnosis (1) Acute on chronic systolic HF (heart failure): (2) Hypoxia: (3) Parkinsons disease: (4) Hypokalemia: Discharge Exam General- No acute distress Head- atraumatic Eyes- PERRL, EOMI, ENT- oropharynx clear Neck- supple, no JVD Lungs- clear to auscultation, +diminished BS at bases Heart- regular rhythm; no murmur Abdomen- normal bowel sounds, soft, nontender Extremities- no calf tenderness Neuro- alert, oriented x 3; PERRL, EOMI; no facial palsy; no dysarthria, moves extremities, no tremor on exam Skin- warm & dry Discharge Data Allergies Allergy/AdvReac Type Severity Reaction Status Date / Time celecoxib AdvReac Intermediate GI SYMPTOMS Verified 12/04/21 13:41 aspirin AdvReac Mild Gastrointestinal Verified 12/04/21 13:41 Upset with 325mg dose. hydrocodone AdvReac Unknown STOMACH Verified 12/04/21 13:41 IRRITATION Consultations 12/09/21 22:37 ED Decision to Admit Stat 12/10/21 00:25 Consult Cardiology Routine Hospital Course (1) Acute hypoxemic respiratory failure: Acute on chronic systolic heart failure (EF 40%, TTE 2021) Elevated Troponin: Present on admission with worsening shortness of breath CXR on admission showed Persistent pulmonary edema and small bilateral pleural effusions. Troponin peaked to 47.7, then trending down to 42.9 Received Lasix 40 mg IV in the ER LastEcho EF: 30-35% from last admission. She was starting for Lasix 40mg IV, received 2 doses Cardiology consulted As per cardiology due to or orthostatic hypotension from Parkinson med, it is challenging to schedule for lasix Florinef likely contributing factor, discontinued - discussed w/ pt's neurologist - ok to stop Continue low dose midodrine to help with BP Creatinine 1.39 today. No lasix given today Will discharge on lasix 20 mg 3x/week - continue for 1 week and then re-assess if pt still needs lasix Ok from cardiology standpoint to discharge Check BMP 5 to 7 days after discharge Clinically improved Elevated troponin Mostly demand ischemia due to acute CHF Troponin peaked to 47.7, then trending down to Denies any chest pain Continue aspirin, statin and metoprolol Parkinsons Disease: Diagnosed 13 years ago. Per patient and family she appears to be worsening with her memory and ability to perform IADL's. Fludrocortisone Rx started by neurologist to prevent levodopa induced hypotension as precipitant d/c florinef and starting on Midodrine 2.5 BID Orthostatic Hypotension Related to Parkinson medication Florinef discontinued Continue Midodrine 2.5 mg BID Continue monitor BP stable Hypokalemia resolved Continue monitor BMP Gastroparesis: Follows Mahesh Bridges with GI and has received Botox injection June 2021 Continue monitor Hypothyroidism: TSH on admission 34.8 Levothyroxine increased to 125mcg on admission Check TSH in 4 to 6 weeks CODE status DNR Disposition Waiting for bed on to discharge to [facility] Ms. Kacie Serrano, contact #[phone]. Total Time Total Time Spent Total Time Spent (In Minutes): 40 Discharge Plan Discharge Items Patient Disposition: Transfer Residential Fac Reason For Visit: RESPIRATORY FAILURE Discharge Diagnosis: (1) Acute on chronic systolic HF (heart failure): (2) Hypoxia: (3) Parkinsons disease: (4) Hypokalemia: Condition on Discharge: Fair Activity: Per Instructions section Non-emergency contact: Primary Care Provider, Trust Manager and Neurologist Call non-emergency contact if: you have any medication questions and your symptoms worsen Follow-up/Referrals: Raisa Martin MD [Primary Care Provider] - Diet: Heart Healthy Fluids: 2000ml (8 cups) Addtl Attending Provider Instructions: Stop taking fludrocortisone. Take midodrine 2.5 mg twice daily. Take furosemide 20 mg Friday, for 1 week, then reassess with y our primary care doctor any further need for Lasix. Also recommend close neurology follow-up. Pending Studies at Discharge: No Stand-Alone Forms: My [facility] Skilled Items Patient informed of condition?: Yes DNR: Yes Discharge Level of Care: Skilled Communicable Disease: No Discharge Prognosis: Stable Lines: None Urinary Catheter: No Medications and DC Order Prescriptions: New midodrine 2.5 mg Tablet 2.5 mg PO BID Qty: 60 0RF Continued atorvastatin 40 mg Tablet 40 mg PO HS melatonin 5 mg Tablet 5 mg PO HS cetirizine [Zyrtec] 10 mg Tablet 10 mg PO QAM sertraline 100 mg tablet 100 mg PO QAM sennosides-docusate sodium [Stool Softener-Laxative] 8.6-50 mg tablet 2 tab PO QAM carbidopa-levodopa [Sinemet] 25-100 mg tablet 1.5 tab PO QID Rx Instructions: take in morning, lunch, evening and night ok to take an extra tablet if needed carbidopa-levodopa 50-200 mg tablet extended release 1 tab PO HS cyanocobalamin (vitamin B-12) [Vitamin B-12] 1,000 mcg Tablet 1,000 mcg PO QPM aspirin 81 mg Tablet,Delayed Release (Dr/Ec) 81 mg PO QAM cholecalciferol (vitamin D3) [Vitamin D3] 25 mcg (1,000 unit) Capsule 25 mcg PO QAM Ocuvite with Lutein 1,000 unit-200 mg-60 unit-2 mg Tablet 1 tab PO QAM albuterol sulfate 90 mcg/actuation Hfa Aerosol Inhaler 2 puff INHALATION QID metoprolol succinate 25 mg Tablet Extended Release 24 Hr 12.5 mg PO QAM 30 Days Qty: 15 1RF carbidopa-levodopa 25-100 mg Tablet,Disintegrating 1 tab PO DAILY PRN (Reason: Tremors) 30 Days Qty: 30 1RF acetaminophen 325 mg tablet 975 mg PO Q4 PRN (Reason: Fever Or Pain) polyethylene glycol 3350 [Miralax] 17 gram Powder In Packet 17 g PO DAILY ondansetron HCl 4 mg tablet 4 mg PO Q6 PRN (Reason: Nausea) famotidine 40 mg tablet 40 mg PO DAILY pantoprazole 40 mg tablet,delayed release (DR/EC) 40 mg PO DAILY levothyroxine [Synthroid] 125 mcg Tablet 125 mcg PO DAILYBB Qty: 30 0RF Changed furosemide 20 mg tablet 20 mg PO .MWF Qty: 3 0RF Rx Instructions: take M W F for 1 week Discontinued fludrocortisone 0.1 mg tablet 0.1 mg PO QAM Rx Instructions: Patient states she takes 1/2 tab per [facility]. Discharge Orders: Discharge Order (Routine); Ordered 12/13/21 Ordered By: Hieu Still Admission Data Admit Date/Time: 12/09/21 23:26 Attending Provider: Hieu Still Admit Provider: Dustin Unger Primary Care Provider: Rasia Martin Other Providers: Dustin Unger ; Vin Saleh ; Jacoby Baldwin ; Eugene Ferro ; Cyrus Coles ; Jony Crystal ; Murali Garcia ; Luisa Plummer ; Rere Melendez ; Britany Miller ; Jett Ken ; Grace Matthews ; Tiffanie Hansen
== END 2021-12-13 13:19 | DRG 291 ==
LOC: ED 18:24 → SUATTDRO 23:26 → 2S 23:26
DX: E87.6 Hypokalemia; Z66 Do not resuscitate; J96.01 Acute respiratory failure with hypoxia; I95.1 Orthostatic hypotension; I50.23 Acute on chronic systolic (congestive) heart failure; I24.8 Other forms of acute ischemic heart disease; I13.0 Hypertensive heart and chronic kidney disease with heart failure and stage 1 through stage 4 chronic kidney disease, or unspecified chronic kidney disease; G20 Parkinson's disease; N18.30 Chronic kidney disease, stage 3 unspecified; E03.9 Hypothyroidism, unspecified; Z79.890 Hormone replacement therapy; K31.84 Gastroparesis

== ENCOUNTER 2022-02-03 15:58 | Inpatient (IN) ==
[2022-02-03 16:38] LABS: Basophils # (auto) 0.04 K/uL (0-0.2); Basophils % (auto) 0.6 %; Eosinophils # (auto) 0.15 K/uL (0-0.50); Eosinophils % (auto) 2.4 %; Hematocrit (blood only) 36.9 % (34.1-44.9); Hemoglobin 11.7 g/dl (12.0-16.0); Immature Granulocytes # (auto) 0.01 K/uL (0.00-0.02); Immature Granulocytes % (auto) 0.2 %; Lymphocytes # (auto) 1.18 K/uL (1.2-3.4); Lymphocytes % (auto) 18.7 %; Mean Corpuscular Hemoglobin 25.6 pg (25.0-34.0); Mean Corpuscular Hgb Conc 31.7 g/dL (32.0-36.0); Mean Corpuscular Volume 80.7 fL (80.0-100.0); Mean Platelet Volume 10.5 fL (9.4-12.3); Monocytes # (auto) 0.67 K/uL (0.24-0.82); Monocytes % (auto) 10.6 %; Neutrophils # (auto) 4.26 K/uL (1.4-6.5); Neutrophils % (auto) 67.5 %; Platelet Count 216 K/uL (130-400); RDW Standard Deviation 49.1 fL (36.4-46.3); Red Blood Count 4.57 M/uL (3.93-5.22); White Blood Count 6.31 K/ul (4.8-10.8)
--- NOTE | 2022-02-03 16:50 | XRay Report ---
SINGLE VIEW CHEST CLINICAL HISTORY: Dyspnea. FINDINGS: An AP, portable, upright chest radiograph is compared to study dated 12/09/2021 and correlat ed with chest CT dated 12/04/2021. The heart is enlarged. Atherosclerotic calcification of the thoraci c aorta. The pulmonary vasculature is noncongested. Chronic interstitial thickening is similar to pre vious. There is bibasilar scarring/atelectasis. The lungs and pleural spaces are otherwise clear. No pneumothorax is seen. The skeletal structures are osteopenic. The bony thorax is grossly intact. IMPRESSION: Cardiomegaly with no acute cardiopulmonary abnormality. ACT 112: Negative or not required by law. Electronically signed by: Porfirio Thomas M.D. 02/03/2022 4:48 PM
[2022-02-03 16:52] LABS: Albumin Globulin Ratio 1.7 (0.9-2); Albumin Level 4.3 gm/dl (3.4-5.0); BUN Creatinine Ratio 24.3 (10-20); Bilirubin,Total 0.9 mg/dl (0.2-1.0); Calcium 9.3 mg/dl (8.5-10.1); Creatinine Clr Calc Pharmacy 27.6 ml/min; Est GFR (African American) 53.2 ml/min; Est GFR (Non-African American) 45.9 ml/min; Globulin 2.6 gm/dl (2.5-4.0); Potassium 4.4 mmol/L (3.5-5.1); Total Protein 6.9 gm/dl (6.0-8.3)
[2022-02-03 16:54] LABS: Troponin I High Sensitivity 42.6 pg/ml (0-14)
--- NOTE | 2022-02-03 16:54 | Emergency Department Note ---
Impression & Plan Breathlessness, Acute on chronic systolic HF (heart failure), Fall, Contusion of knee, Rib fractures ED Provider Note Provider: Michael Segovia MD DATE OF SERVICE: 02/03/2022 CHIEF COMPLAINT: Shortness of breath HISTORY OF PRESENT ILLNESS: Patient is a 81-year-old female history of CHF, hypothyroidism, Parkinson's disease, hypertension, subdural hematoma, CKD, and CAD presenting here today via ambulance from her home. Evidently lives with her . States that she became more short of breath while at rest today. This is improved some. Evidently did use home inhaler prior to arrival without improvement. States she may be a little more swollen in her legs. Patient denies abdominal pain or nausea or vomiting. Reports she has a little bit of swelling and thinks may be a hernia on her abdomen but denies severe pain with this. States she did fall although the story changes to whether was yesterday or a week ago yesterday. There is some bruising to the left knee and slight to the right knee. Does not know if she struck her head or not during this. Denies any chest pain or significant cough. She is unsure if she is been taking her Lasix or not. Patient is not the best historian in regards to specific details. REVIEW OF SYSTEMS: A total of 10 review of systems was obtained and negative except as stated above in the HPI. PAST MEDICAL HISTORY: As noted above MEDICATIONS: Reviewed home medication list. Patient states she takes once in the packages she is given. SOCIAL HISTORY: Denies smoking currently. Lives at home with PHYSICAL EXAM: GENERAL: alert and oriented in no acute distress on stretcher although not always the best historian. Head: normocephalic and atraumatic EYES: No injection, discharge or icterus. PERRL NECK: Trachea midline. Supple. ENT: Mucous membranes pink and moist. Pharynx without erythema or exudate. LUNGS: Airway patent. No retractions. Breath sounds clear but diminished in the bases and mildly tachypneic. HEART: Regular rate and rhythm. No chest wall tenderness ABDOMEN: Soft and non-tender, without guarding or rebound. SKIN: Acyanotic, warm, dry, without rashes EXTREMITIES: Patient with some 1+ edema of the lower extremities with some left greater than right anterior patellar bruising appears to be somewhat old in nature without focal bony tenderness noted on exam. NEUROLOGICAL: No focal deficits. No aphasia. No facial droop or slurred speech. Some resting tremor vertically in the legs appreciated. EK bpm sinus rhythm with PAC. No PVC. No acute ST segment elevation with some nonspecific lateral T wave changes. Left axis. QTC 468. CONTINUOUS CARDIAC MONITORING: was ordered and showed a heart rate of 70s-80s bpm in NSR with PAC Patient's laboratory studies and imaging reviewed. Differential includes Reactive airway disease, pneumonia, pneumothorax, COPD, CHF, infections, cardiac ischemia, pulmonary embolism, musculoskeletal, gastrointestinal, as well as other pathologies. IMPRESSION/MEDICAL DECISION MAKING: Patient is a complaint of shortness of breath with some improvement upon arrival here. Seems minimally labored. Some trace edema of the legs. History of CHF. Chest x-ray obtained and her report reviewed. BNP and basic labs were sent. COVID and flu test sent. Bruising to the right and left knee but no significant bony tenderness and doubt fracture. Blood work here today with stable anemia. No leukocytosis. No significant electrolyte abnormality. Stable renal function. Mildly elevated troponin but seems likely to be her baseline in comparison to previous. Decreased mobility and reported symptoms as well as a recent fall did complete a CT of the head as well as a CT of the chest to exclude PE. Not the best CTA but no evidence of large PE. Some pulmonary hypertension noted with effusion with two subacute rib fractures. Patient BNP significantly elevated believe likely more of a fluid overload situation. Some transient episodes of desaturations to the high 80s that rapidly improved without significant intervention. Discussed with the patient. Reports that she was at the doctor's on Friday and just started to retake Lasix this morning. 1 dose taken. Denies significant chest pain at this time but states occasionally she is getting some pain on her chest wall. Discussed with her the rib fracture finding. Seems likely given the evaluation here that her fall was not yesterday but last Friday. Given her age comorbidities and br eathlessness will initiate diuresis here and recommend observation overnight. She agreed with this given how short of breath she was earlier and the fact diuresis will take some time. Urinalysis seems more contamination than actual UTI. DIAGNOSIS: Shortness of breath, CHF, fall, knee contusions, subacute rib fractures DISPOSITION: Hospitalist will evaluate Patient was agreeable with this plan. Past Med/Surg History Medical History Anxiety CAD (coronary artery disease) Status post August 2007 PCI of both the RCA and LCX with FABIOLA Status post April 2008 PCI of the mid RCA with 2 FABIOLA Status post May 2008 PCI of the proximal LAD Status post March 2013 PCI of the RCA with a FABIOLA 7 stents total. Chronic back pain Chronic kidney disease stage 3 - monitors Dysphagia Esophageal spasm Gastroparesis GERD (gastroesophageal reflux disease) HFrEF (heart failure with reduced ejection fraction) Hyperlipidemia Hypertension Hypothyroidism Hypothyroidism Parkinson disease Parkinsons disease Prediabetes Per records Shortness of breath Surgical History History of ankle surgery LEFT History of appendectomy History of cardiac cath 08/2007, 04/2008, 2008, 2012 History of cholecystectomy Per records History of colonoscopy History of heart artery stent x7 total History of herniorrhaphy Per records History of hysterectomy History of thumb surgery Per records- right thumb Hx of angioplasty FOLLOWS [place] S/P left knee arthroscopy S/P right knee arthroscopy x2 Family History Mother Diabetes Brother Myocardial infarction Other No family history of adverse response to anesthesia Social History Smoking Status: Never smoker Second Hand Exposure: No; Hx Alcohol Use: No Hx Substance Use: No Preferred Language: Syriac Communication Ability: Effective Ore Feeder Required: No Beliefs That Will Affect Care: None marital status: Current Living Situation: Spouse How many Children do You have: 4 Feels Safe at Home: Yes Assistive Devices: Denture - Upper, Denture - Lower, Glasses, Oxygen - Continuous and Walker Allergies Allergies Allergy/AdvReac Type Severity Reaction Status Date / Time celecoxib AdvReac Intermediate GI SYMPTOMS Verified 02/03/22 17:12 aspirin AdvReac Mild Gastrointestinal Verified 02/03/22 17:12 Upset with 325mg dose. hydrocodone AdvReac Unknown STOMACH Verified 02/03/22 17:12 IRRITATION Home Meds Home Medications Medication Instructions Recorded Confirmed atorvastatin 40 mg tablet 40 mg PO HS 06/25/19 02/03/22 melatonin 5 mg tablet 5 mg PO HS 01/07/20 02/03/22 cetirizine 10 mg tablet (Zyrtec) 10 mg PO QAM PRN Allergy Symptoms 08/16/20 02/03/22 sertraline 100 mg tablet 100 mg PO QAM 08/16/20 02/03/22 aspirin 81 mg tablet,delayed 81 mg PO QAM 09/26/20 02/03/22 release cholecalciferol (vitamin D3) 25 25 mcg PO QAM 09/26/20 02/03/22 mcg (1,000 unit) capsule (Vitamin D3) vit A 300 mcg-C 200 mg-E 27 1 tab PO QAM 09/26/20 02/03/22 mg-lutein 2 mg and minerals tablet (Ocuvite with Lutein) carbidopa 25 mg-levodopa 100 mg 1.5 tab PO QID 12/31/20 02/03/22 tablet (Sinemet) sennosides 8.6 mg-docusate sodium 2 tab PO QAM 12/31/20 02/03/22 50 mg tablet (Stool Softener-Laxative) carbidopa ER 50 mg-levodopa 200 mg 1 tab PO HS 06/08/21 02/03/22 tablet,extended release cyanocobalamin (vitamin B-12) 1,000 mcg PO QPM 06/08/21 02/03/22 1,000 mcg tablet (Vitamin B-12) acetaminophen 325 mg tablet 975 mg PO Q4 PRN Fever Or Pain 12/04/21 02/03/22 famotidine 40 mg tablet 40 mg PO DAILY 12/04/21 02/03/22 ondansetron HCl 4 mg tablet 4 mg PO Q6 PRN Nausea 12/04/21 02/03/22 pantoprazole 40 mg tablet,delayed 40 mg PO DAILY 12/04/21 02/03/22 release polyethylene glycol 3350 17 gram 17 g PO DAILY PRN Constipation 12/04/21 02/03/22 oral powder packet (Miralax) albuterol sulfate 90 mcg/actuation 2 puff inhalation Q6H PRN 02/03/22 02/03/22 aerosol inhaler Shortness Of Breath Or Wheezing furosemide 20 mg tablet 20 mg PO QAM 02/03/22 02/03/22 Previous Rx's Medication Instructions Recorded carbidopa 25 mg-levodopa 100 mg 1 tab PO DAILY PRN Tremors 30 days 08/20/21 disintegrating tablet #30 tabs metoprolol succinate 25 mg 12.5 mg PO QAM 30 days #15 tabs 08/20/21 tablet,extended release 24 hr levothyroxine 125 mcg tablet 125 mcg PO DAILYBB #30 tabs 12/07/21 (Synthroid) midodrine 2.5 mg tablet 2.5 mg PO BID #60 tabs 12/13/21 Results & Data (ED) Vital Signs Vital Signs - 24 hr 02/03/22 16:12 02/03/22 16:12 02/03/22 16:12 Temperature 36.6 C Temperature Source Oral Pulse Rate 80 Respiratory Rate 22 Respiratory Effort / Characteristics Short of Breath Respiratory Depth Normal Respiratory Pattern Regular Blood Pressure 147/86 H Blood Pressure Mean 106 Pulse Oximetry 98 98 Oxygen Delivery Method Room Air Room Air Nasal Cannula Oxymask Aerosol Mask Ambu-Bag BiPAP CPAP Free Flow/Blow- by High Flow Nasal Cannula Oxyhood Mechanical Vent Nasal CPAP Nebulizer Non-rebreather T-Piece Trach Collar Face Tent Other Oxygen Flow Rate 0 0 Sepsis Recent Fever Within 48 Hours No Sepsis New/Unexplained Change in Mental Status No Sepsis Action Taken by Nursing No Action Required 02/03/22 16:27 Temperature Temperature Source Pulse Rate Respiratory Rate 20 Respiratory Effort / Characteristics Respiratory Depth Respiratory Pattern Blood Pressure Blood Pressure Mean Pulse Oximetry 97 Oxygen Delivery Method Room Air Oxygen Flow Rate Sepsis Recent Fever Within 48 Hours Sepsis New/Unexplained Change in Mental Status Sepsis Action Taken by Nursing Laboratory Data Result diagrams: 02/03/22 16:12 02/03/22 16:12 Lab Results 02/03/22 02/03/22 02/03/22 Range/Units 16:12 16:12 16:12 WBC 6.31 (4.8-10.8) K/ul RBC 4.57 (3.93-5.22) M/uL Hgb 11.7 L (12.0-16.0) g/dl Hct 36.9 (34.1-44.9) % MCV 80.7 (80.0-100.0) fL MCH 25.6 (25.0-34.0) pg MCHC 31.7 L (32.0-36.0) g/dL RDW Std Deviation 49.1 H (36.4-46.3) fL RDW Coeff of Ananya 17.0 H (11.5-14.5) % Plt Count 216 (130-400) K/uL MPV 10.5 (9.4-12.3) fL Immature Gran % (Auto) 0.2 % Neut % (Auto) 67.5 % Lymph % (Auto) 18.7 % Mcintosh % (Auto) 10.6 % Eos % (Auto) 2.4 % Baso % (Auto) 0.6 % Neut # (Auto) 4.26 (1.4-6.5) K/uL Lymph # (Auto) 1.18 L (1.2-3.4) K/uL Mcintosh # (Auto) 0.67 (0.24-0.82) K/uL Eos # (Auto) 0.15 (0-0.50) K/uL Baso # (Auto) 0.04 (0-0.2) K/uL Immature Gran # (Auto) 0.01 (0.00-0.02) K/uL PT Cancelled INR Cancelled APTT Cancelled PTT Ratio Cancelled Sodium (136-145) mmol/L Potassium (3.5-5.1) mmol/L Chloride (98-107) mmol/L Carbon Dioxide (21-32) mmol/L Anion Gap (3-11) BUN (6-23) mg/dl Creatinine (0.6-1.2) mg/dl Est Cr Clr Drug Dosing ml/min Est GFR ( Amer) ml/min Est GFR (Non-Af Amer) ml/min BUN/Creatinine Ratio (10-20) Glucose (70-99(Fasting)) mg/dl Calcium (8.5-10.1) mg/dl Magnesium (1.7-2.4) mg/dl Total Bilirubin (0.2-1.0) mg/dl AST (13-39) U/L ALT (7-52) U/L Alkaline Phosphatase (34-104) U/L Troponin I High Sens (0-14) pg/ml B-Natriuretic Peptide 1469 H (0-100) pg/ml Total Protein (6.0-8.3) gm/dl Albumin (3.4-5.0) gm/dl Globulin (2.5-4.0) gm/dl Albumin/Globulin Ratio (0.9-2) Urine Color Urine Appearance (Clear) Urine pH (4.5-7.5) Ur Specific [place] (1.000-1.030) Urine Protein (Negative) Urine Glucose (UA) (Negative) Urine Ketones (Negative) Urine Blood (Negative) Urine Nitrite (Negative) Urine Bilirubin (Negative) Urine Urobilinogen (Negative) Ur Leukocyte Esterase (Negative) Urine WBC (Auto) (0-5) /hpf Urine RBC (Auto) (0-4) /hpf U Hyaline Cast (Auto) (0-5) /lpf U Epithel Cells (Auto) (0-5) /lpf Urine Bacteria (Auto) (Negative) SARS-CoV-2 (PCR) (Negative) Influenza Type A (PCR) (Neg) Influenza Type B (PCR) (Neg) RSV (RT-PCR) (Neg) 02/03/22 02/03/22 02/03/22 Range/Units 16:12 16:12 17:29 WBC (4.8-10.8) K/ul RBC (3.93-5.22) M/uL Hgb (12.0-16.0) g/dl Hct (34.1-44.9) % MCV (80.0-100.0) fL MCH (25.0-34.0) pg MCHC (32.0-36.0) g/dL RDW Std Deviation (36.4-46.3) fL RDW Coeff of Ananya (11.5-14.5) % Plt Count (130-400) K/uL MPV (9.4-12.3) fL Immature Gran % (Auto) % Neut % (Auto) % Lymph % (Auto) % Mcintosh % (Auto) % Eos % (Auto) % Baso % (Auto) % Neut # (Auto) (1.4-6.5) K/uL Lymph # (Auto) (1.2-3.4) K/uL Mcintosh # (Auto) (0.24-0.82) K/uL Eos # (Auto) (0-0.50) K/uL Baso # (Auto) (0-0.2) K/uL Immature Gran # (Auto) (0.00-0.02) K/uL PT INR APTT PTT Ratio Sodium 139 (136-145) mmol/L Potassium 4.4 (3.5-5.1) mmol/L Chloride 105 (98-107) mmol/L Carbon Dioxide 26 (21-32) mmol/L Anion Gap 8 (3-11) BUN 27 H (6-23) mg/dl Creatinine 1.11 (0.6-1.2) mg/dl Est Cr Clr Drug Dosing 27.6 ml/min Est GFR ( Amer) 53.2 ml/min Est GFR (Non-Af Amer) 45.9 ml/min BUN/Creatinine Ratio 24.3 H (10-20) Glucose 106 H (70-99(Fasting)) mg/dl Calcium 9.3 (8.5-10.1) mg/dl Magnesium 2.0 (1.7-2.4) mg/dl Total Bilirubin 0.9 (0.2-1.0) mg/dl AST 17 (13-39) U/L ALT 3 L (7-52) U/L Alkaline Phosphatase 64 (34-104) U/L Troponin I High Sens 42.6 H (0-14) pg/ml B-Natriuretic Peptide (0-100) pg/ml Total Protein 6.9 (6.0-8.3) gm/dl Albumin 4.3 (3.4-5.0) gm/dl Globulin 2.6 (2.5-4.0) gm/dl Albumin/Globulin Ratio 1.7 (0.9-2) Urine Color Yellow Urine Appearance Clear (Clear) Urine pH 6.0 (4.5-7.5) Ur Specific [place] 1.014 (1.000-1.030) Urine Protein Negative (Negative) Urine Glucose (UA) Negative (Negative) Urine Ketones Negative (Negative) Urine Blood Negative (Negative) Urine Nitrite Negative (Negative) Urine Bilirubin Negative (Negative) Urine Urobilinogen Negative (Negative) Ur Leukocyte Esterase 3+ H (Negative) Urine WBC (Auto) 10-30 H (0-5) /hpf Urine RBC (Auto) 5-10 H (0-4) /hpf U Hyaline Cast (Auto) 0 (0-5) /lpf U Epithel Cells (Auto) >30 H (0-5) /lpf Urine Bacteria (Auto) 1+ H (Negative) SARS-CoV-2 (PCR) NEGATIVE (Negative) Influenza Type A (PCR) Negative (Neg) Influenza Type B (PCR) Negative (Neg) RSV (RT-PCR) Negative (Neg) Administered Medications Discontinued Medications Furosemide (Furosemide 40 Mg/4 Ml Vial) 40 mg IV ONE ONE Stop: 02/03/22 18:36 Last Admin: 02/03/22 18:55 Dose: 40 mg Documented By: KADY Ioversol (Optiray 300 500ml) 107 ml IV ONCE ONE Stop: 02/03/22 17:20 Last Admin: 02/03/22 17:20 Dose: 107 ml Documented By: EDK Imaging Data Radiologist's Impression: Chest X-Ray 02/03/22 16:22 SINGLE VIEW CHEST CLINICAL HISTORY: Dyspnea. FINDINGS: An AP, portable, upright chest radiograph is compared to study dated 12/09/2021 and correlated with chest CT dated 12/04/2021. The heart is enlarged. Atherosclerotic calcification of the thoracic aorta. The pulmonary vasculature is noncongested. Chronic interstitial thickening is similar to previous. There is bibasilar scarring/atelectasis. The lungs and pleural spaces are otherwise clear. No pneumothorax is seen. The skeletal structures are osteopenic. The bony thorax is grossly intact. IMPRESSION: Cardiomegaly with no acute cardiopulmonary abnormality. ACT 112: Negative or not required by law. Electronically signed by: Porfirio Thomas M.D. 02/03/2022 4:48 PM Chest CTA 02/03/22 16:55 CT ANGIOGRAM OF THE CHEST CLINICAL HISTORY: Fall. Dyspnea. COMPARISON STUDY: Chest x-ray dated 02/03/2022. Chest CT dated 12/04/2021. TECHNIQUE: Following the IV administration of 107 cc of Optiray 300, CT angiogram of the chest was performed from the upper abdomen to the thoracic inlet utilizing the pulmonary embolus protocol. Images are reviewed in the axial, sagittal, and coronal planes. 3-D MIPS images are created and assessed. IV contrast was administered without complication. A dose lowering technique was utilized adhering to the principles of ALARA. The examination is compromised by motion artifact. CT DOSE: 1603.12 mGy.cm FINDINGS: Thyroid: Atrophic and heterogeneous. Thoracic aorta: There is atherosclerotic calcification of the thoracic aorta, which is normal in caliber and demonstrates bovine variant arch anatomy. The thoracic aorta is not opacified. Pulmonary vasculature: The pulmonary trunk is dilated, measuring 3.7 cm in diameter. This suggests pulmonary artery hypertension. There are no filling defects identified in main or lobar pulmonary branches to suggest pulmonary embolus. The segmental and subsegmental branches cannot be evaluated due to lack of contrast opacification. Heart: The heart is markedly enlarged noting a small to moderate pericardial eff usion. The coronary arteries are densely calcified. Lungs and pleural spaces: Evaluation of the lung parenchyma is significantly degraded by motion artifact. There are small pleural effusions with dependent atelectasis. No airspace consolidation is seen typical for pneumonia. The trachea and central airways are clear. Mediastinum: There is no mediastinal lymphadenopathy. Kaitlin: Clear. Axillae: There is no axillary lymphadenopathy. Upper abdomen: There is a small to moderate hiatal hernia. A small amount of perihepatic and perisplenic ascites is partially visualized in the upper abdomen. Reflux of contrast into the IVC and hepatic veins suggests cardiac dysfunction. Skeletal structures: The skeletal structures are osteopenic. No lytic or blastic bony lesions are seen. Arthritic change is noted in the shoulders and thoracic spine. There is thoracic hyperkyphosis. There are subacute appearing right posterior 9th and 10th rib fractures. IMPRESSION: 1. Motion compromised examination. 2. There is no evidence of central pulmonary embolus in the main or lobar pulmonary arteries. The segmental and subsegmental branches cannot be assessed due to lack of contrast opacification. 3. Marked cardiomegaly with evidence of pulmonary artery hypertension. 4. Small pleural effusions with bibasilar atelectasis. 5. There are subacute appearing right posterior 9th and 10th rib fractures. Clinical correlation will be required. 6. A small amount of ascites is noted in the upper abdomen. 7. Additional findings as above. ACT 112: Negative or not required by law. Electronically signed by: Porfirio Thomas M.D. 02/03/2022 6:[address] 02/03/22 16:55 CT SCAN OF THE BRAIN WITHOUT IV CONTRAST CLINICAL HISTORY: Fall. COMPARISON STUDY: CT of the brain dated 09/26/2020. TECHNIQUE: Unenhanced axial CT scan of the brain is performed from the vertex to the skull base. A dose lowering technique was utilized adhering to the principles of ALARA. The examination is compromised by motion artifact. The patient was scanned twice in an effort to improve image quality. FINDINGS: Brain parenchyma: There is age-related involutional change noting moderate confluent subcortical and periventricular microangiopathic disease. There is no hemorrhage, mass effect, or evidence of acute territorial ischemia by CT criteria. Ruggiero-white matter differentiation is preserved. No extra-axial fluid collection is seen. Ventricles, sulci, cisterns: Prominent secondary to involutional change. Intracranial vasculature: There is atherosclerotic calcification of the cavernous carotid and vertebral artery. Calvarium: The skeletal structures are osteopenic. No depressed calvarial fracture is identified. Sinuses and mastoids: The visualized paranasal sinuses are clear. There is thickening and sclerosis of the right maxillary sinus which is similar to previous. The mastoid air cells are well pneumatized. Orbits: The bony orbits are grossly intact. There are bilateral ocular lens implants. IMPRESSION: There is no hemorrhage, mass effect, or evidence of acute territorial ischemia by CT criteria. ACT 112: Negative or not required by law. Electronically signed by: Porfirio Thomas M.D. 02/03/2022 5:26 PM Discharge Plan Visit Data Chief Complaint: Respiratory Problems ED Provider: Michael Segovia Discharge Problem: Breathlessness, Acute on chronic systolic HF (heart failure), Fall, Contusion of knee, Rib fractures Patient Disposition: Being Evaluated by Hospitalist Forms Stand Alone Forms: [facility] Prescriptions Prescriptions: No Action atorvastatin 40 mg Tablet 40 mg PO HS melatonin 5 mg Tablet 5 mg PO HS cetirizine [Zyrtec] 10 mg Tablet 10 mg PO QAM PRN (Reason: Allergy Symptoms) sertraline 100 mg tablet 100 mg PO QAM sennosides-docusate sodium [Stool Softener-Laxative] 8.6-50 mg tablet 2 tab PO QAM carbidopa-levodopa [Sinemet] 25-100 mg tablet 1.5 tab PO QID Rx Instructions: take in morning, lunch, evening and night may take an extra tablet if needed. carbidopa-levodopa 50-200 mg tablet extended release 1 tab PO HS cyanocobalamin (vitamin B-12) [Vitamin B-12] 1,000 mcg Tablet 1,000 mcg PO QPM albuterol sulfate 90 mcg/actuation HFA aerosol inhaler 2 puff INHALATION Q6H PRN (Reason: Shortness Of Breath Or Wheezing) furosemide 20 mg tablet 20 mg PO QAM aspirin 81 mg Tablet,Delayed Release (Dr/Ec) 81 mg PO QAM cholecalciferol (vitamin D3) [Vitamin D3] 25 mcg (1,000 unit) Capsule 25 mcg PO QAM Ocuvite with Lutein 1,000 unit-200 mg-60 unit-2 mg Tablet 1 tab PO QAM metoprolol succinate 25 mg Tablet Extended Release 24 Hr 12.5 mg PO QAM 30 Days Qty: 15 1RF carbidopa-levodopa 25-100 mg Tablet,Disintegrating 1 tab PO DAILY PRN (Reason: Tremors) 30 Days Qty: 30 1RF acetaminophen 325 mg tablet 975 mg PO Q4 PRN (Reason: Fever Or Pain) polyethylene glycol 3350 [Miralax] 17 gram Powder In Packet 17 g PO DAILY PRN (Reason: Constipation) ondansetron HCl 4 mg tablet 4 mg PO Q6 PRN (Reason: Nausea) famotidine 40 mg tablet 40 mg PO DAILY pantoprazole 40 mg tablet,delayed release (DR/EC) 40 mg PO DAILY levothyroxine [Synthroid] 125 mcg Tablet 125 mcg PO DAILYBB Qty: 30 0RF midodrine 2.5 mg Tablet 2.5 mg PO BID Qty: 60 0RF Referrals Referrals: Raisa Martin MD [Primary Care Provider] - : Rib fractures Qualifiers: Encounter type: subsequent encounter Fracture type: closed Laterality: right Fracture healing: with routine healing Qualified Code(s): S22.41XD - Multiple fractures of ribs, right side, subsequent encounter for fracture with routine healing
[2022-02-03 17:19] LABS: Influenza A virus by PCR Negative (Neg); Influenza B virus by PCR Negative (Neg); RSV by PCR Negative (Neg); SARS CoV2 RNA(COVID-19) InHosp NEGATIVE (Negative)
[2022-02-03] MEDS ORDERED: OPTIRAY 300 500mL IV ONE (17:19)
--- NOTE | 2022-02-03 17:28 | CT Scan Report ---
CT SCAN OF THE BRAIN WITHOUT IV CONTRAST CLINICAL HISTORY: Fall. COMPARISON STUDY: CT of the brain dated 09/26/2020. TECHNIQUE: Unenhanced axial CT scan of the brain is performed from the vertex to the skull base. A do se lowering technique was utilized adhering to the principles of ALARA. The examination is compromise d by motion artifact. The patient was scanned twice in an effort to improve image quality. FINDINGS: Brain parenchyma: There is age-related involutional change noting moderate confluent subcortical and periventricular microangiopathic disease. There is no hemorrhage, mass effect, or evidence of acute t erritorial ischemia by CT criteria. Ruggiero-white matter differentiation is preserved. No extra-axial fl uid collection is seen. Ventricles, sulci, cisterns: Prominent secondary to involutional change. Intracranial vasculature: There is atherosclerotic calcification of the cavernous carotid and vertebr al artery. Calvarium: The skeletal structures are osteopenic. No depressed calvarial fracture is identified. Sinuses and mastoids: The visualized paranasal sinuses are clear. There is thickening and sclerosis o f the right maxillary sinus which is similar to previous. The mastoid air cells are well pneumatized. Orbits: The bony orbits are grossly intact. There are bilateral ocular lens implants. IMPRESSION: There is no hemorrhage, mass effect, or evidence of acute territorial ischemia by CT césar cohen. ACT 112: Negative or not required by law. Electronically signed by: Porfirio Thomas M.D. 02/03/2022 5:26 PM
[2022-02-03 17:48] LABS: Appearance Urine Clear (Clear); Bacteria Urine Automated 1+ (Negative); Bilirubin Urine Negative (Negative); Blood Urine Negative (Negative); Cast Urine Automated 0 /lpf (0-5); Color Urine Yellow; Epithelial Cell Urine Auto >30 /lpf (0-5); Glucose Urine UA Negative (Negative); Ketones Urine Negative (Negative); Leukocyte Esterase Urine 3+ (Negative); Nitrite Urine Negative (Negative); Protein Urine Negative (Negative); Specific Gravity Urine 1.014 (1.000-1.030); Urobilinogen Urine Negative (Negative)
--- NOTE | 2022-02-03 18:17 | CT Scan Report ---
CT ANGIOGRAM OF THE CHEST CLINICAL HISTORY: Fall. Dyspnea. COMPARISON STUDY: Chest x-ray dated 02/03/2022. Chest CT dated 12/04/2021. TECHNIQUE: Following the IV administration of 107 cc of Optiray 300, CT angiogram of the chest was pe rformed from the upper abdomen to the thoracic inlet utilizing the pulmonary embolus protocol. Images are reviewed in the axial, sagittal, and coronal planes. 3-D MIPS images are created and assessed. I V contrast was administered without complication. A dose lowering technique was utilized adhering to the principles of ALARA. The examination is compromised by motion artifact. CT DOSE: 1603.12 mGy.cm FINDINGS: Thyroid: Atrophic and heterogeneous. Thoracic aorta: There is atherosclerotic calcification of the thoracic aorta, which is normal in farzaneh loretta and demonstrates bovine variant arch anatomy. The thoracic aorta is not opacified. Pulmonary vasculature: The pulmonary trunk is dilated, measuring 3.7 cm in diameter. This suggests pu lmonary artery hypertension. There are no filling defects identified in main or lobar pulmonary branc hes to suggest pulmonary embolus. The segmental and subsegmental branches cannot be evaluated due to lack of contrast opacification. Heart: The heart is markedly enlarged noting a small to moderate pericardial effusion. The coronary a rteries are densely calcified. Lungs and pleural spaces: Evaluation of the lung parenchyma is significantly degraded by motion artif act. There are small pleural effusions with dependent atelectasis. No airspace consolidation is seen typical for pneumonia. The trachea and central airways are clear. Mediastinum: There is no mediastinal lymphadenopathy. Kaitlin: Clear. Axillae: There is no axillary lymphadenopathy. Upper abdomen: There is a small to moderate hiatal hernia. A small amount of perihepatic and perisple bandra ascites is partially visualized in the upper abdomen. Reflux of contrast into the IVC and hepatic veins suggests cardiac dysfunction. Skeletal structures: The skeletal structures are osteopenic. No lytic or blastic bony lesions are see n. Arthritic change is noted in the shoulders and thoracic spine. There is thoracic hyperkyphosis. Th ere are subacute appearing right posterior 9th and 10th rib fractures. IMPRESSION: 1. Motion compromised examination. 2. There is no evidence of central pulmonary embolus in the main or lobar pulmonary arteries. The seg mental and subsegmental branches cannot be assessed due to lack of contrast opacification. 3. Marked cardiomegaly with evidence of pulmonary artery hypertension. 4. Small pleural effusions with bibasilar atelectasis. 5. There are subacute appearing right posterior 9th and 10th rib fractures. Clinical correlation will be required. 6. A small amount of ascites is noted in the upper abdomen. 7. Additional findings as above. ACT 112: Negative or not required by law. Electronically signed by: Porfirio Thomas M.D. 02/03/2022 6:15 PM
[2022-02-03] MEDS ORDERED: FUROSEMIDE 40 MG/4 ML VIAL IV ONE (18:35)
[2022-02-03 19:23] LABS: INR 1.2 (0.9-1.1); Partial Thromboplastin Time 28.2 Seconds (21.0-31.0); Prothrombin Time 13.1 Seconds (9.0-12.0)
--- NOTE | 2022-02-03 20:20 | History & Physical Report ---
Date of Service February 03, 2022 Assessment & Plan (1) Acute hypoxemic respiratory failure: Plan: History systolic dysfunction Secondary to decompensated heart failure underlying pulmonary hypertension Rule out MARIA EUGENIA pericardial effusion on CT Troponin elevation secondary to illness hx CAD status post stent hypertension, BP stable hyperlipidemia, on statin Rx Parkinson's disease, stable on current regimen hypothyroidism, TS slightly elevated from recent outpatient draw history traumatic subdural hematoma/SAH Chronic anemia, hemoglobin at baseline Prediabetes, hemoglobin A1c of 6.10 August 2021 Asymptomatic pyuria PCU Supplemental O2 Baseline ABG Diuretic Rx Strict I/Os, daily weights, CHF education, fluid restriction Follow troponin TTE re pericardial effusion Consider Pulmonology eval for respiratory failure secondary to pulm hypertension Outpatient sleep study Hold off on antibiotics for now for asymptomatic pyuria. DVT prophylaxis. Lovenox subcu DNR Patient requests for daughter to be updated of plan of care. Ms. Kacie Serrano, contact #[phone]. Text document was generated using [employer] voice recognition software. It may contain grammatical or spelling errors. Kindly contact undersigned for clarification of any documentation item in question. History of Present Illness Chief Complaint: Worsening shortness of breath Primary Care Provider: Raisa Martin MD History obtained from patient and records. Medical history significant for chronic systolic heart failure (EF 40-45%, TTE 2021), CAD status post stent, PFO, hypertension, hyperlipidemia, COPD as per records, Parkinson's disease, hypothyroidism, prediabetes, GERD, gastroparesis, history subdural hematoma, chronic anemia (baseline hemoglobin is 11), orthostatic hypotension on Midodrine Monthly confinements since November 2021 for decompensated heart failure. Recent confinement for CHF last month attributed to Florinef. Florinef discontinued on discharge. Patient seen on follow-up at PCP's office 5 days ago. Patient complaining of shortness of breath with leg swelling the last couple of weeks. Dry cough symptoms, unable to expectorate. No chest pain complaints. No weight gain as per patient. Patient compliant with home medications. Bilateral pitting leg edema on provider exam. Outpatient CXR showed pulmonary edema and trace pleural effusions. BNP noted to be abnormal at 13,000. Patient snores during sleep as per family. Episodes of breathlessness at home which awakens patient from sleep. Outpatient provider consulted [facility] rn oncology clinical via as [facility] last month regarding symptoms. Consideration for MARIA EUGENIA with episodes of nocturnal awakenings with shortness of breath as per note. Patient seen on Cardiology follow-up visit 2 days ago. Lasix frequency increased to twice a day. Nocturnal pulse ox check requested. Patient brought to ER for evaluation because of worsening shortness of breath symptoms. Patient denies abdominal distention/pain, dysuria symptoms. No fever, no chills. IV Lasix administered at the ER. O2 sats 80s on room air at one point during ER stay. 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 hydrocodone AdvReac Unknown STOMACH Verified 02/03/22 17:12 IRRITATION Home Medications Medication Instructions Recorded Confirmed Type atorvastatin 40 mg tablet 40 mg PO HS 06/25/19 02/03/22 History melatonin 5 mg tablet 5 mg PO HS 01/07/20 02/03/22 History cetirizine 10 mg tablet (Zyrtec) 10 mg PO QAM PRN Allergy Symptoms 08/16/20 02/03/22 History sertraline 100 mg tablet 100 mg PO QAM 08/16/20 02/03/22 History aspirin 81 mg tablet,delayed 81 mg PO QAM 09/26/20 02/03/22 History release cholecalciferol (vitamin D3) 25 25 mcg PO QAM 09/26/20 02/03/22 History mcg (1,000 unit) capsule (Vitamin D3) vit A 300 mcg-C 200 mg-E 27 1 tab PO QAM 09/26/20 02/03/22 History mg-lutein 2 mg and minerals tablet (Ocuvite with Lutein) carbidopa 25 mg-levodopa 100 mg 1.5 tab PO QID 12/31/20 02/03/22 History tablet (Sinemet) sennosides 8.6 mg-docusate sodium 2 tab PO QAM 12/31/20 02/03/22 History 50 mg tablet (Stool Softener-Laxative) carbidopa ER 50 mg-levodopa 200 mg 1 tab PO HS 06/08/21 02/03/22 History tablet,extended release cyanocobalamin (vitamin B-12) 1,000 mcg PO QPM 06/08/21 02/03/22 History 1,000 mcg tablet (Vitamin B-12) carbidopa 25 mg-levodopa 100 mg 1 tab PO DAILY PRN Tremors 30 days 08/20/21 02/03/22 Rx disintegrating tablet #30 tabs metoprolol succinate 25 mg 12.5 mg PO QAM 30 days #15 tabs 08/20/21 02/03/22 Rx tablet,extended release 24 hr acetaminophen 325 mg tablet 975 mg PO Q4 PRN Fever Or Pain 12/04/21 02/03/22 History famotidine 40 mg tablet 40 mg PO DAILY 12/04/21 02/03/22 History ondansetron HCl 4 mg tablet 4 mg PO Q6 PRN Nausea 12/04/21 02/03/22 History pantoprazole 40 mg tablet,delayed 40 mg PO DAILY 12/04/21 02/03/22 History release polyethylene glycol 3350 17 gram 17 g PO DAILY PRN Constipation 12/04/21 02/03/22 History oral powder packet (Miralax) levothyroxine 125 mcg tablet 125 mcg PO DAILYBB #30 tabs 12/07/21 02/03/22 Rx (Synthroid) midodrine 2.5 mg tablet 2.5 mg PO BID #60 tabs 12/13/21 02/03/22 Rx albuterol sulfate 90 mcg/actuation 2 puff inhalation Q6H PRN 02/03/22 02/03/22 History aerosol inhaler Shortness Of Breath Or Wheezing furosemide 20 mg tablet 20 mg PO QAM 02/03/22 02/03/22 History Past Med/Surg History Medical History Anxiety CAD (coronary artery disease) Status post August 2007 PCI of both the RCA and LCX with FABIOLA Status post April 2008 PCI of the mid RCA with 2 FABIOLA Status post May 2008 PCI of the proximal LAD Status post March 2013 PCI of the RCA with a FABIOLA 7 stents total. Chronic back pain Chronic kidney disease stage 3 - monitors Dysphagia Esophageal spasm Gastroparesis GERD (gastroesophageal reflux disease) HFrEF (heart failure with reduced ejection fraction) Hyperlipidemia Hypertension Hypothyroidism Hypothyroidism Parkinson disease Parkinsons disease Prediabetes Per records Shortness of breath Surgical History History of ankle surgery LEFT History of appendectomy History of cardiac cath 08/2007, 04/2008, 2008, 2012 History of cholecystectomy Per records History of colonoscopy History of heart artery stent x7 total History of herniorrhaphy Per records History of hysterectomy History of thumb surgery Per records- right thumb Hx of angioplasty FOLLOWS [place] S/P left knee arthroscopy S/P right knee arthroscopy x2 Family History Mother Diabetes Brother Myocardial infarction Other No family history of adverse response to anesthesia Social History Smoking Status: Never smoker Second Hand Exposure: No; Hx Alcohol Use: No Hx Substance Use: No Preferred Language: Bhutanese Communication Ability: Effective Mammalogist Required: No Beliefs That Will Affect Care: None marital status: Current Living Situation: Spouse How many Children do You have: 4 Other Information That Helps Us Care for You: No Feels Safe at Home: Yes Safety Concerns: Feels Safe At This Time Assistive Devices: Denture - Upper, Denture - Lower, Walker and Wheelchair Review of Systems Review of Systems: As per HPI, all other systems reviewed and negative Physical Exam Physical Exam: GENERAL: Pleasant, slightly uncomfortable, tremulous, no respiratory distress SKIN: Pallor,, warm HEENT: Bespectacled, pale palpebral conjunctivae, no ptosis, moist buccal mucosa NECK : Supple, no tenderness CHEST : Decreased breath sounds, no tenderness HEART : RRR, systolic murmur ABDOMEN: Some distention, nontender EXTREMITIES : Minimal LE swelling, no LE tenderness, no other conspicuous d eformities noted NEUROLOGIC : Coherent, no facial asymmetry, tremulous, gait and stance not assessed Results & Data Results & Data ([facility]) Vital Signs (Past 12 Hours) Vital Signs Temp Pulse Pulse Resp BP BP Pulse Ox 02/03/22 20:05 72 20 126/77 95 02/03/22 19:00 78 20 130/70 83 L 02/03/22 17:48 77 20 135/77 96 02/03/22 16:27 20 97 02/03/22 16:12 98 02/03/22 16:12 36.6 C 80 22 147/86 H 98 02/03/22 16:12 O2 Del Method O2 Flow Rate 02/03/22 20:05 Room Air 02/03/22 19:00 Room Air 02/03/22 17:48 Room Air 02/03/22 16:27 Room Air 02/03/22 16:12 Room Air, Nasal Cannula, Oxymask, Aerosol Mask, Ambu-Bag, BiPAP, CPAP, Free Flow/Blow-by, High Flow Nasal Cannula, Oxyhood, Mechanical Vent, Nasal CPAP, Nebulizer, Non-rebreather, T-Piece, Trach Collar, Face Tent, Other 0 02/03/22 16:12 02/03/22 16:12 Room Air 0 Laboratory Results Laboratory Results WBC 6.31 K/ul (4.8-10.8) 02/03/22 16:12 RBC 4.57 M/uL (3.93-5.22) 02/03/22 16:12 Hgb 11.7 g/dl (12.0-16.0) L 02/03/22 16:12 Hct 36.9 % (34.1-44.9) 02/03/22 16:12 MCV 80.7 fL (80.0-100.0) 02/03/22 16:12 MCH 25.6 pg (25.0-34.0) 02/03/22 16:12 MCHC 31.7 g/dL (32.0-36.0) L 02/03/22 16:12 RDW Std Deviation 49.1 fL (36.4-46.3) H 02/03/22 16:12 RDW Coeff of Ananya 17.0 % (11.5-14.5) H 02/03/22 16:12 Plt Count 216 K/uL (130-400) 02/03/22 16:12 MPV 10.5 fL (9.4-12.3) 02/03/22 16:12 Immature Gran % (Auto) 0.2 % 02/03/22 16:12 Neut % (Auto) 67.5 % 02/03/22 16:12 Lymph % (Auto) 18.7 % 02/03/22 16:12 Reynolds % (Auto) 10.6 % 02/03/22 16:12 Eos % (Auto) 2.4 % 02/03/22 16:12 Baso % (Auto) 0.6 % 02/03/22 16:12 Neut # (Auto) 4.26 K/uL (1.4-6.5) 02/03/22 16:12 Lymph # (Auto) 1.18 K/uL (1.2-3.4) L 02/03/22 16:12 Reynolds # (Auto) 0.67 K/uL (0.24-0.82) 02/03/22 16:12 Eos # (Auto) 0.15 K/uL (0-0.50) 02/03/22 16:12 Baso # (Auto) 0.04 K/uL (0-0.2) 02/03/22 16:12 Immature Gran # (Auto) 0.01 K/uL (0.00-0.02) 02/03/22 16:12 PT 13.1 Seconds (9.0-12.0) H 02/03/22 18:41 INR 1.2 (0.9-1.1) H 02/03/22 18:41 APTT 28.2 Seconds (21.0-31.0) 02/03/22 18:41 PTT Ratio 1.0 02/03/22 18:41 Sodium 139 mmol/L (136-145) 02/03/22 16:12 Potassium 4.4 mmol/L (3.5-5.1) 02/03/22 16:12 Chloride 105 mmol/L (98-107) 02/03/22 16:12 Carbon Dioxide 26 mmol/L (21-32) 02/03/22 16:12 Anion Gap 8 (3-11) 02/03/22 16:12 BUN 27 mg/dl (6-23) H 02/03/22 16:12 Creatinine 1.11 mg/dl (0.6-1.2) 02/03/22 16:12 Est Cr Clr Drug Dosing 27.6 ml/min 02/03/22 16:12 Est GFR ( Amer) 53.2 ml/min 02/03/22 16:12 Est GFR (Non-Af Amer) 45.9 ml/min 02/03/22 16:12 BUN/Creatinine Ratio 24.3 (10-20) H 02/03/22 16:12 Glucose 106 mg/dl (70-99(Fasting)) H 02/03/22 16:12 Calcium 9.3 mg/dl (8.5-10.1) 02/03/22 16:12 Magnesium 2.0 mg/dl (1.7-2.4) 02/03/22 16:12 Total Bilirubin 0.9 mg/dl (0.2-1.0) 02/03/22 16:12 AST 17 U/L (13-39) 02/03/22 16:12 ALT 3 U/L (7-52) L 02/03/22 16:12 Alkaline Phosphatase 64 U/L (34-104) 02/03/22 16:12 Troponin I High Sens 42.6 pg/ml (0-14) H 02/03/22 16:12 B-Natriuretic Peptide 1469 pg/ml (0-100) H 02/03/22 16:12 Total Protein 6.9 gm/dl (6.0-8.3) 02/03/22 16:12 Albumin 4.3 gm/dl (3.4-5.0) 02/03/22 16:12 Globulin 2.6 gm/dl (2.5-4.0) 02/03/22 16:12 Albumin/Globulin Ratio 1.7 (0.9-2) 02/03/22 16:12 Urine Color Yellow 02/03/22 17: Urine Appearance Clear (Clear) 02/03/22 17: Urine pH 6.0 (4.5-7.5) 02/03/22 17: Ur Specific [place] 1.014 (1.000-1.030) 02/03/22 17: Urine Protein Negative (Negative) 02/03/22 17: Urine Glucose (UA) Negative (Negative) 02/03/22: Urine Ketones Negative (Negative) 02/03/22 17: Urine Blood Negative (Negative) 02/03/22 17: Urine Nitrite Negative (Negative) 02/03/22 17: Urine Bilirubin Negative (Negative) 02/03/22 17: Urine Urobilinogen Negative (Negative) 02/03/22 17:29 Ur Leukocyte Esterase 3+ (Negative) H 02/03/22 17:29 Urine WBC (Auto) 10-30 /hpf (0-5) H 02/03/22 17:29 Urine RBC (Auto) 5-10 /hpf (0-4) H 02/03/22 17:29 U Hyaline Cast (Auto) 0 /lpf (0-5) 02/03/22 17:29 U Epithel Cells (Auto) >30 /lpf (0-5) H 02/03/22 17:29 Urine Bacteria (Auto) 1+ (Negative) H 02/03/22 17:29 SARS-CoV-2 (PCR) NEGATIVE (Negative) 02/03/22 16:12 Influenza Type A (PCR) Negative (Neg) 02/03/22 16:12 Influenza Type B (PCR) Negative (Neg) 02/03/22 16:12 RSV (RT-PCR) Negative (Neg) 02/03/22 16:12 Impressions Chest X-Ray 02/03/22 16:22 SINGLE VIEW CHEST CLINICAL HISTORY: Dyspnea. FINDINGS: An AP, portable, upright chest radiograph is compared to study dated 12/09/2021 and correlated with chest CT dated 12/04/2021. The heart is enlarged. Atherosclerotic calcification of the thoracic aorta. The pulmonary vasculature is noncongested. Chronic interstitial thickening is similar to previous. There is bibasilar scarring/atelectasis. The lungs and pleural spaces are otherwise clear. No pneumothorax is seen. The skeletal structures are osteopenic. The bony thorax is grossly intact. IMPRESSION: Cardiomegaly with no acute cardiopulmonary abnormality. ACT 112: Negative or not required by law. Electronically signed by: Porfirio Thomas M.D. 02/03/2022 4:48 PM Chest CTA 02/03/22 16:55 CT ANGIOGRAM OF THE CHEST CLINICAL HISTORY: Fall. Dyspnea. COMPARISON STUDY: Chest x-ray dated 02/03/2022. Chest CT dated 12/04/2021. TECHNIQUE: Following the IV administration of 107 cc of Optiray 300, CT angiogram of the chest was performed from the upper abdomen to the thoracic inlet utilizing the pulmonary embolus protocol. Images are reviewed in the axial, sagittal, and coronal planes. 3-D MIPS images are created and assessed. IV contrast was administered without complication. A dose lowering technique was utilized adhering to the principles of ALARA. The examination is compromised by motion artifact. CT DOSE: 1603.12 mGy.cm FINDINGS: Thyroid: Atrophic and heterogeneous. Thoracic aorta: There is atherosclerotic calcification of the thoracic aorta, which is normal in caliber and demonstrates bovine variant arch anatomy. The thoracic aorta is not opacified. Pulmonary vasculature: The pulmonary trunk is dilated, measuring 3.7 cm in diameter. This suggests pulmonary artery hypertension. There are no filling defects identified in main or lobar pulmonary branches to suggest pulmonary embolus. The segmental and subsegmental branches cannot be evaluated due to lack of contrast opacification. Heart: The heart is markedly enlarged noting a small to moderate pericardial effusion. The coronary arteries are densely calcified. Lungs and pleural spaces: Evaluation of the lung parenchyma is significantly degraded by motion artifact. There are small pleural effusions with dependent atelectasis. No airspace consolidation is seen typical for pneumonia. The trachea and central airways are clear. Mediastinum: There is no mediastinal lymphadenopathy. Kaitlin: Clear. Axillae: There is no axillary lymphadenopathy. Upper abdomen: There is a small to moderate hiatal hernia. A small amount of perihepatic and perisplenic ascites is partially visualized in the upper abdomen. Reflux of contrast into the IVC and hepatic veins suggests cardiac dysfunction. Skeletal structures: The skeletal structures are osteopenic. No lytic or blastic bony lesions are seen. Arthritic change is noted in the shoulders and thoracic spine. There is thoracic hyperkyphosis. There are subacute appearing right posterior 9th and 10th rib fractures. IMPRESSION: 1. Motion compromised examination. 2. There is no evidence of central pulmonary embolus in the main or lobar pulmonary arteries. The segmental and subsegmental branches cannot be assessed due to lack of contrast opacification. 3. Marked cardiomegaly with evidence of pulmonary artery hypertension. 4. Small pleural effusions with bibasilar atelectasis. 5. There are subacute appearing right posterior 9th and 10th rib fractures. Clinical correlation will be required. 6. A small amount of ascites is noted in the upper abdomen. 7. Additional findings as above. ACT 112: Negative or not required by law. Electronically signed by: Porfirio Thomas M.D. 02/03/2022 6:[address] 02/03/22 16:55 CT SCAN OF THE BRAIN WITHOUT IV CONTRAST CLINICAL HISTORY: Fall. COMPARISON STUDY: CT of the brain dated 09/26/2020. TECHNIQUE: Unenhanced axial CT scan of the brain is performed from the vertex to the skull base. A dose lowering technique was utilized adhering to the principles of ALARA. The examination is compromised by motion artifact. The patient was scanned twice in an effort to improve image quality. FINDINGS: Brain parenchyma: There is age-related involutional change noting moderate confluent subcortical and periventricular microangiopathic disease. There is no hemorrhage, mass effect, or evidence of acute territorial ischemia by CT criteria. Ruggiero-white matter differentiation is preserved. No extra-axial fluid collection is seen. Ventricles, sulci, cisterns: Prominent secondary to involutional change. Intracranial vasculature: There is atherosclerotic calcification of the cavernous carotid and vertebral artery. Calvarium: The skeletal structures are osteopenic. No depressed calvarial fracture is identified. Sinuses and mastoids: The visualized paranasal sinuses are clear. There is thickening and sclerosis of the right maxillary sinus which is similar to previous. The mastoid air cells are well pneumatized. Orbits: The bony orbits are grossly intact. There are bilateral ocular lens implants. IMPRESSION: There is no hemorrhage, mass effect, or evidence of acute territorial ischemia by CT criteria. ACT 112: Negative or not required by law. Electronically signed by: Porfirio Thomas M.D. 02/03/2022 5:26 PM Diagnostic Findings EKG as per my interpretation : Rate 75, NSR, LAD, LAFB, LVH, T wave abnormalities lateral leads
[2022-02-03] MEDS ORDERED: CARBIDOPA/LEVODOPA 25/100MG TAB PO STA (20:23)
[2022-02-03] MEDS ORDERED: guaiFENesin 600 MG TABCR PO STA (20:31)
[2022-02-03] MEDS ORDERED: NITROGLYCERIN SL 0.4 MG/TAB TAB SL PRN (23:41)
[2022-02-03] MEDS ORDERED: POLYETHYLENE (MIRALAX) 17 GM PACK PO PRN (23:41)
[2022-02-03] MEDS ORDERED: CETIRIZINE HCL 10 MG TABLET PO PRN (23:41)
[2022-02-03] MEDS ORDERED: ACETAMINOPHEN 325 MG TAB PO PRN (23:41)
[2022-02-04] MEDS ORDERED: MELATONIN 3 MG TAB PO PRN (00:06)
[2022-02-04] MEDS: ATORVASTATIN 40 MG TAB PO SCH ×2 (00:42→20:05)
[2022-02-04] MEDS: FUROSEMIDE 20 MG TAB PO SCH ×2 (00:42→09:01)
[2022-02-04] MEDS: CARBIDOPA/LEVODOPA 50/200MG EXT REL TAB PO SCH ×2 (00:43→20:05)
[2022-02-04] MEDS: CYANOCOBALAMIN (B-12) 500 MCG TABLET PO SCH ×2 (00:44→20:08)
[2022-02-04] MEDS: MIDODRINE HCL 2.5 MG TAB PO SCH ×3 (00:45→20:09)
[2022-02-04] MEDS: LEVOTHYROXINE SODIUM 125 MCG TABLET PO SCH (06:04)
[2022-02-04 07:53] LABS: Basophils # (auto) 0.05 K/uL (0-0.2); Basophils % (auto) 0.7 %; Eosinophils # (auto) 0.16 K/uL (0-0.50); Eosinophils % (auto) 2.1 %; Hemoglobin 11.5 g/dl (12.0-16.0); Immature Granulocytes # (auto) 0.02 K/uL (0.00-0.02); Immature Granulocytes % (auto) 0.3 %; Lymphocytes # (auto) 1.66 K/uL (1.2-3.4); Lymphocytes % (auto) 22.2 %; Mean Corpuscular Hemoglobin 25.7 pg (25.0-34.0); Mean Corpuscular Hgb Conc 32.9 g/dL (32.0-36.0); Mean Corpuscular Volume 78.3 fL (80.0-100.0); Mean Platelet Volume 10.9 fL (9.4-12.3); Monocytes # (auto) 0.74 K/uL (0.24-0.82); Monocytes % (auto) 9.9 %; Neutrophils # (auto) 4.85 K/uL (1.4-6.5); Neutrophils % (auto) 64.8 %; Platelet Count 212 K/uL (130-400); RDW Coefficient of Variation 16.7 % (11.5-14.5); RDW Standard Deviation 46.6 fL (36.4-46.3); Red Blood Count 4.47 M/uL (3.93-5.22); White Blood Count 7.48 K/ul (4.8-10.8)
[2022-02-04 07:55] LABS: BUN Creatinine Ratio 24.3 (10-20); Calcium 9.1 mg/dl (8.5-10.1); Creatinine Clr Calc Pharmacy 32.6 ml/min; Est GFR (African American) 58.2 ml/min; Est GFR (Non-African American) 50.2 ml/min; Potassium 3.7 mmol/L (3.5-5.1)
--- NOTE | 2022-02-04 08:04 | Cardiology Consultation ---
Date of Consultation February 04, 2022 Assessment & Plan (1) HFrEF (heart failure with reduced ejection fraction): (2) Acute on chronic systolic HF (heart failure): (3) RVF (right ventricular failure): (4) Hypoxia: (5) Elevated troponin: (6) Parkinsons disease: Plan Medically complex 81 year old female with known CAD and HFrEF. LVEF further reduced at 25-30% now with RV involvement. Initially presented hypoxic- on 2L supplemental O2 via NC saturating in the mid to upper 90s. No exertional chest pain, sob improved. Lung sounds remain course to auscultation- LLL significantly diminished. Vital signs stable- no evidence of bradycardia or hypotension Elevated troponin secondary to do to acute CHF, vs PE, vs other. Does not appear to be related to ACS. EKG with diffuse T wave abnormalities. Generally unchanged when compared to previous ekgs. 1. Stat CXR to reassess lung antoine due to LLL abnormality. May need to consider pulmonary consult pending results. 2. Despite lung sounds, clinically, patient is appearing euvolemic on exam- further recommendations pending CXR results. Hesitant to increase diuretics at this time due to RV dysfunction on echo- patient likely preload dependent. 3. Given history of CAD- Continue ASA, Metoprolol, and Lipitor as ordered 4. Midodrine for hx of hypotension possibly due to Parkinson's. Kaitlininef dc'd prior admission due to CHF 5. Lovenox of DVT prophylaxis 6. Monitor renal function and electrolytes- replace Potassium for a goal of 4.0 and Mag goal of 2.0. Case discussed with Dr. Ferro- will follow. Supervising Physician Co-Signing Physician Notes Patient seen and examined, chart, medications reviewed. She is an 81-year-old complex female with longstanding ischemic heart disease and recent worsening systolic congestive heart failure. LV systolic function continues to decline on repeat echocardiogram this admission. Management has been limited by patient's orthostatic hypotension. Overall goals per patient's distinct wishes are ongoing conservative medical therapies only. Patient seen recently in the outpatient setting with signs and symptoms of volume overload by x-ray and exam. Clinical exam today suggests improvement she did receive IV furosemide in ER Will give additional dose of IV furosemide on 20 mg this afternoon. Will need nocturnal oximetry assessed suspect patient would benefit from oxygen supplementation at minimum Overall acute decline in LV systolic function over the last year now ejection fraction severely impaired in a global manner. Overall prognosis limited. We will assess SPEP, serum immunofixation assess for infiltrative disease. Thyroid function and iron studies normal within the last year patient on chronic thyroid replace History of Present Illness Reason for Consultation: Acute on chronic CHF with acute hypoxic respiratory failure Requesting Physician: [facility] Attending Physician: David Rico MD History of Present Illness Medically complex 81 year old female who initially presented to the ED due to worsening shortness of breath. Has had multiple admissions over the last few months for CHF. Last confinement in November and December. Was seen by Haley Garcia PA-C in our outpatient clinic on 02/01. Patient is a poor historian and was unsure if she was missing any doses of her diuretic. Lasix was increased to 20 mg twice daily at this time. In the emergency department patient was hypoxic and given 40 mg of IV Lasix. Lab work: Hemoglobin, mildly anemic 11.5. Renal function stable. Potassium 3.7. High-sensitivity troponins mildly elevated and flat (42.6>>44.5>>47.6), BNP 14,000 Chest x-ray: Pulmonary vascular is not congested, chronic interstitial thickening similar to previous. Bibasilar atelectasis. Lungs and pleural space are otherwise clear. No pneumo. CT of the chest: No evidence of central pulmonary emboli. The segmental and subsegmental branches cannot be assessed due to lack of contrast opacification, cardiomegaly with evidence of pulmonary hypertension, small pleural effusions and bibasilar atelectasis, small amount of ascites noted in the upper abdomen Head CT: There is no hemorrhage, mass effect, or evidence of acute territorial ischemia by CT criteria. Echo 02/04: LVEF 15 to 20% with severe global hypokinesis and grade 2 diastolic dysfunction, RV size is normal with reduced systolic function, moderate aortic sclerosis without stenosis, moderate MR and TR, severe left atrial enlargement, PASP of 38 mmHg Tele: SR 1st degree AVB, 70s I&O: -263 mL Weight: 58.6>>56.8>>56.6 (02/04) Upon entrance into the room patient sleeping in bed, but woke easily. HOB aprox 30 degrees. Patient states that on Friday she had such difficulty breathing it frightened her. Denies worsening symptoms with exertion. Noted orthopnea prior to arrival. Mild ankle swelling. No chest pain, but did mention tightness across her shoulder blades occasionally. No palpitations, dizziness, or syncope. Today the patient states that she is feeling improved- No shortness of breath this am. Remains on 2L NC O2, spo2 95%. Continues to deny chest pain, palpitations, n/v. No dizziness or syncope. Cardiac Problem List: 1. ASCVD Status postApril 2007 PCI of both the RCA and LCX with FABIOLA Status postDecember 2007 PCI of the mid RCA with 2 FABIOLA Status postJanuary 2008 PCI of the proximal LAD Status postNovember 2012 PCI of the RCA with a FABIOLA Cardiac catheterization on 03/25/2013 which demonstrated the following: No evidence of LM disease. 70% lesion in the D1. Mild disease in a medium sized proximal LAD. Nondominant LCX with an existing stent with a 60% lesion. Dominant RCA with a 90% 10 mm long culprit lesion in the mid portion of the vessel s/p PCI with a Xience Expedition Everolimus Eluting coronary stent. 2. Moderately severe LV systolic dysfunction with diastolic dysfunction 3. Mitral regurgitation 4. PFO with small [id number] right interatrial shunt 5. Hypertension 6. Dyslipidemia Allergies Allergy/AdvReac Type Severity Reaction Status Date / Time celecoxib AdvReac Intermediate GI SYMPTOMS Verified 02/03/22 17:12 aspirin AdvReac Mild Gastrointestinal Verified 02/03/22 17:12 Upset with 325mg dose. hydrocodone AdvReac Unknown STOMACH Verified 02/03/22 17:12 IRRITATION Home Medications Medication Instructions Recorded Confirmed Type atorvastatin 40 mg tablet 40 mg PO HS 06/25/19 02/03/22 History melatonin 5 mg tablet 5 mg PO HS 01/07/20 02/03/22 History cetirizine 10 mg tablet (Zyrtec) 10 mg PO QAM PRN Allergy Symptoms 08/16/20 02/03/22 History sertraline 100 mg tablet 100 mg PO QAM 08/16/20 02/03/22 History aspirin 81 mg tablet,delayed 81 mg PO QAM 09/26/20 02/03/22 History release cholecalciferol (vitamin D3) 25 25 mcg PO QAM 09/26/20 02/03/22 History mcg (1,000 unit) capsule (Vitamin D3) vit A 300 mcg-C 200 mg-E 27 1 tab PO QAM 09/26/20 02/03/22 History mg-lutein 2 mg and minerals tablet (Ocuvite with Lutein) carbidopa 25 mg-levodopa 100 mg 1.5 tab PO QID 12/31/20 02/03/22 History tablet (Sinemet) sennosides 8.6 mg-docusate sodium 2 tab PO QAM 12/31/20 02/03/22 History 50 mg tablet (Stool Softener-Laxative) carbidopa ER 50 mg-levodopa 200 mg 1 tab PO HS 06/08/21 02/03/22 History tablet,extended release cyanocobalamin (vitamin B-12) 1,000 mcg PO QPM 06/08/21 02/03/22 History 1,000 mcg tablet (Vitamin B-12) carbidopa 25 mg-levodopa 100 mg 1 tab PO DAILY PRN Tremors 30 days 08/20/21 02/03/22 Rx disintegrating tablet #30 tabs metoprolol succinate 25 mg 12.5 mg PO QAM 30 days #15 tabs 08/20/21 02/03/22 Rx tablet,extended release 24 hr acetaminophen 325 mg tablet 975 mg PO Q4 PRN Fever Or Pain 12/04/21 02/03/22 History famotidine 40 mg tablet 40 mg PO DAILY 12/04/21 02/03/22 History ondansetron HCl 4 mg tablet 4 mg PO Q6 PRN Nausea 12/04/21 02/03/22 History pantoprazole 40 mg tablet,delayed 40 mg PO DAILY 12/04/21 02/03/22 History release polyethylene glycol 3350 17 gram 17 g PO DAILY PRN Constipation 12/04/21 02/03/22 History oral powder packet (Miralax) levothyroxine 125 mcg tablet 125 mcg PO DAILYBB #30 tabs 12/07/21 02/03/22 Rx (Synthroid) midodrine 2.5 mg tablet 2.5 mg PO BID #60 tabs 12/13/21 02/03/22 Rx albuterol sulfate 90 mcg/actuation 2 puff inhalation Q6H PRN 02/03/22 02/03/22 History aerosol inhaler Shortness Of Breath Or Wheezing furosemide 20 mg tablet 20 mg PO QAM 02/03/22 02/03/22 History Patient History Medical History Anxiety CAD (coronary artery disease) Status post August 2007 PCI of both the RCA and LCX with FABIOLA Status post April 2008 PCI of the mid RCA with 2 FABIOLA Status post May 2008 PCI of the proximal LAD Status post March 2013 PCI of the RCA with a FABIOLA 7 stents total. Chronic back pain Chronic kidney disease stage 3 - monitors Dysphagia Esophageal spasm Gastroparesis GERD (gastroesophageal reflux disease) HFrEF (heart failure with reduced ejection fraction) Hyperlipidemia Hypertension Hypothyroidism Hypothyroidism Parkinson disease Parkinsons disease Prediabetes Per records Shortness of breath Surgical History History of ankle surgery LEFT History of appendectomy History of cardiac cath 08/2007, 04/2008, 2008, 2012 History of cholecystectomy Per records History of colonoscopy History of heart artery stent x7 total History of herniorrhaphy Per records History of hysterectomy History of thumb surgery Per records- right thumb Hx of angioplasty FOLLOWS [place] S/P left knee arthroscopy S/P right knee arthroscopy x2 Family History Mother Diabetes Brother Myocardial infarction Other No family history of adverse response to anesthesia Social History Smoking Status: Never smoker Second Hand Exposure: No; Hx Alcohol Use: No Hx Substance Use: No Preferred Language: Kittitian Communication Ability: Effective 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 Beliefs That Will Affect Care: None marital status: Current Living Situation: Spouse How many Children do You have: 4 Other Information That Helps Us Care for You: No Feels Safe at Home: Yes Safety Concerns: Feels Safe At This Time Assistive Devices: Walker and Wheelchair Review of Systems Review of Systems: All systems reviewed & are unremarkable except as noted in HPI & below Physical Exam Physical Exam: Constitutional: WD/WN, vitals as above + thin; no acute distress Eyes: PERRL ENMT: external ear and nose normal, oropharynx normal Neck: normal visual inspection and trachea midline Respiratory: normal respiratory effort; no cough Auscultation: + diminished lung sounds (Significantly diminished breath sounds in LLL) and + crackles (throughout all lung antoine. ); no rhonchi and no wheezes Cardiovascular: Rate/Rhythm: regular rate and regular rhythm Heart Sounds: normal S1, normal S2 and + murmur (+1/6 systolic murmur) Vessels: normal peripheral pulses; no JVD Extremities: + varicosities; no edema Gastrointestinal (Abdomen): normal bowel sounds, soft, nontender, no hepatosplenomegaly Percussion/Palpation: abdomen soft; abdomen nontender Skin: no rashes, warm and dry Neurologic: PERRL, EOMI, accommodation nl, no face palsy, no dysarthria Motor/Sensory: + tremor Psychiatric: A+Ox3, euthymic affect Results & Data ([facility]) Vital Signs (Past 12 Hours) Vital Signs Temp Pulse Pulse Pulse Resp BP BP 02/04/22 07:46 36.4 C L 75 36 H 146/91 H 02/04/22 04:26 36.5 C 77 20 138/85 02/03/22 23:00 79 02/03/22 23:00 02/03/22 23:00 36.5 C 76 18 116/79 02/04/22 00:00 02/03/22 21:53 75 20 135/65 02/03/22 20:05 72 20 126/77 Pulse Ox Pulse Ox O2 Del Method O2 Del Method O2 Flow Rate O2 Flow Rate 02/04/22 07:46 95 Nasal Cannula 02/04/22 04:26 97 Nasal Cannula 2.0 02/03/22 23:00 02/03/22 23:00 Room Air 02/03/22 23:00 98 Room Air 02/04/22 00:00 99 Nasal Cannula 2 02/03/22 21:53 96 Room Air 02/03/22 20:05 95 Room Air Laboratory Results Cardiac Enzymes 02/03/22 02/03/22 02/03/22 Range/Units 16:12 16:12 21:03 AST 17 (13-39) U/L Troponin I High Sens 42.6 H 44.5 H (0-14) pg/ml B-Natriuretic Peptide 1469 H (0-100) pg/ml 02/04/22 Range/Units 00:34 AST (13-39) U/L Troponin I High Sens 47.6 H (0-14) pg/ml B-Natriuretic Peptide (0-100) pg/ml Coagulation 02/03/22 02/03/22 02/03/22 Range/Units 16:12 16:12 18:41 PT Cancelled 13.1 H APTT Cancelled 28.2 B-Natriuretic Peptide 1469 H (0-100) pg/ml CBC 02/03/22 02/04/22 Range/Units 16:12 06:38 WBC 6.31 7.48 (4.8-10.8) K/ul RBC 4.57 4.47 (3.93-5.22) M/uL Hgb 11.7 L 11.5 L (12.0-16.0) g/dl Hct 36.9 35.0 (34.1-44.9) % Plt Count 216 212 (130-400) K/uL Neut # (Auto) 4.26 4.85 (1.4-6.5) K/uL Lymph # (Auto) 1.18 L 1.66 (1.2-3.4) K/uL [place] # (Auto) 0.67 0.74 (0.24-0.82) K/uL Eos # (Auto) 0.15 0.16 (0-0.50) K/uL Baso # (Auto) 0.04 0.05 (0-0.2) K/uL Comprehensive Metabolic Panel 02/03/22 02/04/22 Range/Units 16:12 06:38 Sodium 139 139 (136-145) mmol/L Potassium 4.4 3.7 (3.5-5.1) mmol/L Chloride 105 104 (98-107) mmol/L Carbon Dioxide 26 26 (21-32) mmol/L BUN 27 H 25 H (6-23) mg/dl Creatinine 1.11 1.03 (0.6-1.2) mg/dl Glucose 106 H 94 (70-99(Fasting)) mg/dl Calcium 9.3 9.1 (8.5-10.1) mg/dl AST 17 (13-39) U/L ALT 3 L (7-52) U/L Alkaline Phosphatase 64 (34-104) U/L Total Protein 6.9 (6.0-8.3) gm/dl Albumin 4.3 (3.4-5.0) gm/dl Intake and Output 02/03/22 02/04/22 02/04/22 22:59 06:59 14:59 Intake Total Output Total 275 / 275 Balance -263 / -263 Intake: Oral Output: Urine Amount (Catheter) 275 / 275 External 275 / 275 Other: Weight 52.7 kg 56.6 kg Weight Measurement Method Built in [facility] Built in [facility] Diagnostic Findings Echo 02/04: LVEF 15 to 20% with severe global hypokinesis and grade 2 diastolic dysfunction, RV size is normal with reduced systolic function, moderate aortic sclerosis without stenosis, moderate MR and TR, severe left atrial enlargement, PASP of 38 mmHg Echo 08/15/2021: LVEF 40 to 45%, grade 1 diastolic dysfunction, moderate concentric LVH, mild hypokinesis of the inferior and inferior septal allen, left atrium severely dilated, moderate aortic sclerosis without stenosis. Mild MR.
[2022-02-04] MEDS: FAMOTIDINE 40 MG TABLET PO SCH (08:46)
[2022-02-04] MEDS: ASPIRIN 81 MG ECTAB PO SCH (08:47)
[2022-02-04] MEDS: METOPROLOL SUCC 25MG EXT REL TAB PO SCH (08:48)
[2022-02-04] MEDS: guaiFENesin 600 MG TABCR PO SCH ×2 (08:50→20:08)
[2022-02-04] MEDS: PANTOprazole 40 MG TAB PO SCH (08:50)
[2022-02-04] MEDS: SERTRALINE HCL 100 MG TABLET PO SCH (08:51)
[2022-02-04] MEDS: DOCUSATE SODIUM/SENNA 50/8.6MG TAB PO SCH (08:52)
[2022-02-04] MEDS: CARBIDOPA/LEVODOPA 25/100MG TAB PO SCH ×4 (08:53→20:06)
[2022-02-04] MEDS: ENOXAPARIN INJ 30 MG/0.3 ML SYR SQ SCH ×2 (08:55→09:15)
[2022-02-04] MEDS: CEROVITE ADV FORMULA TAB PO SCH (09:01)
--- NOTE | 2022-02-04 10:21 | XRay Report ---
XR chest 1V portable CLINICAL HISTORY: Shortness of breath, Rales, LLL inaudible. COMPARISON STUDY: Chest radiograph and chest CT February 03, 2022. FINDINGS: Skin fold projects over the left chest. There is no pneumothorax. Small bilateral pleural e ffusions are again noted. There is cardiomegaly with mild interstitial thickening. No consolidation i s identified to suggest pneumonia. IMPRESSION: Cardiomegaly with mild interstitial pulmonary edema and small bilateral pleural effusions. ACT 112: Negative or not required by law. Electronically signed by: Gabriel Irving M.D. 02/04/2022 10:19 AM
--- NOTE | 2022-02-04 14:43 | Hospitalist Progress Note ---
Date of Service February 04, 2022 Assessment & Plan (1) Acute hypoxemic respiratory failure: Plan: History systolic dysfunction Secondary to decompensated heart failure underlying pulmonary hypertension Rule out MARIA EUGENIA -- On Lasix 20 mg IV twice daily Echo: Severely reduced LV systolic function with severe global hypokinesis EF 15 to 20% Grade 2 diastolic dysfunction Moderate mitral regurg Moderate tricuspid regurg -- Cardiology service on board hx CAD status post stent -- Continue metoprolol, aspirin, Lipitor hypertension -- BP stable hyperlipidemia -- on statin Rx Parkinson's disease, stable on current regimen hypothyroidism, TS slightly elevated from recent outpatient draw history traumatic subdural hematoma/SAH Chronic anemia, hemoglobin at baseline Prediabetes, hemoglobin A1c of 6.10 August 2021 Asymptomatic pyuria Outpatient sleep study Hold off on antibiotics for now for asymptomatic pyuria. DVT prophylaxis. Lovenox subcu DNR Admission and Anticipated Discharge Date Admission Date: February 03, 2022 Subjective Follow-up for acute CHF exacerbation, diastolic' etc. Seen resting in bed, awake and alert, comfortable, not distressed In good spirits On 2 L of oxygen via nasal cannula States she feels improved today compared to yesterday No active shortness of breath, chest pain, palpitations, dizziness No other symptoms Review of Systems Review of Systems: all noted and negative except for above Physical Exam Physical Exam: General- oriented x 3, not in distress, speaks in sentences with no effort or accessory muscle use Head- atraumatic Eyes- PERRL, EOMI, anicteric ENT- oropharynx clear Neck- supple, no JVD, no adenopathy, no thyromegaly; carotids +2/2, no bruits appreciated Lungs-positive mild crackles at the bases, no wheezing Heart- normal rate, regular rhythm; no murmur, no gallop, no rub appreciated Abdomen- normal bowel sounds, nondistended, soft, nontender, no masses or hepatosplenomegaly Extremities-trace pretibial edema, no calf tenderness; peripheral pulses intact Neuro- alert, oriented x 3; CN 2-12 grossly intact; motor 5/5 bilaterally;sensation 100% on all extremities; no other gross focal neurologic deficits Skin- warm & dry Results & Data Results & Data ([facility]) Vital Signs (Past 12 Hours) Vital Signs Temp Pulse Pulse Resp BP Pulse Ox Pulse Ox 02/04/22 11:34 35.6 C L 67 22 112/70 100 02/04/22 10:43 97 02/04/22 07:46 36.4 C L 75 36 H 146/91 H 95 02/04/22 04:26 36.5 C 77 20 138/85 97 Pulse Ox Pulse Ox O2 Del Method O2 Flow Rate O2 Flow Rate O2 Flow Rate O2 Flow Rate 02/04/22 11:34 Nasal Cannula 2 02/04/22 10:43 97 95 0 0 0 02/04/22 07:46 Nasal Cannula 02/04/22 04:26 Nasal Cannula 2.0 all noted and reviewed including below
[2022-02-04] MEDS: FUROSEMIDE INJ 20 MG/2 ML VIAL IV SCH (16:45)
[2022-02-05] MEDS: LEVOTHYROXINE SODIUM 125 MCG TABLET PO SCH (06:18)
--- NOTE | 2022-02-05 06:40 | Electrocardiogram Report ---
Test Reason : Blood Pressure : / mmHG Vent. Rate : 074 BPM Atrial Rate : 074 BPM P-R Int : 194 ms QRS Dur : 092 ms QT Int : 422 ms P-R-T Axes : 064 -38 184 degrees QTc Int : 468 ms Sinus rhythm with Premature atrial complexes Left axis deviation Moderate voltage criteria for LVH, may be normal variant T wave abnormality, consider lateral ischemia Abnormal ECG When compared with ECG of 09-DEC-2021 18:35, Premature atrial complexes are now Present Confirmed by Aristides Frances ([id number]) on 02/04/2022 9:52:41 AM Referred By: REFERRED SELF Confirmed By:Aristides Frances
--- NOTE | 2022-02-05 07:40 | Cardiology Progress Note ---
Date of Service February 05, 2022 Assessment & Plan (1) HFrEF (heart failure with reduced ejection fraction): (2) Acute on chronic systolic HF (heart failure): (3) RVF (right ventricular failure): (4) Hypoxia: (5) Elevated troponin: (6) Parkinsons disease: Plan Medically complex 81 year old female with known CAD and HFrEF. LVEF further reduced at 25-30%, global hypokinesis noted. . GDMT Management has been limited by patient's orthostatic hypotension. Overall goals per patient's distinct wishes are ongoing conservative medical therapies only. Elevated troponin likely secondary to acute CHF. 1. SPEP and serum immunofixation to assess for infiltrative disease 2. Recommend nocturnal oximetry to assess or MARIA EUGENIA, patient may benefit from nocturnal o2. 3. Given history of CAD- Continue ASA, Metoprolol, and Lipitor as ordered 4. Midodrine for hx of hypotension possibly due to Parkinson's. Sarah dc'd prior admission due to CHF 5. Lovenox of DVT prophylaxis 6. Continue diuresis with IV lasix 20 mg BID 7. Monitor renal function and electrolytes- replace Potassium for a goal of 4.0 and Mag goal of 2.0. Case discussed with Dr. Ferro- will follow. Admission and Anticipated Discharge Date Admission Date: February 03, 2022 Supervising Physician Co-Signing Physician Notes Patient was seen and personally examined. Pulmonary status has improved with diuresis. Good oxygenation currently on room air would assess for nocturnal oximetry on room air, need for oxygen supplement Assessment as above. We will discontinue IV diuretics today. Begin oral diuretics at higher dosing, add low-dose spironolactone once again Evaluation and ordered today for possible infiltrative/amyloid disease the likely ischemic cardiomyopathy as a cause of ongoing cardiac decline Subjective Patient is a 81-year-old complex female with longstanding ischemic heart disease and recent worsening systolic congestive heart failure. LV systolic function continues to decline on repeat echocardiogram this admission. 02/04: LVEF 15-20% with global hypokinesis. Hypervolemic on exam- additional 20 mg IV Lasix given. Recommendations of nocturnal oximetry as well as SPEP, serum immunofixation to assess for infiltrative disease. 02/05: Patient seen and examined, chart, medications reviewed. Upon entrance into the room patient resting in bed- wakes easily. Denies any concerns. Notes improvement in her shortness of breath. No chest pain, palpitations, dizziness, or syncope. No orthopnea or PND. Per tele, continued to desaturate over night- currently maintained on 2L NC Tele: SR 60s I&O: -363mL Weight: 58.6kg >> 56.6 kg Review of Systems Review of Systems: All systems reviewed & are unremarkable except as noted in HPI & below Physical Exam Physical Exam: Constitutional: WD/WN, vitals as above + thin; no acute distress Eyes: PERRL ENMT: external ear and nose normal, oropharynx normal Neck: normal visual inspection and trachea midline Respiratory: normal respiratory effort; no cough Auscultation: + diminished lung sounds and + crackles (throughout all lung antoine. ); no rhonchi and no wheezes Cardiovascular: Rate/Rhythm: regular rate and regular rhythm Heart Sounds: normal S1, normal S2 and + murmur (+1/6 systolic murmur) Vessels: normal peripheral pulses; no JVD Extremities: + varicosities; no edema Gastrointestinal (Abdomen): normal bowel sounds, soft, nontender, no hepatosplenomegaly Percussion/Palpation: abdomen soft; abdomen nontender Skin: no rashes, warm and dry Neurologic: PERRL, EOMI, accommodation nl, no face palsy, no dysarthria Motor/Sensory: + tremor Psychiatric: A+Ox3, euthymic affect Results & Data ([facility]) Vital Signs (Past 12 Hours) Vital Signs Temp Pulse Pulse Resp BP Pulse Ox Pulse Ox 02/05/22 04:57 66 02/05/22 04:57 02/05/22 03:22 36.2 C L 60 16 117/72 100 02/05/22 00:00 98 02/04/22 22:59 36.3 C L 67 16 117/77 99 O2 Del Method O2 Del Method O2 Flow Rate O2 Flow Rate 02/05/22 04:57 02/05/22 04:57 Nasal Cannula 2 02/05/22 03:22 Nasal Cannula 2 02/05/22 00:00 Nasal Cannula 2 02/04/22 22:59 Nasal Cannula 2
[2022-02-05] MEDS: ASPIRIN 81 MG ECTAB PO SCH (08:31)
[2022-02-05] MEDS: CARBIDOPA/LEVODOPA 25/100MG TAB PO SCH ×4 (08:32→20:47)
[2022-02-05] MEDS: ENOXAPARIN INJ 30 MG/0.3 ML SYR SQ SCH ×2 (08:33→08:38)
[2022-02-05] MEDS: FUROSEMIDE INJ 20 MG/2 ML VIAL IV SCH (08:33)
[2022-02-05] MEDS: FAMOTIDINE 40 MG TABLET PO SCH (08:33)
[2022-02-05] MEDS: DOCUSATE SODIUM/SENNA 50/8.6MG TAB PO SCH (08:33)
[2022-02-05] MEDS: guaiFENesin 600 MG TABCR PO SCH ×2 (08:34→20:49)
[2022-02-05] MEDS: MIDODRINE HCL 2.5 MG TAB PO SCH ×2 (08:35→20:50)
[2022-02-05] MEDS: METOPROLOL SUCC 25MG EXT REL TAB PO SCH (08:35)
[2022-02-05] MEDS: CEROVITE ADV FORMULA TAB PO SCH (08:36)
[2022-02-05] MEDS: PANTOprazole 40 MG TAB PO SCH (08:36)
[2022-02-05] MEDS: SERTRALINE HCL 100 MG TABLET PO SCH (08:36)
[2022-02-05 11:01] LABS: BUN Creatinine Ratio 27.4 (10-20); Calcium 8.8 mg/dl (8.5-10.1); Creatinine Clr Calc Pharmacy 29.7 ml/min; Est GFR (African American) 52.1 ml/min; Est GFR (Non-African American) 44.9 ml/min; Potassium 3.5 mmol/L (3.5-5.1)
[2022-02-05] MEDS: SPIRONOLACTONE 12.5 MG TAB PO SCH (12:34)
--- NOTE | 2022-02-05 15:32 | Hospitalist Progress Note ---
Date of Service February 05, 2022 Assessment & Plan (1) Acute hypoxemic respiratory failure: Plan: History systolic dysfunction Secondary to decompensated heart failure underlying pulmonary hypertension Possible underlying obstructive sleep apnea -- On Lasix 20 mg IV twice daily Echo: Severely reduced LV systolic function with severe global hypokinesis EF 15 to 20% Grade 2 diastolic dysfunction Moderate mitral regurg Moderate tricuspid regurg -- Has received Lasix IV daily Diuresed well Transition to p.o. Lasix today increased from daily to twice a day Spironolactone added as well --For nocturnal pulse extremity -- Cardiology service on board Possible UTI --Check urine culture --Start ceftriaxone 1 g IV daily hx CAD status post stent -- Continue metoprolol, aspirin, Lipitor hypertension -- BP stable hyperlipidemia -- on statin Rx Parkinson's disease, stable on current regimen hypothyroidism, TS slightly elevated from recent outpatient draw history traumatic subdural hematoma/SAH Chronic anemia, hemoglobin at baseline Prediabetes, hemoglobin A1c of 6.10 August 2021 DVT prophylaxis. Lovenox subcu DNR Disposition PT recommending to transition to longterm facility Admission and Anticipated Discharge Date Admission Date: February 03, 2022 Subjective Follow-up for acute CHF exacerbation, etc. Seen resting in bed, comfortable, watching TV On 2 L of oxygen via nasal cannula Not in distress Good spirits States she feels improved today compared to yesterday Breathing continues to improve Denies cough, fevers or chills, sputum production No chest pain, palpitations, dizziness No other symptoms Review of Systems Review of Systems: all noted and negative except for above Physical Exam Physical Exam: General- oriented x 3, not in distress, speaks in sentences with no effort or accessory muscle use Eyes- anicteric Neck- no JVD Lungs- clear breath sounds bilaterally, no crackles or wheezing Heart- normal rate, regular rhythm; no murmurs Abdomen- normal bowel sounds, nondistended, soft, nontender Extremities- no pretibial edema, no calf tenderness Neuro- alert, oriented x 3; no gross focal neurologic deficits Positive resting tremors Skin- warm & dry Results & Data Results & Data ([facility]) Vital Signs (Past 12 Hours) Vital Signs Temp Pulse Pulse Resp BP Pulse Ox O2 Del Method 02/05/22 08:00 02/05/22 07:54 36.5 C 62 20 117/69 96 Room Air 09/27/22 04:57 66 02/05/22 04:57 Nasal Cannula O2 Del Method O2 Flow Rate 02/05/22 08:00 Room Air 02/05/22 07:54 02/05/22 04:57 02/05/22 04:57 2 all noted and reviewed including below
[2022-02-05] MEDS: FUROSEMIDE 20 MG TAB PO SCH (16:47)
[2022-02-05] MEDS: cefTRIAXone SODIUM 1,000 MG in DEXTROSE 5% 50 ML IV SCH (16:47)
[2022-02-05] MEDS: ATORVASTATIN 40 MG TAB PO SCH (20:45)
[2022-02-05] MEDS: CARBIDOPA/LEVODOPA 50/200MG EXT REL TAB PO SCH (20:46)
[2022-02-05] MEDS: CYANOCOBALAMIN (B-12) 500 MCG TABLET PO SCH (20:48)
[2022-02-05 21:10] LABS: Appearance Urine Clear (Clear); Bacteria Urine Automated Negative (Negative); Bilirubin Urine Negative (Negative); Blood Urine Negative (Negative); Cast Urine Automated 0 /lpf (0-5); Color Urine Yellow; Epithelial Cell Urine Auto 20-30 /lpf (0-5); Glucose Urine UA Negative (Negative); Ketones Urine Negative (Negative); Leukocyte Esterase Urine 2+ (Negative); Nitrite Urine Negative (Negative); Protein Urine Negative (Negative); RBC Urine Automated 0-4 /hpf (0-4); Specific Gravity Urine 1.015 (1.000-1.030); Urobilinogen Urine Negative (Negative)
[2022-02-06] MEDS: LEVOTHYROXINE SODIUM 125 MCG TABLET PO SCH (06:09)
[2022-02-06] MEDS ORDERED: PROMETHAZINE HCL 12.5 MG in SODIUM CHLORIDE 0.9% 50 ML IV PRN (08:21)
[2022-02-06] MEDS: ASPIRIN 81 MG ECTAB PO SCH (08:41)
[2022-02-06] MEDS: CARBIDOPA/LEVODOPA 25/100MG TAB PO SCH ×4 (08:41→20:06)
[2022-02-06] MEDS: DOCUSATE SODIUM/SENNA 50/8.6MG TAB PO SCH (08:42)
[2022-02-06] MEDS: FAMOTIDINE 40 MG TABLET PO SCH (08:43)
[2022-02-06] MEDS: ENOXAPARIN INJ 30 MG/0.3 ML SYR SQ SCH (08:43)
[2022-02-06] MEDS: FUROSEMIDE 20 MG TAB PO SCH ×2 (08:43→16:52)
[2022-02-06] MEDS: MIDODRINE HCL 2.5 MG TAB PO SCH ×2 (08:44→20:06)
[2022-02-06] MEDS: guaiFENesin 600 MG TABCR PO SCH ×2 (08:44→20:06)
[2022-02-06] MEDS: METOPROLOL SUCC 25MG EXT REL TAB PO SCH (08:44)
[2022-02-06] MEDS: SERTRALINE HCL 100 MG TABLET PO SCH (08:45)
[2022-02-06] MEDS: CEROVITE ADV FORMULA TAB PO SCH (08:45)
[2022-02-06] MEDS: PANTOprazole 40 MG TAB PO SCH (08:45)
[2022-02-06] MEDS: SPIRONOLACTONE 12.5 MG TAB PO SCH (08:45)
--- NOTE | 2022-02-06 12:34 | Cardiology Progress Note ---
Date of Service February 06, 2022 Assessment & Plan (1) HFrEF (heart failure with reduced ejection fraction): (2) Acute on chronic systolic HF (heart failure): (3) RVF (right ventricular failure): (4) Hypoxia: (5) Elevated troponin: (6) Parkinsons disease: Plan Medically complex 81 year old female with known CAD and HFrEF. LVEF further reduced at 25-30%, global hypokinesis noted. . GDMT Management has been limited by patient's orthostatic hypotension. Overall goals per patient's distinct wishes are ongoing conservative medical therapies only. Elevated troponin likely secondary to acute CHF. 02/06/2022: Acute on chronic systolic heart failure with reduced ejection fra ction has responded to adjustment in medical therapies. No current complaints rest oxygenation improved Nocturnal oximetry reflects need for oxygen supplementation likely multifactorial including underlying parkinsonism. Will need on discharge Diuretic regimen now oral with furosemide 20 mg p.o. twice daily, spironolactone 12.5 mg p.o. daily Discussed daily weights and CHF instructions. CHF packet ordered. Patient on optimal tolerated therapies but high risk for recurrence Patient is scheduled outpatient follow-up with cardiology 02/12/2022 Admission and Anticipated Discharge Date Admission Date: February 03, 2022 Subjective Patient seen and examined, chart, telemetry reviewed. Patient feels improved since admission. Has had good diuresis with weight down 3.5 kg. Breathlessness substantially improved. Nocturnal oximetry does demonstrate significant nocturnal hypoxia. O2 saturations normal on room air when awake Review of Systems Review of Systems: All systems reviewed & are unremarkable except as noted in Subjective Physical Exam Physical Exam: Constitutional: WD/WN, vitals as above + thin; no acute distress Eyes: PERRL ENMT: external ear and nose normal, oropharynx normal Neck: normal visual inspection and trachea midline Respiratory: normal respiratory effort; no cough Auscultation: + diminished lung sounds and + crackles (throughout all lung antoine. ); no rhonchi and no wheezes Cardiovascular: Rate/Rhythm: regular rate and regular rhythm Heart Sounds: normal S1, normal S2 and + murmur (+1/6 systolic murmur) Vessels: normal peripheral pulses; no JVD Extremities: + varicosities; no edema Gastrointestinal (Abdomen): normal bowel sounds, soft, nontender, no hepatosplenomegaly Percussion/Palpation: abdomen soft; abdomen nontender Skin: no rashes, warm and dry Neurologic: PERRL, EOMI, accommodation nl, no face palsy, no dysarthria Motor/Sensory: + tremor Psychiatric: A+Ox3, euthymic affect Results & Data ([facility]) Vital Signs (Past 12 Hours) Vital Signs Temp Pulse Pulse Resp BP Pulse Ox Pulse Ox 02/06/22 08:00 02/06/22 10:39 36.8 C 64 18 102/57 L 93 02/06/22 07:14 36.6 C 68 18 109/59 L 95 02/06/22 04:11 36.6 C 66 14 135/81 96 02/06/22 03:05 61 95 O2 Del Method O2 Del Method O2 Del Method 02/06/22 08:00 Room Air 02/06/22 10:39 Room Air 02/06/22 07:14 Room Air 02/06/22 04:11 Room Air 02/06/22 03:05 Room Air Laboratory Results Laboratory Results - last 24 hr 02/05/22 02/06/22 20:50 06:06 Total Protein (PEP) Pending Albumin (PEP) Pending Egurf-3-Deduburoz Pending Xvkpd-2-Fglkmkaie Pending Rgwi-2-Gqwiaxkh Pending Wjbl-0-Pgmevzyg Pending Gamma Globulins Pending Monoclonal Peak 3 Pending Ser Monoclonl Protein Pending Ser Monoclonal Prot 2 Pending PEP Interpretation Pending Urine Color Yellow Urine Appearance Clear Urine pH 6.0 Ur Specific [place] 1.015 Urine Protein Negative Urine Glucose (UA) Negative Urine Ketones Negative Urine Blood Negative Urine Nitrite Negative Urine Bilirubin Negative Urine Urobilinogen Negative Ur Leukocyte Esterase 2+ H Urine WBC (Auto) 1-5 Urine RBC (Auto) 0-4 U Hyaline Cast (Auto) 0 U Epithel Cells (Auto) 20-30 H Urine Bacteria (Auto) Negative Serum Immunofixation Pending Medications Administered Current Medications Acetaminophen (Acetaminophen 325 Mg Tab) 650 mg PO Q4H PRN PRN Reason: Pain or Fever Stop: 03/05/22 23:40 Aspirin (Aspirin 81 Mg Ectab) 81 mg PO QAM JESUS Stop: 03/06/22 08:59 Last Admin: 02/06/22 08:41 Dose: 81 mg Atorvastatin Calcium (Atorvastatin 40 Mg Tab) 40 mg PO HS [facility] Stop: 03/05/22 23:40 Last Admin: 02/05/22 20:45 Dose: 40 mg Carbidopa/Levodopa (Carbidopa/Levodopa 50/200mg Ext Rel Tab) 1 tab PO HS JESUS Stop: 03/05/22 23:40 Last Admin: 02/05/22 20:46 Dose: 1 tab Carbidopa/Levodopa (Carbidopa/Levodopa 25/100mg Tab) 1.5 tab PO QID JESUS Stop: 03/06/22 08:59 Last Admin: 02/06/22 08:41 Dose: 1.5 tab Cetirizine HCl (Cetirizine Hcl 10 Mg Tablet) 10 mg PO QAM PRN PRN Reason: Allergy Symptoms Stop: 03/05/22 23:40 Last Admin: 02/04/22 08:50 Dose: 10 mg Cyanocobalamin (Cyanocobalamin (B-12) 500 Mcg Tablet) 1,000 mcg PO QPM JESUS Stop: 03/05/22 23:40 Last Admin: 02/05/22 20:48 Dose: 1,000 mcg Enoxaparin Sodium (Enoxaparin Inj 30 Mg/0.3 Ml Syr) 30 mg SQ QAM JESUS Stop: 03/06/22 08:59 Last Admin: 02/06/22 08:43 Dose: Not Given Famotidine (Famotidine 40 Mg Tablet) 40 mg PO DAILY JESUS Stop: 03/06/22 08:59 Last Admin: 02/06/22 08:43 Dose: 40 mg Furosemide (Furosemide 20 Mg Tab) 20 mg PO [id number] JESUS Stop: 03/07/22 16:59 Last Admin: 02/06/22 08:43 Dose: 20 mg Guaifenesin (Guaifenesin 600 Mg Tabcr) 600 mg PO Q12 JESUS Stop: 03/06/22 08:59 Last Admin: 02/06/22 08:44 Dose: 600 mg Ceftriaxone Sodium 1,000 mg/ (Dextrose) 60 mls @ 100 mls/hr IV Q24H JESUS; Protocol Stop: 02/10/22 15:44 Last Infusion: 02/05/22 17:24 Dose: Infused Promethazine HCl 12.5 mg/ (Sodium Chloride) 50.5 mls @ 202 mls/hr IV Q6H PRN PRN Reason: Nausea And Vomiting Stop: 03/08/22 08:20 Last Infusion: 02/06/22 10:00 Dose: Infused Levothyroxine Sodium (Levothyroxine Sodium 125 Mcg Tablet) 125 mcg PO DAILYBB JESUS Stop: 03/06/22 06:29 Last Admin: 02/06/22 06:09 Dose: 125 mcg Melatonin (Melatonin 3 Mg Tab) 6 mg PO HSZ PRN PRN Reason: Sleep Stop: 03/06/22 00:05 Metoprolol Succinate (Metoprolol Succ 25mg Ext Rel Tab) 12.5 mg PO QAM JESUS Stop: 03/06/22 08:59 Last Admin: 02/06/22 08:44 Dose: 12.5 mg Midodrine (Midodrine Hcl 2.5 Mg Tab) 2.5 mg PO BID JESUS Stop: 03/05/22 23:40 Last Admin: 02/06/22 08:44 Dose: 2.5 mg Multivitamins/Minerals (Cerovite Adv Formula Tab) 1 tab PO QAM JESUS Stop: 03/06/22 08:59 Last Admin: 02/06/22 08:45 Dose: 1 tab Nitroglycerin (Nitroglycerin Sl 0.4 Mg/Tab Tab) 0.4 mg SL UD PRN PRN Reason: Chest Pain Stop: 03/05/22 23:40 Pantoprazole Sodium (Pantoprazole 40 Mg Tab) 40 mg PO DAILY JESUS Stop: 03/06/22 08:59 Last Admin: 02/06/22 08:45 Dose: 40 mg Polyethylene Glycol (Polyethylene (Miralax) 17 Gm Pack) 17 gm PO DAILY PRN PRN Reason: Constipation Stop: 03/05/22 23:40 Senna/Docusate Sodium (Docusate Sodium/Senna 50/8.6mg Tab) 2 tab PO QAM JESUS Stop: 03/06/22 08:59 Last Admin: 02/06/22 08:42 Dose: 2 tab Sertraline HCl (Sertraline Hcl 100 Mg Tablet) 100 mg PO QAM [facility] Stop: 03/06/22 08:59 Last Admin: 02/06/22 08:45 Dose: 100 mg Spironolactone (Spironolactone 12.5 Mg Tab) 12.5 mg PO DAILY JESUS Stop: 03/07/22 11:29 Last Admin: 02/06/22 08:45 Dose: 12.5 mg
[2022-02-06] MEDS: cefTRIAXone SODIUM 1,000 MG in DEXTROSE 5% 50 ML IV SCH (15:29)
--- NOTE | 2022-02-06 15:50 | Hospitalist Progress Note ---
Date of Service February 06, 2022 Assessment & Plan (1) Acute hypoxemic respiratory failure: Plan: History systolic dysfunction Secondary to decompensated heart failure underlying pulmonary hypertension Possible underlying obstructive sleep apnea -- On Lasix 20 mg IV twice daily Echo: Severely reduced LV systolic function with severe global hypokinesis EF 15 to 20% Grade 2 diastolic dysfunction Moderate mitral regurg Moderate tricuspid regurg -- Has received Lasix IV daily Diuresed well Transitioned to p.o. Lasix today increased from daily to twice a day Spironolactone added as well Appears euvolemic today --For nocturnal pulse extremity: Will require oxygen at bedtime -- Cardiology service on board Possible UTI --Patient reporting dysuria, suprapubic pain yesterday --Check urine culture: Skin dinorah --ceftriaxone 1 g IV daily day 2 out of 3 hx CAD status post stent -- Continue metoprolol, aspirin, Lipitor hypertension -- BP stable hyperlipidemia -- on statin Rx Parkinson's disease, stable on current regimen hypothyroidism, TS slightly elevated from recent outpatient draw history traumatic subdural hematoma/SAH Chronic anemia, hemoglobin at baseline Prediabetes, hemoglobin A1c of 6.10 August 2021 DVT prophylaxis. Lovenox subcu DNR Disposition PT recommending to transition to shelter facility, patient agreeable Admission and Anticipated Discharge Date Admission Date: February 03, 2022 Subjective Follow-up for acute systolic CHF exacerbation, etc. Seen resting in bed comfortable, not in distress States she feels fine overall No shortness of breath, chest pain, dizziness, palpitations No fevers or chills No abdominal pain, dysuria, flank pain No other symptom Review of Systems Review of Systems: all noted and negative except for above Physical Exam Physical Exam: General- oriented x 3, not in distress, speaks in sentences with no effort or accessory muscle use Eyes- anicteric Neck- no JVD Lungs- clear BS bilaterally, no crackles or wheezing Heart- normal rate, regular rhythm; no murmurs Abdomen- normal bowel sounds, nondistended, soft, no tenderness No CVA tenderness Extremities- no pretibial edema, no calf tenderness Neuro- alert, oriented x 3; no gross focal neurologic deficits Skin- warm & dry Results & Data Results & Data ([facility]) Vital Signs (Past 12 Hours) Vital Signs Temp Pulse Resp BP Pulse Ox O2 Del Method O2 Del Method 02/06/22 15:35 36.6 C 70 19 122/75 92 Room Air 02/06/22 08:00 Room Air 02/06/22 10:39 36.8 C 64 18 102/57 L 93 Room Air 02/06/22 07:14 36.6 C 68 18 109/59 L 95 Room Air 02/06/22 04:11 36.6 C 66 14 135/81 96 Room Air all noted and reviewed including below
[2022-02-06] MEDS ORDERED: COUGH DROP (SUGAR FREE) LOZ 24 LOZ/1 BOX BUCCAL ONE (16:21)
[2022-02-06] MEDS: CYANOCOBALAMIN (B-12) 500 MCG TABLET PO SCH (20:06)
[2022-02-06] MEDS: ATORVASTATIN 40 MG TAB PO SCH (20:06)
[2022-02-06] MEDS: CARBIDOPA/LEVODOPA 50/200MG EXT REL TAB PO SCH (20:06)
[2022-02-07] MEDS: LEVOTHYROXINE SODIUM 125 MCG TABLET PO SCH (05:01)
[2022-02-07] MEDS: FUROSEMIDE 20 MG TAB PO SCH ×2 (08:00→17:36)
[2022-02-07] MEDS: SPIRONOLACTONE 12.5 MG TAB PO SCH (08:00)
[2022-02-07] MEDS: ASPIRIN 81 MG ECTAB PO SCH (08:00)
[2022-02-07] MEDS: ENOXAPARIN INJ 30 MG/0.3 ML SYR SQ SCH (08:00)
[2022-02-07] MEDS: MIDODRINE HCL 2.5 MG TAB PO SCH ×2 (08:01→19:49)
[2022-02-07] MEDS: CARBIDOPA/LEVODOPA 25/100MG TAB PO SCH ×4 (08:01→19:43)
[2022-02-07] MEDS: guaiFENesin 600 MG TABCR PO SCH ×2 (08:01→19:45)
[2022-02-07] MEDS: SERTRALINE HCL 100 MG TABLET PO SCH (08:01)
[2022-02-07] MEDS: PANTOprazole 40 MG TAB PO SCH (08:01)
[2022-02-07] MEDS: CEROVITE ADV FORMULA TAB PO SCH (08:01)
[2022-02-07] MEDS: METOPROLOL SUCC 25MG EXT REL TAB PO SCH (08:01)
[2022-02-07] MEDS: FAMOTIDINE 40 MG TABLET PO SCH (08:01)
[2022-02-07] MEDS: DOCUSATE SODIUM/SENNA 50/8.6MG TAB PO SCH (08:03)
--- NOTE | 2022-02-07 12:31 | Hospitalist Progress Note ---
Date of Service February 07, 2022 Assessment & Plan (1) Acute hypoxemic respiratory failure: Plan: History systolic dysfunction Secondary to decompensated heart failure underlying pulmonary hypertension Possible underlying obstructive sleep apnea Echo: Severely reduced LV systolic function with severe global hypokinesis EF 15 to 20% Grade 2 diastolic dysfunction Moderate mitral regurg Moderate tricuspid regurg -- Placed on Lasix 20 mg IV twice daily Diuresed well Transitioned to p.o. Lasix 20 mg, increased from daily to twice a day Spironolactone 12.5 mg p.o. daily added as well No euvolemic -- nocturnal pulse extremity: Will require oxygen 2 L via nasal cannula at bedtime -- Cardiology service was consulted Possible UTI --Patient reporting dysuria, suprapubic pain yesterday --Check urine culture: Skin dinorah -- Received 3 days of ceftriaxone 1 g IV daily hx CAD status post stent -- Continue metoprolol, aspirin, Lipitor hypertension -- BP stable hyperlipidemia -- on statin Rx Parkinson's disease, stable on current regimen hypothyroidism -- Monitor as outpatient history traumatic subdural hematoma/SAH Chronic anemia, hemoglobin at baseline Prediabetes, hemoglobin A1c of 6.10 August 2021 DVT prophylaxis. Lovenox subcu DNR Disposition transition to [facility] facility, patient agreeable Ff up with PCP in 1 week Follow-up with master sonar technician Dr. Ferro as scheduled Admission and Anticipated Discharge Date Admission Date: February 03, 2022 Subjective Follow-up for acute systolic CHF exacerbation, etc. Seen sitting up in bedside chair, watching TV, just had her lunch Calm, comfortable, not in distress, good spirits States she feels fine overall No shortness of breath, cough, sputum production, chills Suprapubic discomfort and urinary symptoms resolved No other symptoms States she is ready to be transferred to [facility] today Review of Systems Review of Systems: all noted and negative except for above Physical Exam Physical Exam: General- oriented x 3, not in distress, speaks in sentences with no effort or accessory muscle use Eyes- anicteric Neck- no JVD Lungs- clear BS BL Heart- normal rate, regular rhythm; no murmurs Abdomen- normal bowel sounds, nondistended, soft, no suprapubic tenderness Extremities- no pretibial edema, no calf tenderness Neuro- alert, oriented x 3; no gross focal neurologic deficits Skin- warm & dry Results & Data Results & Data ([facility]) Vital Signs (Past 12 Hours) Vital Signs Temp Pulse Pulse Resp BP Pulse Ox Pulse Ox 02/07/22 10:51 36.4 C L 60 19 102/65 95 02/07/22 08:00 95 02/07/22 07:50 02/07/22 07:29 64 02/07/22 07:08 36.7 C 70 19 154/51 H 95 02/07/22 04:20 36.9 C 60 18 101/62 97 O2 Del Method O2 Del Method 02/07/22 10:51 Room Air 02/07/22 08:00 Room Air 02/07/22 07:50 Room Air 02/07/22 07:29 02/07/22 07:08 Room Air 02/07/22 04:20 Room Air all noted and reviewed including below
--- NOTE | 2022-02-07 13:00 | Discharge Summary ---
Discharge Summary Date of Service February 07, 2022 Notes For Next Care Provider Monitor vital signs closely. Lasix increased, Aldactone started. Repeat BMP in 5 to 7 days. Patient needs 5 L of oxygen via nasal cannula while sleeping. Medication Changes From Visit Lasix 20 mg p.o. daily changed to twice daily Spironolactone 12.5 mg p.o. daily started Admission HPI Per Admitting Provider History obtained from patient and records. Medical history significant for chronic systolic heart failure (EF 40-45%, TTE 2021), CAD status post stent, PFO, hypertension, hyperlipidemia, COPD as per records, Parkinson's disease, hypothyroidism, prediabetes, GERD, gastroparesis, history subdural hematoma, chronic anemia (baseline hemoglobin is 11), orthostatic hypotension on Midodrine Monthly confinements since November 2021 for decompensated heart failure. Recent confinement for CHF last month attributed to Florinef. Florinef discontinued on discharge. Patient seen on follow-up at PCP's office 5 days ago. Patient complaining of shortness of breath with leg swelling the last couple of weeks. Dry cough symptoms, unable to expectorate. No chest pain complaints. No weight gain as per patient. Patient compliant with home medications. Bilateral pitting leg edema on provider exam. Outpatient CXR showed pulmonary edema and trace pleural effusions. BNP noted to be abnormal at 13,000. Patient snores during sleep as per family. Episodes of breathlessness at home which awakens patient from sleep. Outpatient provider consulted [facility] road repairer via as [employer]-A-Doc last month regarding symptoms. Consideration for MARIA EUGENIA with episodes of nocturnal awakenings with shortness of breath as per note. Patient seen on Cardiology follow-up visit 2 days ago. Lasix frequency increased to twice a day. Nocturnal pulse ox check requested. Patient brought to ER for evaluation because of worsening shortness of breath symptoms. Patient denies abdominal distention/pain, dysuria symptoms. No fever, no chills. IV Lasix administered at the ER. O2 sats 80s on room air at one point during ER stay. 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, lives with Admission Exam Per Admitting Provider GENERAL: Pleasant, slightly uncomfortable, tremulous, no respiratory distress SKIN: Pallor,, warm HEENT: Bespectacled, pale palpebral conjunctivae, no ptosis, moist buccal mucosa NECK : Supple, no tenderness CHEST : Decreased breath sounds, no tenderness HEART : RRR, systolic murmur ABDOMEN: Some distention, nontender EXTREMITIES : Minimal LE swelling, no LE tenderness, no other conspicuous d eformities noted NEUROLOGIC : Coherent, no facial asymmetry, tremulous, gait and stance not assessed Principal Dx & Hospital Course #1 = Principal Diagnosis (1) Acute hypoxemic respiratory failure: History systolic dysfunction Secondary to decompensated heart failure underlying pulmonary hypertension Possible underlying obstructive sleep apnea Echo: Severely reduced LV systolic function with severe global hypokinesis EF 15 to 20% Grade 2 diastolic dysfunction Moderate mitral regurg Moderate tricuspid regurg -- Placed on Lasix 20 mg IV twice daily Diuresed well Transitioned to p.o. Lasix 20 mg, increased from daily to twice a day Spironolactone 12.5 mg p.o. daily added as well No euvolemic -- nocturnal pulse extremity: Will require oxygen 2 L via nasal cannula at bedtime -- Cardiology service was consulted Possible UTI --Patient reporting dysuria, suprapubic pain yesterday --Check urine culture: Skin dinorah -- Received 3 days of ceftriaxone 1 g IV daily hx CAD status post stent -- Continue metoprolol, aspirin, Lipitor hypertension -- BP stable hyperlipidemia -- on statin Rx Parkinson's disease, stable on current regimen hypothyroidism -- Monitor as outpatient history traumatic subdural hematoma/SAH Chronic anemia, hemoglobin at baseline Prediabetes, hemoglobin A1c of 6.10 August 2021 DVT prophylaxis. Lovenox subcu DNR Disposition transition to [facility] facility, patient agreeable Ff up with PCP in 1 week Follow-up with dot compliance specialist Dr. Ferro as scheduled Discharge Exam General- oriented x 3, not in distress, speaks in sentences with no effort or accessory muscle use Eyes- anicteric Neck- no JVD Lungs- clear BS BL Heart- normal rate, regular rhythm; no murmurs Abdomen- normal bowel sounds, nondistended, soft, no suprapubic tenderness Extremities- no pretibial edema, no calf tenderness Neuro- alert, oriented x 3; no gross focal neurologic deficits Skin- warm & dry Updated Medication List Medication Instructions Recorded Confirmed Type atorvastatin 40 mg tablet 40 mg PO HS 06/25/19 02/03/22 History melatonin 5 mg tablet 5 mg PO HS 01/07/20 02/03/22 History cetirizine 10 mg tablet (Zyrtec) 10 mg PO QAM PRN Allergy Symptoms 08/16/20 02/03/22 History sertraline 100 mg tablet 100 mg PO QAM 08/16/20 02/03/22 History aspirin 81 mg tablet,delayed 81 mg PO QAM 09/26/20 02/03/22 History release cholecalciferol (vitamin D3) 25 25 mcg PO QAM 09/26/20 02/03/22 History mcg (1,000 unit) capsule (Vitamin D3) vit A 300 mcg-C 200 mg-E 27 1 tab PO QAM 09/26/20 02/03/22 History mg-lutein 2 mg and minerals tablet (Ocuvite with Lutein) carbidopa 25 mg-levodopa 100 mg 1.5 tab PO QID 12/31/20 02/03/22 History tablet (Sinemet) sennosides 8.6 mg-docusate sodium 2 tab PO QAM 12/31/20 02/03/22 History 50 mg tablet (Stool Softener-Laxative) carbidopa ER 50 mg-levodopa 200 mg 1 tab PO HS 06/08/21 02/03/22 History tablet,extended release cyanocobalamin (vitamin B-12) 1,000 mcg PO QPM 06/08/21 02/03/22 History 1,000 mcg tablet (Vitamin B-12) carbidopa 25 mg-levodopa 100 mg 1 tab PO DAILY PRN Tremors 30 days 08/20/21 02/03/22 Rx disintegrating tablet #30 tabs metoprolol succinate 25 mg 12.5 mg PO QAM 30 days #15 tabs 08/20/21 02/03/22 Rx tablet,extended release 24 hr acetaminophen 325 mg tablet 975 mg PO Q4 PRN Fever Or Pain 12/04/21 02/03/22 History famotidine 40 mg tablet 40 mg PO DAILY 12/04/21 02/03/22 History ondansetron HCl 4 mg tablet 4 mg PO Q6 PRN Nausea 12/04/21 02/03/22 History pantoprazole 40 mg tablet,delayed 40 mg PO DAILY 12/04/21 02/03/22 History release polyethylene glycol 3350 17 gram 17 g PO DAILY PRN Constipation 12/04/21 02/03/22 History oral powder packet (Miralax) levothyroxine 125 mcg tablet 125 mcg PO DAILYBB #30 tabs 12/07/21 02/03/22 Rx (Synthroid) midodrine 2.5 mg tablet 2.5 mg PO BID #60 tabs 12/13/21 02/03/22 Rx albuterol sulfate 90 mcg/actuation 2 puff inhalation Q6H PRN 02/03/22 02/03/22 History aerosol inhaler Shortness Of Breath Or Wheezing furosemide 20 mg tablet 20 mg PO QAM 02/03/22 02/03/22 History spironolactone 25 mg tablet 12.5 mg PO DAILY 30 days #15 tabs 02/07/22 Rx Hospital Stay Data Consultations 02/03/22 18:53 ED Decision to Admit Stat 02/03/22 23:41 Consult Cardiology Routine Diagnostic Imagining Performed Chest CTA 02/03/22 16:55 CT ANGIOGRAM OF THE CHEST CLINICAL HISTORY: Fall. Dyspnea. COMPARISON STUDY: Chest x-ray dated 02/03/2022. Chest CT dated 12/04/2021. TECHNIQUE: Following the IV administration of 107 cc of Optiray 300, CT angiogram of the chest was performed from the upper abdomen to the thoracic inlet utilizing the pulmonary embolus protocol. Images are reviewed in the axial, sagittal, and coronal planes. 3-D MIPS images are created and assessed. IV contrast was administered without complication. A dose lowering technique was utilized adhering to the principles of ALARA. The examination is compromised by motion artifact. CT DOSE: 1603.12 mGy.cm FINDINGS: Thyroid: Atrophic and heterogeneous. Thoracic aorta: There is atherosclerotic calcification of the thoracic aorta, which is normal in caliber and demonstrates bovine variant arch anatomy. The thoracic aorta is not opacified. Pulmonary vasculature: The pulmonary trunk is dilated, measuring 3.7 cm in diameter. This suggests pulmonary artery hypertension. There are no filling defects identified in main or lobar pulmonary branches to suggest pulmonary embolus. The segmental and subsegmental branches cannot be evaluated due to lack of contrast opacification. Heart: The heart is markedly enlarged noting a small to moderate pericardial effusion. The coronary arteries are densely calcified. Lungs and pleural spaces: Evaluation of the lung parenchyma is significantly degraded by motion artifact. There are small pleural effusions with dependent atelectasis. No airspace consolidation is seen typical for pneumonia. The trachea and central airways are clear. Mediastinum: There is no mediastinal lymphadenopathy. Kaitlin: Clear. Axillae: There is no axillary lymphadenopathy. Upper abdomen: There is a small to moderate hiatal hernia. A small amount of perihepatic and perisplenic ascites is partially visualized in the upper abdomen. Reflux of contrast into the IVC and hepatic veins suggests cardiac dysfunction. Skeletal structures: The skeletal structures are osteopenic. No lytic or blastic bony lesions are seen. Arthritic change is noted in the shoulders and thoracic spine. There is thoracic hyperkyphosis. There are subacute appearing right posterior 9th and 10th rib fractures. IMPRESSION: 1. Motion compromised examination. 2. There is no evidence of central pulmonary embolus in the main or lobar pulmonary arteries. The segmental and subsegmental branches cannot be assessed due to lack of contrast opacification. 3. Marked cardiomegaly with evidence of pulmonary artery hypertension. 4. Small pleural effusions with bibasilar atelectasis. 5. There are subacute appearing right posterior 9th and 10th rib fractures. Clinical correlation will be required. 6. A small amount of ascites is noted in the upper abdomen. 7. Additional findings as above. ACT 112: Negative or not required by law. Electronically signed by: Porfirio Thomas M.D. 02/03/2022 6:[address] 02/03/22 16:55 CT SCAN OF THE BRAIN WITHOUT IV CONTRAST CLINICAL HISTORY: Fall. COMPARISON STUDY: CT of the brain dated 09/26/2020. TECHNIQUE: Unenhanced axial CT scan of the brain is performed from the vertex to the skull base. A dose lowering technique was utilized adhering to the principles of ALARA. The examination is compromised by motion artifact. The patient was scanned twice in an effort to improve image quality. FINDINGS: Brain parenchyma: There is age-related involutional change noting moderate confluent subcortical and periventricular microangiopathic disease. There is no hemorrhage, mass effect, or evidence of acute territorial ischemia by CT criteria. Ruggiero-white matter differentiation is preserved. No extra-axial fluid collection is seen. Ventricles, sulci, cisterns: Prominent secondary to involutional change. Intracranial vasculature: There is atherosclerotic calcification of the cavernous carotid and vertebral artery. Calvarium: The skeletal structures are osteopenic. No depressed calvarial fracture is identified. Sinuses and mastoids: The visualized paranasal sinuses are clear. There is thickening and sclerosis of the right maxillary sinus which is similar to previous. The mastoid air cells are well pneumatized. Orbits: The bony orbits are grossly intact. There are bilateral ocular lens implants. IMPRESSION: There is no hemorrhage, mass effect, or evidence of acute territorial ischemia by CT criteria. ACT 112: Negative or not required by law. Electronically signed by: Porfirio Thomas M.D. 02/03/2022 5:26 PM Chest X-Ray 02/04/22 09:20 XR chest 1V portable CLINICAL HISTORY: Shortness of breath, Rales, LLL inaudible. COMPARISON STUDY: Chest radiograph and chest CT February 03, 2022. FINDINGS: Skin fold projects over the left chest. There is no pneumothorax. Small bilateral pleural effusions are again noted. There is cardiomegaly with mild interstitial thickening. No consolidation is identified to suggest pneumonia. IMPRESSION: Cardiomegaly with mild interstitial pulmonary edema and small bilateral pleural effusions. ACT 112: Negative or not required by law. Electronically signed by: Gabriel Irving M.D. 02/04/2022 10:19 AM 02/03/22 16:55 CT angio chest PE protocol Stat CT head/brain wo con Stat Pending Results Patient Have Any Pending Studies at Discharge: No Discharge Instructions Given to Patient (Per Discharging Provider) Monitor volume status closely. Lasix increased from 20 mg p.o. daily to twice daily. Aldactone 12.5 milligrams p.o. daily started. Patient needs 2 L of oxygen via nasal cannula while sleeping. Please refer to accompanying hospital discharge summary for further details. Total Time Total Time Spent Total Time Spent (In Minutes): >30 minutes
--- NOTE | 2022-02-07 13:26 | Cardiology Progress Note ---
Date of Service February 07, 2022 Assessment & Plan (1) HFrEF (heart failure with reduced ejection fraction): (2) Acute on chronic systolic HF (heart failure): (3) RVF (right ventricular failure): (4) Hypoxia: (5) Elevated troponin: (6) Parkinsons disease: Plan Medically complex 81 year old female with known CAD and HFrEF. LVEF further reduced at 25-30%, global hypokinesis noted. . GDMT Management has been limited by patient's orthostatic hypotension. Overall goals per patient's distinct wishes are ongoing conservative medical therapies only. Elevated troponin likely secondary to acute CHF. 02/06/2022: Acute on chronic systolic heart failure with reduced ejection fra ction has responded to adjustment in medical therapies. No current complaints rest oxygenation improved Nocturnal oximetry reflects need for oxygen supplementation likely multifactorial including underlying parkinsonism. Will need on discharge Diuretic regimen now oral with furosemide 20 mg p.o. twice daily, spironolactone 12.5 mg p.o. daily Discussed daily weights and CHF instructions. CHF packet ordered. Patient on optimal tolerated therapies but high risk for recurrence Patient is scheduled outpatient follow-up with cardiology 02/12/2022 02/07/2022 patient continues to remain stable with good compensation on oral regimen. Plan is for discharge today to [facility]. Would recommend nocturnal oxygen on discharge given abnormal oximetry Admission and Anticipated Discharge Date Admission Date: February 03, 2022 Subjective Patient seen and examined, chart, telemetry reviewed. Clinically improved since admission Good oxygenation on room air Tolerating current medications without profound orthostasis Physical Exam Physical Exam: Constitutional: WD/WN, vitals as above + thin; no acute distress Eyes: PERRL ENMT: external ear and nose normal, oropharynx normal Neck: normal visual inspection and trachea midline Respiratory: normal respiratory effort; no cough Auscultation: + diminished lung sounds (But improved); no rhonchi and no wheezes Cardiovascular: Rate/Rhythm: regular rate and regular rhythm Heart Sounds: normal S1, normal S2 and + murmur (+1/6 systolic murmur) Vessels: normal peripheral pulses; no JVD Extremities: + varicosities; no edema Gastrointestinal (Abdomen): normal bowel sounds, soft, nontender, no hepatosplenomegaly Percussion/Palpation: abdomen soft; abdomen nontender Skin: no rashes, warm and dry Neurologic: PERRL, EOMI, accommodation nl, no face palsy, no dysarthria Motor/Sensory: + tremor Psychiatric: A+Ox3, euthymic affect Results & Data ([facility]) Vital Signs (Past 12 Hours) Vital Signs Temp Pulse Pulse Resp BP Pulse Ox Pulse Ox 02/07/22 10:51 36.4 C L 60 19 102/65 95 02/07/22 08:00 95 02/07/22 07:50 02/07/22 07:29 64 02/07/22 07:08 36.7 C 70 19 154/51 H 95 02/07/22 04:20 36.9 C 60 18 101/62 97 O2 Del Method O2 Del Method 02/07/22 10:51 Room Air 02/07/22 08:00 Room Air 02/07/22 07:50 Room Air 02/07/22 07:29 02/07/22 07:08 Room Air 02/07/22 04:20 Room Air
[2022-02-07] MEDS: cefTRIAXone SODIUM 1,000 MG in DEXTROSE 5% 50 ML IV SCH (14:39)
[2022-02-07] MEDS: CARBIDOPA/LEVODOPA 50/200MG EXT REL TAB PO SCH (19:42)
[2022-02-07] MEDS: ATORVASTATIN 40 MG TAB PO SCH (19:44)
[2022-02-07] MEDS: CYANOCOBALAMIN (B-12) 500 MCG TABLET PO SCH (19:46)
[2022-02-08] MEDS: LEVOTHYROXINE SODIUM 125 MCG TABLET PO SCH (06:23)
[2022-02-08 07:14] LABS: Creatinine Clr Calc Pharmacy 26.1 ml/min; Est GFR (African American) 44.8 ml/min; Est GFR (Non-African American) 38.6 ml/min
[2022-02-08] MEDS: SERTRALINE HCL 100 MG TABLET PO SCH (08:17)
[2022-02-08] MEDS: METOPROLOL SUCC 25MG EXT REL TAB PO SCH (08:17)
[2022-02-08] MEDS: SPIRONOLACTONE 12.5 MG TAB PO SCH (08:17)
[2022-02-08] MEDS: CEROVITE ADV FORMULA TAB PO SCH (08:17)
[2022-02-08] MEDS: MIDODRINE HCL 2.5 MG TAB PO SCH (08:17)
[2022-02-08] MEDS: FAMOTIDINE 40 MG TABLET PO SCH (08:17)
[2022-02-08] MEDS: guaiFENesin 600 MG TABCR PO SCH (08:17)
[2022-02-08] MEDS: PANTOprazole 40 MG TAB PO SCH (08:17)
[2022-02-08] MEDS: FUROSEMIDE 20 MG TAB PO SCH (08:17)
[2022-02-08] MEDS: ASPIRIN 81 MG ECTAB PO SCH (08:18)
[2022-02-08] MEDS: CARBIDOPA/LEVODOPA 25/100MG TAB PO SCH ×2 (08:18→12:56)
[2022-02-08] MEDS: ENOXAPARIN INJ 30 MG/0.3 ML SYR SQ SCH (08:18)
[2022-02-08] MEDS: DOCUSATE SODIUM/SENNA 50/8.6MG TAB PO SCH (08:18)
[2022-02-08 17:46] LABS: Albumin 3.6 g/dL (3.8-4.8); Alpha 1 Globulin 0.3 g/dL (0.2-0.3); Alpha 2 Globulin 0.6 g/dL (0.5-0.9); Beta-1-Globulin 0.4 g/dL (0.4-0.6); Beta-2-Globulin 0.2 g/dL (0.2-0.5); Gamma Globulin 0.6 g/dL (0.8-1.7); Monoclonal Protein Band 1 DNR g/dL (NONE DETECTED); Monoclonal Protein Band 2 DNR g/dL (NONE DETECTED); Monoclonal Protein Band 3 DNR g/dL (NONE DETECTED); Total Protein 5.8 g/dL (6.1-8.1)
--- NOTE | 2022-02-08 18:39 | Hospitalist Progress Note ---
Date of Service February 08, 2022 Assessment & Plan (1) Acute hypoxemic respiratory failure: Plan: History systolic dysfunction Secondary to decompensated heart failure underlying pulmonary hypertension Possible underlying obstructive sleep apnea Echo: Severely reduced LV systolic function with severe global hypokinesis EF 15 to 20% Grade 2 diastolic dysfunction Moderate mitral regurg Moderate tricuspid regurg -- Placed on Lasix 20 mg IV twice daily Diuresed well Transitioned to p.o. Lasix 20 mg, increased from daily to twice a day Spironolactone 12.5 mg p.o. daily added as well No euvolemic -- nocturnal pulse extremity: Will require oxygen 2 L via nasal cannula at bedtime -- Cardiology service was consulted Patient to transition to [facility] facility today Possible UTI --Patient reporting dysuria, suprapubic pain yesterday --Check urine culture: Skin dinorah -- Received 3 days of ceftriaxone 1 g IV daily hx CAD status post stent -- Continue metoprolol, aspirin, Lipitor hypertension -- BP stable hyperlipidemia -- on statin Rx Parkinson's disease, stable on current regimen hypothyroidism -- Monitor as outpatient history traumatic subdural hematoma/SAH Chronic anemia, hemoglobin at baseline Prediabetes, hemoglobin A1c of 6.10 August 2021 DVT prophylaxis. Lovenox subcu DNR Disposition transition to [facility] facility, patient agreeable Ff up with PCP in 1 week Follow-up with mender hand Dr. Ferro as scheduled Admission and Anticipated Discharge Date Admission Date: February 03, 2022 Subjective Follow-up for acute CHF, etc. Seen resting in bedside chair, comfortable, not in distress, in good spirits States she feels fine overall No shortness of breath, chest pain No new symptoms States she is ready for discharge today Review of Systems Review of Systems: all noted and negative except for above Physical Exam Physical Exam: General- oriented x 3, not in distress, speaks in sentences with no effort or accessory muscle use Eyes- anicteric Neck- no JVD Lungs- clear breath sounds bilaterally Heart- normal rate, regular rhythm; no murmurs Abdomen- normal bowel sounds, nondistended, soft, nontender Extremities- no pretibial edema, no calf tenderness Neuro- alert, oriented x 3; no new gross focal neurologic deficits Skin- warm & dry Results & Data Results & Data ([facility]) Vital Signs (Past 12 Hours) Vital Signs Temp Pulse Pulse Pulse Resp BP Pulse Ox 02/08/22 12:39 37.1 C 64 67 18 109/67 98 02/08/22 11:59 37.1 C 64 18 109/67 98 02/08/22 07:38 36.5 C 63 19 134/77 93 02/08/22 07:00 66 O2 Del Method 02/08/22 12:39 02/08/22 11:59 Room Air 02/08/22 07:38 Room Air 02/08/22 07:00 all noted and reviewed including below
[2022-02-13 14:56] LABS: Kappa Lambda Ratio 1.22 (1.29-2.55)
== END 2022-02-08 13:04 | DRG 291 ==
LOC: ED 15:58 → 2S 20:29

== ENCOUNTER 2022-06-30 17:55 | Inpatient (IN) ==
--- NOTE | 2022-06-30 18:35 | Emergency Department Note ---
Impression & Plan Breathlessness, Parkinson disease, COVID-19, Atrial tachycardia ED Provider Note Provider: Michael Segovia MD DATE OF SERVICE: 06/30/2022 CHIEF COMPLAINT: Shortness of breath HISTORY OF PRESENT ILLNESS: Patient is a 81-year-old female history of heart failure, hypertension, Parkinson's disease, GERD, and anemia presenting here via ambulance from her home today. Unfortunately been having issues controlling tremor with her Parkinson's. Reports however her primary reason for coming today was worsening shortness of breath. States is improved slightly and she has oxygen she uses intermittently. No sick contacts reported. Reports her shortness of breath without the last day or so but particular worse today. Denies significant swelling. States she feels a bit thirsty. Denies signif icant chest pain or abdominal pain to me. States she did slide to the ground next to the dryer due to her tremors and some weakness yesterday but did not suffer any significant injury or fall. Denies any significant history of a cardiac arrhythmia to me. Denies syncope. PAST MEDICAL HISTORY: As noted above MEDICATIONS: Reviewed home medications includes Lasix SOCIAL HISTORY: , lives at home PHYSICAL EXAM: GENERAL: alert and oriented in no acute distress on stretcher Head: normocephalic and atraumatic EYES: No injection, discharge or icterus. NECK: Trachea midline. Supple. ENT: Mucous membranes pink and moist. LUNGS: Airway patent. No retractions. Breath sounds clear with good air entry bilaterally. HEART: Irregular tachycardic rate and rhythm. No chest wall tenderness ABDOMEN: Soft and non-tender, without guarding or rebound. SKIN: Acyanotic, warm, dry, without rashes EXTREMITIES: Without swelling, tenderness or deformity NEUROLOGICAL: No focal deficits. At times significant tremor. No aphasia. No facial droop or slurred speech. Normal strength and tone in the extremities. Sensation to gross touch normal. EK bpm atrial fibrillation without acute ST segment elevation with a QTc of 497. Some slight lead I and aVL T wave inversions. Some mild baseline tremor appreciated. CONTINUOUS CARDIAC MONITORING: was ordered and showed a heart rate of 90s-110s bpm in what appears to be atrial fibrillation Patient's laboratory studies and imaging reviewed. Differential includes Reactive airway disease, pneumonia, pneumothorax, COPD, CHF, infections, cardiac ischemia, pulmonary embolism, musculoskeletal, gastrointestinal, as well as other pathologies. IMPRESSION/MEDICAL DECISION MAKING: Patient reports a history of Parkinson's as well as significant heart failure from notes now with some shortness of breath. Not significantly hypoxic but placed on a small amount of oxygen. Some difficulty obtaining clear baselines given her underlying tremors from the Parkinson's. No significant trauma reported. Denies significant pain at this time. Does have a history of heart failure as well but does not appear significantly fluid overloaded least in the lower extremities. Blood work and COVID flu testing were sent. Chest x-ray obtained. Reviewed prior [facility] medical records; seems indicate the patient was placed on hospice this past fall. Patient does test positive for COVID-19. Labs without significant leukocytosis with a slight anemia. Without evidence of consolidation or significant pulmonary edema. No severe chemistry abnormalities or electrolyte abnormality noted. Discussed with patient and son who later arrives. Patient understands that she is on hospice and does not want super aggressive treatment but is not no treatment at this time. Given again with possibly appears like A-fib given a bit of metoprolol to see if this helps with her breathing symptoms as well as some steroid. Significant treatment with a dose of IV metoprolol. Discussed further care at the hospital given limitations of care at home at this time. She agreed with this. Hospitalist was consulted. Recent tremor exacerbation likely related to illness. Will defer any aggressive anticoagulation at this point given her hospice status. DIAGNOSIS: COVID-19, shortness of breath, tachycardia DISPOSITION: Hospitalist will evaluate Patient was agreeable with this plan. Son was updated at bedside. Past Med/Surg History Medical History Anxiety CAD (coronary artery disease) Status post August 2007 PCI of both the RCA and LCX with FABIOLA Status post April 2008 PCI of the mid RCA with 2 FABIOLA Status post May 2008 PCI of the proximal LAD Status post March 2013 PCI of the RCA with a FABIOLA 7 stents total. Chronic back pain Chronic kidney disease stage 3 - monitors Dysphagia Esophageal spasm Gastroparesis GERD (gastroesophageal reflux disease) HFrEF (heart failure with reduced ejection fraction) Hyperlipidemia Hypertension Hypothyroidism Hypothyroidism Parkinson disease Parkinsons disease Prediabetes Per records Shortness of breath Surgical History History of ankle surgery LEFT History of appendectomy History of cardiac cath 08/2007, 04/2008, 2008, 2012 History of cholecystectomy Per records History of colonoscopy History of heart artery stent x7 total History of herniorrhaphy Per records History of hysterectomy History of thumb surgery Per records- right thumb Hx of angioplasty FOLLOWS [place] S/P left knee arthroscopy S/P right knee arthroscopy x2 Family History Mother Diabetes Brother Myocardial infarction Other No family history of adverse response to anesthesia Social History Smoking Status: Never smoker Second Hand Exposure: No; Hx Alcohol Use: No Hx Substance Use: No Preferred Language: Bengali Communication Ability: Effective Facility Manager Required: No Beliefs That Will Affect Care: None marital status: Current Living Situation: Spouse How many Children do You have: 4 Feels Safe at Home: Yes Assistive Devices: Walker and Wheelchair Allergies Allergies Allergy/AdvReac Type Severity Reaction Status Date / Time celecoxib AdvReac Intermediate GI SYMPTOMS Verified 02/03/22 17:12 aspirin AdvReac Mild Gastrointestinal Verified 02/03/22 17:12 Upset with 325mg dose. hydrocodone AdvReac Unknown STOMACH Verified 02/03/22 17:12 IRRITATION Home Meds Home Medications Medication Instructions Recorded Confirmed atorvastatin 40 mg tablet 40 mg PO HS 06/25/19 06/30/22 melatonin 5 mg tablet 5 mg PO HS 01/07/20 06/30/22 sertraline 100 mg tablet 100 mg PO QAM 08/16/20 06/30/22 aspirin 81 mg tablet,delayed 81 mg PO QAM 09/26/20 06/30/22 release cholecalciferol (vitamin D3) 25 25 mcg PO QAM 09/26/20 06/30/22 mcg (1,000 unit) capsule (Vitamin D3) carbidopa ER 50 mg-levodopa 200 mg 1 tab PO QID 06/08/21 06/30/22 tablet,extended release cyanocobalamin (vitamin B-12) 1,000 mcg PO QPM 06/08/21 06/30/22 1,000 mcg tablet (Vitamin B-12) acetaminophen 325 mg tablet 975 mg PO Q4 PRN Fever Or Pain 12/04/21 06/30/22 famotidine 40 mg tablet 40 mg PO DAILY 12/04/21 06/30/22 pantoprazole 40 mg tablet,delayed 40 mg PO DAILY 12/04/21 06/30/22 release polyethylene glycol 3350 17 gram 17 g PO DAILY PRN Constipation 12/04/21 06/30/22 oral powder packet (Miralax) albuterol sulfate 90 mcg/actuation 2 puff inhalation Q6H PRN 02/03/22 06/30/22 aerosol inhaler Shortness Of Breath Or Wheezing cetirizine 10 mg tablet 10 mg PO DAILY 06/30/22 06/30/22 levothyroxine 150 mcg tablet 150 mcg PO DAILYBB 06/30/22 06/30/22 [id number] 250 mg-dha 90 1 cap PO DAILY 06/30/22 06/30/22 mg-epa 160 [id number] capsule (Ocuvite Adult 50 Plus) sennosides 8.6 mg-docusate sodium 2 tab-cap PO QAM 06/30/22 06/30/22 50 mg tablet (Senna Plus) spironolactone 25 mg tablet 12.5 mg PO QAM 06/30/22 06/30/22 Previous Rx's Medication Instructions Recorded metoprolol succinate 25 mg 12.5 mg PO QAM 30 days #15 tabs 08/20/21 tablet,extended release 24 hr furosemide 20 mg tablet 20 mg PO BID #60 tabs 02/07/22 Results & Data (ED) Vital Signs Vital Signs - 24 hr 06/30/22 18:04 06/30/22 18:10 06/30/22 18:46 Temperature 36.8 C Temperature Source Oral Pulse Rate 105 H 104 H Pulse Rate [Apical] Pulse Rhythm Regular Pulse Strength Normal Respiratory Rate 19 Respiratory Effort / Characteristics Non-Labored Spontaneous Respiratory Depth Normal Respiratory Pattern Regular Blood Pressure 152/89 H Blood Pressure [Right Arm] Blood Pressure Mean 110 Blood Pressure Mean [Right Arm] Pulse Oximetry 92 Oxygen Delivery Method Nasal Cannula Nasal Cannula Oxygen Flow Rate 2 2 Sepsis Recent Fever Within 48 Hours No Sepsis New/Unexplained Change in Mental Status N/A Sepsis Action Taken by Nursing No Action Required 06/30/22 19:39 06/30/22 19:42 Temperature Temperature Source Pulse Rate 102 H Pulse Rate [Apical] 91 H Pulse Rhythm Pulse Strength Respiratory Rate 22 Respiratory Effort / Characteristics Non-Labored Spontaneous Respiratory Depth Normal Respiratory Pattern Regular Blood Pressure 132/101 H Blood Pressure [Right Arm] 134/90 Blood Pressure Mean Blood Pressure Mean [Right Arm] 104 Pulse Oximetry 100 Oxygen Delivery Method Room Air Oxygen Flow Rate Sepsis Recent Fever Within 48 Hours Sepsis New/Unexplained Change in Mental Status Sepsis Action Taken by Nursing Laboratory Data 06/30/22 18:10 06/30/22 18:10 Lab Results 06/30/22 06/30/22 06/30/22 Range/Units 18:10 18:10 18:10 WBC 5.36 (4.8-10.8) K/ul RBC 3.87 L (4.20-5.40) M/uL Hgb 11.8 L (12.0-16.0) g/dl Hct 36.4 L (37.0-47.0) % MCV 94.1 (80.0-100.0) fL MCH 30.5 (25.0-34.0) pg MCHC 32.4 (32.0-36.0) g/dL RDW Std Deviation 62.4 H (36.4-46.3) fL RDW Coeff of Ananya 18.1 H (11.5-14.5) % Plt Count 199 (130-400) K/uL MPV 10.5 (9.4-12.4) fL Immature Gran % (Auto) 0.2 % Neut % (Auto) 56.0 % Lymph % (Auto) 29.5 % Randall % (Auto) 12.1 % Eos % (Auto) 1.5 % Baso % (Auto) 0.7 % Neut # (Auto) 3.00 (1.40-6.50) K/uL Lymph # (Auto) 1.58 (1.2-3.4) K/uL Randall # (Auto) 0.65 H (0.11-0.59) K/uL Eos # (Auto) 0.08 (0-0.50) K/uL Baso # (Auto) 0.04 (0-0.2) K/uL Immature Gran # (Auto) 0.01 (0.01-0.20) K/uL PT 11.8 (9.0-12.0) Seconds INR 1.1 (0.9-1.1) Sodium (136-145) mmol/L Potassium (3.5-5.1) mmol/L Chloride (98-107) mmol/L Carbon Dioxide (21-32) mmol/L Anion Gap (3-11) BUN (6-23) mg/dl Creatinine (0.6-1.2) mg/dl Est Cr Clr Drug Dosing ml/min Est GFR ( Amer) ml/min Est GFR (Non-Af Amer) ml/min BUN/Creatinine Ratio (10-20) Glucose (70-99(Fasting)) mg/dl Calcium (8.5-10.1) mg/dl Magnesium (1.7-2.4) mg/dl Total Bilirubin (0.2-1.0) mg/dl AST (13-39) U/L ALT (7-52) U/L Alkaline Phosphatase (34-104) U/L Troponin I High Sens (0-14) pg/ml B-Natriuretic Peptide (0-100) pg/ml Total Protein (6.0-8.3) gm/dl Albumin (3.4-5.0) gm/dl Globulin (2.5-4.0) gm/dl Albumin/Globulin Ratio (0.9-2) TSH (0.300-4.500) uIu/ml SARS-CoV-2 (PCR) POSITIVE A* (Negative) Influenza Type A (PCR) Negative (Neg) Influenza Type B (PCR) Negative (Neg) RSV (RT-PCR) Negative (Neg) 06/30/22 06/30/22 06/30/22 Range/Units 18:10 18:10 18:10 WBC (4.8-10.8) K/ul RBC (4.20-5.40) M/uL Hgb (12.0-16.0) g/dl Hct (37.0-47.0) % MCV (80.0-100.0) fL MCH (25.0-34.0) pg MCHC (32.0-36.0) g/dL RDW Std Deviation (36.4-46.3) fL RDW Coeff of Ananya (11.5-14.5) % Plt Count (130-400) K/uL MPV (9.4-12.4) fL Immature Gran % (Auto) % Neut % (Auto) % Lymph % (Auto) % Randall % (Auto) % Eos % (Auto) % Baso % (Auto) % Neut # (Auto) (1.40-6.50) K/uL Lymph # (Auto) (1.2-3.4) K/uL Randall # (Auto) (0.11-0.59) K/uL Eos # (Auto) (0-0.50) K/uL Baso # (Auto) (0-0.2) K/uL Immature Gran # (Auto) (0.01-0.20) K/uL PT (9.0-12.0) Seconds INR (0.9-1.1) Sodium 139 (136-145) mmol/L Potassium 3.6 (3.5-5.1) mmol/L Chloride 101 (98-107) mmol/L Carbon Dioxide 32 (21-32) mmol/L Anion Gap 6 (3-11) BUN 19 (6-23) mg/dl Creatinine 1.18 (0.6-1.2) mg/dl Est Cr Clr Drug Dosing 25.9 ml/min Est GFR ( Amer) 49.4 ml/min Est GFR (Non-Af Amer) 42.6 ml/min BUN/Creatinine Ratio 16.1 (10-20) Glucose 89 (70-99(Fasting)) mg/dl Calcium 9.1 (8.5-10.1) mg/dl Magnesium 1.9 (1.7-2.4) mg/dl Total Bilirubin 0.7 (0.2-1.0) mg/dl AST 13 (13-39) U/L ALT 3 L (7-52) U/L Alkaline Phosphatase 51 (34-104) U/L Troponin I High Sens 48.3 H (0-14) pg/ml B-Natriuretic Peptide 809 H (0-100) pg/ml Total Protein 6.7 (6.0-8.3) gm/dl Albumin 4.4 (3.4-5.0) gm/dl Globulin 2.3 L (2.5-4.0) gm/dl Albumin/Globulin Ratio 1.9 (0.9-2) TSH 0.470 (0.300-4.500) uIu/ml SARS-CoV-2 (PCR) (Negative) Influenza Type A (PCR) (Neg) Influenza Type B (PCR) (Neg) RSV (RT-PCR) (Neg) Administered Medications Discontinued Medications Dexamethasone Sodium Phosphate (DexamethasonePf 10 Mg/Ml Vial) 6 mg IV NOW ONE Stop: 06/30/22 19:28 Last Admin: 06/30/22 19:37 Dose: 6 mg Documented By: MED Metoprolol Tartrate (Metoprolol Tartrate 1 Mg/Ml Vial) 5 mg IV NOW STA Stop: 06/30/22 19:29 Last Admin: 06/30/22 19:39 Dose: 5 mg Documented By: MED Imaging Data Radiologist's Impression: Chest X-Ray 06/30/22 18:18 SINGLE VIEW CHEST CLINICAL HISTORY: Dyspnea FINDINGS: An AP, portable, upright chest radiograph is compared to study dated 02/04/2022 and correlated with chest CT dated 02/03/2022. The heart is enlarged noting atherosclerotic calcification of the thoracic aorta. The pulmonary vasculature is noncongested. Chronic interstitial thickening is similar to previous. Scarring/atelectasis is noted at the lung bases. The lungs and pleural spaces are otherwise clear. No pneumothorax is seen. The skeletal structures are osteopenic. The bony thorax is grossly intact. IMPRESSION: Cardiomegaly with no active disease in the chest. ACT 112: Negative or not required by law. Electronically signed by: Porfirio Thomas M.D. 06/30/2022 7:07 PM Discharge Plan Visit Data Chief Complaint: Hyperventilation Stated Complaint: SOB ED Provider: Michael Segovia Discharge Problem: Breathlessness, Parkinson disease, COVID-19, Atrial tachycardia Patient Disposition: Being Evaluated by Hospitalist Discharge Instructions Interventions: ED Discharge Assessment Last Done: 06/30/22 22:54
[2022-06-30 19:05] LABS: Influenza A virus by PCR Negative (Neg); Influenza B virus by PCR Negative (Neg); RSV by PCR Negative (Neg)
[2022-06-30 19:08] LABS: SARS CoV2 RNA(COVID-19) Ceph POSITIVE (Negative)
--- NOTE | 2022-06-30 19:08 | XRay Report ---
SINGLE VIEW CHEST CLINICAL HISTORY: Dyspnea FINDINGS: An AP, portable, upright chest radiograph is compared to study dated 02/04/2022 and correlat ed with chest CT dated 02/03/2022. The heart is enlarged noting atherosclerotic calcification of the t horacic aorta. The pulmonary vasculature is noncongested. Chronic interstitial thickening is similar to previous. Scarring/atelectasis is noted at the lung bases. The lungs and pleural spaces are otherw ise clear. No pneumothorax is seen. The skeletal structures are osteopenic. The bony thorax is grossl y intact. IMPRESSION: Cardiomegaly with no active disease in the chest. ACT 112: Negative or not required by law. Electronically signed by: Porfirio Thomas M.D. 06/30/2022 7:07 PM
[2022-06-30 19:14] LABS: Basophils # (auto) 0.04 K/uL (0-0.2); Basophils % (auto) 0.7 %; Eosinophils # (auto) 0.08 K/uL (0-0.50); Eosinophils % (auto) 1.5 %; Hematocrit (blood only) 36.4 % (37.0-47.0); Hemoglobin 11.8 g/dl (12.0-16.0); Immature Granulocytes # (auto) 0.01 K/uL (0.01-0.20); Immature Granulocytes % (auto) 0.2 %; Lymphocytes # (auto) 1.58 K/uL (1.2-3.4); Lymphocytes % (auto) 29.5 %; Mean Corpuscular Hemoglobin 30.5 pg (25.0-34.0); Mean Corpuscular Hgb Conc 32.4 g/dL (32.0-36.0); Mean Corpuscular Volume 94.1 fL (80.0-100.0); Mean Platelet Volume 10.5 fL (9.4-12.4); Monocytes # (auto) 0.65 K/uL (0.11-0.59); Monocytes % (auto) 12.1 %; Platelet Count 199 K/uL (130-400); RDW Coefficient of Variation 18.1 % (11.5-14.5); RDW Standard Deviation 62.4 fL (36.4-46.3); Red Blood Count 3.87 M/uL (4.20-5.40); White Blood Count 5.36 K/ul (4.8-10.8)
[2022-06-30 19:25] LABS: Albumin Globulin Ratio 1.9 (0.9-2); Albumin Level 4.4 gm/dl (3.4-5.0); BUN Creatinine Ratio 16.1 (10-20); Bilirubin,Total 0.7 mg/dl (0.2-1.0); Calcium 9.1 mg/dl (8.5-10.1); Creatinine Clr Calc Pharmacy 25.9 ml/min; Est GFR (African American) 49.4 ml/min; Est GFR (Non-African American) 42.6 ml/min; Globulin 2.3 gm/dl (2.5-4.0); Magnesium 1.9 mg/dl (1.7-2.4); Potassium 3.6 mmol/L (3.5-5.1); Total Protein 6.7 gm/dl (6.0-8.3)
[2022-06-30] MEDS ORDERED: dexAMETHasone**PF** 10 MG/ML VIAL IV ONE (19:27)
[2022-06-30] MEDS ORDERED: METOPROLOL TARTRATE 1 MG/ML VIAL IV STA (19:28)
[2022-06-30 19:32] LABS: Troponin I High Sensitivity 48.3 pg/ml (0-14)
[2022-06-30 19:37] LABS: INR 1.1 (0.9-1.1); Prothrombin Time 11.8 Seconds (9.0-12.0)
[2022-06-30] MEDS ORDERED: ACETAMINOPHEN 325 MG TAB PO PRN (23:48)
[2022-06-30] MEDS ORDERED: LEVALBUTEROL HCL 1.25 MG/3 ML NEB NEB PRN (23:48)
[2022-06-30] MEDS ORDERED: POLYETHYLENE (MIRALAX) 17 GM PACK PO PRN (23:48)
[2022-06-30] MEDS ORDERED: ALBUTEROL HFA 8 GM INHALER INH PRN (23:48)
[2022-06-30] MEDS ORDERED: NITROGLYCERIN SL 0.4 MG/TAB TAB SL PRN (23:48)
[2022-06-30] MEDS ORDERED: METOPROLOL TARTRATE 1 MG/ML VIAL IV PRN (23:48)
[2022-07-01] MEDS: FUROSEMIDE 20 MG TAB PO SCH ×2 (00:41→09:13)
[2022-07-01] MEDS: HEPARIN SOD 5,000 UNIT/0.5 ML VIAL SQ SCH ×3 (00:41→11:06)
--- NOTE | 2022-07-01 03:57 | History and Physical Report ---
DATE OF ADMISSION: 06/30/2022 CHIEF COMPLAINT: Shortness of breath. HISTORY OF PRESENT ILLNESS: An 81-year-old female with past medical history significant for CAD, status post stent, PFO, hypertension, hyperlipidemia, COPD, Parkinson disease, ongoing tremors, hypothyroidism, prediabetes, GERD, gastroparesis, history of subdural hematoma in July 2019, chronic anemia, baseline hemoglobin around 11, orthostatic hypotension, history of heart catheterization, history of chronic systolic CHF, echo done in last admission of February 2022 showed EF of 15-20%, grade II diastolic dysfunction, moderate mitral and tricuspid regurgitation. Currently at home with hospice.She also uses nocturnal oxygen 2 L while sleeping and also daily as needed, looks like waiting for transition to custodial facility. Lives with her . Presents with shortness of breath for the last couple of days, got worse today. The patient is resting comfortably, hemodynamically stable on 2 L, she is saturating okay. Denies any cough. Denies any fevers. Denies any chest pain. No nausea, no vomiting, no headache, no runny nose, no sore throat. The patient says for last couple of days, she is having some difficulty reading from the left eye. Appetite is okay generally. She states she sometimes has difficulty swallowing, but generally she is eating regular food, no abdominal pain. Somewhat constipated. Denies blood in stool, black stools. Normal bladder movements. She states no swelling in the legs. Ambulating with a walker. ALLERGIES: CELECOXIB, ASPIRIN, HYDROCODONE. PAST MEDICAL HISTORY: As mentioned above. PAST SURGICAL HISTORY: Colonoscopy, cardiac cath, EGDs, injection of lumbosacral spine, appendectomy, cataract surgery, cholecystectomy, incisional hernia repair, sacroiliac joint injection shot, total hysterectomy. MEDICATIONS: Currently, the patient is on tylenol 325 mg 3 tablets p.o. q.4 hours p.r.n., albuterol 2 puffs inhalation q.6 hours p.r.n., aspirin 81 mg p.o. daily, atorvastatin 40 mg p.o. at bedtime, carbidopa/levodopa 1 tablet p.o. q.i.d., cetirizine 10 mg p.o. daily, vitamin D 25 mcg p.o. daily, vitamin B12 1000 mcg p.o. daily, famotidine 40 mg p.o. daily, Lasix 20 mg p.o. b.i.d., levothyroxine 150 mcg p.o. daily, melatonin 5 mg p.o. at bedtime, metoprolol succinate 12.5 mg p.o. daily, multivitamins 1 capsule p.o. daily, Protonix 40 mg p.o. daily, MiraLax 17 grams p.o. daily p.r.n., Senokot-S 2 tablets p.o. daily, sertraline 100 mg p.o. a.m., spironolactone 12.5 mg p.o. a.m. FAMILY HISTORY: Significant for brother had lung cancer, diabetes. Mother had diabetes, heart disorder. Sister has diabetes. SOCIAL HISTORY: , lives with her . No smoking, no alcohol, no drug use. REVIEW OF SYSTEMS: As per HPI. Rest of the review of systems is negative. PHYSICAL EXAMINATION: GENERAL: The patient is old and frail, not in acute distress, she has what looks like ongoing tremor. VITAL SIGNS: Temperature 36.8, pulse 91, respiratory rate 22, blood pressure 134/90, oxygen 100% on 2 L. HEENT: Pupils equal, round and reactive to light. Oral mucosa moist. NECK: No JVD, no neck masses. CARDIOVASCULAR: S1 and S2 heard. Regular rate and rhythm. No murmur, no gallop. RESPIRATORY SYSTEM: Normal AP diameter. No accessory muscle use. No wheezing or crackles. ABDOMEN: Soft, bowel sounds present, nontender, no distention. CENTRAL NERVOUS SYSTEM: Alert and oriented to name and place, could not tell today's date. Recent and remote memory intact, able to give history. Insight is good. Speech is clear. No facial droop. Obeys simple commands. Moves extremities. EXTREMITIES: No edema, no erythema. LABORATORY DATA: WBC 5.3, hemoglobin 11.8, hematocrit 36.4, platelets 199. PT 11.8, INR 1.1. Sodium 139, potassium 3.6, chloride 101, bicarbonate 32, BUN 19, creatinine 1.1, serum glucose 89, calcium 9.1, magnesium 1.9, total bilirubin 0.7, AST 33, ALT 3, alkaline phosphatase 51. Troponin I high sensitive 48.3. BNP 809. TSH 0.4. SARS-CoV-2 PCR positive. Influenza A and B PCR negative. RSV PCR negative. IMAGING DATA: Chest x-ray: Cardiomegaly with no active disease. EKG: Atrial fibrillation at a rate of 90, left axis deviation, no acute ST changes seen. ASSESSMENT AND PLAN: This is an 81-year-old female presents with ongoing shortness of breath and found to have COVID. 1. Shortness of breath. The patient requires 2 L oxygen at the nighttime and uses as needed in the daytime. Currently on 2 L she is saturating fine. She seems to be comfortable. Chest x-ray looks okay. The patient's COVID came back positive. The patient says she is not COVID vaccinated. The patient with history of chronic systolic congestive heart failure, but not volume overloaded. We will continue oxygen supplementation, nebs as needed, home inhalers and monitor in the tele floor. COVID could be contributing, we will get a CT chest. 2. COVID, not vaccinated. She uses oxygen as needed during the daytime chronically and in the nighttime. Currently on 2 L, saturating okay, afebrile. No cough, no obvious COVID symptoms. Chest x-ray looks okay. We will get a CT chest. We will empirically place her on Decadron. Her GFR is less than 30, so we will hold on remdesivir for now, but if her COVID symptoms gets worse, then may be we can give remdesivir. Monitor closely. COVID precautions. 3. Chronic systolic congestive heart failure, last echo done in 2021 showed an EF of 15-20%, grade II chronic diastolic congestive heart failure. Continue her home medications of Lasix 20 mg b.i.d., spironolactone 12.5 mg p.o. a.m., metoprolol succinate and closely monitor for volume overload. 4. Parkinson's disease: Continue home medication. She is having what looks like ongoing tremors. The patient is on home hospice. She says she has sometimes difficulty swallowing, but generally she is on regular diet. Monitor for any aspiration. PT, OT when stable. 5. History of coronary artery disease status post multiple stents. On aspirin, statin, and beta paul. 6. Hyperlipidemia: On statin. 7. Hypertension. On metoprolol succinate and diuretics. We will monitor the blood pressure. The patient also has hx of orthostatic hypotension, we will monitor. 8. History of atrial fibrillation, seems to be new onset, rate controlled. We will place on IV Lopressor p.r.n. The patient has history of traumatic subdural hematoma and subarachnoid hemorrhage in July 2019, will hold on IV heparin for now until seen by Cardiology.echo as per cardiology. We will follow. 10. Questionable left eye vision impairment. The patient says for last couple of days, she could not read from the left eye. On examination, she could count fingers okay. We will get a CT of the head. May need to follow up with ophthalmology. 11. Prediabetes: Follow HbA1c levels. Follow the blood sugar while the patient is getting steroids. 12. Chronic anemia, hemoglobin at 11.8. We will follow the labs. 13. Chronic kidney disease, stage III-IV. We will follow the labs. 14. Mild elevation of troponin. We will follow serial enzymes. 15. Gastroesophageal reflux disease: On Protonix and famotidine. 16. Deep venous thrombosis prophylaxis: We will place her on heparin subcutaneous for now. DISPOSITION: The patient is at home hospice currently. Discharge back to home versus [facility] hosp[facility] care. Social service to help with discharge planning. CODE STATUS: DNR/DNI as per discussion with the patient. Job ID: [id number] [facility] HOSPITALJamie
[2022-07-01] MEDS ORDERED: LEVOTHYROXINE SODIUM 150 MCG TABLET PO SCH (06:30)
[2022-07-01 06:43] LABS: Basophils # (auto) 0.02 K/uL (0-0.2); Basophils % (auto) 0.5 %; Hematocrit (blood only) 35.1 % (37.0-47.0); Hemoglobin 11.7 g/dl (12.0-16.0); Immature Granulocytes # (auto) 0.02 K/uL (0.01-0.20); Immature Granulocytes % (auto) 0.5 %; Lymphocytes # (auto) 0.74 K/uL (1.2-3.4); Lymphocytes % (auto) 16.8 %; Mean Corpuscular Hemoglobin 30.3 pg (25.0-34.0); Mean Corpuscular Hgb Conc 33.3 g/dL (32.0-36.0); Mean Corpuscular Volume 90.9 fL (80.0-100.0); Mean Platelet Volume 10.3 fL (9.4-12.4); Monocytes # (auto) 0.25 K/uL (0.11-0.59); Monocytes % (auto) 5.7 %; Neutrophils # (auto) 3.37 K/uL (1.40-6.50); Neutrophils % (auto) 76.5 %; Platelet Count 193 K/uL (130-400); Red Blood Count 3.86 M/uL (4.20-5.40)
[2022-07-01 06:50] LABS: BUN Creatinine Ratio 18.7 (10-20); Calcium 9.1 mg/dl (8.5-10.1); Creatinine Clr Calc Pharmacy 31.7 ml/min; Est GFR (African American) 55.6 ml/min; Magnesium 1.9 mg/dl (1.7-2.4); Potassium 3.8 mmol/L (3.5-5.1)
[2022-07-01 06:58] LABS: Troponin I High Sensitivity 44.2 pg/ml (0-14)
[2022-07-01 08:10] LABS: Estimated Average Glucose 123 mg/dl; Hemoglobin A1C 5.9 % (4.5-5.6)
--- NOTE | 2022-07-01 08:19 | CT Scan Report ---
CT OF THE HEAD WITHOUT CONTRAST CLINICAL HISTORY: left visual impairment, cva? COMPARISON STUDY: Head CT February 03, 2022. TECHNIQUE: Helical axial images of the head were obtained without IV contrast. Automated exposure con trol was utilized for the study. A dose lowering technique was utilized adhering to the principles o f ALARA. FINDINGS: No acute intracranial hemorrhage, midline shift or mass effect is present. The ventricular system is stable. White matter hypodensity suggests small vessel disease. The appearance of the brain is unchanged. The basal cisterns are patent. No extra-axial collections are present. There are no fi ndings to suggest acute dural sinus thrombosis or acute territorial infarct. No significant calvarial abnormalities are present. IMPRESSION: No acute intracranial findings. No change in appearance of the brain. ACT 112: Negative or not required by law. Electronically signed by: Gabriel Irving M.D. 07/01/2022 8:17 AM
--- NOTE | 2022-07-01 08:26 | CT Scan Report ---
CT OF THE CHEST WITHOUT IV CONTRAST CLINICAL HISTORY: Shortness of breath. Covid. COMPARISON STUDY: Chest CT February 03, 2022 and chest radiograph performed earlier today. CT DOSE: 820.48 mGy.cm TECHNIQUE: Axial images of the chest were obtained without IV contrast. Images were reviewed in the axial, sagittal, and coronal planes. IV contrast was not administered for this examination. Automat ed exposure control was utilized for the study. A dose lowering technique was utilized adhering to t he principles of ALARA. FINDINGS: No enlarged axillary, mediastinal or hilar lymph nodes are noted. Moderate cardiomegaly an d coronary artery calcification is noted. There is no pneumothorax. There is no significant pleural e ffusion. No consolidation is identified to suggest pneumonia. There is mild interlobular septal thick ening. Central airways are patent. No acute fractures within the bony thorax are noted. Extensive vas cular calcification is noted within the upper abdomen. IMPRESSION: 1. No consolidation to suggest pneumonia. 2. Cardiomegaly with extensive coronary artery calcification. Mild interlobular septal thickening may reflect mild pulmonary edema. ACT 112: Negative or not required by law. Electronically signed by: Gabriel Irving M.D. 07/01/2022 8:23 AM
--- NOTE | 2022-07-01 08:32 | Cardiology Consultation ---
Date of Consultation July 01, 2022 Assessment & Plan (1) Paroxysmal atrial fibrillation: (2) Systolic CHF: (3) COVID-19: Plan Medically complex 81-year-old female who initially presented to [facility] emergency department due to shortness of breath secondary to COVID-19 and PAF with RVR (newly diagnosed). Not on AC due to history of spontaneous SDH. Now in rate controlled AFIB in the 70s after IV metoprolol. High-sensitivity troponin mildly elevated however unchanged from previous-mild elevation likely due to the setting of acute illness and tachycardia while in A- fib. Patient currently on hospice-we will continue to treat conservatively. 1. Continue metoprolol succinate 12.5 mg daily. Monitor on telemetry for bradycardia while inpatient 2. Will hold off on anticoagulation given her history of subdural hematoma in the past, bleeding risk outweighs benefit at this time. 3. Treatment of COVID per primary team 4. Continue all other cardiac medications as ordered. Monitor closely for hypervolemia due to steroid use. For now continue Lasix and spironolactone as ordered. Case discussed with Dr. Saleh--no further cardiac recommendations at this time. Please reach out with any further questions or concerns. Supervising Physician Co-Signing Physician Notes I have reviewed the advanced practitioner documentation and agree. I saw and evaluated the patient on date of service referenced in note and have performed the following medically appropriate history and/or exam: Newly discovered A-fib with rapid ventricular response in the setting of COVID-19 infection. History of subdural hematoma, not an anticoagulation candidate. Recommend attempting rate control with low-dose metoprolol succinate and monitoring for possible bradycardia given her age. History of Present Illness Reason for Consultation: Shortness of breath Requesting Physician: Luis Manuel caldera Attending Physician: Chito Sutherland MD History of Present Illness Medically complex 81-year-old female who initially presented to [facility] emergency department due to shortness of breath. COVID test was positive. Also found to be in atrial fibrillation with heart rates in the 90s to low 100s-this is a new diagnosis for her. She was treated with IV metoprolol for heart rates and steroids for her breathing/Covid-19. EKG this morning 07/01: Atrial fib, 77 bpm. QTc 457 ms. Labs: Renal function stable, electrolytes within normal limits. High- sensitivity troponins mildly elevated but unchanged compared to previous (48.3>>44.2) CXR: Cardiomegaly with no active disease in the chest Chest CT: No consolidation to suggest pneumonia, cardiomegaly with extensive coronary artery calcifications, mild intralobular septal thickening may reflect mild pulmonary edema Head CT: No acute intracranial findings Telemetry: Atrial fibrillation, 70 to 90 bpm Chart and telemetry reviewed. In person evaluation was deferred due to positive COVID-19 diagnosis and attempts to limit spread by limiting patient contact. Patient's status reviewed with nursing staff. Problem List: 1. ASCVD 1.Status postApril 2007 PCI of both the RCA and LCX with FABIOLA 2.Status postDecember 2007 PCI of the mid RCA with 2 FABIOLA 3.Status postJanuary 2008 PCI of the proximal LAD 4.Status postNovember 2012 PCI of the RCA with a FABIOLA 5.Cardiac catheterization on 03/25/2013 which demonstrated the following: No evidence of LM disease. 70% lesion in the D1. Mild disease in a medium sized proximal LAD. Nondominant LCX with an existing stent with a 60% lesion. Dominant RCA with a 90% 10 mm long culprit lesion in the mid portion of the vessel s/p PCI with a Xience Expedition Everolimus Eluting coronary stent. 2. Moderate-severe LV systolic dysfunction, 15-20% per echo 3. Diastolic dysfunction 4. Mitral regurgitation 5. PFO with small [id number] right interatrial shunt 6. Hypertension 7. Dyslipidemia 8. Nocturnal hypoxia, on supplemental O2 therapy. 9. Parkinson's disease 10. 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 hydrocodone AdvReac Unknown STOMACH Verified 02/03/22 17:12 IRRITATION Home Medications Medication Instructions Recorded Confirmed Type atorvastatin 40 mg tablet 40 mg PO HS 06/25/19 06/30/22 History melatonin 5 mg tablet 5 mg PO HS 01/07/20 06/30/22 History sertraline 100 mg tablet 100 mg PO QAM 08/16/20 06/30/22 History aspirin 81 mg tablet,delayed 81 mg PO QAM 09/26/20 06/30/22 History release cholecalciferol (vitamin D3) 25 25 mcg PO QAM 09/26/20 06/30/22 History mcg (1,000 unit) capsule (Vitamin D3) carbidopa ER 50 mg-levodopa 200 mg 1 tab PO QID 06/08/21 06/30/22 History tablet,extended release cyanocobalamin (vitamin B-12) 1,000 mcg PO QPM 06/08/21 06/30/22 History 1,000 mcg tablet (Vitamin B-12) metoprolol succinate 25 mg 12.5 mg PO QAM 30 days #15 tabs 08/20/21 06/30/22 Rx tablet,extended release 24 hr acetaminophen 325 mg tablet 975 mg PO Q4 PRN Fever Or Pain 12/04/21 06/30/22 History famotidine 40 mg tablet 40 mg PO DAILY 12/04/21 06/30/22 History pantoprazole 40 mg tablet,delayed 40 mg PO DAILY 12/04/21 06/30/22 History release polyethylene glycol 3350 17 gram 17 g PO DAILY PRN Constipation 12/04/21 06/30/22 History oral powder packet (Miralax) albuterol sulfate 90 mcg/actuation 2 puff inhalation Q6H PRN 02/03/22 06/30/22 History aerosol inhaler Shortness Of Breath Or Wheezing furosemide 20 mg tablet 20 mg PO BID #60 tabs 02/07/22 06/30/22 Rx cetirizine 10 mg tablet 10 mg PO DAILY 06/30/22 06/30/22 History levothyroxine 150 mcg tablet 150 mcg PO DAILYBB 06/30/22 06/30/22 History [id number] 250 mg-dha 90 1 cap PO DAILY 06/30/22 06/30/22 History mg-epa 160 my-iwoj-npie-zeax capsule (Ocuvite Adult 50 Plus) sennosides 8.6 mg-docusate sodium 2 tab-cap PO QAM 06/30/22 06/30/22 History 50 mg tablet (Senna Plus) spironolactone 25 mg tablet 12.5 mg PO QAM 06/30/22 06/30/22 History dexamethasone 6 mg tablet 6 mg PO DAILY #8 tabs 07/01/22 Rx Patient History Medical History Anxiety CAD (coronary artery disease) Status post August 2007 PCI of both the RCA and LCX with FABIOLA Status post April 2008 PCI of the mid RCA with 2 FABIOLA Status post May 2008 PCI of the proximal LAD Status post March 2013 PCI of the RCA with a FABIOLA 7 stents total. Chronic back pain Chronic kidney disease stage 3 - monitors Dysphagia Esophageal spasm Gastroparesis GERD (gastroesophageal reflux disease) HFrEF (heart failure with reduced ejection fraction) Hyperlipidemia Hypertension Hypothyroidism Hypothyroidism Parkinson disease Parkinsons disease Prediabetes Per records Shortness of breath Surgical History History of ankle surgery LEFT History of appendectomy History of cardiac cath 08/2007, 04/2008, 2008, 2012 History of cholecystectomy Per records History of colonoscopy History of heart artery stent x7 total History of herniorrhaphy Per records History of hysterectomy History of thumb surgery Per records- right thumb Hx of angioplasty FOLLOWS [place] S/P left knee arthroscopy S/P right knee arthroscopy x2 Family History Mother Diabetes Brother Myocardial infarction Other No family history of adverse response to anesthesia Social History Smoking Status: Never smoker Second Hand Exposure: No; Do You Dip or Chew Tobacco: No; Tobacco Cessation Education Requested by Patient: No Hx Alcohol Use: No Hx Substance Use: No Preferred Language: Honduran Communication Ability: Effective 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 Results & Data ([facility]) Vital Signs (Past 12 Hours) Vital Signs Temp Pulse Pulse Resp BP BP Pulse Ox 07/01/22 02:05 36.4 C L 79 18 114/68 99 07/01/22 00:00 07/01/22 01:00 36.7 C 92 H 16 119/69 99 06/30/22 22:54 83 20 175/97 H 06/30/22 21:30 170 H O2 Del Method O2 Flow Rate 07/01/22 02:05 Nasal Cannula 07/01/22 00:00 Nasal Cannula 2 07/01/22 01:00 Nasal Cannula 4 06/30/22 22:54 06/30/22 21:30 Laboratory Results Cardiac Enzymes 06/30/22 06/30/22 07/01/22 Range/Units 18:10 18:10 05:42 AST 13 (13-39) U/L Troponin I High Sens 48.3 H 44.2 H (0-14) pg/ml B-Natriuretic Peptide 809 H (0-100) pg/ml Coagulation 06/30/22 06/30/22 Range/Units 18:10 18:10 PT 11.8 (9.0-12.0) Seconds B-Natriuretic Peptide 809 H (0-100) pg/ml CBC 06/30/22 07/01/22 Range/Units 18:10 05:42 WBC 5.36 4.40 L (4.8-10.8) K/ul RBC 3.87 L 3.86 L (4.20-5.40) M/uL Hgb 11.8 L 11.7 L (12.0-16.0) g/dl Hct 36.4 L 35.1 L (37.0-47.0) % Plt Count 199 193 (130-400) K/uL Neut # (Auto) 3.00 3.37 (1.40-6.50) K/uL Lymph # (Auto) 1.58 0.74 L (1.2-3.4) K/uL [place] # (Auto) 0.65 H 0.25 (0.11-0.59) K/uL Eos # (Auto) 0.08 0.00 (0-0.50) K/uL Baso # (Auto) 0.04 0.02 (0-0.2) K/uL Comprehensive Metabolic Panel 06/30/22 07/01/22 Range/Units 18:10 05:42 Sodium 139 140 (136-145) mmol/L Potassium 3.6 3.8 (3.5-5.1) mmol/L Chloride 101 104 (98-107) mmol/L Carbon Dioxide 32 30 (21-32) mmol/L BUN 19 20 (6-23) mg/dl Creatinine 1.18 1.07 (0.6-1.2) mg/dl Glucose 89 139 H (70-99(Fasting)) mg/dl Calcium 9.1 9.1 (8.5-10.1) mg/dl AST 13 (13-39) U/L ALT 3 L (7-52) U/L Alkaline Phosphatase 51 (34-104) U/L Total Protein 6.7 (6.0-8.3) gm/dl Albumin 4.4 (3.4-5.0) gm/dl Intake and Output 06/30/22 07/01/22 07/01/22 22:59 06:59 14:59 Intake Total 150 / 150 Output Total 151 / 151 Balance - / -1 Intake: Oral 150 / 150 Output: Urine 150 / 150 # Bowel Movements / Other: # Unmeasured Voids 1 Weight 54 kg 50.4 kg Weight Measurement Method Built in [facility] Built in [facility] Diagnostic Findings Prior Echo 02/04/2022: LVEF 15 to 20%, mildly dilated LV chamber with normal wall thickness Grade 2 diastolic dysfunction RV normal in size. Systolic function mildly reduced. Moderate aortic sclerosis without stenosis Moderate MR and TR Severe left atrial enlargement PASP 38 mmHg
[2022-07-01] MEDS ORDERED: PANTOprazole 40 MG TAB PO SCH (09:00)
[2022-07-01] MEDS ORDERED: METOPROLOL SUCC 25MG EXT REL TAB PO SCH (09:00)
[2022-07-01] MEDS ORDERED: ASPIRIN 81 MG ECTAB PO SCH (09:00)
[2022-07-01] MEDS ORDERED: FAMOTIDINE 40 MG TABLET PO SCH (09:00)
[2022-07-01] MEDS ORDERED: CHOLECALCIFEROL 1,000 UNITS 25 MCG TAB PO SCH (09:00)
[2022-07-01] MEDS ORDERED: DOCUSATE SODIUM/SENNA 50/8.6MG TAB PO SCH (09:00)
[2022-07-01] MEDS ORDERED: SERTRALINE HCL 100 MG TABLET PO SCH (09:00)
[2022-07-01] MEDS ORDERED: CETIRIZINE HCL 10 MG TABLET PO SCH (09:00)
[2022-07-01] MEDS ORDERED: dexAMETHasone 6 MG in SYRINGE 0 ML IV SCH (09:00)
[2022-07-01] MEDS ORDERED: SPIRONOLACTONE 12.5 MG TAB PO SCH (09:00)
[2022-07-01] MEDS ORDERED: CEROVITE ADV FORMULA TAB PO SCH (09:00)
[2022-07-01] MEDS: CARBIDOPA/LEVODOPA 50/200MG EXT REL TAB PO SCH ×2 (09:13→13:07)
[2022-07-01] MEDS ORDERED: ALUMINUM/MAGNESIUM SUSP 30 ML UDC PO PRN (10:33)
[2022-07-01] MEDS ORDERED: LORazepam 2 MG/1 ML VIAL IV STA (11:38)
[2022-07-01] MEDS ORDERED: LORazepam 0.5 MG TAB PO PRN (11:38)
--- NOTE | 2022-07-01 15:30 | Hospitalist Progress Note ---
Date of Service July 01, 2022 Assessment & Plan (1) Breathlessness: Plan: 81-year-old with significant past medical history including paroxysmal atrial fibrillation, chronic systolic CHF, CAD status postcardiac stent placement, history of subdural hematoma in 2019, COPD, hypothyroidism and other medical condition as mentioned in H&P She has been under hospice care at home Was admitted with acute shortness of breath without any chest pain and/or palpitation Noted to have episodes like this at home and relieved by oral lorazepam as per the daughter Denies any shortness of breath following admission but noted to have COVID-19 virus infection Has been saturating normally on room air (2) COVID-19: Plan: Incidental finding of COVID-19 virus infection No known source of infection, Chest x-ray is not showing any pneumonia and she has been saturating normally on room air She was started with intravenous dexamethasone No remdesivir because of low GFR and the patient does not require it We will advised to have isolation at home We will continue dexamethasone for the next 9 days orally Discussed with the daughter and the patient be discharged home under the care of hospice (3) Systolic CHF: Plan: No fluid overload and/or CHF Appreciate cardiology input and recommendation We will continue current medications (4) Paroxysmal atrial fibrillation: Plan: Rate is controlled Not on any anticoagulation due to history of subarachnoid hemorrhage (5) Parkinsons disease: Plan: No resting tremor Seems to have benign essential tremor (6) Hypothyroidism: Plan: Continue replacement (7) CKD (chronic kidney disease), stage III: Plan: Creatinine stable CODE STATUS DNR/DNI Discussed with the daughter in detail Discussed with the manager rn case The patient will be discharged home with hospice care as before Admission and Anticipated Discharge Date Admission Date: June 30, 2022 Subjective 07/01/2022 The patient was seen and examined in telemetry unit and in the COVID room She has been feeling much better and has an episode of anxiety but she did does not want to take any medicine for that She has been diagnosed with COVID 19 virus infection but does not have any respiratory symptoms Her heart condition remains stable Review of Systems Review of Systems: All systems reviewed and are unremarkable except as noted below Respiratory: No shortness of breath at rest Cardiovascular: Additional Comments: No chest pain and/or palpitation Physical Exam Physical Exam: Lying in bed without any acute distress Constitutional: average body habitus; not ill appearing Eyes: PERRL, conjunctivae normal, anicteric sclerae ENMT: external ear and nose normal, oropharynx normal Neck: trachea midline, no thyromegaly Respiratory: no respiratory distress Auscultation: + diminished lung sounds and + crackles (Minimal crackles at the bases) Cardiovascular: Rate/Rhythm: regular rate and regular rhythm; not tachycardic Heart Sounds: normal S1, normal S2 and + murmur Extremities: + edema (Trace edema bilateral) Gastrointestinal (Abdomen): Inspection/Auscultation: normal bowel sounds; abdomen not distended Percussion/Palpation: abdomen soft; abdomen nontender Musculoskeletal: No acute arthritis involving any joint Neurologic: Alert, awake and oriented x3. Generally weak but no focal sensory or motor deficit appreciated Lymphatic: no cervical or axillary lymphadenopathy Results & Data Results & Data ([facility]) Vital Signs (Past 12 Hours) Vital Signs Temp Pulse Pulse Resp BP Pulse Ox Pulse Ox 07/01/22 13:48 95 07/01/22 10:57 99 07/01/22 10:46 36.6 C 84 19 135/82 91 07/01/22 10:31 77 07/01/22 10:25 O2 Del Method O2 Del Method O2 Flow Rate 07/01/22 13:48 Room Air 07/01/22 10:57 Nasal Cannula 2.0 07/01/22 10:46 Nasal Cannula 6.0 07/01/22 10:31 07/01/22 10:25 Nasal Cannula 2 Laboratory Results Short CBC 06/30/22 07/01/22 Range/Units 18:10 05:42 WBC 5.36 4.40 L (4.8-10.8) K/ul Hgb 11.8 L 11.7 L (12.0-16.0) g/dl Hct 36.4 L 35.1 L (37.0-47.0) % Plt Count 199 193 (130-400) K/uL BMP 06/30/22 07/01/22 18:10 05:42 Sodium 139 140 Potassium 3.6 3.8 Chloride 101 104 Carbon Dioxide 32 30 BUN 19 20 Creatinine 1.18 1.07 Glucose 89 139 H Calcium 9.1 9.1 Liver Function 06/30/22 Range/Units 18:10 Total Bilirubin 0.7 (0.2-1.0) mg/dl AST 13 (13-39) U/L ALT 3 L (7-52) U/L Alkaline Phosphatase 51 (34-104) U/L Albumin 4.4 (3.4-5.0) gm/dl Medications Administered Current Inpatient Medications Acetaminophen (Acetaminophen 325 Mg Tab) 650 mg PO Q4H PRN PRN Reason: Pain or Fever Stop: 07/30/22 23:47 Al Hydrox/Mg Hydrox/Simethicone (Aluminum/Magnesium Susp 30 Ml Udc) 30 ml PO Q6H PRN PRN Reason: Dyspepsia Stop: 07/31/22 10:32 Last Admin: 07/01/22 11:06 Dose: 30 ml Albuterol (Albuterol Hfa 8 Gm Inhaler) 2 puffs INH Q6H PRN PRN Reason: Shortness Of Breath Or Wheezin Stop: 07/30/22 23:47 Aspirin (Aspirin 81 Mg Ectab) 81 mg PO QAM JESUS Stop: 07/31/22 08:59 Last Admin: 07/01/22 09:12 Dose: 81 mg Atorvastatin Calcium (Atorvastatin 40 Mg Tab) 40 mg PO HS JESUS Stop: 07/31/22 20:59 Carbidopa/Levodopa (Carbidopa/Levodopa 50/200mg Ext Rel Tab) 1 tab PO QID JESUS Stop: 07/31/22 08:59 Last Admin: 07/01/22 13:07 Dose: 1 tab Cetirizine HCl (Cetirizine Hcl 10 Mg Tablet) 10 mg PO DAILY JESUS Stop: 07/31/22 08:59 Last Admin: 07/01/22 09:12 Dose: 10 mg Cyanocobalamin (Cyanocobalamin (B-12) 500 Mcg Tablet) 1,000 mcg PO QPM JESUS Stop: 07/31/22 20:59 Famotidine (Famotidine 40 Mg Tablet) 40 mg PO DAILY JESUS Stop: 07/31/22 08:59 Last Admin: 07/01/22 09:11 Dose: 40 mg Furosemide (Furosemide 20 Mg Tab) 20 mg PO BID JESUS Stop: 07/30/22 23:47 Last Admin: 07/01/22 09:13 Dose: 20 mg Heparin Sodium (Porcine) (Heparin Sod 5,000 Unit/0.5 Ml Vial) 5,000 units SQ Q8 JESUS Stop: 07/30/22 23:47 Last Admin: 07/01/22 11:06 Dose: Not Given Dexamethasone 6 mg/ Syringe 1.5 mls @ 1 mls/min IV Q24H JESUS Stop: 07/31/22 08:59 Last Admin: 07/01/22 09:14 Dose: 1 mls/min Levalbuterol HCl (Levalbuterol Hcl 1.25 Mg/3 Ml Neb) 1.25 mg NEB Q4H PRN; Protocol PRN Reason: Shortness Of Breath Or Wheezing Stop: 07/30/22 23:47 Levothyroxine Sodium (Levothyroxine Sodium 150 Mcg Tablet) 150 mcg PO DAILYBB [facility] Stop: 07/31/22 06:29 Last Admin: 07/01/22 05:26 Dose: 150 mcg Lorazepam (Lorazepam 0.5 Mg Tab) 0.5 mg PO Q8H PRN PRN Reason: Anxiety Stop: 07/31/22 11:37 Melatonin (Melatonin 3 Mg Tab) 4.5 mg PO HS [facility] Stop: 07/31/22 20:59 Metoprolol Succinate (Metoprolol Succ 25mg Ext Rel Tab) 12.5 mg PO QAM [facility] Stop: 07/31/22 08:59 Last Admin: 07/01/22 09:12 Dose: 12.5 mg Multivitamins/Minerals (Cerovite Adv Formula Tab) 1 tab PO DAILY [facility] Stop: 07/31/22 08:59 Last Admin: 07/01/22 09:12 Dose: 1 tab Nitroglycerin (Nitroglycerin Sl 0.4 Mg/Tab Tab) 0.4 mg SL UD PRN PRN Reason: Chest Pain Stop: 07/30/22 23:47 Pantoprazole Sodium (Pantoprazole 40 Mg Tab) 40 mg PO DAILY [facility] Stop: 07/31/22 08:59 Last Admin: 07/01/22 09:11 Dose: 40 mg Polyethylene Glycol (Polyethylene (Miralax) 17 Gm Pack) 17 gm PO DAILY PRN PRN Reason: Constipation Stop: 07/30/22 23:47 Senna/Docusate Sodium (Docusate Sodium/Senna 50/8.6mg Tab) 2 tab PO QAM [facility] Stop: 07/31/22 08:59 Last Admin: 07/01/22 09:13 Dose: 2 tab Sertraline HCl (Sertraline Hcl 100 Mg Tablet) 100 mg PO QAM [facility] Stop: 07/31/22 08:59 Last Admin: 07/01/22 09:11 Dose: 100 mg Spironolactone (Spironolactone 12.5 Mg Tab) 12.5 mg PO [facility] Stop: 07/31/22 08:59 Last Admin: 07/01/22 09:12 Dose: 12.5 mg Vitamin D (Cholecalciferol 1,000 Units 25 Mcg Tab) 1,000 units PO [facility] Stop: 07/31/22 08:59 Last Admin: 07/01/22 09:13 Dose: 1,000 units
--- NOTE | 2022-07-01 17:08 | Electrocardiogram Report ---
Test Reason : Blood Pressure : / mmHG Vent. Rate : 077 BPM Atrial Rate : 234 BPM P-R Int : 000 ms QRS Dur : 094 ms QT Int : 404 ms P-R-T Axes : 000 -35 158 degrees QTc Int : 457 ms Poor data quality, interpretation may be adversely affected Atrial fibrillation Left axis deviation Minimal voltage criteria for LVH, may be normal variant Abnormal ECG When compared with ECG of 30-JUN-2022 18:06, (unconfirmed) Nonspecific T wave abnormality now evident in Inferior leads Confirmed by Wei Clark ([id number]) on 07/01/2022 5:07:26 PM Referred By: REFERRED SELF Confirmed By:Jose Clark
--- NOTE | 2022-07-01 17:12 | Electrocardiogram Report ---
Test Reason : Blood Pressure : / mmHG Vent. Rate : 098 BPM Atrial Rate : 089 BPM P-R Int : 000 ms QRS Dur : 092 ms QT Int : 390 ms P-R-T Axes : 000 -41 131 degrees QTc Int : 497 ms Atrial fibrillation Left axis deviation Minimal voltage criteria for LVH, may be normal variant Abnormal ECG When compared with ECG of 03-FEB-2022 16:26, Atrial fibrillation has replaced Sinus rhythm Nonspecific T wave abnormality no longer evident in Inferior leads T wave inversion less evident in Lateral leads Confirmed by Wei Clark ([id number] on 07/01/2022 5:11:43 PM Referred By: REFERRED SELF Confirmed By:Jose Clark
[2022-07-01] MEDS ORDERED: CYANOCOBALAMIN (B-12) 500 MCG TABLET PO SCH (21:00)
[2022-07-01] MEDS ORDERED: ATORVASTATIN 40 MG TAB PO SCH (21:00)
[2022-07-01] MEDS ORDERED: MELATONIN 3 MG TAB PO SCH (21:00)
--- NOTE | 2022-07-02 07:21 | Discharge Summary ---
Date of Service July 02, 2022 Admission HPI Per Admitting Provider DICTATED BY:Khoa Pitts MD DATE OF ADMISSION: 06/30/2022 CHIEF COMPLAINT: Shortness of breath. HISTORY OF PRESENT ILLNESS: An 81-year-old female with past medical history significant for CAD, status post stent, PFO, hypertension, hyperlipidemia, COPD, Parkinson disease, ongoing tremors, hypothyroidism, prediabetes, GERD, gastroparesis, history of subdural hematoma in July 2019, chronic anemia, baseline hemoglobin around 11, orthostatic hypotension, history of heart catheterization, history of chronic systolic CHF, echo done in last admission of February 2022 showed EF of 15-20%, grade II diastolic dysfunction, moderate mitral and tricuspid regurgitation. Currently at home with hospice.She also uses nocturnal oxygen 2 L while sleeping and also daily as needed, looks like waiting for transition to custodial facility. Lives with her . Presents with shortness of breath for the last couple of days, got worse today. The patient is resting comfortably, hemodynamically stable on 2 L, she is saturating okay. Denies any cough. Denies any fevers. Denies any chest pain. No nausea, no vomiting, no headache, no runny nose, no sore throat. The patient says for last couple of days, she is having some difficulty reading from the left eye. Appetite is okay generally. She states she sometimes has difficulty swallowing, but generally she is eating regular food, no abdominal pain. Somewhat constipated. Denies blood in stool, black stools. Normal bladder movements. She states no swelling in the legs. Ambulating with a walker. Admission Exam Per Admitting Provider GENERAL: The patient is old and frail, not in acute distress, she has what looks like ongoing tremor. VITAL SIGNS: Temperature 36.8, pulse 91, respiratory rate 22, blood pressure 134/90, oxygen 100% on 2 L. HEENT: Pupils equal, round and reactive to light. Oral mucosa moist. NECK: No JVD, no neck masses. CARDIOVASCULAR: S1 and S2 heard. Regular rate and rhythm. No murmur, no gallop. RESPIRATORY SYSTEM: Normal AP diameter. No accessory muscle use. No wheezing or crackles. ABDOMEN: Soft, bowel sounds present, nontender, no distention. CENTRAL NERVOUS SYSTEM: Alert and oriented to name and place, could not tell today's date. Recent and remote memory intact, able to give history. Insight is good. Speech is clear. No facial droop. Obeys simple commands. Moves extremities. EXTREMITIES: No edema, no erythema. Principal Diagnosis Episode of short of breath, known episode at home controlled with oral lorazepam, COVID-19 virus infection without any respiratory symptoms, multiple comorbid medical condition under the care of home hospice Discharge Exam Lying in bed without any acute distress Constitutional average body habitus; not ill appearing Eyes PERRL, conjunctivae normal, anicteric sclerae ENMT external ear and nose normal, oropharynx normal Neck trachea midline, no thyromegaly Respiratory no respiratory distress Auscultation: + diminished lung sounds and + crackles (Minimal crackles at the bases) Cardiovascular Rate/Rhythm: regular rate and regular rhythm; not tachycardic Heart Sounds: normal S1, normal S2 and + murmur Extremities: + edema (Trace edema bilateral) Gastrointestinal (Abdomen) Inspection/Auscultation: normal bowel sounds; abdomen not distended Percussion/Palpation: abdomen soft; abdomen nontender Lymphatic no cervical or axillary lymphadenopathy Discharge Data Allergies Allergy/AdvReac Type Severity Reaction Status Date / Time celecoxib AdvReac Intermediate GI SYMPTOMS Verified 02/03/22 17:12 aspirin AdvReac Mild Gastrointestinal Verified 02/03/22 17:12 Upset with 325mg dose. hydrocodone AdvReac Unknown STOMACH Verified 02/03/22 17:12 IRRITATION Consultations 06/30/22 20:12 ED Decision to Admit Stat 07/01/22 08:00 Consult Cardiology Routine Ordered Studies 06/30/22 21:31 CT chest diagnostic wo con Urgent CT head/brain wo con Urgent Hospital Course (1) Breathlessness: 81-year-old with significant past medical history including paroxysmal atrial fibrillation, chronic systolic CHF, CAD status postcardiac stent placement, history of subdural hematoma in 2019, COPD, hypothyroidism and other medical co ndition as mentioned in H&P She has been under hospice care at home Was admitted with acute shortness of breath without any chest pain and/or palpitation Noted to have episodes like this at home and relieved by oral lorazepam as per the daughter Denies any shortness of breath following admission but noted to have COVID-19 virus infection Has been saturating normally on room air (2) COVID-19: Incidental finding of COVID-19 virus infection No known source of infection, Chest x-ray is not showing any pneumonia and she has been saturating normally on room air She was started with intravenous dexamethasone No remdesivir because of low GFR and the patient does not require it We will advised to have isolation at home We will continue dexamethasone for the next 9 days orally Discussed with the daughter and the patient be discharged home under the care of hospice (3) Systolic CHF: No fluid overload and/or CHF Appreciate cardiology input and recommendation We will continue current medications (4) Paroxysmal atrial fibrillation: Rate is controlled Not on any anticoagulation due to history of subarachnoid hemorrhage (5) Parkinsons disease: No resting tremor Seems to have benign essential tremor (6) Hypothyroidism: Continue replacement (7) CKD (chronic kidney disease), stage III: Creatinine stable CODE STATUS DNR/DNI Discussed with the daughter in detail Discussed with the watch case polisher The patient will be discharged home with hospice care as before Total Time Total Time Spent Total Time Spent (In Minutes): 35 minutes Discharge Plan Discharge Items Patient Disposition: Hospice - Home Reason For Visit: SOB Discharge Diagnosis: Episode of short of breath, known episode at home controlled with oral lorazepam, COVID-19 virus infection without any respiratory symptoms, multiple comorbid medical condition under the care of home hospice Activity: As commented below Activity Comment: Continue hospice care at home Non-emergency contact: Primary Care Provider Call non-emergency contact if: you have any medication questions and your symptoms worsen Follow-up/Referrals: Raisa Martin MD [Primary Care Provider] - (Follow-up as per hospice) Diet: Heart Healthy Addtl Attending Provider Instructions: Please take precautions to avoid falls You need to be in isolation for next 9 days for COVID-19 virus infection Finish the course of dexamethasone No change in your other medications Addtl [place] Compounder Provider Instructions: Home Isolation COVID-19 Instructions The following information about Home Isolation is from the CDC Website: https://www.cdc.gov/coronavirus/2019-ncov/hcp/ljrabald-ccpvbye-biczdx.html Stay home except to get medical care People who are mildly ill with COVID-19 are able to isolate at home during their illness. You should restrict activities outside your home, except for getting medical care. Do not go to work, school, or public areas. Avoid using public transportation, ride-sharing, or taxis. Separate yourself from other people and animals in your home People: As much as possible, you should stay in a specific room and away from other people in your home. Also, you should use a separate bathroom, if available. Animals: You should restrict contact with pets and other animals while you are sick with COVID-19, just like you would around other people. Although there have not been reports of pets or other animals becoming sick with COVID-19, it is still recommended that people sick with COVID-19 limit contact with animals until more information is known about the virus. When possible, have another member of your household care for your animals while you are sick. If you are sick with COVID-19, avoid contact with your pet, including petting, snuggling, being kissed or licked, and sharing food. If you must care for your pet or be around animals while you are sick, wash your hands before and after you interact with pets and wear a face mask. Call ahead before visiting your doctor If you have a medical appointment, call the healthcare provider and tell them that you have or may have COVID-19. This will help the healthcare providers office take steps to keep other people from getting infected or exposed. Wear a face mask You should wear a face mask when you are around other people (e.g., sharing a room or vehicle) or pets and before you enter a healthcare providers office. If you are not able to wear a face mask (for example, because it causes trouble breathing), then people who live with you should not stay in the same room with you, or they should wear a face mask if they enter your room. Cover your coughs and sneezes Cover your mouth and nose with a tissue when you cough or sneeze. Throw used tissues in a lined trash can. Immediately wash your hands with soap and water for at least 20 seconds or, if soap and water are not available, clean your hands with an alcohol-based hand boom stick worker that contains at least 60% alcohol. Clean your hands often Wash your hands often with soap and water for at least 20 seconds, especially after blowing your nose, coughing, or sneezing; going to the bathroom; and before eating or preparing food. If soap and water are not readily available, use an alcohol-based hand boom stick worker with at least 60% alcohol, covering all surfaces of your hands and rubbing them together until they feel dry. Soap and water are the best option if hands are visibly dirty. Avoid touching your eyes, nose, and mouth with unwashed hands. Avoid sharing personal household items You should not share dishes, drinking glasses, cups, eating utensils, towels, or bedding with other people or pets in your home. After using these items, they should be washed thoroughly with soap and water. Clean all high-touch surfaces everyday High touch surfaces include counters, tabletops, doorknobs, bathroom fixtures, toilets, phones, keyboards, tablets, and bedside tables. Also, clean any surfaces that may have blood, stool, or body fluids on them. Use a household cleaning spray or wipe, according to the label instructions. Labels contain instructions for safe and effective use of the cleaning product including precautions you should take when applying the product, such as wearing gloves and making sure you have good ventilation during use of the product. Monitor your symptoms Seek prompt medical attention if your illness is worsening (e.g., difficulty breathing).Beforeseeking care, call your healthcare provider and tell them that you have, or are being evaluated for, COVID-19. Put on a face mask before you enter the facility. These steps will help the healthcare providers office to keep other people in the office or waiting room from getting infected or exposed. Ask your healthcare provider to call the local or [facility] health department. Persons who are placed under active monitoring or facilitated self- monitoring should follow instructions provided by their local health department or occupational health professionals, as appropriate. When working with your local health department check their available hours. If you have a medical emergency and need to call 911, notify the dispatch personnel that you have, or are being evaluated for COVID-19. If possible, put on a face mask before emergency medical services arrive. Discontinuing home isolation Patients with confirmed COVID-19 should remain under home isolation precautions until the risk of secondary transmission to others is thought to be low. The decision to discontinue home isolation precautions should be made on a [id number] basis, in consultation with healthcare providers and [facility] and [facility] health departments. Pending Studies at Discharge: No Stand-Alone Forms: My [facility] Medications and DC Order Prescriptions: New dexamethasone 6 mg tablet 6 mg PO DAILY Qty: 8 0RF Continued atorvastatin 40 mg Tablet 40 mg PO HS melatonin 5 mg Tablet 5 mg PO HS sertraline 100 mg tablet 100 mg PO QAM carbidopa-levodopa 50-200 mg tablet extended release 1 tab PO QID cyanocobalamin (vitamin B-12) [Vitamin B-12] 1,000 mcg Tablet 1,000 mcg PO QPM albuterol sulfate 90 mcg/actuation HFA aerosol inhaler 2 puff INHALATION Q6H PRN (Reason: Shortness Of Breath Or Wheezing) furosemide 20 mg tablet 20 mg PO BID Qty: 60 1RF Rx Instructions: take 1 tablet in the morning and 1 at noon cetirizine 10 mg tablet 10 mg PO DAILY spironolactone 25 mg tablet 12.5 mg PO QAM levothyroxine 150 mcg tablet 150 mcg PO DAILYBB sennosides-docusate sodium [Senna Plus] 8.6-50 mg tablet 2 tab-cap PO QAM Ocuvite Adult 50 Plus 250 mg (90 mg-160 mg) capsule 1 cap PO DAILY aspirin 81 mg Tablet,Delayed Release (Dr/Ec) 81 mg PO QAM cholecalciferol (vitamin D3) [Vitamin D3] 25 mcg (1,000 unit) Capsule 25 mcg PO QAM metoprolol succinate 25 mg Tablet Extended Release 24 Hr 12.5 mg PO QAM 30 Days Qty: 15 1RF acetaminophen 325 mg tablet 975 mg PO Q4 PRN (Reason: Fever Or Pain) polyethylene glycol 3350 [Miralax] 17 gram Powder In Packet 17 g PO DAILY PRN (Reason: Constipation) famotidine 40 mg tablet 40 mg PO DAILY pantoprazole 40 mg tablet,delayed release (DR/EC) 40 mg PO DAILY Discharge Orders: Discharge Order (Routine); Ordered 07/01/22 Ordered By: Chito Sutherland Admission Data Admit Date/Time: 06/30/22 21:30 Attending Provider: Chito Sutherland Admit Provider: Khoa Pitts Primary Care Provider: Raisa Martin Other Providers: Khoa Pitts ; Vin Saleh ; Jacoby Baldwin ; Eugene Ferro ; Cyrus Coles ; Jony Crystal ; Murali Garcia ; Luisa Plummer ; Rere Melendez ; Britany Miller ; Jett Ken Other Interventions: Discharge Summary Assessment (RN) Last Done: 07/01/22 16:02
== END 2022-07-01 16:24 | disposition hospice, home (50) | DRG 177 ==
LOC: ED 17:55 → 2S 21:30
DX: Z79.890 Hormone replacement therapy; E78.5 Hyperlipidemia, unspecified; I13.0 Hypertensive heart and chronic kidney disease with heart failure and stage 1 through stage 4 chronic kidney disease, or unspecified chronic kidney disease; K21.9 Gastro-esophageal reflux disease without esophagitis; Z79.82 Long term (current) use of aspirin; Z66 Do not resuscitate; Z79.899 Other long term (current) drug therapy; I50.23 Acute on chronic systolic (congestive) heart failure; Z88.8 Allergy status to other drugs, medicaments and biological substances; J44.9 Chronic obstructive pulmonary disease, unspecified; Z28.310 Unvaccinated for COVID-19; E03.9 Hypothyroidism, unspecified; R73.03 Prediabetes; N18.30 Chronic kidney disease, stage 3 unspecified; G20 Parkinson's disease; Z88.6 Allergy status to analgesic agent; D64.9 Anemia, unspecified; I50.810 Right heart failure, unspecified; I48.0 Paroxysmal atrial fibrillation; I25.10 Atherosclerotic heart disease of native coronary artery without angina pectoris; U07.1 COVID-19; Z88.5 Allergy status to narcotic agent